=== PATIENT | female | born 1965 | race Caucasian/White ===

== ENCOUNTER 2019-10-22 10:04 | Inpatient (IN) | payer MEDICARE, MEDICAID, SELFPAY ==
[2019-10-22] VITALS (23 sets, daily range): BP systolic 103–145; BP diastolic 58–91; PULSE 58–98; RESP 20–46; TEMP 36.9–37.4; O2SAT 86–96; BMI 37.9
--- NOTE | 2019-10-22 09:22 | ED_ITS ---
Entered by Angeles Taylor, acting as scribe for HPI - SOB/Dyspnea General: Chief Complaint: Shortness of Breath/Dyspnea Stated Complaint: RESP DISTRESS Time Seen by Provider: 10/22/19 10:07 History of Present Illness: HPI Narrative: 54 yo female presents with respiratory distess. Pt is on CPAP upon arrival. Pt states that she has been having a low grade fever. Pt states that she has had back and abdomen pain. Pt states that her pain is about a 4/10. Pt states that she has a moderatly productive cough, she is coughing up clear sputum. MD elicited complaint: shortness of breath Severity: moderate Exacerbating factors: lying flat, exertion and coughing Relieving factors: other (CPAP) Associated symptoms: Reports abdominal pain, cough, fever(s) and other (back pain); Deny chest congestion, chest pain, dizziness, extremity pain, hemoptysis, nause a, orthopnea, palpitations, polydipsia, polyuria or vomiting Treatment prior to arrival: other (CPAP) Review of Systems Const: Reports: fever and fatigue; Denies: chills, body aches, change in appetite, change in weight, malaise or night sweats Eyes: Denies: change in vision, eye discharge or eye redness ENMT: Denies: throat pain, painful swallowing, hoarseness, dental pain, ear pain, ear discharge, Change in hearing, nasal discharge or nasal congestion Card: Denies: chest pain, palpitations, edema, swelling of feet/ankles, shortness of breath on exertion, shortness of breath when lying down or leg pain with exertion Resp: Reports: shortness of breath; Denies: wheezing, coughing up blood or chest congestion GI: Reports: abdominal pain; Denies: nausea, vomiting, vomiting blood, coffee grounds in vomit, constipation, bloating or black tarry stool : Denies: urinary urgency, urinary hesitancy, urinary dribbling, decreased urine ouput or vaginal bleeding Musc: Reports: back pain; Denies: neck pain, extremity pain, extremity swelling, joint pain, joint swelling or redness Skin/Breast: Denies: rash, itching, redness, sores or new lesion Neuro: Denies: headache, numbness in extremities, weakness in extremities, changes in sensation, difficulty walking, frequent falls, dizziness or vertigo Psych: Denies: anxiety or depression Endo: Denies: excessive urination, excessive thirst, tired all the time, cold intolerance, excessive sweating or heat intolerance Memo/Lymph: Denies: easy bruising, easy bleeding or enlarged lymph nodes All/Imm: Denies: hives, throat swelling, facial swelling, acute wheezing or seasonal allergies PFSH ED PFSH: Statuses (acute, chronic, etc) shown below reflect problem list status as previously entered and may not be historically accurate Medical History (Updated 10/26/19 @ 21:23 by Jairon Smith MD) Acute on chronic respiratory failure with hypoxemia (Acute) Anxiety and depression (Acute) Chronic pain (Acute) COPD (chronic obstructive pulmonary disease) (Inactive) GERD (gastroesophageal reflux disease) (Acute) Hepatitis C virus infection cured after antiviral drug therapy (Acute) Hyperlipemia (Acute) Hypertension (Acute) Insomnia (Acute) Obstructive sleep apnea (Acute) Ovarian cyst (Acute) Pulmonary embolism (Acute) Spinal stenosis (Acute) Surgical History (Updated 10/26/19 @ 21:23 by Jairon Smith MD) H/O section (Acute) Status post left foot surgery (Acute) Family History (Updated 10/22/19 @ 16:14 by Ramses Martin MD) Mother Cancer Breast cancer Social History (Updated 10/26/19 @ 21:24 by Jairon Smith MD) Smoking and tobacco status: current every day smoker Alcohol intake: never Substance/Drug Use: current Substance/Drug use frequency: daily Substance/Drug use type: Marijuana Last substance use date: 10/26/19 Household members: children Physical Exam Const: COMMON NORMALS: oriented x3; apparent distress and negative for healthy appearing GENERAL APPEARANCE: cooperative ORIENTATION/CONSCIOUSNESS: Yes awake, Yes oriented to person, Yes oriented to place and Yes oriented to time HENMT: COMMON NORMALS: normocephalic, head/scalp atraumatic, hearing grossly normal bilaterally, moist oral mucous membranes and oropharynx normal HEAD & SCALP: normal to inspection, normocephalic and atraumatic Eye: COMMON NORMALS: PERRL, EOMs intact bilaterally, conjunctivae normal and no scleral icterus CONJUNCTIVA: Yes conjunctivae normal PUPIL: Yes PERRL Neck/C-Spine: COMMON NORMALS: full ROM, no lymphadenopathy, supple and no JVD Lymph: LYMPHATIC: no lymphadenopathy noted Resp: COMMON NORMALS: normal respiratory effort and clear to auscultation bilaterally AUSCULTATION: clear to auscultation bilaterally, no rales, no rhonchi and no wheezes Cardio: COMMON NORMALS: no JVD, regular rate and regular rhythm RATE: regular rate RHYTHM: regular rhythm GI: COMMON NORMALS: normal to inspection, nondistended, normoactive bowel sounds, soft to palpation, non-tender, no hepatosplenomegaly and no masses PALPATION: Yes soft and Yes no hepatosplenomegaly : COMMON NORMALS: Yes no CVA tenderness BLADDER/KIDNEY EXAM: Yes no CVA tenderness Back/Pelvis: COMMON NORMALS: no CVA tenderness and thoracic and lumbar spine normal to inspection Extremity: COMMON NORMALS: normal to inspection, full ROM, normal capillary refill, no calf tenderness and no pedal edema Neuro: COMMON NORMALS: oriented x3 SENSORIUM/ORIENTATION: Yes oriented to person, Yes oriented to place and Yes oriented to time Psych: COMMON NORMALS: mental status grossly normal, denies homicidal ideation and denies suicidal ideation Skin: COMMON NORMALS: no rashes or lesions noted GENERAL SKIN EXAM: no rashes or lesions noted Course Vital Signs: Vital signs: Vital Signs Temperature 97.9 F 10/25/19 12:57 Pulse Rate 68 10/25/19 12:57 Respiratory Rate 18 10/25/19 12:57 Blood Pressure 126/78 10/25/19 12:57 Pulse Oximetry 85 L 10/25/19 13:10 MDM - SOB/Dyspnea Lab Data: Labs: Lab Results 10/22/19 10/22/19 10/22/19 Range/Units 09:15 09:15 09:24 WBC 11.2 H (4.0-10.0) 10^3/ uL RBC 4.51 (4.1-5.3) 10^6/u L Hgb 13.8 (11.5-15.3) g/dL Hct 42.8 (37.0-47.0) % MCV 94.9 (81-99) fL MCH 30.6 (28.0-34.0) pg MCHC 32.2 (30.0-36.0) g/dL RDW 12.3 (12.1-15.1) % Plt Count 156 (130-400) 10^3/c mm MPV 11.3 H (7.4-10.4) fL Neut % (Auto) 85.6 % Lymph % (Auto) 7.6 % [place] % (Auto) 5.9 % Eos % (Auto) 0.1 % Baso % (Auto) 0.4 % Neut # (Auto) 9.6 H (1.8-7.7) 10^3/u L Lymph # (Auto) 0.9 (0.8-4.8) 10^3/u L [place]ks # (Auto) 0.7 (0.2-0.9) 10^3/u L Eos # (Auto) 0.0 (0.0-0.8) 10^3/u L Baso # (Auto) 0.0 (0.0-0.1) 10^3/u L Nucleated RBC % (a uto) 0 % Nucleated RBCs # 0.0 /100WBC Specimen Type Arterial Sample Site Radial, left ABG pH 7.38 (7.35-7.45) ABG pCO2 53.5 H (35-45) mmHg ABG pO2 62.3 L (80.0-100.0) mmH g ABG HCO3 31.6 H (22-26) mmol/L ABG Base Excess 4.9 H (-2.0-2.0) mmol/ L Glenn Test Pos Hematocrit 46.8 (37-47) % O2 Delivery Device Bipap FiO2 50.0 % Mode BiPAP 22/10 Specimen Drawn By [facility] ID broma Sodium 137 (136-145) mmol/L Potassium 3.5 (3.5-5.1) mmol/L Chloride 99 (98-107) mmol/L Carbon Dioxide 27 (22-29) mmol/L Anion Gap 14.5 (5-19) BUN 5 L (6-20) mg/dL Creatinine 0.5 (0.5-0.9) mg/dL GFR Calculation 127.6 (90-130) mL/min Glucose 138 H (74-109) mg/dL Calcium 8.7 (8.6-10.0) mg/Dl Total Bilirubin 0.8 (0.15-1.2) mg/dL AST 8 (0-32) U/L ALT 8 (0-33) U/L Alkaline Phosphata se 90 (35-105) IU/L Total Protein 6.1 L (6.6-8.7) g/dL Albumin 3.7 (3.5-5.2) g/dL Globulin 2.4 (1.3-4.6) g/dL Imaging Data^: CT Chest: My impression: WS: [id number] CTA scan of the chest with IV contrast. Additional two-dimensional coronal and sagittal reconstruction and MIP images was performed. 10/22/2019 Clinical Data: dyspnea Comparison: CTA of the chest, 05/24/2019. DLP: 1076.[address] scans at [facility] use at least one of these dose optimization techniques: automated exposure control; mA and/or kV adjustment per patient size (includes targeted exams where dose is matched to clinical indication); or iterative reconstruction. Findings: The central pulmonary arteries fill normally with no evidence of intermittent luminal filling defects. The small vessels of the lower lobes appear to have small intraluminal defects which could indicate minimal pulmonary embolic disease. No nodules, masses or effusions are seen. Groundglass opacities noted in the prior study are not present. There is minimal atelectasis in the lingula of the left upper lobe. There is a small 0.8 cm pleural-based density in the posterior aspect of the left lower lobe seen best on image 29 of 63 on the lung windows which has not changed. The heart size is normal with no pericardial effusion. The pulmonary arterial system and thoracic aorta demonstrate no abnormalities or dil atations. There is no axillary or significant mediastinal adenopathy. The thyroid gland shows normal enhancement. The trachea bifurcates into the bronchi. The upper abdomen shows no abnormalities. The visualized liver, spleen, pancreas, gallbladder, adrenal glands and superior poles of the kidneys are not remarkable. The bones of the thoracic and upper lumbar spine are not remarkable. CT/CT angio chest PE protcl [id number] Impression: 1. Possible bilateral small pulmonary emboli. 2. Groundglass opacities have resolved. 3. Minimal atelectasis in the lingula of left upper lobe and no change in pleural based density in left lower lobe. 4. Emergency room was contacted at 1330 hours. Dictated By: Nanette Jones MD Signed By: Nanette Jones MD CXR: Radiologist's impression: Patient: Allan Schneider MR#: [id number] : 10/18/2020 Acct:[id number] Age/Sex: 1Y 00M / M ADM Date: 10/22/19 Loc: ER Attending Dr: Ordering Physician: Susana Singh Date of Service: 10/22/19 Procedure(s): XR chest 2V* [id number] Accession Number(s): [id number] Report Number: [id number] WS: [id number] Chest 2 views, 10/22/2019 Clinical Data: fever Comparison: None. Findings: No nodules, masses or effusions are seen. The heart is normal. The pulmonary vascularity is not increased. No pneumonia or pneumothorax is seen. XR/XR chest 2V* [id number] Impression: Negative chest. Dictated By: Nanette Jones MD Signed By: Nanette Jones MD Signed Date/Time:10/22/19 1237 DD/ 1230 Discharge Plan Discharge Patient Disposition: Admitted As Inpatient Admit Provider: Ramses Martin Condition: Stable Discharge Orders: Discharge Order (Routine); Ordered 10/25/19 Ordered By: Willard Gomes Referrals: Tayler Lan APRN [Referring] - 4-7 days (PLEASE CALL TAYLER LAN APRN SaturdayOctober TO MAKE A FOLLOW UP APPOINTMENT.) Discharge Activity: Oxygen as instructed Patient Instructions: Nicotine (Absorbed through the skin), Apixaban (By mouth), Pulmonary Embolism (GEN), How to Stop Smoking (GEN), Chronic Obstructive Pulmonary Disease (GEN), COPD Stoplight Discharge Date/Time: 10/22/19 15:56 Coding Level of Care Code ED Winter Sports Manager for Chg Fwd Exam Problem Focused The documentation recorded by the Brandon loyola Kialy, accurately reflects the service I personally performed and the decisions made by Christofer mcgowan Curtis L, DO Oct 22, 2019 10:04
--- NOTE | 2019-10-22 10:32 | ECG_ITS ---
Measurements Intervals [place] Rate: 100 P: 77 ID: [id number] QRS: 95 QRSD: 100 T: 72 QT: 336 QTc: 434 SINUS TACHYCARDIA BORDERLINE RIGHT AXIS DEVIATION [QRS AXIS > 90] NONSPECIFIC T-WAVE ABNORMALITY ABNORMAL RHYTHM ECG Compared to ECG 08/28/2019 10:11:35 T-wave abnormality now present Sinus rhythm no longer present Electronically Signed On 10-22-2019 17:09:25 CELLULAR EQUIPMENT REPAIRER by Eliza Paul M.D. [email or web address]
--- NOTE | 2019-10-22 10:49 | XR_ITS ---
WS: [id number] Portable AP upright chest, 10/22/2019 Clinical Data: dyspnea Comparison: Portable chest, 08/28/2019. Findings: No nodules, masses or effusions are seen. The heart is normal. The pulmonary vascularity is not increased. No pneumonia or pneumothorax is seen. There is scarring at the right lung base unchan ged. The diaphragms are flattened. There are monitor leads on the chest wall. XR/XR chest 1V portable [id number] Impression: Hyperinflation.
[2019-10-22 11:06] LABS: Basophils % 0.4 %; Eosinophils % 0.1 %; Hematocrit 42.8 % (37.0-47.0); Hemoglobin 13.8 g/dL (11.5-15.3); Lymphocytes # 0.9 10^3/uL (0.8-4.8); Lymphocytes % 7.6 %; Mean Corpuscular HGB Conc 32.2 g/dL (30.0-36.0); Mean Corpuscular Hemoglobin 30.6 pg (28.0-34.0); Mean Corpuscular Volume 94.9 fL (81-99); Mean Platelet Volume 11.3 fL (7.4-10.4); Monocytes # 0.7 10^3/uL (0.2-0.9); Monocytes % 5.9 %; Neutrophils # 9.6 10^3/uL (1.8-7.7); Neutrophils % 85.6 %; Nucleated Red Blood Cells % 0 %; Platelet Count 156 10^3/cmm (130-400); Red Blood Count 4.51 10^6/uL (4.1-5.3); Red Cell Distribution Width 12.3 % (12.1-15.1); White Blood Count 11.2 10^3/uL (4.0-10.0)
[2019-10-22 11:18] LABS: Alanine Aminotransferase 8 U/L (0-33); Albumin Level 3.7 g/dL (3.5-5.2); Alkaline Phosphatase 90 IU/L (35-105); Anion Gap 14.5 (5-19); Aspartate Amino Transferase 8 U/L (0-32); Blood Urea Nitrogen 5 mg/dL (6-20); Calcium 8.7 mg/Dl (8.6-10.0); Carbon Dioxide 27 mmol/L (22-29); Chloride 99 mmol/L (98-107); Globulin 2.4 g/dL (1.3-4.6); Glomerular Filtration Rate 127.6 mL/min (90-130); Glucose 138 mg/dL (74-109); Potassium 3.5 mmol/L (3.5-5.1); Sodium 137 mmol/L (136-145); Total Bilirubin 0.8 mg/dL (0.15-1.2); Total Protein 6.1 g/dL (6.6-8.7)
[2019-10-22 11:26] LABS: ABG PCO2 53.5 mmHg (35-45); ABG PH Result 7.38 (7.35-7.45); Arterial Blood Gas Hematocrit 46.8 % (37-47); Base Excess ABG 4.9 mmol/L (-2.0-2.0); Blood Gas Allen Test Pos; Blood Gas Sample Site Radial, left; Blood Gas Sample Type Arterial; HCO3 ABG 31.6 mmol/L (22-26); PO2 ABG 62.3 mmHg (80.0-100.0)
--- NOTE | 2019-10-22 11:50 | CT_ITS ---
WS: [id number] CTA scan of the chest with IV contrast. Additional two-dimensional coronal and sagittal reconstructio n and MIP images was performed. 10/22/2019 Clinical Data: dyspnea Comparison: CTA of the chest, 05/24/2019. DLP: 1076.[address] scans at [facility] use at least one of these dose optimization techniques: automat ed exposure control; mA and/or kV adjustment per patient size (includes targeted exams where dose is matched to clinical indication); or iterative reconstruction. Findings: The central pulmonary arteries fill normally with no evidence of intermittent luminal filling defects . The small vessels of the lower lobes appear to have small intraluminal defects which could indicate minimal pulmonary embolic disease. No nodules, masses or effusions are seen. Groundglass opacities noted in the prior study are not pres ent. There is minimal atelectasis in the lingula of the left upper lobe. There is a small 0.8 cm pleu ral-based density in the posterior aspect of the left lower lobe seen best on image 29 of 63 on the l rohit windows which has not changed. The heart size is normal with no pericardial effusion. The pulmona ry arterial system and thoracic aorta demonstrate no abnormalities or dilatations. There is no axilla ry or significant mediastinal adenopathy. The thyroid gland shows normal enhancement. The trachea bif urcates into the bronchi. The upper abdomen shows no abnormalities. The visualized liver, spleen, pancreas, gallbladder, adrena l glands and superior poles of the kidneys are not remarkable. The bones of the thoracic and upper lumbar spine are not remarkable. CT/CT angio chest PE protcl [id number] Impression: 1. Possible bilateral small pulmonary emboli. 2. Groundglass opacities have resolved. 3. Minimal atelectasis in the lingula of left upper lobe and no change in pleur al based density in left lower lobe. 4. Emergency room was contacted at 1330 hours.
[2019-10-22] MEDS: LORazepam 2 mg/mL INJ 1 mL 1 MG IVP (12:21)
--- NOTE | 2019-10-22 13:28 | USCV_ITS ---
Tomeka Marshall Age: 54 Gender: F : 1965 Exam Date: 10/22/2019 13:44 Ordering Phys: Jason Beaulieu DO Technologist: Tonya Flood Exam Location: [facility] [place] Indication: PE HISTORY: PE PROCEDURES: The venous duplex Doppler examination of both lower extremities was performed in the standard fashion. The following venous structures were evaluated: common femoral vein, profunda vein, proximal portion of the greater saphenous vein, superficial femoral vein, and the popliteal vein. In addition, the posterior tibial and peroneal trunk were evaluated. Serial compression, augmentation maneuvers, and spectral Doppler flow evaluation were performed. FINDINGS: No DVT seen in any vessel examined CONCLUSIONS Negative bilateral lower extremity venous Doppler ultrasound. Dr. Nanette Jones MD (Electronically Signed) Final Date: 22 October 2019 14:16 S
[2019-10-22] MEDS: enoxaparin 100 mg/mL Syringe SUBCUT (13:49)
--- NOTE | 2019-10-22 15:03 | ECG_ITS ---
Measurements Intervals [place] Rate: 74 P: 72 NE: 169 QRS: 87 QRSD: 109 T: 91 QT: 410 QTc: 455 SINUS RHYTHM Compared to ECG 08/28/2019 10:11:35 No significant changes Electronically Signed On 10-22-2019 17:07:43 CASHIER MANAGER by Eliza Paul M.D. [email or web address]
--- NOTE | 2019-10-22 15:03 | USCV_ITS ---
Rolando Tomeka Age: 54 Gender: F : 1965 Exam Date: 10/22/2019 17:16 Ordering Phys: Ramses Martin MD Technologist: Tonya Flood Exam Location: [facility] [place] Indication: PE BILATERAL BP: 130 / 72 HR: 64 Rhythm: Sinus Technical Quality: Adequate MEASUREMENTS (Male / Female) Normal Values 2D ECHO LV Diastolic Diameter PLAX 4.7 cm 4.2 - 5.9 / 3.9 - 5.3 cm LV Systolic Diameter PLAX 3.5 cm LV Chamber Size 4.1 cm IVS Diastolic Thickness 0.9 cm 0.6 - 1.0 / 0.6 - 0.9 cm IVS Systolic Thickness 1.5 cm LVPW Diastolic Thickness 1.3 cm 0.6 - 1.0 / 0.6 - 0.9 cm LVPW Systolic Thickness 1.2 cm RV Chamber Size 3.2 cm LVOT Diameter 2.0 cm LV Ejection Fraction 2D Teich 51.1 % LV Ejection Fraction MOD 2C 64.1 % LV Ejection Fraction 2C AL 67.3 % LA Diameter 4.0 cm LA Width 2.7 cm LA Height 4.9 cm RA Width 3.3 cm RA Height 4.0 cm Aorta at Sinotubular Diameter 2.9 cm M-MODE LV Diastolic Diameter MM 4.7 cm 4.2 - 5.9 / 3.9 - 5.3 cm LV Systolic Diameter MM 3.1 cm LV Ejection Fraction MM Teich 63.3 % IVS Diastolic Thickness MM 0.8 cm 0.6 - 1.0 / 0.6 - 0.9 cm IVS Systolic Thickness MM 1.4 cm LVPW Diastolic Thickness MM 1.3 cm 0.6 - 1.0 / 0.6 - 0.9 cm LVPW Systolic Thickness MM 1.4 cm RV Diastolic Diameter MM 2.4 cm Aortic Annulus Diameter 3.1 cm LA Ao Ratio MM 1.3 MV E Point Septal Separation 0.5 cm DOPPLER AV Peak Velocity 169.0 cm/s LVOT Peak Velocity 111.0 cm/s AV Area Cont Eq vti 2.4 cm squared AV Area Cont Eq pk 2.2 cm squared MV Area PHT 2.8 cm squared Mitral E to A Ratio 1.1 MV E' Velocity 10.0 cm/s Mitral E to MV E' Ratio 7.4 Mitral E to LV E' Lateral Ratio 7.7 Mitral E to LV E' Septal Ratio 7.1 TR Peak Velocity 169.1 cm/s TR Peak Gradient 11.4 mmHg TR Mean Velocity 107.1 cm/s TR Mean Gradient 5.4 mmHg TR Velocity Time Integral 32.1 cm TV Peak E Velocity 62.0 cm/s Right Atrial Pressure 8.0 mmHg Pulmonary Artery Systolic Pressu 19.4 mmHg PV Peak Velocity 67.0 cm/s RV Acceleration Time 0.2 s RV Ejection Time 0.3 s RV AcT/ET 0.5 FINDINGS Left Ventricle Normal left ventricular cavity size. Normal left ventricular systolic function. No regional wall motion abnormalities. Left ventricular ejection fraction is estimated at 60 %. Grade I/IV diastolic dysfunction (abnormal relaxation filling pattern), normal to mildly elevated filling pressures. Right Ventricle The right ventricle is normal in size and function. Right Atrium The right atrium is normal in size. Left Atrium The left atrium is normal in size. Mitral Valve Structurally normal mitral valve without significant stenosis or prolapse. There is no mitral regurgitation. Aortic Valve Structurally normal aortic valve without significant sclerosis or stenosis. There is no aortic regurgitation. Tricuspid Valve Structurally normal tricuspid valve without significant stenosis or regurgitation. Pulmonary artery systolic pressure is normal. Pulmonic Valve Structurally normal pulmonic valve without significant stenosis. There is no pulmonic regurgitation. Pericardium Normal pericardium without effusion. Aorta Normal ascending aorta dimension. CONCLUSIONS 1-Normal left ventricular cavity size. Normal left ventricular systolic function. No regional wall motion abnormalities. Left ventricular ejection fraction is estimated at 60 %. Grade I/IV diastolic dysfunction (abnormal relaxation filling pattern), normal to mildly elevated filling pressures. 2-There is no pericardial effusion. 3-No significant valve abnormalities. 4-Pulmonary artery systolic pressure is within normal limits. 5-Right atrial pressure is around 5 mm of mercury. 6-No significant change since the prior echocardiogram study of 07/29/2017. Eduin Easton MD (Electronically Signed) Final Date: 22 October 2019 18:34 S
--- NOTE | 2019-10-22 15:03 | US_ITS ---
WS: [id number] Pelvic ultrasound, 10/22/2019 Clinical Data: L ovarian cyst seen previosly, has bilatreral PE,now LLQpain Comparison: None. Findings: The uterus measures 3.22 cm x 4.89 cm x 9.82 cm. The endometrium is 0.82 cm. There is minimal fluid in the endometrium. No intrauterine or a bnormal intrauterine mass is seen. The cervical length is 8.66 cm. The left ovary measures 3.58 cm x 3.83 cm x 4.24 cm with a simple cyst with greatest dimension 1.18 cm. The right ovary measures 1.55 cm x 2.35 cm x 2.66 cm with no cysts or masses. US/US pelvic complete* [id number] Impression: 1. Negative for acute pelvic abnormalities. 2. Small left ovarian cyst.
[2019-10-22 15:38] LABS: BIPAP 22/10; Blood Gas Drawn By BROMA; Oxygen Device BIPAP
--- NOTE | 2019-10-22 16:06 | P.HP_ITS ---
Providers/Chief Complaint Admitting Physician: Ramses Martin MD Chief Complaint: RESP DISTRESS History of Present Illness Tomeka Marshall is a 54 year old female with a past medical history of COPD, on 3 L nasal cannula, hypertension, type 2 diabetes mellitus, hepatitis C status post treatment, obstructive sleep apnea, chronic pain, insomnia, hypothyroidism, GERD, anxiety depression, spinal stenosis, who presents to the emergency room due to complaints of shortness of breath and productive cough. Patient states that she is had increased shortness of breath and productive cough for the last few weeks. Patient states that she lives at home, has a 16-year-old daughter, no sick contacts, no recent travel. Patient denies any recent hospitalizations, denies any recent antibiotic use, denies any recent steroid use. Patient states that she has been more short of breath with exertion, can barely get up to use the bathroom before getting short of breath, which is new for her, no complaints of bilateral extremity edema, no paroxysmal nocturnal dyspnea, no orthopnea, no chest pain, no lightheadedness, no dizziness. Patient states that she is been more bedridden for the last 3 days, due to shortness of breath, fatigue, malaise, no fevers, no chills. Denies any recent history of surgeries in the past year. Denies any recent history of travel. Denies any history of blood clots. Denies any family history of blood clots. Denies any any personal history of cancer. Patient is a smoker. Patient does take tramadol 50 mg once daily for pain. She is also on Latuda, Lamictal, Cymbalta, Abilify, Ambien for chronic pain and insomnia. Review of Systems Const: Reports: fatigue and malaise; Denies: fever or chills Eyes: Denies: change in vision ENMT: Denies: hoarseness, nasal discharge or nasal congestion Card: Denies: chest pain or palpitations Resp: Reports: shortness of breath, productive cough, change in phlegm color and other (1 episode of hemoptysis) GI: Denies: abdominal pain, nausea, vomiting or vomiting blood : Denies: flank pain, difficulty urinating or painful urination Musc: Denies: neck pain or back pain Skin/Breast: Denies: rash Neuro: Denies: headache, numbness in extremities or weakness in extremities Endo: Denies: excessive urination Memo/Lymph: Denies: easy bruising Medications/Allergies Home Medications Medication Instructions Recorded Confirmed Last Taken Type albuterol sulfate 2.5 mg INHALATION Q6H PRN 10/22/19 10/22/19 Unknown History albuterol sulfate [Ventolin HFA] 2 puff INHALATION Q4H PRN 10/22/19 10/22/19 Unknown History aripiprazole [Abilify] 5 mg PO DAILY 10/22/19 10/22/19 Unknown History atorvastatin [Lipitor] 20 mg PO QPM 10/22/19 10/22/19 Unknown History duloxetine [Cymbalta] 120 mg PO QAM 10/22/19 10/22/19 Unknown History gabapentin 300 mg PO BID 10/22/19 10/22/19 Unknown History glimepiride 2 mg PO DAILY 10/22/19 10/22/19 Unknown History lamotrigine 200 mg PO QAM 10/22/19 10/22/19 Unknown History levothyroxine 88 mcg PO DAILY 10/22/19 10/22/19 Unknown History lurasidone [Latuda] 20 mg PO QAM 10/22/19 10/22/19 Unknown History metformin 1,000 mg PO BID 10/22/19 10/22/19 Unknown History omeprazole 40 mg PO DAILY 10/22/19 10/22/19 Unknown History ramelteon 8 mg PO BEDTIME 10/22/19 10/22/19 Unknown History trazodone 150 mg PO BEDTIME 10/22/19 10/22/19 Unknown History zolpidem [Ambien] 5 mg PO BEDTIME 10/22/19 10/22/19 Unknown History Allergies Allergy/AdvReac Type Severity Reaction Status Date / Time levofloxacin [From Levaquin] Allergy Unknown Verified 10/22/19 09:33 Sulfa (Sulfonamide Allergy Unknown Verified 10/22/19 09:33 Antibiotics) PFSH Acute PFSH: Statuses (acute, chronic, etc) shown below reflect problem list status as previously entered and may not be historically accurate Medical History (Updated 10/22/19 @ 16:20 by Ramses Martin MD) Anxiety and depression (Acute) Chronic pain (Acute) COPD (chronic obstructive pulmonary disease) (Inactive) GERD (gastroesophageal reflux disease) (Acute) Hepatitis C virus infection cured after antiviral drug therapy (Acute) Hyperlipidemia (Acute) Hypertension (Acute) Insomnia (Acute) Obstructive sleep apnea (Acute) Spinal stenosis (Acute) Surgical History (Updated 10/22/19 @ 16:14 by Ramses Martin MD) H/O section (Acute) Status post left foot surgery (Acute) Family History (Updated 10/22/19 @ 16:14 by Ramses Martin MD) Mother Cancer Breast cancer Social History (Updated 10/22/19 @ 16:14 by Ramses Martin MD) Smoking and tobacco status: current every day smoker Alcohol intake: never Substance/Drug Use: never Household members: children Vitals/I&O/Wt Last Vital Signs Temp 99.4 F 10/22/19 09:20 Pulse 71 10/22/19 15:44 Resp 30 H 10/22/19 15:44 BP 126/78 10/22/19 15:44 Pulse Ox 94 10/22/19 15:44 Weight last 48 hrs Weight 106.594 kg Physical Exam Const: COMMON NORMALS: oriented x3 EXAM LIMITATIONS: altered mental status GENERAL APPEARANCE: cooperative ORIENTATION/CONSCIOUSNESS: Yes awake, Yes oriented to person and Yes other (Sitting up and leaning forward, on BiPAP) Eye: COMMON NORMALS: PERRL and EOMs intact bilaterally Neck/C-Spine: COMMON NORMALS: full ROM and no lymphadenopathy Lymph: LYMPHATIC: no lymphadenopathy noted Resp: COMMON NORMALS: normal respiratory effort, no retractions, no use of accessory muscles and clear to auscultation bilaterally Cardio: COMMON NORMALS: no JVD, regular rate, regular rhythm, S1 normal heart sound, S2 normal heart sound, no gallops, no clicks, no murmurs and no rub GI: COMMON NORMALS: normal to inspection, nondistended, normoactive bowel sounds, soft to palpation, non-tender, no hepatosplenomegaly, no masses and no bruits Back/Pelvis: COMMON NORMALS: no CVA tenderness and thoracic and lumbar spine normal to inspection Extremity: COMMON NORMALS: full ROM, normal capillary refill, no clubbing, cyanosis or edema, no calf tenderness and no pedal edema Neuro: COMMON NORMALS: oriented x3, CN's II-XII intact bilaterally, moves all extremities and no focal motor deficits Psych: COMMON NORMALS: mental status grossly normal, thought process normal and cooperative Skin: COMMON NORMALS: no rashes or lesions noted Data Imaging^: CT Chest: Radiologist's impression: 1.Possible bilateral small pulmonary emboli. 2. Groundglass opacities have resolved. 3. Minimal atelectasis in the lingula of left upper lobe and no change in pleural based density in left lower lobe EKG^: EKG 1: My Interpretation: EKG shows sinus tachycardia, incomplete RBBB, T wave inversions V1 to V2, right axis deviation, A&P Assessment and plan (1) Acute and chronic respiratory failure, unspecified whether with hypoxia or hypercapnia: Multifactorial secondary to COPD exacerbation, bilateral pulmonary embolism Assessment: -Admit to ICU -Gentle hydration IV -Solu-Medrol -Doxycycline for anti-inflammatory effect -Heparin drip -Currently on BiPAP 11/06, de-escalate as needed -Monitor respiratory status closely -Patient is agreeable to elective intubation if required -Cardiac echocardiogram to monitor right heart strain, telemetry monitoring Status: Acute Code(s): J96.20 - Acute and chronic respiratory failure, unspecified whether with hypoxia or hypercapnia (2) Bilateral pulmonary embolism: -No significant risk factors, except 3 days of bedrest for COPD exacerbation -Can consider hypercoagulable work-up given young age -However first dose of Lovenox was already given, which can obscure results Status: Acute Code(s): I26.99 - Other pulmonary embolism without acute cor pulmonale (3) COPD with exacerbation: 3 L oxygen dependent at home, as above Status: Acute Code(s): J44.1 - Chronic obstructive pulmonary disease with (acute) exacerbation (4) Hypothyroidism: Continue home meds Status: Acute Code(s): E03.9 - Hypothyroidism, unspecified (5) Insomnia: -Patient is on Latuda, Lamictal, Cymbalta, Abilify, Ambien for chronic pain and insomnia -This is quite concerning giving her COPD and 3 L oxygen dependent -Has a high risk of respiratory depression, will have to rethink these medications as outpatient Status: Acute Code(s): G47.00 - Insomnia, unspecified (6) Chronic pain: Tramadol Status: Acute Code(s): G89.29 - Other chronic pain (7) Hyperlipidemia: Status: Acute Code(s): E78.5 - Hyperlipidemia, unspecified (8) Hypertension: Status: Acute Code(s): I10 - Essential (primary) hypertension (9) Left ovarian cyst: -Patient is 57 years old, postmenopausal, has a 3 cm left ovarian cyst seen on previous imaging, denies bloody stools, but states that she is had about a 30 pound weight loss in the last 3 to 4 months, has left lower quadrant abdominal pain -We will do an ultrasound of the pelvis -This is concerning given her bilateral PEs, weight loss, left ovarian cyst -Consider further work-up based on results, Status: Acute Code(s): N83.202 - Unspecified ovarian cyst, left side Attestations Medical Necessity Statement*: Patient requires inpatient admission, greater than 2 midnights, ICU admission, for bilateral pulmonary embolism, COPD exacerbation, acute hypoxic hypercarbic respiratory failure Coding Level of Care Code Acute Publicity Expert for Chg Fwd Diagnoses Acute and chronic respiratory failure, unspecified whether with hypoxia or hypercapnia J96.20 Bilateral pulmonary embolism I26.99 COPD with exacerbation J44.1 Hypothyroidism E03.9 Insomnia G47.00 Chronic pain G89.29 Hyperlipidemia E78.5 Hypertension I10 Left ovarian cyst N83.202
[2019-10-22 16:11] LABS: Troponin(5th) Baseline 18 ng/mL (0-10)
[2019-10-22 16:17] LABS: NT Pro B Type Natriuretic Pept 86 pg/mL (0-125)
[2019-10-22] MEDS: sodium chloride 0.9% 1,000 ML 75 ML IV (16:19)
--- NOTE | 2019-10-22 16:19 | PC.RESP ---
BIPAP #B3. APNEA ALARM ON
[2019-10-22] MEDS: ipratropium-albuterol 3 mL Neb INHALATION ×3 (16:30→22:59)
[2019-10-22] MEDS: doxycycline 100 MG in sodium chloride 0.9% (plus) 100 ML IV (17:03)
[2019-10-22 17:19] LABS: Glucose Point of Care 211 mg/dL (70-110)
[2019-10-22] MEDS: atorvastatin 40 mg Tablet 20 MG PO (17:30)
[2019-10-22] MEDS: gabapentin 300 mg Capsule PO (17:30)
[2019-10-22 18:21] LABS: Partial Thromboplastin Time 29.1 SECONDS (23.9-36.7); Platelet Count 154 10^3/cmm (130-400)
[2019-10-22] MEDS: heparin drip 25,000 UNIT/500 ML PREMIX 29 UNIT IV (18:30)
[2019-10-22] MEDS: heparin 5,000 unit/mL INJ 1 mL IV (18:37)
[2019-10-22 18:42] LABS: Troponin 5 2HR 15.75 ng/mL (0-10)
[2019-10-22 18:43] LABS: Troponin 5 2HR Delta -2.25 ABS# (0-10)
--- NOTE | 2019-10-22 19:30 | PC.NURSE ---
Patient wants the flu and pneumonia shot tomorrow morning after she wakes up; she would not let me give it to her.
[2019-10-22] MEDS: zolpidem 5 mg Tablet PO (20:37)
[2019-10-22] MEDS: trazodone 150 mg Tablet PO (20:37)
--- NOTE | 2019-10-22 20:57 | ECG_ITS ---
Measurements Intervals [place] Rate: 65 P: 72 TN: 176 QRS: 90 QRSD: 106 T: 91 QT: 430 QTc: 449 SINUS RHYTHM LOW QRS VOLTAGE IN PRECORDIAL LEADS [QRS DEFLECTION < 1.0 mV IN CHEST LEADS] Compared to ECG 10/22/2019 16:56:28 Low QRS voltage now present Electronically Signed On 10-23-2019 15:08:06 [employer]COOPER by Eduin Easton M.D. [id number]
[2019-10-22 23:08] LABS: Troponin 5 6HR 15.22 ng/L (0-10)
[2019-10-22 23:41] LABS: Glucose Point of Care 145 mg/dL (70-110)
[2019-10-23] VITALS (28 sets, daily range): BP systolic 114–150; BP diastolic 62–81; PULSE 52–92; RESP 16–33; TEMP 36.6; O2SAT 84–100; BMI 38.5
[2019-10-23 01:01] LABS: Basophils % 0.1 %; Hematocrit 41.3 % (37.0-47.0); Hemoglobin 13.3 g/dL (11.5-15.3); Lymphocytes # 0.7 10^3/uL (0.8-4.8); Lymphocytes % 6.5 %; Mean Corpuscular HGB Conc 32.2 g/dL (30.0-36.0); Mean Corpuscular Hemoglobin 30.4 pg (28.0-34.0); Mean Corpuscular Volume 94.3 fL (81-99); Mean Platelet Volume 11.6 fL (7.4-10.4); Monocytes # 0.3 10^3/uL (0.2-0.9); Neutrophils % 89.9 %; Nucleated Red Blood Cells % 0 %; Platelet Count 164 10^3/cmm (130-400); Red Blood Count 4.38 10^6/uL (4.1-5.3); Red Cell Distribution Width 12.1 % (12.1-15.1)
[2019-10-23 02:12] LABS: Partial Thromboplastin Time 30.2 SECONDS (23.9-36.7)
[2019-10-23] MEDS: ipratropium-albuterol 3 mL Neb INHALATION ×6 (03:09→23:09)
[2019-10-23 03:16] LABS: Albumin Level 4.2 g/dL (3.5-5.2); Alkaline Phosphatase 85 IU/L (35-105); Anion Gap 13.5 (5-19); Blood Urea Nitrogen 9 mg/dL (6-20); Calcium 9.7 mg/Dl (8.6-10.0); Carbon Dioxide 26 mmol/L (22-29); Chloride 98 mmol/L (98-107); Globulin 1.2 g/dL (1.3-4.6); Glomerular Filtration Rate 165.1 mL/min (90-130); Glucose 124 mg/dL (74-109); Phosphorus 3.1 mg/dL (2.5-4.5); Potassium 4.5 mmol/L (3.5-5.1); Sodium 133 mmol/L (136-145); Total Bilirubin 0.7 mg/dL (0.15-1.2); Total Protein 5.4 g/dL (6.6-8.7)
[2019-10-23] MEDS: enoxaparin 100 mg/mL Syringe SUBCUT (03:16)
[2019-10-23 03:19] LABS: Alanine Aminotransferase 7 U/L (0-33); Aspartate Amino Transferase 8 U/L (0-32)
--- NOTE | 2019-10-23 04:44 | PC.NURSE ---
Patient lost IV access this morning; after the attempts of [address] an IV and failing a call was placed to Dr Bethea. An order to hold and/or stop IV medications was given until a PICC line can be placed later this morning. The heparin gtt was replaced with 100 mg of lovenox subq X one dose and the order for IV doxycycline 100mg was replaced with 100 mg of doxycycline PO X one dose per Dr Bethea.
[2019-10-23 04:46] LABS: Estmated Average Glucose 117; Hemoglobin A1C 5.7 % (4.0-6.0)
[2019-10-23] MEDS: doxycycline 100 mg Tablet PO (05:27)
[2019-10-23] MEDS: lamoTRIgine 100 mg Tablet 200 MG PO (05:27)
[2019-10-23] MEDS: lurasidone 20 mg Tablet PO (05:27)
[2019-10-23] MEDS: duloxetine 60 mg Capsule 120 MG PO (05:28)
--- NOTE | 2019-10-23 05:28 | PC.RESP ---
bipap on standby. bipap # 3
--- NOTE | 2019-10-23 05:32 | PC.NURSE ---
One 20 mg Latuda was dropped on the floor and was wasted with PARMJIT Kendrick. Patricia in Pharmacy notified
[2019-10-23 07:28] LABS: Glucose Point of Care 93 mg/dL (70-110)
--- NOTE | 2019-10-23 07:39 | PC.NURSE ---
switched from bipap to o2 per nc so could eat breakfast
[2019-10-23] MEDS: levothyroxine 88 mcg Tablet PO (08:33)
[2019-10-23] MEDS: pantoprazole DR 40 mg Tablet PO (08:33)
[2019-10-23] MEDS: gabapentin 300 mg Capsule PO ×2 (08:33→17:13)
--- NOTE | 2019-10-23 09:55 | P.PN_ITS ---
Subjective Subjective: Interval history: She is feeling perhaps minimally better. Still requiring almost persistent BiPAP support. Discussion with nursing staff she had taken off only for a short time, and then requested to put it back on. Vitals/I&O/Wt Last Vital Signs Temp 97.8 F 10/23/19 06:00 Pulse 62 10/23/19 08:05 Resp 28 H 10/23/19 08:00 BP 136/68 10/23/19 08:00 Pulse Ox 96 10/23/19 08:03 10/22/19 10/23/19 10/23/19 22:59 06:59 14:59 Intake Total 350 / 350 Output Total 925 / 925 Balance -925 / -925 350 / 350 Weight last 48 hrs Weight 108.437 kg Weight 108.437 kg Weight 105.687 kg Weight 106.594 kg Physical Exam Const: COMMON NORMALS: no apparent distress and oriented x3 HENMT: COMMON NORMALS: oropharynx normal Neck/C-Spine: COMMON NORMALS: no JVD Resp: COMMON NORMALS: normal respiratory effort AUSCULTATION: wheezes (Mild ) and diminished lung sounds Cardio: COMMON NORMALS: no JVD, regular rhythm, S1 normal heart sound, S2 normal heart sound and no murmurs RHYTHM: regular rhythm HEART SOUNDS: S1 normal and S2 normal GI: COMMON NORMALS: normal to inspection, nondistended, normoactive bowel sounds, soft to palpation and non-tender PALPATION: Yes soft Extremity: COMMON NORMALS: no joint enlargement and no pedal edema Neuro: COMMON NORMALS: oriented x3 and moves all extremities Skin: COMMON NORMALS: no rashes or lesions noted GENERAL SKIN EXAM: no rashes or lesions noted A&P Assessment and plan (1) Acute and chronic respiratory failure, unspecified whether with hypoxia or hypercapnia: Multifactorial respiratory failure. Secondary to COPD exacerbation. Bilateral suspected small PE. Continues on anticoagulation. Bilateral groundglass opacities resolved. Minimal atelectasis in lingula of left upper lobe and no change in pleural-based density in left lower lobe. She is a current smoker, at home also reports smoking concentrated marijuana possibly CBD product, and in the past vaping with THC cartridges. Says she has not done vaping recently. Counseled her against any sort of vaping given recent occurrences of severe lung injury and she verbalized understanding. Encouraged against any kind of smoking given chronic lung disease due to risk of progression including cigarettes for marijuana, and she again verbalized understanding. Echocardiogram with normal EF, grade 1 diastolic dysfunction. Continue NIPPV, oxygen support. Continue IV steroids, antibiotic, breathing treatments. She has lost IV access, and is a difficult stick, with no success after at least 4 tries. Heparin drip had to be switched to Lovenox. Will request for a midline catheter. We will transition her to oral anticoagulant. Status: Acute Code(s): J96.20 - Acute and chronic respiratory failure, unspecified whether with hypoxia or hypercapnia (2) Bilateral pulmonary embolism: Per discussion with her does not have an obvious trigger. Possibly immobilization secondary to acute illness. Discussed with her may benefit from anticoagulation lifelong. Consider hypercoagulable work-up on outpatient basis. Status: Acute Code(s): I26.99 - Other pulmonary embolism without acute cor pulmonale (3) COPD with exacerbation: 3 L oxygen dependent at home, as above Status: Acute Code(s): J44.1 - Chronic obstructive pulmonary disease with (acute) exacerbation (4) Hypothyroidism: Continue home meds Status: Acute Code(s): E03.9 - Hypothyroidism, unspecified (5) Insomnia: Patient is on Latuda, Lamictal, Cymbalta, Abilify, Ambien for chronic pain and insomnia, concerning in the setting of oxygen dependent COPD. Status: Acute Code(s): G47.00 - Insomnia, unspecified (6) Chronic pain: Tramadol Status: Acute Code(s): G89.29 - Other chronic pain (7) Hyperlipidemia: Status: Acute Code(s): E78.5 - Hyperlipidemia, unspecified (8) Hypertension: Status: Acute Code(s): I10 - Essential (primary) hypertension (9) Left ovarian cyst: Small left ovarian cyst on ultrasound. No other pelvic abnormalities. Status: Acute Code(s): N83.202 - Unspecified ovarian cyst, left side (10) Smoking addiction: Discussed cessation for 3-1/2 minutes given chronic lung disease, hypoxia with concern for progression. She verbalized understanding. Continue to encourage cessation. Will request for nicotine supplementation for cravings. Status: Acute Code(s): F17.200 - Nicotine dependence, unspecified, uncomplicated Attestations Medical Necessity Statement*: Continue admission for assessment management of acute respiratory failure, with COPD exacerbation and PE. Coding Level of Care Code Acute Surgical Assistant Certified for Chg Fwd Diagnoses Acute and chronic respiratory failure, unspecified whether with hypoxia or hypercapnia J96.20 Bilateral pulmonary embolism I26.99 COPD with exacerbation J44.1 Hypothyroidism E03.9 Insomnia G47.00 Chronic pain G89.29 Hyperlipidemia E78.5 Hypertension I10 Left ovarian cyst N83.202 Smoking addiction F17.200
[2019-10-23] MEDS: ARIPiprazole 10 mg Tablet 5 MG PO (10:47)
[2019-10-23 11:31] LABS: Glucose Point of Care 102 mg/dL (70-110)
--- NOTE | 2019-10-23 13:32 | NUR.SHIFT ---
picc line intact at this time bleeding at site noted pressure drs to area
--- NOTE | 2019-10-23 14:18 | PC.CHAP ---
Pastoral Care Encounter/Spiritual Assessment Type of Contact [] Declined red hat linux engineer visit [] Patient/Family/Request visit [] Outpatient visit [] Follow-up visit [] Physician referral [] Code/Alert [x] Routine visit [] Staff referral [] Actively dying [] Patient sleeping [x] Family support [] [] Out of room [] Palliative care [] [] Receiving care in room [] Pre-surgical visit [] Trauma [] Long length of stay [x] ICU visit [] Other: Relational/Emotional Strength [x] Patient feels connected with others/family/visitors/staff [] Distress [] Loneliness/isolation [] Abandonment Spirituality of Patient [x] Person of Jazzy [] Attends Restorationism of their Jazzy [x] Believes in Prayer [] Reads Bible or Christian materials [] There are Spiritual issues to be addressed [employer] Interventions [x] Prayer [x] Active listening [x] Non-anxious presence [x] Spiritual/emotional support [] Crisis/trauma care [] Spiritual counseling [] Bereavement support [] Provided bereavement packet [] Provided Bible/devotional materials [] Provided toy/stuffed animal, coloring book to patient or family member [x] Completed spiritual assessment [] Provided Communion [] Anointing/[place] [] Salvation [] Other: Impact on Illness or Injury [] Angry [] Fearful [] Anxious [] Often cries [] Exhaustion [] Unable to work [] Unable to attend confucianism [] Unable to walk/stand [] Unable to read [] Unable to drive [] Unable to eat/drink [] Unable to sleep [] Unable to be with family [] Other: Summary Patient stated that there are lots of things I need prayer for but was not specific about anything other than her health and her son who was present in the room. Patient was visited and prayed with by red hat linux engineer Tereso Tobin. Time spent with patient 18 minutes
[2019-10-23 17:11] LABS: Glucose Point of Care 183 mg/dL (70-110)
[2019-10-23] MEDS: atorvastatin 40 mg Tablet 20 MG PO (17:13)
[2019-10-23] MEDS: apixaban 5 mg Tablet 10 MG PO (17:14)
[2019-10-23 20:54] LABS: Glucose Point of Care 122 mg/dL (70-110)
[2019-10-23] MEDS: zolpidem 5 mg Tablet PO (21:36)
[2019-10-23] MEDS: trazodone 150 mg Tablet PO (21:36)
[2019-10-24] VITALS (25 sets, daily range): BP systolic 113–143; BP diastolic 66–94; PULSE 49–86; RESP 16–28; TEMP 36.4–36.9; O2SAT 92–100
--- NOTE | 2019-10-24 00:52 | ECG_ITS ---
Measurements Intervals [place] Rate: 51 P: 71 [place]: 171 QRS: 86 QRSD: 111 T: 84 QT: 464 QTc: 428 SINUS BRADYCARDIA MODERATE INTRAVENTRICULAR CONDUCTION DELAY [110+ ms QRS DURATION] Compared to ECG 10/22/2019 21:19:18 Intraventricular conduction delay now present Sinus rhythm no longer present Electronically Signed On 10-24-2019 14:57:41 GAUGE [employer]KER by Eliza Paul M.D. [id number]
[2019-10-24 02:09] LABS: Troponin T (5th) Once 15 ng/mL (0-10)
[2019-10-24 02:16] LABS: Magnesium 2.1 mg/dL (1.7-2.3); Potassium 4.7 mmol/L (3.5-5.1); Thyroid Stimulating Hormone 3.39 uIU/mL (0.27-4.20)
[2019-10-24] MEDS: ipratropium-albuterol 3 mL Neb INHALATION ×6 (03:41→22:50)
[2019-10-24 05:31] LABS: Basophils % 0.2 %; Eosinophils % 0.5 %; Hematocrit 36.6 % (37.0-47.0); Hemoglobin 11.9 g/dL (11.5-15.3); Lymphocytes # 1.8 10^3/uL (0.8-4.8); Lymphocytes % 27.6 %; Mean Corpuscular HGB Conc 32.5 g/dL (30.0-36.0); Mean Corpuscular Hemoglobin 30.6 pg (28.0-34.0); Mean Corpuscular Volume 94.1 fL (81-99); Mean Platelet Volume 11.5 fL (7.4-10.4); Monocytes # 0.4 10^3/uL (0.2-0.9); Monocytes % 6.4 %; Neutrophils # 4.2 10^3/uL (1.8-7.7); Nucleated Red Blood Cells % 0 %; Platelet Count 151 10^3/cmm (130-400); Red Blood Count 3.89 10^6/uL (4.1-5.3); White Blood Count 6.5 10^3/uL (4.0-10.0)
[2019-10-24] MEDS: lamoTRIgine 100 mg Tablet 200 MG PO (05:38)
[2019-10-24] MEDS: duloxetine 60 mg Capsule 120 MG PO (05:38)
[2019-10-24] MEDS: lurasidone 20 mg Tablet PO (05:38)
[2019-10-24 06:53] LABS: Alanine Aminotransferase 6 U/L (0-33); Albumin Level 3.9 g/dL (3.5-5.2); Alkaline Phosphatase 69 IU/L (35-105); Anion Gap 12.1 (5-19); Aspartate Amino Transferase 6 U/L (0-32); Blood Urea Nitrogen 7 mg/dL (6-20); Calcium 9.5 mg/Dl (8.6-10.0); Carbon Dioxide 30 mmol/L (22-29); Chloride 96 mmol/L (98-107); Globulin 1.5 g/dL (1.3-4.6); Glomerular Filtration Rate 127.6 mL/min (90-130); Glucose 91 mg/dL (74-109); Magnesium 1.8 mg/dL (1.7-2.3); Phosphorus 3.4 mg/dL (2.5-4.5); Potassium 4.1 mmol/L (3.5-5.1); Sodium 134 mmol/L (136-145); Total Bilirubin 0.5 mg/dL (0.15-1.2); Total Protein 5.4 g/dL (6.6-8.7)
[2019-10-24 07:19] LABS: Glucose Point of Care 111 mg/dL (70-110)
[2019-10-24] MEDS: levothyroxine 88 mcg Tablet PO (08:57)
[2019-10-24] MEDS: ARIPiprazole 10 mg Tablet 5 MG PO (08:57)
[2019-10-24] MEDS: apixaban 5 mg Tablet 10 MG PO ×2 (08:57→17:42)
[2019-10-24] MEDS: pantoprazole DR 40 mg Tablet PO (08:58)
--- NOTE | 2019-10-24 09:10 | PC.NURSE ---
dressing change done due to pt dressing soiled and pulled loose
[2019-10-24] MEDS: gabapentin 300 mg Capsule PO ×2 (09:16→17:42)
--- NOTE | 2019-10-24 10:22 | PM.PN ---
Subjective Subjective: Interval history: She is overall feeling better. Denies chest pain. Intermittent cough, sometimes productive of sputum. Vitals/I&O/Wt Last Vital Signs Temp 97.9 F 10/24/19 06:00 Pulse 65 10/24/19 07:49 Resp 19 H 10/24/19 08:00 BP 113/66 10/24/19 08:00 Pulse Ox 94 10/24/19 08:00 10/23/19 10/24/19 10/24/19 22:59 06:59 14:59 Intake Total 450 / 1100 750 / 750 Output Total 600 / 600 Balance 450 / 500 150 / 150 Weight last 48 hrs Weight 108.153 kg Weight 108.437 kg Weight 108.437 kg Weight 105.687 kg Physical Exam Const: COMMON NORMALS: no apparent distress and oriented x3 HENMT: COMMON NORMALS: oropharynx normal Neck/C-Spine: COMMON NORMALS: no JVD Resp: COMMON NORMALS: normal respiratory effort AUSCULTATION: no wheezes (Mild) and diminished lung sounds OTHER: BiPAP mask is on as she was taking a nap. Cardio: COMMON NORMALS: no JVD, regular rhythm, S1 normal heart sound, S2 normal heart sound and no murmurs RHYTHM: regular rhythm HEART SOUNDS: S1 normal and S2 normal GI: COMMON NORMALS: normal to inspection, nondistended, normoactive bowel sounds, soft to palpation and non-tender PALPATION: Yes soft Extremity: COMMON NORMALS: no joint enlargement and no pedal edema Neuro: COMMON NORMALS: oriented x3 and moves all extremities Skin: COMMON NORMALS: no rashes or lesions noted GENERAL SKIN EXAM: no rashes or lesions noted A&P Assessment and plan (1) Acute and chronic respiratory failure, unspecified whether with hypoxia or hypercapnia: She is slowly improving. Air entry sounds better today. No wheezing. Still having intermittent cough. Multifactorial respiratory failure. Secondary to COPD exacerbation. Bilateral suspected small PE. Continues on anticoagulation. Bilateral groundglass opacities resolved. Minimal atelectasis in lingula of left upper lobe and no change in pleural-based density in left lower lobe. She is a current smoker, at home also reports smoking concentrated marijuana possibly CBD product, and in the past vaping with THC cartridges. Says she has not done vaping recently. Counseled her against any sort of vaping given recent occurrences of severe lung injury and she verbalized understanding. Encouraged against any kind of smoking given chronic lung disease due to risk of progression including cigarettes for marijuana, and she again verbalized understanding. Echocardiogram with normal EF, grade 1 diastolic dysfunction. Continue NIPPV, oxygen support. Attempt to switch to oral steroid, antibiotic, breathing treatments. Transitioned her to oral anticoagulant. Status: Acute Code(s): J96.20 - Acute and chronic respiratory failure, unspecified whether with hypoxia or hypercapnia (2) Bilateral pulmonary embolism: Per discussion with her does not have an obvious trigger. Possibly immobilization secondary to acute illness. Discussed with her may benefit from anticoagulation lifelong. Consider hypercoagulable work-up on outpatient basis. Status: Acute Code(s): I26.99 - Other pulmonary embolism without acute cor pulmonale (3) COPD with exacerbation: 3 L oxygen dependent at home, as above Status: Acute Code(s): J44.1 - Chronic obstructive pulmonary disease with (acute) exacerbation (4) Hypothyroidism: Continue home meds Status: Acute Code(s): E03.9 - Hypothyroidism, unspecified (5) Insomnia: Patient is on Latuda, Lamictal, Cymbalta, Abilify, Ambien for chronic pain and insomnia, concerning in the setting of oxygen dependent COPD. Status: Acute Code(s): G47.00 - Insomnia, unspecified (6) Chronic pain: Tramadol Status: Acute Code(s): G89.29 - Other chronic pain (7) Hyperlipidemia: Status: Acute Code(s): E78.5 - Hyperlipidemia, unspecified (8) Hypertension: Status: Acute Code(s): I10 - Essential (primary) hypertension (9) Left ovarian cyst: Small left ovarian cyst on ultrasound. No other pelvic abnormalities. Consider follow-up imaging to assess for any changes in the future. Status: Acute Code(s): N83.202 - Unspecified ovarian cyst, left side (10) Smoking addiction: Discussed cessation for 3-1/2 minutes given chronic lung disease, hypoxia with concern for progression. She verbalized understanding. Continue to encourage cessation. Nicotine supplementation for cravings. Status: Acute Code(s): F17.200 - Nicotine dependence, unspecified, uncomplicated Attestations Medical Necessity Statement*: Continue admission for assessment of management of acute respiratory failure, COPD exacerbation, bilateral PE. Coding Level of Care Code Acute Tunnel Kiln Operator for Chg Fwd Diagnoses Acute and chronic respiratory failure, unspecified whether with hypoxia or hypercapnia J96.20 Bilateral pulmonary embolism I26.99 COPD with exacerbation J44.1 Hypothyroidism E03.9 Insomnia G47.00 Chronic pain G89.29 Hyperlipidemia E78.5 Hypertension I10 Left ovarian cyst N83.202 Smoking addiction F17.200
[2019-10-24 11:00] LABS: Glucose Point of Care 117 mg/dL (70-110)
--- NOTE | 2019-10-24 11:44 | PC.CHAP ---
visited with the patient and found her to be in good spirits and excited to be moving to floor. we prayed together for complete recovery.
[2019-10-24] MEDS: predniSONE 20 mg Tablet 40 MG PO (15:53)
[2019-10-24 16:11] LABS: Glucose Point of Care 176 mg/dL (70-110)
[2019-10-24] MEDS: atorvastatin 40 mg Tablet 20 MG PO (17:41)
--- NOTE | 2019-10-24 18:16 | PC.PT ---
PT note; patient demonstrates safely independent with transfers, and ambulation, ?200 feet distance, with use of walker; also independent with prior known home exercise program; discharge physical therapy at this time
[2019-10-24] MEDS: trazodone 150 mg Tablet PO (20:43)
[2019-10-24] MEDS: zolpidem 5 mg Tablet PO (20:43)
[2019-10-24 22:12] LABS: Glucose Point of Care 182 mg/dL (70-110)
[2019-10-25] VITALS (13 sets, daily range): BP systolic 126–138; BP diastolic 72–84; PULSE 59–84; RESP 18–24; TEMP 36.4–37.1; O2SAT 85–97
[2019-10-25] MEDS: ipratropium-albuterol 3 mL Neb INHALATION ×3 (03:04→10:48)
[2019-10-25] MEDS: lamoTRIgine 100 mg Tablet 200 MG PO (05:37)
[2019-10-25] MEDS: lurasidone 20 mg Tablet PO (05:37)
[2019-10-25] MEDS: duloxetine 60 mg Capsule 120 MG PO (05:38)
[2019-10-25 06:34] LABS: Basophils % 0.1 %; Hematocrit 39.8 % (37.0-47.0); Hemoglobin 12.8 g/dL (11.5-15.3); Lymphocytes % 15.3 %; Mean Corpuscular HGB Conc 32.2 g/dL (30.0-36.0); Mean Corpuscular Hemoglobin 30.2 pg (28.0-34.0); Mean Corpuscular Volume 93.9 fL (81-99); Mean Platelet Volume 11.1 fL (7.4-10.4); Monocytes # 0.4 10^3/uL (0.2-0.9); Monocytes % 5.8 %; Neutrophils # 5.2 10^3/uL (1.8-7.7); Neutrophils % 78.4 %; Nucleated Red Blood Cells % 0 %; Platelet Count 207 10^3/cmm (130-400); Red Blood Count 4.24 10^6/uL (4.1-5.3); White Blood Count 6.7 10^3/uL (4.0-10.0)
[2019-10-25 06:36] LABS: Glucose Point of Care 158 mg/dL (70-110)
[2019-10-25] MEDS: levothyroxine 88 mcg Tablet PO (08:05)
[2019-10-25] MEDS: apixaban 5 mg Tablet 10 MG PO (08:05)
[2019-10-25] MEDS: gabapentin 300 mg Capsule PO (08:05)
[2019-10-25] MEDS: pantoprazole DR 40 mg Tablet PO (08:05)
[2019-10-25] MEDS: predniSONE 20 mg Tablet 40 MG PO (08:05)
[2019-10-25] MEDS: ARIPiprazole 10 mg Tablet 5 MG PO (08:05)
[2019-10-25 11:08] LABS: Glucose Point of Care 188 mg/dL (70-110)
--- NOTE | 2019-10-25 11:18 | PC.SOCIAL ---
IMM Update Pg 2 of IMM given and explained to patient who voiced understanding. Patient signed and placed in chart. Copy provided to patient.
--- NOTE | 2019-10-25 12:14 | P.DS_ITS ---
Discharge Providers Date of Admission: 10/22/19 15:21 Date of Discharge: 10/25/19 Attending Provider at Admission: Ramses Martin MD Attending Provider at Discharge: Willard Gomes Diagnoses at Discharge Discharge Diagnosis (1) Acute and chronic respiratory failure, unspecified whether with hypoxia or hypercapnia: Status: Acute (2) Bilateral pulmonary embolism: Status: Acute (3) COPD with exacerbation: Status: Acute (4) Hypothyroidism: Status: Acute (5) Insomnia: Status: Acute (6) Chronic pain: Status: Acute (7) Hyperlipidemia: Status: Acute (8) Hypertension: Status: Acute (9) Left ovarian cyst: Status: Acute (10) Smoking addiction: Status: Acute Reason for Visit Reason for Visit: Reason For Visit: RESP DISTRESS Hospital Course Discharge Summary: Please follow-up as needed.54-year-old lady with history of COPD, chronically on 3 L of oxygen by nasal cannula, HLD, HTN, GERD, JAS, spinal stenosis, resolved hepatitis C infection, anxiety and depression was admitted after she presented with shortness of breath and productive cough, as well as chest pain. She is gotten progressively weaker due to shortness of breath. Found to be in acute on chronic respiratory failure with hypoxia and hypercapnia found to be secondary to COPD exacerbation, and on admission noted to have bilateral PE. Past groundglass opacities noted resolved. She was started on BiPAP support, IV steroid, doxycycline, breathing treatments, oxygen support, started on anticoagulation with heparin drip initially but had to be switched to Lovenox due to loss of IV access, subsequently transitioned to Eliquis. She has been less mobile recently with worsened respiratory status, however, otherwise did not have any convincing trigger for PE. Incidentally noted to have left ovarian cyst, 3 cm seen on previous imaging. She has reported some recent weight loss. This was assessed by pelvic ultrasound which showed a 3.58 x 3.83 x 4.24 cm simple cyst. Her respiratory status gradually improved. She was able to wean off BiPAP support, using it only while sleeping. At home she uses CPAP anytime she is asleep. Her echocardiogram showed normal ejection fraction, grade 1 diastolic dysfunction. She has had no chest pain. Her cough has been getting gradually better, with less sputum production. She has been doing well on 3 L of oxygen, and today walked around the unit without any complaints. She feels ready to return home. Of note she seemed to have a number of medications that can contribute to respiratory depression. Please r econcile again and discontinue any that are nonessential. Physical Exam Const: COMMON NORMALS: no apparent distress and oriented x3 HENMT: COMMON NORMALS: oropharynx normal Neck/C-Spine: COMMON NORMALS: no JVD Resp: COMMON NORMALS: normal respiratory effort and clear to auscultation bilaterally AUSCULTATION: clear to auscultation bilaterally and no wheezes Cardio: COMMON NORMALS: no JVD, regular rhythm, S1 normal heart sound, S2 normal heart sound and no murmurs RHYTHM: regular rhythm HEART SOUNDS: S1 normal and S2 normal GI: COMMON NORMALS: normal to inspection, nondistended, normoactive bowel sounds, soft to palpation and non-tender PALPATION: Yes soft Extremity: COMMON NORMALS: no joint enlargement and no pedal edema Neuro: COMMON NORMALS: oriented x3 and moves all extremities Skin: COMMON NORMALS: no rashes or lesions noted GENERAL SKIN EXAM: no rashes or lesions noted Discharge Data Data Completed and Pending: Completed Studies During Hospitalization Category Date Time Status CT angio chest PE protcl [id number] Urge nt Cat Scan 10/22/19 11:50 Completed XR chest 1V [place] ble [id number] Urgent Exams 10/22/19 10:49 Completed CV echo complete* [id number] Urgent Ultrasound 10/22/19 15:03 [place] [id number] Urgent Ultrasound 10/22/19 13:28 Completed US pelvic complet e* [id number] Urgent Ultrasound 10/22/19 15:03 Completed Pending at discharge Category Date Time Status Comprehensive Met abolic Panel Routi ne Lab 10/25/19 10:20 Ordered Magnesium Routine Lab 10/25/19 10:20 Ordered Phosphorus Routin e Lab 10/25/19 10:20 Ordered Labs from last 24 hours 10/25/19 10/25/19 10/25/19 11:01 06:25 05:27 WBC 6.7 RBC 4.24 Hgb 12.8 Hct 39.8 MCV 93.9 MCH 30.2 MCHC 32.2 RDW 12.0 L Plt Count 207 MPV 11.1 H Neut % (Auto) 78.4 Lymph % (Auto) 15.3 [place] % (Auto) 5.8 Eos % (Auto) 0.0 Baso % (Auto) 0.1 Neut # (Auto) 5.2 Lymph # (Auto) 1.0 [place] # (Auto) 0.4 Eos # (Auto) 0.0 Baso # (Auto) 0.0 Nucleated RBC % (a uto) 0 Nucleated RBCs # 0.0 POC Glucose 188 158 10/24/19 10/24/19 21:25 16:08 WBC RBC Hgb Hct MCV MCH MCHC RDW Plt Count MPV Neut % (Auto) Lymph % (Auto) [place] % (Auto) Eos % (Auto) Baso % (Auto) Neut # (Auto) Lymph # (Auto) [place] # (Auto) Eos # (Auto) Baso # (Auto) Nucleated RBC % (a uto) Nucleated RBCs # POC Glucose 182 176 Vitals: Last Vital Signs Temp 97.9 F 10/25/19 11:13 Pulse 84 10/25/19 11:13 Resp 18 10/25/19 11:13 BP 138/76 10/25/19 11:13 Pulse Ox 96 10/25/19 11:13 Discharge Plan Discharge Patient Disposition: Home, Self-Care Condition: Stable Prescriptions: New nicotine 21 mg/24 hr Patch 24 Hour 1 patch transdermal DAILY PRN (Reason: Withdrawal) 30 Days Qty: 30 RF: 0 prednisone 20 mg Tablet 40 mg PO DAILY Qty: 11 RF: 0 Eliquis 5 mg (74 tabs) tablets,dose pack See Rx Instructions .ROUTE .COMPLEX Qty: 74 RF: 0 Continued Lipitor 20 mg Tablet 20 mg PO QPM RF: 0 albuterol sulfate 2.5 mg /3 mL (0.083 %) Solution For Nebulization 2.5 mg INHALATION Q6H PRN (Reason: Shortness Of Breath) RF: 0 omeprazole 40 mg Capsule,Delayed Release(Dr/Ec) 40 mg PO DAILY RF: 0 levothyroxine 88 mcg Tablet 88 mcg PO DAILY RF: 0 trazodone 150 mg Tablet 150 mg PO BEDTIME RF: 0 metformin 1,000 mg Tablet 1,000 mg PO BID RF: 0 glimepiride 4 mg Tablet 2 mg PO DAILY RF: 0 gabapentin 300 mg Capsule 300 mg PO BID RF: 0 Ambien 5 mg Tablet 5 mg PO BEDTIME RF: 0 Ventolin HFA 90 mcg/actuation Hfa Aerosol Inhaler 2 puff INHALATION Q4H PRN (Reason: Shortness Of Breath) RF: 0 lamotrigine 100 mg Tablet 200 mg PO QAM RF: 0 Abilify 5 mg Tablet 5 mg PO DAILY RF: 0 Cymbalta 60 mg Capsule,Delayed Release(Dr/Ec) 120 mg PO QAM RF: 0 ramelteon 8 mg Tablet 8 mg PO BEDTIME RF: 0 Latuda 20 mg Tablet 20 mg PO QAM RF: 0 Discharge Orders: Discharge Order (Routine); Ordered 10/25/19 Ordered By: Willard Gomes Referrals: Tayler Lan APRN [Referring] - 4-7 days Discharge Activity: Oxygen as instructed Discharge Attestations Time Spent in Discharge Care*: greater than 30 min Quality Metrics Clinical Quality Measures During this hospital stay, did patient experience: None Coding Level of Care Code Acute Correctional Counselor for Chg Fwd Diagnoses Acute and chronic respiratory failure, unspecified whether with hypoxia or hypercapnia J96.20 Bilateral pulmonary embolism I26.99 COPD with exacerbation J44.1 Hypothyroidism E03.9 Insomnia G47.00 Chronic pain G89.29 Hyperlipidemia E78.5 Hypertension I10 Left ovarian cyst N83.202 Smoking addiction F17.200
== END 2019-10-25 14:10 | disposition home or self-care (01) | DRG 175 ==
LOC: ER 10:14 → ICU 15:22 → MEDSURG 10-24 13:50
PROVIDERS: Internal Medicine; Admitting Provider Family Medicine; Emergency Provider Family Medicine; Visit Provider Internal Medicine
DX: I26.99 Other pulmonary embolism without acute cor pulmonale (principal); J96.21 Acute and chronic respiratory failure with hypoxia; J96.22 Acute and chronic respiratory failure with hypercapnia; Z99.81 Dependence on supplemental oxygen; I10 Essential (primary) hypertension; E11.9 Type 2 diabetes mellitus without complications; Z86.19 Personal history of other infectious and parasitic diseases; G47.33 Obstructive sleep apnea (adult) (pediatric); G89.29 Other chronic pain; G47.00 Insomnia, unspecified; E03.9 Hypothyroidism, unspecified; K21.9 Gastro-esophageal reflux disease without esophagitis; F41.8 Other specified anxiety disorders; Z79.891 Long term (current) use of opiate analgesic; N83.202 Unspecified ovarian cyst, left side; Z78.0 Asymptomatic menopausal state; F12.90 Cannabis use, unspecified, uncomplicated
CPT/HCPCS: 36415; 36416; 36600; 71045; 71275; 76856; 80053; 82803; 82962; 83036; 83735; 83880; 84100; 84132; 84443; 84484; 85025; 85049; 85730; 93005; 93306; 93970; 94640; 94660; 94664; 96372; 96374; 97161; 97165; 97530; 99282; J1644; J1650; J1815; J2060; J2920; J2930; J3490; J7030; J7050; J7512; Q9967

== ENCOUNTER 2019-10-26 10:17 | Inpatient (IN) | payer MEDICARE, MEDICAID, SELFPAY ==
[2019-10-26] VITALS (19 sets, daily range): BP systolic 113–164; BP diastolic 68–106; PULSE 81–101; RESP 18–36; TEMP 37.3; O2SAT 90–98; BMI 37.9; BMI 36.8
--- NOTE | 2019-10-26 | XR_ITS ---
WS: [id number] Portable AP upright chest, 10/26/2019 Clinical Data: DYSPNEA Comparison: Portable chest, 10/22/2019. Findings: No nodules, masses or effusions are seen. The heart is normal. The pulmonary vascularity is not remarkable. No pneumonia or pneumothorax is present. Monitor leads on the chest wall. XR/XR chest 1V portable [id number] Impression: Negative portable chest.
--- NOTE | 2019-10-26 10:20 | ED_ITS ---
Entered by Angeles Taylor, acting as scribe for HPI - SOB/Dyspnea General: Chief Complaint: Shortness of Breath/Dyspnea Stated Complaint: SOB Time Seen by Provider: 10/26/19 10:17 History of Present Illness: HPI Narrative: 54 yo female presents with shortness of breath. Pt states that she uses o2 at home at night. Pt states that she will use 3 liters. Pt states that she was discharged from the hospital yesterday, she didn't have time to pick out hand her antibiotics or her steroids, her sister picked them up today. Pt states that she did something breathing treatments and she doesn't feel like it helped. MD elicited complaint: shortness of breath Associated symptoms: Reports nausea; Deny abdominal pain, chest pain, dizziness, extremity pain, fever(s), orthopnea, palpitations, polydipsia, polyuria, syncope or vomiting Review of Systems Const: Reports: body aches, fatigue and malaise; Denies: fever, chills or night sweats Eyes: Denies: change in vision or blurry vision ENMT: Denies: throat pain, oral sores/lesions, dental pain, nasal discharge or nasal congestion Card: Reports: shortness of breath on exertion; Denies: chest pain, palpitations, irregular heart rhythm, edema, syncope, shortness of breath when lying down or leg pain with exertion Resp: Reports: shortness of breath and non-productive cough; Denies: productive cough or wheezing GI: Reports: nausea; Denies: abdominal pain, vomiting, vomiting blood, coffee grounds in vomit, difficulty swallowing, heartburn/indigestion, diarrhea, constipation, cramping, blood in stool or black tarry stool : Denies: flank pain, painful urination, urinary frequency, urinary urgency, urinary incontinence or blood in urine Musc: Reports: back pain; Denies: neck pain, extremity pain, extremity swelling, joint pain or joint swelling Skin/Breast: Denies: rash, itching or redness Neuro: Denies: headache, numbness in extremities, weakness in extremities, changes in sensation, lack of coordination, difficulty walking, frequent falls, dizziness, vertigo or confusion Psych: Reports: anxiety Endo: Denies: excessive urination, excessive thirst, tired all the time or cold intolerance Memo/Lymph: Denies: easy bruising, easy bleeding, petechiae, enlarged lymph nodes or tender lymph nodes PFSH ED PFSH: Statuses (acute, chronic, etc) shown below reflect problem list status as previously entered and may not be historically accurate Medical History (Updated 10/26/19 @ 19:43 by Jairon Smith MD) Acute on chronic respiratory failure with hypoxemia (Acute) Anxiety and depression (Acute) Chronic pain (Acute) COPD (chronic obstructive pulmonary disease) (Inactive) GERD (gastroesophageal reflux disease) (Acute) Hepatitis C virus infection cured after antiviral drug therapy (Acute) Hyperlipemia (Acute) Hyperlipidemia (Acute) Hypertension (Acute) Hypertension (Acute) Insomnia (Acute) Insomnia (Acute) Obstructive sleep apnea (Acute) Ovarian cyst (Acute) Pulmonary embolism (Acute) Spinal stenosis (Acute) Surgical History (Updated 10/26/19 @ 11:18 by Kirstin Vanegas) H/O section (Acute) H/O section (Acute) Status post left foot surgery (Acute) Family History (Updated 10/22/19 @ 16:14 by Ramses Martin MD) Mother Cancer Breast cancer Social History (Updated 10/22/19 @ 16:14 by Ramses Martin MD) Smoking and tobacco status: current every day smoker Alcohol intake: never Household members: children Physical Exam Const: COMMON NORMALS: average body habitus, oriented x3 and alert GENERAL APPEARANCE: cooperative, comfortable and well developed NUTRITIONAL APPEARANCE: obese ORIENTATION/CONSCIOUSNESS: Yes awake, Yes oriented to person and Yes oriented to place HENMT: COMMON NORMALS: normocephalic, head/scalp atraumatic, EAC's normal, TM's normal bilaterally, external nose normal, moist oral mucous membranes and oropharynx normal HEAD & SCALP: normocephalic and atraumatic NOSE: external nose normal EXTERNAL AUDITORY CANAL: EAC's normal TYMPANIC MEMBRANE: TM's normal bilaterally MOUTH: oral and palatal mucosa normal, lip normal and tongue normal THROAT: posterior oropharynx normal and tonsils normal Eye: COMMON NORMALS: PERRL, EOMs intact bilaterally, conjunctivae normal and no scleral icterus CONJUNCTIVA: Yes conjunctivae normal PUPIL: Yes PERRL Neck/C-Spine: COMMON NORMALS: full ROM, no lymphadenopathy, supple, no meningeal signs and thyroid normal THYROID: thyroid normal and asymmetrical Lymph: LYMPHATIC: no lymphadenopathy noted Resp: AUSCULTATION: rhonchi throughout, wheezes throughout and diminished lung sounds Cardio: COMMON NORMALS: regular rhythm RATE: tachycardic RHYTHM: regular rhythm HEART SOUNDS: no murmurs GI: COMMON NORMALS: normal to inspection, nondistended, normoactive bowel sounds, soft to palpation and no hepatosplenomegaly PALPATION: Yes soft and Yes no hepatosplenomegaly : COMMON NORMALS: Yes no CVA tenderness BLADDER/KIDNEY EXAM: Yes no CVA tenderness Back/Pelvis: COMMON NORMALS: no CVA tenderness LUMBAR SPINE/LOWER BACK: Yes normal to inspection Extremity: COMMON NORMALS: no calf tenderness NARRATIVE EXTREMITY EXAM: mild non-pitting LE edema Neuro: COMMON NORMALS: oriented x3 SENSORIUM/ORIENTATION: Yes alert, Yes oriented to person and Yes oriented to place MENINGEAL SIGNS: Yes no meningeal signs Psych: OTHER: anxiety Skin: COMMON NORMALS: no rashes or lesions noted and skin turgor normal GENERAL SKIN EXAM: no rashes or lesions noted and turgor normal Course ED course: Patient extremely anxious despite multiple nebs still has very poor air exchange. She was discharged home did not get her steroids or antibiotics. Seems to have rapidly deteriorated. Ultimately did decide to repeat her CT a scan to ensure that she did not extend her previously known PEs that are actually decreased in size. go ahead and admit her for COPD re-exacerbation. Discussed with Dr. Monroy he will admit the patient is seen and evaluated the patient and written orders. Vital Signs: Vital signs: Vital Signs Temperature 99.1 F 10/26/19 10:18 Pulse Rate 89 10/26/19 18:36 Respiratory Rate 36 H 10/26/19 18:24 Blood Pressure 144/100 10/26/19 16:33 Pulse Oximetry 94 10/26/19 18:36 MDM - SOB/Dyspnea Differential Diagnosis: Shortness of Breath Differential Diagnosis: Likely acute exacerbation of chronic obstructive airways disease Lab Data: Labs: Lab Results 10/26/19 10/26/19 10/26/19 Range/Units 10:46 11:45 11:45 WBC 10.9 H (4.0-10.0) 10^3/ uL RBC 4.66 (4.1-5.3) 10^6/u L Hgb 14.3 (11.5-15.3) g/dL Hct 43.2 (37.0-47.0) % MCV 92.7 (81-99) fL MCH 30.7 (28.0-34.0) pg MCHC 33.1 (30.0-36.0) g/dL RDW 12.1 (12.1-15.1) % Plt Count 204 (130-400) 10^3/c mm MPV 10.4 (7.4-10.4) fL Neut % (Auto) 77.5 % Lymph % (Auto) 13.3 % [place] % (Auto) 8.4 % Eos % (Auto) 0.2 % Baso % (Auto) 0.3 % Neut # (Auto) 8.5 H (1.8-7.7) 10^3/u L Lymph # (Auto) 1.5 (0.8-4.8) 10^3/u L [place] # (Auto) 0.9 (0.2-0.9) 10^3/u L Eos # (Auto) 0.0 (0.0-0.8) 10^3/u L Baso # (Auto) 0.0 (0.0-0.1) 10^3/u L Nucleated RBC % (a uto) 0 % Nucleated RBCs # 0.0 /100WBC Specimen Type Arterial Sample Site Radial, left ABG pH 7.38 (7.35-7.45) ABG pCO2 55.6 H (35-45) mmHg ABG pO2 45.0 L (80.0-100.0) mmH g ABG HCO3 32.7 H (22-26) mmol/L ABG Base Excess 5.8 H (-2.0-2.0) mmol/ L Glenn Test Pos Hematocrit 45.3 (37-47) % Hgb O2 Saturation (95-100) % Ionized Calcium (1.1-1.4) mmol/L O2 Liters/Min 4.0 % FiO2 36.0 % Guyline Operator ID ed Sodium 132 L (136-145) mmol/L Potassium 3.4 L (3.5-5.1) mmol/L Chloride 91 L (98-107) mmol/L Carbon Dioxide 29 (22-29) mmol/L Anion Gap 15.4 (5-19) BUN 7 (6-20) mg/dL Creatinine 0.5 (0.5-0.9) mg/dL GFR Calculation 127.6 (90-130) mL/min Glucose 154 H (74-109) mg/dL Calcium 9.6 (8.6-10.0) mg/Dl Total Bilirubin 0.6 (0.15-1.2) mg/dL AST 24 (0-32) U/L ALT 47 H (0-33) U/L Alkaline Phosphata se 105 (35-105) IU/L Troponin I 6 Hour (0-10) ng/L Troponin T Baselin e (0-10) ng/mL Troponin T 120 Min [place] (0-10) ng/mL Delta Troponin T (0-10) ABS# Total Protein 6.9 (6.6-8.7) g/dL Albumin 4.2 (3.5-5.2) g/dL Globulin 2.7 (1.3-4.6) g/dL 10/26/19 10/26/19 10/26/19 Range/Units 11:45 13:39 14:08 WBC (4.0-10.0) 10^3/ uL RBC (4.1-5.3) 10^6/u L Hgb (11.5-15.3) g/dL Hct (37.0-47.0) % MCV (81-99) fL MCH (28.0-34.0) pg MCHC (30.0-36.0) g/dL RDW (12.1-15.1) % Plt Count (130-400) 10^3/c mm MPV (7.4-10.4) fL Neut % (Auto) % Lymph % (Auto) % [place] % (Auto) % Eos % (Auto) % Baso % (Auto) % Neut # (Auto) (1.8-7.7) 10^3/u L Lymph # (Auto) (0.8-4.8) 10^3/u L [place] # (Auto) (0.2-0.9) 10^3/u L Eos # (Auto) (0.0-0.8) 10^3/u L Baso # (Auto) (0.0-0.1) 10^3/u L Nucleated RBC % (a uto) % Nucleated RBCs # /100WBC Specimen Type Arterial Sample Site Radial, left ABG pH 7.37 (7.35-7.45) ABG pCO2 57.2 H (35-45) mmHg ABG pO2 61.6 L (80.0-100.0) mmH g ABG HCO3 33.3 H (22-26) mmol/L ABG Base Excess 6.2 H (-2.0-2.0) mmol/ L Glenn Test Pos Hematocrit 44.9 (37-47) % Hgb O2 Saturation 90.2 L (95-100) % Ionized Calcium 1.2 (1.1-1.4) mmol/L O2 Liters/Min 6.0 % FiO2 44.0 % Guyline Operator ID ed Sodium 138.0 (136-145) mmol/L Potassium 3.4 L (3.5-5.1) mmol/L Chloride (98-107) mmol/L Carbon Dioxide (22-29) mmol/L Anion Gap (5-19) BUN (6-20) mg/dL Creatinine (0.5-0.9) mg/dL GFR Calculation (90-130) mL/min Glucose 165.0 H (74-109) mg/dL Calcium (8.6-10.0) mg/Dl Total Bilirubin (0.15-1.2) mg/dL AST (0-32) U/L ALT (0-33) U/L Alkaline Phosphata se (35-105) IU/L Troponin I 6 Hour (0-10) ng/L Troponin T Baselin e 11 H (0-10) ng/mL Troponin T 120 Min [place] 8.47 (0-10) ng/mL Delta Troponin T -2.53 L (0-10) ABS# Total Protein (6.6-8.7) g/dL Albumin (3.5-5.2) g/dL Globulin (1.3-4.6) g/dL 10/26/19 Range/Units 18:00 WBC (4.0-10.0) 10^3/ uL RBC (4.1-5.3) 10^6/u L Hgb (11.5-15.3) g/dL Hct (37.0-47.0) % MCV (81-99) fL MCH (28.0-34.0) pg MCHC (30.0-36.0) g/dL RDW (12.1-15.1) % Plt Count (130-400) 10^3/c mm MPV (7.4-10.4) fL Neut % (Auto) % Lymph % (Auto) % [place] % (Auto) % Eos % (Auto) % Baso % (Auto) % Neut # (Auto) (1.8-7.7) 10^3/u L Lymph # (Auto) (0.8-4.8) 10^3/u L [place] # (Auto) (0.2-0.9) 10^3/u L Eos # (Auto) (0.0-0.8) 10^3/u L Baso # (Auto) (0.0-0.1) 10^3/u L Nucleated RBC % (a uto) % Nucleated RBCs # /100WBC Specimen Type Sample Site ABG pH (7.35-7.45) ABG pCO2 (35-45) mmHg ABG pO2 (80.0-100.0) mmH g ABG HCO3 (22-26) mmol/L ABG Base Excess (-2.0-2.0) mmol/ L Glenn Test Hematocrit (37-47) % Hgb O2 Saturation (95-100) % Ionized Calcium (1.1-1.4) mmol/L O2 Liters/Min % FiO2 % Guyline Operator ID Sodium (136-145) mmol/L Potassium (3.5-5.1) mmol/L Chloride (98-107) mmol/L Carbon Dioxide (22-29) mmol/L Anion Gap (5-19) BUN (6-20) mg/dL Creatinine (0.5-0.9) mg/dL GFR Calculation (90-130) mL/min Glucose (74-109) mg/dL Calcium (8.6-10.0) mg/Dl Total Bilirubin (0.15-1.2) mg/dL AST (0-32) U/L ALT (0-33) U/L Alkaline Phosphata se (35-105) IU/L Troponin I 6 Hour 10.78 H (0-10) ng/L Troponin T Baselin e (0-10) ng/mL Troponin T 120 Min [place] (0-10) ng/mL Delta Troponin T (0-10) ABS# Total Protein (6.6-8.7) g/dL Albumin (3.5-5.2) g/dL Globulin (1.3-4.6) g/dL Imaging Data^: CXR: Radiologist's impression: Patient: Tomeka Marshall MR#: [id number] : 1965 Acct:[id number] Age/Sex: 54 / F ADM Date: 10/26/19 Loc: ER Attending Dr: Ordering Physician: Jason Beaulieu DO Date of Service: 10/26/19 Procedure(s): XR chest 1V portable [id number] Accession Number(s): [id number] Report Number: [id number] WS: [id number] Portable AP upright chest, 10/26/2019 Clinical Data: DYSPNEA Comparison: Portable chest, 10/22/2019. Findings: No nodules, masses or effusions are seen. The heart is normal. The pulmonary vascularity is not remarkable. No pneumonia or pneumothorax is present. Monitor leads on the chest wall. XR/XR chest 1V portable [id number] Impression: Negative portable chest. Dictated By: Nanette Jones MD Signed By: Nanette Jones MD Signed Date/Time:10/26/191316 DD/ 15 Discharge Plan Discharge Patient Disposition: Home, Self-Care Clinical Impression: COPD with exacerbation Condition: Stable Prescriptions: No Action atorvastatin [Lipitor] 20 mg Tablet 20 mg PO QPM RF: 0 albuterol sulfate 2.5 mg /3 mL (0.083 %) Solution For Nebulization 2.5 mg INHALATION Q6H PRN (Reason: Shortness Of Breath) RF: 0 omeprazole 40 mg Capsule,Delayed Release(Dr/Ec) 40 mg PO DAILY RF: 0 levothyroxine 88 mcg Tablet 88 mcg PO DAILY RF: 0 trazodone 150 mg Tablet 150 mg PO BEDTIME RF: 0 metformin 1,000 mg Tablet 1,000 mg PO BID RF: 0 glimepiride 4 mg Tablet 2 mg PO DAILY RF: 0 gabapentin 300 mg Capsule 300 mg PO BID RF: 0 zolpidem [Ambien] 5 mg Tablet 5 mg PO BEDTIME RF: 0 albuterol sulfate [Ventolin HFA] 90 mcg/actuation Hfa Aerosol Inhaler 2 puff INHALATION Q4H PRN (Reason: Shortness Of Breath) RF: 0 lamotrigine 100 mg Tablet 200 mg PO QAM RF: 0 aripiprazole [Abilify] 5 mg Tablet 5 mg PO DAILY RF: 0 duloxetine [Cymbalta] 60 mg Capsule,Delayed Release(Dr/Ec) 120 mg PO QAM RF: 0 ramelteon 8 mg Tablet 8 mg PO BEDTIME RF: 0 Latuda 20 mg Tablet 20 mg PO QAM RF: 0 Eliquis 5 mg (74 tabs) tablets,dose pack See Rx Instructions .ROUTE .COMPLEX Qty: 74 RF: 0 prednisone 20 mg Tablet 40 mg PO DAILY Qty: 11 RF: 0 nicotine 21 mg/24 hr Patch 24 Hour 1 patch transdermal DAILY PRN (Reason: Withdrawal) 30 Days Qty: 30 RF: 0 Coding Level of Care Code ED Epic [employer] for Chg Fwd Exam Problem Focused The documentation recorded by the Brandon loyola Kialy, accurately reflects the service I personally performed and the decisions made by Christofer mcgowan Curtis L, DO Oct 26, 2019 10:17
[2019-10-26] MEDS: ipratropium-albuterol 3 mL Neb INHALATION ×2 (10:40→17:24)
--- NOTE | 2019-10-26 10:40 | PC.NURSE ---
Blood collected and sent to lab with IV start.
[2019-10-26 10:56] LABS: ABG PCO2 55.6 mmHg (35-45); ABG PH Result 7.38 (7.35-7.45); Arterial Blood Gas Hematocrit 45.3 % (37-47); Base Excess ABG 5.8 mmol/L (-2.0-2.0); Blood Gas Allen Test Pos; Blood Gas Sample Site Radial, left; Blood Gas Sample Type Arterial; HCO3 ABG 32.7 mmol/L (22-26)
--- NOTE | 2019-10-26 11:33 | ECG_ITS ---
Measurements Intervals [place] Rate: 94 P: 65 WA: 151 QRS: 82 QRSD: 118 T: 60 QT: 351 QTc: 439 SINUS RHYTHM MODERATE INTRAVENTRICULAR CONDUCTION DELAY [110+ ms QRS DURATION] Compared to ECG 10/24/2019 00:56:36 Sinus bradycardia no longer present Electronically Signed On 10-26-2019 17:50:48 EDUCATION ANALYST by Eliza Paul M.D. [email or web address]
[2019-10-26 11:52] LABS: Basophils % 0.3 %; Eosinophils % 0.2 %; Hematocrit 43.2 % (37.0-47.0); Hemoglobin 14.3 g/dL (11.5-15.3); Lymphocytes # 1.5 10^3/uL (0.8-4.8); Lymphocytes % 13.3 %; Mean Corpuscular HGB Conc 33.1 g/dL (30.0-36.0); Mean Corpuscular Hemoglobin 30.7 pg (28.0-34.0); Mean Corpuscular Volume 92.7 fL (81-99); Mean Platelet Volume 10.4 fL (7.4-10.4); Monocytes # 0.9 10^3/uL (0.2-0.9); Monocytes % 8.4 %; Neutrophils # 8.5 10^3/uL (1.8-7.7); Neutrophils % 77.5 %; Nucleated Red Blood Cells % 0 %; Platelet Count 204 10^3/cmm (130-400); Red Blood Count 4.66 10^6/uL (4.1-5.3); Red Cell Distribution Width 12.1 % (12.1-15.1); White Blood Count 10.9 10^3/uL (4.0-10.0)
[2019-10-26 12:07] LABS: Troponin(5th) Baseline 11 ng/mL (0-10)
[2019-10-26 12:13] LABS: Alanine Aminotransferase 47 U/L (0-33); Albumin Level 4.2 g/dL (3.5-5.2); Alkaline Phosphatase 105 IU/L (35-105); Anion Gap 15.4 (5-19); Aspartate Amino Transferase 24 U/L (0-32); Blood Urea Nitrogen 7 mg/dL (6-20); Calcium 9.6 mg/Dl (8.6-10.0); Carbon Dioxide 29 mmol/L (22-29); Chloride 91 mmol/L (98-107); Globulin 2.7 g/dL (1.3-4.6); Glomerular Filtration Rate 127.6 mL/min (90-130); Glucose 154 mg/dL (74-109); Potassium 3.4 mmol/L (3.5-5.1); Sodium 132 mmol/L (136-145); Total Bilirubin 0.6 mg/dL (0.15-1.2); Total Protein 6.9 g/dL (6.6-8.7)
--- NOTE | 2019-10-26 13:33 | ECG_ITS ---
Measurements Intervals [place] Rate: 82 P: 71 NV: 159 QRS: 80 QRSD: 102 T: 73 QT: 365 QTc: 428 SINUS RHYTHM Compared to ECG 10/24/2019 00:56:36 Sinus bradycardia no longer present Intraventricular conduction delay no longer present Electronically Signed On 10-26-2019 17:52:03 PARKS AND RECREATION WORKER by Eliza Paul M.D. [email or web address] f
--- NOTE | 2019-10-26 13:49 | CT_ITS ---
WS: [id number] CTA scan of the chest with IV contrast. Additional two-dimensional coronal and sagittal reconstructio n and MIP images was performed. Clinical Data: dyspnea Comparison: None. DLP: 2238.[address] scans at [facility] use at least one of these dose optimization techniques: automat ed exposure control; mA and/or kV adjustment per patient size (includes targeted exams where dose is matched to clinical indication); or iterative reconstruction. Findings: The central pulmonary arteries and peripheral pulmonary arteries fill normally with no evidence of in termittent luminal filling defects. No pulmonary embolic disease is noted. The lower lobe arteries do not show the filling defects which were present for days ago. No nodules, masses or effusions are seen. The heart size is normal with no pericardial effusion. The pulmonary arterial system and thoracic aorta demonstrate no abnormalities or dilatations. There is no axillary or significant mediastinal adenopathy. The thyroid gland shows normal enhancement. The trac hea bifurcates into the bronchi. The upper abdomen shows no abnormalities. The visualized liver, spleen, pancreas, adrenal glands and superior poles of the kidneys are not remarkable. The bones of the thoracic and upper lumbar spine are not remarkable. CT/CT angio chest PE protcl [id number] Impression: 1. Small intraluminal filling defects noted 4 days ago not seen in the lower lo bes on this current study. 2. No acute cardiopulmonary disease is seen.
--- NOTE | 2019-10-26 14:11 | PC.NURSE ---
Patient calling out for help. This RN rounded on patient. Patient states I am struggling and want a bipap. Physician notified. While at patients bedside patient took her O2 off and her oxygen dropped to 86%. Patients oxygen increased to 6L.
[2019-10-26 14:19] LABS: Troponin 5 2HR 8.47 ng/mL (0-10)
[2019-10-26 14:19] LABS: ABG PCO2 57.2 mmHg (35-45); ABG PH Result 7.37 (7.35-7.45); Arterial Blood Gas Hematocrit 44.9 % (37-47); Base Excess ABG 6.2 mmol/L (-2.0-2.0); Blood Gas Allen Test Pos; Blood Gas Sample Site Radial, left; Blood Gas Sample Type Arterial; HCO3 ABG 33.3 mmol/L (22-26); HGB O2 Sat 90.2 % (95-100); Ionized Calcium Level - ABG 1.2 mmol/L (1.1-1.4); PO2 ABG 61.6 mmHg (80.0-100.0); Potassium Level - ABG 3.4 mmol/L (3.5-5.0)
[2019-10-26 14:20] LABS: Troponin 5 2HR Delta -2.53 ABS# (0-10)
[2019-10-26] MEDS: iohexol 350 mg/mL 100 mL Btl IV (15:15)
[2019-10-26] MEDS: LORazepam 2 mg/mL INJ 1 mL 1 MG IVP (16:46)
--- NOTE | 2019-10-26 17:17 | P.HP_ITS ---
Providers/Chief Complaint Admitting Physician: Jairon Smith MD Chief Complaint: SOB History of Present Illness Tomeka Marshall is a 54 year old female past medical history of COPD, on 3 L nasal cannula, hypertension, type 2 diabetes mellitus, hepatitis C status post treatment, obstructive sleep apnea, chronic pain, insomnia, hypothyroidism, GERD, anxiety depression, spinal stenosis, recently diagnosed PE 4 days ago 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 Patient was discharged yesterday after being in hospital for acute on chronic respiratory failure due to new PE and COPD exacerbation. Patient was discharged on burst steroids which she has not been able to refill. Patient states she was feeling fine last night but this morning when she woke up she was feeling extremely difficult to breathe so presented to the ER. She states her medications were not ready in the pharmacy so she did not get any chance to get them filled yesterday and today she came to the ER. She denies of having any hemoptysis, dizziness, palpitations, nausea or vomiting. She complains of shortness of breath which has been getting worse. She denies any new sick contacts, fever, more cough than usual, denies any expectoration. On evaluation in ER, she was on bipap and has received 3 rounds of nebulizations, 1 mg ativan and c/o feeling tired, saturating 94% on 40% bipap 20/12 Review of Systems Const: Reports: daytime sleepiness and snoring; Denies: fever, chills, body aches, change in appetite, malaise, night sweats, diaphoresis or change in sleep pattern Eyes: Denies: change in vision, blurry vision, photophobia, eye discomfort or eye discharge ENMT: Denies: throat pain, enlarged tonsils, hoarseness, mouth pain, oral sores/lesions, dry mouth, tinnitus, nasal congestion or post nasal drip Card: Reports: shortness of breath on exertion; Denies: chest pain, palpitations, irregular heart rhythm, edema, swelling of feet/ankles, lightheadedness, syncope, pre-syncope, shortness of breath when lying down, leg pain with exertion or bluish discoloration of hands/feet Resp: Reports: shortness of breath, productive cough and wheezing; Denies: non-productive cough, stridor, pain on inspiration, change in phlegm color, coughing up blood or chest congestion GI: Denies: abdominal pain, nausea, vomiting, vomiting blood, coffee grounds in vomit, difficulty swallowing, heartburn/indigestion, diarrhea, constipation, bloating, cramping, change in bowel habits, painful bowel movements, blood in stool or black tarry stool : Denies: flank pain, painful urination, urinary frequency, urinary urgency, urinary hesitancy, nighttime urination or blood in urine Musc: Denies: neck pain, back pain, extremity pain, joint pain, joint swelling, redness, joint stiffness or limited range of motion Neuro: Denies: headache, numbness in extremities, weakness in extremities, changes in sensation, lack of coordination, difficulty walking, frequent falls, dizziness, vertigo, confusion, slurred speech, difficulty communicating thoughts or seizure-like activity Psych: Denies: anxiety, depression, mood swings, panic attacks, hopelessness or irritability Endo: Denies: excessive urination, excessive thirst, tired all the time, cold intolerance, excessive sweating, flushing or heat intolerance Memo/Lymph: Denies: easy bruising or easy bleeding All/Imm: Denies: tongue swelling, facial swelling or acute wheezing Medications/Allergies Allergies Allergy/AdvReac Type Severity Reaction Status Date / Time levofloxacin [From Levaquin] Allergy Unknown Verified 10/22/19 09:33 Sulfa (Sulfonamide Allergy Unknown Verified 10/22/19 09:33 Antibiotics) PFSH Acute PFSH: Statuses (acute, chronic, etc) shown below reflect problem list status as previously entered and may not be historically accurate Medical History (Updated 10/26/19 @ 21:23 by Jairon Smith MD) Acute on chronic respiratory failure with hypoxemia (Acute) Anxiety and depression (Acute) Chronic pain (Acute) COPD (chronic obstructive pulmonary disease) (Inactive) GERD (gastroesophageal reflux disease) (Acute) Hepatitis C virus infection cured after antiviral drug therapy (Acute) Hyperlipemia (Acute) Hypertension (Acute) Insomnia (Acute) Obstructive sleep apnea (Acute) Ovarian cyst (Acute) Pulmonary embolism (Acute) Spinal stenosis (Acute) Surgical History (Updated 10/26/19 @ 21:23 by Jairon Smith MD) H/O section (Acute) Status post left foot surgery (Acute) Family History (Updated 10/22/19 @ 16:14 by Ramses Martin MD) Mother Cancer Breast cancer Social History (Updated 10/26/19 @ 21:24 by Jairon Smith MD) Smoking and tobacco status: current every day smoker Alcohol intake: never Substance/Drug Use: current Substance/Drug use frequency: daily Substance/Drug use type: Marijuana Last substance use date: 10/26/19 Household members: children Vitals/I&O/Wt Last Vital Signs Temp 99.1 F 10/26/19 10:18 Pulse 98 10/26/19 16:33 Resp 21 H 10/26/19 16:33 BP 144/100 10/26/19 16:33 Pulse Ox 95 10/26/19 16:33 Weight last 48 hrs Weight 106.594 kg Physical Exam Const: COMMON NORMALS: oriented x3 and alert GENERAL APPEARANCE: cooperative, in distress, lethargic and well hydrated; not comfortable ORIENTATION/CONSCIOUSNESS: Yes awake, Yes oriented to person, Yes oriented to place and Yes oriented to time HENMT: COMMON NORMALS: normocephalic, head/scalp atraumatic and moist oral mucous membranes Eye: COMMON NORMALS: PERRL and EOMs intact bilaterally Chest: COMMONS NORMALS: inspection of chest normal CHEST: Yes symmetrical chest wall rise Resp: COMMON NORMALS: normal respiratory effort EFFORT & INSPECTION: Yes tachypneic, Yes respiratory distress, No retractions, Yes uses accessory muscles, No paradoxical thoraco-abdominal movements and Yes audible wheezes AUSCULTATION: rales, rhonchi, wheezes and diminished lung sounds Cardio: COMMON NORMALS: regular rate, regular rhythm, S1 normal heart sound and S2 normal heart sound JUGULAR VENOUS DISTENTION: no JVD HEART SOUNDS: no gallops and no murmurs GI: COMMON NORMALS: normal to inspection, nondistended, normoactive bowel sounds, soft to palpation, non-tender and no hepatosplenomegaly Extremity: COMMON NORMALS: normal to inspection and full ROM Neuro: COMMON NORMALS: oriented x3, CN's II-XII intact bilaterally, moves all extremities and no focal motor deficits Sepsis: Is patient septic: No Focused sepsis exam performed: Yes Data Imaging^: CTA Chest: Radiologist's impression: CT Scan Report Signed Patient: Tomeka Marshall [facility]#: [id number] : 1965Acct:[id number] Age/Sex: 54 / FADM Date: 10/26/19 Loc: ER Attending Dr: Ordering Physician: Jason Beaulieu DO Date of Service: 10/26/19 Procedure(s): CT angio chest PE protcl [id number] Accession Number(s): [id number] Report Number: [id number] WS: [id number] CTA scan of the chest with IV contrast. Additional two-dimensional coronal and sagittal reconstruction and MIP images was performed. Clinical Data: dyspnea Comparison: None. DLP: 2238.[address] scans at [facility] use at least one of these dose optimization techniques: automated exposure control; mA and/or kV adjustment per patient size (includes targeted exams where dose is matched to clinical indication); or iterative reconstruction. Findings: The central pulmonary arteries and peripheral pulmonary arteries fill normally with no evidence of intermittent luminal filling defects. No pulmonary embolic disease is noted. The lower lobe arteries do not show the filling defects which were present for days ago. No nodules, masses or effusions are seen. The heart size is normal with no pericardial effusion. The pulmonary arterial system and thoracic aorta demonstrate no abnormalities or dilatations. There is no axillary or significant mediastinal adenopathy. The thyroid gland shows normal enhancement. The trachea bifurcates into the bronchi. The upper abdomen shows no abnormalities. The visualized liver, spleen, pancreas, adrenal glands and superior poles of the kidneys are not remarkable. The bones of the thoracic and upper lumbar spine are not remarkable. CT/CT angio chest PE protcl [id number] Impression: 1. Small intraluminal filling defects noted 4 days ago not seen in the lower lobes on this current study. 2. No acute cardiopulmonary disease is seen. A&P Assessment and plan (1) Acute on chronic respiratory failure with hypoxemia: Status: Acute Code(s): J96.21 - Acute and chronic respiratory failure with hypoxia (2) COPD with exacerbation: Status: Acute Code(s): J44.1 - Chronic obstructive pulmonary disease with (acute) exacerbation (3) Obstructive sleep apnea: Status: Acute Code(s): G47.33 - Obstructive sleep apnea (adult) (pediatric) (4) Bilateral pulmonary embolism: Status: Acute Code(s): I26.99 - Other pulmonary embolism without acute cor pulmonale (5) Smoking addiction: Status: Acute Code(s): F17.200 - Nicotine dependence, unspecified, uncomplicated Additional A&P Information Additional A&P Information: Acute on chronic respiratory failure: 2/2 Severe COPD exacerbation PE resolving in the CTA done today. Pt missing her prescribed dose of prednisone Stat solumedrol 125 mg f/b 60 mg Q6h Douneb stat f/b Q4h budesonide 0.5 mg BID Stat MgSO4 2gm IV Flu swab, MRSA swab, Procal- suspicion of PNA low. No infiltrate on CTA, No white count Bipap ventilation to titrate keeping saturation more than 90%. Discussed with patient that if not able to maintain saturation and if pt getting tired will n eed to intubate. Family and patinet agree with the same but will try to avoid as much as can as it will be difficult extubation given severity of COPD. Recent ECHO- Normal EF with grade 1 DD ABG in 2 hrs. B/l PE: Resolving on CTA cw eliquis 10 mg BID to finish 7 days f/b 5 mg BID Hypothyroidism: c/w home dose of levothyroxine HTN: BP well controlled. Not on any meds at home. Will continue to monitor T2DM: Hold OHAs ISS @ Mod dose protocol Check ACT Q6h as pt NPO c/w other home meds for depression and anxiety to avoid withdrawal. She is on many medications which can cause resp depression but to avoid withdrawal will decrease dose of cymbalata, Stop latuda and gabapentin and make ambien QHS PRN. NPO for now in view of severe COPD exacerbation for tonight FC Eliquis for DVT PPx as well Attestations Medical Necessity Statement*: needs admission for more than 48 hrs for acute hypoxic resp failure Coding Level of Care Code Acute Fast Food Crew Member for g Fwd Exam Problem Focused Diagnoses Acute on chronic respiratory failure with hypoxemia J96.21 COPD with exacerbation J44.1 Obstructive sleep apnea G47.33 Bilateral pulmonary embolism I26.99 Smoking addiction F17.200
--- NOTE | 2019-10-26 17:29 | PC.RESP ---
bipap on stand by
[2019-10-26] MEDS: magnesium sulfate premix 2 GM/50 ML PIGGYBACK IV (17:32)
--- NOTE | 2019-10-26 17:33 | ECG_ITS ---
Measurements Intervals [place] Rate: 90 P: 80 MA: 151 QRS: 89 QRSD: 112 T: 78 QT: 355 QTc: 436 SINUS RHYTHM MODERATE INTRAVENTRICULAR CONDUCTION DELAY [110+ ms QRS DURATION] Compared to ECG 10/26/2019 13:29:31 Intraventricular conduction delay now present Electronically Signed On 10-26-2019 20:46:59 SENIOR CAPITAL MARKETS SPECIALIST by Eliza Paul M.D. [id number]
[2019-10-26 18:24] LABS: Troponin 5 6HR 10.78 ng/L (0-10)
--- NOTE | 2019-10-26 19:36 | PC.NURSE ---
Patient resting in bed on BiPap. Pt breathing comfortably on BiPap and compliant. No apparent distress at present time. Explained to patient the function of BiPap and how to breath comfortably on system. Pt agrees to rest, not work against BiPap and to relax. Pt compliat at present.
--- NOTE | 2019-10-26 20:03 | PC.NURSE ---
Spoke with UC of ICU. Room is waiting to be cleaned.
[2019-10-27] VITALS (18 sets, daily range): BP systolic 111–142; BP diastolic 60–78; PULSE 54–73; RESP 18–35; TEMP 36.6–37.1; O2SAT 92–99
[2019-10-27 00:16] LABS: Troponin 5 6HR Delta -0.22 ng/L (0-12)
[2019-10-27 00:55] LABS: Glucose Point of Care 182 mg/dL (70-110)
[2019-10-27] MEDS: ipratropium-albuterol 3 mL Neb INHALATION ×4 (01:23→20:15)
[2019-10-27] MEDS: trazodone 150 mg Tablet PO ×2 (01:28→20:31)
[2019-10-27] MEDS: atorvastatin 40 mg Tablet 20 MG PO ×2 (01:28→18:26)
[2019-10-27] MEDS: FUROsemide 10 mg/mL SDV 2mL 20 MG IVP ×2 (01:29→01:33)
[2019-10-27 04:32] LABS: Basophils % 0.1 %; Hematocrit 41.7 % (37.0-47.0); Hemoglobin 13.5 g/dL (11.5-15.3); Lymphocytes # 0.5 10^3/uL (0.8-4.8); Lymphocytes % 5.4 %; Mean Corpuscular HGB Conc 32.4 g/dL (30.0-36.0); Mean Corpuscular Hemoglobin 30.4 pg (28.0-34.0); Mean Corpuscular Volume 93.9 fL (81-99); Mean Platelet Volume 10.7 fL (7.4-10.4); Monocytes # 0.2 10^3/uL (0.2-0.9); Monocytes % 2.2 %; Neutrophils # 9.1 10^3/uL (1.8-7.7); Neutrophils % 91.9 %; Nucleated Red Blood Cells % 0 %; Platelet Count 202 10^3/cmm (130-400); Red Blood Count 4.44 10^6/uL (4.1-5.3); Red Cell Distribution Width 12.1 % (12.1-15.1); White Blood Count 9.9 10^3/uL (4.0-10.0)
[2019-10-27 05:00] LABS: Alanine Aminotransferase 36 U/L (0-33); Albumin Level 4.1 g/dL (3.5-5.2); Alkaline Phosphatase 92 IU/L (35-105); Aspartate Amino Transferase 12 U/L (0-32); Blood Urea Nitrogen 9 mg/dL (6-20); Calcium 9.9 mg/Dl (8.6-10.0); Carbon Dioxide 31 mmol/L (22-29); Chloride 94 mmol/L (98-107); Globulin 2.1 g/dL (1.3-4.6); Glomerular Filtration Rate 165.1 mL/min (90-130); Glucose 140 mg/dL (74-109); Sodium 134 mmol/L (136-145); Total Bilirubin 0.6 mg/dL (0.15-1.2); Total Protein 6.2 g/dL (6.6-8.7)
[2019-10-27] MEDS: duloxetine 60 mg Capsule PO (05:18)
[2019-10-27] MEDS: lamoTRIgine 100 mg Tablet 200 MG PO (05:18)
[2019-10-27 07:58] LABS: Glucose Point of Care 142 mg/dL (70-110)
--- NOTE | 2019-10-27 08:00 | P.PN_ITS ---
Subjective Subjective: Interval history: Continues to be in the ICU on BiPAP. Attempts to weaning started this morning. Continues on high-dose steroids. States that she is able to breathe a little bit better this morning Medications: Reviewed: Yes Vitals/I&O/Wt Last Vital Signs Temp 98.8 F 10/27/19 04:00 Pulse 62 10/27/19 05:43 Resp 19 H 10/27/19 04:00 BP 111/66 10/27/19 04:00 Pulse Ox 94 10/27/19 05:43 Weight last 48 hrs Weight 103.561 kg Weight 106.594 kg Physical Exam Const: COMMON NORMALS: no apparent distress and oriented x3 OTHER: BiPAP in place lying comfortably in bed on her side Neck/C-Spine: COMMON NORMALS: no JVD Resp: COMMON NORMALS: normal respiratory effort, no retractions and no use of accessory muscles EFFORT & INSPECTION: Yes able to speak in complete sentences OTHER: On BiPAP Cardio: COMMON NORMALS: no JVD, regular rate, regular rhythm, S1 normal heart sound, S2 normal heart sound, no gallops, no clicks, no murmurs, no rub and peripheral pulses 2+ throughout RATE: regular rate RHYTHM: regular rhythm HEART SOUNDS: S1 normal and S2 normal PERIPHERAL PULSES: pulses 2+ throughout GI: COMMON NORMALS: normal to inspection, nondistended, normoactive bowel sounds Extremity: COMMON NORMALS: normal to inspection, no joint enlargement, no calf tenderness and no pedal edema Neuro: COMMON NORMALS: oriented x3 Data Other Data: Attestation for Other Data: I personally reviewed and interpreted the following: Other data: [address] [address] [address] Scan Report Signed Patient: Tomeka Marshall [facility]#: [id number] : 1965Acct:[id number] Age/Sex: 54 / FADM Date: 10/26/19 Loc: ER Attending Dr: Ordering Physician: Jason Beaulieu DO Date of Service: 10/26/19 Procedure(s): CT angio chest PE protcl [id number] Accession Number(s): [id number] Report Number: [id number] WS: [id number] CTA scan of the chest with IV contrast. Additional two-dimensional coronal and sagittal reconstruction and MIP images was performed. Clinical Data: dyspnea Comparison: None. DLP: 2238.[address] scans at [facility] use at least one of these dose optimization techniques: automated exposure control; mA and/or kV adjustment per patient size (includes targeted exams where dose is matched to clinical indication); or iterative reconstruction. Findings: The central pulmonary arteries and peripheral pulmonary arteries fill normally with no evidence of intermittent luminal filling defects. No pulmonary embolic disease is noted. The lower lobe arteries do not show the filling defects which were present for days ago. No nodules, masses or effusions are seen. The heart size is normal with no pericardial effusion. The pulmonary arterial system and thoracic aorta demonstrate no abnormalities or dilatations. There is no axillary or significant mediastinal adenopathy. The thyroid gland shows normal enhancement. The trachea bifurcates into the bronchi. The upper abdomen shows no abnormalities. The visualized liver, spleen, pancreas, adrenal glands and superior poles of the kidneys are not remarkable. The bones of the thoracic and upper lumbar spine are not remarkable. CT/CT angio chest PE protcl [id number] Impression: 1. Small intraluminal filling defects noted 4 days ago not seen in the lower lobes on this current study. 2. No acute cardiopulmonary disease is seen. A&P Additional A&P Information Additional A&P Information: Acute on chronic respiratory failure: 2/2 Severe COPD exacerbation PE resolving in the CTA . Pt missing her prescribed dose of prednisone Continue Solumedrol 125 mg f/b 60 mg Q6h Douneb stat f/b Q4h budesonide 0.5 mg BID Stat MgSO4 2gm IV Flu swab, MRSA swab, Procal- suspicion of PNA low. No infiltrate on CTA, No white count Bipap ventilation to titrate keeping saturation more than 90%. Discussed with patient that if not able to maintain saturation and if pt getting tired will need to intubate. F Recent ECHO- Normal EF with grade 1 DD B/l PE: Resolving on CTA cw eliquis 10 mg BID to finish 7 days on 10/28/19 f/b 5 mg BID Hypothyroidism: c/w home dose of levothyroxine HTN: BP well controlled. Not on any meds at home. Will continue to monitor T2DM: Hold OHAs ISS @ Mod dose protocol Check ACT Q6h as pt NPO c/w other home meds for depression and anxiety to avoid withdrawal. She is on many medications which can cause resp depression but to avoid withdrawal will decrease dose of cymbalata, Stop latuda and gabapentin and make ambien QHS PRN. NPO for now in view of severe COPD exacerbation. Will start diet if able to com eoff Bipap FC Eliquis for DVT PPx as well Attestations Medical Necessity Statement*: Admitted with COPD exacerbation, awaiting optimization of respiratory status. Coding Level of Care Code Acute Global Account Manager for Parmjit Colin
[2019-10-27 09:20] LABS: Procalcitonin 0.09 ng/mL (0-0.8)
[2019-10-27] MEDS: ARIPiprazole 10 mg Tablet 5 MG PO (09:25)
[2019-10-27] MEDS: levothyroxine 88 mcg Tablet PO (09:25)
[2019-10-27] MEDS: apixaban 5 mg Tablet 10 MG PO ×2 (09:25→18:26)
[2019-10-27] MEDS: budesonide 0.5 mg/2 mL Neb INHALATION ×2 (10:00→20:16)
[2019-10-27 11:30] LABS: Glucose Point of Care 196 mg/dL (70-110)
[2019-10-27 17:10] LABS: Glucose Point of Care 153 mg/dL (70-110)
[2019-10-27 21:18] LABS: Glucose Point of Care 189 mg/dL (70-110)
[2019-10-28] VITALS (12 sets, daily range): BP systolic 126–143; BP diastolic 86–90; PULSE 59–73; RESP 18–25; TEMP 36.9–37; O2SAT 88–97
[2019-10-28] MEDS: ipratropium-albuterol 3 mL Neb INHALATION ×3 (02:01→15:39)
[2019-10-28 02:25] LABS: Amphetamines Screen Urine Negative (Negative); Barbiturates Screen Urine Negative (Negative); Benzodiazepines Screen Urine Negative (Negative); Cocaine Screen Urine Negative (Negative); Opiate Screen Urine Negative (Negative); PCP Screen Urine Negative (Negative); THC Screen Urine Positive (Negative)
--- NOTE | 2019-10-28 05:17 | PC.RESP ---
bipap on standby/pt is awake
[2019-10-28] MEDS: duloxetine 60 mg Capsule PO (05:35)
[2019-10-28] MEDS: lamoTRIgine 100 mg Tablet 200 MG PO (05:35)
[2019-10-28 06:56] LABS: Glucose Point of Care 162 mg/dL (70-110)
[2019-10-28] MEDS: apixaban 5 mg Tablet 10 MG PO (09:08)
[2019-10-28] MEDS: ARIPiprazole 10 mg Tablet 5 MG PO (09:08)
[2019-10-28] MEDS: levothyroxine 88 mcg Tablet PO (09:09)
[2019-10-28 09:28] LABS: Carboxyhemoglobin 1.3 %THgb (0.4-20.1); Oxygen Device NC; Oxygen Saturation ABG 91.7; Total Hemoglobin 14.6 g/dL (12-16)
[2019-10-28 09:29] LABS: Methemoglobin 0.3 % (0.4-1.5)
--- NOTE | 2019-10-28 09:31 | PC.RESP ---
bipap on standby-pt refusing
[2019-10-28 10:11] LABS: Oxygen Device NC
[2019-10-28 12:01] LABS: Glucose Point of Care 313 mg/dL (70-110)
--- NOTE | 2019-10-28 16:50 | PC.NURSE ---
PT GIVEN DISCHARGE ORDERS AND GONE OVER DR APPOINTMENT WITH PRIMARY CARE PHYSICIAN. PT HAD NO QUESTIONS OR CONCERNS AT THIS TIME. PT WANTED DAUGHTER AND SISTER TO TAKE HER BY WHEEL CHAIR TO VEHICLE. PT LEFT AT APPROXIMATELY 1615.
--- NOTE | 2019-11-03 15:06 | PC.SOCIAL ---
Aravind from [facility] calls and tells me that [facility] has sent patient's orders over to her and requests that we do a precert. Luther completed and faxed to [facility]. Pre-Cert number assigned: [id number]
--- NOTE | 2019-11-20 23:15 | P.DS_ITS ---
Discharge Providers Date of Admission: 10/26/19 20:56 Date of Discharge: Date of Discharge: October 28, 2019 Attending Provider at Admission: Jairon Smith MD Attending Provider at Discharge: Shira Jacinto MD Diagnoses at Discharge Discharge Diagnosis (1) Hypertension: Reason for Visit Reason for Visit: Reason For Visit: SOB Hospital Course Discharge Summary: Tomeka Marshall is a 54 year old female past medical history of COPD, on 3 L nasal cannula, hypertension, type 2 diabetes mellitus, hepatitis C status post treatment, obstructive sleep apnea, chronic pain, insomnia, hypothyroidism, GERD, anxiety depression, spinal stenosis, 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 Patient was discharged after being in hospital for acute on chronic respiratory failure due to new PE and COPD exacerbation. Patient was discharged on burst steroids which she has not been able to refill. Patient stated she was feeling fine last night but this morning when she woke up she was feeling extremely difficult to breathe so presented to the ER. On evaluation in ER, she was on bipap and had received 3 rounds of nebulizations, 1 mg ativan and c/o feeling tired, saturating 94% on 40% bipap 09/10. She was admitted to ICU and bipap was eventually weaned down. She received high dose steroids, nebulizations with improvement. CT chest was repeated which showed resolving PE. By time of discharge she had improved significantly, and was discharged with recommendation to continue prescribed medications. Physical Exam Narrative: EXAM NARRATIVE: GEN: Awake, alert and oriented, no acute distress CVS: S1S2 N RS: CTA B/L Abd: Soft, nt/nd , bs+ DOCTOR OF NURSE ANESTHESIA PRACTICE: no focal neuro deficits Discharge Data Data Completed and Pending: Completed Studies During Hospitalization Category Date Time Status CT angio chest PE protcl [id number] Urge nt Cat Scan 10/26/19 13:49 Completed XR chest 1V [place] ble [id number] Urgent Exams 10/26/19 Completed Vitals: Last Vital Signs Temp 98.6 F 10/28/19 16:56 Pulse 73 10/28/19 16:56 Resp 19 H 10/28/19 16:56 BP 126/86 10/28/19 16:56 Pulse Ox 97 10/28/19 16:56 Discharge Plan Discharge Patient Disposition: Home, Self-Care Condition: Stable Prescriptions: Continued atorvastatin [Lipitor] 20 mg Tablet 20 mg PO QPM RF: 0 albuterol sulfate 2.5 mg /3 mL (0.083 %) Solution For Nebulization 2.5 mg INHALATION Q6H PRN (Reason: Shortness Of Breath) RF: 0 omeprazole 40 mg Capsule,Delayed Release(Dr/Ec) 40 mg PO DAILY RF: 0 levothyroxine 88 mcg Tablet 88 mcg PO DAILY RF: 0 trazodone 150 mg Tablet 150 mg PO BEDTIME RF: 0 metformin 1,000 mg Tablet 1,000 mg PO BID RF: 0 glimepiride 4 mg Tablet 2 mg PO DAILY RF: 0 gabapentin 300 mg Capsule 300 mg PO BID RF: 0 zolpidem [Ambien] 5 mg Tablet 5 mg PO BEDTIME RF: 0 albuterol sulfate [Ventolin HFA] 90 mcg/actuation Hfa Aerosol Inhaler 2 puff INHALATION Q4H PRN (Reason: Shortness Of Breath) RF: 0 lamotrigine 100 mg Tablet 200 mg PO QAM RF: 0 aripiprazole [Abilify] 5 mg Tablet 5 mg PO DAILY RF: 0 duloxetine [Cymbalta] 60 mg Capsule,Delayed Release(Dr/Ec) 120 mg PO QAM RF: 0 ramelteon 8 mg Tablet 8 mg PO BEDTIME RF: 0 Latuda 20 mg Tablet 20 mg PO QAM RF: 0 Eliquis DVT-PE Treat 30D Start 5 mg (74 tabs) tablets,dose pack See Rx Instructions .ROUTE .COMPLEX Qty: 74 RF: 0 prednisone 20 mg Tablet 40 mg PO DAILY Qty: 11 RF: 0 nicotine 21 mg/24 hr Patch 24 Hour 1 patch transdermal DAILY PRN (Reason: Withdrawal) 30 Days Qty: 30 RF: 0 No Action Tylenol-Codeine #3 300-30 mg tablet 1 tab PO Q4H PRN (Reason: pain) Qty: 20 RF: 0 Discharge Orders: Discharge Order (Routine); Ordered 10/28/19 Ordered By: Shira Jacinto Other Ambulatory Orders: DME: Oxygen (Order) Location: None Selected Ordered By: Shira Jacinto DME: Oxygen (Order) Location: None Selected Ordered By: Shira Jacinto Referrals: Tayler Lan APRN [Referring] - 11/04/19 1:30 pm Patient Instructions: COPD Discharge Date/Time: 10/28/19 16:15 Discharge Attestations Time Spent in Discharge Care*: less than 30 min Quality Metrics Clinical Quality Measures During this hospital stay, did patient experience: None Coding Level of Care Code Acute Custodial Laborer for Chg Fwd Diagnoses Hypertension I10
== END 2019-10-28 16:15 | disposition home or self-care (01) | DRG 190 ==
LOC: ER 19:46 → ICU 20:57 → MEDSURG 10-27 12:04
PROVIDERS: Admitting Provider Student in an Organized Health Care Education/Training Program; Emergency Provider Family Medicine; Visit Provider Student in an Organized Health Care Education/Training Program
DX: J44.1 Chronic obstructive pulmonary disease with (acute) exacerbation (principal); J96.01 Acute respiratory failure with hypoxia; I27.82 Chronic pulmonary embolism; B17.10 Acute hepatitis C without hepatic coma; I10 Essential (primary) hypertension; E11.9 Type 2 diabetes mellitus without complications; K21.9 Gastro-esophageal reflux disease without esophagitis; G47.33 Obstructive sleep apnea (adult) (pediatric); G89.29 Other chronic pain; Z86.711 Personal history of pulmonary embolism; Z79.01 Long term (current) use of anticoagulants; F41.8 Other specified anxiety disorders; F17.210 Nicotine dependence, cigarettes, uncomplicated
CPT/HCPCS: 12345; 36415; 36416; 36600; 71045; 71275; 76856; 80051; 80053; 80307; 82803; 82810; 82962; 83036; 83735; 83880; 83986; 84100; 84132; 84145; 84443; 84484; 85025; 85049; 85730; 90686; 93005; 93306; 93970; 94640; 94660; 94664; 94762; 96365; 96372; 96374; 96375; 97161; 97165; 97530; 99282; J1644; J1650; J1815; J1940; J2060; J2920; J2930; J3475; J3490; J7030; J7050; J7512; J7626; Q9967

== ENCOUNTER 2019-11-05 13:38 | Emergency (ER) | payer MEDICARE, MEDICAID, SELFPAY ==
[2019-11-05 13:47] VITALS: BP 145/84; PULSE 63; RESP 15; TEMP 36.8; O2SAT 93; BMI 37.1
--- NOTE | 2019-11-05 13:51 | W.ED.LOWEXIN ---
HPI - Extremity Injury (Lower) General: Chief Complaint: Extremity Injury, Lower Stated Complaint: right foot pain Time Seen by Provider: 11/05/19 13:51 Source: patient Mode of arrival: ambulatory Limitations: no limitations History of Present Illness: HPI Narrative: twisted R foot getting out of her car complaint: foot injury Onset (ago): minute(s) Injury: Right: foot Type of Injury: inversion Severity: moderate Relieving factors: immobilization Exacerbating factors: weight bearing, movement and palpation Associated symptoms: Reports no associated symptoms Other symptoms: none Review of Systems Musc: Reports: extremity pain (R foot) Skin/Breast: Reports: other (swelling/bruising R foot) PFSH ED PFSH: Statuses (acute, chronic, etc) shown below reflect problem list status as previously entered and may not be historically accurate Medical History (Updated 11/05/19 @ 14:38 by COLIN Green) Acute on chronic respiratory failure with hypoxemia (Acute) Anxiety and depression (Acute) Chronic pain (Acute) COPD (chronic obstructive pulmonary disease) (Inactive) GERD (gastroesophageal reflux disease) (Acute) Hepatitis C virus infection cured after antiviral drug therapy (Acute) Hyperlipemia (Acute) Hypertension (Acute) Insomnia (Acute) Obstructive sleep apnea (Acute) Ovarian cyst (Acute) Pulmonary embolism (Acute) Spinal stenosis (Acute) Surgical History (Updated 10/26/19 @ 21:23 by Jairon Smith MD) H/O section (Acute) Status post left foot surgery (Acute) Family History (Updated 10/22/19 @ 16:14 by Ramses Martin MD) Mother Cancer Breast cancer Social History (Updated 10/26/19 @ 21:24 by Jairon Smith MD) Smoking and tobacco status: current every day smoker Alcohol intake: never Last substance use date: 10/26/19 Household members: children Physical Exam Const: COMMON NORMALS: no apparent distress, oriented x3 and alert NUTRITIONAL APPEARANCE: obese Extremity: OTHER: TTP, swelling, ecchymosis noted to base of 5th metatarsal on R foot Neuro: COMMON NORMALS: oriented x3 SENSORIUM/ORIENTATION: Yes alert Course Vital Signs: Vital signs: Vital Signs Temperature 98.2 F 11/05/19 13:47 Pulse Rate 74 11/05/19 15:07 Respiratory Rate 18 11/05/19 15:07 Blood Pressure 152/86 11/05/19 15:07 Pulse Oximetry 92 11/05/19 15:07 MDM - Extremity Injury (Lower) Imaging Data^: R foot: Radiologist's impression: [address] [address] XRay Report Signed Patient: Tomeka Marshall Unit #: [id number] : 1965 Age/Sex: 54 / F ADM Date: 11/05/19 Loc: ER Room/Bed: Attending Dr: Ordering Provider/Ordering MD: Susana Singh Date of Service: 11/05/19 Procedure(s): XR foot RT min 3V* 54161 Accession Number(s): [id number] Report Number: [id number] WS: [id number] Right foot, 3 views, 11/05/2019 Clinical Data: twisting Comparison: None. Findings: There is a transverse fracture of the base of the right fifth metatarsal. No other fractures are seen. The phalanges and metatarsal bones are intact. The soft tissues are normal. XR/XR foot RT min 3V* [id number] Impression: Fracture of the base of the right fifth metatarsal. Dictated By: Nanette Jones MD Signed By: Nanette Jones MD Signed Date/Time: 11/05/191412 DD/ 11 Discharge Plan Discharge Patient Disposition: Home, Self-Care Clinical Impression: Fracture of fifth metatarsal bone of right foot Qualifiers: Encounter type: initial encounter Fracture type: closed Fracture alignment: nondisplaced Qualified Code(s): S92.354A - Nondisplaced fracture of fifth metatarsal bone, right foot, initial encounter for closed fracture Condition: Stable Prescriptions: New Tylenol-Codeine #3 300-30 mg tablet 1 tab PO Q4H PRN (Reason: pain) Qty: 20 RF: 0 No Action atorvastatin [Lipitor] 20 mg Tablet 20 mg PO QPM RF: 0 albuterol sulfate 2.5 mg /3 mL (0.083 %) Solution For Nebulization 2.5 mg INHALATION Q6H PRN (Reason: Shortness Of Breath) RF: 0 omeprazole 40 mg Capsule,Delayed Release(Dr/Ec) 40 mg PO DAILY RF: 0 levothyroxine 88 mcg Tablet 88 mcg PO DAILY RF: 0 trazodone 150 mg Tablet 150 mg PO BEDTIME RF: 0 metformin 1,000 mg Tablet 1,000 mg PO BID RF: 0 glimepiride 4 mg Tablet 2 mg PO DAILY RF: 0 gabapentin 300 mg Capsule 300 mg PO BID RF: 0 zolpidem [Ambien] 5 mg Tablet 5 mg PO BEDTIME RF: 0 albuterol sulfate [Ventolin HFA] 90 mcg/actuation Hfa Aerosol Inhaler 2 puff INHALATION Q4H PRN (Reason: Shortness Of Breath) RF: 0 lamotrigine 100 mg Tablet 200 mg PO QAM RF: 0 aripiprazole [Abilify] 5 mg Tablet 5 mg PO DAILY RF: 0 duloxetine [Cymbalta] 60 mg Capsule,Delayed Release(Dr/Ec) 120 mg PO QAM RF: 0 ramelteon 8 mg Tablet 8 mg PO BEDTIME RF: 0 Latuda 20 mg Tablet 20 mg PO QAM RF: 0 Eliquis 5 mg (74 tabs) tablets,dose pack See Rx Instructions .ROUTE .COMPLEX Qty: 74 RF: 0 prednisone 20 mg Tablet 40 mg PO DAILY Qty: 11 RF: 0 nicotine 21 mg/24 hr Patch 24 Hour 1 patch transdermal DAILY PRN (Reason: Withdrawal) 30 Days Qty: 30 RF: 0 Discharge Orders: Discharge Order (Routine); Ordered 11/05/19 Ordered By: Susana Singh Discharge Date/Time: 11/05/19 15:08 Coding Level of Care Code ED Real Estate Sales Associate for Parmjit Colin Exam Problem Focused
--- NOTE | 2019-11-05 13:54 | XR_ITS ---
WS: [id number] Right foot, 3 views, 11/05/2019 Clinical Data: twisting Comparison: None. Findings: There is a transverse fracture of the base of the right fifth metatarsal. No other fractures are seen . The phalanges and metatarsal bones are intact. The soft tissues are normal. XR/XR foot RT min 3V* [id number] Impression: Fracture of the base of the right fifth metatarsal.
[2019-11-05 14:46] VITALS: BP 152/86; PULSE 72; RESP 16; O2SAT 94
[2019-11-05 15:07] VITALS: BP 152/86; PULSE 74; RESP 18; O2SAT 92
--- NOTE | 2019-11-06 10:36 | DCPLANNER ---
graphic manager had message to schedule a follow up appointment for patient with ortho. graphic manager called the ortho clinic, spoke with Adrianna, gave clinic patients information. graphic manager was told that patients information would be printed and reviewed. Clinic will call case operator and patient with appointment information.
--- NOTE | 2019-11-10 12:33 | DCPLANNER ---
Patient has a follow up appointment scheduled for October at 9:[address] Mccauley. Clinic will contact patient with appointment information.
== END 2019-11-05 15:08 | disposition home or self-care (01) ==
PROVIDERS: Emergency Provider Physician Assistant; PCP Nurse Practitioner Family
DX: S92.354A Nondisplaced fracture of fifth metatarsal bone, right foot, initial encounter for closed fracture (principal); Z79.01 Long term (current) use of anticoagulants; Z79.84 Long term (current) use of oral hypoglycemic drugs; X50.1XXA Overexertion from prolonged static or awkward postures, initial encounter; J44.9 Chronic obstructive pulmonary disease, unspecified; Z86.19 Personal history of other infectious and parasitic diseases; E78.5 Hyperlipidemia, unspecified; I10 Essential (primary) hypertension; F17.210 Nicotine dependence, cigarettes, uncomplicated; K21.9 Gastro-esophageal reflux disease without esophagitis
CPT/HCPCS: 73630; 99283

== ENCOUNTER → 2019-11-10 13:03 | Outpatient (BNVA) | payer MEDICARE, MEDICAID, SELFPAY | PROVIDERS: PCP Nurse Practitioner Family; Referring Provider Specialist; Visit Provider Psychiatry & Neurology Neurology | DX: G56.23 Lesion of ulnar nerve, bilateral upper limbs (principal); G56.01 Carpal tunnel syndrome, right upper limb; F17.210 Nicotine dependence, cigarettes, uncomplicated | CPT/HCPCS: 95885; 95910 ==

== ENCOUNTER 2019-11-22 05:13 | Inpatient (IN) | payer MEDICARE, MEDICAID, SELFPAY ==
[2019-11-22] VITALS (20 sets, daily range): BP systolic 100–148; BP diastolic 54–79; PULSE 67–89; RESP 18–26; TEMP 36.5–37.1; O2SAT 88–97; BMI 37.9
--- NOTE | 2019-11-22 05:24 | W.ED.SOB ---
Documented by User: Fredis Cortez DO 11/22/19 19:55 HPI - SOB/Dyspnea General: Chief Complaint: Shortness of Breath/Dyspnea Stated Complaint: RESPIRATORY DISTRESS Time Seen by Provider: 11/22/19 05:19 History of Present Illness: HPI Narrative: 54-year-old lady with a history of COPD presents with shortness of breath and cough for the last 6 days or so. She states she has had a fever. She said the cough is been productive at times. PFSH ED PFSH: Statuses (acute, chronic, etc) shown below reflect problem list status as previously entered and may not be historically accurate Medical History (Updated 11/22/19 @ 15:15 by Ramses Martin MD) Acute on chronic respiratory failure with hypoxemia (Acute) Anxiety and depression (Acute) Chronic pain (Acute) COPD (chronic obstructive pulmonary disease) (Inactive) GERD (gastroesophageal reflux disease) (Acute) Hepatitis C virus infection cured after antiviral drug therapy (Acute) Hyperlipemia (Acute) Hypertension (Acute) Insomnia (Acute) Obstructive sleep apnea (Acute) Ovarian cyst (Acute) Pulmonary embolism (Acute) Spinal stenosis (Acute) Surgical History (Updated 10/26/19 @ 21:23 by Jairon Smith MD) H/O section (Acute) Status post left foot surgery (Acute) Family History (Updated 10/22/19 @ 16:14 by Ramses Martin MD) Mother Cancer Breast cancer Social History (Updated 10/26/19 @ 21:24 by Jairon Smith MD) Smoking and tobacco status: current every day smoker Alcohol intake: never Last substance use date: 10/26/19 Household members: children Course Vital Signs: Vital signs: Vital Signs Temperature 97.7 F 11/22/19 19:28 Pulse Rate 89 11/22/19 19:28 Respiratory Rate 20 H 11/22/19 19:28 Blood Pressure 129/76 11/22/19 19:28 Pulse Oximetry 94 11/22/19 19:25 MDM - SOB/Dyspnea Lab Data: Labs: Lab Results 11/22/19 11/22/19 11/22/19 Range/Units 05:35 05:39 05:39 WBC 4.4 (4.0-10.0) 10^3/ uL RBC 4.42 (4.1-5.3) 10^6/u L Hgb 13.4 (11.5-15.3) g/dL Hct 41.6 (37.0-47.0) % MCV 94.1 (81-99) fL MCH 30.3 (28.0-34.0) pg MCHC 32.2 (30.0-36.0) g/dL RDW 13.1 (12.1-15.1) % Plt Count 178 (130-400) 10^3/c mm MPV 10.4 (7.4-10.4) fL Neut % (Auto) 53.5 % Lymph % (Auto) 30.1 % Harmon % (Auto) 11.6 % Eos % (Auto) 3.9 % Baso % (Auto) 0.7 % Neut # (Auto) 2.3 (1.8-7.7) 10^3/u L Lymph # (Auto) 1.3 (0.8-4.8) 10^3/u L Harmon # (Auto) 0.5 (0.2-0.9) 10^3/u L Eos # (Auto) 0.2 (0.0-0.8) 10^3/u L Baso # (Auto) 0.0 (0.0-0.1) 10^3/u L Nucleated RBC % (a uto) 0 % Nucleated RBCs # 0.0 /100WBC Specimen Type Sample Site ABG pH (7.35-7.45) ABG pCO2 (35-45) mmHg ABG pO2 (80.0-100.0) mmH g ABG HCO3 (22-26) mmol/L ABG Base Excess (-2.0-2.0) mmol/ L Glenn Test Hematocrit (37-47) % O2 Delivery Device O2 Liters/Min % FiO2 % Sales Representative Door To Door ID Sodium 140 (136-145) mmol/L Potassium 4.1 (3.5-5.1) mmol/L Chloride 101 (98-107) mmol/L Carbon Dioxide 29 (22-29) mmol/L Anion Gap 14.1 (5-19) BUN 4 L (6-20) mg/dL Creatinine 0.6 (0.5-0.9) mg/dL GFR Calculation 103.4 (90-130) mL/min Glucose 148 H (74-109) mg/dL Lactate (0.5-2.2) mmol/L Calcium 9.3 (8.5-10.5) mg/dL Total Bilirubin 0.3 (0.15-1.2) mg/dL AST 10 (0-32) U/L ALT 11 (0-33) U/L Alkaline Phosphata se 114 H (35-105) IU/L Troponin T Baselin e (0-10) ng/mL Troponin T 120 Min [place] (0-10) ng/mL Delta Troponin T (0-10) ABS# NT-Pro-B Natriuret Pep 24 (0-125) pg/mL Total Protein 6.2 L (6.6-8.7) g/dL Albumin 4.2 (3.5-5.2) g/dL Globulin 2.0 (1.3-4.6) g/dL Influenza Type A A g Negative (Negative) POC Influenza B Ag Negative (Negative) 11/22/19 11/22/19 11/22/19 Range/Units 05:39 05:40 06:03 WBC (4.0-10.0) 10^3/ uL RBC (4.1-5.3) 10^6/u L Hgb (11.5-15.3) g/dL Hct (37.0-47.0) % MCV (81-99) fL MCH (28.0-34.0) pg MCHC (30.0-36.0) g/dL RDW (12.1-15.1) % Plt Count (130-400) 10^3/c mm MPV (7.4-10.4) fL Neut % (Auto) % Lymph % (Auto) % Harmon % (Auto) % Eos % (Auto) % Baso % (Auto) % Neut # (Auto) (1.8-7.7) 10^3/u L Lymph # (Auto) (0.8-4.8) 10^3/u L Harmon # (Auto) (0.2-0.9) 10^3/u L Eos # (Auto) (0.0-0.8) 10^3/u L Baso # (Auto) (0.0-0.1) 10^3/u L Nucleated RBC % (a uto) % Nucleated RBCs # /100WBC Specimen Type Arterial Sample Site Radial, right ABG pH 7.31 L (7.35-7.45) ABG pCO2 59.4 H (35-45) mmHg ABG pO2 60.6 L (80.0-100.0) mmH g ABG HCO3 29.9 H (22-26) mmol/L ABG Base Excess 2.1 H (-2.0-2.0) mmol/ L Glenn Test Pos Hematocrit 42.2 (37-47) % O2 Delivery Device Nc O2 Liters/Min 4.0 % FiO2 % Sales Representative Door To Door ID ellpe Sodium (136-145) mmol/L Potassium (3.5-5.1) mmol/L Chloride (98-107) mmol/L Carbon Dioxide (22-29) mmol/L Anion Gap (5-19) BUN (6-20) mg/dL Creatinine (0.5-0.9) mg/dL GFR Calculation (90-130) mL/min Glucose (74-109) mg/dL Lactate 1.0 (0.5-2.2) mmol/L Calcium (8.5-10.5) mg/dL Total Bilirubin (0.15-1.2) mg/dL AST (0-32) U/L ALT (0-33) U/L Alkaline Phosphata se (35-105) IU/L Troponin T Baselin e 11 H (0-10) ng/mL Troponin T 120 Min [place] (0-10) ng/mL Delta Troponin T (0-10) ABS# NT-Pro-B Natriuret Pep (0-125) pg/mL Total Protein (6.6-8.7) g/dL Albumin (3.5-5.2) g/dL Globulin (1.3-4.6) g/dL Influenza Type A A g (Negative) POC Influenza B Ag (Negative) 11/22/19 11/22/19 Range/Units 07:40 07:42 WBC (4.0-10.0) 10^3/ uL RBC (4.1-5.3) 10^6/u L Hgb (11.5-15.3) g/dL Hct (37.0-47.0) % MCV (81-99) fL MCH (28.0-34.0) pg MCHC (30.0-36.0) g/dL RDW (12.1-15.1) % Plt Count (130-400) 10^3/c mm MPV (7.4-10.4) fL Neut % (Auto) % Lymph % (Auto) % Harmon % (Auto) % Eos % (Auto) % Baso % (Auto) % Neut # (Auto) (1.8-7.7) 10^3/u L Lymph # (Auto) (0.8-4.8) 10^3/u L Harmon # (Auto) (0.2-0.9) 10^3/u L Eos # (Auto) (0.0-0.8) 10^3/u L Baso # (Auto) (0.0-0.1) 10^3/u L Nucleated RBC % (a uto) % Nucleated RBCs # /100WBC Specimen Type Arterial Sample Site Radial, right ABG pH 7.31 L (7.35-7.45) ABG pCO2 58.7 H (35-45) mmHg ABG pO2 68.9 L (80.0-100.0) mmH g ABG HCO3 29.7 H (22-26) mmol/L ABG Base Excess 2.0 (-2.0-2.0) mmol/ L Glenn Test Pos Hematocrit 42.0 (37-47) % O2 Delivery Device Bipap O2 Liters/Min % FiO2 40.0 % Sales Representative Door To Door ID jmn Sodium (136-145) mmol/L Potassium (3.5-5.1) mmol/L Chloride (98-107) mmol/L Carbon Dioxide (22-29) mmol/L Anion Gap (5-19) BUN (6-20) mg/dL Creatinine (0.5-0.9) mg/dL GFR Calculation (90-130) mL/min Glucose (74-109) mg/dL Lactate (0.5-2.2) mmol/L Calcium (8.5-10.5) mg/dL Total Bilirubin (0.15-1.2) mg/dL AST (0-32) U/L ALT (0-33) U/L Alkaline Phosphata se (35-105) IU/L Troponin T Baselin e (0-10) ng/mL Troponin T 120 Min [place] 9.94 (0-10) ng/mL Delta Troponin T -1.06 L (0-10) ABS# NT-Pro-B Natriuret Pep (0-125) pg/mL Total Protein (6.6-8.7) g/dL Albumin (3.5-5.2) g/dL Globulin (1.3-4.6) g/dL Influenza Type A A g (Negative) POC Influenza B Ag (Negative) Discharge Plan Discharge Patient Disposition: Admitted As Inpatient Admit Provider: Ramses Martin Clinical Impression: COPD with exacerbation Condition: Stable Referrals: Tayler Lan APRN [Primary Care Provider] - Discharge Date/Time: 11/22/19 08:04 Coding Level of Care Code ED Heavy Line Technician for Chg Fwd Documented by User: Mar Kirk MD 11/22/19 07:33 HPI - SOB/Dyspnea General: Chief Complaint: Shortness of Breath/Dyspnea Stated Complaint: RESPIRATORY DISTRESS Time Seen by Provider: 11/22/19 05:19 History of Present Illness: Associated symptoms: Deny abdominal pain, chest pain, fever(s), nausea or vomiting Review of Systems Const: Denies: fever, chills, body aches or change in appetite Eyes: Denies: blurry vision or eye discomfort ENMT: Denies: throat pain or dental pain Card: Denies: chest pain Resp: Reports: shortness of breath and wheezing GI: Denies: abdominal pain, nausea, vomiting or diarrhea : Denies: painful urination Musc: Denies: neck pain or back pain Skin/Breast: Denies: rash Neuro: Denies: headache Psych: Denies: depression Memo/Lymph: Denies: easy bruising All/Imm: Denies: hives PFSH ED PFSH: Statuses (acute, chronic, etc) shown below reflect problem list status as previously entered and may not be historically accurate Medical History (Updated 11/22/19 @ 15:15 by Ramses Martin MD) Acute on chronic respiratory failure with hypoxemia (Acute) Anxiety and depression (Acute) Chronic pain (Acute) COPD (chronic obstructive pulmonary disease) (Inactive) GERD (gastroesophageal reflux disease) (Acute) Hepatitis C virus infection cured after antiviral drug therapy (Acute) Hyperlipemia (Acute) Hypertension (Acute) Insomnia (Acute) Obstructive sleep apnea (Acute) Ovarian cyst (Acute) Pulmonary embolism (Acute) Spinal stenosis (Acute) Surgical History (Updated 10/26/19 @ 21:23 by Jairon Smith MD) H/O section (Acute) Status post left foot surgery (Acute) Family History (Updated 10/22/19 @ 16:14 by Ramses Martin MD) Mother Cancer Breast cancer Social History (Updated 10/26/19 @ 21:24 by Jairon Smith MD) Smoking and tobacco status: current every day smoker Alcohol intake: never Last substance use date: 10/26/19 Household members: children Physical Exam Const: COMMON NORMALS: oriented x3 and healthy appearing GENERAL APPEARANCE: in distress HENMT: COMMON NORMALS: normocephalic and head/scalp atraumatic HEAD & SCALP: normocephalic and atraumatic Eye: COMMON NORMALS: PERRL and EOMs intact bilaterally PUPIL: Yes PERRL Neck/C-Spine: COMMON NORMALS: full ROM and supple Chest: COMMONS NORMALS: inspection of chest normal and palpation of chest normal Resp: EFFORT & INSPECTION: Yes tachypneic, Yes respiratory distress, Yes labored and Yes uses accessory muscles AUSCULTATION: wheezes Cardio: COMMON NORMALS: regular rate, regular rhythm and no murmurs RATE: regular rate RHYTHM: regular rhythm GI: COMMON NORMALS: normal to inspection, nondistended, normoactive bowel sounds, soft to palpation, non-tender and no masses PALPATION: Yes soft Extremity: COMMON NORMALS: normal to inspection and full ROM Neuro: COMMON NORMALS: oriented x3, moves all extremities and no focal motor deficits Psych: COMMON NORMALS: mental status grossly normal, thought process normal and cooperative THOUGHT PROCESS: normal thought process Skin: COMMON NORMALS: no rashes or lesions noted and no wounds GENERAL SKIN EXAM: no rashes or lesions noted Course Vital Signs: Vital signs: Vital Signs Temperature 97.7 F 11/22/19 19:28 Pulse Rate 89 02/02/20 19:28 Respiratory Rate 20 H 11/22/19 19:28 Blood Pressure 129/76 11/22/19 19:28 Pulse Oximetry 94 11/22/19 19:25 MDM - SOB/Dyspnea MDM Narrative: Medical decision making narrative: Patient presents with COPD exacerbation has been noncompliant on her medicines. Spoke to hospitalist and will admit for COPD exacerbation. Patient is improving here on BiPAP. Patient is currently in mild distress. She has no signs of pneumonia. Lab Data: Labs: Lab Results 11/22/19 11/22/19 11/22/19 Range/Units 05:35 05:39 05:39 WBC 4.4 (4.0-10.0) 10^3/ uL RBC 4.42 (4.1-5.3) 10^6/u L Hgb 13.4 (11.5-15.3) g/dL Hct 41.6 (37.0-47.0) % MCV 94.1 (81-99) fL MCH 30.3 (28.0-34.0) pg MCHC 32.2 (30.0-36.0) g/dL RDW 13.1 (12.1-15.1) % Plt Count 178 (130-400) 10^3/c mm MPV 10.4 (7.4-10.4) fL Neut % (Auto) 53.5 % Lymph % (Auto) 30.1 % Harmon % (Auto) 11.6 % Eos % (Auto) 3.9 % Baso % (Auto) 0.7 % Neut # (Auto) 2.3 (1.8-7.7) 10^3/u L Lymph # (Auto) 1.3 (0.8-4.8) 10^3/u L Harmon # (Auto) 0.5 (0.2-0.9) 10^3/u L Eos # (Auto) 0.2 (0.0-0.8) 10^3/u L Baso # (Auto) 0.0 (0.0-0.1) 10^3/u L Nucleated RBC % (a uto) 0 % Nucleated RBCs # 0.0 /100WBC Specimen Type Sample Site ABG pH (7.35-7.45) ABG pCO2 (35-45) mmHg ABG pO2 (80.0-100.0) mmH g ABG HCO3 (22-26) mmol/L ABG Base Excess (-2.0-2.0) mmol/ L Glenn Test Hematocrit (37-47) % O2 Delivery Device O2 Liters/Min % FiO2 % Sales Representative Door To Door ID Sodium 140 (136-145) mmol/L Potassium 4.1 (3.5-5.1) mmol/L Chloride 101 (98-107) mmol/L Carbon Dioxide 29 (22-29) mmol/L Anion Gap 14.1 (5-19) BUN 4 L (6-20) mg/dL Creatinine 0.6 (0.5-0.9) mg/dL GFR Calculation 103.4 (90-130) mL/min Glucose 148 H (74-109) mg/dL Lactate (0.5-2.2) mmol/L Calcium 9.3 (8.5-10.5) mg/dL Total Bilirubin 0.3 (0.15-1.2) mg/dL AST 10 (0-32) U/L ALT 11 (0-33) U/L Alkaline Phosphata se 114 H (35-105) IU/L Troponin T Baselin e (0-10) ng/mL Troponin T 120 Min [place] (0-10) ng/mL Delta Troponin T (0-10) ABS# NT-Pro-B Natriuret Pep 24 (0-125) pg/mL Total Protein 6.2 L (6.6-8.7) g/dL Albumin 4.2 (3.5-5.2) g/dL Globulin 2.0 (1.3-4.6) g/dL Influenza Type A A g Negative (Negative) POC Influenza B Ag Negative (Negative) 11/22/19 11/22/19 11/22/19 Range/Units 05:39 05:40 06:03 WBC (4.0-10.0) 10^3/ uL RBC (4.1-5.3) 10^6/u L Hgb (11.5-15.3) g/dL Hct (37.0-47.0) % MCV (81-99) fL MCH (28.0-34.0) pg MCHC (30.0-36.0) g/dL RDW (12.1-15.1) % Plt Count (130-400) 10^3/c mm MPV (7.4-10.4) fL Neut % (Auto) % Lymph % (Auto) % Harmon % (Auto) % Eos % (Auto) % Baso % (Auto) % Neut # (Auto) (1.8-7.7) 10^3/u L Lymph # (Auto) (0.8-4.8) 10^3/u L Harmon # (Auto) (0.2-0.9) 10^3/u L Eos # (Auto) (0.0-0.8) 10^3/u L Baso # (Auto) (0.0-0.1) 10^3/u L Nucleated RBC % (a uto) % Nucleated RBCs # /100WBC Specimen Type Arterial Sample Site Radial, right ABG pH 7.31 L (7.35-7.45) ABG pCO2 59.4 H (35-45) mmHg ABG pO2 60.6 L (80.0-100.0) mmH g ABG HCO3 29.9 H (22-26) mmol/L ABG Base Excess 2.1 H (-2.0-2.0) mmol/ L Glenn Test Pos Hematocrit 42.2 (37-47) % O2 Delivery Device Nc O2 Liters/Min 4.0 % FiO2 % Sales Representative Door To Door ID ellpe Sodium (136-145) mmol/L Potassium (3.5-5.1) mmol/L Chloride (98-107) mmol/L Carbon Dioxide (22-29) mmol/L Anion Gap (5-19) BUN (6-20) mg/dL Creatinine (0.5-0.9) mg/dL GFR Calculation (90-130) mL/min Glucose (74-109) mg/dL Lactate 1.0 (0.5-2.2) mmol/L Calcium (8.5-10.5) mg/dL Total Bilirubin (0.15-1.2) mg/dL AST (0-32) U/L ALT (0-33) U/L Alkaline Phosphata se (35-105) IU/L Troponin T Baselin e 11 H (0-10) ng/mL Troponin T 120 Min [place] (0-10) ng/mL Delta Troponin T (0-10) ABS# NT-Pro-B Natriuret Pep (0-125) pg/mL Total Protein (6.6-8.7) g/dL Albumin (3.5-5.2) g/dL Globulin (1.3-4.6) g/dL Influenza Type A A g (Negative) POC Influenza B Ag (Negative) 11/22/19 11/22/19 Range/Units 07:40 07:42 WBC (4.0-10.0) 10^3/ uL RBC (4.1-5.3) 10^6/u L Hgb (11.5-15.3) g/dL Hct (37.0-47.0) % MCV (81-99) fL MCH (28.0-34.0) pg MCHC (30.0-36.0) g/dL RDW (12.1-15.1) % Plt Count (130-400) 10^3/c mm MPV (7.4-10.4) fL Neut % (Auto) % Lymph % (Auto) % Harmon % (Auto) % Eos % (Auto) % Baso % (Auto) % Neut # (Auto) (1.8-7.7) 10^3/u L Lymph # (Auto) (0.8-4.8) 10^3/u L Harmon # (Auto) (0.2-0.9) 10^3/u L Eos # (Auto) (0.0-0.8) 10^3/u L Baso # (Auto) (0.0-0.1) 10^3/u L Nucleated RBC % (a uto) % Nucleated RBCs # /100WBC Specimen Type Arterial Sample Site Radial, right ABG pH 7.31 L (7.35-7.45) ABG pCO2 58.7 H (35-45) mmHg ABG pO2 68.9 L (80.0-100.0) mmH g ABG HCO3 29.7 H (22-26) mmol/L ABG Base Excess 2.0 (-2.0-2.0) mmol/ L Glenn Test Pos Hematocrit 42.0 (37-47) % O2 Delivery Device Bipap O2 Liters/Min % FiO2 40.0 % Sales Representative Door To Door ID jmn Sodium (136-145) mmol/L Potassium (3.5-5.1) mmol/L Chloride (98-107) mmol/L Carbon Dioxide (22-29) mmol/L Anion Gap (5-19) BUN (6-20) mg/dL Creatinine (0.5-0.9) mg/dL GFR Calculation (90-130) mL/min Glucose (74-109) mg/dL Lactate (0.5-2.2) mmol/L Calcium (8.5-10.5) mg/dL Total Bilirubin (0.15-1.2) mg/dL AST (0-32) U/L ALT (0-33) U/L Alkaline Phosphata se (35-105) IU/L Troponin T Baselin e (0-10) ng/mL Troponin T 120 Min [place] 9.94 (0-10) ng/mL Delta Troponin T -1.06 L (0-10) ABS# NT-Pro-B Natriuret Pep (0-125) pg/mL Total Protein (6.6-8.7) g/dL Albumin (3.5-5.2) g/dL Globulin (1.3-4.6) g/dL Influenza Type A A g (Negative) POC Influenza B Ag (Negative) Imaging Data^: CXR: My impression: no acute abnormality EKG Data^: EKG 1: Attestation: I personally reviewed and interpreted this EKG as follows: EKG Interpretation Date: 11/22/19 EKG interpretation time: 07:15 Interpretation: nsr hr [address] or t wave abnormalities qrs 104 qtc 436 Discharge Plan Discharge Patient Disposition: Admitted As Inpatient Admit Provider: Ramses Martin Clinical Impression: COPD with exacerbation Condition: Stable Referrals: Tayler Lan APRN [Primary Care Provider] - Discharge Date/Time: 11/22/19 08:04 Coding Level of Care Code ED Heavy Line Technician for Parmjit Colin
--- NOTE | 2019-11-22 05:25 | XRR_ITS ---
PROCEDURE INFORMATION: Exam: XR Chest, 1 View Exam date and time: 11/22/2019 5:50 AM Age: 54 years old Clinical indication: Shortness of breath TECHNIQUE: Imaging protocol: XR of the chest Views: 1 view. COMPARISON: CR XR chest 1V portable [id number] 10/26/2019 12:43 PM FINDINGS: Lungs: No lung consolidation or pulmonary edema. Pleural space: No pleural effusion or pneumothorax. Heart/Mediastinum: The cardiac silhouette is not enlarged. The mediastinal contours are normal. Bones/joints: No acute osseous abnormality. XR/XR chest 1V portable [id number] IMPRESSION: No acute abnormality.
--- NOTE | 2019-11-22 05:27 | ECG_ITS ---
Measurements Intervals [place] Rate: 75 P: 73 NE: 152 QRS: 83 QRSD: 104 T: 81 QT: 408 QTc: 456 SINUS RHYTHM INTERPRETATION BASED ON A DEFAULT AGE OF 40 YEARS Compared to ECG 10/26/2019 17:56:[address]-T changes Intraventricular conduction delay no longer present Electronically Signed On 11-22-2019 15:44:40 REFLOW OPERATOR by Tisha Wright M.D. [email or web address]
[2019-11-22] MEDS: ipratropium-albuterol 3 mL Neb INHALATION ×4 (05:37→19:21)
[2019-11-22 05:48] LABS: ABG PCO2 59.4 mmHg (35-45); ABG PH Result 7.31 (7.35-7.45); Arterial Blood Gas Hematocrit 42.2 % (37-47); Base Excess ABG 2.1 mmol/L (-2.0-2.0); Blood Gas Allen Test Pos; Blood Gas Sample Site Radial, right; Blood Gas Sample Type Arterial; HCO3 ABG 29.9 mmol/L (22-26); Oxygen Device NC; PO2 ABG 60.6 mmHg (80.0-100.0)
[2019-11-22 05:50] LABS: Basophils % 0.7 %; Eosinophils # 0.2 10^3/uL (0.0-0.8); Eosinophils % 3.9 %; Hematocrit 41.6 % (37.0-47.0); Hemoglobin 13.4 g/dL (11.5-15.3); Lymphocytes # 1.3 10^3/uL (0.8-4.8); Lymphocytes % 30.1 %; Mean Corpuscular HGB Conc 32.2 g/dL (30.0-36.0); Mean Corpuscular Hemoglobin 30.3 pg (28.0-34.0); Mean Corpuscular Volume 94.1 fL (81-99); Mean Platelet Volume 10.4 fL (7.4-10.4); Monocytes # 0.5 10^3/uL (0.2-0.9); Monocytes % 11.6 %; Neutrophils # 2.3 10^3/uL (1.8-7.7); Neutrophils % 53.5 %; Nucleated Red Blood Cells % 0 %; Platelet Count 178 10^3/cmm (130-400); Red Blood Count 4.42 10^6/uL (4.1-5.3); Red Cell Distribution Width 13.1 % (12.1-15.1); White Blood Count 4.4 10^3/uL (4.0-10.0)
[2019-11-22] MEDS: cefTRIAXone 1,000 mg SDV 1000 MG IM (05:58)
[2019-11-22 06:10] LABS: Troponin(5th) Baseline 11 ng/mL (0-10)
[2019-11-22 06:18] LABS: Alanine Aminotransferase 11 U/L (0-33); Albumin Level 4.2 g/dL (3.5-5.2); Alkaline Phosphatase 114 IU/L (35-105); Anion Gap 14.1 (5-19); Aspartate Amino Transferase 10 U/L (0-32); Blood Urea Nitrogen 4 mg/dL (6-20); Calcium 9.3 mg/dL (8.5-10.5); Carbon Dioxide 29 mmol/L (22-29); Chloride 101 mmol/L (98-107); Glomerular Filtration Rate 103.4 mL/min (90-130); Glucose 148 mg/dL (74-109); NT Pro B Type Natriuretic Pept 24 pg/mL (0-125); Potassium 4.1 mmol/L (3.5-5.1); Sodium 140 mmol/L (136-145); Total Bilirubin 0.3 mg/dL (0.15-1.2); Total Protein 6.2 g/dL (6.6-8.7)
[2019-11-22 06:40] LABS: Influenza A by IFA Negative (Negative); Influenza B by IFA Negative (Negative)
--- NOTE | 2019-11-22 07:14 | PC.NURSE ---
pt placed in gown. lab in room.
--- NOTE | 2019-11-22 07:27 | ECG_ITS ---
Measurements Intervals [place] Rate: 78 P: 73 RI: 164 QRS: 86 QRSD: 105 T: 80 QT: 409 QTc: 468 SINUS RHYTHM Compared to ECG 10/26/2019 17:56:17 Intraventricular conduction delay no longer present Electronically Signed On 11-23-2019 21:03:14 PRESS MACHINE OPERATOR by Tisha Wright M.D. [email or web address]
[2019-11-22 07:53] LABS: ABG PCO2 58.7 mmHg (35-45); ABG PH Result 7.31 (7.35-7.45); Blood Gas Allen Test Pos; Blood Gas Sample Site Radial, right; Blood Gas Sample Type Arterial; HCO3 ABG 29.7 mmol/L (22-26); Oxygen Device BIPAP; PO2 ABG 68.9 mmHg (80.0-100.0)
[2019-11-22 08:06] LABS: Troponin 5 2HR 9.94 ng/mL (0-10)
[2019-11-22 08:11] LABS: Troponin 5 2HR Delta -1.06 ABS# (0-10)
[2019-11-22 12:18] LABS: Troponin 5 6HR 7.95 ng/L (0-10)
[2019-11-22 12:23] LABS: Troponin 5 6HR Delta -3.05 ng/L (0-12)
[2019-11-22] MEDS: levothyroxine 88 mcg Tablet PO (12:28)
[2019-11-22] MEDS: nicotine 21 mg Patch 1 PATCH TRANSDERMA (12:35)
[2019-11-22] MEDS: doxycycline 100 MG in sodium chloride 0.9% (plus) 100 ML IV (12:37)
--- NOTE | 2019-11-22 14:09 | PC.CHAP ---
Pastoral Care Encounter/Spiritual Assessment Type of Contact [] Declined glass beveller visit [] Patient/Family/Request visit [] Outpatient visit [] Follow-up visit [] Physician referral [] Code/Alert [] Routine visit [] Staff referral [] Actively dying [x] Patient sleeping [] Family support [] [] Out of room [] Palliative care [] [] Receiving care in room [] Pre-surgical visit [] Trauma [] Long length of stay [] ICU visit [] Other: Relational/Emotional Strength [] Patient feels connected with others/family/visitors/staff [] Distress [] Loneliness/isolation [] Abandonment Spirituality of Patient [] Person of Jazzy [] Attends Confucianist of their Jazzy [] Believes in Prayer [] Reads Bible or Druze materials [] There are Spiritual issues to be addressed Development Planner Interventions [] Prayer [] Active listening [] Non-anxious presence [] Spiritual/emotional support [] Crisis/trauma care [] Spiritual counseling [] Bereavement support [] Provided bereavement packet [] Provided Bible/devotional materials [] Provided toy/stuffed animal, coloring book to patient or family member [] Provided Communion [] Anointing/[place] [] Salvation [] Completed spiritual assessment [] Other: Impact on Illness or Injury [] Angry [] Fearful [] Anxious [] Often cries [] Exhaustion [] Unable to work [] Unable to attend zoroastrianism [] Unable to walk/stand [] Unable to read [] Unable to drive [] Unable to eat/drink [] Unable to sleep [] Unable to be with family [] Patient intubated [] Other: Summary pt. sleeping, will do follow up. Time spent with patient 5 krystian.
--- NOTE | 2019-11-22 14:10 | PC.CHAP ---
Pastoral Care Encounter/Spiritual Assessment Type of Contact [] Declined bunker worker visit [] Patient/Family/Request visit [] Outpatient visit [] Follow-up visit [] Physician referral [] Code/Alert [] Routine visit [] Staff referral [] Actively dying [] Patient sleeping [] Family support [] [] Out of room [] Palliative care [] [ x] Receiving care in room [] Pre-surgical visit [] Trauma [] Long length of stay [] ICU visit [] Other: Relational/Emotional Strength [] Patient feels connected with others/family/visitors/staff [] Distress [] Loneliness/isolation [] Abandonment Spirituality of Patient [] Person of Jazzy [] Attends Moravian of their Jazzy [] Believes in Prayer [] Reads Bible or Christian materials [] There are Spiritual issues to be addressed Receptionist Clerk Interventions [] Prayer [] Active listening [] Non-anxious presence [] Spiritual/emotional support [] Crisis/trauma care [] Spiritual counseling [] Bereavement support [] Provided bereavement packet [] Provided Bible/devotional materials [] Provided toy/stuffed animal, coloring book to patient or family member [] Provided Communion [] Anointing/[place] [] Salvation [] Completed spiritual assessment [] Other: Impact on Illness or Injury [] Angry [] Fearful [] Anxious [] Often cries [] Exhaustion [] Unable to work [] Unable to attend jew [] Unable to walk/stand [] Unable to read [] Unable to drive [] Unable to eat/drink [] Unable to sleep [] Unable to be with family [] Patient intubated [] Other: Summary pt. was busy with the dr. barrow revisit. Time spent with patient 5 min.
--- NOTE | 2019-11-22 15:08 | PM.HP ---
Providers/Chief Complaint Admitting Physician: Ramses Martin MD Primary Care Provider: Tayler Lan APRN Chief Complaint: RESPIRATORY DISTRESS History of Present Illness Tomeka Marshall is a 54 year old female with a past medical history of COPD, on 3 L nasal cannula, hypertension, type 2 diabetes mellitus, hepatitis C status post treatment, obstructive sleep apnea on CPAP, chronic pain, insomnia, hypothyroidism, GERD, anxiety and depression, spinal stenosis with a week, with a recent diagnosis of pulmonary embolism on Eliquis who presents to the emergency room due to complaints of shortness of breath. Patient was recently discharged from the hospital for acute respiratory failure secondary to COPD. Patient states that she has been using her steroids as prescribed, CPAP as prescribed, oxygen as prescribed, however she has not gotten better. She complains of progressive shortness of breath, at rest and with exertion, productive cough yellow sputum, no fevers, no chills, no nausea, no vomiting, no chest pain, no sick contacts, no recent travel. I was speaking with Tayler the phlebotomist associate, she was informed by the home oxygen supplier that for the last few days they have been trying to get out of her home to deliver the oxygen, however patient was telling them not to come over as she thought she had the flu, so thus I assume the oxygen has not been delivered to her house for the last week or so. Review of Systems Const: Denies: fever, chills, fatigue or malaise Eyes: Denies: change in vision or blurry vision ENMT: Denies: nasal congestion Resp: Reports: shortness of breath, productive cough and wheezing GI: Denies: abdominal pain, nausea, vomiting, vomiting blood, diarrhea, constipation, blood in stool or black tarry stool : Denies: flank pain, painful urination or urinary frequency Musc: Denies: neck pain or back pain Skin/Breast: Denies: rash Neuro: Denies: headache, dizziness or vertigo Psych: Denies: anxiety or depression Endo: Denies: excessive urination or excessive thirst Medications/Allergies Allergies Allergy/AdvReac Type Severity Reaction Status Date / Time levofloxacin [From Levaquin] Allergy Unknown Verified 11/10/19 13:34 Sulfa (Sulfonamide Allergy Unknown Verified 11/10/19 13:34 Antibiotics) Additional Medication Information Additional Medication Information: Atorvastatin 20 mg once daily Albuterol nebulizer Omeprazole 40 mg once daily Levothyroxine 88 mcg once daily Trazodone 150 mg at bedtime Metformin 1000 twice daily Glimepiride 4 mg daily Gabapentin 300 twice daily Ambien 5 mg at bedtime Lamotrigine 200 mg at bedtime Abilify 5 mg at bedtime Cymbalta 120 mg every morning Ramelteon 8 mg at bedtime Latuda 20 mg every morning Eliquis starter dose pack Prednisone 40 mg daily PFSH Acute PFSH: Statuses (acute, chronic, etc) shown below reflect problem list status as previously entered and may not be historically accurate Medical History (Updated 11/22/19 @ 15:15 by Ramses Martin MD) Acute on chronic respiratory failure with hypoxemia (Acute) Anxiety and depression (Acute) Chronic pain (Acute) COPD (chronic obstructive pulmonary disease) (Inactive) GERD (gastroesophageal reflux disease) (Acute) Hepatitis C virus infection cured after antiviral drug therapy (Acute) Hyperlipemia (Acute) Hypertension (Acute) Insomnia (Acute) Obstructive sleep apnea (Acute) Ovarian cyst (Acute) Pulmonary embolism (Acute) Spinal stenosis (Acute) Surgical History (Updated 10/26/19 @ 21:23 by Jairon Smith MD) H/O section (Acute) Status post left foot surgery (Acute) Family History (Updated 10/22/19 @ 16:14 by Ramses Martin MD) Mother Cancer Breast cancer Social History (Updated 10/26/19 @ 21:24 by Jairon Smith MD) Smoking and tobacco status: current every day smoker Alcohol intake: never Last substance use date: 10/26/19 Household members: children Vitals/I&O/Wt Last Vital Signs Temp 98.6 F 11/22/19 11:33 Pulse 86 11/22/19 15:07 Resp 22 H 11/22/19 15:07 BP 102/54 11/22/19 11:33 Pulse Ox 93 11/22/19 15:07 11/22/19 11/22/19 11/22/19 06:59 14:59 22:59 Intake Total 360 / 360 Balance 360 / 360 Weight last 48 hrs Weight 106.594 kg Physical Exam Const: COMMON NORMALS: no apparent distress and oriented x3 GENERAL APPEARANCE: cooperative and comfortable HENMT: COMMON NORMALS: normocephalic HEAD & SCALP: normocephalic Eye: COMMON NORMALS: PERRL, EOMs intact bilaterally and no papilledema GENERAL EYE: normal appearance of both eyes PUPIL: Yes PERRL DIRECT OPHTHALMOSCOPY: Yes no papilledema Neck/C-Spine: COMMON NORMALS: full ROM, no lymphadenopathy, no JVD and thyroid normal THYROID: thyroid normal Lymph: LYMPHATIC: no lymphadenopathy noted Resp: COMMON NORMALS: normal respiratory effort, no retractions and no use of accessory muscles AUSCULTATION: clear to auscultation bilaterally and wheezes Cardio: COMMON NORMALS: no JVD, regular rate, regular rhythm, S1 normal heart sound, S2 normal heart sound, no gallops, no clicks and no murmurs RATE: regular rate RHYTHM: regular rhythm HEART SOUNDS: S1 normal and S2 normal GI: COMMON NORMALS: normal to inspection, nondistended, normoactive bowel sounds, soft to palpation, non-tender and no hepatosplenomegaly PALPATION: Yes soft and Yes no hepatosplenomegaly Extremity: COMMON NORMALS: normal to inspection, full ROM and no pedal edema Neuro: COMMON NORMALS: oriented x3, CN's II-XII intact bilaterally, moves all extremities and no focal motor deficits Psych: COMMON NORMALS: mental status grossly normal, thought process normal and cooperative THOUGHT PROCESS: normal thought process Data : 11/22/19 05:39 11/22/19 05:39 Micro: Microbiology 11/22/19 07:42 Blood Culture - Preliminary Blood SPECIMEN COLLECTED 11/22/19 05:39 Blood Culture - Preliminary Blood SPECIMEN COLLECTED A&P Assessment and plan (1) Acute on chronic respiratory failure with hypoxia and hypercapnia: Secondary to COPD exacerbation Patient's PCO2 is 50.7, chronically in the 50s, PO2 60.9 Plan: -Solu-Medrol -Doxycycline -Duo nebs -Oxygen therapy -BiPAP during the night Clinically patient has failed CPAP, given chronically elevated PCO2's, patient would clinically benefit from BiPAP at home- Status: Acute Code(s): J96.21 - Acute and chronic respiratory failure with hypoxia; J96.22 - Acute and chronic respiratory failure with hypercapnia (2) Smoking addiction: Status: Acute Code(s): F17.200 - Nicotine dependence, unspecified, uncomplicated (3) COPD with exacerbation: Status: Acute Code(s): J44.1 - Chronic obstructive pulmonary disease with (acute) exacerbation (4) Bilateral pulmonary embolism: Status: Acute Code(s): I26.99 - Other pulmonary embolism without acute cor pulmonale (5) Hypothyroidism: Status: Acute Code(s): E03.9 - Hypothyroidism, unspecified (6) Insomnia: Status: Acute Code(s): G47.00 - Insomnia, unspecified (7) Chronic pain: Status: Acute Code(s): G89.29 - Other chronic pain (8) Obstructive sleep apnea: Status: Acute Code(s): G47.33 - Obstructive sleep apnea (adult) (pediatric) (9) Hyperlipidemia: Status: Acute Code(s): E78.5 - Hyperlipidemia, unspecified (10) Hypertension: Status: Acute Code(s): I10 - Essential (primary) hypertension Attestations Medical Necessity Statement*: Patient requires hospitalization, greater than 2 midnights, inpatient for acute hypoxic hypercarbic respiratory failure secondary to COPD Coding Level of Care Code Acute Director Of Exhibit Development for [facility] Fwd Diagnoses Acute on chronic respiratory failure with hypoxia and hypercapnia J96.21; J96.22 Smoking addiction F17.200 COPD with exacerbation J44.1 Bilateral pulmonary embolism I26.99 Hypothyroidism E03.9 Insomnia G47.00 Chronic pain G89.29 Obstructive sleep apnea G47.33 Hyperlipidemia E78.5 Hypertension I10
[2019-11-22] MEDS: acetaminophen 325 mg Tablet 650 MG PO (16:40)
[2019-11-22 16:54] LABS: Glucose Point of Care 188 mg/dL (70-110)
[2019-11-22] MEDS: apixaban 5 mg Tablet PO (17:26)
[2019-11-22] MEDS: atorvastatin 40 mg Tablet 20 MG PO (17:26)
[2019-11-22] MEDS: gabapentin 300 mg Capsule PO (17:26)
[2019-11-22 17:31] LABS: Add Urine Microscopic? NO
[2019-11-22 17:45] LABS: Glucose Urine UA 4+ (Normal); Ketones Urine 1+ (Negative); Protein Urine Neg (Negative); Urine Appearance Clear (CLEAR); Urine Color Yellow (Yellow); pH Urine 6.5 (5-7)
[2019-11-22 17:46] LABS: Bilirubin Urine Neg (NEGATIVE); Blood Urine Neg (Negative); Leukocyte Esterase Urine Negative (Negative); Nitrate Urine Negative (Negative); Urobilinogen Urine Norm (Negative)
--- NOTE | 2019-11-22 20:22 | PC.NURSE ---
Went to go over patient's home medication list and she did not have a list with her. She said they would have to call her pharmacy to go over her medications. She states she gets her mediations filled [facility] and it is listed under her pharmacy as preferred.
[2019-11-22] MEDS: zolpidem 5 mg Tablet PO (20:59)
[2019-11-22] MEDS: trazodone 150 mg Tablet PO (20:59)
[2019-11-22 21:33] LABS: Glucose Point of Care 137 mg/dL (70-110)
[2019-11-23] VITALS (20 sets, daily range): BP systolic 104–129; BP diastolic 63–88; PULSE 57–88; RESP 17–26; TEMP 36.6–37.2; O2SAT 91–98
[2019-11-23] MEDS: ipratropium-albuterol 3 mL Neb INHALATION ×7 (00:20→23:24)
[2019-11-23] MEDS: doxycycline 100 MG in sodium chloride 0.9% (plus) 100 ML IV ×3 (01:28→23:53)
[2019-11-23] MEDS: lamoTRIgine 100 mg Tablet 200 MG PO (05:19)
[2019-11-23] MEDS: duloxetine 60 mg Capsule 120 MG PO (05:19)
[2019-11-23 05:26] LABS: Basophils % 0.2 %; Eosinophils % 0.5 %; Hemoglobin 11.8 g/dL (11.5-15.3); Lymphocytes # 1.2 10^3/uL (0.8-4.8); Lymphocytes % 27.8 %; Mean Corpuscular HGB Conc 31.9 g/dL (30.0-36.0); Mean Corpuscular Hemoglobin 30.6 pg (28.0-34.0); Mean Corpuscular Volume 96.1 fL (81-99); Monocytes # 0.5 10^3/uL (0.2-0.9); Monocytes % 11.3 %; Neutrophils # 2.7 10^3/uL (1.8-7.7); Neutrophils % 60.2 %; Nucleated Red Blood Cells % 0 %; Platelet Count 176 10^3/cmm (130-400); Red Blood Count 3.85 10^6/uL (4.1-5.3); Red Cell Distribution Width 13.2 % (12.1-15.1); White Blood Count 4.4 10^3/uL (4.0-10.0)
[2019-11-23 05:51] LABS: Alanine Aminotransferase 10 U/L (0-33); Albumin Level 3.4 g/dL (3.5-5.2); Alkaline Phosphatase 93 IU/L (35-105); Anion Gap 12.2 (5-19); Blood Urea Nitrogen 8 mg/dL (6-20); Calcium 9.2 mg/dL (8.5-10.5); Carbon Dioxide 27 mmol/L (22-29); Chloride 101 mmol/L (98-107); Globulin 2.9 g/dL (1.3-4.6); Glomerular Filtration Rate 127.6 mL/min (90-130); Glucose 107 mg/dL (74-109); Potassium 4.2 mmol/L (3.5-5.1); Sodium 136 mmol/L (136-145); Total Bilirubin 0.4 mg/dL (0.15-1.2); Total Protein 6.3 g/dL (6.6-8.7)
[2019-11-23 06:04] LABS: Aspartate Amino Transferase 11 U/L (0-32)
[2019-11-23 06:26] LABS: Procalcitonin 0.02 ng/mL (0-0.5)
[2019-11-23 07:30] LABS: Glucose Point of Care 111 mg/dL (70-110)
[2019-11-23] MEDS: apixaban 5 mg Tablet PO ×2 (08:34→17:28)
[2019-11-23] MEDS: gabapentin 300 mg Capsule PO ×2 (08:34→17:28)
[2019-11-23] MEDS: pantoprazole DR 40 mg Tablet PO (08:34)
[2019-11-23] MEDS: levothyroxine 88 mcg Tablet PO (08:34)
[2019-11-23] MEDS: ARIPiprazole 10 mg Tablet 5 MG PO (08:34)
--- NOTE | 2019-11-23 11:07 | P.PN_ITS ---
Subjective Subjective: Interval history: Chart reviewed. Sputum sample inadequate due to increased number of epithelial cells. Patient seen and examined, on BiPAP, has been very compliant with this. Still quite coarse on examination, and is quite dyspneic with minimal exertion. Medications: Reviewed: Yes Medication Review Details: Current Medications Generic Name Dose Route Start Last Admin Trade Name Freq PRN Reason Stop Dose Admin Acetaminophen 650 mg 11/22/19 16:17 11/22/19 16:40 Tylenol PO 650 mg Q6H PRN Administration MILD PAIN Albuterol/Ipratrop ium 3 ml 11/22/19 12:00 11/23/19 07:22 Duoneb INHALATION 3 ml Q4H.RESPIRATORY S CH Administration Apixaban 5 mg 11/22/19 18:00 11/23/19 08:34 Eliquis PO 5 mg BID NAHID Administration Aripiprazole 5 mg 11/23/19 09:00 11/23/19 08:34 Abilify PO 5 mg DAILY NAHID Administration Atorvastatin Calci um 20 mg 11/22/19 18:00 11/22/19 17:26 Lipitor PO 20 mg QPM NAHID Administration Gabapentin 300 mg 11/22/19 18:00 11/23/19 08:34 Neurontin PO 300 mg BID NAHID Administration Doxycycline Hyclat e 100 mg/ 100 mls @ 100 mls /hr 11/22/19 13:00 11/23/19 02:41 Sodium Chloride IV Infused Q12H NAHID Infusion Protocol Insulin Aspart 0 unit 11/22/19 18:00 11/23/19 08:33 Novolog SUBCUT Not Given TIDWM [facility] Protocol Lamotrigine 200 mg 11/23/19 06:00 11/23/19 05:19 Lamictal PO 200 mg QAM NAHID Administration Levothyroxine Sodi um 88 mcg 11/22/19 10:48 11/23/19 08:34 Synthroid PO 88 mcg DAILY NAHID Administration Lurasidone HCl 20 mg 11/23/19 06:00 11/23/19 05:19 Latuda PO Not Given QAM NAHID Methylprednisolone Sodium Succinate 40 mg 11/23/19 08:00 11/23/19 08:33 Solu-Medrol IVP 40 mg Q8H NAHID Administration Nicotine 1 patch 11/22/19 10:48 11/22/19 12:35 Nicoderm 21 Mg P atch TRANSDERMA 1 patch DAILY PRN Administration Withdrawal Non-Formulary Medi cation 8 mg 11/22/19 21:00 11/22/19 21:00 Ramelteon PO Not Given BEDTIME NAHID Pantoprazole Sodiu m 40 mg 11/23/19 09:00 11/23/19 08:34 Protonix PO 40 mg DAILY NAHID Administration Trazodone HCl 150 mg 11/22/19 21:00 11/22/19 20:59 Desyrel PO 150 mg BEDTIME NAHID Administration Zolpidem Tartrate 5 mg 11/22/19 21:00 11/22/19 20:59 Ambien PO 5 mg BEDTIME NAHID Administration Vitals/I&O/Wt Last Vital Signs Temp 98.1 F 11/23/19 11:03 Pulse 65 11/23/19 11:03 Resp 18 11/23/19 11:03 BP 129/85 11/23/19 11:03 Pulse Ox 91 11/23/19 11:03 11/22/19 11/23/19 11/23/19 22:59 06:59 14:59 Intake Total 530 / 990 460 / 1450 240 / 240 Output Total 1400 / 1400 Balance 530 / 990 -940 / 50 240 / 240 Weight last 48 hrs Weight 106.594 kg Physical Exam Const: COMMON NORMALS: no apparent distress and oriented x3 GENERAL APPEARANCE: cooperative and comfortable ORIENTATION/CONSCIOUSNESS: Yes awake HENMT: COMMON NORMALS: normocephalic, head/scalp atraumatic, hearing grossly normal bilaterally and moist oral mucous membranes HEAD & SCALP: normocephalic and atraumatic Eye: COMMON NORMALS: PERRL, EOMs intact bilaterally and conjunctivae normal CONJUNCTIVA: Yes conjunctivae normal PUPIL: Yes PERRL Neck/C-Spine: COMMON NORMALS: full ROM GENERAL: Yes normal visual inspection and Yes trachea midline Resp: COMMON NORMALS: normal respiratory effort, no retractions and no use of accessory muscles EFFORT & INSPECTION: Yes able to speak in complete sentences, Yes symmetric chest movement and No tachypneic AUSCULTATION: rhonchi throughout and wheezes expiratory wheezes Cardio: COMMON NORMALS: regular rate, regular rhythm, S1 normal heart sound, S2 normal heart sound and no murmurs RATE: regular rate RHYTHM: regular rhythm HEART SOUNDS: S1 normal and S2 normal GI: COMMON NORMALS: normal to inspection, nondistended, normoactive bowel sounds, soft to palpation and non-tender PALPATION: Yes soft Extremity: COMMON NORMALS: normal to inspection, full ROM and no clubbing, cyanosis or edema; negative for no pedal edema Neuro: COMMON NORMALS: oriented x3, moves all extremities, no focal motor deficits, no sensory deficits noted and gait normal Psych: COMMON NORMALS: mental status grossly normal, thought process normal, cooperative, affect normal and speech normal SPEECH: Yes normal speech THOUGHT PROCESS: normal thought process Skin: COMMON NORMALS: no rashes or lesions noted, no jaundice, no petechiae and no mottling GENERAL SKIN EXAM: no rashes or lesions noted Data : 11/23/19 04:56 11/23/19 04:56 Micro: Microbiology 11/22/19 05:39 Blood Culture - Preliminary Blood Gram positive cocci 11/22/19 07:42 Blood Culture - Preliminary Blood NEGATIVE TO DATE 11/22/19 17:15 Legionella Urinary Antigen - Final Urine,Clean Catch 11/22/19 17:15 Bacterial Antigens - Final Urine,Voided A&P Assessment and plan (1) Acute on chronic respiratory failure with hypoxia and hypercapnia: -secondary to acute COPD exacerbation -is oxygen-dependent at baseline, 3 L -continue IV steroids, Neb treatments, empiric doxycycline -supplemental oxygen, BiPAP as needed -ABG noted showing hypercapnia and hypoxia -CXR negative -no leukocytosis, afebrile, pro-calcitonin wnl Status: Acute Code(s): J96.21 - Acute and chronic respiratory failure with hypoxia; J96.22 - Acute and chronic respiratory failure with hypercapnia Additional A&P Information -Morbid obesity: BMI-38 kg/m2 -Hypothyroidism; continue levothyroxine -HTN -DM type II; accuchecks, consistent carb diet, hypoglycemia precautions, ISS -GERD -Anxiety/depression -JAS on CPAP -recent dx of PE; on AC with Eliquis -GI ppx with PPI -no need for DVT ppx as on Eliquis -Dispo: home -Code status: FULL code Attestations Medical Necessity Statement*: Patient requires hospitalization for continued management of acute COPD exacerbation, on higher than baseline oxygen requirement, IV steroids. Time Spent in Patient Care: Greater than 35 minutes (>than 50% of time spent in counselling and/or direct pt care on unit) . Coding Level of Care Code Acute Cash Applications Analyst for [employer] Fwd Exam Problem Focused Diagnoses Acute on chronic respiratory failure with hypoxia and hypercapnia J96.21; J96.22
[2019-11-23 11:27] LABS: Glucose Point of Care 178 mg/dL (70-110)
[2019-11-23] MEDS: nicotine 21 mg Patch 1 PATCH TRANSDERMA (12:36)
--- NOTE | 2019-11-23 12:45 | PC.CHAP ---
Pastoral Care Encounter/Spiritual Assessment Type of Contact [] Declined administrative tech visit [] Patient/Family/Request visit [] Outpatient visit [x] Follow-up visit [] Physician referral [] Code/Alert [] Routine visit [] Staff referral [] Actively dying [] Patient sleeping [] Family support [] [] Out of room [] Palliative care [] [x] Receiving care in room [] Pre-surgical visit [] Trauma [] Long length of stay [] ICU visit [x] Other: Additional follow up needed Relational/Emotional Strength [] Patient feels connected with others/family/visitors/staff [] Distress [] Loneliness/isolation [] Abandonment Spirituality of Patient [] Person of Jazzy [] Attends Jain of their Jazzy [] Believes in Prayer [] Reads Bible or Oriental Orthodox materials [] There are Spiritual issues to be addressed Supply Controller Interventions [] Prayer [] Active listening [] Non-anxious presence [] Spiritual/emotional support [] Crisis/trauma care [] Spiritual counseling [] Bereavement support [] Provided bereavement packet [] Provided Bible/devotional materials [] Provided toy/stuffed animal, coloring book to patient or family member [] Provided Communion [] Anointing/[place] [] Salvation [] Completed spiritual assessment [] Other: Impact on Illness or Injury [] Angry [] Fearful [] Anxious [] Often cries [] Exhaustion [] Unable to work [] Unable to attend anabaptist [] Unable to walk/stand [] Unable to read [] Unable to drive [] Unable to eat/drink [] Unable to sleep [] Unable to be with family [] Patient intubated [] Other: Summary Room was full of medical personnel and equipment and dwould be for extended period of time. Supply Controller Flaca Page was unable to conduct visit. Additional follow up is needed Time spent with patient 2 minutes
[2019-11-23] MEDS: acetaminophen 325 mg Tablet 650 MG PO (15:14)
[2019-11-23 17:03] LABS: Glucose Point of Care 146 mg/dL (70-110)
[2019-11-23] MEDS: atorvastatin 40 mg Tablet 20 MG PO (17:28)
[2019-11-23 21:15] LABS: Glucose Point of Care 187 mg/dL (70-110)
[2019-11-23] MEDS: morphine 4 mg/mL SDV 1 mL 2 MG IVP (21:46)
[2019-11-23] MEDS: trazodone 150 mg Tablet PO (21:46)
[2019-11-23] MEDS: zolpidem 5 mg Tablet PO (21:46)
[2019-11-24] VITALS (14 sets, daily range): BP systolic 118–138; BP diastolic 66–87; PULSE 62–85; RESP 16–24; TEMP 36.4–37.1; O2SAT 91–96
[2019-11-24] MEDS: ipratropium-albuterol 3 mL Neb INHALATION ×5 (03:21→19:43)
[2019-11-24] MEDS: duloxetine 60 mg Capsule 120 MG PO (05:56)
[2019-11-24] MEDS: lamoTRIgine 100 mg Tablet 200 MG PO (05:57)
[2019-11-24 06:04] LABS: Hematocrit 38.7 % (37.0-47.0); Hemoglobin 12.6 g/dL (11.5-15.3); Lymphocytes # 0.5 10^3/uL (0.8-4.8); Lymphocytes % 9.2 %; Mean Corpuscular HGB Conc 32.6 g/dL (30.0-36.0); Mean Corpuscular Hemoglobin 30.5 pg (28.0-34.0); Mean Corpuscular Volume 93.7 fL (81-99); Mean Platelet Volume 10.5 fL (7.4-10.4); Monocytes # 0.2 10^3/uL (0.2-0.9); Monocytes % 3.4 %; Neutrophils # 4.6 10^3/uL (1.8-7.7); Nucleated Red Blood Cells % 0 %; Platelet Count 189 10^3/cmm (130-400); Red Blood Count 4.13 10^6/uL (4.1-5.3); Red Cell Distribution Width 12.8 % (12.1-15.1); White Blood Count 5.3 10^3/uL (4.0-10.0)
[2019-11-24 06:23] LABS: Alanine Aminotransferase 11 U/L (0-33); Albumin Level 3.9 g/dL (3.5-5.2); Alkaline Phosphatase 100 IU/L (35-105); Anion Gap 15.6 (5-19); Aspartate Amino Transferase 9 U/L (0-32); Blood Urea Nitrogen 10 mg/dL (6-20); Calcium 9.5 mg/dL (8.5-10.5); Carbon Dioxide 25 mmol/L (22-29); Chloride 100 mmol/L (98-107); Globulin 2.6 g/dL (1.3-4.6); Glomerular Filtration Rate 127.6 mL/min (90-130); Glucose 186 mg/dL (74-109); Potassium 4.6 mmol/L (3.5-5.1); Sodium 136 mmol/L (136-145); Total Bilirubin 0.3 mg/dL (0.15-1.2); Total Protein 6.5 g/dL (6.6-8.7)
[2019-11-24 06:33] LABS: Glucose Point of Care 165 mg/dL (70-110)
[2019-11-24 07:13] LABS: Procalcitonin 0.02 ng/mL (0-0.5)
[2019-11-24] MEDS: ARIPiprazole 10 mg Tablet 5 MG PO (08:32)
[2019-11-24] MEDS: apixaban 5 mg Tablet PO ×2 (08:33→17:36)
[2019-11-24] MEDS: gabapentin 300 mg Capsule PO ×2 (08:33→17:36)
[2019-11-24] MEDS: pantoprazole DR 40 mg Tablet PO (08:33)
[2019-11-24] MEDS: levothyroxine 88 mcg Tablet PO (08:33)
--- NOTE | 2019-11-24 10:30 | P.PN_ITS ---
Subjective Subjective: Interval history: Had 1400 mL urine output overnight. On 4 L NC. Patient seen and examined, reports feeling better, seems to have more of a cough today, less coarse on auscultation. Will request overnight pulse oximetry to arrange for BiPAP. Medications: Reviewed: Yes Medication Review Details: Current Medications Generic Name Dose Route Start Last Admin Trade Name Freq PRN Reason Stop Dose Admin Acetaminophen 650 mg 11/22/19 16:17 11/23/19 15:14 Tylenol PO 650 mg Q6H PRN Administration MILD PAIN Albuterol/Ipratrop ium 3 ml 11/22/19 12:00 11/24/19 07:38 Duoneb INHALATION 3 ml Q4H.RESPIRATORY S CH Administration Apixaban 5 mg 11/22/19 18:00 11/24/19 08:33 Eliquis PO 5 mg BID NAHID Administration Aripiprazole 5 mg 11/23/19 09:00 11/24/19 08:32 Abilify PO 5 mg DAILY NAHID Administration Atorvastatin Calci um 20 mg 11/22/19 18:00 11/23/19 17:28 Lipitor PO 20 mg QPM NAHID Administration Gabapentin 300 mg 11/22/19 18:00 11/24/19 08:33 Neurontin PO 300 mg BID NAHID Administration Doxycycline Hyclat e 100 mg/ 100 mls @ 100 mls /hr 11/22/19 13:00 11/23/19 23:53 Sodium Chloride IV 100 mls/hr Q12H NAHID Administration Protocol Insulin Aspart 0 unit 11/22/19 18:00 11/24/19 08:31 Novolog SUBCUT 4 unit TIDWM NAHID Administration Protocol Lamotrigine 200 mg 11/23/19 06:00 11/24/19 05:57 Lamictal PO 200 mg QAM NAHID Administration Levothyroxine Sodi um 88 mcg 11/22/19 10:48 11/24/19 08:33 Synthroid PO 88 mcg DAILY NAHID Administration Lurasidone HCl 20 mg 11/23/19 06:00 11/24/19 05:57 Latuda PO Not Given QAM NAHID Methylprednisolone Sodium Succinate 40 mg 11/23/19 08:00 11/24/19 08:33 Solu-Medrol IVP 40 mg Q8H NAHID Administration Nicotine 1 patch 11/22/19 10:48 11/23/19 12:36 Nicoderm 21 Mg P atch TRANSDERMA 1 patch DAILY PRN Administration Withdrawal Non-Formulary Medi cation 8 mg 11/22/19 21:00 11/23/19 21:52 Ramelteon PO Not Given BEDTIME NAHID Pantoprazole Sodiu m 40 mg 11/23/19 09:00 11/24/19 08:33 Protonix PO 40 mg DAILY NAHID Administration Trazodone HCl 150 mg 11/22/19 21:00 11/23/19 21:46 Desyrel PO 150 mg BEDTIME NAHID Administration Zolpidem Tartrate 5 mg 11/22/19 21:00 11/23/19 21:46 Ambien PO 5 mg BEDTIME NAHID Administration Vitals/I&O/Wt Last Vital Signs Temp 98.0 F 11/24/19 07:57 Pulse 62 11/24/19 07:57 Resp 18 11/24/19 07:57 BP 133/84 11/24/19 07:57 Pulse Ox 93 11/24/19 07:57 11/23/19 11/24/19 11/24/19 22:59 06:59 14:59 Intake Total 390 / 1330 500 / 1830 360 / 360 Output Total 400 / 400 1450 / 1850 600 / 600 Balance -10 / 930 -950 / -20 -240 / -240 Physical Exam Const: COMMON NORMALS: no apparent distress and oriented x3 GENERAL APPEARANCE: cooperative and comfortable ORIENTATION/CONSCIOUSNESS: Yes awake HENMT: COMMON NORMALS: normocephalic, head/scalp atraumatic, hearing grossly normal bilaterally and moist oral mucous membranes HEAD & SCALP: normocepha lic and atraumatic Eye: COMMON NORMALS: PERRL, EOMs intact bilaterally and conjunctivae normal CONJUNCTIVA: Yes conjunctivae normal PUPIL: Yes PERRL Neck/C-Spine: COMMON NORMALS: full ROM GENERAL: Yes normal visual inspection and Yes trachea midline Resp: COMMON NORMALS: normal respiratory effort, no retractions and no use of accessory muscles EFFORT & INSPECTION: Yes able to speak in complete sentences, Yes symmetric chest movement, No tachypneic and Yes actively coughing non-productive AUSCULTATION: rhonchi throughout and wheezes expiratory wheezes Cardio: COMMON NORMALS: regular rate, regular rhythm, S1 normal heart sound, S2 normal heart sound and no murmurs RATE: regular rate RHYTHM: regular rhythm HEART SOUNDS: S1 normal and S2 normal GI: COMMON NORMALS: normal to inspection, nondistended, normoactive bowel sounds, soft to palpation and non-tender PALPATION: Yes soft Extremity: COMMON NORMALS: normal to inspection, full ROM and no clubbing, cyanosis or edema; negative for no pedal edema Neuro: COMMON NORMALS: oriented x3, moves all extremities, no focal motor deficits and no sensory deficits noted Psych: COMMON NORMALS: mental status grossly normal, thought process normal, cooperative, affect normal and speech normal SPEECH: Yes normal speech THOUGHT PROCESS: normal thought process Skin: COMMON NORMALS: no rashes or lesions noted, no jaundice, no petechiae and no mottling GENERAL SKIN EXAM: no rashes or lesions noted Data : 11/24/19 05:51 11/24/19 05:51 Micro: Microbiology 11/22/19 05:39 Blood Culture - Preliminary Blood Strep species, gamma-hemolytic 11/22/19 07:42 Blood Culture - Preliminary Blood NEGATIVE TO DATE A&P Assessment and plan (1) Acute on chronic respiratory failure with hypoxia and hypercapnia: -secondary to acute COPD exacerbation -is oxygen-dependent at baseline, 3 L -continue IV steroids, Neb treatments, empiric doxycycline -supplemental oxygen, BiPAP as needed -ABG noted showing hypercapnia and hypoxia -CXR negative -no leukocytosis, afebrile, pro-calcitonin wnl -request overnight pulse oximetry; arrange for home BiPAP Status: Acute Code(s): J96.21 - Acute and chronic respiratory failure with hypoxia; J96.22 - Acute and chronic respiratory failure with hypercapnia Additional A&P Information -Morbid obesity: BMI-38 kg/m2 -Hypothyroidism; continue levothyroxine -HTN -DM type II; accuchecks, consistent carb diet, hypoglycemia precautions, ISS -GERD -Anxiety/depression -JAS on CPAP -recent dx of PE; on AC with Eliquis -GI ppx with PPI -no need for DVT ppx as on Eliquis -Dispo: home -Code status: FULL code Attestations Medical Necessity Statement*: Patient requires hospitalization for continued management of acute COPD exacerbation, on IV steroids, higher than baseline oxygen requirement. Time Spent in Patient Care: Greater than 35 minutes (>than 50% of time spent in counselling and/or direct pt care on unit) . Coding Level of Care Code Acute Catastrophe Claims Supervisor for Chg Fwd Exam Problem Focused Diagnoses Acute on chronic respiratory failure with hypoxia and hypercapnia J96.21; J96.22
[2019-11-24 11:15] LABS: Glucose Point of Care 101 mg/dL (70-110)
[2019-11-24] MEDS: doxycycline 100 MG in sodium chloride 0.9% (plus) 100 ML IV (12:27)
[2019-11-24] MEDS: nicotine 21 mg Patch 1 PATCH TRANSDERMA (12:52)
[2019-11-24] MEDS: acetaminophen 325 mg Tablet 650 MG PO (16:39)
[2019-11-24] MEDS: atorvastatin 40 mg Tablet 20 MG PO (17:36)
--- NOTE | 2019-11-24 17:39 | PC.NURSE ---
glucose check 220 is not showing up in lab.
[2019-11-24] MEDS: zolpidem 5 mg Tablet PO (21:34)
[2019-11-24] MEDS: trazodone 150 mg Tablet PO (21:34)
[2019-11-24] MEDS: morphine 4 mg/mL SDV 1 mL 1 MG IVP (21:34)
[2019-11-25] VITALS (12 sets, daily range): BP systolic 125–144; BP diastolic 62–91; PULSE 59–82; RESP 18–24; TEMP 36.4–36.8; O2SAT 86–98
[2019-11-25] MEDS: doxycycline 100 MG in sodium chloride 0.9% (plus) 100 ML IV ×2 (01:11→12:49)
[2019-11-25 01:43] LABS: Glucose Point of Care 274 mg/dL (70-110)
[2019-11-25] MEDS: ipratropium-albuterol 3 mL Neb INHALATION ×3 (03:27→11:20)
[2019-11-25] MEDS: duloxetine 60 mg Capsule 120 MG PO (05:28)
[2019-11-25] MEDS: lamoTRIgine 100 mg Tablet 200 MG PO (05:28)
[2019-11-25 05:37] LABS: Hematocrit 40.5 % (37.0-47.0); Hemoglobin 13.2 g/dL (11.5-15.3); Lymphocytes # 0.7 10^3/uL (0.8-4.8); Mean Corpuscular HGB Conc 32.6 g/dL (30.0-36.0); Mean Corpuscular Hemoglobin 31.4 pg (28.0-34.0); Mean Corpuscular Volume 96.2 fL (81-99); Mean Platelet Volume 10.8 fL (7.4-10.4); Monocytes # 0.3 10^3/uL (0.2-0.9); Monocytes % 4.6 %; Neutrophils # 5.5 10^3/uL (1.8-7.7); Neutrophils % 83.8 %; Nucleated Red Blood Cells % 0 %; Platelet Count 197 10^3/cmm (130-400); Red Blood Count 4.21 10^6/uL (4.1-5.3); White Blood Count 6.6 10^3/uL (4.0-10.0)
[2019-11-25 05:50] LABS: Alanine Aminotransferase 12 U/L (0-33); Alkaline Phosphatase 96 IU/L (35-105); Anion Gap 15.3 (5-19); Aspartate Amino Transferase 9 U/L (0-32); Blood Urea Nitrogen 10 mg/dL (6-20); Calcium 9.2 mg/dL (8.5-10.5); Carbon Dioxide 27 mmol/L (22-29); Chloride 95 mmol/L (98-107); Globulin 2.8 g/dL (1.3-4.6); Glomerular Filtration Rate 127.6 mL/min (90-130); Potassium 4.3 mmol/L (3.5-5.1); Sodium 133 mmol/L (136-145); Total Bilirubin 0.4 mg/dL (0.15-1.2); Total Protein 6.8 g/dL (6.6-8.7)
[2019-11-25 06:04] LABS: Procalcitonin 0.02 ng/mL (0-0.5)
[2019-11-25 06:24] LABS: Glucose Point of Care 174 mg/dL (70-110)
[2019-11-25] MEDS: ARIPiprazole 10 mg Tablet 5 MG PO (08:43)
[2019-11-25] MEDS: levothyroxine 88 mcg Tablet PO (08:43)
[2019-11-25] MEDS: pantoprazole DR 40 mg Tablet PO (08:44)
[2019-11-25] MEDS: gabapentin 300 mg Capsule PO (08:44)
[2019-11-25] MEDS: apixaban 5 mg Tablet PO (08:44)
[2019-11-25 09:12] LABS: Glucose 181 mg/dL (65-115)
--- NOTE | 2019-11-25 09:40 | P.PN_ITS ---
Subjective Subjective: Interval history: Remains on 4 L NC. AM labs noted. Had 2200 mL urine output overnight. No BMs since admission, start on bowel regimen. Patient seen and examined, resting in bed, just came back from ambulating in the hallway, reports feeling well and would like to go home today. Explained that we are still in the process of setting up BiPAP at home but she would still like to go home today. Medications: Reviewed: Yes Medication Review Details: Current Medications Generic Name Dose Route Start Last Admin Trade Name Freq PRN Reason Stop Dose Admin Acetaminophen 650 mg 11/22/19 16:17 11/24/19 16:39 Tylenol PO 650 mg Q6H PRN Administration MILD PAIN Albuterol/Ipratrop ium 3 ml 11/22/19 12:00 11/25/19 07:53 Duoneb INHALATION 3 ml Q4H.RESPIRATORY S CH Administration Apixaban 5 mg 11/22/19 18:00 11/25/19 08:44 Eliquis PO 5 mg BID NAHID Administration Aripiprazole 5 mg 11/23/19 09:00 11/25/19 08:43 Abilify PO 5 mg DAILY NAHID Administration Atorvastatin Calci um 20 mg 11/22/19 18:00 11/24/19 17:36 Lipitor PO 20 mg QPM NAHID Administration Gabapentin 300 mg 11/22/19 18:00 11/25/19 08:44 Neurontin PO 300 mg BID NAHID Administration Doxycycline Hyclat e 100 mg/ 100 mls @ 100 mls /hr 11/22/19 13:00 11/25/19 01:11 Sodium Chloride IV 100 mls/hr Q12H NAHID Administration Protocol Insulin Aspart 0 unit 11/22/19 18:00 11/24/19 17:54 Novolog SUBCUT 6 unit TIDWM NAHID Administration Protocol Lamotrigine 200 mg 11/23/19 06:00 11/25/19 05:28 Lamictal PO 200 mg QAM NAHID Administration Levothyroxine Sodi um 88 mcg 11/22/19 10:48 11/25/19 08:43 Synthroid PO 88 mcg DAILY NAHID Administration Lurasidone HCl 20 mg 11/23/19 06:00 11/25/19 05:32 Latuda PO Not Given QAM NAHID Methylprednisolone Sodium Succinate 40 mg 11/23/19 08:00 11/25/19 08:15 Solu-Medrol IVP 40 mg Q8H NAHID Administration Nicotine 1 patch 11/22/19 10:48 11/24/19 12:52 Nicoderm 21 Mg P atch TRANSDERMA 1 patch DAILY PRN Administration Withdrawal Non-Formulary Medi cation 8 mg 11/22/19 21:00 11/24/19 21:29 Ramelteon PO Not Given BEDTIME NAHID Pantoprazole Sodiu m 40 mg 11/23/19 09:00 11/25/19 08:44 Protonix PO 40 mg DAILY NAHID Administration Trazodone HCl 150 mg 11/22/19 21:00 11/24/19 21:34 Desyrel PO 150 mg BEDTIME NAHID Administration Zolpidem Tartrate 5 mg 11/22/19 21:00 11/24/19 21:34 Ambien PO 5 mg BEDTIME NAHID Administration Vitals/I&O/Wt Last Vital Signs Temp 97.9 F 11/25/19 07:29 Pulse 67 11/25/19 08:01 Resp 18 11/25/19 07:56 BP 144/89 11/25/19 07:29 Pulse Ox 98 11/25/19 07:56 11/24/19 11/25/19 11/25/19 22:59 06:59 14:59 Intake Total 360 / 360 Output Total 200 / 800 1999 / 280 Balance - -1999 / 360 / 360 Physical Exam Const: COMMON NORMALS: no apparent distress and oriented x3 GENERAL APPEARANCE: cooperative and comfortable ORIENTATION/CONSCIOUSNESS: Yes awake HENMT: COMMON NORMALS: normocephalic, head/scalp atraumatic, hearing grossly normal bilaterally and moist oral mucous membranes HEAD & SCALP: normocephalic and atraumatic Eye: COMMON NORMALS: PERRL, EOMs intact bilaterally and conjunctivae normal CONJUNCTIVA: Yes conjunctivae normal PUPIL: Yes PERRL Neck/C-Spine: COMMON NORMALS: full ROM GENERAL: Yes normal visual inspection and Yes trachea midline Resp: COMMON NORMALS: normal respiratory effort, no retractions and no use of accessory muscles EFFORT & INSPECTION: Yes able to speak in complete sentences, Yes symmetric chest movement and No tachypneic AUSCULTATION: rhonchi throughout (minimal) and wheezes expiratory wheezes Cardio: COMMON NORMALS: regular rate, regular rhythm, S1 normal heart sound, S2 normal heart sound and no murmurs RATE: regular rate RHYTHM: regular rhythm HEART SOUNDS: S1 normal and S2 normal GI: COMMON NORMALS: normal to inspection, nondistended, normoactive bowel sounds, soft to palpation and non-tender PALPATION: Yes soft Extremity: COMMON NORMALS: normal to inspection, full ROM and no clubbing, cyanosis or edema; negative for no pedal edema OTHER: -has CAM boot on R secondary to fracture Neuro: COMMON NORMALS: oriented x3, moves all extremities, no focal motor deficits and no sensory deficits noted Psych: COMMON NORMALS: mental status grossly normal, thought process normal, cooperative, affect normal and speech normal SPEECH: Yes normal speech THOUGHT PROCESS: normal thought process Skin: COMMON NORMALS: no rashes or lesions noted, no jaundice, no petechiae and no mottling GENERAL SKIN EXAM: no rashes or lesions noted Data : 11/25/19 04:57 11/25/19 04:57 Micro: Microbiology 11/22/19 05:39 Blood Culture - Preliminary Blood Strep species, gamma-hemolytic A&P Assessment and plan (1) Acute on chronic respiratory failure with hypoxia and hypercapnia: -secondary to acute COPD exacerbation -is oxygen-dependent at baseline, 4 L -continue IV steroids, Neb treatments, empiric doxycycline -supplemental oxygen, BiPAP as needed -ABG noted showing hypercapnia and hypoxia -CXR negative -no leukocytosis, afebrile, pro-calcitonin wnl -request overnight pulse oximetry; arrange for home BiPAP Status: Acute Code(s): J96.21 - Acute and chronic respiratory failure with hypoxia; J96.22 - Acute and chronic respiratory failure with hypercapnia Additional A&P Information -Morbid obesity: BMI-38 kg/m2 -Hypothyroidism; continue levothyroxine -HTN -DM type II; accuchecks, consistent carb diet, hypoglycemia precautions, ISS -GERD -Anxiety/depression -JAS on CPAP -recent dx of PE; on AC with Eliquis -GI ppx with PPI -no need for DVT ppx as on Eliquis -Dispo: home -Code status: FULL code Attestations Medical Necessity Statement*: Discharge home today Time Spent in Patient Care: Greater than 35 minutes (>than 50% of time spent in counselling and/or direct pt care on unit) . Coding Level of Care Code Acute Plastic Injection Mold Maker for Chg Fwd Exam Problem Focused Diagnoses Acute on chronic respiratory failure with hypoxia and hypercapnia J96.21; J96.22
[2019-11-25] MEDS: polyethylene glycol 3350 Pkt 17 gm PO (11:16)
[2019-11-25 11:39] LABS: Glucose Point of Care 140 mg/dL (70-110)
--- NOTE | 2019-11-25 13:07 | PM.DCS ---
Discharge Providers Date of Admission: 11/22/19 07:43 Date of Discharge: Date of Discharge: November 25, 2019 Attending Provider at Admission: Ramses Martin MD Attending Provider at Discharge: Vero Nance MD Primary Care Provider: Tayler Lan APRN Diagnoses at Discharge Discharge Diagnosis (1) Acute on chronic respiratory failure with hypoxia and hypercapnia: Status: Acute Problem details: -secondary to acute COPD exacerbation -is oxygen-dependent at baseline, 4 L -continue IV steroids, Neb treatments, empiric doxycycline -supplemental oxygen, BiPAP as needed -ABG noted showing hypercapnia and hypoxia -CXR negative -no leukocytosis, afebrile, pro-calcitonin wnl -request overnight pulse oximetry; arrange for home BiPAP Other Information Additional DC diagnoses/information: -Morbid obesity: BMI-38 kg/m2 -Hypothyroidism; continue levothyroxine -HTN -DM type II; accuchecks, consistent carb diet, hypoglycemia precautions, ISS -GERD -Anxiety/depression -JAS on CPAP -recent dx of PE; on AC with Eliquis Reason for Visit Reason for Visit: Reason For Visit: RESPIRATORY DISTRESS Hospital Course Hospital Course: Patient was admitted to the medical surgical floor and started on IV steroids, empiric antibiotics with close monitoring of her respiratory status. She was also started on BiPAP as needed as her initial oxygen requirement was quite high. She has responded well to the aforementioned treatment and has been weaned down to her baseline oxygen requirement of 4 L. She did have a repeat home oxygen evaluation done prior to discharge to ensure that she maintains a saturation appropriately on her home oxygen requirement. We were in the process of setting up home BiPAP but patient has opted to go home at this time. She is hemodynamically stable, maintaining her saturation appropriately, afebrile, tolerating oral intake without difficulty, ambulatory. She is wearing a CAM boot secondary to her right foot fracture which was present prior to admission. She will be discharged with a tapering dose of oral steroids as well as oral doxycycline to complete her treatment course. She will require close follow-up with her primary care provider. Discharge Summary: -Patient to follow-up with her primary care provider within 1 week -Patient advised to seek medical attention immediately should any of her symptoms worsen. Physical Exam Const: COMMON NORMALS: no apparent distress and oriented x3 GENERAL APPEARANCE: cooperative and comfortable ORIENTATION/CONSCIOUSNESS: Yes awake HENMT: COMMON NORMALS: normocephalic, head/scalp atraumatic, hearing grossly normal bilaterally and moist oral mucous membranes HEAD & SCALP: normocephalic and atraumatic Eye: COMMON NORMALS: PERRL, EOMs intact bilaterally and conjunctivae normal CONJUNCTIVA: Yes conjunctivae normal PUPIL: Yes PERRL Neck/C-Spine: COMMON NORMALS: full ROM GENERAL: Yes normal visual inspection and Yes trachea midline Resp: COMMON NORMALS: normal respiratory effort, no retractions and no use of accessory muscles EFFORT & INSPECTION: Yes able to speak in complete sentences, Yes symmetric chest movement and No tachypneic AUSCULTATION: rhonchi throughout (minimal) and wheezes expiratory wheezes Cardio: COMMON NORMALS: regular rate, regular rhythm, S1 normal heart sound, S2 normal heart sound and no murmurs RATE: regular rate RHYTHM: regular rhythm HEART SOUNDS: S1 normal and S2 normal GI: COMMON NORMALS: normal to inspection, nondistended, normoactive bowel sounds, soft to palpation and non-tender PALPATION: Yes soft Extremity: COMMON NORMALS: normal to inspection, full ROM and no clubbing, cyanosis or edema; negative for no pedal edema OTHER: -has CAM boot on R secondary to fracture Neuro: COMMON NORMALS: oriented x3, moves all extremities, no focal motor deficits and no sensory deficits noted Psych: COMMON NORMALS: mental status grossly normal, thought process normal, cooperative, affect normal and speech normal SPEECH: Yes normal speech THOUGHT PROCESS: normal thought process Skin: COMMON NORMALS: no rashes or lesions noted, no jaundice, no petechiae and no mottling GENERAL SKIN EXAM: no rashes or lesions noted Discharge Data Data Completed and Pending: Completed Studies During Hospitalization Category Date Time Status XR chest 1V [place] [id number] Urgent Exams 11/22/19 05:25 Completed Pending at discharge Category Date Time Status Blood Culture Sta t Lab 11/22/19 07:42 Results Respiratory Viral Panel PCR Stat Lab 11/22/19 10:48 Received Viral Respiratory ,Rapid Cultur Stat Lab 11/23/19 08:45 Received Labs from last 24 hours 11/25/19 11/25/19 11/25/19 11:14 05:39 04:57 WBC RBC Hgb Hct MCV MCH MCHC RDW Plt Count MPV Neut % (Auto) Lymph % (Auto) [place] % (Auto) Eos % (Auto) Baso % (Auto) Neut # (Auto) Lymph # (Auto) [place] # (Auto) Eos # (Auto) Baso # (Auto) Nucleated RBC % (a uto) Nucleated RBCs # Sodium Potassium Chloride Carbon Dioxide Anion Gap BUN Creatinine GFR Calculation Glucose POC Glucose 140 174 Calcium Total Bilirubin AST ALT Alkaline Phosphata se Total Protein Albumin Globulin Procalcitonin 0.02 11/25/19 11/25/19 11/25/19 04:57 04:57 00:40 WBC 6.6 RBC 4.21 Hgb 13.2 Hct 40.5 MCV 96.2 MCH 31.4 MCHC 32.6 RDW 13.0 Plt Count 197 MPV 10.8 H Neut % (Auto) 83.8 Lymph % (Auto) 11.0 [place] % (Auto) 4.6 Eos % (Auto) 0.0 Baso % (Auto) 0.0 Neut # (Auto) 5.5 Lymph # (Auto) 0.7 L [place] # (Auto) 0.3 Eos # (Auto) 0.0 Baso # (Auto) 0.0 Nucleated RBC % (a uto) 0 Nucleated RBCs # 0.0 Sodium 133 L Potassium 4.3 Chloride 95 L Carbon Dioxide 27 Anion Gap 15.3 BUN 10 Creatinine 0.5 GFR Calculation 127.6 Glucose 181 H POC Glucose 274 Calcium 9.2 Total Bilirubin 0.4 AST 9 ALT 12 Alkaline Phosphata se 96 Total Protein 6.8 Albumin 4.0 Globulin 2.8 Procalcitonin Vitals: Last Vital Signs Temp 98.0 F 11/25/19 11:15 Pulse 68 11/25/19 11:29 Resp 18 11/25/19 11:20 BP 142/88 11/25/19 11:15 Pulse Ox 93 11/25/19 11:20 Discharge Plan Discharge Condition: Stable Prescriptions: New Eliquis 5 mg Tablet 5 mg PO BID 30 Days Qty: 60 RF: 0 doxycycline hyclate 100 mg capsule 100 mg PO BID 7 Days Qty: 14 RF: 0 prednisone 20 mg tablet 20 mg PO DAILY 6 Days Qty: 12 RF: 0 Continued acetaminophen-codeine [Tylenol-Codeine #3] 300-30 mg tablet 1 tab PO Q4H PRN (Reason: pain) Qty: 20 RF: 0 atorvastatin [Lipitor] 20 mg Tablet 20 mg PO QPM RF: 0 albuterol sulfate 2.5 mg /3 mL (0.083 %) Solution For Nebulization 2.5 mg INHALATION Q6H PRN (Reason: Shortness Of Breath) RF: 0 omeprazole 40 mg Capsule,Delayed Release(Dr/Ec) 40 mg PO DAILY RF: 0 levothyroxine 88 mcg Tablet 88 mcg PO DAILY RF: 0 trazodone 150 mg Tablet 150 mg PO BEDTIME RF: 0 metformin 1,000 mg Tablet 1,000 mg PO BID RF: 0 glimepiride 4 mg Tablet 2 mg PO DAILY RF: 0 gabapentin 300 mg Capsule 300 mg PO BID RF: 0 zolpidem [Ambien] 5 mg Tablet 5 mg PO BEDTIME RF: 0 albuterol sulfate [Ventolin HFA] 90 mcg/actuation Hfa Aerosol Inhaler 2 puff INHALATION Q4H PRN (Reason: Shortness Of Breath) RF: 0 lamotrigine 100 mg Tablet 200 mg PO QAM RF: 0 aripiprazole [Abilify] 5 mg Tablet 5 mg PO DAILY RF: 0 duloxetine [Cymbalta] 60 mg Capsule,Delayed Release(Dr/Ec) 120 mg PO QAM RF: 0 ramelteon 8 mg Tablet 8 mg PO BEDTIME RF: 0 Latuda 20 mg Tablet 20 mg PO QAM RF: 0 nicotine 21 mg/24 hr Patch 24 Hour 1 patch transdermal DAILY PRN (Reason: Withdrawal) 30 Days Qty: 30 RF: 0 Discontinued Eliquis DVT-PE Treat 30D Start 5 mg (74 tabs) tablets,dose pack See Rx Instructions .ROUTE .COMPLEX Qty: 74 RF: 0 prednisone 20 mg Tablet 40 mg PO DAILY Qty: 11 RF: 0 Discharge Orders: Discharge Order (Routine); Ordered 11/25/19 Ordered By: Vero Nance Other Ambulatory Orders: DME: BIPAP (Order) Location: None Selected Ordered By: Vero Nance Referrals: Lan,DEANNA LesterN [Primary Care Provider] - 4-7 days Discharge Diet: Diabetic Discharge Activity: Resume usual activity and Oxygen as instructed Discharge Attestations Time Spent in Discharge Care*: greater than 30 min Specific Discharge Activities: Specific discharge activities: educating patient, discussing with showcase trimmer/social workers/dc planners, documenting/other paperwork and evaluating patient/reviewing data Status at Discharge: Cognitive status at discharge: cognitively intact, Behavioral status at discharge: cooperative, Functional status at discharge: other assisted ambulation (has CAM boot secondary to R foot fracture) Overall status at discharge: patient is back to baseline Quality Metrics Clinical Quality Measures During this hospital stay, did patient experience: None Coding Level of Care Code Acute Identification Clerk for Chg Fwd Diagnoses Acute on chronic respiratory failure with hypoxia and hypercapnia J96.21; J96.22
[2019-11-25 15:29] LABS: Glucose Point of Care 220 mg/dL (70-110)
--- NOTE | 2019-12-22 12:11 | PC.SOCIAL ---
Dr Garcia reviewed critical blood culture results and indicates probable contaminant. Recommended follow up with PCP with repeat blood culture. Called clinic and spoke with Samara who advised to write on cover sheet what is recommended when sending culture. Information sent with confirmation of successful fax transmission. Left message for patient to return call to update her as well.
== END 2019-11-25 14:25 | disposition home or self-care (01) | DRG 190 ==
LOC: ER 07:25 → MEDSURG 07:43
PROVIDERS: Emergency Medicine; Admitting Provider Family Medicine; Emergency Provider Emergency Medicine; PCP Nurse Practitioner Family; Visit Provider Family Medicine
DX: J44.1 Chronic obstructive pulmonary disease with (acute) exacerbation (principal); J96.22 Acute and chronic respiratory failure with hypercapnia; J96.21 Acute and chronic respiratory failure with hypoxia; J44.9 Chronic obstructive pulmonary disease, unspecified; I10 Essential (primary) hypertension; F41.9 Anxiety disorder, unspecified; F32.9 Major depressive disorder, single episode, unspecified; K21.9 Gastro-esophageal reflux disease without esophagitis; E03.9 Hypothyroidism, unspecified; G47.33 Obstructive sleep apnea (adult) (pediatric); Z79.01 Long term (current) use of anticoagulants; Z86.711 Personal history of pulmonary embolism; E66.01 Morbid (severe) obesity due to excess calories; Z68.38 Body mass index [BMI] 38.0-38.9, adult; Z79.890 Hormone replacement therapy; G89.29 Other chronic pain; G47.00 Insomnia, unspecified; E11.9 Type 2 diabetes mellitus without complications; B19.20 Unspecified viral hepatitis C without hepatic coma; Z88.2 Allergy status to sulfonamides; Z88.1 Allergy status to other antibiotic agents; Z88.8 Allergy status to other drugs, medicaments and biological substances; Z79.899 Other long term (current) drug therapy; F17.200 Nicotine dependence, unspecified, uncomplicated
CPT/HCPCS: 12345; 36415; 36416; 36600; 71045; 80053; 81003; 82803; 82962; 83605; 83880; 84145; 84484; 85025; 86403; 87040; 87070; 87077; 87184; 87205; 87449; 87804; 93005; 94640; 94660; 96365; 96366; 96372; 96374; 96375; 99283; J0696; J1815; J2270; J2920; J2930; J3490; J7050

== ENCOUNTER → 2019-11-30 10:02 | Outpatient (BNVA) | payer MEDICARE, MEDICAID, SELFPAY | PROVIDERS: PCP Nurse Practitioner Family; Visit Provider Specialist | DX: S92.351A Displaced fracture of fifth metatarsal bone, right foot, initial encounter for closed fracture (principal); X58.XXXA Exposure to other specified factors, initial encounter | CPT/HCPCS: 73630 ==

== ENCOUNTER 2019-11-30 11:11 | Outpatient (CLI) | payer MEDICARE, MEDICAID, SELFPAY | END 2019-11-30 11:12 | disposition home or self-care (01) | LOC: SPT 11:12 | PROVIDERS: PCP Nurse Practitioner Family; Visit Provider Specialist | DX: S92.351D Displaced fracture of fifth metatarsal bone, right foot, subsequent encounter for fracture with routine healing (principal); X58.XXXD Exposure to other specified factors, subsequent encounter | CPT/HCPCS: L4361 ==

== ENCOUNTER → 2019-12-01 14:13 | Outpatient (BNVA) | payer MEDICARE, MEDICAID, SELFPAY | PROVIDERS: PCP Nurse Practitioner Family; Visit Provider Nurse Practitioner Psychiatric/Mental Health | DX: F31.81 Bipolar II disorder (principal); F43.12 Post-traumatic stress disorder, chronic; F17.209 Nicotine dependence, unspecified, with unspecified nicotine-induced disorders; J44.9 Chronic obstructive pulmonary disease, unspecified | CPT/HCPCS: 99214 ==

== ENCOUNTER → 2019-12-16 08:31 | Outpatient (BNVA) | payer MEDICARE, MEDICAID, SELFPAY | PROVIDERS: PCP Nurse Practitioner Family; Visit Provider Specialist | DX: G47.419 Narcolepsy without cataplexy (principal); F17.210 Nicotine dependence, cigarettes, uncomplicated | CPT/HCPCS: 99215 ==

== ENCOUNTER 2019-12-31 13:15 | Outpatient (CLI) | payer MEDICARE, MEDICAID, SELFPAY ==
--- NOTE | 2019-12-31 13:38 | XR_ITS ---
WS: [id number] CERVICAL SPINE 3 VIEWS HISTORY: CERVICAL PAIN COMPARISON: None available. Normal cervical alignment. No fracture. C2 anterolisthesis by 3.5 mm. Mild disc space narrowing at C5 -6. Mild facet joint arthropathy on the LEFT from C3 to C6. Lateral masses of C1 and C2 are aligned. Odontoid is normal. No soft tissue abnormalities. XR/XR cervical spine 3V* [id number] IMPRESSION: 1. Mild straightening of the normal cervical lordosis. 2. C2 anterolisthesis by 3.5 mm. 3. Mild spondylosis.
== END 2019-12-31 13:16 | disposition home or self-care (01) ==
LOC: RADWPI 13:21
PROVIDERS: PCP Nurse Practitioner Family; Visit Provider Nurse Practitioner Family
DX: M47.892 Other spondylosis, cervical region (principal); M54.2 Cervicalgia
CPT/HCPCS: 72040

== ENCOUNTER → 2020-01-18 08:36 | Outpatient (BNVA) | payer MEDICARE, MEDICAID, SELFPAY | PROVIDERS: PCP Nurse Practitioner Family; Visit Provider Nurse Practitioner Psychiatric/Mental Health | DX: F43.12 Post-traumatic stress disorder, chronic (principal); F17.209 Nicotine dependence, unspecified, with unspecified nicotine-induced disorders; J44.9 Chronic obstructive pulmonary disease, unspecified; F31.81 Bipolar II disorder | CPT/HCPCS: 99212 ==

== ENCOUNTER 2020-01-19 18:59 | Emergency (ER) | payer MEDICARE, MEDICAID, SELFPAY ==
[2020-01-19 19:01] VITALS: BP 132/77; PULSE 69; RESP 18; TEMP 36.8; O2SAT 94; BMI 41.1
--- NOTE | 2020-01-19 19:04 | XR_ITS ---
WS: [id number] PORTABLE CHEST HISTORY: cough COMPARISON: 11/22/2019 Marked pulmonary hyperexpansion. New opacifications bilaterally. Vague opacification at the RIGHT sadaf g base. Interstitial thickening and increasing opacification over the mid and lower LEFT lung. No ple ural effusion or pneumothorax. Cardiac size: Normal. Mediastinum/Aorta: Normal mediastinum. No osseous abnormality seen. XR/XR chest 1V portable [id number] IMPRESSION: 1. Bilateral pulmonary opacifications. Probably involving the lower lobes in t he LEFT upper lobe. 2. Chronic emphysema.
--- NOTE | 2020-01-19 19:04 | W.ED.URI ---
HPI - URI/Sore Throat General: Chief Complaint: Shortness of Breath/Dyspnea Stated Complaint: COUGH,SOB X 3 WKS, CHEST CONGESTION Time Seen by Provider: 01/19/20 19:03 Source: patient Mode of arrival: ambulatory Limitations: no limitations History of Present Illness: HPI Narrative: Patient comes in today for cough and congestion for about 3 weeks. Patient thinks that she might have pneumonia. Patient has a history of COPD, diabetes, and mental health disorder. Patient appears mildly unwell. Patient appears in no acute distress. Patient appears in no pain. Review of Systems General: Reports: 10 or more systems reviewed and unremarkable except in HPI and below Resp: Reports: shortness of breath and non-productive cough PFSH ED PFSH: Medical History (Updated 01/19/20 @ 19:51 by OSCAR Sequeira) Acute on chronic respiratory failure with hypoxemia Anxiety and depression Bipolar 2 disorder Chronic pain Chronic post-traumatic stress disorder (PTSD) COPD (chronic obstructive pulmonary disease) COPD (chronic obstructive pulmonary disease) COPD (chronic obstructive pulmonary disease) GERD (gastroesophageal reflux disease) Hepatitis C virus infection cured after antiviral drug therapy Hyperlipemia Hypertension Insomnia Obstructive sleep apnea Ovarian cyst Pulmonary emboli Pulmonary embolism Spinal stenosis Tobacco use disorder, continuous Surgical History H/O section Status post left foot surgery Social History Smoking and tobacco status: current every day smoker cigarettes Packs smoked per day: 1 Years cigarettes smoked: 30 Quit status (tobacco): considering quitting Second hand smoke exposure: No Alcohol intake: never Last substance use date: 10/26/19 Household members: children Current occupational status: unemployed History of recent travel: No Physical Exam Const: COMMON NORMALS: no apparent distress and oriented x3 GENERAL APPEARANCE: cooperative HENMT: COMMON NORMALS: normocephalic, external ears normal, EAC's normal, TM's normal bilaterally and external nose normal HEAD & SCALP: normal to inspection and normocephalic FACE & SINUS: normal facial exam NOSE: external nose normal GENERAL EAR: hearing not grossly impaired EXTERNAL EAR: Yes external ears normal EXTERNAL AUDITORY CANAL: EAC's normal TYMPANIC MEMBRANE: TM's normal bilaterally MOUTH: oral and palatal mucosa normal THROAT: posterior oropharynx normal Eye: COMMON NORMALS: PERRL and EOMs intact bilaterally PUPIL: Yes PERRL Neck/C-Spine: COMMON NORMALS: full ROM and no lymphadenopathy Lymph: LYMPHATIC: no lymphedema noted Chest: COMMONS NORMALS: inspection of chest normal and palpation of chest normal Resp: COMMON NORMALS: normal respiratory effort AUSCULTATION: wheezes expiratory wheezes Cardio: COMMON NORMALS: regular rate and regular rhythm RATE: regular rate RHYTHM: regular rhythm GI: COMMON NORMALS: normal to inspection, nondistended, normoactive bowel sounds and non-tender : COMMON NORMALS: Yes no CVA tenderness BLADDER/KIDNEY EXAM: Yes no CVA tenderness Back/Pelvis: COMMON NORMALS: no CVA tenderness and thoracic and lumbar spine normal to inspection Extremity: COMMON NORMALS: normal to inspection GENERAL: No edema Neuro: COMMON NORMALS: oriented x3, moves all extremities and no focal motor deficits Psych: COMMON NORMALS: mental status grossly normal and cooperative Skin: COMMON NORMALS: no rashes or lesions noted GENERAL SKIN EXAM: no rashes or lesions noted Course Vital Signs: Vital signs: Vital Signs Temperature 98.3 F 01/19/20 19:01 Pulse Rate 64 01/19/20 19:38 Respiratory Rate 20 H 01/19/20 19:38 Blood Pressure 130/69 01/19/20 19:38 Pulse Oximetry 95 01/19/20 19:38 MDM - URI/Sore Throat MDM Narrative: Medical decision making narrative: Patient comes in today for complaints of shortness of breath and cough and congestion for 3 weeks. Patient has a history of COPD. Patient appears mildly unwell. Exam notes some expiratory wheezes but with air movement throughout lung inman. Skin is warm and dry. Vital signs are normal. Differential diagnosis includes pneumonia, exacerbation of COPD, sepsis, upper respiratory infection, bronchitis. Chest x-ray noted no obvious infiltrates. Laboratory values noted normal anion gap, no leukocytosis. ABGs noted some mild hypoxia, but is very similar to patient's previous ABGs. pH of the ABGs were normal. Reviewed exam with patient recommended treatment for exacerbation of COPD. Will put her on antibiotics to cover for concerns of infection, and persistent symptoms for 3 weeks. Patient will be given a burst of steroid and recommended to take her ipratropium at least 4 times a day along with albuterol every 4 hours as needed. Patient reported understanding of care plan and need for follow-up or return to the ER. Lab Data: Labs: Lab Results 01/19/20 01/19/20 01/19/20 Range/Units 19:00 19:00 19:10 WBC 8.7 (4.0-10.0) 10^3/ uL RBC 4.50 (4.1-5.3) 10^6/u L Hgb 13.6 (11.5-15.3) g/dL Hct 42.2 (37.0-47.0) % MCV 93.8 (81-99) fL MCH 30.2 (28.0-34.0) pg MCHC 32.2 (30.0-36.0) g/dL RDW 12.9 (12.1-15.1) % Plt Count 200 (130-400) 10^3/c mm MPV 10.7 H (7.4-10.4) fL Neut % (Auto) 73.9 % Lymph % (Auto) 17.1 % [place] % (Auto) 8.2 % Eos % (Auto) 0.3 % Baso % (Auto) 0.3 % Neut # (Auto) 6.4 (1.8-7.7) 10^3/u L Lymph # (Auto) 1.5 (0.8-4.8) 10^3/u L [place] # (Auto) 0.7 (0.2-0.9) 10^3/u L Eos # (Auto) 0.0 (0.0-0.8) 10^3/u L Baso # (Auto) 0.0 (0.0-0.1) 10^3/u L Nucleated RBC % (a uto) 0 % Nucleated RBCs # 0.0 /100WBC Specimen Type Arterial Sample Site Brachial, right ABG pH 7.42 (7.35-7.45) ABG pCO2 48.2 H (35-45) mmHg ABG pO2 71.1 L (80.0-100.0) mmH g ABG HCO3 31.5 H (22-26) mmol/L ABG Base Excess 5.9 H (-2.0-2.0) mmol/ L Glenn Test Pos Hematocrit 41.3 (37-47) % O2 Delivery Device Nc O2 Liters/Min 2.0 % College Recruiter ID dilki Sodium 136 (136-145) mmol/L Potassium 3.9 (3.5-5.1) mmol/L Chloride 96 L (98-107) mmol/L Carbon Dioxide 29 (22-29) mmol/L Anion Gap 14.9 (5-19) BUN 3 L (6-20) mg/dL Creatinine 0.4 L (0.5-0.9) mg/dL GFR Calculation 165.1 H (90-130) mL/min Glucose 118 H (65-115) mg/dL Calculated Osmolal ity 279 L (285-295) mOsm/k g Calcium 9.6 (8.5-10.5) mg/dL Total Bilirubin 0.5 (0.15-1.2) mg/dL AST 9 (0-32) U/L ALT 7 (0-33) U/L Alkaline Phosphata se 96 (35-105) IU/L Total Protein 6.8 (6.6-8.7) g/dL Albumin 4.0 (3.5-5.2) g/dL Globulin 2.8 (1.3-4.6) g/dL Discharge Plan Discharge Patient Disposition: Home, Self-Care Clinical Impression: Acute exacerbation of chronic obstructive airways disease Condition: Stable Prescriptions: New ipratropium-albuterol 0.5 mg-3 mg(2.5 mg base)/3 mL solution for nebulization 3 ml INHALATION QID Qty: 90 RF: 0 doxycycline hyclate 100 mg capsule 100 mg PO BID 10 Days Qty: 20 RF: 0 prednisone 20 mg tablet 20 mg PO DAILY Qty: 5 RF: 0 No Action modafinil [Provigil] 200 mg tablet 200 mg PO DAILY Qty: 30 RF: 5 Chantix 1 mg tablet 1 mg PO DAILY Qty: 56 RF: 5 modafinil [Provigil] 200 mg tablet 200 mg PO DAILY Qty: 30 RF: 5 Incruse Ellipta 62.5 mcg/actuation blister with device 1 inh INHALATION DAILY RF: 0 (DME) CAM WALKER Qty: 1 RF: 0 duloxetine [Cymbalta] 60 mg capsule,delayed release(DR/EC) 120 mg PO QAM Qty: 60 RF: 0 trazodone 150 mg tablet 150 mg PO .qhs PRN (Reason: insomnia) Qty: 45 RF: 0 lamotrigine 100 mg tablet 200 mg PO QAM Qty: 60 RF: 0 zolpidem [Ambien] 5 mg tablet 5 mg PO BEDTIME PRN (Reason: insomnia) Qty: 30 RF: 0 atorvastatin [Lipitor] 20 mg Tablet 20 mg PO QPM RF: 0 omeprazole 40 mg Capsule,Delayed Release(Dr/Ec) 40 mg PO DAILY RF: 0 levothyroxine 88 mcg Tablet 88 mcg PO DAILY RF: 0 metformin 1,000 mg Tablet 1,000 mg PO BID RF: 0 glimepiride 4 mg Tablet 2 mg PO DAILY RF: 0 gabapentin 300 mg Capsule 300 mg PO BID RF: 0 albuterol sulfate [Ventolin HFA] 90 mcg/actuation Hfa Aerosol Inhaler 2 puff INHALATION Q4H PRN (Reason: Shortness Of Breath) RF: 0 albuterol sulfate 2.5 mg /3 mL (0.083 %) solution for nebulization 2.5 mg INHALATION Q4H PRN (Reason: Shortness Of Breath) RF: 0 Referrals: Tayler Lan FNP [Primary Care Provider] - Discharge Diet: Usual diet Discharge Activity: Increase activity as tolerated Patient Instructions: Chronic Obstructive Pulmonary Disease (ED) Activity Restrictions/Additional Instructions: Healthy diet and exercise Medications as directed Use albuterol nebulizer treatments every four hours as needed Use ipratropium-albuterol nebulizer solution four times a day for the next 5 days then as needed Take antibiotics as directed Follow-up with primary care in three days, call to make appointment Return to ER for worsening shortness of breath, or high fever, or new concerns Coding Level of Care Code ED Program Professional for Parmjit Colin Exam Comprehensive
[2020-01-19 19:18] LABS: Basophils % 0.3 %; Eosinophils % 0.3 %; Hematocrit 42.2 % (37.0-47.0); Hemoglobin 13.6 g/dL (11.5-15.3); Lymphocytes # 1.5 10^3/uL (0.8-4.8); Lymphocytes % 17.1 %; Mean Corpuscular HGB Conc 32.2 g/dL (30.0-36.0); Mean Corpuscular Hemoglobin 30.2 pg (28.0-34.0); Mean Corpuscular Volume 93.8 fL (81-99); Mean Platelet Volume 10.7 fL (7.4-10.4); Monocytes # 0.7 10^3/uL (0.2-0.9); Monocytes % 8.2 %; Neutrophils # 6.4 10^3/uL (1.8-7.7); Neutrophils % 73.9 %; Nucleated Red Blood Cells % 0 %; Platelet Count 200 10^3/cmm (130-400); Red Cell Distribution Width 12.9 % (12.1-15.1); White Blood Count 8.7 10^3/uL (4.0-10.0)
[2020-01-19] MEDS: ipratropium-albuterol 3 mL Neb INHALATION (19:25)
[2020-01-19 19:27] LABS: Alanine Aminotransferase 7 U/L (0-33); Alkaline Phosphatase 96 IU/L (35-105); Anion Gap 14.9 (5-19); Aspartate Amino Transferase 9 U/L (0-32); Blood Urea Nitrogen 3 mg/dL (6-20); Calcium 9.6 mg/dL (8.5-10.5); Carbon Dioxide 29 mmol/L (22-29); Chloride 96 mmol/L (98-107); Globulin 2.8 g/dL (1.3-4.6); Glomerular Filtration Rate 165.1 mL/min (90-130); Glucose 118 mg/dL (65-115); Osmolality Calculated 279 mOsm/kg (285-295); Potassium 3.9 mmol/L (3.5-5.1); Sodium 136 mmol/L (136-145); Total Bilirubin 0.5 mg/dL (0.15-1.2); Total Protein 6.8 g/dL (6.6-8.7)
[2020-01-19 19:28] VITALS: PULSE 65; RESP 18; O2SAT 95
[2020-01-19 19:36] VITALS: PULSE 66; RESP 18; O2SAT 95
[2020-01-19] MEDS: dexamethasone 10 mg/mL INJ IVP (19:36)
[2020-01-19 19:38] VITALS: BP 130/69; PULSE 64; RESP 20; O2SAT 95
[2020-01-19 19:45] LABS: ABG PCO2 48.2 mmHg (35-45); ABG PH Result 7.42 (7.35-7.45); Arterial Blood Gas Hematocrit 41.3 % (37-47); Base Excess ABG 5.9 mmol/L (-2.0-2.0); Blood Gas Allen Test Pos; Blood Gas Sample Site Brachial, right; Blood Gas Sample Type Arterial; HCO3 ABG 31.5 mmol/L (22-26); Oxygen Device NC; PO2 ABG 71.1 mmHg (80.0-100.0)
[2020-01-19] MEDS: doxycycline 100 mg Tablet PO (19:55)
[2020-01-19 20:08] LABS: Lactic Sepsis W/Reflex 0.7 mmol/L (0.5-2.2)
[2020-01-19 20:10] VITALS: BP 150/73; PULSE 74; RESP 20; O2SAT 98
[2020-01-19 20:42] LABS: Influenza A by IFA Negative (Negative); Influenza B by IFA Negative (Negative)
== END 2020-01-19 20:10 | disposition home or self-care (01) ==
PROVIDERS: Emergency Provider Nurse Practitioner Family; PCP Nurse Practitioner Family
DX: J44.9 Chronic obstructive pulmonary disease, unspecified (principal); J96.21 Acute and chronic respiratory failure with hypoxia; K21.9 Gastro-esophageal reflux disease without esophagitis; E78.5 Hyperlipidemia, unspecified; I10 Essential (primary) hypertension; F31.81 Bipolar II disorder; G47.33 Obstructive sleep apnea (adult) (pediatric); F17.210 Nicotine dependence, cigarettes, uncomplicated; Z86.711 Personal history of pulmonary embolism
CPT/HCPCS: 12345; 36415; 36600; 71045; 80053; 82803; 83605; 85025; 87040; 87804; 94640; 96374; 96375; 99283; J1100

== ENCOUNTER → 2020-02-15 08:31 | Outpatient (BNVA) | payer MEDICARE, MEDICAID, SELFPAY | PROVIDERS: PCP Nurse Practitioner Family; Visit Provider Nurse Practitioner Psychiatric/Mental Health | DX: F31.81 Bipolar II disorder (principal); F43.12 Post-traumatic stress disorder, chronic; F17.209 Nicotine dependence, unspecified, with unspecified nicotine-induced disorders; J44.9 Chronic obstructive pulmonary disease, unspecified | CPT/HCPCS: 99212 ==

== ENCOUNTER 2020-03-17 10:49 | Outpatient (CLI) | payer MEDICARE, MEDICAID, SELFPAY ==
--- NOTE | 2020-03-17 11:03 | MR_ITS ---
WS: [id number] MRI CERVICAL SPINE NONCONTRAST TECHNIQUE: Sagittal T1, T2 and STIR imaging. Axial T2, gradient, and fiesta imaging. CLINICAL INFORMATION: CERVICAL RADICULOPATHY, CERVICAL PAIN COMPARISON: None. FINDINGS: Some images degraded by motion. Straightening of the normal cervical lordosis. Cord signal is normal. No high-grade central canal joselo nosis. C2-C3: No significant disc bulging. Mild right and no significant left foraminal narrowing. Mild to m oderate facet arthropathy. C3-C4: Minimal disc bulging with osteophytic ridging. Moderate facet arthropathy. Moderate left and m ild right bony foraminal narrowing. Spinal canal is patent. C4-C5: Mild disc osteophyte complex with mild central canal stenosis. Moderate bilateral bony foramin al narrowing with facet arthropathy and uncovertebral joint hypertrophy. This is slightly worse in th e right. C5-C6: Small central disc protrusion. Slight contacts the cervical cord. Moderate left and mild right bony foraminal narrowing. Moderate facet arthropathy. C6-C7: Mild disc osteophyte complex with endplate ridging. Mild left and no significant right foramin al narrowing. Moderate facet arthropathy. C7-T1: No significant disc bulging. Mild left and no right foraminal narrowing. Spinal canal is paten t. Small amount of edema in the left C4-5 articulating facets. Visualized brain stem structures: Normal. Prevertebral soft tissues: Normal. MR/MR cervical spin wo con* [id number] IMPRESSION: 1. Straightening of the normal cervical lordosis. Cord signal is normal. 2. Mild central canal stenosis with small disc osteophyte protrusion at C4-C5 and C5-C6. 3. Moderate bony foraminal narrowing worse at bilateral C4-C5 worse in the rig ht, left C5-C6, and left C6-7. 4. Small amount of edema in the left C4-5 articulating facets consistent with mild synovitis.
== END 2020-03-17 10:50 | disposition home or self-care (01) ==
LOC: RADWPI 10:56
PROVIDERS: PCP Nurse Practitioner Family; Visit Provider Nurse Practitioner Family
DX: M54.2 Cervicalgia (principal); M54.12 Radiculopathy, cervical region; M48.02 Spinal stenosis, cervical region; M25.78 Osteophyte, vertebrae; R60.9 Edema, unspecified
CPT/HCPCS: 72141

== ENCOUNTER → 2020-03-28 07:49 | Outpatient (BNVA) | payer MEDICARE, MEDICAID, SELFPAY | PROVIDERS: PCP Nurse Practitioner Family; Visit Provider Nurse Practitioner Psychiatric/Mental Health | DX: F43.12 Post-traumatic stress disorder, chronic (principal); F17.209 Nicotine dependence, unspecified, with unspecified nicotine-induced disorders; J44.9 Chronic obstructive pulmonary disease, unspecified; F31.81 Bipolar II disorder | CPT/HCPCS: 99212 ==

== ENCOUNTER 2020-05-28 11:15 | Emergency (ER) | payer MEDICARE, MEDICAID, SELFPAY ==
[2020-05-28 11:19] VITALS: BP 121/68; PULSE 69; RESP 16; TEMP 37.1; O2SAT 97; BMI 41.9
--- NOTE | 2020-05-28 11:19 | ECG_ITS ---
[facility] [place] Test Date: 2020-05-28 Pat Name: Tomeka Marshall Department: Room: Gender: Female Casing Inspector: : 1965 Requested By: Jason Ge Order Number: [id number] Umer MD: Eliza Paul M.D. Measurements Intervals [place] Rate: 67 P: 67 AR: 172 QRS: 80 QRSD: 92 T: 76 QT: 408 QTc: 431 Interpretive Statements SINUS RHYTHM Compared to ECG 11/22/2019 07:15:21 No significant changes Electronically Signed On 05-28-2020 12:37:44 CDT by Eliza Paul M.D. [id number]
--- NOTE | 2020-05-28 11:19 | XRR_ITS ---
PROCEDURE INFORMATION: Exam: XR Chest, 1 View Exam date and time: 05/28/2020 11:20 AM Age: 54 years old Clinical indication: Cough and dyspnea; Additional info: Dyspnea/cough TECHNIQUE: Imaging protocol: XR of the chest Views: 1 view. COMPARISON: CR XR chest 1V portable [id number] 01/19/2020 7:26 PM FINDINGS: Lungs: Mild thickening/prominence the interstitial markings. Minimal left basilar atelectasis. Otherwise no focal consolidation. Pleural space: No pleural effusion. No pneumothorax. Heart/Mediastinum: No cardiomegaly. Bones/joints: No acute fracture. XR/XR chest 1V portable [id number] IMPRESSION: Mild interstitial pulmonary edema.
--- NOTE | 2020-05-28 11:22 | ED_ITS ---
HPI - SOB/Dyspnea General: Chief Complaint: Shortness of Breath/Dyspnea Stated Complaint: COPD exac. Time Seen by Provider: 05/28/20 11:17 History of Present Illness: HPI Narrative: 54-year-old female comes in complaining of cough for the last 3 to 4 days very is minimally productive she has a history of COPD normally she is oxygen dependent she tells me she wears 4 L/min by nasal cannula at home she not had a fever she is not had any chest pain she is been using nebulizers at home she does note some relief with that. She had previously had EMS out of her house this morning they treated her with a nebulizer and IV steroids she said she improved and they declined transport she called back because she felt like she was getting worse again. MD elicited complaint: shortness of breath and cough Pertinent past history: COPD Onset (ago): day(s) (2) Context: recent illness Timing: constant Severity: moderate Exacerbating factors: exertion and coughing Associated symptoms: Reports chest congestion and cough; Deny abdominal pain, chest pain, diaphoresis, dizziness, extremity pain, fever(s), hemoptysis, lightheadedness, nausea, orthopnea or palpitations Review of Systems Const: Denies: fever(s) or diaphoresis ENMT: Denies: throat pain, ear or mastoid pain, nasal discharge or nasal congestion Card: Denies: chest pain, palpitations, lightheadedness or orthopnea Resp: Reports: chest congestion; Denies: hemoptysis GI: Denies: abdominal pain or nausea : Denies: flank pain, difficulty voiding, dysuria, urinary frequency or urinary urgency Musc: Denies: extremity pain Skin/Breast: Denies: rash or pruritus Neuro: Denies: dizziness PFSH ED PFSH: Medical History Acute on chronic respiratory failure with hypoxemia Anxiety and depression Bipolar 2 disorder Bipolar mood symptoms are stable on lamotrigine and Cymbalta. Chronic pain Chronic post-traumatic stress disorder (PTSD) Chronic insomnia and sleep impairment problems. No reports of hypervigilance, intrusive thoughts, or problematic flashbacks at this time. COPD (chronic obstructive pulmonary disease) COPD (chronic obstructive pulmonary disease) Chronic COPD. Chronic smoking. She is aware of the risks of cigarette smoking with COPD. COPD (chronic obstructive pulmonary disease) GERD (gastroesophageal reflux disease) Hepatitis C virus infection cured after antiviral drug therapy Hyperlipemia Hypertension Insomnia Obstructive sleep apnea Ovarian cyst Pulmonary emboli Pulmonary embolism Spinal stenosis Tobacco use disorder, continuous She continues to smoke cigarettes on a daily basis and is aware of the risks of cigarette smoking. She is reportedly not taking the Chantix. She has refills from another provider, but is not using the medication. Surgical History H/O section Status post left foot surgery Family History Mother Cancer Breast cancer Social History Smoking and tobacco status: current every day smoker cigarettes Packs smoked per day: 1 Years cigarettes smoked: 30 Quit status (tobacco): considering quitting Second hand smoke exposure: No Alcohol intake: never Last substance use date: 10/26/19 Household members: children Current occupational status: unemployed History of recent travel: No Physical Exam Const: COMMON NORMALS: no acute distress GENERAL APPEARANCE: cooperative and comfortable ORIENTATION/CONSCIOUSNESS: Yes awake, Yes oriented to person, Yes oriented to place and Yes oriented to time HENMT: COMMON NORMALS: normocephalic, atraumatic and hearing grossly normal bilaterally HEAD & SCALP: normocephalic and atraumatic Eye: COMMON NORMALS: Equal, round and reactive pupils present, EOMs intact bilaterally, conjunctivae normal and no scleral icterus CONJUNCTIVA: Yes conjunctivae normal PUPIL: Yes Equal, round and reactive pupils present Neck/C-Spine: COMMON NORMALS: full ROM, no lymphadenopathy, supple and no JVD Lymph: LYMPHATIC: no lymphadenopathy noted and no lymphedema noted Resp: AUSCULTATION: wheezes (moderate) expiratory wheezes and throughout Cardio: COMMON NORMALS: no JVD, regular rate, regular rhythm and No murmurs present (Cardio) RATE: regular rate RHYTHM: regular rhythm GI: COMMON NORMALS: Soft to palpation and No hepatosplenomegaly present AUSCULTATION: Yes normoactive bowel sounds PALPATION: Yes Soft to palpation, No Tenderness to palpation present (GI), No Guarding due to palpation present (GI) and Yes No hepatosplenomegaly present Extremity: COMMON NORMALS: normal to inspection, capillary refill normal, no clubbing, cyanosis or edema, no calf tenderness and no pedal edema Neuro: SENSORIUM/ORIENTATION: Yes oriented to person, Yes oriented to place and Yes oriented to time Skin: COMMON NORMALS: no rashes or lesions noted GENERAL SKIN EXAM: no rashes or lesions noted Course Vital Signs: Vital signs: Vital Signs Temperature 98.7 F 05/28/20 11:19 Pulse Rate 71 05/28/20 12:14 Respiratory Rate 20 H 05/28/20 12:07 Blood Pressure 121/68 05/28/20 11:19 Pulse Oximetry 95 05/28/20 12:07 MDM - SOB/Dyspnea MDM Narrative: Medical decision making narrative: Prolonged ER course ER course due to difficulty obtaining blood. Reviewed findings with the patient at this point I think she needs be admitted she actually was retaining we turned her oxygen down instructed her be better for her to stay in about 2-1/2 L/min and her sats remained stable and she is actually feeling better after the nebulizer. Will discharge her home on a steroid taper doxycycline and albuterol to use PRN follow-up with her primary care doctor in the next 4 to 5 days Lab Data: Labs: Lab Results 05/28/20 05/28/20 05/28/20 Range/Units 11:14 11:14 11:39 WBC 5.8 (4.0-10.0) 10^3/ uL RBC 4.20 (4.1-5.3) 10^6/u L Hgb 12.8 (11.5-15.3) g/dL Hct 39.5 (37.0-47.0) % MCV 94.0 (81-99) fL MCH 30.5 (28.0-34.0) pg MCHC 32.4 (30.0-36.0) g/dL RDW 14.0 (12.1-15.1) % Plt Count 179 (130-400) 10^3/c mm MPV 10.1 (7.4-10.4) fL Neut % (Auto) 82.0 % Lymph % (Auto) 9.5 % [place] % (Auto) 7.8 % Eos % (Auto) 0.2 % Baso % (Auto) 0.3 % Neut # (Auto) 4.76 (1.8-7.7) 10^3/u L Lymph # (Auto) 0.6 L (0.8-4.8) 10^3/u L [place] # (Auto) 0.5 (0.2-0.9) 10^3/u L Eos # (Auto) 0.0 (0.0-0.8) 10^3/u L Baso # (Auto) 0.0 (0.0-0.1) 10^3/u L Nucleated RBC % (a uto) 0 % Nucleated RBCs # 0.0 /100WBC Specimen Type Arterial Sample Site Radial, left ABG pH 7.34 L (7.35-7.45) ABG pCO2 61.1 H* (35-45) mmHg ABG pO2 114.0 H (80.0-100.0) mmH g ABG HCO3 32.6 H (22-26) mmol/L ABG O2 Saturation 98.6 ABG Base Excess 4.9 H (-2.0-2.0) mmol/ L Glenn Test Pos A-a O2 Gradient 9.0 (5-10) mmHg Hematocrit 41.7 (37-47) % Hgb O2 Saturation 93.7 L (95-100) % Carboxyhemoglobin 3.9 (0.4-20.1) %THgb Methemoglobin 1.1 (0.4-1.5) % Total Hemoglobin 13.6 (12-16) g/dL Ionized Calcium 1.3 (1.1-1.4) mmol/L O2 Delivery Device Nc O2 Liters/Min 4.0 % FiO2 36.0 % Database Administration Associate ID glc Sodium 136 137.0 (136-145) mmol/L Potassium 4.5 4.2 (3.5-5.1) mmol/L Chloride 99 (98-107) mmol/L Carbon Dioxide 30 H (22-29) mmol/L Anion Gap 11.5 (5-19) BUN 4 L (6-20) mg/dL Creatinine 0.5 (0.5-0.9) mg/dL GFR Calculation 127.6 (90-130) mL/min Glucose 136 H 142.0 H (65-115) mg/dL Calculated Osmolal ity 280 L (285-295) mOsm/k g Calcium 9.5 (8.5-10.5) mg/dL Total Bilirubin 0.3 (0.15-1.2) mg/dL AST 14 (0-32) U/L ALT 15 (0-33) U/L Alkaline Phosphata se 83 (35-105) IU/L Total Protein 6.1 L (6.6-8.7) g/dL Albumin 4.0 (3.5-5.2) g/dL Globulin 2.1 (1.3-4.6) g/dL Discharge Plan Discharge Patient Disposition: Home Clinical Impression: COPD (chronic obstructive pulmonary disease) Condition: Stable Prescriptions: New Medrol (Wilber) 4 mg tablets,dose pack See Rx Instructions .ROUTE .COMPLEX Qty: 21 RF: 0 doxycycline hyclate 100 mg capsule 100 mg PO BID 10 Days Qty: 20 RF: 0 albuterol sulfate 90 mcg/actuation HFA aerosol inhaler 2 inh INHALATION Q4H PRN (Reason: shortness of breath or wheezing) Qty: 18 RF: 0 No Action modafinil [Provigil] 200 mg tablet 200 mg PO DAILY Qty: 30 RF: 5 (DME) CAM WALKER Qty: 1 RF: 0 levothyroxine 100 mcg capsule 100 mcg PO DAILY RF: 0 Eliquis 5 mg tablet 5 mg PO DAILY RF: 0 duloxetine [Cymbalta] 60 mg capsule,delayed release(DR/EC) 120 mg PO QAM Qty: 60 RF: 1 lamotrigine 100 mg tablet 200 mg PO QAM Qty: 60 RF: 1 trazodone 150 mg tablet 150 mg PO .qhs PRN (Reason: insomnia) Qty: 45 RF: 1 zolpidem [Ambien] 5 mg tablet 5 mg PO BEDTIME PRN (Reason: insomnia) Qty: 30 RF: 1 tramadol 50 mg tablet 50 mg PO BID RF: 0 montelukast 10 mg tablet 10 mg PO DAILY RF: 0 Spiriva with HandiHaler 18 mcg capsule, w/inhalation device 1 cap INHALATION DAILY RF: 0 atorvastatin [Lipitor] 20 mg Tablet 20 mg PO QPM RF: 0 omeprazole 40 mg Capsule,Delayed Release(Dr/Ec) 40 mg PO DAILY RF: 0 metformin 1,000 mg Tablet 1,000 mg PO BID RF: 0 glimepiride 4 mg Tablet 2 mg PO DAILY RF: 0 gabapentin 300 mg Capsule 300 mg PO BID RF: 0 albuterol sulfate [Ventolin HFA] 90 mcg/actuation Hfa Aerosol Inhaler 2 puff INHALATION Q4H PRN (Reason: Shortness Of Breath) RF: 0 albuterol sulfate 2.5 mg /3 mL (0.083 %) solution for nebulization 2.5 mg INHALATION Q4H PRN (Reason: Shortness Of Breath) RF: 0 ipratropium-albuterol 0.5 mg-3 mg(2.5 mg base)/3 mL solution for nebulization 3 ml INHALATION QID Qty: 90 RF: 0 Discharge Orders: Discharge Order (Routine); Ordered 05/28/20 Ordered By: Jason Beaulieu Referrals: Tayler Lan FNP [Primary Care Provider] - Discharge Diet: Usual diet Discharge Activity: Limit activity as instructed Activity Restrictions/Additional Instructions: Checkup with your doctor within 4 to 5 days if you have significant problems return. Coding Level of Care Code ED Tractor Trailer Driver for Parmjit Colin
[2020-05-28 11:49] LABS: ABG PH Result 7.34 (7.35-7.45); Arterial Blood Gas Hematocrit 41.7 % (37-47); Base Excess ABG 4.9 mmol/L (-2.0-2.0); Blood Gas Allen Test Pos; Blood Gas Operator Identificat glc; Blood Gas Sample Site Radial, left; Blood Gas Sample Type Arterial; Carboxyhemoglobin 3.9 %THgb (0.4-20.1); HCO3 ABG 32.6 mmol/L (22-26); HGB O2 Sat 93.7 % (95-100); Ionized Calcium Level - ABG 1.3 mmol/L (1.1-1.4); Methemoglobin 1.1 % (0.4-1.5); Oxygen Device NC; Oxygen Saturation ABG 98.6; Potassium Level - ABG 4.2 mmol/L (3.5-5.0); Total Hemoglobin 13.6 g/dL (12-16)
[2020-05-28 11:50] LABS: ABG PCO2 61.1 mmHg (35-45)
[2020-05-28] MEDS: ipratropium-albuterol 3 mL Neb INHALATION (12:03)
[2020-05-28 12:07] VITALS: PULSE 69; RESP 20; O2SAT 95
[2020-05-28 12:14] VITALS: PULSE 71
[2020-05-28 12:23] LABS: Basophils % 0.3 %; Eosinophils % 0.2 %; Hematocrit 39.5 % (37.0-47.0); Hemoglobin 12.8 g/dL (11.5-15.3); Lymphocytes # 0.6 10^3/uL (0.8-4.8); Lymphocytes % 9.5 %; Mean Corpuscular HGB Conc 32.4 g/dL (30.0-36.0); Mean Corpuscular Hemoglobin 30.5 pg (28.0-34.0); Mean Platelet Volume 10.1 fL (7.4-10.4); Monocytes # 0.5 10^3/uL (0.2-0.9); Monocytes % 7.8 %; Neutrophils # 4.76 10^3/uL (1.8-7.7); Nucleated Red Blood Cells % 0 %; Platelet Count 179 10^3/cmm (130-400); White Blood Count 5.8 10^3/uL (4.0-10.0)
[2020-05-28 12:42] LABS: Alanine Aminotransferase 15 U/L (0-33); Alkaline Phosphatase 83 IU/L (35-105); Anion Gap 11.5 (5-19); Aspartate Amino Transferase 14 U/L (0-32); Blood Urea Nitrogen 4 mg/dL (6-20); Calcium 9.5 mg/dL (8.5-10.5); Carbon Dioxide 30 mmol/L (22-29); Chloride 99 mmol/L (98-107); Globulin 2.1 g/dL (1.3-4.6); Glomerular Filtration Rate 127.6 mL/min (90-130); Glucose 136 mg/dL (65-115); Osmolality Calculated 280 mOsm/kg (285-295); Potassium 4.5 mmol/L (3.5-5.1); Sodium 136 mmol/L (136-145); Total Bilirubin 0.3 mg/dL (0.15-1.2); Total Protein 6.1 g/dL (6.6-8.7)
[2020-05-28 15:03] VITALS: BP 142/79; PULSE 75; RESP 20; TEMP 36.9; O2SAT 95
== END 2020-05-28 15:03 | disposition home or self-care (01) ==
PROVIDERS: Emergency Provider Family Medicine; PCP Nurse Practitioner Family
DX: J44.9 Chronic obstructive pulmonary disease, unspecified (principal); Z79.01 Long term (current) use of anticoagulants; Z99.81 Dependence on supplemental oxygen; Z86.19 Personal history of other infectious and parasitic diseases; E78.5 Hyperlipidemia, unspecified; I10 Essential (primary) hypertension; F17.210 Nicotine dependence, cigarettes, uncomplicated
CPT/HCPCS: 12345; 36415; 36600; 71045; 80051; 80053; 82810; 83986; 85025; 93005; 94640; 96374; 96375; 96376; 99282; 99284; J2930

== ENCOUNTER → 2020-07-04 15:09 | Outpatient (BNVA) | payer OTHER, SELFPAY | PROVIDERS: PCP Nurse Practitioner Family; Visit Provider Nurse Practitioner Psychiatric/Mental Health | DX: F31.81 Bipolar II disorder (principal) | CPT/HCPCS: 80061; 83036 ==

== ENCOUNTER → 2020-07-05 08:30 | Outpatient (BNVA) | payer MEDICARE, MEDICAID, SELFPAY | PROVIDERS: PCP Nurse Practitioner Family; Visit Provider Nurse Practitioner Psychiatric/Mental Health | DX: F31.81 Bipolar II disorder (principal); F43.12 Post-traumatic stress disorder, chronic; J44.9 Chronic obstructive pulmonary disease, unspecified; F17.209 Nicotine dependence, unspecified, with unspecified nicotine-induced disorders | CPT/HCPCS: 99212 ==

== ENCOUNTER 2020-07-15 08:35 | Inpatient (IN) | payer MEDICARE, MEDICAID, SELFPAY ==
[2020-07-05 14:09] VITALS: BP 115/65; BMI 41.0
[2020-07-15] VITALS (14 sets, daily range): BP systolic 118–158; BP diastolic 55–97; PULSE 61–102; RESP 13–31; TEMP 36.9–37.1; O2SAT 88–95; BMI 41.1
--- NOTE | 2020-07-15 08:48 | ECG_ITS ---
[facility] Test Date: 2020-07-15 Pat Name: Tomeka Marshall Department: Room: Gender: Female Emblem Fuser Tender: : 1965 Requested By: Yanely Horan Order Number: [id number] Owusu MD: Loyd Joseph M.D. Measurements Intervals [place] Rate: 75 P: 72 [place]: 166 QRS: 88 QRSD: 102 T: 76 QT: 356 QTc: 398 Interpretive Statements SINUS RHYTHM Compared to ECG 05/28/2020 12:06:25 No significant changes Electronically Signed On 07-15-2020 16:31:34 CDT by Loyd Joseph M.D. [id number]
--- NOTE | 2020-07-15 08:48 | XR_ITS ---
WS: [id number] Portable AP upright chest, 07/15/2020 Clinical Data: sob Comparison: Portable chest, 05/28/2020. Findings: No nodules, masses or effusions are seen. The heart is enlarged. The pulmonary vascularity is not increased. No pneumothorax is seen. Bilateral patchy opacities especially in the lower lobes a re present. These opacities could represent atelectasis or early pneumonia. The upper lobes are clear . Monitor leads are on the chest wall. XR/XR chest 1V portable [id number] Impression: 1. Bilateral lower lobe opacities which could represent atelectasis and/or pneu monia, recommend repeat chest x-ray in one to 2 days. 2. Cardiomegaly.
--- NOTE | 2020-07-15 08:50 | ED_ITS ---
HPI - SOB/Dyspnea General: Chief Complaint: Shortness of Breath/Dyspnea Stated Complaint: SOB Time Seen by Provider: 07/15/20 08:40 Source: patient Mode of arrival: EMS Limitations: no limitations History of Present Illness: HPI Narrative: 54 yo female patient presents to ER with SOB, fever, body aches. Pt states her [facility]home health aid tested postive for COVID. Pt states her sx began saturday but worsened yesterday. Pt has hx of COPD Type 2 DDM. Pt dnes n/v/d. pt denies any urinary sx. pt denies CP. pt denies headache. MD elicited complaint: shortness of breath and cough Pertinent past history: COPD and diabetes Timing: progressively worsening Severity: moderate Exacerbating factors: lying flat, exertion, movement and coughing Relieving factors: oxygen Known history of: COPD Associated symptoms: Reports cough, fever(s) and myalgias; Deny abdominal pain, chest congestion, chest pain, diaphoresis, dizziness, extremity pain, hemoptysis, lightheadedness, nausea, orthopnea, palpitations, paresthesias, polydipsia, polyuria, rash, sense of impending doom, syncope or vomiting Treatment prior to arrival: oxygen Related Data: Home oxygen amount: 3 liters Review of Systems Const: Reports: fever(s); Denies: diaphoresis Eyes: Denies: change in vision or blurry vision ENMT: Denies: throat pain, uvular edema, enlarged tonsils, odynophagia, hoarseness or mouth pain Card: Denies: chest pain, palpitations, lightheadedness, syncope or orthopnea Resp: Reports: dyspnea, non-productive cough and wheezing; Denies: hemoptysis or chest congestion GI: Denies: abdominal pain, nausea or vomiting : Denies: flank pain, difficulty voiding, dysuria, urinary frequency or urinary urgency Musc: Reports: joint pain; Denies: neck pain, back pain, extremity pain, extremity swelling, joint swelling, joint redness, joint warmth or joint stiffness Skin/Breast: Denies: rash, pruritus, erythema or skin pain Neuro: Denies: headache(s), numbness in extremities, weakness in extremities, sensory changes, lack of coordination, difficulty walking, frequent falls, dizziness, vertigo, confusion, behavioral changes, Slurred speech present, difficulty communicating thoughts, seizure-like activity, involuntary movements or restless legs Psych: Denies: anxiety, suicidal ideation or homicidal ideation Endo: Denies: polyuria or polydipsia PFSH ED PFSH: Medical History Acute on chronic respiratory failure with hypoxemia Anxiety and depression Bipolar 2 disorder Chronic pain Chronic post-traumatic stress disorder (PTSD) COPD (chronic obstructive pulmonary disease) COPD (chronic obstructive pulmonary disease) Chronic COPD. Chronic smoking. She is aware of the risks of cigarette smoking with COPD. COPD (chronic obstructive pulmonary disease) GERD (gastroesophageal reflux disease) Hepatitis C virus infection cured after antiviral drug therapy Hyperlipemia Hypertension Insomnia Obstructive sleep apnea Ovarian cyst Pulmonary emboli Pulmonary embolism Spinal stenosis Tobacco use disorder, continuous Surgical History H/O section Status post left foot surgery Family History Mother Cancer Breast cancer Social History Smoking and tobacco status: current every day smoker cigarettes Packs smoked per day: 1 Years cigarettes smoked: 30 Quit status (tobacco): considering quitting Second hand smoke exposure: No Alcohol intake: never Last substance use date: 10/26/19 Household members: children Current occupational status: unemployed History of recent travel: No Physical Exam Const: COMMON NORMALS: patient oriented x3 and alert; apparent distress GENERAL APPEARANCE: cooperative and in distress (mild distress) HENMT: COMMON NORMALS: normocephalic, atraumatic, hearing grossly normal bilaterally, external ears normal and Normal external nose present HEAD & SCALP: normal to inspection, normocephalic and atraumatic FACE & SINUS: normal facial exam NOSE: Normal external nose present and Normal nares present EXTERNAL EAR: Yes external ears normal MOUTH: Normal oral and palatal mucosa present THROAT: posterior oropharynx normal and tonsils normal; no uvular edema Eye: COMMON NORMALS: Equal, round and reactive pupils present, EOMs intact bilaterally, conjunctivae normal, no scleral icterus, no papilledema, normal visual inman by confrontation and fundi normal bilaterally CONJUNCTIVA: Yes conjunctivae normal PUPIL: Yes Equal, round and reactive pupils present DIRECT OPHTHALMOSCOPY: Yes no papilledema and Yes fundi normal bilaterally Neck/C-Spine: COMMON NORMALS: full ROM, no lymphadenopathy, supple, no meningeal signs, no JVD, Thyroid normal and No carotid bruits THYROID: Thyroid normal Lymph: LYMPHATIC: no lymphadenopathy noted Chest: COMMONS NORMALS: normal inspection of the chest and normal palpation of entire chest wall Resp: EFFORT & INSPECTION: No able to speak in complete sentences, No symmetric chest movement, Yes tachypneic, Yes respiratory distress (mild), Yes audible wheezes and No tracheal deviation AUSCULTATION: rhonchi and wheezes Cardio: COMMON NORMALS: no JVD, regular rate, regular rhythm, No gallops present (Cardio), No clicks present (Cardio), No murmurs present (Cardio), No rub (Cardio) and Peripheral pulses 2+ throughout RATE: regular rate RHYTHM: regular rhythm PERIPHERAL PULSES: Peripheral pulses 2+ throughout GI: COMMON NORMALS: Normal to inspection, nondistended, normoactive bowel sounds present, Soft to palpation, non-tender, No hepatosplenomegaly present, no masses and no bruits PALPATION: Yes Soft to palpation and Yes No hepatosplenomegaly present : COMMON NORMALS: Yes no CVA tenderness, Yes normal external appearance, Yes normal appearance of the vagina, Yes normal appearance of the cervix, Yes No adnexal tenderness and Yes no masses BLADDER/KIDNEY EXAM: Yes no CVA tenderness Back/Pelvis: COMMON NORMALS: no CVA tenderness, thoracic and lumbar spine normal to inspection, no thoracic nor lumbar tenderness, thoraco-lumbar ROM normal and straight leg raise negative bilaterally Extremity: COMMON NORMALS: normal to inspection, full ROM, capillary refill normal, no joint enlargement, no clubbing, cyanosis or edema, no calf tenderness and no pedal edema Neuro: COMMON NORMALS: patient oriented x3, CN's II-XII intact bilaterally, moves all extremities, no focal motor deficits, no sensory deficits noted, deep tendon reflexes 2+ bilaterally and gait normal SENSORIUM/ORIENTATION: Yes alert MENINGEAL SIGNS: Yes no meningeal signs Psych: COMMON NORMALS: mental status grossly normal, Normal thought process present, cooperative, normal affect, speech normal, activity/motor behavior normal, denies hallucinations, denies homicidal ideation and denies suicidal ideation SPEECH: Yes normal speech THOUGHT PROCESS: Normal thought process present Skin: COMMON NORMALS: no rashes or lesions noted, no wounds, turgor normal, no jaundice, no petechiae and no mottling GENERAL SKIN EXAM: no rashes or lesions noted and turgor normal Course Vital Signs: Vital signs: Vital Signs Temperature 98.4 F 07/15/20 08:39 Pulse Rate 78 07/15/20 13:53 Respiratory Rate 16 07/15/20 12:52 Blood Pressure 150/79 07/15/20 13:53 Pulse Oximetry 95 07/15/20 13:53 MDM - SOB/Dyspnea MDM Narrative: Medical decision making narrative: Pt is ill appearing non toxic and in mild distress. Pt has hx of COPD and presents with labored breathing. Pts xray reveals [facility] [address] [place] [address] XRay Report Signed Patient: Tomeka Marshall #: [id number] : 1965Acct#:[id number] Age/Sex: 54 / FADM Date: 07/15/20 Loc: ERRoom/Bed: Attending Dr: Ordering Provider/Ordering MD: Yanely Horan NP Date of Service: 07/15/20 Procedure(s): XR chest 1V portable [id number] Accession Number(s): [id number] Report Number: [id number] WS: [id number] Portable AP upright chest, 07/15/2020 Clinical Data: sob Comparison: Portable chest, 05/28/2020. Findings: No nodules, masses or effusions are seen. The heart is enlarged. The pulmonary vascularity is not increased. No pneumothorax is seen. Bilateral p atchy opacities especially in the lower lobes are present. These opacities could represent atelectasis or early pneumonia. The upper lobes are clear. Monitor leads are on the chest wall. XR/XR chest 1V portable [id number] Impression: 1. Bilateral lower lobe opacities which could represent atelectasis and/or pneumonia, recommend repeat chest x-ray in one to 2 days. 2. Cardiomegaly. I will start patient on antibiotics at this time. Pt was given Albuterol inhaler, solu medrol 125 mg and COVID results pending. Given patient PMH and clinical presentation, I will plan on admitting patient at this time. Pt is maintaing her own airway with 3 liters of o2 via NC. Pt was very anxious and was given Ativan 2 mg which she had good clinical improvement with this treatment. Dr. Hankins aware of patient and will request admission. Differential Diagnosis: Shortness of Breath Differential Diagnosis: Likely acute exacerbation of chronic obstructive airways disease, congestive heart failure, community acquired pneumonia, asthma with exacerbation and pulmonary embolism Lab Data: Labs: Lab Results 07/15/20 07/15/20 07/15/20 Range/Units 09:00 09:00 09:00 WBC 10.8 H (4.0-10.0) 10^3/ uL RBC 4.28 (4.1-5.3) 10^6/u L Hgb 13.5 (11.5-15.3) g/dL Hct 40.9 (37.0-47.0) % MCV 95.6 (81-99) fL MCH 31.5 (28.0-34.0) pg MCHC 33.0 (30.0-36.0) g/dL RDW 12.7 (12.1-15.1) % Plt Count 190 (130-400) 10^3/c mm MPV 10.2 (7.4-10.4) fL Neut % (Auto) 80.3 % Lymph % (Auto) 9.7 % [place] % (Auto) 8.6 % Eos % (Auto) 0.6 % Baso % (Auto) 0.5 % Neut # (Auto) 8.65 H (1.8-7.7) 10^3/u L Lymph # (Auto) 1.0 (0.8-4.8) 10^3/u L [place] # (Auto) 0.9 (0.2-0.9) 10^3/u L Eos # (Auto) 0.1 (0.0-0.8) 10^3/u L Baso # (Auto) 0.1 (0.0-0.1) 10^3/u L Nucleated RBC % (a uto) 0 % Nucleated RBCs # 0.0 /100WBC Sodium 131 L (136-145) mmol/L Potassium 4.3 (3.5-5.1) mmol/L Chloride 94 L (98-107) mmol/L Carbon Dioxide 29 (22-29) mmol/L Anion Gap 12.3 (5-19) BUN 6 (6-20) mg/dL Creatinine 0.4 L (0.5-0.9) mg/dL GFR Calculation 165.1 H (90-130) mL/min Glucose 125 H (65-115) mg/dL Calculated Osmolal ity 271 L (285-295) mOsm/k g Lactic Acid 1.1 (0.5-2.2) mmol/L Calcium 9.2 (8.5-10.5) mg/dL Total Bilirubin 0.6 (0.15-1.2) mg/dL AST 15 (0-32) U/L ALT 13 (0-33) U/L Alkaline Phosphata se 90 (35-105) IU/L Total Protein 6.9 (6.6-8.7) g/dL Albumin 4.0 (3.5-5.2) g/dL Globulin 2.9 (1.3-4.6) g/dL SARS-CoV-2 Ag (Rap id) (Negative) 07/15/20 Range/Units 10:55 WBC (4.0-10.0) 10^3/ uL RBC (4.1-5.3) 10^6/u L Hgb (11.5-15.3) g/dL Hct (37.0-47.0) % MCV (81-99) fL MCH (28.0-34.0) pg MCHC (30.0-36.0) g/dL RDW (12.1-15.1) % Plt Count (130-400) 10^3/c mm MPV (7.4-10.4) fL Neut % (Auto) % Lymph % (Auto) % [place] % (Auto) % Eos % (Auto) % Baso % (Auto) % Neut # (Auto) (1.8-7.7) 10^3/u L Lymph # (Auto) (0.8-4.8) 10^3/u L [place] # (Auto) (0.2-0.9) 10^3/u L Eos # (Auto) (0.0-0.8) 10^3/u L Baso # (Auto) (0.0-0.1) 10^3/u L Nucleated RBC % (a uto) % Nucleated RBCs # /100WBC Sodium (136-145) mmol/L Potassium (3.5-5.1) mmol/L Chloride (98-107) mmol/L Carbon Dioxide (22-29) mmol/L Anion Gap (5-19) BUN (6-20) mg/dL Creatinine (0.5-0.9) mg/dL GFR Calculation (90-130) mL/min Glucose (65-115) mg/dL Calculated Osmolal ity (285-295) mOsm/k g Lactic Acid (0.5-2.2) mmol/L Calcium (8.5-10.5) mg/dL Total Bilirubin (0.15-1.2) mg/dL AST (0-32) U/L ALT (0-33) U/L Alkaline Phosphata se (35-105) IU/L Total Protein (6.6-8.7) g/dL Albumin (3.5-5.2) g/dL Globulin (1.3-4.6) g/dL SARS-CoV-2 Ag (Rap id) Negative (Negative) Discharge Plan Discharge Admit Provider: Feng You Coding Level of Care Code ED Service Order Taker for Chg Fwd Exam Comprehensive
[2020-07-15 09:09] LABS: Basophils # 0.1 10^3/uL (0.0-0.1); Basophils % 0.5 %; Eosinophils # 0.1 10^3/uL (0.0-0.8); Eosinophils % 0.6 %; Hematocrit 40.9 % (37.0-47.0); Hemoglobin 13.5 g/dL (11.5-15.3); Lymphocytes % 9.7 %; Mean Corpuscular Hemoglobin 31.5 pg (28.0-34.0); Mean Corpuscular Volume 95.6 fL (81-99); Mean Platelet Volume 10.2 fL (7.4-10.4); Monocytes # 0.9 10^3/uL (0.2-0.9); Monocytes % 8.6 %; Neutrophils # 8.65 10^3/uL (1.8-7.7); Neutrophils % 80.3 %; Nucleated Red Blood Cells % 0 %; Platelet Count 190 10^3/cmm (130-400); Red Blood Count 4.28 10^6/uL (4.1-5.3); Red Cell Distribution Width 12.7 % (12.1-15.1); White Blood Count 10.8 10^3/uL (4.0-10.0)
[2020-07-15 09:29] LABS: Lactic Sepsis W/Reflex 1.1 mmol/L (0.5-2.2)
[2020-07-15 09:30] LABS: Alanine Aminotransferase 13 U/L (0-33); Alkaline Phosphatase 90 IU/L (35-105); Blood Urea Nitrogen 6 mg/dL (6-20); Calcium 9.2 mg/dL (8.5-10.5); Carbon Dioxide 29 mmol/L (22-29); Chloride 94 mmol/L (98-107); Globulin 2.9 g/dL (1.3-4.6); Glomerular Filtration Rate 165.1 mL/min (90-130); Glucose 125 mg/dL (65-115); Osmolality Calculated 271 mOsm/kg (285-295); Sodium 131 mmol/L (136-145); Total Bilirubin 0.6 mg/dL (0.15-1.2); Total Protein 6.9 g/dL (6.6-8.7)
[2020-07-15 09:33] LABS: Anion Gap 12.3 (5-19); Aspartate Amino Transferase 15 U/L (0-32); Potassium 4.3 mmol/L (3.5-5.1)
[2020-07-15] MEDS: azithromycin 500 MG in sodium chloride 0.9% 250 ML 250 MG IV (10:45)
[2020-07-15] MEDS: cefTRIAXone 1,000 MG in sodium chloride 0.9% (plus) 50 ML 100 MG IV (10:45)
[2020-07-15 11:47] LABS: SARS Covid-2 Antigen Negative (Negative)
--- NOTE | 2020-07-15 13:52 | PM.HP ---
Providers/Chief Complaint Primary Care Provider: OSCAR Montoya Chief Complaint: SOB History of Present Illness 54 year old female with a past medical history of COPD, on 3 L nasal cannula, B/L Pulmonary embolism, hypertension, type 2 diabetes mellitus, hepatitis C status post treatment, obstructive sleep apnea, chronic pain, insomnia, hypothyroidism, GERD, anxiety depression, spinal stenosis, who presents to the emergency room due to complaints of shortness of breath and productive cough, fever with chills. Patient states that she is had increased shortness of breath and productive cough for the last 10 Days.she gives h/o no sick contacts, no recent travel. Patient denies any recent hospitalizations, denies any recent antibiotic use, denies any recent steroid use.No complaints of bilateral extremity edema, no paroxysmal nocturnal dyspnea, no orthopnea, no chest pain, no lightheadedness, no dizziness. Rapid COVID testing done in ER is negative. Review of Systems General: Reports: 10 or more systems reviewed and unremarkable except in HPI and below Const: Denies: fever(s), chills, body aches, change in appetite or diaphoresis Card: Denies: palpitations, edema, swelling of feet/ankles, dyspnea on exertion, orthopnea or leg pain with exertion GI: Denies: abdominal pain, nausea, vomiting, diarrhea or constipation : Denies: flank pain Musc: Denies: back pain, extremity pain or extremity swelling Neuro: Denies: headache(s), difficulty walking or confusion Medications/Allergies Home Medications Medication Instructions Recorded Confirmed Last Taken Type atorvastatin [Lipitor] 20 mg PO QPM 10/22/19 07/15/20 05/27/20 History gabapentin 300 mg PO BID 10/22/19 07/15/20 05/27/20 History glimepiride 2 mg PO DAILY 10/22/19 07/15/20 05/27/20 History omeprazole 40 mg PO DAILY 10/22/19 07/15/20 05/27/20 History CAM WALKER #1 ea NS 11/30/19 07/15/20 Unknown Rx apixaban 5 mg tablet 5 mg PO BID tab 02/12/20 07/15/20 05/27/20 History levothyroxine 100 mcg capsule 100 mcg PO DAILY 02/12/20 07/15/20 05/27/20 History lamotrigine 100 mg tablet 200 mg PO QAM #60 tab 03/28/20 07/15/20 05/27/20 Rx albuterol sulfate 2 inh INHALATION Q4H PRN #18 gm 05/28/20 07/15/20 Unknown Rx montelukast 10 mg PO DAILY 05/28/20 07/15/20 05/27/20 History tiotropium bromide [Spiriva with 1 cap INHALATION DAILY 05/28/20 07/15/20 05/27/20 History HandiHaler] tramadol 50 mg PO BID 05/28/20 07/15/20 05/27/20 History modafinil 200 mg tablet 200 mg PO DAILY #30 tab 06/21/20 07/15/20 Unknown Rx duloxetine 60 mg capsule,delayed 120 mg PO QAM #60 cap 07/05/20 07/15/20 Unknown Rx release Abilify 5 mg PO BEDTIME 07/15/20 07/15/20 Unknown History budesonide-formoterol [Symbicort] 2 puff INHALATION BID 07/15/20 07/15/20 Unknown History fluticasone propionate [Flonase 1 spray INTRANASAL BID 07/15/20 07/15/20 Unknown History Allergy Relief] metformin 500 mg PO BID 07/15/20 07/15/20 Unknown History trazodone See Rx Instructions .ROUTE 07/15/20 07/15/20 Unknown History .COMPLEX PRN zolpidem [Ambien] 5 mg PO BEDTIME PRN 07/15/20 07/15/20 Unknown History Allergies Allergy/AdvReac Type Severity Reaction Status Date / Time levofloxacin [From Levaquin] Allergy ADR-Abdominal Verified 07/15/20 08:43 Pain Sulfa (Sulfonamide Allergy ADR-Blurry Verified 07/15/20 08:43 Antibiotics) Vision PFSH Acute PFSH: Medical History Acute on chronic respiratory failure with hypoxemia Anxiety and depression Bipolar 2 disorder Chronic pain Chronic post-traumatic stress disorder (PTSD) COPD (chronic obstructive pulmonary disease) COPD (chronic obstructive pulmonary disease) Chronic COPD. Chronic smoking. She is aware of the risks of cigarette smoking with COPD. COPD (chronic obstructive pulmonary disease) GERD (gastroesophageal reflux disease) Hepatitis C virus infection cured after antiviral drug therapy Hyperlipemia Hypertension Insomnia Obstructive sleep apnea Ovarian cyst Pulmonary emboli Pulmonary embolism Spinal stenosis Tobacco use disorder, continuous Surgical History H/O section Status post left foot surgery Family History Mother Cancer Breast cancer Social History Smoking and tobacco status: current every day smoker cigarettes Packs smoked per day: 1 Years cigarettes smoked: 30 Quit status (tobacco): considering quitting Second hand smoke exposure: No Alcohol intake: never Last substance use date: 10/26/19 Household members: children Current occupational status: unemployed History of recent travel: No Vitals/I&O/Wt Last Vital Signs Temp 98.4 F 07/15/20 08:39 Pulse 80 07/15/20 12:52 Resp 16 07/15/20 12:52 BP 140/76 07/15/20 12:52 Pulse Ox 88 L 07/15/20 12:52 07/14/20 07/15/20 07/15/20 22:59 06:59 14:59 Intake Total 300 / 300 Balance 300 / 300 Weight last 48 hrs Weight 115.666 kg Physical Exam Const: COMMON NORMALS: patient oriented x3 HENMT: COMMON NORMALS: normocephalic, atraumatic, hearing grossly normal bilaterally and external ears normal HEAD & SCALP: normocephalic and atraumatic EXTERNAL EAR: Yes external ears normal Eye: COMMON NORMALS: no scleral icterus GENERAL EYE: appearance normal, both eyes and all related structures Chest: COMMONS NORMALS: normal inspection of the chest and normal palpation of entire chest wall CHEST: Yes Symmetrical chest wall rise Resp: COMMON NORMALS: normal respiratory effort, No retractions, No use of accessory muscles and clear to auscultation bilaterally EFFORT & INSPECTION: Yes symmetric chest movement AUSCULTATION: clear to auscultation bilaterally Cardio: COMMON NORMALS: regular rate, regular rhythm, S1 normal heart sound present, S2 normal heart sound present, No gallops present (Cardio), No murmurs present (Cardio), No rub (Cardio) and Peripheral pulses 2+ throughout RATE: regular rate RHYTHM: regular rhythm HEART SOUNDS: S1 normal heart sound present and S2 normal heart sound present PERIPHERAL PULSES: Peripheral pulses 2+ throughout GI: COMMON NORMALS: Normal to inspection, nondistended, normoactive bowel sounds present, Soft to palpation, non-tender, No hepatosplenomegaly present and no masses AUSCULTATION: Yes normoactive bowel sounds PALPATION: Yes Soft to palpation and Yes No hepatosplenomegaly present RECTAL EXAM: deferred Extremity: COMMON NORMALS: no clubbing, cyanosis or edema and no pedal edema Neuro: COMMON NORMALS: patient oriented x3 Data : 07/15/20 09:00 07/15/20 09:00 Micro: Microbiology 07/15/20 09:02 Blood Culture - Preliminary Blood SPECIMEN COLLECTED 07/15/20 09:00 Blood Culture - Preliminary Blood SPECIMEN COLLECTED CXR: I personally reviewed and interpreted this imaging study as follows: My impression: Bilateral lower lobe patchy infiltrate. Radiologist's impression: . Bilateral lower lobe opacities which could represent atelectasis and/or pneumonia, recommend repeat chest x-ray in one to 2 days. 2. Cardiomegaly. EKG 1: My Interpretation: Normal sinus rhythm Regulatory And Compliance Technician Interpretation: SINUS RHYTHM Compared to ECG 05/28/2020 12:06:25 A&P Assessment and plan (1) Pneumonia: 54 year old female with a past medical history of COPD, on 3 L nasal cannula, B/L Pulmonary embolism, hypertension, type 2 diabetes mellitus, hepatitis C status post treatment, obstructive sleep apnea, chronic pain, insomnia, hypothyroidism, GERD, anxiety depression, spinal stenosis, who presents to the emergency room due to complaints of shortness of breath and productive cough, fever with chills. Xray chest : Bilateral lower lobe opacities which could represent atelectasis and/or pneumonia, recommend repeat chest x-ray in one to 2 days. Continue ceftriaxone and azithromycin. Rapid COVID test is negative; will follow with PTC. Status: Acute (2) COPD (chronic obstructive pulmonary disease): Acute exacerbation of COPD secondary to pneumonia: duo Nebs. Solu-Medrol 60 IV every 24h daily. Status: Chronic (3) Bilateral pulmonary embolism: Continue Eliquis 5 mg every 12 hours daily. Status: Acute (4) Hypothyroidism: Continue levothyroxine 100 mcg daily Status: Acute (5) Obstructive sleep apnea: CPAP at night Status: Acute (6) Hypertension: Currently normotensive. We will continue to monitor the blood pressure. She is currently not on any home medication for blood pressure. Status: Acute (7) Hyperlipidemia: Continue atorvastatin 20 mg p.o. daily. Status: Acute Attestations Medical Necessity Statement*: She needs to be in hospital for the management of pneumonia. Coding Level of Care Code Acute [employer] Consultant for Parmjit Fwd Exam Comprehensive Diagnoses Pneumonia J18.9 COPD (chronic obstructive pulmonary disease) J44.9 Bilateral pulmonary embolism I26.99 Hypothyroidism E03.9 Obstructive sleep apnea G47.33 Hypertension I10 Hyperlipidemia E78.5
--- NOTE | 2020-07-15 13:55 | PC.NURSE ---
pt very anxious earlier and ED provider put orders in for antianxiety meds. nurse in room to round on pt and pt sleeping soundly. antianxiety med not given at this time.
--- NOTE | 2020-07-15 14:24 | PC.RESP ---
Pt ordered svn in emergency room. Provider notified that we would not be able to give that route. Provider told this RT she would order MDI. Order was not written, to my knowledge, until admission orders.
[2020-07-15] MEDS: atorvastatin 40 mg Tablet 20 MG PO (17:32)
[2020-07-15] MEDS: fluticasone nasal spray 16gm Btl 1 SPRAY INTRANASAL (17:33)
[2020-07-15] MEDS: apixaban 5 mg Tablet PO (17:33)
[2020-07-15] MEDS: gabapentin 300 mg Capsule PO (17:33)
[2020-07-15] MEDS: ARIPiprazole 10 mg Tablet 5 MG PO (21:20)
[2020-07-15] MEDS: acetaminophen 325 mg Tablet 650 MG PO (21:20)
[2020-07-16] VITALS (8 sets, daily range): BP systolic 115–140; BP diastolic 63–87; PULSE 50–78; RESP 16–18; TEMP 36.7–37; O2SAT 90–96
[2020-07-16 05:48] LABS: Basophils % 0.1 %; Eosinophils % 0.1 %; Hematocrit 42.8 % (37.0-47.0); Hemoglobin 13.5 g/dL (11.5-15.3); Lymphocytes # 1.7 10^3/uL (0.8-4.8); Lymphocytes % 17.9 %; Mean Corpuscular HGB Conc 31.5 g/dL (30.0-36.0); Mean Corpuscular Hemoglobin 31.2 pg (28.0-34.0); Mean Corpuscular Volume 98.8 fL (81-99); Mean Platelet Volume 10.7 fL (7.4-10.4); Monocytes # 0.9 10^3/uL (0.2-0.9); Monocytes % 9.4 %; Neutrophils % 72.1 %; Nucleated Red Blood Cells % 0 %; Platelet Count 187 10^3/cmm (130-400); Red Blood Count 4.33 10^6/uL (4.1-5.3); Red Cell Distribution Width 12.5 % (12.1-15.1); White Blood Count 9.3 10^3/uL (4.0-10.0)
[2020-07-16] MEDS: duloxetine 60 mg Capsule 120 MG PO (05:56)
[2020-07-16 07:08] LABS: Alanine Aminotransferase 12 U/L (0-33); Albumin Level 3.9 g/dL (3.5-5.2); Alkaline Phosphatase 84 IU/L (35-105); Aspartate Amino Transferase 13 U/L (0-32); Blood Urea Nitrogen 6 mg/dL (6-20); Calcium 9.3 mg/dL (8.5-10.5); Carbon Dioxide 30 mmol/L (22-29); Chloride 99 mmol/L (98-107); Globulin 2.5 g/dL (1.3-4.6); Glomerular Filtration Rate 230.1 mL/min (90-130); Glucose 107 mg/dL (65-115); Osmolality Calculated 280 mOsm/kg (285-295); Sodium 136 mmol/L (136-145); Total Bilirubin 0.5 mg/dL (0.15-1.2); Total Protein 6.4 g/dL (6.6-8.7)
[2020-07-16] MEDS: albuterol 8 gm MDI 1 PUFF INHALATION (08:13)
[2020-07-16] MEDS: pantoprazole DR 40 mg Tablet PO (09:43)
[2020-07-16] MEDS: gabapentin 300 mg Capsule PO ×2 (09:43→18:09)
[2020-07-16] MEDS: montelukast sodium 10 mg Tablet PO (09:43)
[2020-07-16] MEDS: fluticasone nasal spray 16gm Btl 1 SPRAY INTRANASAL ×2 (09:44→18:10)
[2020-07-16] MEDS: apixaban 5 mg Tablet PO ×2 (09:44→18:10)
[2020-07-16] MEDS: levothyroxine 100 mcg Tablet PO (09:44)
[2020-07-16] MEDS: cefTRIAXone 1,000 MG in sodium chloride 0.9% (plus) 50 ML 100 MG IV (09:55)
[2020-07-16] MEDS: azithromycin 500 MG in sodium chloride 0.9% 250 ML 250 MG IV (12:07)
--- NOTE | 2020-07-16 13:17 | P.PN_ITS ---
Subjective Subjective: Interval history: Patient is still complaining of extreme fatigue and shortness of breath. Vitals and labs have been reviewed. Medications: Reviewed: Yes Vitals/I&O/Wt Last Vital Signs Temp 98.2 F 07/16/20 08:00 Pulse 78 07/16/20 08:17 Resp 16 07/16/20 08:15 BP 133/76 07/16/20 08:00 Pulse Ox 95 07/16/20 08:15 07/15/20 07/16/20 07/16/20 22:59 06:59 14:59 Intake Total 720 / 1020 530 / 530 Output Total 250 / 250 450 / 700 300 / 300 Balance -250 / 50 270 / 320 230 / 230 Weight last 48 hrs Weight 115.666 kg Physical Exam Narrative: EXAM NARRATIVE: COMMON NORMALS: patient oriented x3 [facility] COMMON NORMALS: normocephalic, atraumatic, hearing grossly normal bilaterally and external ears normal HEAD & SCALP: normocephalic and atraumatic EXTERNAL EAR: Yes external ears normal Eye COMMON NORMALS: no scleral icterus GENERAL EYE: appearance normal, both eyes and all related structures Chest COMMONS NORMALS: normal inspection of the chest and normal palpation of entire chest wall CHEST: Yes Symmetrical chest wall rise Resp COMMON NORMALS: normal respiratory effort, No retractions, No use of accessory muscles and clear to auscultation bilaterally EFFORT & INSPECTION: Yes symmetric chest movement AUSCULTATION: clear to auscultation bilaterally Cardio COMMON NORMALS: regular rate, regular rhythm, S1 normal heart sound present, S2 normal heart sound present, No gallops present (Cardio), No murmurs present (Cardio), No rub (Cardio) and Peripheral pulses 2+ throughout RATE: regular rate RHYTHM: regular rhythm HEART SOUNDS: S1 normal heart sound present and S2 normal heart sound present PERIPHERAL PULSES: Peripheral pulses 2+ throughout GI COMMON NORMALS: Normal to inspection, nondistended, normoactive bowel sounds present, Soft to palpation, non-tender, No hepatosplenomegaly present and no masses AUSCULTATION: Yes normoactive bowel sounds PALPATION: Yes Soft to palpation and Yes No hepatosplenomegaly present RECTAL EXAM: deferred Extremity COMMON NORMALS: no clubbing, cyanosis or edema and no pedal edema Neuro COMMON NORMALS: patient oriented x3 Data : 07/16/20 05:40 07/16/20 06:32 Micro: Microbiology 07/15/20 09:02 Blood Culture - Preliminary Blood NEGATIVE TO DATE 07/15/20 09:00 Blood Culture - Preliminary Blood NEGATIVE TO DATE A&P Assessment and plan (1) Pneumonia: 54 year old female with a past medical history of COPD, on 3 L nasal cannula, B/L Pulmonary embolism, hypertension, type 2 diabetes mellitus, hepati tis C status post treatment, obstructive sleep apnea, chronic pain, insomnia, hypothyroidism, GERD, anxiety depression, spinal stenosis, who presents to the emergency room due to complaints of shortness of breath and productive cough, fever with chills. Xray chest : Bilateral lower lobe opacities which could represent atelectasis and/or pneumonia, recommend repeat chest x-ray in one to 2 days. Continue ceftriaxone and azithromycin. Rapid COVID test is negative; will follow with PTC. Status: Acute (2) COPD (chronic obstructive pulmonary disease): Acute exacerbation of COPD secondary to pneumonia: duo Nebs. Solu-Medrol 60 IV every 8h daily increased from 60 mg IV every 24 hours daily. Solu-Medrol has been increased as the patient was not moving air and and chest is still tight. Status: Chronic (3) Bilateral pulmonary embolism: Continue Eliquis 5 mg every 12 hours daily. Status: Acute (4) Hypothyroidism: Continue levothyroxine 100 mcg daily Status: Acute (5) Obstructive sleep apnea: CPAP at night Status: Acute (6) Hypertension: Currently normotensive. We will continue to monitor the blood pressure. She is currently not on any home medication for blood pressure. Status: Acute (7) Hyperlipidemia: Continue atorvastatin 20 mg p.o. daily. Status: Acute Attestations Medical Necessity Statement*: Patient needs to be in hospital for management of pneumonia, COPD exacerbation, pending COVID test result. Coding Level of Care Code Acute Public Health Educator for [facility] Fwd Diagnoses Pneumonia J18.9 COPD (chronic obstructive pulmonary disease) J44.9 Bilateral pulmonary embolism I26.99 Hypothyroidism E03.9 Obstructive sleep apnea G47.33 Hypertension I10 Hyperlipidemia E78.5
[2020-07-16] MEDS: atorvastatin 40 mg Tablet 20 MG PO (18:09)
[2020-07-16 19:11] LABS: Coronavirus Lab Test PTC Negative
[2020-07-16] MEDS: ARIPiprazole 10 mg Tablet 5 MG PO (20:34)
[2020-07-17 04:00] VITALS: BP 142/78; PULSE 55; RESP 17; TEMP 36.9; O2SAT 94
[2020-07-17] MEDS: duloxetine 60 mg Capsule 120 MG PO (06:11)
[2020-07-17 07:10] VITALS: BP 171/90; PULSE 55; RESP 17; TEMP 37.1; O2SAT 94
[2020-07-17 07:37] VITALS: BP 171/90; PULSE 55; RESP 17; TEMP 37.1
[2020-07-17] MEDS: pantoprazole DR 40 mg Tablet PO (07:59)
[2020-07-17] MEDS: levothyroxine 100 mcg Tablet PO (07:59)
[2020-07-17] MEDS: fluticasone nasal spray 16gm Btl 1 SPRAY INTRANASAL (07:59)
[2020-07-17] MEDS: gabapentin 300 mg Capsule PO (07:59)
[2020-07-17] MEDS: apixaban 5 mg Tablet PO (07:59)
[2020-07-17] MEDS: montelukast sodium 10 mg Tablet PO (07:59)
[2020-07-17 08:40] VITALS: PULSE 58; RESP 18; O2SAT 93
[2020-07-17] MEDS: cefTRIAXone 1,000 MG in sodium chloride 0.9% (plus) 50 ML 100 MG IV (09:20)
[2020-07-17] MEDS: azithromycin 500 MG in sodium chloride 0.9% 250 ML 250 MG IV (10:07)
[2020-07-17 11:19] VITALS: BP 162/94; PULSE 74; RESP 17; TEMP 36.9; O2SAT 94
[2020-07-17 13:00] VITALS: BP 162/94; PULSE 74; RESP 17; TEMP 36.9; O2SAT 94
--- NOTE | 2020-07-18 12:20 | PC.RESP ---
Smoking Cessation and Pulmonary Rehab packet sent to patient.
--- NOTE | 2020-07-18 12:21 | PC.RESP ---
Smoking Cessation and Pulmonary Rehab packet sent to patient.
== END 2020-07-17 12:30 | disposition home or self-care (01) | DRG 193 ==
LOC: ER 13:24 → MEDSURG 14:00
PROVIDERS: Family Medicine; Registered Nurse; Admitting Provider Internal Medicine; PCP Nurse Practitioner Family; Visit Provider Internal Medicine
DX: J18.9 Pneumonia, unspecified organism (principal); J96.22 Acute and chronic respiratory failure with hypercapnia; J96.21 Acute and chronic respiratory failure with hypoxia; J44.1 Chronic obstructive pulmonary disease with (acute) exacerbation; J44.0 Chronic obstructive pulmonary disease with (acute) lower respiratory infection; G89.29 Other chronic pain; I10 Essential (primary) hypertension; E11.9 Type 2 diabetes mellitus without complications; Z86.19 Personal history of other infectious and parasitic diseases; K21.9 Gastro-esophageal reflux disease without esophagitis; G47.33 Obstructive sleep apnea (adult) (pediatric); E03.9 Hypothyroidism, unspecified; F41.8 Other specified anxiety disorders; G47.00 Insomnia, unspecified; Z79.84 Long term (current) use of oral hypoglycemic drugs; E78.5 Hyperlipidemia, unspecified; M48.00 Spinal stenosis, site unspecified; Z20.828 Contact with and (suspected) exposure to other viral communicable diseases; F17.210 Nicotine dependence, cigarettes, uncomplicated; Z86.711 Personal history of pulmonary embolism
CPT/HCPCS: 12345; 36415; 71045; 80053; 83605; 85025; 87040; 87426; 87635; 93005; 94640; 96375; 99283; J0456; J0696; J2930; J3535; J7050

== ENCOUNTER → 2020-07-27 10:42 | Outpatient (BNVA) | payer BC, MEDICAID, SELFPAY ==
[2020-07-18 17:32] VITALS: BP 115/65; BMI 41.0
--- NOTE | 2020-08-02 07:35 | P.DS_ITS ---
Discharge Providers Date of Admission: Date of Discharge: 07/17/2020 Attending Provider at Admission: Feng You M.D. Attending Provider at Discharge: Feng You MD Primary Care Provider: Tayler Lan, OSCAR Diagnoses at Discharge Discharge Diagnosis (1) Acute on chronic respiratory failure with hypoxia and hypercapnia: Status: Chronic Problem details: (2) Bilateral pulmonary embolism: Status: Inactive (3) Chronic pain: Status: Chronic Reason for Visit Reason for Visit: NARCOLEP Hospital Course Hospital Course: 54 year old female with a past medical history of COPD, on 3 L nasal cannula, B/L Pulmonary embolism, hypertension, type 2 diabetes mellitus, hepatitis C status post treatment, obstructive sleep apnea, chronic pain, insomnia, hypothyroidism, GERD, anxiety depression, spinal stenosis, who presents to the emergency room due to complaints of shortness of breath and productive cough, fever with chills.During this hospital stay she was managed for pneumonia as well as COPD exacerbation 2/2 to pna COVID 19 was ruled out.She received abxs steroids in addition to other supportive measures.At the time of discharge she was at her baseline.She is on 3l oxygen at home and no need for further home oxygen evalutaion of needed.She was discharged home in stable condition to follow her PCP as outpatient. Physical Exam Const: COMMON NORMALS: patient oriented x3 HENMT: COMMON NORMALS: normocephalic, atraumatic, hearing grossly normal bilaterally and external ears normal HEAD & SCALP: normocephalic and atr aumatic EXTERNAL EAR: Yes external ears normal Eye: COMMON NORMALS: no scleral icterus GENERAL EYE: appearance normal, both eyes and all related structures Chest: COMMONS NORMALS: normal inspection of the chest and normal palpation of entire chest wall CHEST: Yes Symmetrical chest wall rise Resp: COMMON NORMALS: normal respiratory effort, No retractions, No use of accessory muscles and clear to auscultation bilaterally EFFORT & INSPECTION: Yes symmetric chest movement AUSCULTATION: clear to auscultation bilaterally Cardio: COMMON NORMALS: regular rate, regular rhythm, S1 normal heart sound present, S2 normal heart sound present, No gallops present (Cardio), No murmurs present (Cardio), No rub (Cardio) and Peripheral pulses 2+ throughout RATE: regular rate RHYTHM: regular rhythm HEART SOUNDS: S1 normal heart sound present and S2 normal heart sound present PERIPHERAL PULSES: Peripheral pulses 2+ throughout GI: COMMON NORMALS: Normal to inspection, nondistended, normoactive bowel sounds present, Soft to palpation, non-tender, No hepatosplenomegaly present and no masses AUSCULTATION: Yes normoactive bowel sounds PALPATION: Yes Soft to palpation and Yes No hepatosplenomegaly present RECTAL EXAM: deferred Extremity: COMMON NORMALS: no clubbing, cyanosis or edema and no pedal edema Neuro: COMMON NORMALS: patient oriented x3 Discharge Plan Discharge Prescriptions: No Action duloxetine [Cymbalta] 60 mg capsule,delayed release(DR/EC) 120 mg PO QAM Qty: 60 RF: 1 (DME) CAM WALKER Qty: 1 RF: 0 levothyroxine 100 mcg capsule 100 mcg PO DAILY RF: 0 Eliquis 5 mg tablet 5 mg PO BID RF: 0 lamotrigine 100 mg tablet 200 mg PO QAM Qty: 60 RF: 1 modafinil [Provigil] 200 mg tablet 200 mg PO DAILY Qty: 30 RF: 5 tramadol 50 mg tablet 50 mg PO BID RF: 0 montelukast 10 mg tablet 10 mg PO DAILY RF: 0 Spiriva with HandiHaler 18 mcg capsule, w/inhalation device 1 cap INHALATION DAILY RF: 0 albuterol sulfate 90 mcg/actuation HFA aerosol inhaler 2 inh INHALATION Q4H PRN (Reason: shortness of breath or wheezing) Qty: 18 RF: 0 metformin 500 mg tablet 500 mg PO BID RF: 0 Ambien 5 mg Tablet 5 mg PO BEDTIME PRN (Reason: Sleep) RF: 0 Flonase Allergy Relief 50 mcg/actuation Leopold,Suspension 1 spray INTRANASAL BID RF: 0 Symbicort 160-4.5 mcg/actuation HFA aerosol inhaler 2 puff INHALATION BID RF: 0 trazodone 150 mg tablet See Rx Instructions .ROUTE .COMPLEX PRN (Reason: insomnia) RF: 0 Abilify 5 mg tablet 5 mg PO BEDTIME RF: 0 Medrol (Wilber) 4 mg tablets,dose pack See Rx Instructions .ROUTE .COMPLEX Qty: 21 RF: 0 atorvastatin [Lipitor] 20 mg Tablet 20 mg PO QPM RF: 0 omeprazole 40 mg Capsule,Delayed Release(Dr/Ec) 40 mg PO DAILY RF: 0 glimepiride 4 mg Tablet 2 mg PO DAILY RF: 0 gabapentin 300 mg Capsule 300 mg PO BID RF: 0 Discharge Attestations Time Spent in Discharge Care*: greater than 30 min Specific Discharge Activities: Specific discharge activities: educating patient, educating and/or supporting family/caregiver, discussing with pcp/other providers, discussing with case resolution specialist/social workers/dc planners, documenting/other paperwork and evaluating patient/reviewing data Status at Discharge: Cognitive status at discharge: cognitively intact , Behavioral status at discharge: cooperative , Quality Metrics Clinical Quality Measures During this hospital stay, did patient experience: None Coding Level of Care Code Acute Time Checker for [facility] Fwd Diagnoses Acute on chronic respiratory failure with hypoxia and hypercapnia J96.21; J96.22 Bilateral pulmonary embolism I26.99 Chronic pain G89.29
== END ==
PROVIDERS: PCP Nurse Practitioner Family; Visit Provider Specialist
DX: G47.419 Narcolepsy without cataplexy (principal)
CPT/HCPCS: 12345; G0463

== ENCOUNTER → 2020-08-02 08:01 | Outpatient (BNVA) | payer BC, MEDICAID, SELFPAY ==
[2020-07-18 17:32] VITALS: BP 115/65; BMI 41.0
== END ==
PROVIDERS: PCP Nurse Practitioner Family; Visit Provider Nurse Practitioner Psychiatric/Mental Health
DX: F31.81 Bipolar II disorder (principal); F43.12 Post-traumatic stress disorder, chronic; J44.9 Chronic obstructive pulmonary disease, unspecified; F33.2 Major depressive disorder, recurrent severe without psychotic features
CPT/HCPCS: 99212

== ENCOUNTER 2020-08-05 15:28 | Emergency (ER) | payer MEDICARE, MEDICAID, SELFPAY ==
[2020-07-18 17:32] VITALS: BP 115/65; BMI 41.0
[2020-08-05 16:13] VITALS: BP 136/86; PULSE 78; RESP 16; TEMP 36.9; O2SAT 92; BMI 41.1
--- NOTE | 2020-08-05 17:19 | ED_ITS ---
HPI - Back Pain/Injury General: Chief Complaint: Back Pain/Injury Stated Complaint: LOWER BACK PAIN Time Seen by Provider: 08/05/20 17:18 Source: patient Mode of arrival: ambulatory Limitations: no limitations History of Present Illness: HPI Narrative: Patient comes in today with complaints of low back pain. Patient reports bilateral lumbar paraspinous muscle pain. Patient reports last time she had back pain like this it was 10 years ago. Patient denies any falls or injury. Patient does have a history of COPD pulmonary embolism hypothyroidism diabetes mellitus GERD. Review of Systems General: Reports: 10 or more systems reviewed and unremarkable except in HPI a nd below Musc: Reports: back pain PFSH ED PFSH: Medical History (Updated 08/05/20 @ 18:05 by OSCAR Sequeira) Acute on chronic respiratory failure with hypoxemia Anxiety and depression Bilateral pulmonary embolism Bipolar 2 disorder Chronic pain Chronic post-traumatic stress disorder (PTSD) COPD (chronic obstructive pulmonary disease) COPD (chronic obstructive pulmonary disease) Chronic COPD. Chronic smoking. She is aware of the risks of cigarette smoking with COPD. COPD (chronic obstructive pulmonary disease) COPD (chronic obstructive pulmonary disease) GERD (gastroesophageal reflux disease) Hepatitis C virus infection cured after antiviral drug therapy Hyperlipemia Hyperlipidemia Hypertension Hypertension Hypothyroidism Insomnia Obstructive sleep apnea Ovarian cyst Pneumonia Pulmonary emboli Pulmonary embolism Spinal stenosis Tobacco use disorder, continuous Surgical History H/O section Status post left foot surgery Family History Mother Cancer Breast cancer Social History (Updated 08/05/20 @ 16:17 by Bernardo Heard RN) Smoking and tobacco status: current every day smoker cigarettes Packs smoked per day: 1 Years cigarettes smoked: 30 Quit status (tobacco): considering quitting Second hand smoke exposure: No Alcohol intake: never Counseling given: No Substance/Drug Use: never Last substance use date: 10/26/19 Household members: children Current occupational status: unemployed History of recent travel: No Physical Exam Const: COMMON NORMALS: no acute distress and patient oriented x3 GENERAL APPEARANCE: cooperative HENMT: COMMON NORMALS: normocephalic, TM's normal bilaterally and Normal external nose present HEAD & SCALP: normal to inspection and normocephalic NOSE: Normal external nose present TYMPANIC MEMBRANE: TM's normal bilaterally MOUTH: Normal oral and palatal mucosa present THROAT: posterior oropharynx normal Eye: GENERAL EYE: appearance normal, both eyes and all related structures Neck/C-Spine: COMMON NORMALS: full ROM Lymph: LYMPHATIC: no lymphadenopathy noted Chest: COMMONS NORMALS: normal inspection of the chest Resp: COMMON NORMALS: normal respiratory effort EFFORT & INSPECTION: Yes able to speak in complete sentences Cardio: COMMON NORMALS: regular rate and regular rhythm RATE: regular rate RHYTHM: regular rhythm GI: COMMON NORMALS: non-tender : COMMON NORMALS: Yes no CVA tenderness BLADDER/KIDNEY EXAM: Yes no CVA tenderness Back/Pelvis: COMMON NORMALS: no CVA tenderness LUMBAR SPINE/LOWER BACK: Yes paraspinal muscle tenderness Lumbar paraspinal muscle tenderness: bilateral Extremity: COMMON NORMALS: normal to inspection Neuro: COMMON NORMALS: patient oriented x3 and moves all extremities Psych: COMMON NORMALS: mental status grossly normal and cooperative Skin: COMMON NORMALS: no rashes or lesions noted GENERAL SKIN EXAM: no rashes or lesions noted Course Vital Signs: Vital signs: Vital Signs Temperature 98.5 F 08/05/20 16:13 Pulse Rate 78 08/05/20 16:13 Respiratory Rate 16 08/05/20 16:13 Blood Pressure 136/86 08/05/20 16:13 Pulse Oximetry 92 08/05/20 16:13 MDM - Back Pain/Injury MDM Narrative: Medical decision making narrative: 54-year-old female comes in today with low back pain. Patient reports pain with movement. Patient denies any urinary difficulty or bowel or bladder difficulty. Patient denies any fever. Exam notes muscle tenderness of the low back. Mild L5-S1 area vertebral tenderness. Differential diagnosis includes but not limited to intervertebral disc disease, lumbar radiculopathy, facet arthropathy. Reviewed exam with patient with recommendations for treatment and follow-up. Patient refused x-ray of the lumbar spine. Patient be treated for acute pain of the low back. Recommended follow-up with primary care for further treatment and evaluation. Patient reported understanding of care plan and need for follow-up. Discharge Plan Discharge Patient Disposition: Home Clinical Impression: Lumbar radiculopathy Condition: Stable Prescriptions: New hydrocodone-acetaminophen 5-325 mg tablet 1 tab PO Q6H PRN (Reason: pain) Qty: 12 RF: 0 No Action duloxetine [Cymbalta] 60 mg capsule,delayed release(DR/EC) 120 mg PO QAM Qty: 60 RF: 1 (DME) CALE WALKER Qty: 1 RF: 0 levothyroxine 100 mcg capsule 100 mcg PO DAILY RF: 0 Eliquis 5 mg tablet 5 mg PO BID RF: 0 Abilify 5 mg tablet 5 mg PO .q evening Qty: 30 RF: 0 modafinil [Provigil] 200 mg tablet 200 mg PO DAILY Qty: 30 RF: 5 tramadol 50 mg tablet 50 mg PO BID RF: 0 montelukast 10 mg tablet 10 mg PO DAILY RF: 0 Spiriva with HandiHaler 18 mcg capsule, w/inhalation device 1 cap INHALATION DAILY RF: 0 albuterol sulfate 90 mcg/actuation HFA aerosol inhaler 2 inh INHALATION Q4H PRN (Reason: shortness of breath or wheezing) Qty: 18 RF: 0 metformin 500 mg tablet 500 mg PO BID RF: 0 Flonase Allergy Relief 50 mcg/actuation Ebony,Suspension 1 spray INTRANASAL BID RF: 0 Symbicort 160-4.5 mcg/actuation HFA aerosol inhaler 2 puff INHALATION BID RF: 0 trazodone 150 mg tablet See Rx Instructions .ROUTE .COMPLEX PRN (Reason: insomnia) RF: 0 Medrol (Wilber) 4 mg tablets,dose pack See Rx Instructions .ROUTE .COMPLEX Qty: 21 RF: 0 atorvastatin [Lipitor] 20 mg Tablet 20 mg PO QPM RF: 0 omeprazole 40 mg Capsule,Delayed Release(Dr/Ec) 40 mg PO DAILY RF: 0 glimepiride 4 mg Tablet 2 mg PO DAILY RF: 0 gabapentin 300 mg Capsule 300 mg PO BID RF: 0 Discharge Orders: Discharge Order (Routine); Ordered 08/05/20 Ordered By: Jeremy Oro Referrals: Tayler Lan FNP [Primary Care Provider] - Discharge Diet: Usual diet Discharge Activity: Increase activity as tolerated Patient Instructions: Acute Low Back Pain (ED) Activity Restrictions/Additional Instructions: Activity as tolerated, gentle stretching and range of motion exercise. Follow-up with primary care in 5 days for recheck. Monitor for fever or worsening symptoms. Return to ER for new concerns Coding Level of Care Code ED [employer] Foreign Language Tutor for [employer] Fwd Exam Comprehensive
[2020-08-05] MEDS: orphenadrine 30 mg/mL Inj 2 mL 60 MG IM (17:44)
[2020-08-05] MEDS: ketorolac 30 mg/mL INJ IM (17:45)
[2020-08-05 18:46] VITALS: PULSE 73; RESP 20; O2SAT 99
== END 2020-08-05 19:15 | disposition home or self-care (01) ==
PROVIDERS: Emergency Provider Nurse Practitioner Family; PCP Nurse Practitioner Family
DX: M54.16 Radiculopathy, lumbar region (principal); Z79.01 Long term (current) use of anticoagulants; Z79.84 Long term (current) use of oral hypoglycemic drugs; J44.9 Chronic obstructive pulmonary disease, unspecified; Z86.19 Personal history of other infectious and parasitic diseases; E78.5 Hyperlipidemia, unspecified; I10 Essential (primary) hypertension; F17.210 Nicotine dependence, cigarettes, uncomplicated
CPT/HCPCS: 12345; 96372; 99281; 99283; J1885; J2360

== ENCOUNTER 2020-08-10 12:54 | Emergency (ER) | payer MEDICARE, MEDICAID, SELFPAY ==
[2020-07-18 17:32] VITALS: BP 115/65; BMI 41.0
[2020-08-10 13:05] VITALS: BP 140/90; PULSE 85; RESP 24; TEMP 36.4; O2SAT 93; BMI 40.3
--- NOTE | 2020-08-10 15:00 | XRR_ITS ---
PROCEDURE INFORMATION: Exam: XR Left Ribs with PA Chest, 3 Views Exam date and time: 08/10/2020 3:02 PM Age: 54 years old Clinical indication: Other: SOB, cough; Chest wall pain; Left; Additional info: Cough, SOB, leftt posterior rib pain TECHNIQUE: Imaging protocol: XR Left ribs 3 views with PA chest. COMPARISON: CR XR chest 1V portable [id number] 07/15/2020 9:06 AM FINDINGS: Lungs: Unremarkable. No consolidation. Pleural space: Unremarkable. No pleural effusion. No pneumothorax. Heart/Mediastinum: Unremarkable. No cardiomegaly. Bones/joints: Unremarkable. XR/XR ribs LT mn 3V w CXR1V [id number] IMPRESSION: No acute findings.
--- NOTE | 2020-08-10 15:02 | W.ED.SOB ---
HPI - SOB/Dyspnea General: Chief Complaint: Shortness of Breath/Dyspnea Stated Complaint: SOB, Back Pain Time Seen by Provider: 08/10/20 14:24 Source: patient Mode of arrival: ambulatory Limitations: no limitations History of Present Illness: HPI Narrative: Patient is a 54-year-old female patient with a history of COPD, on home oxygen who presents to the emergency department with complaints of cough and shortness of breath. She says she has been coughing so hard she thinks she may have broken a rib she has pain in her posterior ribs. She is also having increased shortness of breath. She was recently treated for pneumonia. No fever, no sputum production. Symptoms have been ongoing for about 1 week MD elicited complaint: shortness of breath and cough Pertinent past history: COPD Onset (ago): week(s) (1) Context: recent illness Timing: constant Severity: moderate Associated symptoms: Reports cough; Deny abdominal pain, chest congestion, chest pain, diaphoresis, dizziness, extremity pain, fever(s), hemoptysis, lightheadedness, myalgias, nausea, orthopnea, palpitations, paresthesias, polydipsia, polyuria, rash, sense of impending doom, syncope or vomiting Treatment prior to arrival: oxygen and bronchodilator Review of Systems General: Reports: 10 or more systems reviewed and unremarkable except in HPI and below Const: Denies: fever(s) or diaphoresis Eyes: Denies: change in vision or blurry vision ENMT: Denies: throat pain, enlarged tonsils, odynophagia, hoarseness, mouth pain or swelling of lips/tongue Card: Denies: chest pain, palpitations, lightheadedness, syncope or orthopnea Resp: Denies: hemoptysis or chest congestion GI: Denies: abdominal pain, nausea or vomiting : Denies: flank pain, difficulty voiding, dysuria, urinary frequency, urinary urgency or urinary hesitancy Musc: Denies: extremity pain Skin/Breast: Denies: rash, pruritus or erythema Neuro: Denies: dizziness Endo: Denies: polyuria or polydipsia PFS ED PFSH: Medical History Acute on chronic respiratory failure with hypoxemia Anxiety and depression Bilateral pulmonary embolism Bipolar 2 disorder Chronic pain Chronic post-traumatic stress disorder (PTSD) COPD (chronic obstructive pulmonary disease) COPD (chronic obstructive pulmonary disease) Chronic COPD. Chronic smoking. She is aware of the risks of cigarette smoking with COPD. COPD (chronic obstructive pulmonary disease) COPD (chronic obstructive pulmonary disease) GERD (gastroesophageal reflux disease) Hepatitis C virus infection cured after antiviral drug therapy Hyperlipemia Hyperlipidemia Hypertension Hypertension Hypothyroidism Insomnia Obstructive sleep apnea Ovarian cyst Pneumonia Pulmonary emboli Pulmonary embolism Spinal stenosis Tobacco use disorder, continuous Surgical History H/O section Status post left foot surgery Family History Mother Cancer Breast cancer Social History Smoking and tobacco status: current every day smoker cigarettes Packs smoked per day: 1 Years cigarettes smoked: 30 Quit status (tobacco): considering quitting Second hand smoke exposure: No Alcohol intake: never Counseling given: No Last substance use date: 10/26/19 Household members: children Current occupational status: unemployed History of recent travel: No Physical Exam Const: COMMON NORMALS: no acute distress, average body habitus, patient oriented x3, no limitations, healthy appearing, alert and well nourished HENMT: COMMON NORMALS: normocephalic, atraumatic and moist oral mucous membranes HEAD & SCALP: normocephalic and atraumatic Eye: COMMON NORMALS: Equal, round and reactive pupils present, EOMs intact bilaterally, conjunctivae normal and no scleral icterus CONJUNCTIVA: Yes conjunctivae normal PUPIL: Yes Equal, round and reactive pupils present Neck/C-Spine: COMMON NORMALS: no meningeal signs and no JVD Chest: COMMONS NORMALS: normal inspection of the chest CHEST: Yes tenderness (Left posterior rib) Resp: COMMON NORMALS: normal respiratory effort, No retractions, No use of accessory muscles and percussion normal AUSCULTATION: wheezes and diminished lung sounds PERCUSSION: percussion normal Cardio: COMMON NORMALS: no JVD, regular rate, regular rhythm, S1 normal heart sound present, S2 normal heart sound present, No gallops present (Cardio), No clicks present (Cardio), No murmurs present (Cardio), No rub (Cardio) and Peripheral pulses 2+ throughout RATE: regular rate RHYTHM: regular rhythm HEART SOUNDS: S1 normal heart sound present and S2 normal heart sound present PERIPHERAL PULSES: Peripheral pulses 2+ throughout GI: COMMON NORMALS: Normal to inspection, nondistended, normoactive bowel sounds present, Soft to palpation, non-tender, No hepatosplenomegaly present, no masses and no bruits PALPATION: Yes Soft to palpation and Yes No hepatosplenomegaly present Extremity: COMMON NORMALS: normal to inspection, full ROM, capillary refill normal, no calf tenderness and no pedal edema Neuro: COMMON NORMALS: patient oriented x3 SENSORIUM/ORIENTATION: Yes alert MENINGEAL SIGNS: Yes no meningeal signs Skin: COMMON NORMALS: no rashes or lesions noted, no wounds, turgor normal, no jaundice, no petechiae and no mottling GENERAL SKIN EXAM: no rashes or lesions noted and turgor normal Course Reevaluation(s): Reevaluation #1: Discussed her lab and imaging findings with her. X-ray negative for acute findings. Negative Covid testing, other labs unremarkable. Because of her examination findings and the history we will treat as a case of a COPD exacerbation. She voiced understanding and is in agreement with the plan for oral antibiotic and steroids. Time: 17:44 Vital Signs: Vital signs: Vital Signs Temperature 98.7 F 08/10/20 18:06 Pulse Rate 78 08/10/20 18:06 Respiratory Rate 20 H 08/10/20 18:06 Blood Pressure 142/91 08/10/20 18:06 Pulse Oximetry 96 08/10/20 18:06 MDM - SOB/Dyspnea MDM Narrative: Medical decision making narrative: 54-year-old female patient with a history of COPD presents to the emergency department with worsening shortness of breath, cough. Evaluation in the emergency department was unremarkable, however given her lung findings of expiratory wheezes on her symptoms she is being managed as a case of COPD exacerbation. Differential Diagnosis: Shortness of Breath Differential Diagnosis: Likely acute exacerbation of chronic obstructive airways disease, congestive heart failure and community acquired pneumonia Medical Records: Attestation: I reviewed the patient's medical records. Lab Data: Attestation: I reviewed the patient's lab results. Labs: Lab Results 08/10/20 08/10/20 08/10/20 Range/Units 14:35 14:35 14:35 WBC 6.1 (4.0-10.0) 10^3/ uL RBC 4.72 (4.1-5.3) 10^6/u L Hgb 14.5 (11.5-15.3) g/dL Hct 46.4 (37.0-47.0) % MCV 98.3 (81-99) fL MCH 30.7 (28.0-34.0) pg MCHC 31.3 (30.0-36.0) g/dL RDW 12.6 (12.1-15.1) % Plt Count 193 (130-400) 10^3/c mm MPV 10.3 (7.4-10.4) fL Neut % (Auto) 61.7 % Lymph % (Auto) 25.6 % Irwin % (Auto) 8.6 % Eos % (Auto) 3.1 % Baso % (Auto) 0.7 % Neut # (Auto) 3.74 (1.8-7.7) 10^3/u L Lymph # (Auto) 1.6 (0.8-4.8) 10^3/u L Irwin # (Auto) 0.5 (0.2-0.9) 10^3/u L Eos # (Auto) 0.2 (0.0-0.8) 10^3/u L Baso # (Auto) 0.0 (0.0-0.1) 10^3/u L Nucleated RBC % (a uto) 0 % Nucleated RBCs # 0.0 /100WBC D-Dimer 0.86 H (0-0.59) ug/mIFE U Sodium 136 (136-145) mmol/L Potassium 4.1 (3.5-5.1) mmol/L Chloride 99 (98-107) mmol/L Carbon Dioxide 31 H (22-29) mmol/L Anion Gap 10.1 (5-19) BUN 4 L (6-20) mg/dL Creatinine 0.6 (0.5-0.9) mg/dL GFR Calculation 103.4 (90-130) mL/min Glucose 129 H (65-115) mg/dL Calculated Osmolal ity 281 L (285-295) mOsm/k g Calcium 9.2 (8.5-10.5) mg/dL Total Bilirubin 0.3 (0.15-1.2) mg/dL AST 11 (0-32) U/L ALT 14 (0-33) U/L Alkaline Phosphata se 117 H (35-105) IU/L Total Protein 6.4 L (6.6-8.7) g/dL Albumin 3.9 (3.5-5.2) g/dL Globulin 2.5 (1.3-4.6) g/dL Influenza Type A A g (Negative) Influenza Type B A g (Negative) SARS-CoV-2 Ag (Rap id) (Negative) 08/10/20 08/10/20 Range/Units 17:05 17:05 WBC (4.0-10.0) 10^3/ uL RBC (4.1-5.3) 10^6/u L Hgb (11.5-15.3) g/dL Hct (37.0-47.0) % MCV (81-99) fL MCH (28.0-34.0) pg MCHC (30.0-36.0) g/dL RDW (12.1-15.1) % Plt Count (130-400) 10^3/c mm MPV (7.4-10.4) fL Neut % (Auto) % Lymph % (Auto) % Irwin % (Auto) % Eos % (Auto) % Baso % (Auto) % Neut # (Auto) (1.8-7.7) 10^3/u L Lymph # (Auto) (0.8-4.8) 10^3/u L Irwin # (Auto) (0.2-0.9) 10^3/u L Eos # (Auto) (0.0-0.8) 10^3/u L Baso # (Auto) (0.0-0.1) 10^3/u L Nucleated RBC % (a uto) % Nucleated RBCs # /100WBC D-Dimer (0-0.59) ug/mIFE U Sodium (136-145) mmol/L Potassium (3.5-5.1) mmol/L Chloride (98-107) mmol/L Carbon Dioxide (22-29) mmol/L Anion Gap (5-19) BUN (6-20) mg/dL Creatinine (0.5-0.9) mg/dL GFR Calculation (90-130) mL/min Glucose (65-115) mg/dL Calculated Osmolal ity (285-295) mOsm/k g Calcium (8.5-10.5) mg/dL Total Bilirubin (0.15-1.2) mg/dL AST (0-32) U/L ALT (0-33) U/L Alkaline Phosphata se (35-105) IU/L Total Protein (6.6-8.7) g/dL Albumin (3.5-5.2) g/dL Globulin (1.3-4.6) g/dL Influenza Type A A g Negative (Negative) Influenza Type B A g Negative (Negative) SARS-CoV-2 Ag (Rap id) Negative (Negative) Imaging Data^: CXR: Attestation: I personally reviewed and interpreted this imaging study as follows: Radiologist's impression: [place] [address] XRay Report Signed Patient: Tomeka Marshall #: [id number] : 1965Acct#:[id number] Age/Sex: 54 / FADM Date: 08/10/20 Loc: ERRoom/Bed: Attending Dr: Ordering Provider/Ordering MD: Lou Oliveira MD, [facility] [place] Date of Service: 08/10/20 Procedure(s): XR ribs LT mn 3V w CXR1V 40612 Accession Number(s): [id number] Report Number: [id number] PROCEDURE INFORMATION: Exam: XR Left Ribs with PA Chest, 3 Views Exam date and time: 08/10/2020 3:02 PM Age: 54 years old Clinical indication: Other: SOB, cough; Chest wall pain; Left; Additional info: Cough, SOB, leftt posterior rib pain TECHNIQUE: Imaging protocol: XR Left ribs 3 views with PA chest. COMPARISON: CR XR chest 1V portable [id number] 07/15/2020 9:06 AM FINDINGS: Lungs: Unremarkable. No consolidation. Pleural space: Unremarkable. No pleural effusion. No pneumothorax. Heart/Mediastinum: Unremarkable. No cardiomegaly. Bones/joints: Unremarkable. XR/XR ribs LT mn 3V w CXR1V [id number] IMPRESSION: No acute findings. Dictated By:Roberto Garcia Signed By:Omid Garcia Date/Time:08/10/20 1601 DD/ 1600 Discharge Plan Discharge Patient Disposition: Home Clinical Impression: Acute exacerbation of chronic obstructive pulmonary disease Condition: Stable Prescriptions: New azithromycin 250 mg tablet See Rx Instructions .ROUTE .COMPLEX Qty: 6 RF: 0 prednisone 20 mg tablet 60 mg PO DAILY 5 Days Qty: 15 RF: 0 Continued duloxetine [Cymbalta] 60 mg capsule,delayed release(DR/EC) 120 mg PO QAM Qty: 60 RF: 1 (DME) CAM WALKER Qty: 1 RF: 0 levothyroxine 100 mcg capsule 100 mcg PO DAILY RF: 0 Eliquis 5 mg tablet 5 mg PO BID RF: 0 Abilify 5 mg tablet 5 mg PO .q evening Qty: 30 RF: 0 modafinil [Provigil] 200 mg tablet 200 mg PO DAILY Qty: 30 RF: 5 tramadol 50 mg tablet 50 mg PO BID RF: 0 montelukast 10 mg tablet 10 mg PO DAILY RF: 0 Spiriva with HandiHaler 18 mcg capsule, w/inhalation device 1 cap INHALATION DAILY RF: 0 albuterol sulfate 90 mcg/actuation HFA aerosol inhaler 2 inh INHALATION Q4H PRN (Reason: shortness of breath or wheezing) Qty: 18 RF: 0 metformin 500 mg tablet 500 mg PO BID RF: 0 Flonase Allergy Relief 50 mcg/actuation Dyer,Suspension 1 spray INTRANASAL BID RF: 0 Symbicort 160-4.5 mcg/actuation HFA aerosol inhaler 2 puff INHALATION BID RF: 0 trazodone 150 mg tablet See Rx Instructions .ROUTE .COMPLEX PRN (Reason: insomnia) RF: 0 atorvastatin [Lipitor] 20 mg Tablet 20 mg PO QPM RF: 0 omeprazole 40 mg Capsule,Delayed Release(Dr/Ec) 40 mg PO DAILY RF: 0 glimepiride 4 mg Tablet 2 mg PO DAILY RF: 0 gabapentin 300 mg Capsule 300 mg PO BID RF: 0 hydrocodone-acetaminophen 5-325 mg tablet 1 tab PO Q6H PRN (Reason: pain) Qty: 12 RF: 0 Discontinued methylprednisolone [Medrol (Wilber)] 4 mg tablets,dose pack See Rx Instructions .ROUTE .COMPLEX Qty: 21 RF: 0 Discharge Orders: Discharge Order (Routine); Ordered 08/10/20 Ordered By: Lou Oliveira Referrals: Tayler Lan FNP [Primary Care Provider] - 1-3 days Discharge Diet: Usual diet Discharge Activity: Increase activity as tolerated Patient Instructions: Chronic Obstructive Pulmonary Disease (ED) Activity Restrictions/Additional Instructions: Return for any new or worsening symptoms. Take the medications as prescribed. Use your albuterol nebulizer every 4 hours for the next 2 days, then use it as needed thereafter. Follow-up with your primary care provider within 3 days. Discharge Date/Time: 08/10/20 18:08 Coding Level of Care Code ED Multi Sensor Operator for Chg Fwd Exam Comprehensive
[2020-08-10 15:13] LABS: Basophils % 0.7 %; Eosinophils # 0.2 10^3/uL (0.0-0.8); Eosinophils % 3.1 %; Hematocrit 46.4 % (37.0-47.0); Hemoglobin 14.5 g/dL (11.5-15.3); Lymphocytes # 1.6 10^3/uL (0.8-4.8); Lymphocytes % 25.6 %; Mean Corpuscular HGB Conc 31.3 g/dL (30.0-36.0); Mean Corpuscular Hemoglobin 30.7 pg (28.0-34.0); Mean Corpuscular Volume 98.3 fL (81-99); Mean Platelet Volume 10.3 fL (7.4-10.4); Monocytes # 0.5 10^3/uL (0.2-0.9); Monocytes % 8.6 %; Neutrophils # 3.74 10^3/uL (1.8-7.7); Neutrophils % 61.7 %; Nucleated Red Blood Cells % 0 %; Platelet Count 193 10^3/cmm (130-400); Red Blood Count 4.72 10^6/uL (4.1-5.3); Red Cell Distribution Width 12.6 % (12.1-15.1); White Blood Count 6.1 10^3/uL (4.0-10.0)
[2020-08-10 15:18] LABS: Alanine Aminotransferase 14 U/L (0-33); Albumin Level 3.9 g/dL (3.5-5.2); Alkaline Phosphatase 117 IU/L (35-105); Anion Gap 10.1 (5-19); Aspartate Amino Transferase 11 U/L (0-32); Blood Urea Nitrogen 4 mg/dL (6-20); Calcium 9.2 mg/dL (8.5-10.5); Carbon Dioxide 31 mmol/L (22-29); Chloride 99 mmol/L (98-107); Creatinine Clr Calc Pharmacy 133.7745; Globulin 2.5 g/dL (1.3-4.6); Glomerular Filtration Rate 103.4 mL/min (90-130); Glucose 129 mg/dL (65-115); Osmolality Calculated 281 mOsm/kg (285-295); Potassium 4.1 mmol/L (3.5-5.1); Sodium 136 mmol/L (136-145); Total Bilirubin 0.3 mg/dL (0.15-1.2); Total Protein 6.4 g/dL (6.6-8.7)
[2020-08-10 15:31] LABS: D Dimer 0.86 ug/mIFEU (0-0.59)
[2020-08-10] MEDS: ketorolac 30 mg/mL INJ IVP (16:45)
[2020-08-10 16:50] VITALS: PULSE 78; RESP 16; O2SAT 96
[2020-08-10] MEDS: ipratropium-albuterol 3 mL Neb INHALATION (16:50)
[2020-08-10 16:53] VITALS: PULSE 79
[2020-08-10 17:31] LABS: Influenza A by IFA Negative (Negative); Influenza B by IFA Negative (Negative); SARS Covid-2 Antigen Negative (Negative)
--- NOTE | 2020-08-10 17:35 | PC.NURSE ---
patient given bsc to use
[2020-08-10 18:06] VITALS: BP 142/91; PULSE 78; RESP 20; TEMP 37.1; O2SAT 96
== END 2020-08-10 18:08 | disposition home or self-care (01) ==
PROVIDERS: Emergency Provider Family Medicine; PCP Nurse Practitioner Family
DX: J44.1 Chronic obstructive pulmonary disease with (acute) exacerbation (principal); Z79.01 Long term (current) use of anticoagulants; Z86.19 Personal history of other infectious and parasitic diseases; E78.5 Hyperlipidemia, unspecified; I10 Essential (primary) hypertension; F17.210 Nicotine dependence, cigarettes, uncomplicated
CPT/HCPCS: 12345; 71101; 80053; 85025; 85378; 87426; 87804; 94640; 96374; 96375; 99282; 99283; J1885; J2930; J3535

== ENCOUNTER → 2020-09-03 15:58 | Outpatient (BNVA) | payer MEDICARE, MEDICAID, SELFPAY ==
[2020-07-18 17:32] VITALS: BP 115/65; BMI 41.0
== END ==
PROVIDERS: PCP Nurse Practitioner Family; Visit Provider Nurse Practitioner Family
DX: Z20.828 Contact with and (suspected) exposure to other viral communicable diseases (principal); J44.9 Chronic obstructive pulmonary disease, unspecified
CPT/HCPCS: 87635

== ENCOUNTER 2020-09-04 11:38 | Inpatient (IN) | payer MEDICARE, MEDICAID, SELFPAY ==
[2020-07-18 17:32] VITALS: BP 115/65; BMI 41.0
[2020-09-04] VITALS (13 sets, daily range): BP systolic 136–158; BP diastolic 76–125; PULSE 81–118; RESP 18–26; TEMP 36.5–37.6; O2SAT 90–95; BMI 41.1
--- NOTE | 2020-09-04 11:48 | ECG_ITS ---
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 Measurements Intervals [place] Rate: 79 P: 63 FL: 164 QRS: 81 QRSD: 89 T: 58 QT: 373 QTc: 428 Interpretive Statements SINUS RHYTHM MODERATE ST DEPRESSION [0.05+ mV ST DEPRESSION] Compared to ECG 07/15/2020 09:18:48 ST (T wave) deviation now present Electronically Signed On 09-04-2020 21:15:12 VACUUM METALIZER OPERATOR by Tisha Wright M.D. [id number]
--- NOTE | 2020-09-04 11:48 | XRR_ITS ---
PROCEDURE INFORMATION: Exam: XR Chest, 1 View Exam date and time: 09/04/2020 12:28 PM Age: 55 years old Clinical indication: Shortness of breath; Patient HX: Limited HX, PT on covid precaution, nurse positioned board with patient; Additional info: SOB TECHNIQUE: Imaging protocol: XR of the chest Views: 1 view. COMPARISON: CR XR ribs LT mn 3V w CXR1V [id number] 08/10/2020 3:24 PM FINDINGS: Lungs: COPD, interstitial prominence, and right basilar airspace disease. Pleural space: Small right pleural effusion. Heart/Mediastinum: Epicardial fat cardiomegaly. Bones/joints: Osteopenia and degenerative change. XR/XR chest 1V portable [id number] IMPRESSION: 1. COPD, interstitial prominence, and right basilar airspace disease. 2. Small right pleural effusion.
--- NOTE | 2020-09-04 11:48 | PC.NURSE ---
Patient making negative statements about staff during triage. Patient advised that her statements are not appropriate and to keep them to herself. Patient stated she has thoughts about kill others, then retracted the statement, stating she was joking. Primary nurse notified.
--- NOTE | 2020-09-04 12:26 | W.ED.SOB ---
HPI - SOB/Dyspnea General: Chief Complaint: Shortness of Breath/Dyspnea Stated Complaint: SOB Time Seen by Provider: 09/04/20 11:45 Source: patient Mode of arrival: ambulatory Limitations: no limitations History of Present Illness: HPI Narrative: 55 yo female patient presents to the ER with SOB. Pt states she was tsted for COVID yesterday and given po steroids but has sine worsened. Pt states she has been running a subjective fever. Pt denies Chest pain. Pt denies abd pain pt johnie urinary symptoms. Pt with hisotry of COPD. Associated symptoms: Reports fever(s); Deny abdominal pain, chest pain, dizziness, lightheadedness, nausea, palpitations, syncope or vomiting Review of Systems Const: Reports: fever(s), chills and body aches Eyes: Denies: change in vision ENMT: Denies: throat pain Card: Denies: chest pain, palpitations, irregular heart rhythm, lightheadedness or syncope Resp: Reports: dyspnea, non-productive cough and wheezing GI: Denies: abdominal pain, nausea, vomiting or diarrhea : Denies: flank pain, difficulty voiding, dysuria or urinary frequency Musc: Denies: neck pain Neuro: Denies: headache(s), numbness in extremities, weakness in extremities, sensory changes, difficulty walking, dizziness or vertigo Psych: Denies: anxiety, depression, suicidal ideation or homicidal ideation PFSH ED PFSH: Medical History Acute on chronic respiratory failure with hypoxemia Anxiety and depression Bilateral pulmonary embolism Bipolar 2 disorder Chronic pain Chronic post-traumatic stress disorder (PTSD) COPD (chronic obstructive pulmonary disease) COPD (chronic obstructive pulmonary disease) Chronic COPD. Chronic smoking. She is aware of the risks of cigarette smoking with COPD. COPD (chronic obstructive pulmonary disease) COPD (chronic obstructive pulmonary disease) GERD (gastroesophageal reflux disease) Hepatitis C virus infection cured after antiviral drug therapy Hyperlipemia Hyperlipidemia Hypertension Hypertension Hypothyroidism Insomnia Obstructive sleep apnea Ovarian cyst Pneumonia Pulmonary emboli Pulmonary embolism Spinal stenosis Tobacco use disorder, continuous Surgical History H/O section Status post left foot surgery Family History Mother Cancer Breast cancer Social History (Reviewed 09/04/20 @ 12:28 by Yanely Smith Smoking and tobacco status: current every day smoker cigarettes Packs smoked per day: 1 Years cigarettes smoked: 30 Quit status (tobacco): considering quitting Second hand smoke exposure: No Alcohol intake: never Counseling given: No Last substance use date: 10/26/19 Household members: children Current occupational status: unemployed History of recent travel: No Physical Exam Const: COMMON NORMALS: no acute distress, patient oriented x3 and no limitations GENERAL APPEARANCE: cooperative HENMT: COMMON NORMALS: normocephalic, EAC's normal and Normal external nose present HEAD & SCALP: normocephalic FACE & SINUS: normal facial exam NOSE: Normal external nose present GENERAL EAR: hearing grossly impaired EXTERNAL AUDITORY CANAL: EAC's normal MOUTH: Normal oral and palatal mucosa present THROAT: posterior oropharynx normal Eye: COMMON NORMALS: Equal, round and reactive pupils present, EOMs intact bilaterally and conjunctivae normal CONJUNCTIVA: Yes conjunctivae normal PUPIL: Yes Equal, round and reactive pupils present Neck/C-Spine: COMMON NORMALS: full ROM, no lymphadenopathy, supple and no meningeal signs Lymph: LYMPHATIC: no lymphadenopathy noted Chest: COMMONS NORMALS: normal inspection of the chest and normal palpation of entire chest wall Resp: EFFORT & INSPECTION: Yes tachypneic and Yes Actively coughing AUSCULTATION: wheezes and bronchial breath sounds Cardio: COMMON NORMALS: regular rate and regular rhythm RATE: regular rate RHYTHM: regular rhythm GI: COMMON NORMALS: Normal to inspection, nondistended, normoactive bowel sounds present, Soft to palpation and non-tender PALPATION: Yes Soft to palpation : COMMON NORMALS: Yes no CVA tenderness BLADDER/KIDNEY EXAM: Yes no CVA tenderness Back/Pelvis: COMMON NORMALS: no CVA tenderness Extremity: COMMON NORMALS: normal to inspection, full ROM and capillary refill normal Neuro: COMMON NORMALS: patient oriented x3, CN's II-XII intact bilaterally, moves all extremities, no focal motor deficits and no sensory deficits noted MENINGEAL SIGNS: Yes no meningeal signs Psych: COMMON NORMALS: mental status grossly normal, Normal thought process present, cooperative, normal affect, speech normal, activity/motor behavior normal, denies hallucinations, denies homicidal ideation and denies suicidal ideation SPEECH: Yes normal speech THOUGHT PROCESS: Normal thought process present Skin: COMMON NORMALS: no rashes or lesions noted, no wounds and turgor normal GENERAL SKIN EXAM: no rashes or lesions noted and turgor normal Course Vital Signs: Vital signs: Vital Signs Temperature 97.7 F 09/04/20 11:41 Pulse Rate 106 H 09/04/20 15:18 Respiratory Rate 20 H 09/04/20 15:15 Blood Pressure 147/125 09/04/20 11:41 Pulse Oximetry 90 09/04/20 15:15 MDM - SOB/Dyspnea MDM Narrative: Medical decision making narrative: Despite breathing treatments and steroids patient still is having labored respers and tachypenic. Pt has screamed out for help multiple times. Pt had a coughing fit and had BM while doing so. Pt drops to 86-87 without oxygen and on 4 l remains 92%. I will discuss admission with Dr. Sandoval at this time Lab Data: Labs: Lab Results 09/04/20 09/04/20 09/04/20 Range/Units 12:30 12:30 12:39 WBC 5.8 (4.0-10.0) 10^3/ uL RBC 4.64 (4.1-5.3) 10^6/u L Hgb 14.0 (11.5-15.3) g/dL Hct 42.8 (37.0-47.0) % MCV 92.2 (81-99) fL MCH 30.2 (28.0-34.0) pg MCHC 32.7 (30.0-36.0) g/dL RDW 12.4 (12.1-15.1) % Plt Count 237 (130-400) 10^3/c mm MPV 10.1 (7.4-10.4) fL Neut % (Auto) 84.9 % Lymph % (Auto) 12.7 % [place] % (Auto) 1.7 % Eos % (Auto) 0.0 % Baso % (Auto) 0.2 % Neut # (Auto) 4.94 (1.8-7.7) 10^3/u L Lymph # (Auto) 0.7 L (0.8-4.8) 10^3/u L [place] # (Auto) 0.1 L (0.2-0.9) 10^3/u L Eos # (Auto) 0.0 (0.0-0.8) 10^3/u L Baso # (Auto) 0.0 (0.0-0.1) 10^3/u L Nucleated RBC % (a uto) 0 % Nucleated RBCs # 0.0 /100WBC Specimen Type Sample Site ABG pH (7.35-7.45) ABG pCO2 (35-45) mmHg ABG pO2 (80.0-100.0) mmH g ABG HCO3 (22-26) mmol/L ABG O2 Saturation ABG Base Excess (-2.0-2.0) mmol/ L Glenn Test A-a O2 Gradient (5-10) mmHg Hematocrit (37-47) % Hgb O2 Saturation (95-100) % Carboxyhemoglobin (0.4-20.1) %THgb Methemoglobin (0.4-1.5) % Total Hemoglobin (12-16) g/dL Ionized Calcium (1.1-1.4) mmol/L O2 Delivery Device O2 Liters/Min % FiO2 % Planting Machine Operator ID Sodium 133 L (136-145) mmol/L Potassium 4.6 (3.5-5.1) mmol/L Chloride 94 L (98-107) mmol/L Carbon Dioxide 30 H (22-29) mmol/L Anion Gap 13.6 (5-19) BUN 4 L (6-20) mg/dL Creatinine 0.4 L (0.5-0.9) mg/dL GFR Calculation 164.5 H (90-130) mL/min Glucose 147 H (65-115) mg/dL Calculated Osmolal ity 276 L (285-295) mOsm/k g Calcium 9.1 (8.5-10.5) mg/dL Total Bilirubin 0.3 (0.15-1.2) mg/dL AST 11 (0-32) U/L ALT 13 (0-33) U/L Alkaline Phosphata se 150 H (35-105) IU/L Total Protein 6.4 L (6.6-8.7) g/dL Albumin 4.0 (3.5-5.2) g/dL Globulin 2.4 (1.3-4.6) g/dL Influenza Type A A g Negative (Negative) Influenza Type B A g Negative (Negative) SARS-CoV-2 Ag (Rap id) (Negative) 09/04/20 09/04/20 Range/Units 12:39 14:01 WBC (4.0-10.0) 10^3/ uL RBC (4.1-5.3) 10^6/u L Hgb (11.5-15.3) g/dL Hct (37.0-47.0) % MCV (81-99) fL MCH (28.0-34.0) pg MCHC (30.0-36.0) g/dL RDW (12.1-15.1) % Plt Count (130-400) 10^3/c mm MPV (7.4-10.4) fL Neut % (Auto) % Lymph % (Auto) % [place] % (Auto) % Eos % (Auto) % Baso % (Auto) % Neut # (Auto) (1.8-7.7) 10^3/u L Lymph # (Auto) (0.8-4.8) 10^3/u L [place] # (Auto) (0.2-0.9) 10^3/u L Eos # (Auto) (0.0-0.8) 10^3/u L Baso # (Auto) (0.0-0.1) 10^3/u L Nucleated RBC % (a uto) % Nucleated RBCs # /100WBC Specimen Type Arterial Sample Site Radial, right ABG pH 7.35 (7.35-7.45) ABG pCO2 58.0 H (35-45) mmHg ABG pO2 64.8 L (80.0-100.0) mmH g ABG HCO3 32.2 H (22-26) mmol/L ABG O2 Saturation 92.2 ABG Base Excess 4.8 H (-2.0-2.0) mmol/ L Glenn Test Pos A-a O2 Gradient 12.3 H (5-10) mmHg Hematocrit 45.3 (37-47) % Hgb O2 Saturation 86.4 L (95-100) % Carboxyhemoglobin 5.8 (0.4-20.1) %THgb Methemoglobin 0.6 (0.4-1.5) % Total Hemoglobin 14.8 (12-16) g/dL Ionized Calcium 1.2 (1.1-1.4) mmol/L O2 Delivery Device Nc O2 Liters/Min 3.0 % FiO2 32.0 % Planting Machine Operator ID [place] Sodium 132.0 (136-145) mmol/L Potassium 4.3 (3.5-5.1) mmol/L Chloride (98-107) mmol/L Carbon Dioxide (22-29) mmol/L Anion Gap (5-19) BUN (6-20) mg/dL Creatinine (0.5-0.9) mg/dL GFR Calculation (90-130) mL/min Glucose 128.0 H (65-115) mg/dL Calculated Osmolal ity (285-295) mOsm/k g Calcium (8.5-10.5) mg/dL Total Bilirubin (0.15-1.2) mg/dL AST (0-32) U/L ALT (0-33) U/L Alkaline Phosphata se (35-105) IU/L Total Protein (6.6-8.7) g/dL Albumin (3.5-5.2) g/dL Globulin (1.3-4.6) g/dL Influenza Type A A g (Negative) Influenza Type B A g (Negative) SARS-CoV-2 Ag (Rap id) Negative (Negative) Discharge Plan Discharge Prescriptions: No Action duloxetine [Cymbalta] 60 mg capsule,delayed release(DR/EC) 120 mg PO QAM Qty: 60 RF: 1 (DME) CAM WALKER Qty: 1 RF: 0 levothyroxine 100 mcg capsule 100 mcg PO DAILY RF: 0 Eliquis 5 mg tablet 5 mg PO BID RF: 0 Abilify 5 mg tablet 5 mg PO .q evening Qty: 30 RF: 0 prednisone 20 mg tablet 60 mg PO DAILY 9 Days Qty: 18 RF: 0 modafinil [Provigil] 200 mg tablet 200 mg PO DAILY Qty: 30 RF: 5 tramadol 50 mg tablet 50 mg PO BID RF: 0 montelukast 10 mg tablet 10 mg PO DAILY RF: 0 Spiriva with HandiHaler 18 mcg capsule, w/inhalation device 1 cap INHALATION DAILY RF: 0 albuterol sulfate 90 mcg/actuation HFA aerosol inhaler 2 inh INHALATION Q4H PRN (Reason: shortness of breath or wheezing) Qty: 18 RF: 0 metformin 500 mg tablet 500 mg PO BID RF: 0 fluticasone propionate [Flonase Allergy Relief] 50 mcg/actuation [place],Suspension 1 spray INTRANASAL BID RF: 0 budesonide-formoterol [Symbicort] 160-4.5 mcg/actuation HFA aerosol inhaler 2 puff INHALATION BID RF: 0 trazodone 150 mg tablet See Rx Instructions .ROUTE .COMPLEX PRN (Reason: insomnia) RF: 0 atorvastatin [Lipitor] 20 mg Tablet 20 mg PO QPM RF: 0 omeprazole 40 mg Capsule,Delayed Release(Dr/Ec) 40 mg PO DAILY RF: 0 glimepiride 4 mg Tablet 2 mg PO DAILY RF: 0 gabapentin 300 mg Capsule 300 mg PO BID RF: 0 hydrocodone-acetaminophen 5-325 mg tablet 1 tab PO Q6H PRN (Reason: pain) Qty: 12 RF: 0 nystatin 100,000 unit/gram Cream See Rx Instructions .ROUTE .COMPLEX RF: 0 Atrovent 0.02 % Solution See Rx Instructions .ROUTE .COMPLEX RF: 0 Coding Level of Care Code ED Research Nurse for Briang Fwd Exam Comprehensive
[2020-09-04 12:57] LABS: Basophils % 0.2 %; Hematocrit 42.8 % (37.0-47.0); Lymphocytes # 0.7 10^3/uL (0.8-4.8); Lymphocytes % 12.7 %; Mean Corpuscular HGB Conc 32.7 g/dL (30.0-36.0); Mean Corpuscular Hemoglobin 30.2 pg (28.0-34.0); Mean Corpuscular Volume 92.2 fL (81-99); Mean Platelet Volume 10.1 fL (7.4-10.4); Monocytes # 0.1 10^3/uL (0.2-0.9); Monocytes % 1.7 %; Neutrophils # 4.94 10^3/uL (1.8-7.7); Neutrophils % 84.9 %; Nucleated Red Blood Cells % 0 %; Platelet Count 237 10^3/cmm (130-400); Red Blood Count 4.64 10^6/uL (4.1-5.3); Red Cell Distribution Width 12.4 % (12.1-15.1); White Blood Count 5.8 10^3/uL (4.0-10.0)
[2020-09-04 13:18] LABS: Alanine Aminotransferase 13 U/L (0-33); Alkaline Phosphatase 150 IU/L (35-105); Aspartate Amino Transferase 11 U/L (0-32); Blood Urea Nitrogen 4 mg/dL (6-20); Calcium 9.1 mg/dL (8.5-10.5); Carbon Dioxide 30 mmol/L (22-29); Chloride 94 mmol/L (98-107); Globulin 2.4 g/dL (1.3-4.6); Glomerular Filtration Rate 164.5 mL/min (90-130); Glucose 147 mg/dL (65-115); Osmolality Calculated 276 mOsm/kg (285-295); Sodium 133 mmol/L (136-145); Total Bilirubin 0.3 mg/dL (0.15-1.2); Total Protein 6.4 g/dL (6.6-8.7)
[2020-09-04 13:31] LABS: Anion Gap 13.6 (5-19); Potassium 4.6 mmol/L (3.5-5.1)
[2020-09-04 13:32] LABS: Influenza A by IFA Negative (Negative); Influenza B by IFA Negative (Negative); SARS Covid-2 Antigen Negative (Negative)
[2020-09-04 14:14] LABS: ABG PH Result 7.35 (7.35-7.45); Alveolar-Arterial Oxygen Gradi 12.3 mmHg (5-10); Arterial Blood Gas Hematocrit 45.3 % (37-47); Base Excess ABG 4.8 mmol/L (-2.0-2.0); Blood Gas Allen Test Pos; Blood Gas Operator Identificat MONRO; Blood Gas Sample Site Radial, right; Blood Gas Sample Type Arterial; Carboxyhemoglobin 5.8 %THgb (0.4-20.1); HCO3 ABG 32.2 mmol/L (22-26); HGB O2 Sat 86.4 % (95-100); Ionized Calcium Level - ABG 1.2 mmol/L (1.1-1.4); Methemoglobin 0.6 % (0.4-1.5); Oxygen Device NC; Oxygen Saturation ABG 92.2; PO2 ABG 64.8 mmHg (80.0-100.0); Potassium Level - ABG 4.3 mmol/L (3.5-5.0); Total Hemoglobin 14.8 g/dL (12-16)
[2020-09-04] MEDS: ipratropium-albuterol 3 mL Neb INHALATION ×3 (14:21→15:14)
[2020-09-04] MEDS: cefTRIAXone 1,000 MG in sodium chloride 0.9% (plus) 50 ML 100 MG IV (15:05)
--- NOTE | 2020-09-04 15:54 | P.HP_ITS ---
Providers/Chief Complaint Admitting Physician: Vero Nance MD Primary Care Provider: OSCAR Montoya Chief Complaint: SOB History of Present Illness Tomeka Marshall is a 55 year old female with PMHx noted below presents from home with complaints of worsening shortness of breath, productive cough, subjective fever and chills for approximately 1 week. She is oxygen dependent at baseline with a 3 to 4 L nasal cannula requirement. She has been getting so short of breath that she is unable to ambulate even to the bathroom without having to stop to catch her breath. She has had productive cough with thick yellow sputum. She was tested for COVID-19 yesterday by her primary care provider due to reported exposure though she denies this on my questioning today in the ER, results of PCR testing is still pending. Rapid testing here has been negative. She has just gotten off the commode so is quite short of breath, with noted conversational dyspnea, tachycardia and appears quite overtly anxious. After being coached through need to slow down her breathing, take deeper breaths and increasing oxygen to 5 L she begins to calm down and is now saturating in the low to mid 90s. Patient earlier this year for similar symptoms. She has questionable compliance with her medication regimen and her oxygen. Previous attempts to set up BiPAP at home were unsuccessful as patient refused to stay long enough for us to get this done prior to going home. Work-up so far today indicates normal white count at 5.8, normal hemoglobin at 14, sodium of 133, normal renal function, blood glucose of 147, ABG indicating hypercapnia and hypoxia, chest x-ray with noted interstitial prominence, emphysema and right basilar airspace disease. So far she has received nebulizer treatments, IV s teroids, a dose of ceftriaxone and will be receiving a dose of azithromycin as well. She is somewhat hypertensive which is likely anxiety driven, afebrile and tachypneic. She will require admission to the hospital for further management of acute on chronic hypercapnic and hypoxic respiratory failure, acute COPD exacerbation. Review of Systems Const: Reports: fever(s), chills, change in appetite (decreased appetite) and fatigue Eyes: Denies: change in vision ENMT: Reports: dry mouth Card: Reports: dyspnea on exertion; Denies: chest pain, swelling of feet/ankles or lightheadedness Resp: Reports: dyspnea, productive cough (thick yellow sputum) and chest congestion GI: Reports: nausea, vomiting (posttussive) and fecal incontinence (with coughing spells); Denies: abdominal pain, hematemesis or hematochezia : Denies: hematuria Musc: Denies: back pain Skin/Breast: Denies: rash Neuro: Reports: weakness in extremities and difficulty walking; Denies: numbness in extremities Psych: Denies: anxiety Medications/Allergies Home Medications Medication Instructions Recorded Confirmed Last Taken Type atorvastatin [Lipitor] 20 mg PO QPM 10/22/19 09/04/20 09/03/20 History gabapentin 300 mg PO BID 10/22/19 09/04/20 09/04/20 History glimepiride 2 mg PO DAILY 10/22/19 09/04/20 09/04/20 History omeprazole 40 mg PO DAILY 10/22/19 09/04/20 09/04/20 History CAM WALKER #1 ea NS 11/30/19 09/04/20 Unknown Rx apixaban 5 mg tablet 5 mg PO BID tab 02/12/20 09/04/20 09/04/20 History levothyroxine 100 mcg capsule 100 mcg PO DAILY 02/12/20 09/04/20 09/04/20 History Spiriva with HandiHaler 1 cap INHALATION DAILY 05/28/20 09/04/20 09/03/20 History albuterol sulfate 2 inh INHALATION Q4H PRN #18 gm 05/28/20 09/04/20 09/04/20 Rx montelukast 10 mg PO DAILY 05/28/20 09/04/20 09/04/20 History tramadol 50 mg PO BID 05/28/20 09/04/20 09/04/20 History modafinil 200 mg tablet 200 mg PO DAILY #30 tab 06/21/20 09/04/20 09/04/20 Rx duloxetine 60 mg capsule,delayed 120 mg PO QAM #60 cap 07/05/20 09/04/20 09/04/20 Rx release budesonide-formoterol [Symbicort] 2 puff INHALATION BID 07/15/20 09/04/20 09/03/20 History fluticasone propionate [Flonase 1 spray INTRANASAL BID 07/15/20 09/04/20 09/03/20 History Allergy Relief] metformin 500 mg PO BID 07/15/20 09/04/20 09/04/20 History trazodone See Rx Instructions .ROUTE 07/15/20 09/04/20 09/03/20 History .COMPLEX PRN aripiprazole 5 mg tablet 5 mg PO .q evening #30 tab 08/02/20 09/04/20 09/03/20 Rx hydrocodone-acetaminophen 1 tab PO Q6H PRN #12 tab 08/05/20 09/04/20 09/04/20 Rx prednisone 20 mg tablet 60 mg PO DAILY 9 Days #18 tab 09/03/20 09/04/20 09/04/20 Rx ipratropium bromide [Atrovent] See Rx Instructions .ROUTE .COMPLEX 09/04/20 09/04/20 09/04/20 History nystatin See Rx Instructions .ROUTE .COMPLEX 09/04/20 09/04/20 09/03/20 History Allergies Allergy/AdvReac Type Severity Reaction Status Date / Time levofloxacin [From Levaquin] Allergy ADR-Abdominal Verified 09/03/20 15:11 Pain Sulfa (Sulfonamide Allergy ADR-Blurry Verified 09/03/20 15:11 Antibiotics) Vision PFSH Acute PFSH: Medical History Acute on chronic respiratory failure with hypoxemia Anxiety and depression Bilateral pulmonary embolism -on AC with Eliquis Bipolar 2 disorder Chronic pain Chronic post-traumatic stress disorder (PTSD) COPD (chronic obstructive pulmonary disease) Chronic COPD. Chronic smoking. She is aware of the risks of cigarette smoking with COPD. GERD (gastroesophageal reflux disease) Hepatitis C virus infection cured after antiviral drug therapy Hyperlipidemia Hypertension Hypothyroidism Insomnia Obstructive sleep apnea Ovarian cyst Pneumonia Spinal stenosis Tobacco use disorder, continuous Surgical History H/O section Status post left foot surgery Family History Mother Cancer Breast cancer Social History Smoking and tobacco status: current every day smoker cigarettes Packs smoked per day: 1 Years cigarettes smoked: 30 Quit status (tobacco): considering quitting Second hand smoke exposure: No Alcohol intake: never Counseling given: No Last substance use date: 10/26/19 Household members: children Current occupational status: unemployed History of recent travel: No Vitals/I&O/Wt Last Vital Signs Temp 97.7 F 09/04/20 11:41 Pulse 106 H 09/04/20 15:18 Resp 20 H 09/04/20 15:15 BP 147/125 09/04/20 11:41 Pulse Ox 90 09/04/20 15:15 Weight last 48 hrs Weight 115.666 kg Physical Exam Const: COMMON NORMALS: no acute distress, patient oriented x3 and alert GENERAL APPEARANCE: disheveled and appears older than stated age NUTRITIONAL APPEARANCE: obese morbidly obese ORIENTATION/CONSCIOUSNESS: Yes awake OTHER: -very low threshold for anxiety HENMT: COMMON NORMALS: normocephalic, atraumatic and hearing grossly normal bilaterally HEAD & SCALP: normocephalic and atraumatic MOUTH: moist mucous membranes abnormal Details: parched Eye: COMMON NORMALS: Equal, round and reactive pupils present, EOMs intact bi laterally and conjunctivae normal CONJUNCTIVA: Yes conjunctivae normal PUPIL: Yes Equal, round and reactive pupils present Neck/C-Spine: COMMON NORMALS: full ROM GENERAL: Yes normal visual insp ection and Yes trachea midline Resp: COMMON NORMALS: No retractions and No use of accessory muscles EFFORT & INSPECTION: Yes symmetric chest movement, Yes tachypneic and Yes Actively coughing productive (thick yellow sputum) AUSCULTATION: wheezes expiratory wheezes and diminished lung sounds OTHER: -conversational dyspnea, increased work of breathing -on 5 L NC, saturating in the mid 90s Cardio: COMMON NORMALS: regular rhythm, S1 normal heart sound present, S2 normal heart sound present and No murmurs present (Cardio) RATE: tachycardic RHYTHM: regular rhythm HEART SOUNDS: S1 normal heart sound present and S2 normal heart sound present GI: COMMON NORMALS: Normal to inspection, nondistended, normoactive bowel sounds present, Soft to palpation and non-tender INSPECTION: Yes central obesity PALPATION: Yes Soft to palpation Extremity: COMMON NORMALS: normal to inspection, full ROM, no clubbing, cyanosis or edema and no pedal edema Neuro: COMMON NORMALS: patient oriented x3, moves all extremities, no focal motor deficits and no sensory deficits noted Psych: COMMON NORMALS: Normal thought process present, cooperative, normal affect and speech normal SPEECH: Yes normal speech MOOD & AFFECT: Yes anxious THOUGHT PROCESS: Normal thought process present Skin: COMMON NORMALS: no rashes or lesions noted, no jaundice, no petechiae and no mottling GENERAL SKIN EXAM: no rashes or lesions noted Data : 09/04/20 12:30 09/04/20 12:30 Other data: I have reviewed all labs including CBC, CMP, COVID-19 testing, CXR A&P Assessment and plan (1) Acute exacerbation of chronic obstructive airways disease: -noted increased work of breathing, increased oxygen requirement, increased cough with expectoration -has already received IV steroids, dose of ceftriaxone and azithromycin -continue empiric antibiotics, IV steroids, Neb treatments, IS, antitussives as needed, pulmonary toilet -ABG with noted hypercapnia and hypoxia -noted CXR -may need BiPAP if she can tolerate it particularly with noted hypercapnia on ABG -rapid COVID-19 test negative; pending PCR, denies known exposure, isolation precautions -monitor respiratory status -supplemental oxygen as needed; baseline requirement of 3-4 L NC -no leukocytosis, afebrile -influenza negative Status: Acute (2) Acute on chronic respiratory failure with hypoxia and hypercapnia: -Secondary to acute COPD exacerbation as noted above Status: Acute (3) Bilateral pulmonary embolism: -prior hx of bilateral PE -resume AC with Eliquis Status: Chronic (4) Hypothyroidism: -check TSH -resume levothyroxine Status: Chronic Qualifiers: Hypothyroidism type: unspecified Qualified Code(s): E03.9 - Hypothyroidism, unspecified (5) Hyperlipidemia: -resume statin Status: Chronic Qualifiers: Hyperlipidemia type: unspecified Qualified Code(s): E78.5 - Hyperlipidemia, unspecified (6) Hypertension: -monitor vital signs -resume oral antihypertensives Status: Chronic Qualifiers: Hypertension type: essential hypertension Qualified Code(s): I10 - Essential (primary) hypertension (7) Tobacco use disorder, continuous: -active smoker -nicotine replacement therapy Status: Chronic Additional A&P Information -hx of PTSD, Bipolar disorder, Anxiety/depression, insomnia; resume meds -chronic pain; resume pain meds with caution -morbid obesity: BMI-41 kg/m2 -NIDDM type II: last A1c at goal-5.5 (06/2020); accuchecks, ISS, hypoglycemia precautions, hold oral hypoglycemic agents. Complicated by neuropathy -JAS -Chronic diastolic CHF; no acute exacerbation; Echo (10/2019): EF=60%, G1DD, no RWMA, normal PSP -Generalized weakness, likely due to acute illness; fall precautions, PT/OT evaluations in AM, assistance with out of bed activity -cardiac consistent carb diet as tolerated -GI ppx with PPI -DVT ppx not needed as on Eliquis -Dispo: home -Code status: FULL code -admit to medical-surgical floor Attestations Medical Necessity Statement*: Tomeka Marshall's hospital stay will require greater than 2 midnights for management of acute COPD exacerbation, acute on chronic hypercapnic and hypoxic respiratory failure, with higher than baseline oxygen requirement, requiring close monitoring of respiratory status, IV steroids and empiric antibiotics. Time Spent in Patient Care: Greater than 35 minutes (>than 50% of time spent in counselling and/or direct pt care on unit) . Coding Level of Care Code Acute Manufacturing Management Associate for g Fwd Diagnoses Acute exacerbation of chronic obstructive airways disease J44.1 Acute on chronic respiratory failure with hypoxia and hypercapnia J96.21; J96.22 Bilateral pulmonary embolism I26.99 Hypothyroidism E03.9 Hypothyroidism type: unspecified Hyperlipidemia E78.5 Hyperlipidemia type: unspecified Hypertension I10 Hypertension type: essential hypertension Tobacco use disorder, continuous F17.209
[2020-09-04] MEDS: LORazepam 2 mg/mL INJ 1 mL 0.5 MG IVP (16:22)
[2020-09-04] MEDS: azithromycin 500 MG in sodium chloride 0.9% 250 ML 250 MG IV (16:22)
[2020-09-04] MEDS: guaiFENesin-codeine UDC 10 mL PO (16:27)
[2020-09-04 17:11] LABS: Glucose Point of Care 200 mg/dL (70-110)
[2020-09-04] MEDS: nicotine 21 mg Patch 1 PATCH TRANSDERMA (18:40)
[2020-09-04 20:27] LABS: Glucose Point of Care 204 mg/dL (70-110)
[2020-09-04] MEDS: apixaban 5 mg Tablet PO (20:33)
[2020-09-04] MEDS: gabapentin 300 mg Capsule PO (20:33)
[2020-09-04] MEDS: atorvastatin 40 mg Tablet 20 MG PO (20:33)
[2020-09-04] MEDS: ARIPiprazole 10 mg Tablet 5 MG PO (20:33)
[2020-09-04] MEDS: trazodone 150 mg Tablet PO (20:34)
[2020-09-05] VITALS (10 sets, daily range): BP systolic 148–170; BP diastolic 78–96; PULSE 62–89; RESP 18–21; TEMP 36.4–37.1; O2SAT 92–97
[2020-09-05] MEDS: duloxetine 60 mg Capsule 120 MG PO (05:34)
[2020-09-05] MEDS: acetaminophen 325 mg Tablet 650 MG PO (05:35)
[2020-09-05 06:39] LABS: Glucose Point of Care 144 mg/dL (70-110)
[2020-09-05 07:27] LABS: Eosinophils % 0.1 %; Hematocrit 43.5 % (37.0-47.0); Hemoglobin 13.9 g/dL (11.5-15.3); Lymphocytes # 1.1 10^3/uL (0.8-4.8); Lymphocytes % 14.2 %; Mean Corpuscular Hemoglobin 29.9 pg (28.0-34.0); Mean Corpuscular Volume 93.5 fL (81-99); Mean Platelet Volume 10.1 fL (7.4-10.4); Monocytes # 0.6 10^3/uL (0.2-0.9); Monocytes % 7.4 %; Neutrophils # 5.79 10^3/uL (1.8-7.7); Neutrophils % 77.9 %; Nucleated Red Blood Cells % 0 %; Platelet Count 239 10^3/cmm (130-400); Red Blood Count 4.65 10^6/uL (4.1-5.3); Red Cell Distribution Width 12.6 % (12.1-15.1); White Blood Count 7.4 10^3/uL (4.0-10.0)
[2020-09-05] MEDS: ipratropium-albuterol 3 mL Neb INHALATION ×2 (07:33→10:56)
[2020-09-05 07:35] LABS: Blood Urea Nitrogen 7 mg/dL (6-20); Calcium 9.5 mg/dL (8.5-10.5); Carbon Dioxide 30 mmol/L (22-29); Chloride 97 mmol/L (98-107); Glomerular Filtration Rate 164.5 mL/min (90-130); Glucose 141 mg/dL (65-115); Osmolality Calculated 282 mOsm/kg (285-295); Sodium 136 mmol/L (136-145); Thyroid Stimulating Hormone 0.39 uIU/mL (0.27-4.20)
[2020-09-05 07:37] LABS: Anion Gap 13.8 (5-19); Potassium 4.8 mmol/L (3.5-5.1)
[2020-09-05] MEDS: TRAMadol 50 mg Tablet PO ×2 (07:50→17:57)
[2020-09-05] MEDS: pantoprazole DR 40 mg Tablet PO (07:50)
[2020-09-05] MEDS: HYDROcodone-acetaminophen 5-325 mg Tablet 1 TAB PO ×2 (07:50→14:32)
[2020-09-05] MEDS: gabapentin 300 mg Capsule PO ×3 (07:50→20:49)
[2020-09-05] MEDS: levothyroxine 100 mcg Tablet PO (07:50)
[2020-09-05] MEDS: montelukast sodium 10 mg Tablet PO (07:51)
[2020-09-05] MEDS: fluticasone nasal spray 16gm Btl 1 SPRAY INTRANASAL ×2 (07:52→17:58)
[2020-09-05] MEDS: apixaban 5 mg Tablet PO ×2 (07:52→17:58)
[2020-09-05] MEDS: nicotine 21 mg Patch 1 PATCH TRANSDERMA (07:52)
--- NOTE | 2020-09-05 08:07 | PC.NURSE ---
patient refuses to wear telemetry. Dr Gomes notified.
--- NOTE | 2020-09-05 09:52 | PC.NURSE ---
Patient is negative for covid and still has isolation order. poem writer notified Dr Gomes. Per Dr Gomes ok to discontinue isolation order. poem writer stopped order.
[2020-09-05 11:39] LABS: Glucose Point of Care 178 mg/dL (70-110)
--- NOTE | 2020-09-05 11:51 | PC.RESP ---
SMOKING CESSATION AND PULMONARY REHAB INFORMATION SENT TO PATIENT.
[2020-09-05] MEDS: cefTRIAXone 1,000 MG in sodium chloride 0.9% (plus) 50 ML 100 MG IV (14:32)
[2020-09-05] MEDS: azithromycin 500 MG in sodium chloride 0.9% 250 ML 250 MG IV (15:17)
--- NOTE | 2020-09-05 18:03 | PM.PN ---
Subjective Subjective: Interval history: Back and ribs are hurting from coughing. Otherwise is feeling a touch better today. No chest pain. Does have mild headache. No nausea or vomiting or diarrhea today, although reports had diarrhea yesterday. Vitals/I&O/Wt Last Vital Signs Temp 97.6 F 09/05/20 16:00 Pulse 68 09/05/20 16:00 Resp 18 09/05/20 16:00 BP 158/84 09/05/20 16:00 Pulse Ox 92 09/05/20 16:00 09/05/20 09/05/20 09/05/20 06:59 14:59 22:59 Intake Total 400 / 1040 Output Total 1750 / 2650 Balance -1350 / -1610 Weight last 48 hrs Weight 113.761 kg Weight 118.025 kg Weight 115.666 kg Physical Exam Const: COMMON NORMALS: no acute distress and patient oriented x3 NUTRITIONAL APPEARANCE: obese OTHER: CPAP on Awake, cooperative HENMT: COMMON NORMALS: oropharynx normal Neck/C-Spine: COMMON NORMALS: no JVD Resp: COMMON NORMALS: normal respiratory effort AUSCULTATION: wheezes and diminished lung sounds Cardio: COMMON NORMALS: no JVD, regular rhythm, S1 normal heart sound present, S2 normal heart sound present and No murmurs present (Cardio) RHYTHM: regular rhythm HEART SOUNDS: S1 normal heart sound present and S2 normal heart sound present GI: COMMON NORMALS: Normal to inspection, nondistended, normoactive bowel sounds present, Soft to palpation and non-tender PALPATION: Yes Soft to palpation Extremity: COMMON NORMALS: no joint enlargement and no pedal edema Neuro: COMMON NORMALS: patient oriented x3 and moves all extremities Skin: COMMON NORMALS: no rashes or lesions noted GENERAL SKIN EXAM: no rashes or lesions noted Data : 09/05/20 07:08 09/05/20 05:53 A&P Assessment and plan (1) Acute exacerbation of chronic obstructive airways disease: She is feeling a tiny bit better today. Acute respiratory failure with acute COPD exacerbation. Persistent wheezing, decreased air entry on exam. We will continue with IV steroids for today without change. Continue antibiotics. Continue neb treatments, I-S, pulmonary toilet. Antitussives as needed. Sputum culture if possible. -rapid COVID-19 test negative; pending PCR, denies known exposure, isolation precautions -supplemental oxygen as needed; baseline requirement of 3-4 L NC -influenza negative Status: Acute (2) Acute on chronic respiratory failure with hypoxia and hypercapnia: -Secondary to acute COPD exacerbation as noted above Status: Acute (3) Bilateral pulmonary embolism: -prior hx of bilateral PE -cont AC with Eliquis Status: Chronic (4) Hypothyroidism: -check TSH -cont levothyroxine Status: Chronic Qualifiers: Hypothyroidism type: unspecified Qualified Code(s): E03.9 - Hypothyroidism, unspecified (5) Hyperlipidemia: -cont statin Status: Chronic Qualifiers: Hyperlipidemia type: unspecified Qualified Code(s): E78.5 - Hyperlipidemia, unspecified (6) Hypertension: -monitor vital signs -resume oral antihypertensives Status: Chronic Qualifiers: Hypertension type: essential hypertension Qualified Code(s): I10 - Essential (primary) hypertension (7) Tobacco use disorder, continuous: -active smoker -nicotine replacement therapy Status: Chronic Additional A&P Information -hx of PTSD, Bipolar disorder, Anxiety/depression, insomnia; resume meds -chronic pain; resume pain meds with caution -morbid obesity: BMI-41 kg/m2 -NIDDM type II: last A1c at goal-5.5 (06/2020); accuchecks, ISS, hypoglycemia precautions, hold oral hypoglycemic agents. Complicated by neuropathy -JAS -Chronic diastolic CHF; no acute exacerbation; Echo (10/2019): EF=60%, G1DD, no RWMA, normal PSP -Generalized weakness, likely due to acute illness; fall precautions, PT/OT evaluations in AM, assistance with out of bed activity -cardiac consistent carb diet as tolerated -GI ppx with PPI -DVT ppx not needed as on Eliquis -Dispo: home -Code status: FULL code Attestations Medical Necessity Statement*: Continue admission for assessment management of COPD exacerbation, respiratory failure with hypoxia. Coding Level of Care Code Acute Supervisor [employer] for Parmjit Colin Diagnoses Acute exacerbation of chronic obstructive airways disease J44.1 Acute on chronic respiratory failure with hypoxia and hypercapnia J96.21; J96.22 Bilateral pulmonary embolism I26.99 Hypothyroidism E03.9 Hypothyroidism type: unspecified Hyperlipidemia E78.5 Hyperlipidemia type: unspecified Hypertension I10 Hypertension type: essential hypertension Tobacco use disorder, continuous F17.209
[2020-09-05] MEDS: lidocaine 5% Patch 1 PATCH TOPICAL (20:48)
[2020-09-05] MEDS: atorvastatin 40 mg Tablet 20 MG PO (20:49)
[2020-09-05] MEDS: ARIPiprazole 10 mg Tablet 5 MG PO (20:49)
[2020-09-05] MEDS: trazodone 150 mg Tablet PO (20:50)
[2020-09-06] VITALS (9 sets, daily range): BP systolic 136–160; BP diastolic 83–98; PULSE 68–87; RESP 18–22; TEMP 36.4–37.1; O2SAT 77–98; BMI 40.4
[2020-09-06] MEDS: HYDROcodone-acetaminophen 5-325 mg Tablet 1 TAB PO ×2 (04:12→13:51)
[2020-09-06] MEDS: duloxetine 60 mg Capsule 120 MG PO (06:17)
[2020-09-06 06:51] LABS: Anion Gap 11.3 (5-19); Blood Urea Nitrogen 10 mg/dL (6-20); Calcium 9.4 mg/dL (8.5-10.5); Carbon Dioxide 33 mmol/L (22-29); Chloride 95 mmol/L (98-107); Glomerular Filtration Rate 164.5 mL/min (90-130); Glucose 86 mg/dL (65-115); Osmolality Calculated 278 mOsm/kg (285-295); Potassium 4.3 mmol/L (3.5-5.1); Sodium 135 mmol/L (136-145)
[2020-09-06] MEDS: TRAMadol 50 mg Tablet PO (08:30)
[2020-09-06] MEDS: nicotine 21 mg Patch 1 PATCH TRANSDERMA (08:30)
[2020-09-06] MEDS: predniSONE 20 mg Tablet 40 MG PO (08:30)
[2020-09-06] MEDS: montelukast sodium 10 mg Tablet PO (08:30)
[2020-09-06] MEDS: lidocaine 5% Patch 1 PATCH TOPICAL (08:30)
[2020-09-06] MEDS: pantoprazole DR 40 mg Tablet PO (08:31)
[2020-09-06] MEDS: levothyroxine 100 mcg Tablet PO (08:31)
[2020-09-06] MEDS: apixaban 5 mg Tablet PO (08:31)
[2020-09-06] MEDS: gabapentin 300 mg Capsule PO ×2 (08:31→14:36)
[2020-09-06] MEDS: fluticasone nasal spray 16gm Btl 1 SPRAY INTRANASAL (08:32)
[2020-09-06] MEDS: ipratropium-albuterol 3 mL Neb INHALATION (10:13)
--- NOTE | 2020-09-06 12:08 | PC.NURSE ---
Call received from the covid hotline patients covid tests are negative. Fax placed on chart.
[2020-09-06] MEDS: predniSONE 20 mg Tablet PO (13:05)
[2020-09-06] MEDS: doxycycline 100 mg Tablet PO (13:05)
[2020-09-06] MEDS: diphenhydrAMINE 50 mg Capsule 25 MG PO (14:36)
--- NOTE | 2020-09-06 17:00 | PC.NURSE ---
pt received D/C paperwork as well as [id number]. all questions answered.
--- NOTE | 2020-09-06 17:26 | PM.DCS ---
Discharge Providers Date of Admission: 09/04/20 15:07 Date of Discharge: September 06, 2020 Attending Provider at Admission: Vero Nance MD Attending Provider at Discharge: Willard Gomes Primary Care Provider: OSCAR Montoya Diagnoses at Discharge Discharge Diagnosis (1) Acute exacerbation of chronic obstructive airways disease: Status: Acute (2) Acute on chronic respiratory failure with hypoxia and hypercapnia: Status: Acute Permanent problem details: (3) Bilateral pulmonary embolism: Status: Chronic Permanent problem details: -on AC with Eliquis (4) Hypothyroidism: Status: Chronic Qualifiers: Hypothyroidism type: unspecified Qualified Code(s): E03.9 - Hypothyroidism, unspecified (5) Hyperlipidemia: Status: Chronic Qualifiers: Hyperlipidemia type: unspecified Qualified Code(s): E78.5 - Hyperlipidemia, unspecified (6) Hypertension: Status: Chronic Qualifiers: Hypertension type: essential hypertension Qualified Code(s): I10 - Essential (primary) hypertension (7) Tobacco use disorder, continuous: Status: Chronic Reason for Visit Reason for Visit: SOB Hospital Course Hospital Course Pleasant 55-year-old lady with history of COPD, chronically on 3-4 L of oxygen at home, with a number of other comorbidities, including current smoking was admitted due to worsening shortness of breath, subjective fever and chills for about 1 week, treated for COPD exacerbation with IV steroids, with antibiotics with Rocephin, azithromycin, with interstitial prominence on CT with right basilar airspace disease. Her symptoms gradually improved. Her initial symptoms were associated with quite a bit of air hunger and anxiety. Wheezing gradually resolved, and she is currently been doing well on her baseline oxygen requirement. She did not qualify for more oxygen on evaluation today. Today she is feeling much better, and feels ready to return home. She had lost her IV overnight several times, and overnight was changed to prednisone. Antibiotics were changed to doxycycline, although she did have a rash noted on her leg shortly after (about 30 minutes?). She is allergic to Levaquin. She will complete her antibiotic course with azithromycin on discharge. She states she has follow-up with pulmonology set up for sometime next month. She does states she has a nebulizer at home, but we are giving her fresh prescription for DuoNeb as she says she has run out. She will complete a slow taper with prednisone at home as well. She is asked to stop smoking, and prescription was given for nicotine patches on discharge, please reassess and assist her with quitting. Discussed with her also symptoms of air hunger and associate anxiety with COPD. Please revisit to help her manage anxiety symptoms associated with the chronic respiratory illness. She continues on anticoagulation for history of bilateral PE. COVID-19 PCR testing is negative. Physical Exam Const: COMMON NORMALS: no acute distress and patient oriented x3 GENERAL APPEARANCE: comfortable NUTRITIONAL APPEARANCE: obese OTHER: CPAP on Awake, cooperative, pleasant, conversant She feels much better. Feels stronger and in good shape to go home. HENMT: COMMON NORMALS: oropharynx normal Neck/C-Spine: COMMON NORMALS: no JVD Resp: COMMON NORMALS: normal respiratory effort AUSCULTATION: no wheezes OTHER: air entry much better Cardio: COMMON NORMALS: no JVD, regular rhythm, S1 normal heart sound present, S2 normal heart sound present and No murmurs present (Cardio) RHYTHM: regular rhythm HEART SOUNDS: S1 normal heart sound present and S2 normal heart sound present GI: COMMON NORMALS: Normal to inspection, nondistended, normoactive bowel sounds present, Soft to palpation and non-tender PALPATION: Yes Soft to palpation Extremity: COMMON NORMALS: no joint enlargement and no pedal edema Neuro: COMMON NORMALS: patient oriented x3 and moves all extremities Skin: COMMON NORMALS: no rashes or lesions noted GENERAL SKIN EXAM: no rashes or lesions noted Discharge Data Data Completed and Pending: Completed Studies During Hospitalization Category Date Time Status XR chest 1V libert[place] ble 20727 Urgent Exams 09/04/20 11:48 Completed Labs from last 24 hours 09/06/20 05:47 Sodium 135 L Potassium 4.3 Chloride 95 L Carbon Dioxide 33 H Anion Gap 11.3 BUN 10 Creatinine 0.4 L GFR Calculation 164.5 H Glucose 86 Calculated Osmolal ity 278 L Calcium 9.4 Vitals: Last Vital Signs Temp 98.8 F 09/06/20 17:00 Pulse 77 09/06/20 17:00 Resp 20 H 09/06/20 17:00 BP 154/84 09/06/20 17:00 Pulse Ox 93 09/06/20 17:00 Discharge Plan Discharge Patient Disposition: Home Health Service Condition: Stable Prescriptions: New ipratropium-albuterol 0.5 mg-3 mg(2.5 mg base)/3 mL Solution For Nebulization 3 ml inhalation Q4H PRN (Reason: Shortness Of Breath) Qty: 180 RF: 0 prednisone 20 mg Tablet 60 mg PO DAILY Qty: 20 RF: 0 benzonatate 100 mg Capsule 200 mg PO TID PRN (Reason: Cough) Qty: 45 RF: 0 nicotine 21 mg/24 hr Patch 24 Hour 1 patch transdermal DAILY Qty: 30 RF: 0 dextromethorphan-guaifenesin 10-100 mg/5 mL Syrup 10 ml PO Q4H PRN (Reason: Cough) Qty: 237 RF: 0 azithromycin 500 mg tablet See Rx Instructions .ROUTE .COMPLEX Qty: 3 RF: 0 Continued duloxetine [Cymbalta] 60 mg capsule,delayed release(DR/EC) 120 mg PO QAM Qty: 60 RF: 1 (DME) CAM WALKER Qty: 1 RF: 0 levothyroxine 100 mcg capsule 100 mcg PO DAILY RF: 0 Eliquis 5 mg tablet 5 mg PO BID RF: 0 Abilify 5 mg tablet 5 mg PO .q evening Qty: 30 RF: 0 modafinil [Provigil] 200 mg tablet 200 mg PO DAILY Qty: 30 RF: 5 tramadol 50 mg tablet 50 mg PO BID RF: 0 montelukast 10 mg tablet 10 mg PO DAILY RF: 0 Spiriva with HandiHaler 18 mcg capsule, w/inhalation device 1 cap INHALATION DAILY RF: 0 albuterol sulfate 90 mcg/actuation HFA aerosol inhaler 2 inh INHALATION Q4H PRN (Reason: shortness of breath or wheezing) Qty: 18 RF: 0 metformin 500 mg tablet 500 mg PO BID RF: 0 fluticasone propionate [Flonase Allergy Relief] 50 mcg/actuation Outing,Suspension 1 spray INTRANASAL BID RF: 0 budesonide-formoterol [Symbicort] 160-4.5 mcg/actuation HFA aerosol inhaler 2 puff INHALATION BID RF: 0 trazodone 150 mg tablet See Rx Instructions .ROUTE .COMPLEX PRN (Reason: insomnia) RF: 0 atorvastatin [Lipitor] 20 mg Tablet 20 mg PO QPM RF: 0 omeprazole 40 mg Capsule,Delayed Release(Dr/Ec) 40 mg PO DAILY RF: 0 glimepiride 4 mg Tablet 2 mg PO DAILY RF: 0 gabapentin 300 mg Capsule 300 mg PO BID RF: 0 hydrocodone-acetaminophen 5-325 mg tablet 1 tab PO Q6H PRN (Reason: pain) Qty: 12 RF: 0 nystatin 100,000 unit/gram Cream See Rx Instructions .ROUTE .COMPLEX RF: 0 ipratropium bromide 0.02 % Solution See Rx Instructions .ROUTE .COMPLEX RF: 0 Discontinued prednisone 20 mg tablet 60 mg PO DAILY 9 Days Qty: 18 RF: 0 Discharge Orders: Discharge Order (Routine); Ordered 09/06/20 Ordered By: Willard Gomes Referrals: Dr. Paramjit Arguelles [Other] - 11/07/20 2:30 pm (This is your appointment to establish care with your physical science teacher. Please be sure and make this appointment.) [facility] [place]Outside] [facility] [Outside] Lan,OSCAR Lester [Primary Care Provider] - 09/13/20 2:00 am Discharge Diet: Cardiac and Diabetic Discharge Activity: Increase activity as tolerated, As per PT/OT instructions, Oxygen as instructed and Cpap/Bipap as instructed Patient Instructions: COPD, Benzonatate (By mouth), Prednisone (By mouth), Dextromethorphan (By mouth), Azithromycin (By mouth), Nicotine (Absorbed through the skin), Ipratropium/Albuterol (By breathing), Dextromethorphan/Guaifenesin/Phenylephrine (By mouth), Pulmonary Embolism (DC), How to Stop Smoking (DC), Chronic Obstructive Pulmonary Disease (DC), COPD Stoplight Activity Restrictions/Additional Instructions: If you experience any concerning symptoms including severe shortness of breath, chest pain or other, please call an ambulance. Please target oxygen saturation at home of 88-92%. If your oxygen saturation is persistently lower, even with increasing oxygen flow, please seek medical attention. Please stop smoking as continued smoking is going to worsen your lung disease, lead to worsening shortness of breath, as well as include risks of cardiovascular disease heart attack, stroke, and other, as well as various cancers. Please never smoke near oxygen due to severe fire hazard, risk of airway wright, severe disability and . Please discuss with your physical science teacher regarding air hunger symptoms for additional recommendations to help control the symptoms. Discharge Attestations Time Spent in Discharge Care*: greater than 30 min Status at Discharge: Cognitive status at discharge: cognitively intact, Behavioral status at discharge: cooperative, Quality Metrics Clinical Quality Measures During this hospital stay, did patient experience: None Coding Level of Care Code Acute Outsole Skiver for Chg Fwd Diagnoses Acute exacerbation of chronic obstructive airways disease J44.1 Acute on chronic respiratory failure with hypoxia and hypercapnia J96.21; J96.22 Bilateral pulmonary embolism I26.99 Hypothyroidism E03.9 Hypothyroidism type: unspecified Hyperlipidemia E78.5 Hyperlipidemia type: unspecified Hypertension I10 Hypertension type: essential hypertension Tobacco use disorder, continuous F17.209
== END 2020-09-06 17:00 | disposition home health service (06) | DRG 190 ==
LOC: ER 14:55 → MEDSURG 15:39
PROVIDERS: Registered Nurse; Admitting Provider Family Medicine; Emergency Provider Emergency Medicine; PCP Nurse Practitioner Family; Visit Provider Internal Medicine
DX: J44.1 Chronic obstructive pulmonary disease with (acute) exacerbation (principal); J96.21 Acute and chronic respiratory failure with hypoxia; J96.22 Acute and chronic respiratory failure with hypercapnia; I50.32 Chronic diastolic (congestive) heart failure; Z68.41 Body mass index [BMI] 40.0-44.9, adult; Z99.81 Dependence on supplemental oxygen; I11.0 Hypertensive heart disease with heart failure; F41.8 Other specified anxiety disorders; Z86.711 Personal history of pulmonary embolism; Z79.01 Long term (current) use of anticoagulants; G89.29 Other chronic pain; F43.12 Post-traumatic stress disorder, chronic; K21.9 Gastro-esophageal reflux disease without esophagitis; Z86.19 Personal history of other infectious and parasitic diseases; E78.5 Hyperlipidemia, unspecified; E03.9 Hypothyroidism, unspecified; G47.00 Insomnia, unspecified; G47.33 Obstructive sleep apnea (adult) (pediatric); Z87.01 Personal history of pneumonia (recurrent); F17.210 Nicotine dependence, cigarettes, uncomplicated; Z79.891 Long term (current) use of opiate analgesic; Z79.84 Long term (current) use of oral hypoglycemic drugs; Z79.51 Long term (current) use of inhaled steroids; E66.01 Morbid (severe) obesity due to excess calories
CPT/HCPCS: 12345; 36415; 36416; 36600; 71045; 80048; 80051; 80053; 82330; 82805; 82962; 83605; 84443; 85025; 87426; 87635; 87804; 93005; 94640; 94664; 96375; 97110; 97161; 97165; 97530; 99283; J0456; J0696; J2060; J2930; J7050; J7512; Q0163

== ENCOUNTER 2020-09-23 13:27 | Outpatient (CLI) | payer MEDICARE, MEDICAID, SELFPAY ==
[2020-07-18 17:32] VITALS: BP 115/65; BMI 41.0
--- NOTE | 2020-09-23 13:35 | XR_ITS ---
WS: [id number] Thoracic spine, 3 views, 09/23/2020 Clinical Data: BACK PAIN Comparison: None. Findings: There is a compression fracture of the T12 vertebral body with loss of at least 50% of the anterior a nd central vertebral body height. Diffuse osteoporosis is present. The disc heights are normal. There is minimal anterior osteoarthritic spurring. The paravertebral regions are not remarkable. XR/XR thoracic spine 2V 19547 Impression: 1. Compression fracture of the T12 vertebral body. 2. Osteoporosis and osteoarthritis.
--- NOTE | 2020-09-23 13:35 | XR_ITS ---
WS: [id number] Lumbar spine, AP, both obliques, lateral, and L5-S1 spot, 09/23/2020 Clinical Data: LUMBAR BACK PAIN Comparison: Lumbar spine, 02/11/2019. Findings: No compression fractures or subluxation is seen. There is disc space narrowing at L5-S1 The transvers e processes and SI joints are normal. There is diffuse osteoporosis. Minimal osteophyte formation is seen from L2 through L4. The compression fracture of T12 is noted. XR/XR lumbar spine min 4V 26721 Impression: 1. Degenerative disc narrowing at L5-S1. 2. Osteoarthritis and osteoporosis. 3. T12 compression fracture.
== END 2020-09-23 13:28 | disposition home or self-care (01) ==
LOC: RADWPI 13:30
PROVIDERS: PCP Nurse Practitioner Family; Visit Provider Nurse Practitioner Family
DX: S22.080A Wedge compression fracture of T11-T12 vertebra, initial encounter for closed fracture (principal); X58.XXXA Exposure to other specified factors, initial encounter; M81.0 Age-related osteoporosis without current pathological fracture; M47.814 Spondylosis without myelopathy or radiculopathy, thoracic region
CPT/HCPCS: 72070; 72114

== ENCOUNTER → 2020-10-27 08:51 | Outpatient (BNVA) | payer BC, MEDICAID, SELFPAY ==
[2020-07-18 17:32] VITALS: BP 115/65; BMI 41.0
== END ==
PROVIDERS: PCP Nurse Practitioner Family; Visit Provider Counselor Professional
DX: F31.81 Bipolar II disorder (principal)
CPT/HCPCS: 90834

== ENCOUNTER → 2020-11-28 08:06 | Outpatient (BNVA) | payer BC, MEDICAID, SELFPAY ==
[2020-07-18 17:32] VITALS: BP 115/65; BMI 41.0
== END ==
PROVIDERS: PCP Nurse Practitioner Family; Visit Provider Nurse Practitioner Psychiatric/Mental Health
DX: F31.81 Bipolar II disorder (principal); F43.12 Post-traumatic stress disorder, chronic; J44.9 Chronic obstructive pulmonary disease, unspecified
CPT/HCPCS: 99213

== ENCOUNTER → 2021-02-27 14:47 | Outpatient (BNVA) | payer BC, MEDICAID, SELFPAY ==
[2020-07-18 17:32] VITALS: BP 115/65; BMI 41.0
== END ==
PROVIDERS: PCP Nurse Practitioner Family; Visit Provider Specialist
DX: G47.411 Narcolepsy with cataplexy (principal); F17.210 Nicotine dependence, cigarettes, uncomplicated
CPT/HCPCS: 99214

== ENCOUNTER → 2021-03-09 08:29 | Outpatient (BNVA) | payer BC, MEDICAID, SELFPAY ==
[2020-07-18 17:32] VITALS: BP 115/65; BMI 41.0
== END ==
PROVIDERS: PCP Nurse Practitioner Family; Visit Provider Nurse Practitioner Psychiatric/Mental Health
DX: F31.81 Bipolar II disorder (principal); F43.12 Post-traumatic stress disorder, chronic; J44.9 Chronic obstructive pulmonary disease, unspecified
CPT/HCPCS: 99213

== ENCOUNTER 2021-03-23 06:50 | Inpatient (IN) | payer MEDICARE, MEDICAID, SELFPAY ==
[2020-07-18 17:32] VITALS: BP 115/65; BMI 41.0
[2021-03-23] VITALS (44 sets, daily range): BP systolic 128–207; BP diastolic 79–125; PULSE 61–131; RESP 13–32; TEMP 36.7–37; O2SAT 89–98; BMI 37.3
--- NOTE | 2021-03-23 06:52 | XR_ITS ---
WS: [id number] Portable AP upright chest, 03/23/2021 Clinical Data: dyspnea/cough Comparison: Portable chest, 09/04/2020. Findings: No nodules, masses or effusions are seen. The heart is normal. The pulmonary vascularity is not increased. No pneumonia or pneumothorax is seen. Monitor leads are on the chest wall. There is a gentle dextroscoliosis of the lower thoracic spine. XR/XR chest 1V portable [id number] Impression: Negative chest.
--- NOTE | 2021-03-23 06:53 | ECG_ITS ---
[facility] Test Date: 2021-03-23 Pat Name: Tomeka Marshall Department: Room: Gender: Female [employer] Intern: : 1965 Requested By: Jason Ge Order Number: [id number] Umer MD: Loyd Joseph M.D. Measurements Intervals [place] Rate: 119 P: 77 LA: 153 QRS: 88 QRSD: 101 T: 54 QT: 339 QTc: 477 Interpretive Statements SINUS TACHYCARDIA POSSIBLE LEFT ATRIAL ENLARGEMENT [-0.1mV P WAVE IN V1/V2] NONSPECIFIC ST & T-WAVE ABNORMALITY Compared to ECG 09/04/2020 13:25:20 T-wave abnormality now present Sinus rhythm no longer present ST (T wave) deviation no longer present Electronically Signed On 03-23-2021 18:43:30 CDT by Loyd Joseph M.D. [id number]
[2021-03-23 07:18] LABS: ABG PCO2 56.3 mmHg (35-45); ABG PH Result 7.41 (7.35-7.45); Alveolar-Arterial Oxygen Gradi 9.4 mmHg (5-10); Base Excess ABG 8.3 mmol/L (-2.0-2.0); Blood Gas Allen Test Pos; Blood Gas Operator Identificat CAK; Blood Gas Sample Site Radial, left; Blood Gas Sample Type Arterial; Carboxyhemoglobin 4.6 %THgb (0.4-20.1); HCO3 ABG 35.3 mmol/L (22-26); HGB O2 Sat 90.4 % (95-100); Ionized Calcium Level - ABG 1.2 mmol/L (1.1-1.4); Methemoglobin 0.6 % (0.4-1.5); Oxygen Device BIPAP; Oxygen Saturation ABG 95.5; PO2 ABG 72.7 mmHg (80.0-100.0); Potassium Level - ABG 3.6 mmol/L (3.5-5.0); Total Hemoglobin 15.3 g/dL (12-16)
[2021-03-23 07:26] LABS: Basophils # 0.1 10^3/uL (0.0-0.1); Basophils % 0.5 %; Eosinophils # 0.1 10^3/uL (0.0-0.8); Eosinophils % 1.2 %; Hematocrit 47.7 % (37.0-47.0); Hemoglobin 15.2 g/dL (11.5-15.3); Lymphocytes # 3.8 10^3/uL (0.8-4.8); Lymphocytes % 41.5 %; Mean Corpuscular HGB Conc 31.9 g/dL (30.0-36.0); Mean Corpuscular Hemoglobin 30.2 pg (28.0-34.0); Mean Corpuscular Volume 94.6 fL (81-99); Mean Platelet Volume 10.1 fL (7.4-10.4); Monocytes # 0.8 10^3/uL (0.2-0.9); Neutrophils # 4.21 10^3/uL (1.8-7.7); Neutrophils % 46.3 %; Nucleated Red Blood Cells % 0 %; Platelet Count 287 10^3/cmm (130-400); Red Blood Count 5.04 10^6/uL (4.1-5.3); Red Cell Distribution Width 12.6 % (12.1-15.1); White Blood Count 9.1 10^3/uL (4.0-10.0)
[2021-03-23] MEDS: cefTRIAXone 1,000 MG in sodium chloride 0.9% (plus) 50 ML 100 MG IV (07:27)
[2021-03-23 07:44] LABS: Ketone (Acetest) Serum Negative (Negative)
--- NOTE | 2021-03-23 07:56 | W.ED.SOB ---
HPI - SOB/Dyspnea General: Chief Complaint: ER Hold Stated Complaint: SOB Time Seen by Provider: 03/23/21 06:52 History of Present Illness: HPI Narrative: 55-year-old female presents emergency room with severe shortness of breath. She states she had started having difficulty breathing about a week and a half ago she was seen at another outside facility evidently was treated as a mild COPD exacerbation although according to her they did not initiate any new medications. She is normally on 3 L by nasal cannula for her COPD. On EMSs arrival today she was satting in the low 80s on that amount. On arrival here she is in acute respiratory distress with tachypnea labored work of breathing and audible expiratory wheezes. She reports productive cough. She denies any chest pain or abdominal pain. Prior to EMSs arrival she used 3 albuterol nebulizers with minimal results. EMS gave subcu to be laying in the field prior to arrival. Patient has not been known to test positive for Covid in the last year she had a single Covid vaccination but during the vaccination approximately 5 to 6 weeks ago MD elicited complaint: shortness of breath and cough Pertinent past history: COPD Onset (ago): week(s) (1.5) Timing: constant Severity: severe Exacerbating factors: exertion and coughing Relieving factors: oxygen, rest and bronchodilators Associated symptoms: Reports chest congestion, nausea and sense of impending doom; Deny abdominal pain, chest pain, cough, diaphoresis, dizziness, extremity pain, fever(s), hemoptysis, lightheadedness, myalgias, orthopnea, palpitations, paresthesias, polydipsia, polyuria, rash, syncope or vomiting Treatment prior to arrival: oxygen, bronchodilator and other (Terbutaline x1) Review of Systems Const: Denies: fever(s) or diaphoresis ENMT: Denies: throat pain, ear or mastoid pain, nasal discharge or nasal congestion Card: Denies: chest pain, palpitations, lightheadedness, syncope or orthopnea Resp: Reports: chest congestion; Denies: hemoptysis GI: Reports: nausea; Denies: abdominal pain or vomiting : Denies: flank pain, difficulty voiding, dysuria, urinary frequency or urinary urgency Musc: Denies: extremity pain Skin/Breast: Denies: rash or pruritus Neuro: Denies: dizziness Endo: Denies: polyuria or polydipsia [facility] ED PFS: Medical History (Updated 03/23/21 @ 16:30 by Ramses Martin MD) Acute on chronic respiratory failure with hypoxemia Anxiety and depression Bilateral pulmonary embolism -on AC with Eliquis Bipolar 2 disorder Chronic pain Chronic post-traumatic stress disorder (PTSD) COPD (chronic obstructive pulmonary disease) Chronic COPD. Chronic smoking. She is aware of the risks of cigarette smoking with COPD. GERD (gastroesophageal reflux disease) Hepatitis C virus infection cured after antiviral drug therapy Hyperlipidemia Hypertension Hypothyroidism Insomnia Obstructive sleep apnea Ovarian cyst Pneumonia Spinal stenosis Tobacco use disorder, continuous Surgical History H/O section Status post left foot surgery Family History Mother Cancer Breast cancer Social History Smoking and tobacco status: current every day smoker cigarettes Packs smoked per day: 1 Years cigarettes smoked: 30 Quit status (tobacco): considering quitting Second hand smoke exposure: No Alcohol intake: never Counseling given: No Last substance use date: 10/26/19 Household members: children Current occupational status: unemployed History of recent travel: No Physical Exam Const: GENERAL APPEARANCE: cooperative ORIENTATION/CONSCIOUSNESS: Yes awake, Yes oriented to person, Yes oriented to place and Yes oriented to time HENMT: COMMON NORMALS: normocephalic, atraumatic, hearing grossly normal bilaterally and external ears normal HEAD & SCALP: normocephalic and atraumatic EXTERNAL EAR: Yes external ears normal Neck/C-Spine: COMMON NORMALS: no JVD Resp: COMMON NORMALS: normal respiratory effort, No retractions, No use of accessory muscles and clear to auscultation bilaterally AUSCULTATION: clear to auscultation bilaterally Cardio: COMMON NORMALS: no JVD, regular rate, regular rhythm and No murmurs present (Cardio) RATE: regular rate RHYTHM: regular rhythm GI: COMMON NORMALS: Soft to palpation and No hepatosplenomegaly present AUSCULTATION: Yes normoactive bowel sounds PALPATION: Yes Soft to palpation, No Tenderness to palpation present (GI), No Guarding due to palpation present (GI) and Yes No hepatosplenomegaly present Extremity: COMMON NORMALS: normal to inspection, capillary refill normal, no clubbing, cyanosis or edema, no calf tenderness and no pedal edema Neuro: SENSORIUM/ORIENTATION: Yes oriented to person, Yes oriented to place and Yes oriented to time Skin: COMMON NORMALS: no rashes or lesions noted GENERAL SKIN EXAM: no rashes or lesions noted Course Vital Signs: Vital signs: Vital Signs Temperature 97.5 F L 03/24/21 04:00 Pulse Rate 73 03/24/21 06:00 Respiratory Rate 22 H 03/24/21 04:00 Blood Pressure 142/88 03/24/21 04:00 Pulse Oximetry 91 03/24/21 04:00 MDM - SOB/Dyspnea MDM Narrative: Medical decision making narrative: Acute COPD exacerbation. With the onset of time of a week and a half ago no suggestive findings on her chest x-ray of Covid rapid antigen is negative in immunizations 6 weeks ago I do not believe she has Covid at this point we started on antibiotics are repeating an ABG will admit to the floor for acute exacerbation COPD with coverage for pneumonia there is a little bit of increased markings at the right base. Lab Data: Labs: Lab Results 03/23/21 03/23/21 03/23/21 Range/Units 07:07 07:15 07:15 WBC 9.1 (4.0-10.0) 10^3/ uL RBC 5.04 (4.1-5.3) 10^6/u L Hgb 15.2 (11.5-15.3) g/dL Hct 47.7 H (37.0-47.0) % MCV 94.6 (81-99) fL MCH 30.2 (28.0-34.0) pg MCHC 31.9 (30.0-36.0) g/dL RDW 12.6 (12.1-15.1) % Plt Count 287 (130-400) 10^3/c mm MPV 10.1 (7.4-10.4) fL Neut % (Auto) 46.3 % Lymph % (Auto) 41.5 % Newton % (Auto) 9.0 % Eos % (Auto) 1.2 % Baso % (Auto) 0.5 % Neut # (Auto) 4.21 (1.8-7.7) 10^3/u L Lymph # (Auto) 3.8 (0.8-4.8) 10^3/u L Newton # (Auto) 0.8 (0.2-0.9) 10^3/u L Eos # (Auto) 0.1 (0.0-0.8) 10^3/u L Baso # (Auto) 0.1 (0.0-0.1) 10^3/u L Nucleated RBC % (a uto) 0 % Nucleated RBCs # 0.0 /100WBC Specimen Type Arterial Sample Site Radial, left ABG pH 7.41 (7.35-7.45) ABG pCO2 56.3 H (35-45) mmHg ABG pO2 72.7 L (80.0-100.0) mmH g ABG HCO3 35.3 H (22-26) mmol/L ABG O2 Saturation 95.5 ABG Base Excess 8.3 H (-2.0-2.0) mmol/ L Glenn Test Pos A-a O2 Gradient 9.4 (5-10) mmHg Hematocrit 47.0 (37-47) % Hgb O2 Saturation 90.4 L (95-100) % Carboxyhemoglobin 4.6 (0.4-20.1) %THgb Methemoglobin 0.6 (0.4-1.5) % Total Hemoglobin 15.3 (12-16) g/dL Sodium 137.0 (131-143) mmol/L Potassium 3.6 (3.5-5.0) mmol/L Glucose 151.0 H (70-115) mg/dL Ionized Calcium 1.2 (1.1-1.4) mmol/L O2 Delivery Device Bipap FiO2 30.0 % Test Facility Engineer ID Cak Chloride (98-107) mmol/L Carbon Dioxide (22-29) mmol/L Anion Gap (5-19) BUN (6-20) mg/dL Creatinine (0.5-0.9) mg/dL GFR Calculation (90-130) mL/min Calculated Osmolal ity (285-295) mOsm/k g Lactic Acid 1.5 (0.5-2.2) mmol/L Calcium (8.5-10.5) mg/dL Magnesium (1.7-2.3) mg/dL Total Bilirubin (0.15-1.2) mg/dL AST (0-32) U/L ALT (0-33) U/L Alkaline Phosphata se (35-105) IU/L Troponin T Baselin e (0-10) ng/L Troponin T 120 Min [place] (0-10) ng/L Delta Troponin T (0-10) ABS# Troponin T Hi Sens 6Hr (0-10) ng/L Troponin T Hi Sens 6Hr Delta (0-12) ng/L NT-Pro-B Natriuret Pep (0-125) pg/mL Total Protein (6.6-8.7) g/dL Albumin (3.5-5.2) g/dL Globulin (1.3-4.6) g/dL Procalcitonin (0-0.5) ng/mL Urine Color (Yellow) Urine Appearance (CLEAR) Urine pH (5-7) Ur Specific Gravit y (1.005-1.030) Urine Protein (Negative) Urine Glucose (UA) (Normal) Urine Ketones (Negative) Urine Blood (Negative) Urine Nitrate (Negative) Urine Bilirubin (Negative) Urine Urobilinogen (Negative) mg/dL Ur Leukocyte Eunice ase (Negative) Urine RBC (0-2) /hpf Urine WBC (0-5) /hpf Ur Squamous Epith Cells (0-5) /hpf Amorphous Sediment Urine Bacteria (NONE) /hpf Serum Ketones (Negative) SARS-CoV-2 Ag (Rap id) (Negative) 03/23/21 03/23/21 03/23/21 Range/Units 07:15 07:15 07:15 WBC (4.0-10.0) 10^3/ uL RBC (4.1-5.3) 10^6/u L Hgb (11.5-15.3) g/dL Hct (37.0-47.0) % MCV (81-99) fL MCH (28.0-34.0) pg MCHC (30.0-36.0) g/dL RDW (12.1-15.1) % Plt Count (130-400) 10^3/c mm MPV (7.4-10.4) fL Neut % (Auto) % Lymph % (Auto) % Newton % (Auto) % Eos % (Auto) % Baso % (Auto) % Neut # (Auto) (1.8-7.7) 10^3/u L Lymph # (Auto) (0.8-4.8) 10^3/u L Newton # (Auto) (0.2-0.9) 10^3/u L Eos # (Auto) (0.0-0.8) 10^3/u L Baso # (Auto) (0.0-0.1) 10^3/u L Nucleated RBC % (a uto) % Nucleated RBCs # /100WBC Specimen Type Sample Site ABG pH (7.35-7.45) ABG pCO2 (35-45) mmHg ABG pO2 (80.0-100.0) mmH g ABG HCO3 (22-26) mmol/L ABG O2 Saturation ABG Base Excess (-2.0-2.0) mmol/ L Glenn Test A-a O2 Gradient (5-10) mmHg Hematocrit (37-47) % Hgb O2 Saturation (95-100) % Carboxyhemoglobin (0.4-20.1) %THgb Methemoglobin (0.4-1.5) % Total Hemoglobin (12-16) g/dL Sodium 139 (131-143) mmol/L Potassium 3.7 (3.5-5.0) mmol/L Glucose 144 H (70-115) mg/dL Ionized Calcium (1.1-1.4) mmol/L O2 Delivery Device FiO2 % Test Facility Engineer ID Chloride 96 L (98-107) mmol/L Carbon Dioxide 35 H (22-29) mmol/L Anion Gap 11.7 (5-19) BUN 7 (6-20) mg/dL Creatinine 0.4 L (0.5-0.9) mg/dL GFR Calculation 164.5 H (90-130) mL/min Calculated Osmolal ity 289 (285-295) mOsm/k g Lactic Acid (0.5-2.2) mmol/L Calcium 9.0 (8.5-10.5) mg/dL Magnesium 2.0 (1.7-2.3) mg/dL Total Bilirubin 0.3 (0.15-1.2) mg/dL AST 13 (0-32) U/L ALT 12 (0-33) U/L Alkaline Phosphata se 108 H (35-105) IU/L Troponin T Baselin e 7 (0-10) ng/L Troponin T 120 Min [place] (0-10) ng/L Delta Troponin T (0-10) ABS# Troponin T Hi Sens 6Hr (0-10) ng/L Troponin T Hi Sens 6Hr Delta (0-12) ng/L NT-Pro-B Natriuret Pep (0-125) pg/mL Total Protein 6.9 (6.6-8.7) g/dL Albumin 4.4 (3.5-5.2) g/dL Globulin 2.5 (1.3-4.6) g/dL Procalcitonin (0-0.5) ng/mL Urine Color (Yellow) Urine Appearance (CLEAR) Urine pH (5-7) Ur Specific Gravit y (1.005-1.030) Urine Protein (Negative) Urine Glucose (UA) (Normal) Urine Ketones (Negative) Urine Blood (Negative) Urine Nitrate (Negative) Urine Bilirubin (Negative) Urine Urobilinogen (Negative) mg/dL Ur Leukocyte Eunice ase (Negative) Urine RBC (0-2) /hpf Urine WBC (0-5) /hpf Ur Squamous Epith Cells (0-5) /hpf Amorphous Sediment Urine Bacteria (NONE) /hpf Serum Ketones Negative (Negative) SARS-CoV-2 Ag (Rap id) (Negative) 03/23/21 03/23/21 03/23/21 Range/Units 07:38 08:38 09:13 WBC (4.0-10.0) 10^3/ uL RBC (4.1-5.3) 10^6/u L Hgb (11.5-15.3) g/dL Hct (37.0-47.0) % MCV (81-99) fL MCH (28.0-34.0) pg MCHC (30.0-36.0) g/dL RDW (12.1-15.1) % Plt Count (130-400) 10^3/c mm MPV (7.4-10.4) fL Neut % (Auto) % Lymph % (Auto) % Newton % (Auto) % Eos % (Auto) % Baso % (Auto) % Neut # (Auto) (1.8-7.7) 10^3/u L Lymph # (Auto) (0.8-4.8) 10^3/u L Newton # (Auto) (0.2-0.9) 10^3/u L Eos # (Auto) (0.0-0.8) 10^3/u L Baso # (Auto) (0.0-0.1) 10^3/u L Nucleated RBC % (a uto) % Nucleated RBCs # /100WBC Specimen Type Arterial Sample Site Radial, right ABG pH 7.40 (7.35-7.45) ABG pCO2 58.3 H (35-45) mmHg ABG pO2 76.0 L (80.0-100.0) mmH g ABG HCO3 36.0 H (22-26) mmol/L ABG O2 Saturation 94.8 ABG Base Excess 8.9 H (-2.0-2.0) mmol/ L Glenn Test Pos A-a O2 Gradient 8.7 (5-10) mmHg Hematocrit 43.9 (37-47) % Hgb O2 Saturation 90.1 L (95-100) % Carboxyhemoglobin 4.2 (0.4-20.1) %THgb Methemoglobin 0.8 (0.4-1.5) % Total Hemoglobin 14.3 (12-16) g/dL Sodium 139.0 (131-143) mmol/L Potassium 3.6 (3.5-5.0) mmol/L Glucose 164.0 H (70-115) mg/dL Ionized Calcium 1.2 (1.1-1.4) mmol/L O2 Delivery Device Bipap FiO2 30.0 % Test Facility Engineer ID Cak Chloride (98-107) mmol/L Carbon Dioxide (22-29) mmol/L Anion Gap (5-19) BUN (6-20) mg/dL Creatinine (0.5-0.9) mg/dL GFR Calculation (90-130) mL/min Calculated Osmolal ity (285-295) mOsm/k g Lactic Acid (0.5-2.2) mmol/L Calcium (8.5-10.5) mg/dL Magnesium (1.7-2.3) mg/dL Total Bilirubin (0.15-1.2) mg/dL AST (0-32) U/L ALT (0-33) U/L Alkaline Phosphata se (35-105) IU/L Troponin T Baselin e (0-10) ng/L Troponin T 120 Min [place] (0-10) ng/L Delta Troponin T (0-10) ABS# Troponin T Hi Sens 6Hr (0-10) ng/L Troponin T Hi Sens 6Hr Delta (0-12) ng/L NT-Pro-B Natriuret Pep (0-125) pg/mL Total Protein (6.6-8.7) g/dL Albumin (3.5-5.2) g/dL Globulin (1.3-4.6) g/dL Procalcitonin (0-0.5) ng/mL Urine Color Dark yellow (Yellow) Urine Appearance Cloudy (CLEAR) Urine pH 6 (5-7) Ur Specific Gravit y 1.015 (1.005-1.030) Urine Protein 1+ H (Negative) Urine Glucose (UA) Norm (Normal) Urine Ketones Negative (Negative) Urine Blood 2+ H (Negative) Urine Nitrate Negative (Negative) Urine Bilirubin 1+ H (Negative) Urine Urobilinogen 4 H (Negative) mg/dL Ur Leukocyte Eunice ase Trace H (Negative) Urine RBC 10-15 H (0-2) /hpf Urine WBC 5-10 H (0-5) /hpf Ur Squamous Epith Cells 0-4 H (0-5) /hpf Amorphous Sediment Not Reportable Urine Bacteria 3+ H (NONE) /hpf Serum Ketones (Negative) SARS-CoV-2 Ag (Rap id) Negative (Negative) 03/23/21 03/23/21 03/23/21 Range/Units 09:57 13:38 13:38 WBC (4.0-10.0) 10^3/ uL RBC (4.1-5.3) 10^6/u L Hgb (11.5-15.3) g/dL Hct (37.0-47.0) % MCV (81-99) fL MCH (28.0-34.0) pg MCHC (30.0-36.0) g/dL RDW (12.1-15.1) % Plt Count (130-400) 10^3/c mm MPV (7.4-10.4) fL Neut % (Auto) % Lymph % (Auto) % Newton % (Auto) % Eos % (Auto) % Baso % (Auto) % Neut # (Auto) (1.8-7.7) 10^3/u L Lymph # (Auto) (0.8-4.8) 10^3/u L Newton # (Auto) (0.2-0.9) 10^3/u L Eos # (Auto) (0.0-0.8) 10^3/u L Baso # (Auto) (0.0-0.1) 10^3/u L Nucleated RBC % (a uto) % Nucleated RBCs # /100WBC Specimen Type Sample Site ABG pH (7.35-7.45) ABG pCO2 (35-45) mmHg ABG pO2 (80.0-100.0) mmH g ABG HCO3 (22-26) mmol/L ABG O2 Saturation ABG Base Excess (-2.0-2.0) mmol/ L Glenn Test A-a O2 Gradient (5-10) mmHg Hematocrit (37-47) % Hgb O2 Saturation (95-100) % Carboxyhemoglobin (0.4-20.1) %THgb Methemoglobin (0.4-1.5) % Total Hemoglobin (12-16) g/dL Sodium (131-143) mmol/L Potassium (3.5-5.0) mmol/L Glucose (70-115) mg/dL Ionized Calcium (1.1-1.4) mmol/L O2 Delivery Device FiO2 % Test Facility Engineer ID Chloride (98-107) mmol/L Carbon Dioxide (22-29) mmol/L Anion Gap (5-19) BUN (6-20) mg/dL Creatinine (0.5-0.9) mg/dL GFR Calculation (90-130) mL/min Calculated Osmolal ity (285-295) mOsm/k g Lactic Acid (0.5-2.2) mmol/L Calcium (8.5-10.5) mg/dL Magnesium (1.7-2.3) mg/dL Total Bilirubin (0.15-1.2) mg/dL AST (0-32) U/L ALT (0-33) U/L Alkaline Phosphata se (35-105) IU/L Troponin T Baselin e (0-10) ng/L Troponin T 120 Min [place] 6.23 (0-10) ng/L Delta Troponin T -0.77 L (0-10) ABS# Troponin T Hi Sens 6Hr 6.00 (0-10) ng/L Troponin T Hi Sens 6Hr Delta -1.00 L (0-12) ng/L NT-Pro-B Natriuret Pep 122 (0-125) pg/mL Total Protein (6.6-8.7) g/dL Albumin (3.5-5.2) g/dL Globulin (1.3-4.6) g/dL Procalcitonin (0-0.5) ng/mL Urine Color (Yellow) Urine Appearance (CLEAR) Urine pH (5-7) Ur Specific Gravit y (1.005-1.030) Urine Protein (Negative) Urine Glucose (UA) (Normal) Urine Ketones (Negative) Urine Blood (Negative) Urine Nitrate (Negative) Urine Bilirubin (Negative) Urine Urobilinogen (Negative) mg/dL Ur Leukocyte Eunice ase (Negative) Urine RBC (0-2) /hpf Urine WBC (0-5) /hpf Ur Squamous Epith Cells (0-5) /hpf Amorphous Sediment Urine Bacteria (NONE) /hpf Serum Ketones (Negative) SARS-CoV-2 Ag (Rap id) (Negative) 03/23/21 03/23/21 Range/Units 13:38 13:38 WBC (4.0-10.0) 10^3/ uL RBC (4.1-5.3) 10^6/u L Hgb (11.5-15.3) g/dL Hct (37.0-47.0) % MCV (81-99) fL MCH (28.0-34.0) pg MCHC (30.0-36.0) g/dL RDW (12.1-15.1) % Plt Count (130-400) 10^3/c mm MPV (7.4-10.4) fL Neut % (Auto) % Lymph % (Auto) % Newton % (Auto) % Eos % (Auto) % Baso % (Auto) % Neut # (Auto) (1.8-7.7) 10^3/u L Lymph # (Auto) (0.8-4.8) 10^3/u L Newton # (Auto) (0.2-0.9) 10^3/u L Eos # (Auto) (0.0-0.8) 10^3/u L Baso # (Auto) (0.0-0.1) 10^3/u L Nucleated RBC % (a uto) % Nucleated RBCs # /100WBC Specimen Type Sample Site ABG pH (7.35-7.45) ABG pCO2 (35-45) mmHg ABG pO2 (80.0-100.0) mmH g ABG HCO3 (22-26) mmol/L ABG O2 Saturation ABG Base Excess (-2.0-2.0) mmol/ L Glenn Test A-a O2 Gradient (5-10) mmHg Hematocrit (37-47) % Hgb O2 Saturation (95-100) % Carboxyhemoglobin (0.4-20.1) %THgb Methemoglobin (0.4-1.5) % Total Hemoglobin (12-16) g/dL Sodium (131-143) mmol/L Potassium (3.5-5.0) mmol/L Glucose (70-115) mg/dL Ionized Calcium (1.1-1.4) mmol/L O2 Delivery Device FiO2 % Test Facility Engineer ID Chloride (98-107) mmol/L Carbon Dioxide (22-29) mmol/L Anion Gap (5-19) BUN (6-20) mg/dL Creatinine (0.5-0.9) mg/dL GFR Calculation (90-130) mL/min Calculated Osmolal ity (285-295) mOsm/k g Lactic Acid 0.7 (0.5-2.2) mmol/L Calcium (8.5-10.5) mg/dL Magnesium (1.7-2.3) mg/dL Total Bilirubin (0.15-1.2) mg/dL AST (0-32) U/L ALT (0-33) U/L Alkaline Phosphata se (35-105) IU/L Troponin T Baselin e (0-10) ng/L Troponin T 120 Min [place] (0-10) ng/L Delta Troponin T (0-10) ABS# Troponin T Hi Sens 6Hr (0-10) ng/L Troponin T Hi Sens 6Hr Delta (0-12) ng/L NT-Pro-B Natriuret Pep (0-125) pg/mL Total Protein (6.6-8.7) g/dL Albumin (3.5-5.2) g/dL Globulin (1.3-4.6) g/dL Procalcitonin 0.02 (0-0.5) ng/mL Urine Color (Yellow) Urine Appearance (CLEAR) Urine pH (5-7) Ur Specific Gravit y (1.005-1.030) Urine Protein (Negative) Urine Glucose (UA) (Normal) Urine Ketones (Negative) Urine Blood (Negative) Urine Nitrate (Negative) Urine Bilirubin (Negative) Urine Urobilinogen (Negative) mg/dL Ur Leukocyte Eunice ase (Negative) Urine RBC (0-2) /hpf Urine WBC (0-5) /hpf Ur Squamous Epith Cells (0-5) /hpf Amorphous Sediment Urine Bacteria (NONE) /hpf Serum Ketones (Negative) SARS-CoV-2 Ag (Rap id) (Negative) Discharge Plan Discharge Patient Disposition: Admitted As Inpatient Admit Provider: Ramses Martin Clinical Impression: Acute on chronic respiratory failure with hypoxia and hypercapnia, Acute exacerbation of chronic obstructive airways disease, Smoking addiction Condition: Stable Coding Level of Care Code ED Dust Collector Operator for Chg Fwd Exam Comprehensive
[2021-03-23 07:57] LABS: Lactic Sepsis W/Reflex 1.5 mmol/L (0.5-2.2)
[2021-03-23 07:58] LABS: Alanine Aminotransferase 12 U/L (0-33); Albumin Level 4.4 g/dL (3.5-5.2); Alkaline Phosphatase 108 IU/L (35-105); Anion Gap 11.7 (5-19); Aspartate Amino Transferase 13 U/L (0-32); Blood Urea Nitrogen 7 mg/dL (6-20); Carbon Dioxide 35 mmol/L (22-29); Chloride 96 mmol/L (98-107); Globulin 2.5 g/dL (1.3-4.6); Glomerular Filtration Rate 164.5 mL/min (90-130); Glucose 144 mg/dL (65-115); Osmolality Calculated 289 mOsm/kg (285-295); Potassium 3.7 mmol/L (3.5-5.1); Sodium 139 mmol/L (136-145); Total Bilirubin 0.3 mg/dL (0.15-1.2); Total Protein 6.9 g/dL (6.6-8.7); Troponin(5th) Baseline 7 ng/L (0-10)
[2021-03-23] MEDS: azithromycin 500 MG in sodium chloride 0.9% 250 ML 250 MG IV (08:00)
[2021-03-23 08:06] LABS: SARS Covid-2 Antigen Negative (Negative)
[2021-03-23 08:49] LABS: ABG PCO2 58.3 mmHg (35-45); Alveolar-Arterial Oxygen Gradi 8.7 mmHg (5-10); Arterial Blood Gas Hematocrit 43.9 % (37-47); Base Excess ABG 8.9 mmol/L (-2.0-2.0); Blood Gas Allen Test Pos; Blood Gas Sample Site Radial, right; Blood Gas Sample Type Arterial; Carboxyhemoglobin 4.2 %THgb (0.4-20.1); HGB O2 Sat 90.1 % (95-100); Ionized Calcium Level - ABG 1.2 mmol/L (1.1-1.4); Methemoglobin 0.8 % (0.4-1.5); Oxygen Device BIPAP; Oxygen Saturation ABG 94.8; Potassium Level - ABG 3.6 mmol/L (3.5-5.0); Total Hemoglobin 14.3 g/dL (12-16)
[2021-03-23 08:51] LABS: Blood Gas Operator Identificat CAK
--- NOTE | 2021-03-23 08:53 | ECG_ITS ---
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 Measurements Intervals [place] Rate: 79 P: 78 SC: 162 QRS: 83 QRSD: 101 T: 77 QT: 385 QTc: 441 Interpretive Statements SINUS RHYTHM MODERATE T-WAVE ABNORMALITY, CONSIDER ANTERIOR ISCHEMIA [-0.1+ mV T WAVE IN V3/V4] Compared to ECG 03/23/2021 07:04:56 Possible ischemia now present Sinus tachycardia no longer present T-wave abnormality still present Electronically Signed On 03-23-2021 18:59:56 CDT by Loyd Joseph M.D. [email or web address]/store/[id number] f
[2021-03-23 09:28] LABS: Add Urine Microscopic? YES; Bilirubin Urine 1+ (Negative); Blood Urine 2+ (Negative); Glucose Urine UA Norm (Normal); Ketones Urine Negative (Negative); Leukocyte Esterase Urine Trace (Negative); Nitrate Urine Negative (Negative); Protein Urine 1+ (Negative); Specific Gravity, Urine 1.015 (1.005-1.030); Urine Appearance Cloudy (CLEAR); Urine Color Dark Yellow (Yellow); Urobilinogen Urine 4 mg/dL (Negative); pH Urine 6 (5-7)
[2021-03-23 09:31] LABS: Bacteria Urine 3+ /hpf; Squamous Epithelial Cell Urine 0-4 /hpf (0-5)
[2021-03-23 09:33] LABS: Add Urine Culture? Yes
[2021-03-23 10:22] LABS: Troponin 5 2HR 6.23 ng/L (0-10)
[2021-03-23 10:24] LABS: Troponin 5 2HR Delta -0.77 ABS# (0-10)
[2021-03-23] MEDS: HYDROcodone-acetaminophen 5-325 mg Tablet 1 TAB PO (11:51)
--- NOTE | 2021-03-23 12:53 | ECG_ITS ---
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 Measurements Intervals [place] Rate: 79 P: 78 [place]: 162 QRS: 83 QRSD: 101 T: 77 QT: 385 QTc: 441 Interpretive Statements SINUS RHYTHM MODERATE T-WAVE ABNORMALITY, CONSIDER ANTERIOR ISCHEMIA [-0.1+ mV T WAVE IN V3/V4] Compared to ECG 03/23/2021 07:04:56 Possible ischemia now present Sinus tachycardia no longer present T-wave abnormality still present Electronically Signed On 03-23-2021 18:59:52 CDT by Loyd Joseph M.D. [email or web address] [email or web address].[email or web address]/store/[id number] f
--- NOTE | 2021-03-23 13:01 | USCV_ITS ---
Tomeka Marshall Age: 55 Gender: F : 1965 Exam Date: 03/23/2021 15:26 Ordering Phys: Ramses Martin MD Technologist: Exam Location: [facility] [place] Indication: CHEST PAIN BP: 141 / 89 HR: 48 Rhythm: Sinus Technical Quality: Adequate MEASUREMENTS (Male / Female) Normal Values 2D ECHO LV Diastolic Diameter PLAX 4.5 cm 4.2 - 5.9 / 3.9 - 5.3 cm LV Systolic Diameter PLAX 2.8 cm IVS Diastolic Thickness 1.0 cm 0.6 - 1.0 / 0.6 - 0.9 cm IVS Systolic Thickness 1.7 cm LVPW Diastolic Thickness 1.0 cm 0.6 - 1.0 / 0.6 - 0.9 cm LVPW Systolic Thickness 1.6 cm LVOT Diameter 2.1 cm LV Ejection Fraction 2D Teich 68.8 % LV Ejection Fraction MOD 2C 74.6 % LV Ejection Fraction 2C AL 74.5 % LA Diameter 3.5 cm LA Width 4.3 cm LA Height 4.8 cm RA Width 4.3 cm RA Height 4.4 cm DOPPLER AV Peak Velocity 138.3 cm/s LVOT Peak Velocity 100.0 cm/s AV Area Cont Eq vti 2.5 cm squared AV Area Cont Eq pk 2.5 cm squared MV Area PHT 5.0 cm squared Mitral E to A Ratio 0.8 MV E' Velocity 45.5 cm/s Mitral E to MV E' Ratio 7.9 Mitral E to LV E' Lateral Ratio 8.5 Mitral E to LV E' Septal Ratio 7.5 TR Peak Velocity 165.0 cm/s TR Peak Gradient 10.9 mmHg TV Peak E Velocity 83.0 cm/s Right Atrial Pressure 3.0 mmHg Pulmonary Artery Systolic Pressu 13.9 mmHg PV Peak Velocity 73.0 cm/s FINDINGS Left Ventricle Normal left ventricular cavity size. Normal left ventricular systolic function. No regional wall motion abnormalities. Left ventricular ejection fraction is estimated at 68 %. Grade I/IV diastolic dysfunction (abnormal relaxation filling pattern), normal to mildly elevated filling pressures. Right Ventricle The right ventricle is normal in size and function. Right Atrium The right atrium is normal in size. Left Atrium The left atrium is normal in size. Mitral Valve Structurally normal mitral valve without significant stenosis or prolapse. There is no mitral regurgitation. Aortic Valve Structurally normal aortic valve without significant sclerosis or stenosis. There is no aortic regurgitation. Tricuspid Valve Structurally normal tricuspid valve without significant stenosis or regurgitation. Pulmonary artery systolic pressure is normal. Pulmonic Valve Structurally normal pulmonic valve without significant stenosis. There is no pulmonic regurgitation. Pericardium Normal pericardium without effusion. Aorta Normal ascending aorta dimension. CONCLUSIONS 1-Normal left ventricular cavity size. Normal left ventricular systolic function. No regional wall motion abnormalities. Left ventricular ejection fraction is estimated at 68 %. Grade I/IV diastolic dysfunction (abnormal relaxation filling pattern), normal to mildly elevated filling pressures. 2-No significant valve abnormalities. 3-There is no pericardial effusion. 4-Pulmonary artery systolic pressure is within normal limits. 5-Right atrial pressure is around 5 mm of mercury. 6-No significant change since the prior echocardiogram study of 10/22/2019. Eduin Easton MD (Electronically Signed) Final Date: 24 March 2021 20:21 S
[2021-03-23] MEDS: FUROsemide 10 mg/mL SDV 4mL 40 MG IVP (14:04)
[2021-03-23] MEDS: pantoprazole 40 mg SDV IVP (14:04)
[2021-03-23 14:34] LABS: Lactic Sepsis W/Reflex 0.7 mmol/L (0.5-2.2)
[2021-03-23 14:47] LABS: NT Pro B Type Natriuretic Pept 122 pg/mL (0-125)
[2021-03-23 14:48] LABS: Procalcitonin 0.02 ng/mL (0-0.5)
--- NOTE | 2021-03-23 15:28 | PM.HP ---
Providers/Chief Complaint Admitting Physician: Ramses Martin MD Primary Care Provider: OSCAR Montoya Chief Complaint: SOB History of Present Illness Tomeka Marshall is a 55 year old female with a past medical history of COPD, 3 to 4 L oxygen dependent acute on chronic hypercarbic respiratory failure, history of pulmonary emboli on Eliquis, noninsulin-dependent type II days mellitus, hypothyroidism, current smoker who presents [facility] due to shortness of breath. Patient tells me that she was at [facility], she was short of breath there, they did give her antibiotics, they sent her out the door. And now she is here. She tells me for the last few days she has been having increased shortness of breath, shortness of with it with exertion, no chest pain, palpitations, has a productive cough, intermittent fevers, no chills, no nausea, vomiting. She received the first dose of the Covid vaccine. In the emergency room she was found to have acute hypoxic hypercarbic respiratory failure, she was placed on BiPAP, she clinically improved, repeat ABG shows a PCO2 50.3, PO2 76, bicarb 36, pH 7.4. Patient is able to speak full sentences, no active respiratory distress, I was able to get a full history from her and put her back on the BiPAP. She tells me that she feels better with BiPAP therapy. Patient will be admitted to the ICU for acute on chronic hypoxic hypercarbic respiratory failure, she also is noted to have a UTI. Review of Systems Const: Reports: fever(s); Denies: chills, fatigue or malaise Eyes: Denies: change in vision or blurry vision ENMT: Denies: nasal congestion Card: Denies: chest pain, palpitations or edema Resp: Reports: dyspnea and non-productive cough; Denies: productive cough or wheezing GI: Denies: abdominal pain, nausea, vomiting, hematemesis, diarrhea, constipation, hematochezia or melena : Denies: flank pain, dysuria or urinary frequency Musc: Denies: neck pain or back pain Skin/Breast: Denies: rash Neuro: Denies: headache(s), dizziness or vertigo Psych: Denies: anxiety or depression Endo: Denies: polyuria or polydipsia Medications/Allergies Home Medications Medication Instructions Recorded Confirmed Last Taken Type atorvastatin [Lipitor] 20 mg PO QPM 10/22/19 03/23/21 03/22/21 History gabapentin 300 mg PO TID 10/22/19 03/23/21 03/22/21 History glimepiride 2 mg PO DAILY 10/22/19 03/23/21 03/22/21 History omeprazole 40 mg PO DAILY 10/22/19 03/23/21 03/22/21 History apixaban 5 mg tablet 5 mg PO BID tab 02/12/20 03/23/21 03/22/21 History levothyroxine 100 mcg capsule 100 mcg PO DAILY 02/12/20 03/23/21 03/22/21 History Spiriva with HandiHaler 1 cap INHALATION DAILY 05/28/20 03/23/21 03/22/21 History albuterol sulfate 2 inh INHALATION Q4H PRN #18 gm 05/28/20 03/23/21 09/04/20 Rx montelukast 10 mg PO DAILY 05/28/20 03/23/21 03/22/21 History budesonide-formoterol [Symbicort] 2 puff INHALATION BID 07/15/20 03/23/21 03/22/21 History fluticasone propionate [Flonase 1 spray INTRANASAL BID 07/15/20 03/23/21 09/03/20 History Allergy Relief] metformin 500 mg PO BID 07/15/20 03/23/21 03/22/21 History ipratropium-albuterol 3 ml INHALATION Q4H PRN #180 ml 09/06/20 03/23/21 Unknown Rx modafinil 200 mg tablet 200 mg PO DAILY #30 tab 03/01/21 03/23/21 03/22/21 Rx duloxetine 60 mg capsule,delayed 120 mg PO QAM #60 cap 03/09/21 03/23/21 03/22/21 Rx release lamotrigine 100 mg tablet 100 mg PO BID #60 tab 03/09/21 03/23/21 03/22/21 Rx trazodone 150 mg PO BEDTIME PRN 03/23/21 03/23/21 03/22/21 History Allergies Allergy/AdvReac Type Severity Reaction Status Date / Time levofloxacin [From Levaquin] Allergy ADR-Abdominal Verified 02/27/21 15:20 Pain Sulfa (Sulfonamide Allergy ADR-Blurry Verified 02/27/21 15:20 Antibiotics) Vision PFSH Acute PFSH: Medical History (Updated 03/23/21 @ 16:30 by Ramses Martin MD) Acute on chronic respiratory failure with hypoxemia Anxiety and depression Bilateral pulmonary embolism -on AC with Eliquis Bipolar 2 disorder Chronic pain Chronic post-traumatic stress disorder (PTSD) COPD (chronic obstructive pulmonary disease) Chronic COPD. Chronic smoking. She is aware of the risks of cigarette smoking with COPD. GERD (gastroesophageal reflux disease) Hepatitis C virus infection cured after antiviral drug therapy Hyperlipidemia Hypertension Hypothyroidism Insomnia Obstructive sleep apnea Ovarian cyst Pneumonia Spinal stenosis Tobacco use disorder, continuous Surgical History H/O section Status post left foot surgery Family History Mother Cancer Breast cancer Social History Smoking and tobacco status: current every day smoker cigarettes Packs smoked per day: 1 Years cigarettes smoked: 30 Quit status (tobacco): considering quitting Second hand smoke exposure: No Alcohol intake: never Counseling given: No Last substance use date: 10/26/19 Household members: children Current occupational status: unemployed History of recent travel: No Vitals/I&O/Wt Last Vital Signs Temp 98.6 F 03/23/21 06:51 Pulse 78 03/23/21 14:44 Resp 22 H 03/23/21 14:44 BP 144/87 03/23/21 14:44 Pulse Ox 98 03/23/21 14:44 03/23/21 03/23/21 03/23/21 06:59 14:59 22:59 Intake Total 300 / 300 Balance 300 / 300 Weight last 48 hrs Weight 106.594 kg Physical Exam Const: COMMON NORMALS: no acute distress and patient oriented x3 Eye: COMMON NORMALS: Equal, round and reactive pupils present and EOMs intact bilaterally GENERAL EYE: appearance normal, both eyes and all related structures PUPIL: Yes Equal, round and reactive pupils present Neck/C-Spine: COMMON NORMALS: full ROM, no JVD and Thyroid normal Lymph: LYMPHATIC: no lymphadenopathy noted Resp: COMMON NORMALS: normal respiratory effort, No retractions and No use of accessory muscles EFFORT & INSPECTION: Yes able to speak in complete sentences AUSCULTATION: crackles and wheezes Cardio: COMMON NORMALS: regular rate, regular rhythm, S1 normal heart sound present, S2 normal heart sound present, No gallops present (Cardio), No clicks present (Cardio) and No murmurs present (Cardio) RATE: regular rate RHYTHM: regular rhythm HEART SOUNDS: S1 normal heart sound present and S2 normal heart sound present GI: COMMON NORMALS: Normal to inspection, nondistended, normoactive bowel sounds present, Soft to palpation, non-tender and No hepatosplenomegaly present PALPATION: Yes Soft to palpation and Yes No hepatosplenomegaly present Extremity: COMMON NORMALS: normal to inspection, full ROM and no pedal edema Neuro: COMMON NORMALS: patient oriented x3, CN's II-XII intact bilaterally, moves all extremities and no focal motor deficits Psych: COMMON NORMALS: mental status grossly normal, Normal thought process present and cooperative THOUGHT PROCESS: Normal thought process present Data : 03/23/21 07:15 03/23/21 07:15 Micro: Microbiology 03/23/21 13:38 Blood Culture - Preliminary Blood SPECIMEN COLLECTED 03/23/21 13:30 Blood Culture - Preliminary Blood SPECIMEN COLLECTED A&P Assessment and plan (1) Acute on chronic respiratory failure with hypoxia and hypercapnia: -Secondary to COPD exacerbation Plan: -Admit to ICU -Continue BiPAP therapy, can be used as needed during the day, schedule during the night -Rocephin and azithromycin for antibiotic coverage -Solu-Medrol 40 every 8 hours -Lasix 40 mg IV one-time, will get a cardiac echo -DuoNeb every 4 hours -Low-dose insulin sliding scale -Follow blood cultures, sputum cultures, monitor for fevers, urine cultures -Full code -Eliquis for DVT prophylaxis -Protonix for GI prophylaxis Status: Acute (2) Non-insulin dependent type 2 diabetes mellitus: Status: Acute (3) Hyperlipidemia: Status: Acute Qualifiers: Hyperlipidemia type: unspecified Qualified Code(s): E78.5 - Hyperlipidemia, unspecified (4) Hypertension: Status: Acute Qualifiers: Hypertension type: essential hypertension Qualified Code(s): I10 - Essential (primary) hypertension (5) Hypothyroidism: Status: Acute Qualifiers: Hypothyroidism type: unspecified Qualified Code(s): E03.9 - Hypothyroidism, unspecified (6) Bilateral pulmonary embolism: Status: Acute Attestations Medical Necessity Statement*: Patient requires hospitalization, inpatient, greater than 2 minutes, for acute on chronic hypoxic hypercarbic respiratory failure Coding Level of Care Code 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
[2021-03-23] MEDS: ipratropium-albuterol 3 mL Neb INHALATION ×3 (16:22→23:00)
[2021-03-23 17:21] LABS: Glucose Point of Care 189 mg/dL (70-110)
[2021-03-23] MEDS: amlodipine 10 mg Tablet PO (17:27)
[2021-03-23] MEDS: atorvastatin 40 mg Tablet 20 MG PO (17:27)
[2021-03-23] MEDS: lamoTRIgine 100 mg Tablet PO (17:28)
[2021-03-23 18:57] LABS: Troponin(5th) Baseline 6 ng/L (0-10)
[2021-03-23] MEDS: apixaban 5 mg Tablet PO (20:50)
[2021-03-23] MEDS: acetaminophen 325 mg Tablet 650 MG PO (20:50)
[2021-03-23 21:00] LABS: Troponin 5 2HR Delta 0 ABS# (0-10)
--- NOTE | 2021-03-23 23:47 | ECG_ITS ---
[facility] Test Date: 2021-03-23 Pat Name: Tomeka Marshall Department: Room: ICU07 Gender: Female Guide Escort: : 1965 Requested By: Ramses Martin Order Number: [id number] Umer MD: Loyd Joseph M.D. Measurements Intervals [place] Rate: 65 P: 78 DC: 164 QRS: 88 QRSD: 104 T: 85 QT: 421 QTc: 439 Interpretive Statements SINUS RHYTHM MODERATE ST DEPRESSION [0.05+ mV ST DEPRESSION] Compared to ECG 03/23/2021 09:41:54 ST (T wave) deviation now present T-wave abnormality no longer present Possible ischemia no longer present Electronically Signed On 03-23-2021 18:55:50 CDT by Loyd Joseph M.D. [id number]
[2021-03-24] VITALS (25 sets, daily range): BP systolic 131–163; BP diastolic 72–101; PULSE 59–102; RESP 16–34; TEMP 36.4–37.1; O2SAT 89–95
[2021-03-24 00:06] LABS: Troponin 5 6HR Delta 0 ng/L (0-12)
[2021-03-24] MEDS: pantoprazole 40 mg SDV IVP ×2 (00:49→14:32)
[2021-03-24] MEDS: trazodone 150 mg Tablet PO ×2 (01:46→20:58)
[2021-03-24] MEDS: ibuprofen 200 mg Tablet 400 MG PO (01:46)
--- NOTE | 2021-03-24 01:48 | PC.NURSE ---
Pain/Anxiety Pt tossing and turning continuously in bed with increasing anxiety, tangled up in bedside monitor cords. Pt experiencing dyspnea with exertion. Reports pain to hips and lower back unrelieved by Tylenol pt requesting home dose of trazadone. Dr. Bethea notified and received verbal orders for Motrin and trazadone.
[2021-03-24] MEDS: ipratropium-albuterol 3 mL Neb INHALATION ×5 (03:51→20:11)
[2021-03-24 04:58] LABS: Arterial Blood Gas Hematocrit 43.2 % (37-47); Base Excess ABG 10.7 mmol/L (-2.0-2.0); Blood Gas Allen Test Pos; Blood Gas Operator Identificat JB; Blood Gas Sample Site Radial, left; Blood Gas Sample Type Arterial; Oxygen Device BIPAP; PO2 ABG 64.8 mmHg (80.0-100.0)
[2021-03-24 05:00] LABS: ABG PCO2 60.9 mmHg (35-45)
[2021-03-24 05:30] LABS: Basophils % 0.3 %; Eosinophils % 0.4 %; Hematocrit 42.9 % (37.0-47.0); Hemoglobin 13.7 g/dL (11.5-15.3); Lymphocytes # 2.5 10^3/uL (0.8-4.8); Lymphocytes % 31.2 %; Mean Corpuscular HGB Conc 31.9 g/dL (30.0-36.0); Mean Corpuscular Hemoglobin 30.4 pg (28.0-34.0); Mean Corpuscular Volume 95.3 fL (81-99); Mean Platelet Volume 10.4 fL (7.4-10.4); Monocytes # 0.7 10^3/uL (0.2-0.9); Monocytes % 8.1 %; Neutrophils # 4.72 10^3/uL (1.8-7.7); Nucleated Red Blood Cells % 0 %; Platelet Count 219 10^3/cmm (130-400); Red Cell Distribution Width 12.4 % (12.1-15.1)
[2021-03-24 05:34] LABS: INR 1.02 (0.8-1.2)
[2021-03-24 06:00] LABS: Alanine Aminotransferase 13 U/L (0-33); Albumin Level 3.6 g/dL (3.5-5.2); Alkaline Phosphatase 92 IU/L (35-105); Anion Gap 9.6 (5-19); Aspartate Amino Transferase 13 U/L (0-32); Blood Urea Nitrogen 10 mg/dL (6-20); Calcium 8.8 mg/dL (8.5-10.5); Carbon Dioxide 35 mmol/L (22-29); Chloride 98 mmol/L (98-107); Chol HDL Ratio 2.45 mg/dL (0.0-4.40); Cholesterol 115 mg/dL (0-200); Globulin 2.7 g/dL (1.3-4.6); Glomerular Filtration Rate 229.3 mL/min (90-130); Glucose 102 mg/dL (65-115); HDL Cholesterol 47 mg/dL (60-100); LDL Cholesterol Calculated 49 mg/dL (50-129); LDL HDL Ratio 1.04 RATIO (0.00-3.22); NT Pro B Type Natriuretic Pept 85 pg/mL (0-125); Osmolality Calculated 287 mOsm/kg (285-295); Phosphorus 3.6 mg/dL (2.5-4.5); Potassium 3.6 mmol/L (3.5-5.1); Sodium 139 mmol/L (136-145); Thyroid Stimulating Hormone 0.65 uIU/mL (0.27-4.20); Total Bilirubin 0.3 mg/dL (0.15-1.2); Total Protein 6.3 g/dL (6.6-8.7); Triglycerides 97 mg/dL (0-150)
--- NOTE | 2021-03-24 07:00 | XR_ITS ---
WS: [id number] Portable AP upright chest, 03/24/2021 Clinical Data: sob Comparison: Portable chest, 03/23/2021 Findings: No nodules, masses or effusions are seen. The heart is normal. The pulmonary vascularity is not increased. No pneumonia or pneumothorax is seen. Monitor leads are on the chest wall. There is a dextroscoliosis of the lower thoracic spine. XR/XR chest 1V portable [id number] Impression: Negative chest.
[2021-03-24] MEDS: duloxetine 60 mg Capsule 120 MG PO (08:13)
[2021-03-24] MEDS: cefTRIAXone 1,000 MG in sodium chloride 0.9% (plus) 50 ML 100 MG IV (08:15)
[2021-03-24] MEDS: azithromycin 500 MG in sodium chloride 0.9% 250 ML 250 MG IV (08:16)
[2021-03-24] MEDS: levothyroxine 100 mcg Tablet PO (10:38)
[2021-03-24] MEDS: lamoTRIgine 100 mg Tablet PO ×2 (10:39→18:22)
[2021-03-24] MEDS: apixaban 5 mg Tablet PO ×2 (10:40→20:58)
--- NOTE | 2021-03-24 10:57 | PC.PT ---
Pt was attempted for eval and refused. Evaluation was attempted a second time and she refused stating I don't want to get up. Nurse Talita was in the room and states she was independent with getting up and getting to the bedside commode. OT therapist saw the patient and reported she was independent and would not need PT at this time. Since patient refused twice and she is independent will not pick her up at this time.
[2021-03-24 11:45] LABS: Glucose Point of Care 403 mg/dL (70-110)
--- NOTE | 2021-03-24 15:16 | PC.RESP ---
Smoking Cessation and Pulmonary Rehab information sent to patient.
--- NOTE | 2021-03-24 16:02 | PM.PN ---
Subjective Subjective: Interval history: Patient was seen this morning, she had a good night, she got some sleep, she tolerated the BiPAP well, no fevers, no chills, no nausea, no vomiting, continues to have a cough, she does not like her cardiac diet, she wants her diet to be switched Vitals/I&O/Wt Last Vital Signs Temp 97.5 F L 03/24/21 04:00 Pulse 69 03/24/21 15:59 Resp 18 03/24/21 15:56 BP 136/74 03/24/21 12:00 Pulse Ox 92 03/24/21 15:56 03/24/21 03/24/21 03/24/21 06:59 14:59 22:59 Intake Total 240 / 990 780 / 780 Output Total 0 / 0 850 / 850 Balance 240 / 990 -70 / -70 Weight last 48 hrs Weight 98.475 kg Weight 106.594 kg Physical Exam Const: COMMON NORMALS: no acute distress and patient oriented x3 Resp: COMMON NORMALS: normal respiratory effort, No retractions and No use of accessory muscles AUSCULTATION: wheezes Cardio: COMMON NORMALS: regular rate, regular rhythm, S1 normal heart sound present and S2 normal heart sound present RATE: regular rate RHYTHM: regular rhythm HEART SOUNDS: S1 normal heart sound present and S2 normal heart sound present GI: COMMON NORMALS: Normal to inspection, nondistended, normoactive bowel sounds present, Soft to palpation, non-tender and No hepatosplenomegaly present PALPATION: Yes Soft to palpation and Yes No hepatosplenomegaly present Extremity: COMMON NORMALS: no pedal edema Neuro: COMMON NORMALS: patient oriented x3 Psych: COMMON NORMALS: mental status grossly normal Data : 03/24/21 04:47 03/24/21 04:47 Micro: Microbiology 03/23/21 13:30 Blood Culture - Preliminary Blood NEGATIVE TO DATE 03/23/21 13:38 Blood Culture - Preliminary Blood NEGATIVE TO DATE 03/23/21 09:13 Urine Culture - Preliminary Urine,Clean Catch Gram Negative Rods A&P Assessment and plan (1) Acute on chronic respiratory failure with hypoxia and hypercapnia: -Secondary to COPD exacerbation Plan: -We will move her to the general medical floors -Continue BiPAP therapy, can be used as needed during the day, schedule during the night -Rocephin and azithromycin for antibiotic coverage -Solu-Medrol 40 every 8 hours -Hold off on Lasix, awaiting cardiac echo -DuoNeb every 4 hours -Low-dose insulin sliding scale -Follow blood cultures, sputum cultures, monitor for fevers, urine cultures -Full code -Eliquis for DVT prophylaxis -Protonix for GI prophylaxis Status: Acute (2) Non-insulin dependent type 2 diabetes mellitus: Status: Acute (3) Hyperlipidemia: Status: Acute Qualifiers: Hyperlipidemia type: unspecified Qualified Code(s): E78.5 - Hyperlipidemia, unspecified (4) Hypertension: Status: Acute Qualifiers: Hypertension type: essential hypertension Qualified Code(s): I10 - Essential (primary) hypertension (5) Hypothyroidism: Status: Acute Qualifiers: Hypothyroidism type: unspecified Qualified Code(s): E03.9 - Hypothyroidism, unspecified (6) Bilateral pulmonary embolism: Status: Acute Attestations Medical Necessity Statement*: Patient requires hospitalization for acute hypoxic respiratory failure secondary to COPD, critical care time spent over 35 minutes Coding Level of 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
[2021-03-24] MEDS: amlodipine 10 mg Tablet PO (18:22)
[2021-03-24] MEDS: atorvastatin 40 mg Tablet 20 MG PO (18:23)
[2021-03-24 18:30] LABS: Glucose Point of Care 159 mg/dL (70-110)
[2021-03-24 18:30] LABS: Glucose Point of Care 110 mg/dL (70-110)
--- NOTE | 2021-03-24 19:59 | PC.NURSE ---
1850: had a run of idioventriclular rhythm. dr chan notified and pt to be kept in icu. staff unable to cancel transfer order. message left fordr. chao to call.
[2021-03-24] MEDS: acetaminophen 325 mg Tablet 650 MG PO (20:57)
[2021-03-24 21:11] LABS: Glucose Point of Care 227 mg/dL (70-110)
[2021-03-25] VITALS (25 sets, daily range): BP systolic 131–163; BP diastolic 74–94; PULSE 62–108; RESP 16–30; TEMP 36.7–36.9; O2SAT 89–97
[2021-03-25] MEDS: pantoprazole 40 mg SDV IVP (00:49)
[2021-03-25] MEDS: ipratropium-albuterol 3 mL Neb INHALATION ×7 (00:51→23:07)
--- NOTE | 2021-03-25 01:08 | PC.NURSE ---
Frequent episodes of idioventricular rhythm. EKG obtained. MD Batsheva notified of results and frequency of heart rhythm. New orders to obtain labs. 3 RN's and lab director unable to draw labs. notified. Orders given to notify physician if patient becomes symptomatic. Patient currently resting at this time. Frequency of idioventricular rhythm recorded every 10-15 mins. Patient remains asymptomatic at this time.
--- NOTE | 2021-03-25 01:48 | ECG_ITS ---
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: : 1965 Requested By: Tolu Herman Order Number: [id number] Reading MD: PRIYA ERAZO Measurements Intervals [place] Rate: 88 P: 262 NC: 138 QRS: 253 QRSD: 151 T: 75 QT: 468 QTc: 567 Interpretive Statements JUNCTIONAL RHYTHM INTRAVENTRICULAR CONDUCTION DELAY [130+ ms QRS DURATION] POSSIBLE RIGHT VENTRICULAR HYPERTROPHY [SOME/ALL OF: PROMINENT R IN V1, LATE TRANSITION, RAD, RUSSELL, SSS] INFERIOR MYOCARDIAL INFARCTION [40+ ms Q WAVE AND/OR ST/T ABNORMALITY IN II/aVF], POSSIBLY ACUTE ANTEROLATERAL MYOCARDIAL INFARCTION [40+ ms Q WAVE IN I/aVL/V3-V6], PROBABLY old INTERPRETATION BASED ON A DEFAULT AGE OF 40 YEARS Compared to ECG 03/23/2021 18:04:23 Junctional rhythm now present Electronically Signed On 03-25-2021 20:24:01 CDT by PRIYA ERAZO [id number]
[2021-03-25 05:25] LABS: Arterial Blood Gas Hematocrit 46.2 % (37-47); Base Excess ABG 8.5 mmol/L (-2.0-2.0); Blood Gas Allen Test Pos; Blood Gas Operator Identificat JB; Blood Gas Sample Site Radial, right; Blood Gas Sample Type Arterial; HCO3 ABG 35.5 mmol/L (22-26); Oxygen Device NC; PO2 ABG 64.2 mmHg (80.0-100.0)
--- NOTE | 2021-03-25 05:48 | ECG_ITS ---
Test Date: 2021-03-25 Pat Name: Tomeka Marshall Department: Room: ICU07 Gender: Female Width Stripper: : 1965 Requested By: Tolu Herman Order Number: [id number] Reading MD: PRIYA ERAZO Measurements Intervals [place] Rate: 68 P: 71 ND: 168 QRS: 82 QRSD: 102 T: 75 QT: 393 QTc: 420 Interpretive Statements SINUS RHYTHM ST DEVIATION AND MODERATE T-WAVE ABNORMALITY, CONSIDER ANTERIOR ISCHEMIA [-0.1+ mV T WAVE IN V3/V4] Compared to ECG 03/23/2021 18:04:23 T-wave abnormality now present Possible ischemia now present ST (T wave) deviation no longer present Electronically Signed On 03-25-2021 20:23:17 CDT by PRIYA ERAZO [id number]
[2021-03-25] MEDS: duloxetine 60 mg Capsule 120 MG PO (06:43)
[2021-03-25 07:55] LABS: Glucose Point of Care 192 mg/dL (70-110)
--- NOTE | 2021-03-25 08:01 | PC.NURSE ---
Pt agrees to have lab drawn this am. Explained the importance and she agrees to let them try again. Lab called and notified. State that it may be a little while do to so many draws hospital wide this am.
[2021-03-25] MEDS: lamoTRIgine 100 mg Tablet PO ×2 (08:16→17:12)
[2021-03-25] MEDS: levothyroxine 100 mcg Tablet PO (08:16)
[2021-03-25] MEDS: azithromycin 500 MG in sodium chloride 0.9% 250 ML 250 MG IV (08:17)
[2021-03-25] MEDS: cefTRIAXone 1,000 MG in sodium chloride 0.9% (plus) 50 ML 100 MG IV (08:17)
--- NOTE | 2021-03-25 11:52 | ECG_ITS ---
[facility] Test Date: 2021-03-25 Pat Name: Tomeka Marshall Department: Room: 107 Gender: Female Minister Helper: : 1965 Requested By: Ramses Martin Order Number: [id number] Reading MD: PRIYA ERAZO Measurements Intervals [place] Rate: 96 P: 80 TN: 147 QRS: 90 QRSD: 103 T: 90 QT: 362 QTc: 459 Interpretive Statements SINUS RHYTHM NONSPECIFIC ST & T-WAVE ABNORMALITY WARNING: DATA QUALITY MAY AFFECT INTERPRETATION INTERPRETATION BASED ON A DEFAULT AGE OF 40 YEARS Compared to ECG 03/25/2021 01:43:48 Possible ischemia no longer present T-wave abnormality still present Electronically Signed On 03-25-2021 20:19:36 CDT by PRIYA ERAZO [id number]
[2021-03-25] MEDS: apixaban 5 mg Tablet PO ×2 (11:53→20:49)
[2021-03-25] MEDS: aspirin 81 mg EC Tablet PO (11:53)
[2021-03-25] MEDS: ibuprofen 200 mg Tablet 400 MG PO (11:53)
[2021-03-25 12:08] LABS: Glucose Point of Care 201 mg/dL (70-110)
[2021-03-25 12:37] LABS: Basophils % 0.1 %; Hematocrit 46.4 % (37.0-47.0); Hemoglobin 15.5 g/dL (11.5-15.3); Lymphocytes % 6.5 %; Mean Corpuscular HGB Conc 33.4 g/dL (30.0-36.0); Mean Corpuscular Hemoglobin 30.2 pg (28.0-34.0); Mean Corpuscular Volume 90.3 fL (81-99); Mean Platelet Volume 10.6 fL (7.4-10.4); Monocytes # 0.6 10^3/uL (0.2-0.9); Monocytes % 3.6 %; Neutrophils # 13.78 10^3/uL (1.8-7.7); Nucleated Red Blood Cells % 0 %; Platelet Count 255 10^3/cmm (130-400); Red Blood Count 5.14 10^6/uL (4.1-5.3); Red Cell Distribution Width 12.3 % (12.1-15.1); White Blood Count 15.5 10^3/uL (4.0-10.0)
[2021-03-25 13:00] LABS: Troponin(5th) Baseline 6 ng/L (0-10)
--- NOTE | 2021-03-25 13:01 | PC.NURSE ---
Pt refusing to be stuck again for an IV. Dr. Martin notified. States to see if anyone in ER can attempt. Pt. Continues to refuse any staff that attempts.
[2021-03-25 13:05] LABS: Alanine Aminotransferase 16 U/L (0-33); Albumin Level 4.3 g/dL (3.5-5.2); Alkaline Phosphatase 103 IU/L (35-105); Blood Urea Nitrogen 10 mg/dL (6-20); Calcium 9.5 mg/dL (8.5-10.5); Carbon Dioxide 30 mmol/L (22-29); Chloride 93 mmol/L (98-107); Globulin 2.6 g/dL (1.3-4.6); Glomerular Filtration Rate 164.5 mL/min (90-130); Glucose 174 mg/dL (65-115); NT Pro B Type Natriuretic Pept 57 pg/mL (0-125); Osmolality Calculated 283 mOsm/kg (285-295); Phosphorus 3.2 mg/dL (2.5-4.5); Sodium 135 mmol/L (136-145); Total Bilirubin 0.3 mg/dL (0.15-1.2); Total Protein 6.9 g/dL (6.6-8.7)
[2021-03-25 13:18] LABS: Anion Gap 16.6 (5-19); Aspartate Amino Transferase 12 U/L (0-32); Potassium 4.6 mmol/L (3.5-5.1)
--- NOTE | 2021-03-25 13:29 | P.PN_ITS ---
Subjective Subjective: Interval history: Patient was seen this morning, she is on 4 L, overnight she had episodes of a junctional rhythm, no chest pain, no palpitations, denies a cardiovascular history, is a smoker Vitals/I&O/Wt Last Vital Signs Temp 98.1 F 03/25/21 10:00 Pulse 87 03/25/21 11:23 Resp 18 03/25/21 11:15 BP 131/80 03/25/21 08:00 Pulse Ox 96 03/25/21 11:15 03/24/21 03/25/21 03/25/21 22:59 06:59 14:59 Intake Total 730 / 1510 450 / 450 Output Total 800 / 1650 950 / 2600 Balance -70 / -140 -950 / -1090 450 / 450 Weight last 48 hrs Weight 100.21 kg Weight 98.475 kg Physical Exam Const: COMMON NORMALS: no acute distress and patient oriented x3 Resp: COMMON NORMALS: normal respiratory effort, No retractions, No use of accessory muscles and clear to auscultation bilaterally AUSCULTATION: clear to auscultation bilaterally Cardio: COMMON NORMALS: regular rate, regular rhythm, S1 normal heart sound present and S2 normal heart sound present RATE: regular rate RHYTHM: regular rhythm HEART SOUNDS: S1 normal heart sound present and S2 normal heart sound present GI: COMMON NORMALS: Normal to inspection, nondistended, normoactive bowel sounds present, Soft to palpation and non-tender PALPATION: Yes Soft to palpation Extremity: COMMON NORMALS: no pedal edema Neuro: COMMON NORMALS: patient oriented x3 Psych: COMMON NORMALS: mental status grossly normal Data : 03/25/21 11:51 03/25/21 11:51 Micro: Microbiology 03/23/21 09:13 Urine Culture - Final Urine,Clean Catch Escherichia coli 03/23/21 13:30 Blood Culture - Preliminary Blood NEGATIVE TO DATE 03/23/21 13:38 Blood Culture - Preliminary Blood NEGATIVE TO DATE A&P Assessment and plan (1) Acute on chronic respiratory failure with hypoxia and hypercapnia: -Secondary to COPD exacerbation Plan: -We will move her to the general medical floors -Continue BiPAP therapy, can be used as needed during the day, schedule during the night -Rocephin and azithromycin for antibiotic coverage -Solu-Medrol 40 every 8 hours -Hold off on Lasix -DuoNeb every 4 hours -Low-dose insulin sliding scale -Follow blood cultures, sputum cultures, monitor for fevers, urine cultures -Full code -Eliquis for DVT prophylaxis -Protonix for GI prophylaxis Status: Acute (2) Non-insulin dependent type 2 diabetes mellitus: Status: Acute (3) Hyperlipidemia: Status: Acute Qualifiers: Hyperlipidemia type: unspecified Qualified Code(s): E78.5 - Hyperlipidemia, unspecified (4) Hypertension: Status: Acute Qualifiers: Hypertension type: essential hypertension Qualified Code(s): I10 - Essential (primary) hypertension (5) Hypothyroidism: Status: Acute Qualifiers: Hypothyroidism type: unspecified Qualified Code(s): E03.9 - Hypothyroidism, unspecified (6) Bilateral pulmonary embolism: Status: Acute (7) Junctional rhythm: -EKGs and telemetry showed EKG, and telemetry monitoring showed junctional rhythm, with some lateral ST depressions -echo: 1-Normal left ventricular cavity size. Normal left ventricular systolic function. No regional wall motion abnormalities. Left ventricular ejection fraction is estimated at 68 %. Grade I/IV diastolic dysfunction (abnormal relaxation filling pattern), normal to mildly elevated filling pressures. 2-No significant valve abnormalities. 3-There is no pericardial effusion. 4-Pulmonary artery systolic pressure is within normal limits. 5-Right atrial pressure is around 5 mm of mercury. 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
[2021-03-25 15:16] LABS: Troponin 5 2HR Delta 0 ABS# (0-10)
--- NOTE | 2021-03-25 15:25 | PC.NURSE ---
received into room 107 from icu at 1330.pt is alert and awake and oriented x 4.denies pain at present.sr on monitor.oriented to room environment.instructed to notify staff for any bleeding,pain,sob,cp..or for any concerns at all.pt verb understanding of instructions.
--- NOTE | 2021-03-25 15:43 | ECG_ITS ---
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
[2021-03-25 16:45] LABS: Glucose Point of Care 195 mg/dL (70-110)
[2021-03-25] MEDS: atorvastatin 40 mg Tablet 20 MG PO (17:12)
[2021-03-25] MEDS: montelukast sodium 10 mg Tablet PO (17:12)
[2021-03-25] MEDS: amlodipine 10 mg Tablet PO (17:12)
[2021-03-25 19:07] LABS: Troponin 5 6HR Delta 0 ng/L (0-12)
--- NOTE | 2021-03-25 21:05 | PM.CONSULT ---
Providers/Reason For Consult Consulting Physician/Specialty*: Cardiology Reason for Consult*: Arrhythmia Attending Physician: Ramses Martin MD Primary Care Provider: OSCAR Montoya History of Present Illness History of Present Illness Tomeka Marshall is a 55 year old female admitted with hypoxia hypercarbia CHF exacerbation was treated with antibiotics and steroids along with diuretics. Today she was noted to have junctional rhythm without significant bradycardia. Patient denies any chest pain dizziness or feeling of weakness. She denies any prior history of heart problem. Currently she is in sinus rhythm. Echocardiogram showed normal ejection fraction no wall motion abnormality. Review of Systems Const: Reports: fever(s); Denies: chills, fatigue, malaise or diaphoresis Eyes: Denies: change in vision or blurry vision ENMT: Denies: throat pain, enlarged tonsils, ear or mastoid pain, nasal discharge or nasal congestion Card: Denies: chest pain, palpitations, edema, lightheadedness, syncope or orthopnea Resp: Reports: dyspnea, non-productive cough and chest congestion; Denies: productive cough, wheezing or hemoptysis GI: Denies: abdominal pain, nausea, vomiting, hematemesis, diarrhea, constipation, hematochezia or melena : Denies: flank pain, difficulty voiding, dysuria, urinary frequency or urinary urgency Musc: Denies: neck pain, back pain, extremity pain or joint warmth Skin/Breast: Denies: rash or pruritus Neuro: Denies: headache(s), dizziness or vertigo Psych: Denies: anxiety or depression Endo: Denies: polyuria or polydipsia All/Imm: Denies: acute wheezing Meds/Allergies Home Medications and Allergies Home Medications Medication Instructions Recorded Confirmed Last Taken Type atorvastatin [Lipitor] 20 mg PO QPM 10/22/19 03/23/21 03/22/21 History gabapentin 300 mg PO TID 10/22/19 03/23/21 03/22/21 History glimepiride 2 mg PO DAILY 10/22/19 03/23/21 03/22/21 History omeprazole 40 mg PO DAILY 10/22/19 03/23/21 03/22/21 History apixaban 5 mg tablet 5 mg PO BID tab 02/12/20 03/23/21 03/22/21 History levothyroxine 100 mcg capsule 100 mcg PO DAILY 02/12/20 03/23/21 03/22/21 History Spiriva with HandiHaler 1 cap INHALATION DAILY 05/28/20 03/23/21 03/22/21 History albuterol sulfate 2 inh INHALATION Q4H PRN #18 gm 05/28/20 03/23/21 09/04/20 Rx montelukast 10 mg PO DAILY 05/28/20 03/23/21 03/22/21 History budesonide-formoterol [Symbicort] 2 puff INHALATION BID 07/15/20 03/23/21 03/22/21 History fluticasone propionate [Flonase 1 spray INTRANASAL BID 07/15/20 03/23/21 09/03/20 History Allergy Relief] metformin 500 mg PO BID 07/15/20 03/23/21 03/22/21 History ipratropium-albuterol 3 ml INHALATION Q4H PRN #180 ml 09/06/20 03/23/21 Unknown Rx modafinil 200 mg tablet 200 mg PO DAILY #30 tab 03/01/21 03/23/21 03/22/21 Rx duloxetine 60 mg capsule,delayed 120 mg PO QAM #60 cap 03/09/21 03/23/21 03/22/21 Rx release lamotrigine 100 mg tablet 100 mg PO BID #60 tab 03/09/21 03/23/21 03/22/21 Rx trazodone 150 mg PO BEDTIME PRN 03/23/21 03/23/21 03/22/21 History Allergies Allergy/AdvReac Type Severity Reaction Status Date / Time levofloxacin [From [facility]] Allergy ADR-Abdominal Verified 02/27/21 15:20 Pain Sulfa (Sulfonamide Allergy ADR-Blurry Verified 02/27/21 15:20 Antibiotics) Vision Current Medications Current Medications Generic Name Dose Route Start Last Admin Trade Name Freq PRN Reason Stop Dose Admin Acetaminophen 650 mg 03/23/21 13:01 03/24/21 20:57 Acetaminophen 325 Mg Tablet PO 650 mg Q6H PRN Administration Mild/Mod Pain Or Temp >/= 101 Albuterol/Ipratropium 3 ml 03/23/21 16:00 03/25/21 20:10 Ipratropium-Albuterol 3 Ml Neb INHALATION 3 ml Q4H.RESPIRATORY NAHID Administration Amlodipine Besylate 10 mg 03/23/21 17:00 03/25/21 17:12 Amlodipine 10 Mg Tablet PO 10 mg Q24H NAHID Administration Apixaban 5 mg 03/23/21 21:00 03/25/21 20:49 Apixaban 5 Mg Tablet PO 5 mg BID@0900,2100 NAHID Administration Aspirin 81 mg 03/25/21 10:00 03/25/21 11:53 Aspirin 81 Mg Ec Tablet PO 81 mg DAILY NAHID Administration Atorvastatin Calcium 20 mg 03/23/21 18:00 03/25/21 17:12 Atorvastatin 40 Mg Tablet PO 20 mg QPM NAHID Administration Duloxetine HCl 120 mg 03/24/21 06:00 03/25/21 06:43 Duloxetine 60 Mg Capsule PO 120 mg QAM NAHID Administration Ceftriaxone Sodium 1,000 mg/ 50 mls @ 100 mls/hr 03/24/21 08:00 03/25/21 08:17 Sodium Chloride IV 100 mls/hr Q24H NAHID Administration Protocol Azithromycin 500 mg/ Sodium 250 mls @ 250 mls/hr 03/24/21 08:00 03/25/21 08:17 Chloride IV 250 mls/hr Q24H NAHID Administration Protocol Ibuprofen 400 mg 03/24/21 01:31 03/25/21 11:53 Ibuprofen 200 Mg Tablet PO 400 mg Q8H PRN Administration MODERATE PAIN Insulin Aspart 0 unit 03/23/21 18:00 03/25/21 17:14 Insulin Aspart 100 Unit/1 Ml SUBCUT 4 unit TIDWM NAHID Administration Protocol Lamotrigine 100 mg 03/23/21 18:00 03/25/21 17:12 Lamotrigine 100 Mg Tablet PO 100 mg BID NAHID Administration Levothyroxine Sodium 100 mcg 03/24/21 09:00 03/25/21 08:16 Levothyroxine 100 Mcg Tablet PO 100 mcg DAILY NAHID Administration Methylprednisolone Sodium Succinate 40 mg 03/24/21 08:00 03/25/21 17:11 Methylprednisolone Sod Succ 40 Mg/Ml Inj IVP 40 mg Q8H NAHID Administration Montelukast Sodium 10 mg 03/25/21 15:15 03/25/21 17:12 Montelukast Sodium 10 Mg Tablet PO 10 mg DAILY NAHID Administration Non-Formulary Medication 200 mg 03/24/21 09:00 03/25/21 11:51 Modafinil [Provigil] PO Not Given DAILY NAHID Pantoprazole Sodium 40 mg 03/23/21 13:01 03/25/21 13:10 Pantoprazole 40 Mg Sdv IVP Not Given Q12H NAHID Trazodone HCl 150 mg 03/24/21 01:31 03/24/21 20:58 Trazodone 150 Mg Tablet PO 150 mg BEDTIME PRN Administration SLEEP PFSH Acute PFSH: Medical History (Updated 03/25/21 @ 13:31 by Ramses Martin MD) Acute on chronic respiratory failure with hypoxemia Anxiety and depression Bilateral pulmonary embolism -on AC with Eliquis Bipolar 2 disorder Chronic pain Chronic post-traumatic stress disorder (PTSD) COPD (chronic obstructive pulmonary disease) Chronic COPD. Chronic smoking. She is aware of the risks of cigarette smoking with COPD. GERD (gastroesophageal reflux disease) Hepatitis C virus infection cured after antiviral drug therapy Hyperlipidemia Hypertension Hypothyroidism Insomnia Obstructive sleep apnea Ovarian cyst Pneumonia Spinal stenosis Tobacco use disorder, continuous Surgical History H/O section Status post left foot surgery Family History Mother Cancer Breast cancer Social History Smoking and tobacco status: current every day smoker cigarettes Packs smoked per day: 1 Years cigarettes smoked: 30 Quit status (tobacco): considering quitting Second hand smoke exposure: No Alcohol intake: never Counseling given: No Last substance use date: 10/26/19 Household members: children Current occupational status: unemployed History of recent travel: No Dietary Habits: Current diet type/program: regular Vitals/I&O/Wt Last Vital Signs Temp 98.4 F 03/25/21 15:15 Pulse 76 03/25/21 20:15 Resp 24 H 03/25/21 20:10 BP 143/83 03/25/21 15:15 Pulse Ox 97 03/25/21 20:10 03/25/21 03/25/21 03/25/21 06:59 14:59 22:59 Intake Total 450 / 450 360 / 810 Output Total 950 / 2600 500 / 500 Balance -950 / -1090 -50 / -50 360 / 310 Weight last 48 hrs Weight 220 lb 14.804 oz Weight 217 lb 1.6 oz Physical Exam Narrative: EXAM NARRATIVE: GENERAL: Patient is alert, awake and oriented x3. NECK: No jugular vein distension. HEENT: No cyanosis. No icterus. No pallor. HEART: Regular S1 and S2. No murmur, rub or gallop. LUNGS: Clear to auscultate bilaterally. ABDOMEN: Soft, nontender and nondistended. Positive bowel sounds. No guarding, rebound or tenderness. CENTRAL NERVOUS SYSTEM: Grossly nonfocal. EXTREMITIES: Lower extremities without edema bilaterally. Data Micro: Micro: Microbiology 03/23/21 09:13 Urine Culture - Fi nal Urine,Clean Catch Escherichia col i A&P Assessment and plan (1) Junctional rhythm: Could be of multifactorial dependence bradycardic or accelerated. Currently there is no EKG changes suggestive of ischemia or chest pain ejection fraction is normal. Most likely and possible etiology for junctional rhythm was possible electrolyte imbalance versus hypoxia. Continue to monitor and avoid giovanni narayan including clonidine Status: Acute Consult Attestations Medical Necessity Statement: As per medicine Coding Level of Care Code New Pt Acute Trousseau Consultant for Chg Fwd Patient Type New History Detailed Exam Detailed Medical Decision Making Moderate Complexity Diagnoses Junctional rhythm I49.8
[2021-03-26] VITALS (13 sets, daily range): BP systolic 134–165; BP diastolic 76–96; PULSE 75–101; RESP 16–25; TEMP 36.2–37.5; O2SAT 91–98
--- NOTE | 2021-03-26 01:31 | PC.NURSE ---
Around 0000: Patients IV symptomatic, unable to flush. Unable to initiate peripheral IV access. Notified Dr. Herman. Orders received, see MAR. Patient ok to not have IV access over night per Dr. Herman.
[2021-03-26] MEDS: acetaminophen 325 mg Tablet 650 MG PO (03:09)
[2021-03-26] MEDS: ipratropium-albuterol 3 mL Neb INHALATION ×3 (03:23→11:40)
[2021-03-26 03:31] LABS: ABG PCO2 52.3 mmHg (35-45); ABG PH Result 7.41 (7.35-7.45); Arterial Blood Gas Hematocrit 45.1 % (37-47); Base Excess ABG 6.6 mmol/L (-2.0-2.0); Blood Gas Allen Test Pos; Blood Gas Sample Site Radial, left; Blood Gas Sample Type Arterial; HCO3 ABG 32.9 mmol/L (22-26); Oxygen Device BIPAP
[2021-03-26 04:17] LABS: Basophils % 0.2 %; Hemoglobin 14.2 g/dL (11.5-15.3); Lymphocytes # 1.1 10^3/uL (0.8-4.8); Lymphocytes % 6.7 %; Mean Corpuscular HGB Conc 31.6 g/dL (30.0-36.0); Mean Corpuscular Hemoglobin 29.9 pg (28.0-34.0); Mean Corpuscular Volume 94.7 fL (81-99); Mean Platelet Volume 10.7 fL (7.4-10.4); Monocytes # 0.5 10^3/uL (0.2-0.9); Monocytes % 2.9 %; Neutrophils # 13.89 10^3/uL (1.8-7.7); Neutrophils % 89.1 %; Nucleated Red Blood Cells % 0 %; Platelet Count 245 10^3/cmm (130-400); Red Blood Count 4.75 10^6/uL (4.1-5.3); Red Cell Distribution Width 12.2 % (12.1-15.1); White Blood Count 15.6 10^3/uL (4.0-10.0)
[2021-03-26 04:53] LABS: Alanine Aminotransferase 14 U/L (0-33); Albumin Level 4.1 g/dL (3.5-5.2); Alkaline Phosphatase 98 IU/L (35-105); Anion Gap 15.5 (5-19); Aspartate Amino Transferase 7 U/L (0-32); Blood Urea Nitrogen 16 mg/dL (6-20); Carbon Dioxide 28 mmol/L (22-29); Chloride 94 mmol/L (98-107); Globulin 2.6 g/dL (1.3-4.6); Glomerular Filtration Rate 164.5 mL/min (90-130); Glucose 183 mg/dL (65-115); NT Pro B Type Natriuretic Pept 36 pg/mL (0-125); Osmolality Calculated 282 mOsm/kg (285-295); Phosphorus 4.2 mg/dL (2.5-4.5); Potassium 4.5 mmol/L (3.5-5.1); Sodium 133 mmol/L (136-145); Total Bilirubin 0.3 mg/dL (0.15-1.2); Total Protein 6.7 g/dL (6.6-8.7)
[2021-03-26] MEDS: duloxetine 60 mg Capsule 120 MG PO (05:29)
[2021-03-26 06:32] LABS: Glucose Point of Care 172 mg/dL (70-110)
[2021-03-26] MEDS: azithromycin 500 MG in sodium chloride 0.9% 250 ML 250 MG IV (08:50)
[2021-03-26] MEDS: cefTRIAXone 1,000 MG in sodium chloride 0.9% (plus) 50 ML 100 MG IV (08:51)
[2021-03-26] MEDS: pantoprazole DR 40 mg Tablet PO (08:52)
[2021-03-26] MEDS: lamoTRIgine 100 mg Tablet PO (08:52)
[2021-03-26] MEDS: apixaban 5 mg Tablet PO (08:52)
[2021-03-26] MEDS: montelukast sodium 10 mg Tablet PO (08:53)
[2021-03-26] MEDS: levothyroxine 100 mcg Tablet PO (08:53)
[2021-03-26] MEDS: aspirin 81 mg EC Tablet PO (08:53)
--- NOTE | 2021-03-26 10:01 | PC.SOCIAL ---
IMM Update Pg.2 of IMM updated. Copy left at bedside for patient.
--- NOTE | 2021-03-26 10:03 | P.DS_ITS ---
Discharge Providers Date of Admission: 03/23/21 15:02 Date of Discharge: March 26, 2021 Attending Provider at Admission: Ramses Martin MD Attending Provider at Discharge: Ramses Martin MD Primary Care Provider: OSCAR Montoya Diagnoses at Discharge Discharge Diagnosis (1) Junctional rhythm: Status: Acute Reason for Visit Reason for Visit: SOB Hospital Course Hospital Course Tomeka Marshall is a 55 year old female with a past medical history of COPD, 3 to 4 L oxygen dependent acute on chronic hypercarbic respiratory failure, history of pulmonary emboli on Eliquis, noninsulin-dependent type II days mellitus, hypothyroidism, current smoker who presents [facility] due to shortness of breath. Patient was admitted to [facility] for acute on chronic respiratory failure with hypoxia and hypercapnia secondary to COPD, admitted to the ICU, received BiPAP therapy, steroid therapy, broad-spectrum antibiotic therapy, and clinically monitored. Patient clinically improved, moved to cardiac stepdown unit, she was saturating 3 L before discharge, discharged on a prednisone burst, doxycycline for antibiotic coverage. On discharge I have arranged for patient to get BiPAP as outpatient, will have her follow-up with pulmonary in 1 week. Patient had an E. coli UTI during hospitalization, received Rocephin as inpatient, finished antibiotic treatment as inpatient Patient was also found to have junctional rhythm during her hospitalization, echocardiogram showed EF of 60%, grade 1 or 4 diastolic dysfunction, no significant delta troponin, no complaints of chest pain, on aspirin, statin. Cardiology was consulted who advised that rhythm was likely secondary to hypoxia, advised to avoid giovanni blocking agents such as metoprolol and clonidine. Discharge Data Data Completed and Pending: Completed Studies During Hospitalization Category Date Time Status XR chest 1V libertad ble [id number] Routine Exams 03/24/21 07:00 Completed XR chest 1V libertad ble [id number] Stat Exams 03/23/21 06:52 Completed CV echo complete* [id number] Routine Ultrasound 03/23/21 13:01 Completed Pending at discharge Category Date Time Status Blood Culture Rou ashlee Lab 03/23/21 13:38 Results Complete Blood Co unt w/Auto AM LABS Lab 03/27/21 04:00 Ordered Comprehensive Met abolic Panel AM LA BS Lab 03/27/21 04:00 Ordered Sputum Culture an d Gram Stain Stat Lab 03/23/21 06:57 Uncollected Labs from last 24 hours 03/26/21 03/26/21 03/26/21 06:21 03:41 03:41 WBC Corrected WBC RBC Hgb Hct MCV MCH MCHC RDW Plt Count MPV Gran % Neut % (Auto) Lymph % (Auto) [place] % (Auto) Eos % (Auto) Baso % (Auto) Neut # (Auto) Lymph # (Auto) [place] # (Auto) Eos # (Auto) Baso # (Auto) Absolute Gran (aut o) Nucleated RBC % (a uto) Nucleated RBCs # PT 13.50 INR 1.00 Specimen Type Sample Site ABG pH ABG pCO2 ABG pO2 ABG HCO3 ABG Base Excess Glenn Test Hematocrit O2 Delivery Device FiO2 Spiral Runner ID Sodium 133 L Potassium 4.5 Chloride 94 L Carbon Dioxide 28 Anion Gap 15.5 BUN 16 Creatinine 0.4 L GFR Calculation 164.5 H Glucose 183 H POC Glucose 172 H Calculated Osmolal ity 282 L Calcium 9.0 Phosphorus 4.2 Magnesium 2.0 Total Bilirubin 0.3 AST 7 ALT 14 Alkaline Phosphata se 98 Troponin T Baselin e Troponin T 120 Min [place] Delta Troponin T Troponin T Hi Sens 6Hr Troponin T Hi Sens 6Hr Delta NT-Pro-B Natriuret Pep 36 Total Protein 6.7 Albumin 4.1 Globulin 2.6 03/26/21 03/26/21 03/25/21 03:41 03:25 18:26 WBC 15.6 H Corrected WBC RBC 4.75 Hgb 14.2 Hct 45.0 MCV 94.7 MCH 29.9 MCHC 31.6 D RDW 12.2 Plt Count 245 MPV 10.7 H Gran % Neut % (Auto) 89.1 Lymph % (Auto) 6.7 [place] % (Auto) 2.9 Eos % (Auto) 0.0 Baso % (Auto) 0.2 Neut # (Auto) 13.89 H Lymph # (Auto) 1.1 [place] # (Auto) 0.5 Eos # (Auto) 0.0 Baso # (Auto) 0.0 Absolute Gran (aut o) Nucleated RBC % (a uto) 0 Nucleated RBCs # 0.0 PT INR Specimen Type Arterial Sample Site Radial, left ABG pH 7.41 ABG pCO2 52.3 H ABG pO2 202.0 H ABG HCO3 32.9 H ABG Base Excess 6.6 H Glenn Test Pos Hematocrit 45.1 O2 Delivery Device Bipap FiO2 30.0 Spiral Runner ID ellpe Sodium Potassium Chloride Carbon Dioxide Anion Gap BUN Creatinine GFR Calculation Glucose POC Glucose Calculated Osmolal ity Calcium Phosphorus Magnesium Total Bilirubin AST ALT Alkaline Phosphata se Troponin T Baselin e Troponin T 120 Min [place] Delta Troponin T Troponin T Hi Sens 6Hr 6.00 Troponin T Hi Sens 6Hr Delta 0 NT-Pro-B Natriuret Pep Total Protein Albumin Globulin 03/25/21 03/25/21 03/25/21 16:34 14:13 12:05 WBC Corrected WBC RBC Hgb Hct MCV MCH MCHC RDW Plt Count MPV Gran % Neut % (Auto) Lymph % (Auto) [place] % (Auto) Eos % (Auto) Baso % (Auto) Neut # (Auto) Lymph # (Auto) [place] # (Auto) Eos # (Auto) Baso # (Auto) Absolute Gran (aut o) Nucleated RBC % (a uto) Nucleated RBCs # PT INR Specimen Type Sample Site ABG pH ABG pCO2 ABG pO2 ABG HCO3 ABG Base Excess Glenn Test Hematocrit O2 Delivery Device FiO2 Spiral Runner ID Sodium Potassium Chloride Carbon Dioxide Anion Gap BUN Creatinine GFR Calculation Glucose POC Glucose 195 H 201 H Calculated Osmolal ity Calcium Phosphorus Magnesium Total Bilirubin AST ALT Alkaline Phosphata se Troponin T Baselin e Troponin T 120 Min [place] 6.00 Delta Troponin T 0 Troponin T Hi Sens 6Hr Troponin T Hi Sens 6Hr Delta NT-Pro-B Natriuret Pep Total Protein Albumin Globulin 03/25/21 03/25/21 03/25/21 11:51 11:51 11:51 WBC 15.5 H Corrected WBC RBC 5.14 Hgb 15.5 H Hct 46.4 MCV 90.3 MCH 30.2 MCHC 33.4 RDW 12.3 Plt Count 255 MPV 10.6 H Gran % Neut % (Auto) 89.0 Lymph % (Auto) 6.5 [place] % (Auto) 3.6 Eos % (Auto) 0.0 Baso % (Auto) 0.1 Neut # (Auto) 13.78 H Lymph # (Auto) 1.0 [place] # (Auto) 0.6 Eos # (Auto) 0.0 Baso # (Auto) 0.0 Absolute Gran (aut o) Nucleated RBC % (a uto) 0 Nucleated RBCs # 0.0 PT INR Specimen Type Sample Site ABG pH ABG pCO2 ABG pO2 ABG HCO3 ABG Base Excess Glenn Test Hematocrit O2 Delivery Device FiO2 Spiral Runner ID Sodium 135 L Potassium 4.6 Chloride 93 L Carbon Dioxide 30 H Anion Gap 16.6 BUN 10 Creatinine 0.4 L GFR Calculation 164.5 H Glucose 174 H POC Glucose Calculated Osmolal ity 283 L Calcium 9.5 Phosphorus 3.2 Magnesium 2.0 Total Bilirubin 0.3 AST 12 ALT 16 Alkaline Phosphata se 103 Troponin T Baselin e 6 Troponin T 120 Min [place] Delta Troponin T Troponin T Hi Sens 6Hr Troponin T Hi Sens 6Hr Delta NT-Pro-B Natriuret Pep 57 Total Protein 6.9 Albumin 4.3 Globulin 2.6 03/25/21 03/25/21 03/25/21 11:51 09:23 09:23 WBC Cancelled Corrected WBC Cancelled RBC Cancelled Hgb Cancelled Hct Cancelled MCV Cancelled MCH Cancelled MCHC Cancelled RDW Cancelled Plt Count Cancelled MPV Cancelled Gran % Cancelled Neut % (Auto) Cancelled Lymph % (Auto) Cancelled [place] % (Auto) Cancelled Eos % (Auto) Cancelled Baso % (Auto) Cancelled Neut # (Auto) Cancelled Lymph # (Auto) Cancelled [place] # (Auto) Cancelled Eos # (Auto) Cancelled Baso # (Auto) Cancelled Absolute Gran (aut o) Cancelled Nucleated RBC % (a uto) Cancelled Nucleated RBCs # Cancelled PT 11.30 L INR 0.80 Specimen Type Sample Site ABG pH ABG pCO2 ABG pO2 ABG HCO3 ABG Base Excess Glenn Test Hematocrit O2 Delivery Device FiO2 Spiral Runner ID Sodium Cancelled Potassium Cancelled Chloride Cancelled Carbon Dioxide Cancelled Anion Gap Cancelled BUN Cancelled Creatinine Cancelled GFR Calculation Cancelled Glucose Cancelled POC Glucose Calculated Osmolal ity Cancelled Calcium Cancelled Phosphorus Cancelled Magnesium Cancelled Total Bilirubin Cancelled AST Cancelled ALT Cancelled Alkaline Phosphata se Cancelled Troponin T Baselin e Troponin T 120 Min [place] Delta Troponin T Troponin T Hi Sens 6Hr Troponin T Hi Sens 6Hr Delta NT-Pro-B Natriuret Pep Cancelled Total Protein Cancelled Albumin Cancelled Globulin Cancelled 03/25/21 09:23 WBC Corrected WBC RBC Hgb Hct MCV MCH MCHC RDW Plt Count MPV Gran % Neut % (Auto) Lymph % (Auto) [place] % (Auto) Eos % (Auto) Baso % (Auto) Neut # (Auto) Lymph # (Auto) [place] # (Auto) Eos # (Auto) Baso # (Auto) Absolute Gran (aut o) Nucleated RBC % (a uto) Nucleated RBCs # PT INR Specimen Type Sample Site ABG pH ABG pCO2 ABG pO2 ABG HCO3 ABG Base Excess Glenn Test Hematocrit O2 Delivery Device FiO2 Spiral Runner ID Sodium Potassium Chloride Carbon Dioxide Anion Gap BUN Creatinine GFR Calculation Glucose POC Glucose Calculated Osmolal ity Calcium Phosphorus Magnesium Total Bilirubin AST ALT Alkaline Phosphata se Troponin T Baselin e Cancelled Troponin T 120 Min [place] Delta Troponin T Troponin T Hi Sens 6Hr Troponin T Hi Sens 6Hr Delta NT-Pro-B Natriuret Pep Total Protein Albumin Globulin Vitals: Last Vital Signs Temp 97.1 F L 03/26/21 08:00 Pulse 81 03/26/21 08:06 Resp 22 H 03/26/21 08:00 BP 139/76 03/26/21 08:00 Pulse Ox 91 03/26/21 08:00 Discharge Plan Discharge Patient Disposition: Home Condition: Stable Prescriptions: New amlodipine 10 mg Tablet 10 mg PO Q24H 30 Days Qty: 30 RF: 0 aspirin 81 mg Tablet,Delayed Release (Dr/Ec) 81 mg PO DAILY 30 Days Qty: 30 RF: 0 doxycycline hyclate 100 mg tablet 100 mg PO BID 5 Days Qty: 10 RF: 0 prednisone 20 mg tablet 20 mg PO BID 5 Days Qty: 10 RF: 0 Continued levothyroxine 100 mcg capsule 100 mcg PO DAILY RF: 0 Eliquis 5 mg tablet 5 mg PO BID RF: 0 duloxetine [Cymbalta] 60 mg capsule,delayed release(DR/EC) 120 mg PO QAM Qty: 60 RF: 1 lamotrigine 100 mg tablet 100 mg PO BID Qty: 60 RF: 1 modafinil [Provigil] 200 mg tablet 200 mg PO DAILY Qty: 30 RF: 5 montelukast 10 mg tablet 10 mg PO DAILY RF: 0 Spiriva with HandiHaler 18 mcg capsule, w/inhalation device 1 cap INHALATION DAILY RF: 0 albuterol sulfate 90 mcg/actuation HFA aerosol inhaler 2 inh INHALATION Q4H PRN (Reason: shortness of breath or wheezing) Qty: 18 RF: 0 metformin 500 mg tablet 500 mg PO BID RF: 0 fluticasone propionate [Flonase Allergy Relief] 50 mcg/actuation [place],Suspension 1 spray INTRANASAL BID RF: 0 budesonide-formoterol [Symbicort] 160-4.5 mcg/actuation HFA aerosol inhaler 2 puff INHALATION BID RF: 0 trazodone 150 mg tablet 150 mg PO BEDTIME PRN (Reason: insomnia) RF: 0 atorvastatin [Lipitor] 20 mg Tablet 20 mg PO QPM RF: 0 omeprazole 40 mg Capsule,Delayed Release(Dr/Ec) 40 mg PO DAILY RF: 0 glimepiride 4 mg Tablet 2 mg PO DAILY RF: 0 gabapentin 300 mg Capsule 300 mg PO TID RF: 0 ipratropium-albuterol 0.5 mg-3 mg(2.5 mg base)/3 mL Solution For Nebulization 3 ml inhalation Q4H PRN (Reason: Shortness Of Breath) Qty: 180 RF: 0 Discharge Orders: Discharge Order (Routine); Ordered 03/26/21 Ordered By: Ramses Martin Referrals: MararNeal MD [Physician] - 1 week Lan,OSCAR Lester [Primary Care Provider] - 4-7 days Discharge Diet: Cardiac Discharge Activity: Resume usual activity Patient Instructions: Opioid Safety Activity Restrictions/Additional Instructions: -Please follow-up with pulmonary in 1 week for consideration of BiPAP -Please follow-up with primary care provider in 4 to 7 days -Take antibiotics and steroids as prescribed -If you have fevers or worsening shortness of breath, or cough go to the emergency room Discharge Attestations Time Spent in Discharge Care*: greater than 30 min Status at Discharge: Cognitive status at discharge: cognitively intact , Behavioral status at discharge: cooperative , Quality Metrics Clinical Quality Measures During this hospital stay, did patient experience: None Coding Level of Care Code Acute Chg FW DC note Diagnoses Junctional rhythm I49.8
[2021-03-26] MEDS: ibuprofen 200 mg Tablet 400 MG PO (10:04)
--- NOTE | 2021-03-26 10:11 | P.PN_ITS ---
Subjective Subjective: Interval history: Patient is doing well. Currently in normal sinus rhythm Vitals/I&O/Wt Last Vital Signs Temp 97.1 F L 03/26/21 08:00 Pulse 81 03/26/21 08:06 Resp 22 H 03/26/21 08:00 BP 139/76 03/26/21 08:00 Pulse Ox 91 03/26/21 08:00 03/25/21 03/26/21 03/26/21 22:59 06:59 14:59 Intake Total 760 / 1510 410 / 410 Output Total 450 / 950 400 / 1350 Balance 310 / 560 -400 / 160 410 / 410 Weight last 48 hrs Weight 220 lb 14.804 oz Physical Exam Narrative: EXAM NARRATIVE: GENERAL: Patient is alert, awake and oriented x3. NECK: No jugular vein distension. HEENT: No cyanosis. No icterus. No pallor. HEART: Regular S1 and S2. No murmur, rub or gallop. LUNGS: Clear to auscultate bilaterally. ABDOMEN: Soft, nontender and nondistended. Positive bowel sounds. No guarding, rebound or tenderness. CENTRAL NERVOUS SYSTEM: Grossly nonfocal. EXTREMITIES: Lower extremities without edema bilaterally. Data : 03/26/21 03:41 03/26/21 03:41 Micro: Microbiology 03/23/21 09:13 Urine Culture - Final Urine,Clean Catch Escherichia coli A&P Assessment and plan (1) Junctional rhythm: Junctional rhythm on presentation to hospital. No ischemic symptoms or EKG findings. It would secondary to electrolyte imbalance or hypoxia. Avoid AV giovanni blocking agents. Patient is stable to be discharged from cardiology standpoint. Please call with questions. Status: Acute Attestations Medical Necessity Statement*: Care expected to cross 2 midnights. Coding Level of Care Code Acute Skilled Laborer for Parmjit Colin Diagnoses Junctional rhythm I49.8
--- NOTE | 2021-03-26 10:24 | PC.NURSE ---
Transportation Pt stated her sister is going to pick her up and will bring her portable oxygen when asked that she needs her oxygen upon going home.
[2021-03-26 11:03] LABS: Glucose Point of Care 110 mg/dL (70-110)
--- NOTE | 2021-03-26 12:26 | PC.NURSE ---
Called New Rx to [facility] in [place] instead of [facility]. pt stated she just moved in this area and switch her pharmacy.
--- NOTE | 2021-03-26 13:00 | PC.NURSE ---
discharge to home with sister Discuss to pt regarding her follow-up appointments. Educated pt on her new meds actions, dosing, timing and duration and possible side effects. Discharge packet provided to pt. Pt does not have any further questions.
--- NOTE | 2021-03-26 14:41 | PC.NURSE ---
Pt home meds were left in ICU Pt called and was looking for her home meds. Called ICU to verify if pt has her home meds and they are still in ICU. Pt stated she will picked up her home meds.
== END 2021-03-26 13:09 | disposition home or self-care (01) | DRG 190 ==
LOC: ER 08:56 → ICU 15:32 → CSU 03-25 13:24
PROVIDERS: Hospitalist; Admitting Provider Family Medicine; Emergency Provider Family Medicine; PCP Nurse Practitioner Family; Visit Provider Family Medicine
DX: J44.1 Chronic obstructive pulmonary disease with (acute) exacerbation (principal); J96.22 Acute and chronic respiratory failure with hypercapnia; J96.21 Acute and chronic respiratory failure with hypoxia; N39.0 Urinary tract infection, site not specified; F31.81 Bipolar II disorder; Z99.81 Dependence on supplemental oxygen; Z86.711 Personal history of pulmonary embolism; Z79.01 Long term (current) use of anticoagulants; E11.9 Type 2 diabetes mellitus without complications; E03.9 Hypothyroidism, unspecified; F17.210 Nicotine dependence, cigarettes, uncomplicated; F41.9 Anxiety disorder, unspecified; G89.29 Other chronic pain; F43.12 Post-traumatic stress disorder, chronic; K21.9 Gastro-esophageal reflux disease without esophagitis; Z86.19 Personal history of other infectious and parasitic diseases; E78.5 Hyperlipidemia, unspecified; I10 Essential (primary) hypertension; G47.00 Insomnia, unspecified; Z79.84 Long term (current) use of oral hypoglycemic drugs; Z79.51 Long term (current) use of inhaled steroids; B96.20 Unspecified Escherichia coli [E. coli] as the cause of diseases classified elsewhere; I49.8 Other specified cardiac arrhythmias; M48.04 Spinal stenosis, thoracic region; Z87.01 Personal history of pneumonia (recurrent); G47.33 Obstructive sleep apnea (adult) (pediatric)
CPT/HCPCS: 36415; 36416; 36600; 71045; 80051; 80053; 80061; 81001; 82009; 82330; 82803; 82805; 82962; 83605; 83735; 83880; 84100; 84145; 84443; 84484; 85025; 85610; 87040; 87077; 87086; 87186; 87426; 93005; 93306; 94640; 94660; 94664; 96365; 96367; 96372; 96375; 97165; 99291; C9113; J0456; J0696; J1815; J1940; J2920; J2930; J7050

== ENCOUNTER 2021-04-05 08:50 | Inpatient (IN) | payer MEDICARE, MEDICAID, SELFPAY ==
[2020-07-18 17:32] VITALS: BP 115/65; BMI 41.0
[2021-04-05] VITALS (8 sets, daily range): BP systolic 112–148; BP diastolic 72–90; PULSE 66–111; RESP 16–24; TEMP 36.9–37.7; O2SAT 85–96; BMI 37.3
--- NOTE | 2021-04-05 09:23 | ECG_ITS ---
[facility] Test Date: 2021-04-05 Pat Name: Tomeka Marshall Department: Room: Gender: Female Jingle Writer: : 1965 Requested By: Adry Easton Order Number: [id number] Umer MD: Tisha Wright M.D. Measurements Intervals [place] Rate: 77 P: 74 [place]: 155 QRS: 87 QRSD: 98 T: 82 QT: 385 QTc: 438 Interpretive Statements SINUS RHYTHM Compared to ECG 03/25/2021 17:37:44 No significant changes Electronically Signed On 04-05-2021 17:45:24 CDT by Tisha Wright M.D. [email or web address]
--- NOTE | 2021-04-05 09:33 | XR_ITS ---
WS: [id number] Exam: XR chest 1V portable [id number] Date/Time of Exam: 04/05/2021 9:35 AM Reason For Exam: copd fever Comparison 08/10/2020. The lungs are hyperinflated and clear. Mild chronic change in the right base. No pleural effusions. N ormal cardiomediastinal structures and regional bony elements. XR/XR chest 1V portable [id number] IMPRESSION: 1. Pulmonary hyperinflation which might indicate obstructive lung disease. No a cute process noted.
--- NOTE | 2021-04-05 10:01 | ED_ITS ---
HPI - Psych General: Chief Complaint: Psychiatric Symptoms Stated Complaint: PT states mental break down has not slept Time Seen by Provider: 04/05/21 09:12 History of Present Illness: HPI Narrative: Patient presents with mental breakdown . Says she hasn't slept in 3 days and is on modafinil for narcolepsy and is exhausted and wants to just go to sleep for days and not wake up. However she does clarify that she just wants rest, she is not suicidal or any plan to harm herself she wouldn't do that to her kids. She just feels like can't take the exhaustion and is becoming irritable at senior care and was asked to leave and is staying with some person elke and his at [address] [place] [address]. She feels hot and cold but feels it is because of the mental aspect that physically she does not feel ill. She has missed 2 days of meds because she didn't have them directly with her but does have them now. She has depression and has had previous mental admissions but never suicidal attempts. She denies covid symptoms and had 1st dose Moderna in January but missed 2nd dose. She denies feeling SOA despite chronic COPD and O2 dependence. She [facility] and [facility] and completed all treatments. Review of Systems Narrative: General: denies fatigue, fever or chills HEENT: denies ear pain, denies nasal congestion, denies vision changes, denies sore throat Neck: denies masses or pain Resp: denies cough, denies new shortness of breath, denies pleuritic pain Cardio: denies chest pain, denies edema GI: denies abdominal pain, denies N/V/D, denies black/tarry or bloody stools : denies hematuria, denies dysuria Neuro: denies headache, denies dizziness, denies motor or sensory changes Musculoskeletal: denies pain, denies swelling Skin: denies rashes Psych: denies SI or HI but is depressed, tearful and about to lose my mind Endocrine: denies thyroid symptoms, denies lymphadenopathy all over ROS reviewed and patient denies PFSH ED PFSH: Medical History Acute on chronic respiratory failure with hypoxemia Anxiety and depression Bilateral pulmonary embolism -on AC with Eliquis Bipolar 2 disorder Chronic pain Chronic post-traumatic stress disorder (PTSD) COPD (chronic obstructive pulmonary disease) Chronic COPD. Chronic smoking. She is aware of the risks of cigarette smoking with COPD. GERD (gastroesophageal reflux disease) Hepatitis C virus infection cured after antiviral drug therapy Hyperlipidemia Hypertension Hypothyroidism Insomnia Obstructive sleep apnea Ovarian cyst Pneumonia Spinal stenosis Tobacco use disorder, continuous Surgical History H/O section Status post left foot surgery Family History Mother Cancer Breast cancer Social History Smoking and tobacco status: current every day smoker cigarettes Packs smoked per day: 1 Years cigarettes smoked: 30 Quit status (tobacco): considering quitting Second hand smoke exposure: No Alcohol intake: never Counseling given: No Last substance use date: 10/26/19 Household members: children Current occupational status: unemployed History of recent travel: No Physical Exam Narrative: EXAM NARRATIVE: General: a/o/3, no distress, on O2 Head: atraumatic HEENT: normal eyes, normal conjunctiva, normal hearing, normal external nose, normal mouth, mucous membranes moist Neck: FROM, trachea midline Chest: normal expansion, no gross deformities Resp: normal speech, no retractions, no accessory muscle use, CTA bilaterally Cardio: regular rate and rhythm and no murmur, no peripheral edema, normal peripheral pulses GI: soft, flat non tender, no guarding normal BS : deferred Musculoskeletal: FROM, no pain or gross deformities Neuro: a/o appropriate for age, no gross motor or sensory deficits, CN II-XII grossly intact, normal coordination, normal speech Skin: no rashes Psych: cooperative, tearful at times gets frustrated easily with questions throws her head down in the pillow sobbing does have intermittent anger outbursts but then is easily redirected she is not aggressive she just appears frustrated Course Vital Signs: Vital signs: Vital Signs Temperature 99.3 F 04/05/21 14:00 Pulse Rate 79 04/05/21 14:00 Respiratory Rate 17 04/05/21 14:00 Blood Pressure 139/90 04/05/21 14:00 Pulse Oximetry 85 L 04/05/21 14:00 MDM - Psych MDM Narrative: Medical decision making narrative: Patient denies being suicidal she just feels exhausted she recently was in the hospital and I reviewed her medical records. She is on Eliquis for previous PEs denies any new symptoms she has not appear to be in any distress during my exam. Patient is requesting to be admitted to help with her mental capacities at this time she is very frustrated she has not slept in several days and she is on medications for narcolepsy and her neurologist will not remove it. She does not feel like she is getting any relief. She denies any physical complaints she did have a little low-grade temp when she came in but she came in from the heat we will recheck vitals. Recheck some labs she did recently have prednisone so therefore her white blood cell count could be falsely elevated she does not appear ill Spoke with Dr. Flynn from psychiatry and if she is medically cleared they will accept her to the wellness unit Medical Records: Attestation: I reviewed the patient's medical records. Lab Data: Attestation: I reviewed the patient's lab results. Labs: Lab Results 04/05/21 04/05/21 04/05/21 Range/Units 09:50 09:50 10:00 WBC (4.0-10.0) 10^3/ uL RBC (4.1-5.3) 10^6/u L Hgb (11.5-15.3) g/dL Hct (37.0-47.0) % MCV (81-99) fL MCH (28.0-34.0) pg MCHC (30.0-36.0) g/dL RDW (12.1-15.1) % Plt Count (130-400) 10^3/c mm MPV (7.4-10.4) fL Neut % (Auto) % Lymph % (Auto) % [place] % (Auto) % Eos % (Auto) % Baso % (Auto) % Neut # (Auto) (1.8-7.7) 10^3/u L Lymph # (Auto) (0.8-4.8) 10^3/u L [place] # (Auto) (0.2-0.9) 10^3/u L Eos # (Auto) (0.0-0.8) 10^3/u L Baso # (Auto) (0.0-0.1) 10^3/u L Nucleated RBC % (a uto) % Nucleated RBCs # /100WBC Sodium Potassium Chloride Carbon Dioxide Anion Gap BUN Creatinine GFR Calculation Glucose Calculated Osmolal ity Calcium Total Bilirubin AST ALT Alkaline Phosphata se Total Protein Albumin Globulin Urine Color Yellow (Yellow) Urine Appearance Clear (CLEAR) Urine pH 6.5 (5-7) Ur Specific Gravit y 1.015 (1.005-1.030) Urine Protein 1+ H (Negative) Urine Glucose (UA) Trace H (Normal) Urine Ketones 1+ H (Negative) Urine Blood Neg (Negative) Urine Nitrate Negative (Negative) Urine Bilirubin 1+ H (Negative) Urine Urobilinogen 4 H (Negative) mg/dL Ur Leukocyte Eunice ase Negative (Negative) Salicylates Urine Opiates Scre en Negative (Negative) ng/mL Acetaminophen Ur Barbiturates Sc reen Negative (Negative) ng/mL Ur Phencyclidine S crn Negative (Negative) ng/mL Ur Amphetamines Sc reen Negative (Negative) ng/mL U Benzodiazepines Scrn Negative (Negative) ng/mL Urine Cocaine Scre en Negative (Negative) ng/mL U Marijuana (THC) Screen Positive H (Negative) ng/mL Ethyl Alcohol SARS-CoV-2 Ag (Rap id) Negative (Negative) 04/05/21 04/05/21 04/05/21 Range/Units 10:20 10:51 10:51 WBC 8.8 (4.0-10.0) 10^3/ uL RBC 4.70 (4.1-5.3) 10^6/u L Hgb 14.4 (11.5-15.3) g/dL Hct 44.4 (37.0-47.0) % MCV 94.5 (81-99) fL MCH 30.6 (28.0-34.0) pg MCHC 32.4 (30.0-36.0) g/dL RDW 13.1 (12.1-15.1) % Plt Count 198 (130-400) 10^3/c mm MPV 10.9 H (7.4-10.4) fL Neut % (Auto) 70.4 % Lymph % (Auto) 19.8 % [place] % (Auto) 8.3 % Eos % (Auto) 0.8 % Baso % (Auto) 0.5 % Neut # (Auto) 6.21 (1.8-7.7) 10^3/u L Lymph # (Auto) 1.8 (0.8-4.8) 10^3/u L [place] # (Auto) 0.7 (0.2-0.9) 10^3/u L Eos # (Auto) 0.1 (0.0-0.8) 10^3/u L Baso # (Auto) 0.0 (0.0-0.1) 10^3/u L Nucleated RBC % (a uto) 0 % Nucleated RBCs # 0.0 /100WBC Sodium Cancelled 134 L Potassium Cancelled 3.7 Chloride Cancelled 95 L Carbon Dioxide Cancelled 30 H Anion Gap Cancelled 12.7 BUN Cancelled 7 Creatinine Cancelled 0.5 GFR Calculation Cancelled 127.2 Glucose Cancelled 210 H Calculated Osmolal ity Cancelled 282 L Calcium Cancelled 8.9 Total Bilirubin Cancelled 0.7 AST Cancelled 9 ALT Cancelled 15 Alkaline Phosphata se Cancelled 94 Total Protein Cancelled 5.9 L Albumin Cancelled 3.7 Globulin Cancelled 2.2 Urine Color (Yellow) Urine Appearance (CLEAR) Urine pH (5-7) Ur Specific Gravit y (1.005-1.030) Urine Protein (Negative) Urine Glucose (UA) (Normal) Urine Ketones (Negative) Urine Blood (Negative) Urine Nitrate (Negative) Urine Bilirubin (Negative) Urine Urobilinogen (Negative) mg/dL Ur Leukocyte Eunice ase (Negative) Salicylates Cancelled < 0.3 L Urine Opiates Scre en (Negative) ng/mL Acetaminophen Cancelled < 5.0 L Ur Barbiturates Sc reen (Negative) ng/mL Ur Phencyclidine S crn (Negative) ng/mL Ur Amphetamines Sc reen (Negative) ng/mL U Benzodiazepines Scrn (Negative) ng/mL Urine Cocaine Scre en (Negative) ng/mL U Marijuana (THC) Screen (Negative) ng/mL Ethyl Alcohol Cancelled < 10 SARS-CoV-2 Ag (Rap id) (Negative) Discharge Plan Discharge Patient Disposition: Admitted As Inpatient Admit Provider: Vicki Flynn Clinical Impression: Depression, Insomnia, Delirium due to multiple etiologies Condition: Stable Coding Level of Care Code ED Supervisor Beam Department for [facility] [employer]
[2021-04-05 10:04] LABS: Add Urine Microscopic? NO; Charge for UA Resulting for Rev
[2021-04-05] MEDS: LORazepam 1 mg Tablet PO (10:04)
[2021-04-05 10:11] LABS: Protein Urine 1+ (Negative); Specific Gravity, Urine 1.015 (1.005-1.030); Urine Appearance Clear (CLEAR); Urine Color Yellow (Yellow); pH Urine 6.5 (5-7)
[2021-04-05 10:12] LABS: Bilirubin Urine 1+ (Negative); Blood Urine Neg (Negative); Glucose Urine UA Trace (Normal); Ketones Urine 1+ (Negative); Leukocyte Esterase Urine Negative (Negative); Nitrate Urine Negative (Negative); Urobilinogen Urine 4 mg/dL (Negative)
[2021-04-05] MEDS: nicotine 21 mg Patch 1 PATCH TRANSDERMA (10:14)
[2021-04-05 10:17] LABS: Amphetamines Screen Urine Negative (Negative); Barbiturates Screen Urine Negative (Negative); Benzodiazepines Screen Urine Negative (Negative); Cocaine Screen Urine Negative (Negative); Opiate Screen Urine Negative (Negative); PCP Screen Urine Negative (Negative); THC Screen Urine Positive (Negative)
[2021-04-05 10:23] LABS: SARS Covid-2 Antigen Negative (Negative)
[2021-04-05 11:01] LABS: Basophils % 0.5 %; Eosinophils # 0.1 10^3/uL (0.0-0.8); Eosinophils % 0.8 %; Hematocrit 44.4 % (37.0-47.0); Hemoglobin 14.4 g/dL (11.5-15.3); Lymphocytes # 1.8 10^3/uL (0.8-4.8); Lymphocytes % 19.8 %; Mean Corpuscular HGB Conc 32.4 g/dL (30.0-36.0); Mean Corpuscular Hemoglobin 30.6 pg (28.0-34.0); Mean Corpuscular Volume 94.5 fL (81-99); Mean Platelet Volume 10.9 fL (7.4-10.4); Monocytes # 0.7 10^3/uL (0.2-0.9); Monocytes % 8.3 %; Neutrophils # 6.21 10^3/uL (1.8-7.7); Neutrophils % 70.4 %; Nucleated Red Blood Cells % 0 %; Platelet Count 198 10^3/cmm (130-400); Red Cell Distribution Width 13.1 % (12.1-15.1); White Blood Count 8.8 10^3/uL (4.0-10.0)
[2021-04-05 11:28] LABS: Alanine Aminotransferase 15 U/L (0-33); Albumin Level 3.7 g/dL (3.5-5.2); Alkaline Phosphatase 94 IU/L (35-105); Anion Gap 12.7 (5-19); Aspartate Amino Transferase 9 U/L (0-32); Blood Urea Nitrogen 7 mg/dL (6-20); Calcium 8.9 mg/dL (8.5-10.5); Carbon Dioxide 30 mmol/L (22-29); Chloride 95 mmol/L (98-107); Globulin 2.2 g/dL (1.3-4.6); Glomerular Filtration Rate 127.2 mL/min (90-130); Glucose 210 mg/dL (65-115); Osmolality Calculated 282 mOsm/kg (285-295); Potassium 3.7 mmol/L (3.5-5.1); Sodium 134 mmol/L (136-145); Total Bilirubin 0.7 mg/dL (0.15-1.2); Total Protein 5.9 g/dL (6.6-8.7)
[2021-04-05 11:31] LABS: Acetaminophen < 5.0 ug/mL (10-30); Alcohol Level < 10 mg/dL (0-10); Salicylate < 0.3 mg/dL (3-10)
--- NOTE | 2021-04-05 11:42 | PC.PHAR ---
pt brought in medication bottles-notes are made in the pharmacy comments of each rx-pt states she has a nurse from [facility] set up her meds waiting on med list to be faxed entered meds the pt brought in
--- NOTE | 2021-04-05 12:20 | PC.NURSE ---
Gown/paper scrubs Patient states only able to wear 3x scrubs, we only have 2x. Called N[facility] to notify and make aware that patient is coming in a gown. Marlene okayed and aware, will change on arrival. To [facility] via wheelchair accompanied by security at this time. Belonging sent with patient.
--- NOTE | 2021-04-05 14:47 | PC.NURSE ---
PATIENT IS YELLING IN HER ROOM, DEMANDING THAT SHE HAVE HER PHONE TO PLAY GAMES ON. EXPLAINED TO PATIENT THAT ISNT ALLOWED ON THIS UNIT. PATIENT STATES IF I KNEW THAT, I WOULDNT HAVE COME DOWN HERE.
[2021-04-05] MEDS: haloperidol 5 mg Tablet PO (14:55)
[2021-04-05] MEDS: hyDROXYzine 25 mg Capsule 50 MG PO (14:55)
--- NOTE | 2021-04-05 14:56 | PC.NURSE ---
Addendum entered by Esther Espinal LPN 04/05/21 17:22: prn meds effective no further c/o anxiety/agitation currently. pt resting quietly in bed in room, oxygen on, cont to be 1:1 with sitter Original Note: PRN VISTARIL & HALDOL VISTARIL 50 MG GIVEN PO WITH HALDOL 5 MG PO PER PT C/O INCREASED ANXIETY/AGITATION. PT YELLING FROM ROOM, RIPPED OFF HER OXYGEN TUBING, TOLD CHARGE NURSE TO GET THE FUCK OUT OF MY ROOM PT C/O IT BEING TOO HOT, TEMPERATURE ADJUSTED SO PT COULD BECOME MORE COMFORTABLE, AIR CONDITIONING RUNNING ON JET COOL. PT TOOK MEDS AFTER STAFF EDUCATED HER ON PRN MEDS, PT TEARFUL, REFUSED TO PUT BACK ON HER OXYGEN. PT CONT TO BE 1:1 WITH SITTER. STAFF WILL CONT TO MONITOR CLOSELY.
[2021-04-05] MEDS: metformin 500 mg Tablet PO (16:51)
[2021-04-05 19:38] LABS: Glucose Point of Care 155 mg/dL (70-110)
[2021-04-05] MEDS: atorvastatin 40 mg Tablet 20 MG PO (20:37)
[2021-04-05] MEDS: apixaban 5 mg Tablet PO (20:37)
[2021-04-05] MEDS: gabapentin 300 mg Capsule PO (20:37)
[2021-04-05] MEDS: trazodone 150 mg Tablet PO (20:37)
[2021-04-05] MEDS: dicyclomine 10 mg Capsule PO (20:38)
[2021-04-05] MEDS: predniSONE 20 mg Tablet PO (20:38)
[2021-04-05] MEDS: lamoTRIgine 100 mg Tablet PO (20:38)
[2021-04-05] MEDS: acetaminophen 325 mg Tablet 650 MG PO (20:38)
[2021-04-06] VITALS (13 sets, daily range): BP systolic 104–116; BP diastolic 62–70; PULSE 58–90; RESP 15–28; TEMP 36.6–37; O2SAT 90–98
[2021-04-06 06:29] LABS: Glucose Point of Care 174 mg/dL (70-110)
[2021-04-06] MEDS: duloxetine 60 mg Capsule 120 MG PO (07:00)
[2021-04-06] MEDS: metformin 500 mg Tablet PO ×2 (07:01→16:36)
[2021-04-06] MEDS: albuterol 8 gm MDI 1 PUFF INHALATION (07:37)
[2021-04-06] MEDS: levothyroxine 100 mcg Tablet PO (10:04)
[2021-04-06] MEDS: aspirin 81 mg EC Tablet PO (10:04)
[2021-04-06] MEDS: predniSONE 20 mg Tablet PO ×2 (10:04→20:38)
[2021-04-06] MEDS: pantoprazole DR 40 mg Tablet PO (10:04)
[2021-04-06] MEDS: amlodipine 10 mg Tablet PO (10:05)
[2021-04-06] MEDS: lamoTRIgine 100 mg Tablet PO ×2 (10:05→20:38)
[2021-04-06] MEDS: gabapentin 300 mg Capsule PO ×3 (10:05→20:38)
[2021-04-06] MEDS: apixaban 5 mg Tablet PO ×2 (10:05→20:38)
[2021-04-06] MEDS: montelukast sodium 10 mg Tablet PO (10:06)
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
[2021-04-06 11:46] LABS: Glucose Point of Care 145 mg/dL (70-110)
[2021-04-06 16:50] LABS: Glucose Point of Care 274 mg/dL (70-110)
[2021-04-06] MEDS: atorvastatin 40 mg Tablet 20 MG PO (20:38)
[2021-04-06] MEDS: ondansetron 4 MG Tablet PO (20:38)
[2021-04-06] MEDS: dicyclomine 10 mg Capsule PO (20:38)
[2021-04-06] MEDS: trazodone 150 mg Tablet PO (20:38)
[2021-04-07 00:45] VITALS: PULSE 83; RESP 20; O2SAT 94
[2021-04-07 04:05] VITALS: PULSE 88; RESP 19; O2SAT 95
[2021-04-07 06:00] VITALS: BP 124/70; PULSE 62; RESP 16; TEMP 36; O2SAT 97
[2021-04-07] MEDS: duloxetine 60 mg Capsule 120 MG PO (06:35)
[2021-04-07] MEDS: metformin 500 mg Tablet PO (06:35)
[2021-04-07 06:36] LABS: Glucose Point of Care 248 mg/dL (70-110)
--- NOTE | 2021-04-07 08:56 | PC.SOCIAL ---
*IMM* Patient received Important Message from Medicare. Signed and placed in the chart. Patient received a copy.
[2021-04-07 09:36] VITALS: PULSE 80; RESP 16; O2SAT 94
[2021-04-07 09:39] VITALS: PULSE 85
[2021-04-07] MEDS: gabapentin 300 mg Capsule PO (09:41)
[2021-04-07] MEDS: lamoTRIgine 100 mg Tablet PO (09:42)
[2021-04-07] MEDS: apixaban 5 mg Tablet PO (09:42)
[2021-04-07] MEDS: ARIPiprazole 10 mg Tablet PO (09:42)
[2021-04-07] MEDS: levothyroxine 100 mcg Tablet PO (09:42)
[2021-04-07] MEDS: montelukast sodium 10 mg Tablet PO (09:42)
[2021-04-07] MEDS: amlodipine 10 mg Tablet PO (09:42)
[2021-04-07] MEDS: predniSONE 20 mg Tablet PO (09:42)
[2021-04-07] MEDS: pantoprazole DR 40 mg Tablet PO (09:42)
[2021-04-07] MEDS: aspirin 81 mg EC Tablet PO (09:42)
[2021-04-07 11:32] LABS: Glucose Point of Care 142 mg/dL (70-110)
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
== END 2021-04-07 14:19 | disposition home or self-care (01) | DRG 881 ==
LOC: ER 09:12 → NP 11:43
PROVIDERS: Admitting Provider Psychiatry & Neurology Psychiatry; Emergency Provider Emergency Medicine; PCP Nurse Practitioner Family; Visit Provider Psychiatry & Neurology Psychiatry
DX: F32.9 Major depressive disorder, single episode, unspecified (principal); F05 Delirium due to known physiological condition; J96.10 Chronic respiratory failure, unspecified whether with hypoxia or hypercapnia; F19.982 Other psychoactive substance use, unspecified with psychoactive substance-induced sleep disorder; F60.89 Other specific personality disorders; F43.12 Post-traumatic stress disorder, chronic; E03.9 Hypothyroidism, unspecified; I10 Essential (primary) hypertension; E78.5 Hyperlipidemia, unspecified; F17.210 Nicotine dependence, cigarettes, uncomplicated; G89.29 Other chronic pain; J44.9 Chronic obstructive pulmonary disease, unspecified; G47.419 Narcolepsy without cataplexy; K21.9 Gastro-esophageal reflux disease without esophagitis; M48.00 Spinal stenosis, site unspecified; E11.41 Type 2 diabetes mellitus with diabetic mononeuropathy; G56.20 Lesion of ulnar nerve, unspecified upper limb; G47.33 Obstructive sleep apnea (adult) (pediatric); Z79.84 Long term (current) use of oral hypoglycemic drugs; Z59.0 Homelessness; Z79.01 Long term (current) use of anticoagulants; Z79.82 Long term (current) use of aspirin; Z86.19 Personal history of other infectious and parasitic diseases; Z99.81 Dependence on supplemental oxygen; Z86.718 Personal history of other venous thrombosis and embolism; Z81.4 Family history of other substance abuse and dependence; Z91.5 Personal history of self-harm; Z81.8 Family history of other mental and behavioral disorders; Z62.810 Personal history of physical and sexual abuse in childhood
CPT/HCPCS: 36415; 36416; 71045; 80053; 80306; 80307; 81003; 82962; 85025; 87426; 93005; 94640; 94660; 99285; J3535; J7512; Q0162

== ENCOUNTER → 2021-05-08 07:23 | Outpatient (BNVA) | payer MEDICARE, MEDICAID, SELFPAY ==
[2020-07-18 17:32] VITALS: BP 115/65; BMI 41.0
== END ==
PROVIDERS: PCP Nurse Practitioner Family; Visit Provider Nurse Practitioner Psychiatric/Mental Health
DX: F31.81 Bipolar II disorder (principal); F43.12 Post-traumatic stress disorder, chronic; J44.9 Chronic obstructive pulmonary disease, unspecified
CPT/HCPCS: 99214

== ENCOUNTER 2021-08-25 10:01 | Observation (INO) | payer MEDICARE, MEDICAID, SELFPAY ==
[2020-07-18 17:32] VITALS: BP 115/65; BMI 41.0
[2021-08-25] VITALS (13 sets, daily range): BP systolic 128–172; BP diastolic 74–97; PULSE 64–91; RESP 16–31; TEMP 36.6–36.8; O2SAT 92–98; BMI 37.3
--- NOTE | 2021-08-25 10:16 | XR_ITS ---
WS: [id number] Portable AP upright chest, 08/25/2021 Clinical Data: dyspnea/cough Comparison: Portable chest, 04/05/2021. Findings: No nodules, masses or effusions are seen. The heart is normal. The pulmonary vascularity is not increased. No pneumonia or pneumothorax is seen. The diaphragms are flattened. The aortic arch a nd descending thoracic aorta show tortuosity. XR/XR chest 1V portable [id number] Impression: Atherosclerosis and hyperinflation.
--- NOTE | 2021-08-25 10:17 | ECG_ITS ---
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
--- NOTE | 2021-08-25 10:42 | W.ED.SOB ---
HPI - SOB/Dyspnea General: Chief Complaint: Shortness of Breath/Dyspnea Stated Complaint: SHORT OF BREATH Time Seen by Provider: 08/25/21 10:04 History of Present Illness: HPI Narrative: 55-year-old female presents emergency room via EMS complaining of shortness of breath fatigue. She has been using albuterol every 4 hours at home for the last 3 days with no improvement of symptoms. She denies any diarrhea or vomiting. She not had any change in baseline productive cough. She has a long history of COPD normally is not on oxygen. Has a history of hypercapnic respiratory failure in the past. She denies any chest pain. MD elicited complaint: shortness of breath and cough Pertinent past history: COPD Onset (ago): day(s) Timing: constant Severity: mild Exacerbating factors: movement and coughing Relieving factors: rest and bronchodilators Known history of: COPD Associated symptoms: Reports chest congestion, chest pain and cough; Deny abdominal pain, diaphoresis, dizziness, extremity pain, fever(s), hemoptysis, lightheadedness, myalgias, nausea, orthopnea, palpitations, paresthesias, polydipsia, polyuria, rash, sense of impending doom, syncope or vomiting Treatment prior to arrival: oxygen and bronchodilator Review of Systems Const: Denies: fever(s) or diaphoresis ENMT: Denies: throat pain, ear or mastoid pain, nasal discharge or nasal congestion Card: Reports: chest pain; Denies: palpitations, lightheadedness, syncope or orthopnea Resp: Reports: chest congestion; Denies: hemoptysis GI: Denies: abdominal pain, nausea or vomiting : Denies: flank pain, difficulty voiding, dysuria, urinary frequency or urinary urgency Musc: Denies: extremity pain Skin/Breast: Denies: rash or pruritus Neuro: Denies: dizziness Endo: Denies: polyuria or polydipsia PFS ED PFSH: Medical History Acute on chronic respiratory failure with hypoxemia Anxiety and depression Bilateral pulmonary embolism -on AC with Eliquis Bipolar 2 disorder Chronic pain Chronic post-traumatic stress disorder (PTSD) COPD (chronic obstructive pulmonary disease) Chronic COPD. Chronic smoking. She is aware of the risks of cigarette smoking with COPD. GERD (gastroesophageal reflux disease) Hepatitis C virus infection cured after antiviral drug therapy Hyperlipidemia Hypertension Hypothyroidism Insomnia Obstructive sleep apnea Ovarian cyst Pneumonia Psychiatric care Spinal stenosis Tobacco use disorder, continuous Surgical History H/O section Status post left foot surgery Family History Mother Cancer Breast cancer Social History Smoking and tobacco status: current every day smoker cigarettes Packs smoked per day: 1 Years cigarettes smoked: 30 Quit status (tobacco): considering quitting Second hand smoke exposure: No Alcohol intake: never Counseling given: No Last substance use date: 10/26/19 Household members: children Current occupational status: unemployed History of recent travel: No Physical Exam Const: COMMON NORMALS: no acute distress GENERAL APPEARANCE: cooperative and comfortable ORIENTATION/CONSCIOUSNESS: Yes awake, Yes oriented to person, Yes oriented to place and Yes oriented to time HENMT: COMMON NORMALS: normocephalic, atraumatic and hearing grossly normal bilaterally HEAD & SCALP: normocephalic and atraumatic Neck/C-Spine: COMMON NORMALS: no JVD Resp: COMMON NORMALS: normal respiratory effort, No retractions, No use of accessory muscles and clear to auscultation bilaterally AUSCULTATION: clear to auscultation bilaterally Cardio: COMMON NORMALS: no JVD, regular rate, regular rhythm and No murmurs present (Cardio) RATE: regular rate RHYTHM: regular rhythm GI: COMMON NORMALS: Soft to palpation and No hepatosplenomegaly present AUSCULTATION: Yes normoactive bowel sounds PALPATION: Yes Soft to palpation, No Tenderness to palpation present (GI), No Guarding due to palpation present (GI) and Yes No hepatosplenomegaly present Extremity: COMMON NORMALS: normal to inspection, capillary refill normal, no clubbing, cyanosis or edema, no calf tenderness and no pedal edema Neuro: SENSORIUM/ORIENTATION: Yes oriented to person, Yes oriented to place and Yes oriented to time Skin: COMMON NORMALS: no rashes or lesions noted GENERAL SKIN EXAM: no rashes or lesions noted Course Vital Signs: Vital signs: Vital Signs Temperature 98.2 F 08/25/21 10:01 Pulse Rate 73 08/25/21 12:59 Respiratory Rate 16 08/25/21 10:01 Blood Pressure 172/91 08/25/21 10:01 Pulse Oximetry 93 08/25/21 12:59 MDM - SOB/Dyspnea MDM Narrative: Medical decision making narrative: Acute hypercapnic respiratory failure. Chest x-ray is unremarkable other than hyperinflation. Patient has improved with BiPAP and steroids. Discussed with hospitalist orders written. Patient will be admitted for observation Lab Data: Labs: Lab Results 08/25/21 08/25/21 08/25/21 10:16 10:59 10:59 WBC 9.0 10^3/uL 10^3/ uL (4.0-10.0) RBC 4.14 10^6/uL 10^6 /uL (4.1-5.3) Hgb 12.7 g/dL g/dL (11.5-15.3) Hct 37.9 % % (37.0-47.0) MCV 91.5 fl fl (81-99) MCH 30.7 pg pg (28.0-34.0) MCHC 33.5 g/dL g/dL (30.0-36.0) RDW 13.2 % % (12.1-15.1) Plt Count 198 10^3/cmm 10^3 /cmm (130-400) MPV 10.3 fL fL (7.4-10.4) Neut % (Auto) 79.5 % % Lymph % (Auto) 13.4 % % Benzie % (Auto) 5.6 % % Eos % (Auto) 0.6 % % Baso % (Auto) 0.7 % % Neut # (Auto) 7.18 10^3/uL 10^3 /uL (1.8-7.7) Lymph # (Auto) 1.2 10^3/uL 10^3/ uL (0.8-4.8) Benzie # (Auto) 0.5 10^3/uL 10^3/ uL (0.2-0.9) Eos # (Auto) 0.1 10^3/uL 10^3/ uL (0.0-0.8) Baso # (Auto) 0.1 10^3/uL 10^3/ uL (0.0-0.1) Nucleated RBC % (a uto) 0 % % Nucleated RBCs # 0.0 /100WBC /100W BC Specimen Type Arterial Sample Site Radial, right ABG pH 7.40 (7.35-7.45) ABG pCO2 53.9 mmHg H mmHg (35-45) ABG pO2 45.1 mmHg L mmHg (80.0-100.0) ABG HCO3 33.3 mmol/L H mmo l/L (22-26) ABG O2 Saturation 82.5 ABG Base Excess 6.9 mmol/L H mmol /L (-2.0-2.0) Glenn Test Pos A-a O2 Gradient 13.8 mmHg H mmHg (5-10) Hematocrit 40.5 % % (37-47) Hgb O2 Saturation 77.8 % L % (95-100) Carboxyhemoglobin 4.6 %THgb %THgb (0.4-20.1) Methemoglobin 1.2 % % (0.4-1.5) Total Hemoglobin 13.2 g/dL g/dL (12-16) Sodium 136.0 mmol/L mmol /L 136 mmol/L mmol/L (131-143) (136-145) Potassium 4.0 mmol/L mmol/L 4.2 mmol/L mmol/L (3.5-5.0) (3.5-5.1) Glucose 125.0 mg/dL H mg/ dL 117 mg/dL H mg/dL (70-115) (65-115) Ionized Calcium 1.2 mmol/L mmol/L (1.1-1.4) O2 Delivery Device Nc O2 Liters/Min 2.5 % % FiO2 30.0 % % Enterprise Data Architect ID Cak Chloride 97 mmol/L L mmol/ L (98-107) Carbon Dioxide 30 mmol/L H mmol/ L (22-29) Anion Gap 13.2 (5-19) BUN 4 mg/dL L mg/dL (6-20) Creatinine 0.2 mg/dL L mg/dL (0.5-0.9) GFR Calculation 366.1 mL/min H mL /min (90-130) Calculated Osmolal ity 280 mOsm/kg L mOs m/kg (285-295) Calcium 9.2 mg/dL mg/dL (8.5-10.5) Total Bilirubin 0.6 mg/dL mg/dL (0.15-1.2) AST 9 U/L U/L (0-32) ALT 9 U/L U/L (0-33) Alkaline Phosphata se 81 IU/L IU/L (35-105) Troponin T Baselin e Troponin T 120 Min [place] Troponin T Total Protein 6.2 g/dL L g/dL (6.6-8.7) Albumin 4.0 g/dL g/dL (3.5-5.2) Globulin 2.2 g/dL g/dL (1.3-4.6) 08/25/21 08/25/21 10:59 12:53 WBC RBC Hgb Hct MCV MCH MCHC RDW Plt Count MPV Neut % (Auto) Lymph % (Auto) Benzie % (Auto) Eos % (Auto) Baso % (Auto) Neut # (Auto) Lymph # (Auto) Benzie # (Auto) Eos # (Auto) Baso # (Auto) Nucleated RBC % (a uto) Nucleated RBCs # Specimen Type Sample Site ABG pH ABG pCO2 ABG pO2 ABG HCO3 ABG O2 Saturation ABG Base Excess Glenn Test A-a O2 Gradient Hematocrit Hgb O2 Saturation Carboxyhemoglobin Methemoglobin Total Hemoglobin Sodium Potassium Glucose Ionized Calcium O2 Delivery Device O2 Liters/Min FiO2 Enterprise Data Architect ID Chloride Carbon Dioxide Anion Gap BUN Creatinine GFR Calculation Calculated Osmolal ity Calcium Total Bilirubin AST ALT Alkaline Phosphata se Troponin T Baselin e 10 ng/L ng/L (0-10) Troponin T 120 Min [place] Cancelled Delta Troponin T Cancelled Total Protein Albumin Globulin Discharge Plan Discharge Patient Disposition: Placed in Observation Clinical Impression: Acute exacerbation of chronic obstructive airways disease, Hypertension, Non-insulin dependent type 2 diabetes mellitus, Acute hypercapnic respiratory failure Coding Level of Care Code ED Outboard Technician for Chg Fwd Exam Comprehensive
[2021-08-25 11:05] LABS: ABG PCO2 53.9 mmHg (35-45); Alveolar-Arterial Oxygen Gradi 13.8 mmHg (5-10); Arterial Blood Gas Hematocrit 40.5 % (37-47); Base Excess ABG 6.9 mmol/L (-2.0-2.0); Blood Gas Allen Test Pos; Blood Gas LPM 2.5 %; Blood Gas Operator Identificat CAK; Blood Gas Sample Site Radial, right; Blood Gas Sample Type Arterial; Carboxyhemoglobin 4.6 %THgb (0.4-20.1); HCO3 ABG 33.3 mmol/L (22-26); HGB O2 Sat 77.8 % (95-100); Ionized Calcium Level - ABG 1.2 mmol/L (1.1-1.4); Methemoglobin 1.2 % (0.4-1.5); Oxygen Device NC; Oxygen Saturation ABG 82.5; PO2 ABG 45.1 mmHg (80.0-100.0); Total Hemoglobin 13.2 g/dL (12-16)
[2021-08-25 11:16] LABS: Basophils # 0.1 10^3/uL (0.0-0.1); Basophils % 0.7 %; Eosinophils # 0.1 10^3/uL (0.0-0.8); Eosinophils % 0.6 %; Hematocrit 37.9 % (37.0-47.0); Hemoglobin 12.7 g/dL (11.5-15.3); Lymphocytes # 1.2 10^3/uL (0.8-4.8); Lymphocytes % 13.4 %; Mean Corpuscular HGB Conc 33.5 g/dL (30.0-36.0); Mean Corpuscular Hemoglobin 30.7 pg (28.0-34.0); Mean Corpuscular Volume 91.5 fl (81-99); Mean Platelet Volume 10.3 fL (7.4-10.4); Monocytes # 0.5 10^3/uL (0.2-0.9); Monocytes % 5.6 %; Neutrophils # 7.18 10^3/uL (1.8-7.7); Neutrophils % 79.5 %; Nucleated Red Blood Cells % 0 %; Platelet Count 198 10^3/cmm (130-400); Red Blood Count 4.14 10^6/uL (4.1-5.3); Red Cell Distribution Width 13.2 % (12.1-15.1)
[2021-08-25 11:29] LABS: Alanine Aminotransferase 9 U/L (0-33); Alkaline Phosphatase 81 IU/L (35-105); Anion Gap 13.2 (5-19); Aspartate Amino Transferase 9 U/L (0-32); Blood Urea Nitrogen 4 mg/dL (6-20); Calcium 9.2 mg/dL (8.5-10.5); Carbon Dioxide 30 mmol/L (22-29); Chloride 97 mmol/L (98-107); Globulin 2.2 g/dL (1.3-4.6); Glomerular Filtration Rate 366.1 mL/min (90-130); Glucose 117 mg/dL (65-115); Osmolality Calculated 280 mOsm/kg (285-295); Potassium 4.2 mmol/L (3.5-5.1); Sodium 136 mmol/L (136-145); Total Bilirubin 0.6 mg/dL (0.15-1.2); Total Protein 6.2 g/dL (6.6-8.7)
[2021-08-25 11:31] LABS: Troponin(5th) Baseline 10 ng/L (0-10)
--- NOTE | 2021-08-25 13:17 | PC.PHAR ---
pt unable to verify medications-medications entered are what shows has been filled recently on ext med history and what meds were entered on previous entered meds-pt states she [facility] [phone] they close at noon on fridays so no way to get med list-notes are made in the pharmacy comments
[2021-08-25 13:23] LABS: Troponin 5 2HR 8.73 ng/L (0-10); Troponin 5 2HR Delta -1.27 ABS# (0-10)
--- NOTE | 2021-08-25 15:17 | P.HP_ITS ---
Providers/Chief Complaint Primary Care Provider: OSCAR Montoya Chief Complaint: SHORT OF BREATH History of Present Illness 55 year old female with past medical history of COPD, 3 to 4 L home oxygen, pulmonary emboli on Eliquis, noninsulin-dependent type II, came in with chief complaint of worsening shortness of breath as well as worsening fatigue going on for the last 3 to 4 days, not responding to her home albuterol therapy. She denies any chest pain, fever, worsening cough, nasal congestion, headache. Upon arrival in the ER she was worked up for above-mentioned complaint: Imaging studies: XR chest : No infiltrates, no effusion, no increased pulmonary vascular congestion, no pneumothorax ABG: pH: 7.40, PCO2 53, PO2: 45, FiO2 30%. Pertinent labs: WBC 9:T, H&H:12.7/37.9, PLT : 198 , serum sodium: 136, serum potassium:4.2, BUN and serum creatinine: 4/0.2, Troponin trend: Without significant delta Patient received: Nebs and Solu-Medrol 125 IV x1 dose in the ER, and was placed on BiPAP Review of Systems Const: Denies: fever(s), chills or diaphoresis Card: Denies: palpitations, edema or swelling of feet/ankles Resp: Denies: pain on inspiration GI: Denies: abdominal pain, nausea, vomiting, diarrhea or constipation : Denies: flank pain Musc: Denies: back pain, extremity pain or extremity swelling Neuro: Denies: headache(s), difficulty walking or confusion Medications/Allergies Home Medications Medication Instructions Recorded Confirmed Last Taken Type atorvastatin [Lipitor] 20 mg PO QPM 10/22/19 08/25/21 03/22/21 History apixaban 5 mg tablet 5 mg PO BID tab 02/12/20 08/25/21 03/22/21 History albuterol sulfate 2 inh INHALATION Q4H PRN #18 gm 05/28/20 08/25/21 09/04/20 Rx montelukast 10 mg PO DAILY 05/28/20 08/25/21 03/22/21 History budesonide-formoterol [Symbicort] 2 puff INHALATION BID 07/15/20 08/25/21 03/22/21 History metformin 500 mg PO BID 07/15/20 08/25/21 03/22/21 History levothyroxine 100 mcg PO DAILY 04/05/21 08/25/21 Unknown History modafinil 200 mg tablet 200 mg PO DAILY #30 tab 06/20/21 08/25/21 Unknown Rx duloxetine 60 mg capsule,delayed 120 mg PO QAM #60 cap 07/03/21 08/25/21 Unknown Rx release lamotrigine 100 mg tablet 100 mg PO BID #60 tab 07/03/21 08/25/21 Unknown Rx acetaminophen [Tylenol] 975 mg PO BID PRN 07/24/21 08/25/21 Unknown History Seroquel 50 - 100 mg PO DAILY 08/25/21 08/25/21 Unknown History albuterol sulfate 2.5 mg INHALATION Q6H PRN 08/25/21 08/25/21 Unknown History alendronate 70 mg PO Q7D 08/25/21 08/25/21 Unknown History gabapentin 300 mg PO TID 08/25/21 08/25/21 Unknown History omeprazole [Prilosec] 40 mg PO DAILY 08/25/21 08/25/21 Unknown History Allergies Allergy/AdvReac Type Severity Reaction Status Date / Time levofloxacin [From Levaquin] Allergy ADR-Abdominal Verified 07/21/21 11:53 Pain Sulfa (Sulfonamide Allergy ADR-Blurry Verified 07/21/21 11:53 Antibiotics) Vision PFSH Acute PFSH: Medical History (Updated 08/25/21 @ 18:32 by Feng You MD) Acute on chronic respiratory failure with hypoxemia Anxiety and depression Bilateral pulmonary embolism -on AC with Eliquis Bipolar 2 disorder Chronic pain Chronic post-traumatic stress disorder (PTSD) COPD (chronic obstructive pulmonary disease) Chronic COPD. Chronic smoking. She is aware of the risks of cigarette smoking with COPD. GERD (gastroesophageal reflux disease) Hepatitis C virus infection cured after antiviral drug therapy Hyperlipidemia Hypertension Hypothyroidism Insomnia Obstructive sleep apnea Ovarian cyst Pneumonia Psychiatric care Spinal stenosis Tobacco use disorder, continuous Surgical History H/O section Status post left foot surgery Family History Mother Cancer Breast cancer Social History Smoking and tobacco status: current every day smoker cigarettes Packs smoked per day: 1 Years cigarettes smoked: 30 Quit status (tobacco): considering quitting Second hand smoke exposure: No Alcohol intake: never Counseling given: No Last substance use date: 10/26/19 Household members: children Current occupational status: unemployed History of recent travel: No Vitals/I&O/Wt Last Vital Signs Temp 98.2 F 08/25/21 10:01 Pulse 91 08/25/21 13:52 Resp 20 H 08/25/21 13:52 BP 141/97 08/25/21 13:52 Pulse Ox 94 08/25/21 13:52 Weight last 48 hrs Weight 106.594 kg Physical Exam Const: COMMON NORMALS: patient oriented x3 HENMT: COMMON NORMALS: normocephalic and atraumatic HEAD & SCALP: normocephalic and atraumatic Resp: OTHER: Bilateral wheezing present in both the lungs Cardio: COMMON NORMALS: regular rate, regular rhythm, S1 normal heart sound present, S2 normal heart sound present, No gallops present (Cardio), No murmurs present (Cardio), No rub (Cardio) and Peripheral pulses 2+ throughout RATE: regular rate RHYTHM: regular rhythm HEART SOUNDS: S1 normal heart sound present and S2 normal heart sound present PERIPHERAL PULSES: Peripheral pulses 2+ throughout GI: COMMON NORMALS: Normal to inspection, nondistended, normoactive bowel sounds present, Soft to palpation, non-tender, No hepatosplenomegaly present and no masses AUSCULTATION: Yes normoactive bowel sounds PALPATION: Yes Soft to palpation and Yes No hepatosplenomegaly present RECTAL EXAM: deferred Extremity: COMMON NORMALS: no clubbing, cyanosis or edema and no pedal edema Neuro: COMMON NORMALS: patient oriented x3 Data : 08/25/21 10:59 08/25/21 10:59 A&P Assessment and plan (1) Acute exacerbation of chronic obstructive airways disease: Patient came in with worsening shortness of breath, different from her baseline, bilateral wheezing. Currently requiring BiPAP. DuoNeb Steroids Azithromycin Supplemental oxygen as needed Status: Acute (2) Bilateral pulmonary embolism: Continue Eliquis Status: Acute (3) Hypothyroidism: Continue levothyroxine Status: Acute Qualifiers: Hypothyroidism type: unspecified Qualified Code(s): E03.9 - Hypothyroidism, unspecified (4) Hypertension: Amlodipine 5 mg p.o. daily Status: Acute (5) Non-insulin dependent type 2 diabetes mellitus: Low-dose sliding scale insulin Monitor fingerstick glucose Carbohydrate consistent Status: Acute Additional A&P Information Chronic hypercapnic hypoxic respiratory failure: DVT prophylaxis:Not needed on eliquis Attestations Medical Necessity Statement*: Patient needs to be in hospital for management of COPD exacerbation. Coding Level of Care Code Acute X Ray Tech for [facility] Fwd Diagnoses Acute exacerbation of chronic obstructive airways disease J44.1 Bilateral pulmonary embolism I26.99 Hypothyroidism E03.9 Hypothyroidism type: unspecified Hypertension I10 Non-insulin dependent type 2 diabetes mellitus E11.9
--- NOTE | 2021-08-25 15:34 | PC.NURSE ---
Report to Ayde PARNELL, [id number]. Contacted respiratory to dc bipap for transport. Respiratory occupied at this time. Will move pt after respiratory dc's Bipap.
[2021-08-25] MEDS: ipratropium-albuterol 3 mL Neb INHALATION ×2 (16:15→21:17)
--- NOTE | 2021-08-25 16:17 | ECG_ITS ---
[facility] Test Date: 2021-08-25 Pat Name: Tomeka Marshall Department: Room: Gender: Female Design Director: : [id number] Requested By: Jason Ge Order Number: [id number] Reading MD: PRIYA ERAZO Measurements Intervals [place] Rate: 76 P: 73 ND: 170 QRS: 84 QRSD: 101 T: 78 QT: 385 QTc: 435 Interpretive Statements SINUS RHYTHM WITH OCCASIONAL VENTRICULAR PREMATURE COMPLEXES MODERATE T-WAVE ABNORMALITY, CONSIDER ANTERIOR ISCHEMIA [-0.1+ mV T-WAVE IN V3/V4] Compared to ECG 08/25/2021 10:39:16 Ventricular premature complex(es) now present T-wave abnormality now present Possible ischemia now present Electronically Signed On 08-26-2021 0:03:29 CDT by PRIYA ERAZO [id number]
[2021-08-25] MEDS: atorvastatin 40 mg Tablet 20 MG PO (17:39)
[2021-08-25] MEDS: azithromycin 500 MG in sodium chloride 0.9% 250 ML 250 MG IV (17:41)
[2021-08-25] MEDS: lamoTRIgine 100 mg Tablet PO (17:41)
[2021-08-25] MEDS: apixaban 5 mg Tablet PO (17:41)
[2021-08-25] MEDS: acetaminophen 325 mg Tablet 650 MG PO (17:44)
[2021-08-25 19:09] LABS: Troponin 5 6HR 8.05 ng/L (0-10)
[2021-08-25 19:11] LABS: Troponin 5 6HR Delta -1.95 ng/L (0-12)
[2021-08-25 20:25] LABS: Glucose Point of Care 239 mg/dL (70-110)
[2021-08-25] MEDS: gabapentin 300 mg Capsule PO (20:45)
[2021-08-25] MEDS: insulin lispro 100 unit/1 mL SUBCUT (20:45)
[2021-08-26] VITALS (10 sets, daily range): BP systolic 132–163; BP diastolic 75–78; PULSE 70–90; RESP 20–26; TEMP 36.5–36.8; O2SAT 89–97
[2021-08-26] MEDS: ipratropium-albuterol 3 mL Neb INHALATION ×2 (02:49→08:44)
[2021-08-26] MEDS: acetaminophen 325 mg Tablet 650 MG PO ×2 (03:30→09:46)
[2021-08-26] MEDS: duloxetine 60 mg Capsule 120 MG PO (05:27)
--- NOTE | 2021-08-26 05:49 | PC.NURSE ---
Patient AAOx4, rested throughout shift, VSS, no c/o pain, no needs at this time, room clutter free and call light in reach. Turns self frequently.
[2021-08-26 06:03] LABS: Basophils % 0.1 %; Hematocrit 41.2 % (37.0-47.0); Hemoglobin 13.1 g/dL (11.5-15.3); Lymphocytes # 0.8 10^3/uL (0.8-4.8); Lymphocytes % 7.9 %; Mean Corpuscular HGB Conc 31.8 g/dL (30.0-36.0); Mean Corpuscular Hemoglobin 29.8 pg (28.0-34.0); Mean Corpuscular Volume 93.8 fl (81-99); Mean Platelet Volume 10.6 fL (7.4-10.4); Monocytes # 0.2 10^3/uL (0.2-0.9); Monocytes % 2.2 %; Neutrophils # 8.69 10^3/uL (1.8-7.7); Neutrophils % 89.1 %; Nucleated Red Blood Cells % 0 %; Platelet Count 211 10^3/cmm (130-400); Red Blood Count 4.39 10^6/uL (4.1-5.3); Red Cell Distribution Width 12.9 % (12.1-15.1); White Blood Count 9.8 10^3/uL (4.0-10.0)
[2021-08-26 06:19] LABS: Alanine Aminotransferase 8 U/L (0-33); Albumin Level 3.7 g/dL (3.5-5.2); Alkaline Phosphatase 80 IU/L (35-105); Anion Gap 12.3 (5-19); Aspartate Amino Transferase 8 U/L (0-32); Blood Urea Nitrogen 10 mg/dL (6-20); Calcium 9.2 mg/dL (8.5-10.5); Carbon Dioxide 27 mmol/L (22-29); Chloride 96 mmol/L (98-107); Globulin 2.7 g/dL (1.3-4.6); Glomerular Filtration Rate 366.1 mL/min (90-130); Glucose 132 mg/dL (65-115); Osmolality Calculated 273 mOsm/kg (285-295); Potassium 4.3 mmol/L (3.5-5.1); Sodium 131 mmol/L (136-145); Total Bilirubin 0.4 mg/dL (0.15-1.2); Total Protein 6.4 g/dL (6.6-8.7)
[2021-08-26 06:49] LABS: Glucose Point of Care 149 mg/dL (70-110)
[2021-08-26] MEDS: apixaban 5 mg Tablet PO (09:18)
[2021-08-26] MEDS: amlodipine 5 mg Tablet PO (09:18)
[2021-08-26] MEDS: lamoTRIgine 100 mg Tablet PO (09:18)
[2021-08-26] MEDS: quetiapine 100 mg Tablet PO (09:18)
[2021-08-26] MEDS: montelukast sodium 10 mg Tablet PO (09:18)
[2021-08-26] MEDS: pantoprazole DR 40 mg Tablet PO (09:18)
[2021-08-26] MEDS: levothyroxine 100 mcg Tablet PO (09:18)
[2021-08-26] MEDS: gabapentin 300 mg Capsule PO (09:18)
[2021-08-26 09:24] LABS: Glucose Point of Care 179 mg/dL (70-110)
--- NOTE | 2021-08-26 11:13 | P.DS_ITS ---
Discharge Providers Date of Admission: 08/25/21 15:08 Date of Discharge: August 26, 2021 Attending Provider at Admission: Feng You MD Attending Provider at Discharge: Feng You MD Primary Care Provider: OSCAR Montoya Diagnoses at Discharge Discharge Diagnosis (1) Acute exacerbation of chronic obstructive airways disease: Status: Resolved (2) Bilateral pulmonary embolism: Status: Acute Permanent problem details: -on AC with Eliquis (3) Hypothyroidism: Status: Acute Qualifiers: Hypothyroidism type: unspecified Qualified Code(s): E03.9 - Hypothyroidism, unspecified (4) Hypertension: Status: Acute (5) Non-insulin dependent type 2 diabetes mellitus: Status: Acute Reason for Visit Reason for Visit: SHORT OF BREATH Hospital Course Hospital Course 55 year old female with past medical history of COPD, 3 to 4 L home oxygen, pulmonary emboli on Eliquis, noninsulin-dependent type II, came in with chief complaint of worsening shortness of breath as well as worsening fatigue going on for the last 3 to 4 days, not responding to her home albuterol therapy. She denies any chest pain, fever, worsening cough, nasal congestion, headache. Upon arrival in the ER she was worked up for above-mentioned complaint: Imaging studies: XR chest : No infiltrates, no effusion, no increased pulmonary vascular congestion, no pneumothorax ABG: pH: 7.40, PCO2 53, PO2: 45, FiO2 30%. Pertinent labs: WBC 9:T, H&H:12.7/37.9, PLT : 198 , serum sodium: 136, serum potassium:4.2, BUN and serum creatinine: 4/0.2, Troponin trend: Without significant delta.Patient received: Nebs and Solu-Medrol 125 IV x1 dose in the ER, and was placed on BiPAP.During the hospital stay she was kept on IV steroids , nebs , azithromycin, supplemental oxygen as needed. She responded pretty well to the above medical management her shortness of breath had significantly improved, she was not actively wheezing, was requiring baseline oxygen. She was discharged on prednisone 40 mg p.o. daily for 5 days, as well as azithromycin for 3 days.She will continue to follow with a primary care physician as an outpatient. Physical Exam Const: COMMON NORMALS: patient oriented x3 HENMT: COMMON NORMALS: normocephalic and atraumatic HEAD & SCALP: normocephalic and atraumatic Resp: COMMON NORMALS: normal respiratory effort and clear to auscultation bilaterally AUSCULTATION: clear to auscultation bilaterally Cardio: COMMON NORMALS: regular rate, regular rhythm, S1 normal heart sound present, S2 normal heart sound present, No gallops present (Cardio), No murmurs present (Cardio), No rub (Cardio) and Peripheral pulses 2+ throughout RATE: regular rate RHYTHM: regular rhythm HEART SOUNDS: S1 normal heart sound present and S2 normal heart sound present PERIPHERAL PULSES: Peripheral pulses 2+ throughout GI: COMMON NORMALS: Normal to inspection, nondistended, normoactive bowel sounds present, Soft to palpation, non-tender, No hepatosplenomegaly present and no masses AUSCULTATION: Yes normoactive bowel sounds PALPATION: Yes Soft to palpation and Yes No hepatosplenomegaly present RECTAL EXAM: deferred Extremity: COMMON NORMALS: no clubbing, cyanosis or edema and no pedal edema Neuro: COMMON NORMALS: patient oriented x3 Discharge Data Data Completed and Pending: Completed Studies During Hospitalization Category Date Time Status XR chest 1V [place] ble [id number] Stat Exams 08/25/21 10:16 Completed Pending at discharge Category Date Time Status Basic Metabolic P raven AM LABS Lab 08/27/21 04:00 Ordered Basic Metabolic P rvaen AM LABS Lab 08/28/21 04:00 Ordered Complete Blood Co unt w/Auto AM LABS Lab 08/27/21 04:00 Ordered Complete Blood Co unt w/Auto AM LABS Lab 08/28/21 04:00 Ordered Labs from last 24 hours 08/26/21 08/26/21 08/26/21 08:03 06:43 05:32 WBC RBC Hgb Hct MCV MCH MCHC RDW Plt Count MPV Neut % (Auto) Lymph % (Auto) [place] % (Auto) Eos % (Auto) Baso % (Auto) Neut # (Auto) Lymph # (Auto) [place] # (Auto) Eos # (Auto) Baso # (Auto) Nucleated RBC % (a uto) Nucleated RBCs # Sodium 131 L Potassium 4.3 Chloride 96 L Carbon Dioxide 27 Anion Gap 12.3 BUN 10 Creatinine 0.2 L GFR Calculation 366.1 H Glucose 132 H POC Glucose 179 H 149 H Calculated Osmolal ity 273 L Calcium 9.2 Total Bilirubin 0.4 AST 8 ALT 8 Alkaline Phosphata se 80 Troponin T Baselin e Troponin T 120 Min [place] Delta Troponin T Troponin T Hi Sens 6Hr Troponin T Hi Sens 6Hr Delta Total Protein 6.4 L Albumin 3.7 Globulin 2.7 08/26/21 08/25/21 08/25/21 05:32 20:13 18:32 WBC 9.8 RBC 4.39 Hgb 13.1 Hct 41.2 MCV 93.8 MCH 29.8 MCHC 31.8 D RDW 12.9 Plt Count 211 MPV 10.6 H Neut % (Auto) 89.1 Lymph % (Auto) 7.9 [place] % (Auto) 2.2 Eos % (Auto) 0.0 Baso % (Auto) 0.1 Neut # (Auto) 8.69 H Lymph # (Auto) 0.8 [place] # (Auto) 0.2 Eos # (Auto) 0.0 Baso # (Auto) 0.0 Nucleated RBC % (a uto) 0 Nucleated RBCs # 0.0 Sodium Potassium Chloride Carbon Dioxide Anion Gap BUN Creatinine GFR Calculation Glucose POC Glucose 239 H Calculated Osmolal ity Calcium Total Bilirubin AST ALT Alkaline Phosphata se Troponin T Baselin e Troponin T 120 Min [place] Delta Troponin T Troponin T Hi Sens 6Hr 8.05 Troponin T Hi Sens 6Hr Delta -1.95 L Total Protein Albumin Globulin 08/25/21 08/25/21 08/25/21 12:53 12:53 10:59 WBC RBC Hgb Hct MCV MCH MCHC RDW Plt Count MPV Neut % (Auto) Lymph % (Auto) [place] % (Auto) Eos % (Auto) Baso % (Auto) Neut # (Auto) Lymph # (Auto) [place] # (Auto) Eos # (Auto) Baso # (Auto) Nucleated RBC % (a uto) Nucleated RBCs # Sodium Potassium Chloride Carbon Dioxide Anion Gap BUN Creatinine GFR Calculation Glucose POC Glucose Calculated Osmolal ity Calcium Total Bilirubin AST ALT Alkaline Phosphata se Troponin T Baselin e 10 Troponin T 120 Min [place] 8.73 Cancelled Delta Troponin T -1.27 L Cancelled Troponin T Hi Sens 6Hr Troponin T Hi Sens 6Hr Delta Total Protein Albumin Globulin 08/25/21 08/25/21 10:59 10:59 WBC 9.0 RBC 4.14 Hgb 12.7 Hct 37.9 MCV 91.5 MCH 30.7 MCHC 33.5 RDW 13.2 Plt Count 198 MPV 10.3 Neut % (Auto) 79.5 Lymph % (Auto) 13.4 [place] % (Auto) 5.6 Eos % (Auto) 0.6 Baso % (Auto) 0.7 Neut # (Auto) 7.18 Lymph # (Auto) 1.2 [place] # (Auto) 0.5 Eos # (Auto) 0.1 Baso # (Auto) 0.1 Nucleated RBC % (a uto) 0 Nucleated RBCs # 0.0 Sodium 136 Potassium 4.2 Chloride 97 L Carbon Dioxide 30 H Anion Gap 13.2 BUN 4 L Creatinine 0.2 L GFR Calculation 366.1 H Glucose 117 H POC Glucose Calculated Osmolal ity 280 L Calcium 9.2 Total Bilirubin 0.6 AST 9 ALT 9 Alkaline Phosphata se 81 Troponin T Baselin e Troponin T 120 Min [place] Delta Troponin T Troponin T Hi Sens 6Hr Troponin T Hi Sens 6Hr Delta Total Protein 6.2 L Albumin 4.0 Globulin 2.2 Vitals: Last Vital Signs Temp 97.9 F 08/26/21 08:00 Pulse 81 08/26/21 08:50 Resp 20 H 08/26/21 08:44 BP 163/78 08/26/21 08:00 Pulse Ox 93 08/26/21 08:50 Discharge Plan Discharge Patient Disposition: Home Condition: Stable Prescriptions: New prednisone 20 mg tablet 40 mg PO DAILY 5 Days RF: 0 azithromycin 500 mg tablet 500 mg PO DAILY 3 Days Qty: 3 RF: 0 Continued Eliquis 5 mg tablet 5 mg PO BID RF: 0 modafinil [Provigil] 200 mg tablet 200 mg PO DAILY Qty: 30 RF: 5 duloxetine [Cymbalta] 60 mg capsule,delayed release(DR/EC) 120 mg PO QAM Qty: 60 RF: 0 lamotrigine 100 mg tablet 100 mg PO BID Qty: 60 RF: 0 montelukast 10 mg tablet 10 mg PO DAILY RF: 0 albuterol sulfate 90 mcg/actuation HFA aerosol inhaler 2 inh INHALATION Q4H PRN (Reason: shortness of breath or wheezing) Qty: 18 RF: 0 metformin 500 mg tablet 500 mg PO BID RF: 0 budesonide-formoterol [Symbicort] 160-4.5 mcg/actuation HFA aerosol inhaler 2 puff INHALATION BID RF: 0 acetaminophen [Tylenol] 325 mg Tablet 975 mg PO BID PRN (Reason: Pain) RF: 0 albuterol sulfate 2.5 mg /3 mL (0.083 %) solution for nebulization 2.5 mg inhalation Q6H PRN (Reason: Shortness Of Breath) RF: 0 alendronate 70 mg tablet 70 mg PO Q7D RF: 0 omeprazole 40 mg Capsule,Delayed Release(Dr/Ec) 40 mg PO DAILY RF: 0 gabapentin 300 mg Capsule 300 mg PO TID RF: 0 Seroquel 100 mg tablet 50 - 100 mg PO DAILY RF: 0 atorvastatin [Lipitor] 20 mg Tablet 20 mg PO QPM RF: 0 levothyroxine 100 mcg tablet 100 mcg PO DAILY RF: 0 Discharge Orders: Discharge Order (Routine); Ordered 08/26/21 Ordered By: Feng You Referrals: Tayler Lan, SR. MERCHANDISE PLANNER [Primary Care Provider] - 2 weeks (Please follow up with your primary care provider within two weeks.) Discharge Diet: Diabetic Discharge Activity: Resume usual activity Patient Instructions: Prednisone (By mouth), Azithromycin (By mouth), COPD (Chronic Obstructive Pulmonary Disease) (GEN), COPD Stoplight, Opioid Safety Discharge Attestations Time Spent in Discharge Care*: less than 30 min Specific Discharge Activities: educating patient, educating and/or supporting family/caregiver, discussing with shoe caser/social workers/dc planners, documenting/other paperwork and evaluating patient/reviewing data Status at Discharge: Cognitive status at discharge: cognitively intact , Behavioral status at discharge: cooperative , Quality Metrics Clinical Quality Measures During this hospital stay, did patient experience: None Coding Level of Care Code Acute Chg FW DC note Diagnoses Acute exacerbation of chronic obstructive airways disease J44.1 Bilateral pulmonary embolism I26.99 Hypothyroidism E03.9 Hypothyroidism type: unspecified Hypertension I10 Non-insulin dependent type 2 diabetes mellitus E11.9
[2021-08-26 11:39] LABS: Glucose Point of Care 162 mg/dL (70-110)
== END 2021-08-26 13:52 | disposition home or self-care (01) ==
LOC: ER 13:16 → MEDSURG 15:47
PROVIDERS: Admitting Provider Internal Medicine; Emergency Provider Family Medicine; PCP Nurse Practitioner Family; Visit Provider Internal Medicine
DX: J44.1 Chronic obstructive pulmonary disease with (acute) exacerbation (principal); I26.99 Other pulmonary embolism without acute cor pulmonale; J96.02 Acute respiratory failure with hypercapnia; E03.9 Hypothyroidism, unspecified; I10 Essential (primary) hypertension; E78.5 Hyperlipidemia, unspecified; K21.9 Gastro-esophageal reflux disease without esophagitis; E11.9 Type 2 diabetes mellitus without complications; Z99.81 Dependence on supplemental oxygen; Z79.01 Long term (current) use of anticoagulants; Z79.84 Long term (current) use of oral hypoglycemic drugs; F17.210 Nicotine dependence, cigarettes, uncomplicated
CPT/HCPCS: 36415; 36416; 71045; 80051; 80053; 82330; 82805; 82962; 84484; 85025; 93005; 94640; 94660; 96365; 96366; 96372; 96375; 99291; G0378; J0456; J1815; J2930; J7050

== ENCOUNTER → 2021-09-11 07:15 | Outpatient (BNVA) | payer MEDICARE, MEDICAID, SELFPAY ==
[2020-07-18 17:32] VITALS: BP 115/65; BMI 41.0
== END ==
PROVIDERS: PCP Nurse Practitioner Family; Visit Provider Nurse Practitioner Psychiatric/Mental Health
DX: F31.81 Bipolar II disorder (principal); F43.12 Post-traumatic stress disorder, chronic; J44.9 Chronic obstructive pulmonary disease, unspecified; G89.29 Other chronic pain; G47.00 Insomnia, unspecified; F17.209 Nicotine dependence, unspecified, with unspecified nicotine-induced disorders; G47.33 Obstructive sleep apnea (adult) (pediatric)
CPT/HCPCS: 99213

== ENCOUNTER → 2021-10-02 15:04 | Outpatient (BNVA) | payer MEDICAID, SELFPAY ==
[2020-07-18 17:32] VITALS: BP 115/65; BMI 41.0
== END ==
PROVIDERS: PCP Nurse Practitioner Family; Visit Provider Surgery
DX: Z20.822 Contact with and (suspected) exposure to COVID-19 (principal); Z86.010 Personal history of colon polyps
CPT/HCPCS: 87635

== ENCOUNTER 2021-10-03 12:54 | Emergency (ER) | payer MEDICARE, MEDICAID, SELFPAY ==
[2020-07-18 17:32] VITALS: BP 115/65; BMI 41.0
[2021-10-03 13:02] VITALS: BP 135/81; PULSE 70; RESP 16; TEMP 36.8; O2SAT 98; BMI 83.6
--- NOTE | 2021-10-03 13:31 | W.ED.SOB ---
HPI - SOB/Dyspnea General: Chief Complaint: Shortness of Breath/Dyspnea Stated Complaint: DIFFICULTY BREATHING/ NOT FEELING WELL Time Seen by Provider: 10/03/21 13:12 History of Present Illness: HPI Narrative: 56-year-old female who presents to the emergency room difficulty breathing not feeling well. She was checked for Covid yesterday the result is still outstanding. She has generalized body aches shortness of breath chills nonproductive cough she did have some loose stools initially now has not been having any stools at all. She denies any chest pain. She is on apixaban for history of A. fib. elicited complaint: shortness of breath and cough Pertinent past history: COPD, congestive heart failure and diabetes Onset (ago): day(s) Timing: constant Severity: mild Exacerbating factors: exertion and coughing Relieving factors: oxygen and rest Known history of: COPD, congestive heart failure and diabetes Associated symptoms: Reports chest congestion; Deny abdominal pain, chest pain, cough, diaphoresis, dizziness, extremity pain, fever(s), hemoptysis, lightheadedness, myalgias, nausea, orthopnea, palpitations, paresthesias, polydipsia, polyuria, rash, sense of impending doom, syncope or vomiting Treatment prior to arrival: oxygen Review of Systems Const: Denies: fever(s) or diaphoresis ENMT: Denies: throat pain, ear or mastoid pain, nasal discharge or nasal congestion Card: Denies: chest pain, palpitations, lightheadedness, syncope or orthopnea Resp: Reports: chest congestion; Denies: hemoptysis GI: Denies: abdominal pain, nausea or vomiting : Denies: flank pain, difficulty voiding, dysuria, urinary frequency or urinary urgency Musc: Denies: extremity pain Skin/Breast: Denies: rash or pruritus Neuro: Denies: dizziness Endo: Denies: polyuria or polydipsia PFSH ED PFSH: Medical History (Updated 10/03/21 @ 15:43 by Jason Beaulieu DO) Acute exacerbation of chronic obstructive airways disease Acute hypercapnic respiratory failure Acute on chronic respiratory failure with hypoxemia Anxiety and depression Bilateral pulmonary embolism -on AC with Eliquis Bipolar 2 disorder Chronic pain Chronic post-traumatic stress disorder (PTSD) COPD (chronic obstructive pulmonary disease) Chronic COPD. Chronic smoking. She is aware of the risks of cigarette smoking with COPD. GERD (gastroesophageal reflux disease) Hepatitis C virus infection cured after antiviral drug therapy Hyperlipidemia Hypertension Hypothyroidism Insomnia Non-insulin dependent type 2 diabetes mellitus Obstructive sleep apnea Ovarian cyst Pneumonia Psychiatric care Spinal stenosis Tobacco use disorder, continuous Surgical History H/O section Status post left foot surgery Family History Mother Cancer Breast cancer Social History Smoking and tobacco status: current every day smoker cigarettes Packs smoked per day: 1 Years cigarettes smoked: 30 Quit status (tobacco): considering quitting Second hand smoke exposure: No Alcohol intake: never Counseling given: No Last substance use date: 10/26/19 Household members: children Current occupational status: unemployed History of recent travel: No Physical Exam Const: GENERAL APPEARANCE: cooperative and comfortable ORIENTATION/CONSCIOUSNESS: Yes awake, Yes oriented to person, Yes oriented to place and Yes oriented to time HENMT: COMMON NORMALS: normocephalic, atraumatic and hearing grossly normal bilaterally HEAD & SCALP: normocephalic and atraumatic Resp: AUSCULTATION: crackles and wheezes Cardio: COMMON NORMALS: regular rate, regular rhythm and No murmurs present (Cardio) RATE: regular rate RHYTHM: regular rhythm GI: COMMON NORMALS: Soft to palpation and No hepatosplenomegaly present AUSCULTATION: Yes normoactive bowel sounds PALPATION: Yes Soft to palpation, No Tenderness to palpation present (GI), No Guarding due to palpation present (GI) and Yes No hepatosplenomegaly present Extremity: COMMON NORMALS: normal to inspection, capillary refill normal, no clubbing, cyanosis or edema, no calf tenderness and no pedal edema Neuro: SENSORIUM/ORIENTATION: Yes oriented to person, Yes oriented to place and Yes oriented to time Skin: COMMON NORMALS: no rashes or lesions noted GENERAL SKIN EXAM: no rashes or lesions noted Course Vital Signs: Vital signs: Vital Signs Temperature 98.3 F 10/03/21 13:02 Pulse Rate 71 10/03/21 16:22 Respiratory Rate 20 H 10/03/21 16:22 Blood Pressure 132/80 10/03/21 16:22 Pulse Oximetry 98 10/03/21 16:22 MDM - SOB/Dyspnea MDM Narrative: Medical decision making narrative: Labs imaging and EKG reviewed. Patient having any chest pain is mostly just difficulty with breathing. She has COPD and is chronically on oxygen. We will give her duo nebs to use as needed put on a prednisone burst and taper and a course of doxycycline recheck with primary care doctor within the next week return if has further problems. Lab Data: Labs: Lab Results 10/03/21 10/03/21 10/03/21 01:40 14:03 14:29 WBC 9.0 10^3/uL 10^3/ uL (4.0-10.0) RBC 4.25 10^6/uL 10^6 /uL (4.1-5.3) Hgb 13.0 g/dL g/dL (11.5-15.3) Hct 39.3 % % (37.0-47.0) MCV 92.5 fl fl (81-99) MCH 30.6 pg pg (28.0-34.0) MCHC 33.1 g/dL g/dL (30.0-36.0) RDW 12.8 % % (12.1-15.1) Plt Count 226 10^3/cmm 10^3 /cmm (130-400) MPV 9.9 fL fL (7.4-10.4) Neut % (Auto) 75.4 % % Lymph % (Auto) 13.9 % % [place] % (Auto) 9.5 % % Eos % (Auto) 0.6 % % Baso % (Auto) 0.3 % % Neut # (Auto) 6.77 10^3/uL 10^3 /uL (1.8-7.7) Lymph # (Auto) 1.3 10^3/uL 10^3/ uL (0.8-4.8) [place] # (Auto) 0.9 10^3/uL 10^3/ uL (0.2-0.9) Eos # (Auto) 0.1 10^3/uL 10^3/ uL (0.0-0.8) Baso # (Auto) 0.0 10^3/uL 10^3/ uL (0.0-0.1) Nucleated RBC % (a uto) 0 % % Nucleated RBCs # 0.0 /100WBC /100W BC Specimen Type Arterial Sample Site Brachial, left ABG pH 7.38 (7.35-7.45) ABG pCO2 56.2 mmHg H mmHg (35-45) ABG pO2 111.0 mmHg H mmHg (80.0-100.0) ABG HCO3 33.0 mmol/L H mmo l/L (22-26) ABG O2 Saturation 98.6 ABG Base Excess 6.2 mmol/L H mmol /L (-2.0-2.0) Glenn Test N/a A-a O2 Gradient 6.4 mmHg mmHg (5-10) Hematocrit 40.7 % % (37-47) Hgb O2 Saturation 92.4 % L % (95-100) Carboxyhemoglobin 5.3 %THgb %THgb (0.4-20.1) Methemoglobin 1.0 % % (0.4-1.5) Total Hemoglobin 13.3 g/dL g/dL (12-16) Sodium 132.0 mmol/L mmol /L (131-143) Potassium 4.4 mmol/L mmol/L (3.5-5.0) Glucose 110.0 mg/dL mg/dL (70-115) Ionized Calcium 1.2 mmol/L mmol/L (1.1-1.4) O2 Delivery Device Nc O2 Liters/Min 3.0 % % FiO2 32.0 % % Utility Technician ID Amh Chloride Carbon Dioxide Anion Gap BUN Creatinine GFR Calculation Calculated Osmolal ity Calcium Total Bilirubin AST ALT Alkaline Phosphata se Troponin T Baselin e Total Protein Albumin Globulin Urine Color Yellow (Yellow) Urine Appearance Clear (CLEAR) Urine pH 8 H (5-7) Ur Specific Gravit y 1.005 (1.005-1.030) Urine Protein Neg (Negative) Urine Glucose (UA) Norm (Normal) Urine Ketones Negative (Negative) Urine Blood Neg (Negative) Urine Nitrate Negative (Negative) Urine Bilirubin Neg (Negative) Prot Sulfosalicyli c Acd Negative (Negative) Urine Urobilinogen Norm mg/dL mg/dL (Negative) Ur Leukocyte Eunice ase Negative (Negative) SARS-CoV-2 Ag (Rap id) 10/03/21 10/03/21 10/03/21 14:29 14:29 14:47 WBC RBC Hgb Hct MCV MCH MCHC RDW Plt Count MPV Neut % (Auto) Lymph % (Auto) [place] % (Auto) Eos % (Auto) Baso % (Auto) Neut # (Auto) Lymph # (Auto) [place] # (Auto) Eos # (Auto) Baso # (Auto) Nucleated RBC % (a uto) Nucleated RBCs # Specimen Type Sample Site ABG pH ABG pCO2 ABG pO2 ABG HCO3 ABG O2 Saturation ABG Base Excess Glenn Test A-a O2 Gradient Hematocrit Hgb O2 Saturation Carboxyhemoglobin Methemoglobin Total Hemoglobin Sodium 133 mmol/L L mmol /L (136-145) Potassium 4.5 mmol/L mmol/L (3.5-5.1) Glucose 99 mg/dL mg/dL (65-115) Ionized Calcium O2 Delivery Device O2 Liters/Min FiO2 Utility Technician ID Chloride 96 mmol/L L mmol/ L (98-107) Carbon Dioxide 27 mmol/L mmol/L (22-29) Anion Gap 14.5 (5-19) BUN 3 mg/dL L mg/dL (6-20) Creatinine 0.3 mg/dL L mg/dL (0.5-0.9) GFR Calculation 228.5 mL/min H mL /min (90-130) Calculated Osmolal ity 273 mOsm/kg L mOs m/kg (285-295) Calcium 8.3 mg/dL L mg/dL (8.5-10.5) Total Bilirubin 0.4 mg/dL mg/dL (0.15-1.2) AST 8 U/L U/L (0-32) ALT 8 U/L U/L (0-33) Alkaline Phosphata se 93 IU/L IU/L (35-105) Troponin T Baselin e 10 ng/L ng/L (0-10) Total Protein 6.2 g/dL L g/dL (6.6-8.7) Albumin 3.8 g/dL g/dL (3.5-5.2) Globulin 2.4 g/dL g/dL (1.3-4.6) Urine Color Urine Appearance Urine pH Ur Specific Gravit y Urine Protein Urine Glucose (UA) Urine Ketones Urine Blood Urine Nitrate Urine Bilirubin Prot Sulfosalicyli c Acd Urine Urobilinogen Ur Leukocyte Eunice ase SARS-CoV-2 Ag (Rap id) Negative (Negative) Discharge Plan Discharge Patient Disposition: Home Clinical Impression: Acute exacerbation of chronic obstructive airways disease Condition: Stable Prescriptions: New Medrol (Wilber) 4 mg tablets,dose pack See Rx Instructions .ROUTE .COMPLEX Qty: 21 RF: 0 ipratropium-albuterol 0.5 mg-3 mg(2.5 mg base)/3 mL solution for nebulization 3 ml inhalation Q6H PRN (Reason: shortness of breath or wheezing) Qty: 180 RF: 0 doxycycline hyclate 100 mg capsule 100 mg PO BID 10 Days Qty: 20 RF: 0 No Action Eliquis 5 mg tablet 5 mg PO BID RF: 0 duloxetine [Cymbalta] 60 mg capsule,delayed release(DR/EC) 120 mg PO QAM Qty: 60 RF: 1 lamotrigine 100 mg tablet 100 mg PO BID Qty: 60 RF: 1 modafinil [Provigil] 200 mg tablet 200 mg PO DAILY Qty: 30 RF: 5 montelukast 10 mg tablet 10 mg PO DAILY RF: 0 albuterol sulfate 90 mcg/actuation HFA aerosol inhaler 2 inh INHALATION Q4H PRN (Reason: shortness of breath or wheezing) Qty: 18 RF: 0 metformin 500 mg tablet 500 mg PO BID RF: 0 albuterol sulfate 2.5 mg /3 mL (0.083 %) solution for nebulization 2.5 mg inhalation Q6H PRN (Reason: Shortness Of Breath) RF: 0 omeprazole 40 mg Capsule,Delayed Release(Dr/Ec) 40 mg PO DAILY RF: 0 gabapentin 300 mg Capsule 300 mg PO TID RF: 0 trazodone 50 mg Tablet 50 mg PO BEDTIME PRN (Reason: Sleep) RF: 0 Tylenol Ex Str Rapid Release 500 mg Tablet 1,500 mg PO Q4H PRN (Reason: Pain) RF: 0 ibuprofen 200 mg Tablet 600 mg PO Q4H PRN (Reason: Pain) RF: 0 dicyclomine 10 mg Capsule 10 mg PO QID PRN (Reason: Cramps) RF: 0 Spiriva Respimat 2.5 mcg/actuation Mist 2 puff INHALATION QAM RF: 0 quetiapine 100 mg tablet 100 mg PO BEDTIME RF: 0 levothyroxine 100 mcg tablet 100 mcg PO DAILY RF: 0 Discharge Orders: Discharge ED (Routine); Ordered 10/03/21 Ordered By: Jason Beaulieu Discharge Activity: Limit activity as instructed Patient Instructions: Opioid Safety Activity Restrictions/Additional Instructions: Avoid exertional activities excessive heat and cold recheck with your primary care doctor within the next 3 days return to emergency room if you have any further problems. Coding Level of Care Code ED Branner Machine Tender for Briang Fwd Exam Detailed
--- NOTE | 2021-10-03 13:35 | ECG_ITS ---
[facility] Test Date: 2021-10-03 Pat Name: Tomeka Marshall Department: Room: Gender: Female Housing Management Representative: : 1965 Requested By: Jason Ge Order Number: [id number] Umer MD: Tisha Wright M.D. Measurements Intervals [place] Rate: 69 P: 70 CT: 165 QRS: 82 QRSD: 97 T: 73 QT: 386 QTc: 415 Interpretive Statements SINUS RHYTHM Compared to ECG 08/25/2021 12:05:56 Ventricular premature complex(es) no longer present T-wave abnormality no longer present Possible ischemia no longer present Electronically Signed On 10-04-2021 0:13:48 CORPORATE LAWYER by Tisha Wright M.D. [id number]
--- NOTE | 2021-10-03 13:35 | XR_ITS ---
WS: [id number] XR chest 1V portable [id number] REASON FOR EXAM: dyspnea/cough FINDINGS: The chest is unchanged compared to 08/25/2021. Normal aorta. Cardiomegaly. Chronic interstitial changes in both lower lungs. No definite acute pulmonary parenchymal or pleural abnormality. No significant abnormality of the bony thorax. XR/XR chest 1V portable [id number] IMPRESSION: No acute chest abnormality.
[2021-10-03 14:14] LABS: ABG PCO2 56.2 mmHg (35-45); ABG PH Result 7.38 (7.35-7.45); Alveolar-Arterial Oxygen Gradi 6.4 mmHg (5-10); Arterial Blood Gas Hematocrit 40.7 % (37-47); Base Excess ABG 6.2 mmol/L (-2.0-2.0); Blood Gas Operator Identificat AMH; Blood Gas Sample Site Brachial, left; Blood Gas Sample Type Arterial; Carboxyhemoglobin 5.3 %THgb (0.4-20.1); HGB O2 Sat 92.4 % (95-100); Ionized Calcium Level - ABG 1.2 mmol/L (1.1-1.4); Oxygen Device NC; Oxygen Saturation ABG 98.6; Potassium Level - ABG 4.4 mmol/L (3.5-5.0); Total Hemoglobin 13.3 g/dL (12-16)
[2021-10-03 14:19] LABS: Add Urine Microscopic? NO; Charge for UA Resulting for Rev
[2021-10-03 14:25] LABS: Bilirubin Urine Neg (Negative); Blood Urine Neg (Negative); Glucose Urine UA Norm (Normal); Ketones Urine Negative (Negative); Leukocyte Esterase Urine Negative (Negative); Nitrate Urine Negative (Negative); Protein Urine Neg (Negative); Specific Gravity, Urine 1.005 (1.005-1.030); Sulfosalicylic Acid Urine Negative (Negative); Urine Appearance Clear (CLEAR); Urine Color Yellow (Yellow); Urobilinogen Urine Norm (Negative); pH Urine 8 (5-7)
[2021-10-03 14:36] LABS: Basophils % 0.3 %; Eosinophils # 0.1 10^3/uL (0.0-0.8); Eosinophils % 0.6 %; Hematocrit 39.3 % (37.0-47.0); Lymphocytes # 1.3 10^3/uL (0.8-4.8); Lymphocytes % 13.9 %; Mean Corpuscular HGB Conc 33.1 g/dL (30.0-36.0); Mean Corpuscular Hemoglobin 30.6 pg (28.0-34.0); Mean Corpuscular Volume 92.5 fl (81-99); Mean Platelet Volume 9.9 fL (7.4-10.4); Monocytes # 0.9 10^3/uL (0.2-0.9); Monocytes % 9.5 %; Neutrophils # 6.77 10^3/uL (1.8-7.7); Neutrophils % 75.4 %; Nucleated Red Blood Cells % 0 %; Platelet Count 226 10^3/cmm (130-400); Red Blood Count 4.25 10^6/uL (4.1-5.3); Red Cell Distribution Width 12.8 % (12.1-15.1)
--- NOTE | 2021-10-03 14:46 | PC.PHAR ---
pt brought in medication bottles-pt did have helping [facility] home health but was discharged a month ago pt states she has [facility] waiting for med list to be faxed-medications entered are meds the pt brought in
[2021-10-03 14:59] LABS: Alanine Aminotransferase 8 U/L (0-33); Albumin Level 3.8 g/dL (3.5-5.2); Alkaline Phosphatase 93 IU/L (35-105); Anion Gap 14.5 (5-19); Aspartate Amino Transferase 8 U/L (0-32); Blood Urea Nitrogen 3 mg/dL (6-20); Calcium 8.3 mg/dL (8.5-10.5); Carbon Dioxide 27 mmol/L (22-29); Chloride 96 mmol/L (98-107); Globulin 2.4 g/dL (1.3-4.6); Glomerular Filtration Rate 228.5 mL/min (90-130); Glucose 99 mg/dL (65-115); Osmolality Calculated 273 mOsm/kg (285-295); Potassium 4.5 mmol/L (3.5-5.1); Sodium 133 mmol/L (136-145); Total Bilirubin 0.4 mg/dL (0.15-1.2); Total Protein 6.2 g/dL (6.6-8.7)
[2021-10-03 15:01] LABS: Troponin(5th) Baseline 10 ng/L (0-10)
[2021-10-03 15:14] LABS: SARS Covid-2 Antigen Negative (Negative)
--- NOTE | 2021-10-03 16:20 | PC.NURSE ---
Verbal understanding of Dc orders , take meds as written. If condition gets worse, return to the ER. Otherwise, F/U with PCP/
[2021-10-03 16:22] VITALS: BP 132/80; PULSE 71; RESP 20; O2SAT 98
== END 2021-10-03 16:24 | disposition home or self-care (01) ==
PROVIDERS: Emergency Provider Family Medicine
DX: J44.1 Chronic obstructive pulmonary disease with (acute) exacerbation (principal); Z79.01 Long term (current) use of anticoagulants; Z79.84 Long term (current) use of oral hypoglycemic drugs; Z86.711 Personal history of pulmonary embolism; E78.5 Hyperlipidemia, unspecified; I10 Essential (primary) hypertension; E11.9 Type 2 diabetes mellitus without complications; F17.210 Nicotine dependence, cigarettes, uncomplicated; Z20.822 Contact with and (suspected) exposure to COVID-19
CPT/HCPCS: 36600; 71045; 80051; 80053; 81003; 82330; 82805; 84484; 85025; 87426; 93005; 96372; 99283; J2930

== ENCOUNTER → 2021-10-23 07:57 | Outpatient (BNVA) | payer MEDICARE, MEDICAID, SELFPAY ==
[2020-07-18 17:32] VITALS: BP 115/65; BMI 41.0
== END ==
PROVIDERS: Visit Provider Nurse Practitioner Psychiatric/Mental Health
DX: F31.81 Bipolar II disorder (principal); F43.12 Post-traumatic stress disorder, chronic; J44.9 Chronic obstructive pulmonary disease, unspecified; G89.29 Other chronic pain; G47.00 Insomnia, unspecified; F17.209 Nicotine dependence, unspecified, with unspecified nicotine-induced disorders; G47.33 Obstructive sleep apnea (adult) (pediatric)
CPT/HCPCS: 99214

== ENCOUNTER 2021-10-24 17:19 | Emergency (ER) | payer MEDICARE, MEDICAID, SELFPAY ==
[2020-07-18 17:32] VITALS: BP 115/65; BMI 41.0
[2021-10-24 17:38] VITALS: BP 145/80; PULSE 87; RESP 18; TEMP 37.7; O2SAT 93
--- NOTE | 2021-10-24 18:35 | XRR_ITS ---
PROCEDURE INFORMATION: Exam: XR Chest Exam date and time: 10/24/2021 6:35 PM Age: 56 years old Clinical indication: Shortness of breath; Additional info: SOB TECHNIQUE: Imaging protocol: XR of the chest. Views: 1 view. COMPARISON: CR XR chest 1V portable [id number] 10/03/2021 1:41 PM FINDINGS: Lungs: Hyperinflated lungs with scarring at the right lung base. No consolidation. Pleural spaces: Unremarkable. No pleural effusion. No pneumothorax. Heart/Mediastinum: Similar cardiomegaly and central pulmonary vascular congestion. Bones/joints: Visualized osseous structures are intact. XR/XR chest 1V portable [id number] IMPRESSION: Stable cardiomegaly and central pulmonary vascular congestion.
--- NOTE | 2021-10-24 19:32 | W.ED.COVID ---
HPI - COVID General: Chief Complaint: COVID symptoms Stated Complaint: FLU LIKE SYMPTOMS Time Seen by Provider: 10/24/21 19:32 Triage information: Has fever, cough or shortness of breath. No known COVID + exposure last 14 days History of Present Illness: HPI Narrative: Ms. Marshall is a 56-year-old lady with significant past medical history of hypertension, hyperlipidemia, tobaccoism, COPD with chronic hypoxic respiratory failure on 3 L baseline who presents emergency department due to shortness of breath and cough. Symptom onset was approximately 4 days ago and subacute. She endorses increased fatigue, malaise, arthralgias, myalgias, fevers, productive cough with green sputum. Overall the course of symptoms has been worsening. Intensity is moderate. She has not had to turn up her oxygen. Denies sick contacts. No other specific changes to health, exacerbating, or relieving factors identified. COVID Results: SARS-CoV-2 Antigen (Rapid) Negative (Negative) 10/03/21 14:47 10/03/21 SARS-CoV-2 RNA (RT-PCR) Not detected (NOT DETECTED) 10/02/21 15:04 10/02/21 Nasal/Oral Coronavirus 2019 PCR Negative 07/15/20 09:20 07/15/20 SARS-CoV-2 (PCR) Not detected (NOT DETECT) 10/24/21 20:15 10/24/21 Coronavirus Type 229E (PCR) Not detected (NOT DETECT) 10/24/21 20:15 10/24/21 Review of Systems General: Reports: 10 or more systems reviewed and unremarkable except in HPI and below PFSH ED PFSH: Medical History Acute exacerbation of chronic obstructive airways disease Acute hypercapnic respiratory failure Acute on chronic respiratory failure with hypoxemia Anxiety and depression Bilateral pulmonary embolism -on AC with Eliquis Bipolar 2 disorder Chronic pain Chronic post-traumatic stress disorder (PTSD) COPD (chronic obstructive pulmonary disease) Chronic COPD. Chronic smoking. She is aware of the risks of cigarette smoking with COPD. GERD (gastroesophageal reflux disease) Hepatitis C virus infection cured after antiviral drug therapy Hyperlipidemia Hypertension Hypothyroidism Insomnia Non-insulin dependent type 2 diabetes mellitus Obstructive sleep apnea Ovarian cyst Pneumonia Psychiatric care Spinal stenosis Tobacco use disorder, continuous Surgical History H/O section Status post left foot surgery Family History Mother Cancer Breast cancer Social History Smoking and tobacco status: current every day smoker cigarettes Packs smoked per day: 1 Years cigarettes smoked: 30 Quit status (tobacco): considering quitting Second hand smoke exposure: No Alcohol intake: never Counseling given: No Last substance use date: 10/26/19 Household members: children Current occupational status: unemployed History of recent travel: No Physical Exam Narrative: EXAM NARRATIVE: GENERAL/CONSTITUTIONAL - somewhat ill-appearing. Eyes - PERRL, no conjunctival injection ENMT - Atraumatic external nose and ears. NECK - supple. trachea midline CARDIOVASCULAR - regular rate and rhythm. No peripheral edema RESPIRATORY - coarse and diminished to auscultation bilaterally. Trace end expiratory wheezes. Supplemental oxygen in place. ABDOMEN/GI - Nontender/Nondistended. MSK - Extremities without obvious deformity or tenderness to palpation SKIN - Warm, Dry NEURO - alert and appropriately oriented. Moves all extremities equally. Course ED course: - Patient was seen and evaluated by me at bedside - Patient placed on cardiac monitors, IV access obtained - Initial evaluation notable for exam as above -Symptom treatments ordered - Labs notable for no leukocytosis or other significant hematologic abnormality. Procalcitonin is negative. Metabolic panel with evidence of dehydration. Delta troponin is negative. - Imaging notable for no lobar consolidation, pulmonary vascular congestion is present. - Upon serial reexamination after treatment the patient was improved - Based on patient history, evaluation, labs, and imaging as interpreted the most likely cause of the patient's condition is viral syndrome with COPD exacerbation - The results of ED evaluation were discussed with the patient including prescriptions and/or symptomatic cares (if applicable) including appropriate and responsible use, followup plan, and return precautions. The patient verbalized understanding and felt safe for discharge. - Patient discharged in satisfactory condition. Vital Signs: Vital signs: Vital Signs Temperature 99.9 F H 10/24/21 17:38 Pulse Rate 85 10/24/21 23:56 Respiratory Rate 18 10/24/21 23:56 Blood Pressure 145/80 10/24/21 17:38 Pulse Oximetry 93 10/25/21 04:10 MDM - COVID MDM Narrative: Medical decision making narrative: 56-year-old lady with chronic hypoxic respiratory failure presenting with viral syndrome and shortness of breath. Negative for Covid. No evidence of bacterial infection. Will plan to treat COPD exacerbation. Patient improved with treatment. Satisfactory for discharge. Medical Records: Attestation: I reviewed the patient's medical records. Lab Data: Attestation: I reviewed the patient's lab results. Labs: Lab Results 10/24/21 10/24/21 10/24/21 20:15 20:15 20:15 WBC 9.9 10^3/uL 10^3/ uL (4.0-10.0) RBC 4.12 10^6/uL 10^6 /uL (4.1-5.3) Hgb 12.4 g/dL g/dL (11.5-15.3) Hct 38.7 % % (37.0-47.0) MCV 93.9 fl fl (81-99) MCH 30.1 pg pg (28.0-34.0) MCHC 32.0 g/dL g/dL (30.0-36.0) RDW 13.1 % % (12.1-15.1) Plt Count 225 10^3/cmm 10^3 /cmm (130-400) MPV 10.3 fL fL (7.4-10.4) Neut % (Auto) 69.9 % % Lymph % (Auto) 18.2 % % [place] % (Auto) 10.0 % % Eos % (Auto) 1.2 % % Baso % (Auto) 0.4 % % Neut # (Auto) 6.95 10^3/uL 10^3 /uL (1.8-7.7) Lymph # (Auto) 1.8 10^3/uL 10^3/ uL (0.8-4.8) [place] # (Auto) 1.0 10^3/uL H 10^ 3/uL (0.2-0.9) Eos # (Auto) 0.1 10^3/uL 10^3/ uL (0.0-0.8) Baso # (Auto) 0.0 10^3/uL 10^3/ uL (0.0-0.1) Nucleated RBC % (a uto) 0 % % Nucleated RBCs # 0.0 /100WBC /100W BC Sodium 132 mmol/L L mmol /L (136-145) Potassium 4.1 mmol/L mmol/L (3.5-5.1) Chloride 94 mmol/L L mmol/ L (98-107) Carbon Dioxide 29 mmol/L mmol/L (22-29) Anion Gap 13.1 (5-19) BUN 3 mg/dL L mg/dL (6-20) Creatinine 0.4 mg/dL L mg/dL (0.5-0.9) GFR Calculation 163.9 mL/min H mL /min (90-130) Glucose 90 mg/dL mg/dL (65-115) Calculated Osmolal ity 270 mOsm/kg L mOs m/kg (285-295) Calcium 8.5 mg/dL mg/dL (8.5-10.5) Total Bilirubin 0.3 mg/dL mg/dL (0.15-1.2) AST 9 U/L U/L (0-32) ALT 8 U/L U/L (0-33) Alkaline Phosphata se 84 IU/L IU/L (35-105) C-Reactive Protein 45.0 mg/L H mg/L (0.0-4.9) Total Protein 5.9 g/dL L g/dL (6.6-8.7) Albumin 3.7 g/dL g/dL (3.5-5.2) Globulin 2.2 g/dL g/dL (1.3-4.6) Procalcitonin 0.05 ng/mL ng/mL (0-0.5) Coronavirus 229E ( PCR) Not detected (NOT DETECT) Influenza Type A A g Influenza Type B A g SARS-CoV-2 (PCR) Not detected (NOT DETECT) 10/24/21 23:45 WBC RBC Hgb Hct MCV MCH MCHC RDW Plt Count MPV Neut % (Auto) Lymph % (Auto) [place] % (Auto) Eos % (Auto) Baso % (Auto) Neut # (Auto) Lymph # (Auto) [place] # (Auto) Eos # (Auto) Baso # (Auto) Nucleated RBC % (a uto) Nucleated RBCs # Sodium Potassium Chloride Carbon Dioxide Anion Gap BUN Creatinine GFR Calculation Glucose Calculated Osmolal ity Calcium Total Bilirubin AST ALT Alkaline Phosphata se C-Reactive Protein Total Protein Albumin Globulin Procalcitonin Coronavirus 229E ( PCR) Influenza Type A A g Negative (Negative) Influenza Type B A g Negative (Negative) SARS-CoV-2 (PCR) COVID Results: SARS-CoV-2 Antigen (Rapid) Negative (Negative) 10/03/21 14:47 10/03/21 SARS-CoV-2 RNA (RT-PCR) Not detected (NOT DETECTED) 10/02/21 15:04 10/02/21 Nasal/Oral Coronavirus 2019 PCR Negative 07/15/20 09:20 07/15/20 SARS-CoV-2 (PCR) Not detected (NOT DETECT) 10/24/21 20:15 10/24/21 Coronavirus Type 229E (PCR) Not detected (NOT DETECT) 10/24/21 20:15 10/24/21 Discharge Plan Discharge Patient Disposition: Home Clinical Impression: Acute exacerbation of chronic obstructive pulmonary disease, Acute viral syndrome Condition: Stable Prescriptions: New doxycycline hyclate 100 mg capsule 100 mg PO BID 7 Days Qty: 14 RF: 0 albuterol sulfate 90 mcg/actuation HFA aerosol inhaler 3 inh inhalation Q4H Qty: 8.5 RF: 0 No Action lamotrigine 100 mg tablet 100 mg PO BID Qty: 60 RF: 2 duloxetine [Cymbalta] 60 mg capsule,delayed release(DR/EC) 120 mg PO QAM Qty: 60 RF: 2 quetiapine 150 mg tablet extended release 24 hr 150 mg PO .q hs Qty: 30 RF: 0 Eliquis 5 mg tablet 5 mg PO BID RF: 0 modafinil [Provigil] 200 mg tablet 200 mg PO DAILY Qty: 30 RF: 5 montelukast 10 mg tablet 10 mg PO DAILY RF: 0 albuterol sulfate 90 mcg/actuation HFA aerosol inhaler 2 inh INHALATION Q4H PRN (Reason: shortness of breath or wheezing) Qty: 18 RF: 0 metformin 500 mg tablet 500 mg PO BID RF: 0 albuterol sulfate 2.5 mg /3 mL (0.083 %) solution for nebulization 2.5 mg inhalation Q6H PRN (Reason: Shortness Of Breath) RF: 0 omeprazole 40 mg Capsule,Delayed Release(Dr/Ec) 40 mg PO DAILY RF: 0 gabapentin 300 mg Capsule 300 mg PO TID RF: 0 trazodone 50 mg Tablet 50 mg PO BEDTIME PRN (Reason: Sleep) RF: 0 Tylenol Ex Str Rapid Release 500 mg Tablet 1,500 mg PO Q4H PRN (Reason: Pain) RF: 0 ibuprofen 200 mg Tablet 600 mg PO Q4H PRN (Reason: Pain) RF: 0 dicyclomine 10 mg Capsule 10 mg PO QID PRN (Reason: Cramps) RF: 0 Spiriva Respimat 2.5 mcg/actuation Mist 2 puff INHALATION QAM RF: 0 Medrol (Wilber) 4 mg tablets,dose pack See Rx Instructions .ROUTE .COMPLEX Qty: 21 RF: 0 ipratropium-albuterol 0.5 mg-3 mg(2.5 mg base)/3 mL solution for nebulization 3 ml inhalation Q6H PRN (Reason: shortness of breath or wheezing) Qty: 180 RF: 0 levothyroxine 100 mcg tablet 100 mcg PO DAILY RF: 0 Discharge Orders: Discharge ED (Routine); Ordered 10/29/21 Ordered By: Wes Breaux Discharge Diet: Usual diet Discharge Activity: Resume usual activity Patient Instructions: COPD (Chronic Obstructive Pulmonary Disease) (ED), Viral Syndrome (ED) Activity Restrictions/Additional Instructions: Thank you for visiting the emergency department. You were seen and evaluated for cough, nausea, fever. The exact cause of your symptoms is unclear. You were negative for Covid. It is likely that you have a viral syndrome causing COPD exacerbation. Your COPD exacerbation will be treated. Please follow-up with your primary care provider. Please return to the emergency department for worsening symptoms or anything else that you are concerned about and feel needs emergency department evaluation. Coding Level of Care Code ED Financial Planning Consultant for Parmjit Colin
[2021-10-24] MEDS: ipratropium-albuterol 3 mL Neb INHALATION (20:20)
[2021-10-24 20:33] LABS: Basophils % 0.4 %; Eosinophils # 0.1 10^3/uL (0.0-0.8); Eosinophils % 1.2 %; Hematocrit 38.7 % (37.0-47.0); Hemoglobin 12.4 g/dL (11.5-15.3); Lymphocytes # 1.8 10^3/uL (0.8-4.8); Lymphocytes % 18.2 %; Mean Corpuscular Hemoglobin 30.1 pg (28.0-34.0); Mean Corpuscular Volume 93.9 fl (81-99); Mean Platelet Volume 10.3 fL (7.4-10.4); Neutrophils # 6.95 10^3/uL (1.8-7.7); Neutrophils % 69.9 %; Nucleated Red Blood Cells % 0 %; Platelet Count 225 10^3/cmm (130-400); Red Blood Count 4.12 10^6/uL (4.1-5.3); Red Cell Distribution Width 13.1 % (12.1-15.1); White Blood Count 9.9 10^3/uL (4.0-10.0)
[2021-10-24] MEDS: ketorolac 30 mg/mL INJ 15 MG IVP (20:33)
[2021-10-24] MEDS: sodium chloride 0.9% 500 ML 999 ML IV (20:34)
[2021-10-24 20:52] LABS: Alanine Aminotransferase 8 U/L (0-33); Albumin Level 3.7 g/dL (3.5-5.2); Alkaline Phosphatase 84 IU/L (35-105); Anion Gap 13.1 (5-19); Aspartate Amino Transferase 9 U/L (0-32); Blood Urea Nitrogen 3 mg/dL (6-20); Calcium 8.5 mg/dL (8.5-10.5); Carbon Dioxide 29 mmol/L (22-29); Chloride 94 mmol/L (98-107); Globulin 2.2 g/dL (1.3-4.6); Glomerular Filtration Rate 163.9 mL/min (90-130); Glucose 90 mg/dL (65-115); Osmolality Calculated 270 mOsm/kg (285-295); Potassium 4.1 mmol/L (3.5-5.1); Sodium 132 mmol/L (136-145); Total Bilirubin 0.3 mg/dL (0.15-1.2); Total Protein 5.9 g/dL (6.6-8.7)
[2021-10-24 20:59] LABS: Procalcitonin 0.05 ng/mL (0-0.5)
[2021-10-24 22:21] LABS: Adenovirus Not Detected (NOT DETECT); Chlamydia Pneumoniae Not Detected (NOT DETECT); Coronavirus 229E,HKU1,NL63,OC4 Not Detected (NOT DETECT); Human Metapneumovirus Not Detected (NOT DETECT); Human Rhinovirus/Enterovirus Not Detected (NOT DETECT); Influenza A Not Detected (NOT DETECT); Influenza A H1 Not Detected (NOT DETECT); Influenza A H1-2009 Not Detected (NOT DETECT); Influenza A H3 Not Detected (NOT DETECT); Influenza B Not Detected (NOT DETECT); Mycoplasma Pneumoniae Not Detected (NOT DETECT); Parainfluenza Virus Type 1 Not Detected (NOT DETECT); Parainfluenza Virus Type 2 Not Detected (NOT DETECT); Parainfluenza Virus Type 3 Not Detected (NOT DETECT); Parainfluenza Virus Type 4 Not Detected (NOT DETECT); Respiratory Syncytial Virus A Not Detected (NOT DETECT); Respiratory Syncytial Virus B Not Detected (NOT DETECT); SARS-COV-2 Not Detected (NOT DETECT)
[2021-10-24] MEDS: doxycycline 100 mg Tablet PO (22:45)
[2021-10-24] MEDS: sodium chloride 0.9% 1,000 ML 999 ML IV (22:46)
[2021-10-24 23:56] VITALS: PULSE 85; RESP 18; O2SAT 93
[2021-10-25 00:15] LABS: Influenza A by IFA Negative (Negative); Influenza B by IFA Negative (Negative)
[2021-10-25 04:10] VITALS: O2SAT 93
== END 2021-10-25 00:20 | disposition home or self-care (01) ==
PROVIDERS: Emergency Provider Emergency Medicine
DX: J44.1 Chronic obstructive pulmonary disease with (acute) exacerbation (principal); B34.9 Viral infection, unspecified; Z79.01 Long term (current) use of anticoagulants; Z79.84 Long term (current) use of oral hypoglycemic drugs; Z20.822 Contact with and (suspected) exposure to COVID-19; Z86.711 Personal history of pulmonary embolism; E78.5 Hyperlipidemia, unspecified; I10 Essential (primary) hypertension; E11.9 Type 2 diabetes mellitus without complications; Z86.19 Personal history of other infectious and parasitic diseases; F17.210 Nicotine dependence, cigarettes, uncomplicated
CPT/HCPCS: 71045; 80053; 84145; 85025; 86140; 87635; 87804; 94640; 96361; 96374; 96375; 99284; J1885; J2930; J7030; J7040

== ENCOUNTER → 2021-10-31 15:30 | Outpatient (BNVA) | payer MEDICARE, MEDICAID, SELFPAY ==
[2020-07-18 17:32] VITALS: BP 115/65; BMI 41.0
== END ==
PROVIDERS: Visit Provider Surgery
DX: Z11.52 Encounter for screening for COVID-19 (principal)
CPT/HCPCS: 87635

== ENCOUNTER → 2021-11-06 08:14 | Outpatient (BNVA) | payer MEDICARE, MEDICAID, SELFPAY ==
[2020-07-18 17:32] VITALS: BP 115/65; BMI 41.0
== END ==
PROVIDERS: PCP Nurse Practitioner Family; Visit Provider Nurse Practitioner Psychiatric/Mental Health
DX: F31.81 Bipolar II disorder (principal); F43.12 Post-traumatic stress disorder, chronic; J44.9 Chronic obstructive pulmonary disease, unspecified; G89.29 Other chronic pain; G47.00 Insomnia, unspecified; F17.209 Nicotine dependence, unspecified, with unspecified nicotine-induced disorders; G47.33 Obstructive sleep apnea (adult) (pediatric)
CPT/HCPCS: 99213

== ENCOUNTER 2021-11-16 10:31 | Emergency (ER) | payer MEDICARE, MEDICAID, SELFPAY ==
[2020-07-18 17:32] VITALS: BP 115/65; BMI 41.0
[2021-11-16 10:48] VITALS: BP 138/80; PULSE 87; RESP 22; TEMP 37.1; O2SAT 87; BMI 37.1
--- NOTE | 2021-11-16 10:49 | XRR_ITS ---
PROCEDURE INFORMATION: Exam: XR Chest Exam date and time: 11/16/2021 10:49 AM Age: 56 years old Clinical indication: Pain; Angina pectoris; Additional info: Chest pain TECHNIQUE: Imaging protocol: XR of the chest. Views: 1 view. Total images: 1 COMPARISON: CR (CHEST, ) 10/24/2021 7:43 PM FINDINGS: Lungs: Trace bibasilar atelectasis or scar. Coarse chronic pulmonary markings. Pleural spaces: Unremarkable. No pleural effusion. No pneumothorax. Heart/Mediastinum: Heart size is stable when compared to the prior exam. Bones/joints: Osseous structures are unchanged from the prior exam. XR/XR chest 1V portable [id number] IMPRESSION: 1. Trace bibasilar atelectasis or scar. 2. Coarse chronic pulmonary markings.
--- NOTE | 2021-11-16 10:49 | ECG_ITS ---
[facility] Test Date: 2021-11-16 Pat Name: Tomeka Marshall Department: Room: Gender: Female Filler In: : 1965 Requested By: Susana Singh Order Number: [id number] Owusu MD: Eliza Paul M.D. Measurements Intervals [place] Rate: 81 P: 62 PA: 170 QRS: 76 QRSD: 96 T: 78 QT: 346 QTc: 402 Interpretive Statements SINUS RHYTHM Compared to ECG 10/03/2021 13:18:35 No significant changes Electronically Signed On 11-16-2021 21:58:39 CUSTOMER SERVICE SUPERVISOR by Eilza Paul M.D. [id number]
[2021-11-16 12:10] LABS: Basophils # 0.1 10^3/uL (0.0-0.1); Basophils % 0.8 %; Eosinophils # 0.1 10^3/uL (0.0-0.8); Eosinophils % 1.5 %; Lymphocytes # 1.5 10^3/uL (0.8-4.8); Lymphocytes % 21.9 %; Mean Corpuscular HGB Conc 31.7 g/dL (30.0-36.0); Mean Corpuscular Hemoglobin 30.2 pg (28.0-34.0); Mean Corpuscular Volume 95.3 fl (81-99); Mean Platelet Volume 9.9 fL (7.4-10.4); Monocytes # 0.6 10^3/uL (0.2-0.9); Monocytes % 8.4 %; Neutrophils # 4.47 10^3/uL (1.8-7.7); Neutrophils % 67.1 %; Nucleated Red Blood Cells % 0 %; Platelet Count 220 10^3/cmm (130-400); Red Cell Distribution Width 13.2 % (12.1-15.1); White Blood Count 6.7 10^3/uL (4.0-10.0)
[2021-11-16 12:52] LABS: Alanine Aminotransferase 11 U/L (0-33); Albumin Level 3.9 g/dL (3.5-5.2); Alkaline Phosphatase 102 IU/L (35-105); Aspartate Amino Transferase 11 U/L (0-32); Blood Urea Nitrogen 5 mg/dL (6-20); Carbon Dioxide 28 mmol/L (22-29); Chloride 95 mmol/L (98-107); Globulin 2.6 g/dL (1.3-4.6); Glomerular Filtration Rate 163.9 mL/min (90-130); Glucose 115 mg/dL (65-115); Osmolality Calculated 280 mOsm/kg (285-295); Sodium 136 mmol/L (136-145); Total Bilirubin 0.2 mg/dL (0.15-1.2); Total Protein 6.5 g/dL (6.6-8.7); Troponin(5th) Baseline 8 ng/L (0-10)
[2021-11-16 14:12] LABS: D Dimer 0.98 ug/mIFEU (0-0.59)
--- NOTE | 2021-11-16 14:23 | CTR_ITS ---
PROCEDURE INFORMATION: Exam: CTA Chest With Contrast Exam date and time: 11/16/2021 2:23 PM Age: 56 years old Clinical indication: Sternal or substernal pain; Patient HX: C/O c/p w hypoxia and elev d-domer; Additional info: Hypoxia and elevated d-dimer TECHNIQUE: Imaging protocol: Computed tomographic angiography of the chest with contrast. 3D rendering (Not supervised by radiologist): MIP and/or 3D reconstructed images were created by the technologist. Radiation optimization: All CT scans at this facility use at least one of these dose optimization techniques: automated exposure control; mA and/or kV adjustment per patient size (includes targeted exams where dose is matched to clinical indication); or iterative reconstruction. Contrast material: OMNI 350; Contrast volume: 72 ml; Contrast route: INTRAVENOUS (IV); COMPARISON: 1. CT angio chest PE protcl [id number] 10/26/2019 3:14 PM 2. CR (CHEST, ) 10/24/2021 7:43 PM 3. CR XR chest 1V portable [id number] 11/16/2021 11:31 AM RADIATION DOSE METRICS: Total DLP (mGy-cm): 641.8 FINDINGS: Pulmonary arteries: The pulmonary arteries are adequately opacified for evaluation to the subsegmental level. There is no filling defect to suggest embolism. Aorta: There is mild aortic atherosclerotic disease. Lungs: There is mild bilateral lung disease characterized by patchy ill-defined ground-glass opacity and consolidation. There is a 2.4 x 1.5 cm nodule in the left lung apex visible on series 3, image 13. There is mild upper lung predominant centrilobular emphysema. There is a 10 mm noncalcified nodule in the left upper lobe on axial series 2, image 150. Pleural spaces: There is no pleural effusion or pneumothorax. Heart: There is mild cardiac enlargement. There is no pericardial effusion. There is mild coronary artery calcification. Lymph nodes: Prominent upper mediastinal and bilateral hilar lymph nodes of uncertain significance. Intraperitoneal space: Visible structures in the upper abdomen are unremarkable. Bones/joints: Age-indeterminate mild to moderate T11, T12 and L1 compression fractures. Soft tissues: The extrathoracic soft tissues are unremarkable. CT/CT angio chest PE protcl [id number] IMPRESSION: 1. Mild bilateral lung disease. Findings are decreased since 10/24/2021. Indeterminate imaging features of COVID-19 pneumonia. The pulmonary imaging features present here can be seen with COVID-19 pneumonia, though are nonspecific and can occur with a variety of infectious and noninfectious processes. 2. No pulmonary embolism. 3. 2.4 cm left apical pulmonary nodule versus focal consolidation. 4. 10 mm left upper lobe pulmonary nodule. For patients at low risk (minimal or absent history of smoking and of other known risk factors), recommend CT Chest at 3-6 months, then consider CT Chest at 18-24 months. For patients at high risk (history of smoking or of other known risk factors), recommend CT Chest at 3-6 months, then CT Chest at 18-24 months. (Reference: Kelsie) 5. Incidental findings above. REFERENCES: Kelsie Bueno, et al. Guidelines for Management of Incidental Pulmonary Nodules Detected on CT Images: From the Fleischner Society 2017. Radiology. 2017;284(1):228-243.
--- NOTE | 2021-11-16 16:55 | W.ED.CHESTPA ---
HPI - Chest Pain General: Chief Complaint: Chest Pain Stated Complaint: PCP SENT FOR CP Time Seen by Provider: 11/16/21 16:51 Source: patient Mode of arrival: ambulatory Limitations: no limitations History of Present Illness: This patient comes to the emergency department today because she had chest pain today. She is also had a sore throat over the past couple of days as well. 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 Her 18-year-old daughter does have scarlet fever according to her with positive strep. She states the chest pain is can come and goes and seems to be worse with deep breaths. She has had a cough but this is a chronic cough for her. She has COPD and uses 3 L of oxygen. She is also had a history of prior pulmonary embolus and takes Eliquis on a regular basis. She denies any nausea vomiting or diarrhea. She denies any leg swelling etc. She has been taking her medications faithfully. MD complaint: chest pain Pain location: substernal Quality: aching Exacerbating factors: inspiration, palpation and movement Associated symptoms: Reports no associated symptoms; Deny abdominal pain, dyspnea, fever(s), nausea, palpitations or vomiting Risk Factors: Pulmonary embolism risk factors: history of pulmonary embolism Review of Systems Const: Reports: chills; Denies: fever(s), body aches or change in appetite Eyes: Denies: change in vision ENMT: Reports: throat pain and odynophagia Card: Reports: chest pain; Denies: palpitations Resp: Reports: non-productive cough and pain on inspiration; Denies: dyspnea GI: Denies: abdominal pain, nausea or vomiting : Denies: flank pain, difficulty voiding, dysuria or urinary frequency Musc: Denies: neck pain, back pain, extremity pain or extremity swelling Skin/Breast: Denies: rash, pruritus or erythema Neuro: Denies: headache(s), numbness in extremities or weakness in extremities Endo: Denies: polyuria or polydipsia Memo/Lymph: Denies: easy bruising or easy bleeding PFS ED PFSH: Medical History Acute exacerbation of chronic obstructive airways disease Acute hypercapnic respiratory failure Acute on chronic respiratory failure with hypoxemia Anxiety and depression Bilateral pulmonary embolism -on AC with Eliquis Bipolar 2 disorder Chronic pain Chronic post-traumatic stress disorder (PTSD) COPD (chronic obstructive pulmonary disease) Chronic COPD. Chronic smoking. She is aware of the risks of cigarette smoking with COPD. GERD (gastroesophageal reflux disease) Hepatitis C virus infection cured after antiviral drug therapy Hyperlipidemia Hypertension Hypothyroidism Insomnia Non-insulin dependent type 2 diabetes mellitus Obstructive sleep apnea Ovarian cyst Pneumonia Psychiatric care Spinal stenosis Tobacco use disorder, continuous Surgical History H/O section Status post left foot surgery Family History Mother Cancer Breast cancer Social History Smoking and tobacco status: current every day smoker cigarettes Packs smoked per day: 1 Years cigarettes smoked: 30 Quit status (tobacco): considering quitting Second hand smoke exposure: No Alcohol intake: never Counseling given: No Last substance use date: 10/26/19 Household members: children Current occupational status: unemployed History of recent travel: No Physical Exam Narrative: EXAM NARRATIVE: She is comfortable and talks in a normal voice. She answers questions in a goal-directed fashion. Const: COMMON NORMALS: no acute distress and patient oriented x3 HENMT: COMMON NORMALS: normocephalic and Normal external nose present HEAD & SCALP: normocephalic FACE & SINUS: normal facial exam; no sinus tenderness NOSE: Normal external nose present THROAT: uvula midline OTHER: She has erythematous oral pharynx without any masses. Uvula is midline. No subungual thickening, tenderness, mass etc. Eye: COMMON NORMALS: Equal, round and reactive pupils present and EOMs intact bilaterally PUPIL: Yes Equal, round and reactive pupils present Neck/C-Spine: COMMON NORMALS: full ROM, no lymphadenopathy and No carotid bruits Chest: COMMONS NORMALS: normal inspection of the chest CHEST: Yes tenderness (He has tenderness to palpation along the anterior chest at the costochondra) Resp: COMMON NORMALS: normal respiratory effort and No retractions AUSCULTATION: rhonchi (Few scattered rhonchi.) Cardio: COMMON NORMALS: regular rate, regular rhythm, No murmurs present (Cardio) and Peripheral pulses 2+ throughout RATE: regular rate RHYTHM: regular rhythm PERIPHERAL PULSES: Peripheral pulses 2+ throughout GI: COMMON NORMALS: Normal to inspection, nondistended, normoactive bowel sounds present and Soft to palpation PALPATION: Yes Soft to palpation : COMMON NORMALS: Yes no CVA tenderness BLADDER/KIDNEY EXAM: Yes no CVA tenderness Back/Pelvis: COMMON NORMALS: no CVA tenderness, thoracic and lumbar spine normal to inspection, no thoracic nor lumbar tenderness and thoraco-lumbar ROM normal Extremity: COMMON NORMALS: normal to inspection, full ROM, capillary refill normal, no clubbing, cyanosis or edema, no calf tenderness and no pedal edema Neuro: COMMON NORMALS: patient oriented x3, moves all extremities, no focal motor deficits and no sensory deficits noted SPEECH: speech normal Course ED course: Patient's work-up is initially ordered from triage without the ability for an intake and evaluation by this physician. The patient's current presentation does not strongly suggest thromboembolic event, ACS etc. However will await on CTA which was ordered based upon elevated D-dimer prior to sufficient clinical information being available. Reevaluation(s): Reevaluation #1: Patient's current presentation does not suggest ACS, pneumonia, pulmonary embolus etc. After her protracted evaluation does not appear that she has any acute ongoing emergency medical condition other than pharyngitis. She has a daughter with positive group B strep so therefore we will go ahead and begin empiric treatment with amoxicillin next 10 days. We will also give her a single dose of dexamethasone at this time to help with subjective symptoms. Discussed expected course and return precautions. Stable for discharge. Vital Signs: Vital signs: Vital Signs Temperature 98.7 F 11/16/21 10:48 Pulse Rate 88 11/16/21 20:29 Respiratory Rate 18 11/16/21 20:22 Blood Pressure 149/107 11/16/21 18:50 Pulse Oximetry 97 11/16/21 20:22 MDM - Chest Pain Medical Decision Making Extensive work-up in the emergency department does not reveal any evidence of pulmonary embolus, ACS or other worrisome etiology to chest pain. Much of her chest pain symptoms are related to her chronic obstructive pulmonary disease and are reproducible with palpation and exacerbating movements. Again serial troponins are reassuring. Stable for discharge with treatment for acute pharyngitis presumably group B strep. Medical Records I reviewed the patient's medical records. Lab Data I reviewed the patient's lab results. : 11/16/21 11:54 11/16/21 11:54 Radiology Impressions Chest X-Ray 11/16/21 10:49 IMPRESSION: 1. Trace bibasilar atelectasis or scar. 2. Coarse chronic pulmonary markings. Chest CTA 11/16/21 14:23 IMPRESSION: 1. Mild bilateral lung disease. Findings are decreased since 10/24/2021. Indeterminate imaging features of COVID-19 pneumonia. The pulmonary imaging features present here can be seen with COVID-19 pneumonia, though are nonspecific and can occur with a variety of infectious and noninfectious processes. 2. No pulmonary embolism. 3. 2.4 cm left apical pulmonary nodule versus focal consolidation. 4. 10 mm left upper lobe pulmonary nodule. For patients at low risk (minimal or absent history of smoking and of other known risk factors), recommend CT Chest at 3-6 months, then consider CT Chest at 18-24 months. For patients at high risk (history of smoking or of other known risk factors), recommend CT Chest at 3-6 months, then CT Chest at 18-24 months. (Reference: Kelsie) 5. Incidental findings above. REFERENCES: Kelsie Bueno, et al. Guidelines for Management of Incidental Pulmonary Nodules Detected on CT Images: From the Fleischner Society 2017. Radiology. 2017;284(1):228-243. Laboratory Results WBC 6.7 10^3/uL (4.0-10.0) 11/16/21 11:54 RBC 4.30 10^6/uL (4.1-5.3) 11/16/21 11:54 Hgb 13.0 g/dL (11.5-15.3) 11/16/21 11:54 Hct 41.0 % (37.0-47.0) 11/16/21 11:54 MCV 95.3 fl (81-99) 11/16/21 11:54 MCH 30.2 pg (28.0-34.0) 11/16/21 11:54 MCHC 31.7 g/dL (30.0-36.0) 11/16/21 11:54 RDW 13.2 % (12.1-15.1) 11/16/21 11:54 Plt Count 220 10^3/cmm (130-400) 11/16/21 11:54 MPV 9.9 fL (7.4-10.4) 11/16/21 11:54 Neut % (Auto) 67.1 % 11/16/21 11:54 Lymph % (Auto) 21.9 % 11/16/21 11:54 [place] % (Auto) 8.4 % 11/16/21 11:54 Eos % (Auto) 1.5 % 11/16/21 11:54 Baso % (Auto) 0.8 % 11/16/21 11:54 Neut # (Auto) 4.47 10^3/uL (1.8-7.7) 11/16/21 11:54 Lymph # (Auto) 1.5 10^3/uL (0.8-4.8) 11/16/21 11:54 [place] # (Auto) 0.6 10^3/uL (0.2-0.9) 11/16/21 11:54 Eos # (Auto) 0.1 10^3/uL (0.0-0.8) 11/16/21 11:54 Baso # (Auto) 0.1 10^3/uL (0.0-0.1) 11/16/21 11:54 Nucleated RBC % (auto) 0 % 11/16/21 11:54 Nucleated RBCs # 0.0 /100WBC 11/16/21 11:54 D-Dimer 0.98 ug/mIFEU (0-0.59) H 11/16/21 11:54 Sodium 136 mmol/L (136-145) 11/16/21 11:54 Potassium 4.0 mmol/L (3.5-5.1) 11/16/21 11:54 Chloride 95 mmol/L (98-107) L 11/16/21 11:54 Carbon Dioxide 28 mmol/L (22-29) 11/16/21 11:54 Anion Gap 17.0 (5-19) 11/16/21 11:54 BUN 5 mg/dL (6-20) L 11/16/21 11:54 Creatinine 0.4 mg/dL (0.5-0.9) L 11/16/21 11:54 GFR Calculation 163.9 mL/min (90-130) H 11/16/21 11:54 Glucose 115 mg/dL (65-115) 11/16/21 11:54 Calculated Osmolality 280 mOsm/kg (285-295) L 11/16/21 11:54 Calcium 10.0 mg/dL (8.5-10.5) 11/16/21 11:54 Total Bilirubin 0.2 mg/dL (0.15-1.2) 11/16/21 11:54 AST 11 U/L (0-32) 11/16/21 11:54 ALT 11 U/L (0-33) 11/16/21 11:54 Alkaline Phosphatase 102 IU/L (35-105) 11/16/21 11:54 Troponin T Baseline 8 ng/L (0-10) 11/16/21 11:54 Troponin T 120 Minute 12.90 ng/L (0-10) H 11/16/21 13:50 Delta Troponin T 4.90 ABS# (0-10) 11/16/21 13:50 Troponin T Hi Sens 6Hr 8.40 ng/L (0-10) 11/16/21 19:45 Total Protein 6.5 g/dL (6.6-8.7) L 11/16/21 11:54 Albumin 3.9 g/dL (3.5-5.2) 11/16/21 11:54 Globulin 2.6 g/dL (1.3-4.6) 11/16/21 11:54 Imaging Data CTA Chest: Radiologist's impression: Negative for evidence of pulmonary embolus other incidental findings noted see full report. EKG Data EKG 1: I personally reviewed and interpreted this EKG as follows: Interpretation: Normal sinus rhythm 81 bpm normal intervals normal axis. No acute ST-T wave changes noted. Discharge Plan Discharge Patient Disposition: Home Clinical Impression: Acute pharyngitis, Tobacco use disorder, continuous, COPD (chronic obstructive pulmonary disease), Anterior chest wall pain Condition: Stable Prescriptions: New amoxicillin 500 mg tablet 500 mg PO BID 10 Days Qty: 20 0RF No Action lamotrigine 100 mg tablet 100 mg PO BID Qty: 60 2RF Rx Instructions: Take one tablet by mouth every morning and at bedtime duloxetine [Cymbalta] 60 mg capsule,delayed release(DR/EC) 120 mg PO QAM Qty: 60 2RF Rx Instructions: Take two capsules by mouth every morning Eliquis 5 mg tablet 5 mg PO BID 0RF modafinil [Provigil] 200 mg tablet 200 mg PO DAILY Qty: 30 5RF montelukast 10 mg tablet 10 mg PO DAILY 0RF albuterol sulfate 90 mcg/actuation HFA aerosol inhaler 2 inh INHALATION Q4H PRN (Reason: shortness of breath or wheezing) Qty: 18 0RF metformin 500 mg tablet 500 mg PO BID 0RF albuterol sulfate 2.5 mg /3 mL (0.083 %) solution for nebulization 2.5 mg inhalation Q6H PRN (Reason: Shortness Of Breath) 0RF omeprazole 40 mg Capsule,Delayed Release(Dr/Ec) 40 mg PO DAILY 0RF gabapentin 300 mg Capsule 300 mg PO TID 0RF acetaminophen [Tylenol Ex Str Rapid Release] 500 mg Tablet 1,500 mg PO Q4H PRN (Reason: Pain) 0RF ibuprofen 200 mg Tablet 600 mg PO Q4H PRN (Reason: Pain) 0RF dicyclomine 10 mg Capsule 10 mg PO QID PRN (Reason: Cramps) 0RF Spiriva Respimat 2.5 mcg/actuation Mist 2 puff INHALATION QAM 0RF ipratropium-albuterol 0.5 mg-3 mg(2.5 mg base)/3 mL solution for nebulization 3 ml inhalation Q6H PRN (Reason: shortness of breath or wheezing) Qty: 180 0RF levothyroxine 100 mcg tablet 100 mcg PO DAILY 0RF quetiapine 150 mg tablet extended release 24 hr 150 mg PO BEDTIME 0RF Rx Instructions: Take one tablet daily by mouth at bedtime Discharge Orders: Discharge ED (Routine); Ordered 11/16/21 Ordered By: Greg Naranjo Referrals: Tayler Lan FNP [Primary Care Provider] - Discharge Diet: Advance as tolerated and Usual diet Discharge Activity: Resume usual activity Patient Instructions: Opioid Safety Activity Restrictions/Additional Instructions: We have provided antibiotics to take for the next 10 days for your sore throat. Make sure you drink at least 4 to 6 glasses of water a day. Stop smoking cigarettes. Continue all your other your usual medications and your metered-dose inhaler. If your symptoms persist or worsen you are welcome to return to the emergency department. Coding Level of Care Code ED Dining Services Director for Parmjit Fwjuanjo Exam Comprehensive
[2021-11-16] MEDS: iohexol 350 mg/mL 100 mL Btl IV (17:08)
[2021-11-16 18:50] VITALS: BP 149/107; PULSE 83; RESP 18; O2SAT 92
[2021-11-16 20:22] VITALS: PULSE 84; RESP 18; O2SAT 97
[2021-11-16] MEDS: ipratropium-albuterol 3 mL Neb INHALATION (20:22)
[2021-11-16 20:29] VITALS: PULSE 88
[2021-11-16] MEDS: amoxicillin 500 mg Capsule PO (21:06)
[2021-11-16] MEDS: dexamethasone 10 mg/mL INJ IVP (21:08)
[2021-11-16 21:12] VITALS: BP 173/105; PULSE 90; RESP 22; O2SAT 92
== END 2021-11-16 21:13 | disposition home or self-care (01) ==
PROVIDERS: Physician Assistant; Emergency Provider Emergency Medicine; PCP Nurse Practitioner Family
DX: R07.89 Other chest pain (principal); J44.9 Chronic obstructive pulmonary disease, unspecified; J02.9 Acute pharyngitis, unspecified; Z79.01 Long term (current) use of anticoagulants; F17.210 Nicotine dependence, cigarettes, uncomplicated; Z86.711 Personal history of pulmonary embolism; Z86.19 Personal history of other infectious and parasitic diseases; E78.5 Hyperlipidemia, unspecified; I10 Essential (primary) hypertension; E11.9 Type 2 diabetes mellitus without complications
CPT/HCPCS: 71045; 71275; 80053; 84484; 85025; 85378; 93005; 94640; 96374; 99283; J1100; Q9967

== ENCOUNTER → 2022-01-01 08:06 | Outpatient (BNVA) | payer MEDICARE, MEDICAID, SELFPAY ==
[2020-07-18 17:32] VITALS: BP 115/65; BMI 41.0
== END ==
PROVIDERS: PCP Nurse Practitioner Family; Visit Provider Nurse Practitioner Psychiatric/Mental Health
DX: F31.81 Bipolar II disorder (principal); F43.12 Post-traumatic stress disorder, chronic; J44.9 Chronic obstructive pulmonary disease, unspecified; G89.29 Other chronic pain; G47.00 Insomnia, unspecified; F17.209 Nicotine dependence, unspecified, with unspecified nicotine-induced disorders; G47.33 Obstructive sleep apnea (adult) (pediatric)
CPT/HCPCS: 99214

== ENCOUNTER → 2022-01-04 08:12 | Outpatient (BNVA) | payer MEDICARE, MEDICAID, SELFPAY ==
[2020-07-18 17:32] VITALS: BP 115/65; BMI 41.0
== END ==
PROVIDERS: PCP Nurse Practitioner Family; Visit Provider Internal Medicine Pulmonary Disease
DX: G47.33 Obstructive sleep apnea (adult) (pediatric) (principal); J96.21 Acute and chronic respiratory failure with hypoxia; F17.210 Nicotine dependence, cigarettes, uncomplicated; R91.1 Solitary pulmonary nodule; I26.99 Other pulmonary embolism without acute cor pulmonale; J44.9 Chronic obstructive pulmonary disease, unspecified; K21.9 Gastro-esophageal reflux disease without esophagitis; I10 Essential (primary) hypertension; E78.5 Hyperlipidemia, unspecified
CPT/HCPCS: 99204

== ENCOUNTER 2022-03-07 13:57 | Outpatient (CLI) | payer MEDICARE, MEDICAID, SELFPAY ==
[2020-07-18 17:32] VITALS: BP 115/65; BMI 41.0
--- NOTE | 2022-03-07 14:13 | PFTS_ITS ---
Date of Study:03/07/22 Date of Dictation: MECHANICS: Forced vital capacity (FVC) is reduced. Forced expiratory volume in one second (FEV1) is reduced. FEV1/FVC is reduced. FLOW VOLUME LOOP: Reduced flow at all lung volumes with significant scooping. LUNG VOLUMES: Total lung capacity (TLC) is normal. Residual volume (RV) is increased. DIFFUSING CAPACITY FOR CARBON MONOXIDE: Mild reduced. INTERPRETATION: The postbronchodilator spirometry is consistent with severe airflow obstruction. There is a significant postbronchodilator response. The lung volumes are consistent with air trapping. Gas exchange (DLCO) is mildly reduced. MTDD
== END 2022-03-07 13:58 | disposition home or self-care (01) ==
LOC: RT 13:58
PROVIDERS: PCP Nurse Practitioner Family; Visit Provider Internal Medicine Pulmonary Disease
DX: R91.8 Other nonspecific abnormal finding of lung field (principal); F17.210 Nicotine dependence, cigarettes, uncomplicated
CPT/HCPCS: 94060; 94618; 94726; 94729

== ENCOUNTER → 2022-06-06 14:42 | Outpatient (BNVA) | payer MEDICARE, MEDICAID, SELFPAY ==
[2020-07-18 17:32] VITALS: BP 115/65; BMI 41.0
== END ==
PROVIDERS: PCP Nurse Practitioner Family; Visit Provider Specialist
DX: G47.411 Narcolepsy with cataplexy (principal); G47.33 Obstructive sleep apnea (adult) (pediatric); F17.210 Nicotine dependence, cigarettes, uncomplicated
CPT/HCPCS: 99214

== ENCOUNTER 2022-08-08 06:31 | Emergency (ER) | payer MEDICARE, MEDICAID, SELFPAY ==
[2020-07-18 17:32] VITALS: BP 115/65; BMI 41.0
[2022-08-08 06:32] VITALS: O2SAT 85; BMI 37.3
[2022-08-08 06:35] VITALS: BP 152/94; PULSE 81; RESP 18; TEMP 36.3; O2SAT 91
--- NOTE | 2022-08-08 06:37 | XRR_ITS ---
PROCEDURE INFORMATION: Exam: XR Right Ankle Exam date and time: 08/08/2022 7:03 AM Age: 56 years old Clinical indication: Injury or trauma; Fall; Blunt trauma; Right; Injury details: History--pt fell face forward and claims that her RT ankle is in pain. Pain level is at an 8. And she states that it hurts from her ankle up to her knee. ; Additional info: Pain, injury TECHNIQUE: Imaging protocol: Radiologic exam of the Right ankle. Views: 3 or more views. COMPARISON: CR XR foot RT min 3V* [id number] 11/30/2019 10:06 AM FINDINGS: Bones/joints: There is a nondisplaced oblique fracture of the distal fibula at the level of the ankle joint. Swelling of the surrounding soft tissues is present. No dislocation. Soft tissues: See Bones/joints finding. XR/XR ankle RT min 3V* [id number] IMPRESSION: Nondisplaced fracture of the distal fibula at the level of the ankle joint.
--- NOTE | 2022-08-08 06:38 | ED_ITS ---
HPI - Extremity Problem General: Chief complaint: Extremity Injury, Lower Stated complaint: Fall/Ankle Pain Time Seen by Provider: 08/08/22 06:34 Source: patient and EMS Mode of arrival: EMS History of Present Illness: Patient with complaints of right ankle pain after tripping when getting out of bed. Patient denies any other injury. She denies any neurological changes. She denies head injury. She denies any pain to the head neck back chest abdomen or pelvis. She denies any pain in the remainder of her extremities. She states she does have COPD and wears oxygen at 3 L/min normally. MD Complaint: extremity pain, extremity swelling, joint swelling and joint pain Onset (ago): minute(s) (30) Pain Consistency: constant Location: right and lower extremity (Ankle) Quality: aching and sharp Relieving factors: immobilization Exacerbating factors: range of motion, weight bearing and walking Associated symptoms: Reports short of breath; Deny chest pain, fever(s), myalgias or rash Review of Systems Const: Denies: fever(s) Eyes: Denies: change in vision ENMT: Denies: throat pain Card: Denies: chest pain GI: Denies: abdominal pain, nausea or vomiting : Denies: flank pain Musc: Reports: joint pain and joint swelling; Denies: neck pain, back pain or muscle weakness Skin/Breast: Denies: rash Neuro: Denies: headache(s), numbness in extremities, weakness in extremities or sensory changes Psych: Denies: anxiety Memo/Lymph: Denies: enlarged lymph nodes PFS ED PFSH: Medical History Acute exacerbation of chronic obstructive airways disease Acute hypercapnic respiratory failure Acute on chronic respiratory failure with hypoxemia Anxiety and depression Bilateral pulmonary embolism -on AC with Eliquis Bipolar 2 disorder Chronic pain Chronic post-traumatic stress disorder (PTSD) COPD (chronic obstructive pulmonary disease) Chronic COPD. Chronic smoking. She is aware of the risks of cigarette smoking with COPD. GERD (gastroesophageal reflux disease) Hepatitis C virus infection cured after antiviral drug therapy Hyperlipidemia Hypertension Hypothyroidism Insomnia Non-insulin dependent type 2 diabetes mellitus Obstructive sleep apnea Ovarian cyst Pneumonia Psychiatric care Spinal stenosis Tobacco use disorder, continuous Surgical History H/O section Status post left foot surgery Family History Mother Cancer Breast cancer Social History Smoking and tobacco status: current every day smoker cigarettes Packs smoked per day: 1 Years cigarettes smoked: 30 [ Other cigarette details: started age 9, regular smoker by age 13; currently 1ppd ] Quit status (tobacco): considering quitting Second hand smoke exposure: No Alcohol intake: never Counseling given: No Last substance use date: 10/26/19 Household members: children Current occupational status: unemployed History of recent travel: No Physical Exam Const: COMMON NORMALS: patient oriented x3, alert and well nourished GENERAL APPEARANCE: cooperative HENMT: COMMON NORMALS: normocephalic and atraumatic HEAD & SCALP: normocephalic and atraumatic Eye: COMMON NORMALS: EOMs intact bilaterally Neck/C-Spine: COMMON NORMALS: full ROM, no lymphadenopathy, supple and no JVD Lymph: LYMPHATIC: no lymphadenopathy noted Chest: COMMONS NORMALS: normal inspection of the chest and normal palpation of entire chest wall Resp: COMMON NORMALS: normal respiratory effort, No retractions and No use of accessory muscles OTHER: Mild wheezing bilaterally. Mild shortness of breath off oxygen. No shortness of breath after patient placed on oxygen at 3 L/min. Cardio: COMMON NORMALS: no JVD, regular rate, regular rhythm and Peripheral pulses 2+ throughout RATE: regular rate RHYTHM: regular rhythm PERIPHERAL PULSES: Peripheral pulses 2+ throughout GI: COMMON NORMALS: Normal to inspection, nondistended, normoactive bowel sounds present, Soft to palpation and non-tender PALPATION: Yes Soft to palpation : COMMON NORMALS: Yes no CVA tenderness BLADDER/KIDNEY EXAM: Yes no CVA tenderness Back/Pelvis: COMMON NORMALS: no CVA tenderness Extremity: OTHER: Patient has moderate soft tissue swelling and pain to the right lateral malleolus of right ankle. No laceration abrasion or puncture wound. No other injury seen. Peripheral pulses are normal. Capillary refill less than 2 seconds. Remainder of the extremities are without injury. Back is nontender. Neuro: COMMON NORMALS: patient oriented x3, CN's II-XII intact bilaterally, moves all extremities, no focal motor deficits and no sensory deficits noted SENSORIUM/ORIENTATION: Yes alert Psych: COMMON NORMALS: mental status grossly normal, Normal thought process present, cooperative, normal affect and speech normal SPEECH: Yes normal speech THOUGHT PROCESS: Normal thought process present Skin: COMMON NORMALS: no rashes or lesions noted GENERAL SKIN EXAM: no rashes or lesions noted Course Vital Signs: Vital signs: Vital Signs Temperature 97.3 F L 08/08/22 06:35 Pulse Rate 80 08/08/22 06:47 Respiratory Rate 18 08/08/22 06:45 Blood Pressure 152/94 08/08/22 06:35 Pulse Oximetry 93 08/08/22 06:45 Oxygen Delivery Me thod 08/08/22 06:45 Oxygen Flow Rate 3 08/08/22 06:45 MDM - Extremity (Nontraumatic) Medical Decision Making Ankle sprain versus ankle fracture. Patient with ankle fracture. Patient given a prescription for a wheelchair. Patient later stated that she could not use a wheelchair. She states she would rather have crutches. She does wear oxygen 3 L/min continuously. Dr. Camarlilo is the orthopedist on-call and she will follow up with him. Imaging Data Xray Ortho: My impression: Nondisplaced closed oblique fracture of the distal right fibula. Other Data I inspected posterior customized OCL splint placed by the nurse. Patient has good range of motion of all the toes. Good capillary refill. Good motor and sensory. Splint appears in good condition. Discharge Plan Discharge Patient Disposition: Home Clinical Impression: Nondisplaced oblique fracture of shaft of right fibula, initial encounter for closed fracture Condition: Stable Prescriptions: New hydrocodone-acetaminophen 5-325 mg tablet 1 tab PO Q6H PRN (Reason: pain) Qty: 15 0RF No Action Breztri Aerosphere 160-9-4.8 mcg/actuation HFA aerosol inhaler 2 inh inhalation BID Qty: 10.7 3RF Eliquis 5 mg tablet 5 mg PO BID modafinil [Provigil] 200 mg tablet 200 mg PO BID Qty: 30 5RF duloxetine [Cymbalta] 60 mg capsule,delayed release(DR/EC) 120 mg PO QAM Qty: 60 2RF Rx Instructions: Take two capsules by mouth every morning lamotrigine 100 mg tablet 100 mg PO BID Qty: 60 2RF Rx Instructions: Take one tablet by mouth every morning and at bedtime quetiapine 150 mg tablet extended release 24 hr 150 mg PO BEDTIME Qty: 30 2RF Rx Instructions: Take one tablet daily by mouth at bedtime trazodone 50 mg tablet 50 mg PO DAILY PRN (Reason: insomnia) Qty: 30 2RF Rx Instructions: Take one tablet daily at bedtime, if needed for insomnia methylprednisolone [Medrol (Wilber)] 4 mg tablets,dose pack See Rx Instructions PO PER PKG DIR Qty: 21 0RF Rx Instructions: PO PER PKG DIR doxycycline hyclate 100 mg tablet 100 mg PO BID 7 Days Qty: 14 0RF ipratropium-albuterol 0.5 mg-3 mg(2.5 mg base)/3 mL solution for nebulization 3 ml inhalation Q6H PRN (Reason: wheezing) Qty: 90 3RF (DME) CPAP Machine/Supplies See Rx Instructions .Route .MEDSUPPLY Qty: 1 0RF Rx Instructions: Order for CPAP Machine and Supplies (DME) CPAP w/Humidifier, Headgear See Rx Instructions .Route .MEDSUPPLY Qty: 1 0RF Rx Instructions: As directed montelukast 10 mg tablet 10 mg PO DAILY albuterol sulfate 90 mcg/actuation HFA aerosol inhaler 2 inh INHALATION Q4H PRN (Reason: shortness of breath or wheezing) Qty: 18 0RF metformin 500 mg tablet 500 mg PO BID omeprazole 40 mg Capsule,Delayed Release(Dr/Ec) 40 mg PO DAILY gabapentin 300 mg Capsule 300 mg PO TID acetaminophen [Tylenol Ex Str Rapid Release] 500 mg Tablet 1,500 mg PO Q4H PRN (Reason: Pain) ibuprofen 200 mg Tablet 600 mg PO Q4H PRN (Reason: Pain) dicyclomine 10 mg Capsule 10 mg PO QID PRN (Reason: Cramps) Spiriva Respimat 2.5 mcg/actuation Mist 2 puff INHALATION QAM levothyroxine 100 mcg tablet 100 mcg PO DAILY Discharge Orders: Discharge ED (Routine); Ordered 08/08/22 Ordered By: Anthony Reyes Referrals: Marquise,Satnam, DO [Physician] - 1-3 days (for evaluation of nondisplaced oblique closed fracture of the distal end of the right fibula) Lan,Tayler, CIGAR [employer]BACCO REHANDLER [Primary Care Provider] - Discharge Diet: Advance as tolerated Discharge Activity: Wheelchair as instructed Patient Instructions: Ankle Fracture (ED), Wheel Chair Transfers (ED), Splint Care (ED), Opioid Safety, Pain Management Activity Restrictions/Additional Instructions: No weightbearing on right ankle or splint. Use crutches or wheelchair. Follow- up with your family doctor as needed. Follow-up with orthopedist Dr. Camarillo this week for evaluation. Coding Level of Care Code ED Retrimmer for Chg Fwd Exam Comprehensive
[2022-08-08 06:45] VITALS: PULSE 75; RESP 18; O2SAT 93
[2022-08-08] MEDS: ipratropium-albuterol 3 mL Neb INHALATION (06:45)
[2022-08-08 06:47] VITALS: PULSE 80
[2022-08-08 07:35] VITALS: PULSE 82; O2SAT 93
== END 2022-08-08 08:30 | disposition home or self-care (01) ==
PROVIDERS: Emergency Provider Family Medicine; PCP Nurse Practitioner Family
DX: S82.434A Nondisplaced oblique fracture of shaft of right fibula, initial encounter for closed fracture (principal); Z79.01 Long term (current) use of anticoagulants; Z79.84 Long term (current) use of oral hypoglycemic drugs; J44.9 Chronic obstructive pulmonary disease, unspecified; Z86.19 Personal history of other infectious and parasitic diseases; E78.5 Hyperlipidemia, unspecified; I10 Essential (primary) hypertension; E11.9 Type 2 diabetes mellitus without complications; F17.210 Nicotine dependence, cigarettes, uncomplicated; W01.0XXA Fall on same level from slipping, tripping and stumbling without subsequent striking against object, initial encounter
CPT/HCPCS: 29505; 73610; 94640; 99283

== ENCOUNTER → 2022-08-14 10:27 | Outpatient (BNVA) | payer MEDICARE, MEDICAID, SELFPAY ==
[2020-07-18 17:32] VITALS: BP 115/65; BMI 41.0
== END ==
PROVIDERS: PCP Nurse Practitioner Family; Referring Provider Family Medicine; Visit Provider Student in an Organized Health Care Education/Training Program
DX: S82.831A Other fracture of upper and lower end of right fibula, initial encounter for closed fracture (principal); X58.XXXA Exposure to other specified factors, initial encounter; F17.200 Nicotine dependence, unspecified, uncomplicated
CPT/HCPCS: 73610

== ENCOUNTER 2022-08-14 14:38 | Outpatient (CLI) | payer MEDICARE, MEDICAID, SELFPAY ==
[2020-07-18 17:32] VITALS: BP 115/65; BMI 41.0
== END 2022-08-14 14:39 | disposition home or self-care (01) ==
LOC: SPT 14:39
PROVIDERS: PCP Nurse Practitioner Family; Visit Provider Student in an Organized Health Care Education/Training Program
DX: Z46.89 Encounter for fitting and adjustment of other specified devices (principal); S82.434D Nondisplaced oblique fracture of shaft of right fibula, subsequent encounter for closed fracture with routine healing; X58.XXXD Exposure to other specified factors, subsequent encounter
CPT/HCPCS: 97760; 99204; L4361

== ENCOUNTER 2022-09-02 00:26 | Emergency (ER) | payer MEDICARE, MEDICAID, SELFPAY ==
[2020-07-18 17:32] VITALS: BP 115/65; BMI 41.0
[2022-09-02 00:31] VITALS: BP 177/106; PULSE 77; RESP 22; TEMP 36.5; O2SAT 95; BMI 37.9
--- NOTE | 2022-09-02 00:39 | CTR_ITS ---
PROCEDURE INFORMATION: Exam: CT Abdomen And Pelvis With Contrast Exam date and time: 09/02/2022 1:29 AM Age: 57 years old Clinical indication: Constipation and nausea and vomiting; Additional info: Abd pain, vomiting TECHNIQUE: Imaging protocol: Computed tomography of the abdomen and pelvis with contrast. Radiation optimization: All CT scans at this facility use at least one of these dose optimization techniques: automated exposure control; mA and/or kV adjustment per patient size (includes targeted exams where dose is matched to clinical indication); or iterative reconstruction. Contrast material: OMNI 350; Contrast volume: 100 ml; Contrast route: INTRAVENOUS (IV); COMPARISON: CT abdomen pelvis w con* [id number] 04/13/2019 11:06 AM RADIATION DOSE METRICS: Total DLP (mGy-cm): 945.26 FINDINGS: Liver: Normal. No mass. Gallbladder and bile ducts: Mild biliary dilation. Cholecystectomy. Pancreas: Normal. No ductal dilation. Spleen: Normal. No splenomegaly. Adrenal glands: Normal. No mass. Kidneys and ureters: Normal. No hydronephrosis. Stomach and bowel: Prominent fluid in the small bowel without dilation may reflect an enteritis. Appendix: No evidence of appendicitis. Intraperitoneal space: Unremarkable. No free air. No significant fluid collection. Vasculature: Unremarkable. No abdominal aortic aneurysm. Lymph nodes: Unremarkable. No enlarged lymph nodes. Urinary bladder: Unremarkable as visualized. Reproductive: Left ovary 4 cm simple cyst. Bones/joints: T11, T12 and L1 compression fractures with mild retropulsion the T12 vertebral body fracture fragments mild narrowing, not present on prior exam. T11 likely chronic spinous process fracture given somewhat sclerotic margin, not present on prior exam. Soft tissues: Unremarkable. CT/CT abdomen pelvis w con* [id number] IMPRESSION: 1. Prominent fluid in the small bowel without dilation may reflect an enteritis. 2. Left ovary 4 cm simple cyst. 3. T11, T12 and L1 compression fractures with mild retropulsion the T12 vertebral body fracture fragments mild narrowing, not present on prior exam. 4. T11 likely chronic spinous process fracture given somewhat sclerotic margin, not present on prior exam. 5. Mild biliary dilation. 6. Cholecystectomy.
[2022-09-02 01:03] VITALS: RESP 22; O2SAT 95
[2022-09-02] MEDS: ondansetron 2 mg/ML SDV 2 mL 4 MG IVP (01:03)
[2022-09-02] MEDS: morphine 4 mg/mL SDV 1 mL IVP (01:03)
[2022-09-02] MEDS: sodium chloride 0.9% 1,000 ML 999 ML IV (01:03)
[2022-09-02 01:07] LABS: Basophils # 0.1 10^3/uL (0.0-0.1); Basophils % 0.6 %; Eosinophils # 0.1 10^3/uL (0.0-0.8); Eosinophils % 1.5 %; Hematocrit 46.3 % (37.0-47.0); Hemoglobin 14.8 g/dL (11.5-15.3); Lymphocytes # 1.3 10^3/uL (0.8-4.8); Lymphocytes % 15.3 %; Mean Corpuscular Hemoglobin 31.2 pg (28.0-34.0); Mean Corpuscular Volume 97.5 fl (81-99); Mean Platelet Volume 10.4 fL (7.4-10.4); Monocytes # 0.6 10^3/uL (0.2-0.9); Monocytes % 7.5 %; Neutrophils # 6.42 10^3/uL (1.8-7.7); Neutrophils % 74.8 %; Nucleated Red Blood Cells % 0 %; Platelet Count 237 10^3/cmm (130-400); Red Blood Count 4.75 10^6/uL (4.1-5.3); Red Cell Distribution Width 12.8 % (12.1-15.1); White Blood Count 8.6 10^3/uL (4.0-10.0)
--- NOTE | 2022-09-02 01:08 | W.ED.ABDPA2 ---
HPI - Abdominal Pain General: Chief Complaint: Abdominal Pain Stated Complaint: ABD PAIN Time Seen by Provider: 09/02/22 00:27 Source: patient History of Present Illness: 57-year-old female with a history of COPD. She notes that she has been constipated on and off for 3 weeks or so. She presents with pain to the periumbilical and epigastric region of her belly. Because of the constipation history, she had taken 3 laxatives at home. She notes some blood in her stool when trying to go. She vomited twice at home as well. She denies fever. She has a history of a cholecystectomy and . MD elicited complaint: abdominal pain Pertinent past history: constipation Onset (ago): day(s) Location: Epigastric and Periumbilical Quality: cramping and stabbing Radiation: none Migration to: no migration Exacerbating factors: nothing Relieving factors: nothing Associated Symptoms: Reports change in stool character, constipation, GI cramping, fever(s), hematochezia and vomiting; Denies belching, chills, diarrhea, hematuria, hematemesis, loose stools and melena Review of Systems Const: Reports: fever(s); Denies: chills ENMT: Denies: throat pain Card: Denies: chest pain Resp: Denies: dyspnea GI: Reports: vomiting, constipation, GI cramping, change in stool character and hematochezia; Denies: hematemesis, diarrhea, belching or melena : Denies: hematuria PFSH ED PFSH: Medical History Acute exacerbation of chronic obstructive airways disease Acute hypercapnic respiratory failure Acute on chronic respiratory failure with hypoxemia Anxiety and depression Bilateral pulmonary embolism -on AC with Eliquis Bipolar 2 disorder Chronic pain Chronic post-traumatic stress disorder (PTSD) COPD (chronic obstructive pulmonary disease) Chronic COPD. Chronic smoking. She is aware of the risks of cigarette smoking with COPD. Fracture of distal end of right fibula GERD (gastroesophageal reflux disease) Hepatitis C virus infection cured after antiviral drug therapy Hyperlipidemia Hypertension Hypothyroidism Insomnia Non-insulin dependent type 2 diabetes mellitus Obstructive sleep apnea Ovarian cyst Pneumonia Psychiatric care Spinal stenosis Tobacco use disorder, continuous Surgical History H/O section Status post left foot surgery Family History Mother Cancer Breast cancer Social History Smoking and tobacco status: never smoked Quit status (tobacco): considering quitting Second hand smoke exposure: No Alcohol intake: never Counseling given: No Last substance use date: 10/26/19 Household members: children Current occupational status: unemployed History of recent travel: No Physical Exam Const: GENERAL APPEARANCE: cooperative and in distress (in pain); not frail appearing HENMT: COMMON NORMALS: normocephalic, atraumatic and Normal external nose present HEAD & SCALP: normocephalic and atraumatic FACE & SINUS: normal facial exam and face symmetric NOSE: Normal external nose present and No nasal polyps present Eye: COMMON NORMALS: Equal, round and reactive pupils present and EOMs intact bilaterally PUPIL: Yes Equal, round and reactive pupils present Neck/C-Spine: GENERAL: Yes trachea midline Chest: CHEST: Yes Symmetrical chest wall rise Resp: COMMON NORMALS: normal respiratory effort, No use of accessory muscles and clear to auscultation bilaterally AUSCULTATION: clear to auscultation bilaterally Cardio: COMMON NORMALS: regular rate and regular rhythm RATE: regular rate RHYTHM: regular rhythm GI: COMMON NORMALS: Normal to inspection, nondistended, normoactive bowel sounds present and Soft to palpation PALPATION: Yes Soft to palpation and Yes Tenderness to palpation present (GI) (Epigastric) Extremity: COMMON NORMALS: no pedal edema Neuro: NAZIA COMA SCALE: document GCS findings Nazia coma scale eye opening: Spontaneous Nazia coma scale verbal response: Orientated [place] coma scale motor response: Obey commands Nazia coma scale total score: 15 Psych: COMMON NORMALS: mental status grossly normal Course Vital Signs: Vital signs: Vital Signs Temperature 97.7 F 09/02/22 00:31 Pulse Rate 81 09/02/22 01:38 Respiratory Rate 22 H 09/02/22 01:03 Blood Pressure 169/100 09/02/22 01:38 Pulse Oximetry 97 09/02/22 01:38 Oxygen Delivery Me thod 09/02/22 01:38 Oxygen Flow Rate 3 09/02/22 01:38 MDM - Abdominal Pain Medical Decision Making 57-year-old lady with epigastric and periumbilical abdominal pain. She is afebrile. She is mildly hypertensive. Her vitals are otherwise normal on her home oxygen. Her CBC is normal. Her BMP is not remarkable. Liver enzymes are not remarkable. Her CRP is 3. CT of the belly shows prominent fluid in the small bowel without dilatation. This could be related to her taking laxatives prior to her arrival versus an enteritis. There are also T11-12 and L1 compression fractures with mild retropulsion causing mild narrowing, not severe narrowing. These were not present 2 years ago, but the patient does not give a history of significant back pain currently or any radicular pain or paresthesia whatsoever. We will treat her symptoms, with pain medication here, but will send her home with magnesium citrate, and a course of Flagyl in case the small bowel fluid is a inflammatory/infectious etiology. Lab Data : 09/02/22 00:40 09/02/22 00:40 Labs/Radiology: Radiology Impressions Abdomen/Pelvis CT 09/02/22 00:39 IMPRESSION: 1. Prominent fluid in the small bowel without dilation may reflect an enteritis. 2. Left ovary 4 cm simple cyst. 3. T11, T12 and L1 compression fractures with mild retropulsion the T12 vertebral body fracture fragments mild narrowing, not present on prior exam. 4. T11 likely chronic spinous process fracture given somewhat sclerotic margin, not present on prior exam. 5. Mild biliary dilation. 6. Cholecystectomy. Laboratory Results WBC 8.6 10^3/uL (4.0-10.0) 09/02/22 00:40 RBC 4.75 10^6/uL (4.1-5.3) 09/02/22 00:40 Hgb 14.8 g/dL (11.5-15.3) 09/02/22 00:40 Hct 46.3 % (37.0-47.0) 09/02/22 00:40 MCV 97.5 fl (81-99) 09/02/22 00:40 MCH 31.2 pg (28.0-34.0) 09/02/22 00:40 MCHC 32.0 g/dL (30.0-36.0) 09/02/22 00:40 RDW 12.8 % (12.1-15.1) 09/02/22 00:40 Plt Count 237 10^3/cmm (130-400) 09/02/22 00:40 MPV 10.4 fL (7.4-10.4) 09/02/22 00:40 Neut % (Auto) 74.8 % 09/02/22 00:40 Lymph % (Auto) 15.3 % 09/02/22 00:40 [place] % (Auto) 7.5 % 09/02/22 00:40 Eos % (Auto) 1.5 % 09/02/22 00:40 Baso % (Auto) 0.6 % 09/02/22 00:40 Neut # (Auto) 6.42 10^3/uL (1.8-7.7) 09/02/22 00:40 Lymph # (Auto) 1.3 10^3/uL (0.8-4.8) 09/02/22 00:40 [place] # (Auto) 0.6 10^3/uL (0.2-0.9) 09/02/22 00:40 Eos # (Auto) 0.1 10^3/uL (0.0-0.8) 09/02/22 00:40 Baso # (Auto) 0.1 10^3/uL (0.0-0.1) 09/02/22 00:40 Nucleated RBC % (auto) 0 % 09/02/22 00:40 Nucleated RBCs # 0.0 /100WBC 09/02/22 00:40 Sodium 136 mmol/L (136-145) 09/02/22 00:40 Potassium 4.6 mmol/L (3.5-5.1) 09/02/22 00:40 Chloride 96 mmol/L (98-107) L 09/02/22 00:40 Carbon Dioxide 32 mmol/L (22-29) H 09/02/22 00:40 Anion Gap 12.6 (5-19) 09/02/22 00:40 BUN 9 mg/dL (6-20) 09/02/22 00:40 Creatinine 0.5 mg/dL (0.5-0.9) 09/02/22 00:40 GFR Calculation 126.3 mL/min (90-130) 09/02/22 00:40 Glucose 135 mg/dL (65-115) H 09/02/22 00:40 Calculated Osmolality 283 mOsm/kg (285-295) L 09/02/22 00:40 Lactate 1.0 mmol/L (0.5-2.2) 09/02/22 01:07 Calcium 9.5 mg/dL (8.5-10.5) 09/02/22 00:40 Total Bilirubin 0.2 mg/dL (0.15-1.2) 09/02/22 00:40 AST 14 U/L (0-32) 09/02/22 00:40 ALT 13 U/L (0-33) 09/02/22 00:40 Alkaline Phosphatase 114 U/L (35-105) H 09/02/22 00:40 C-Reactive Protein 3.0 mg/L (0.0-4.9) 09/02/22 00:40 Total Protein 6.9 g/dL (6.6-8.7) 09/02/22 00:40 Albumin 4.1 g/dL (3.5-5.2) 09/02/22 00:40 Globulin 2.8 g/dL (1.3-4.6) 09/02/22 00:40 Lipase 12 U/L (13-60) L 09/02/22 00:40 Urine Color Yellow (Yellow) 09/02/22 01:00 Urine Appearance Clear (CLEAR) 09/02/22 01:00 Urine pH 5 (5-7) 09/02/22 01:00 Ur Specific [place] 1.025 (1.005-1.030) 09/02/22 01:00 Urine Protein Trace (Negative) 09/02/22 01:00 Urine Glucose (UA) Norm (Normal) 09/02/22 01:00 Urine Ketones Negative (Negative) 09/02/22 01:00 Urine Blood Neg (Negative) 09/02/22 01:00 Urine Nitrate Negative (Negative) 09/02/22 01:00 Urine Bilirubin Neg (Negative) 09/02/22 01:00 Urine Urobilinogen Neg mg/dL (Negative) 09/02/22 01:00 Ur Leukocyte Esterase Negative (Negative) 09/02/22 01:00 Urine RBC 0-4 /hpf (0-2) H 09/02/22 01:00 Urine WBC None /hpf (0-5) 09/02/22 01:00 Ur Squamous Epith Cells 10-15 /hpf (0-5) H 09/02/22 01:00 Amorphous Sediment Not Reportable 09/02/22 01:00 Urine Bacteria None /hpf (NONE) 09/02/22 01:00 Discharge Plan Discharge Patient Disposition: Home Clinical Impression: Enteritis Condition: Stable Prescriptions: New metronidazole 500 mg tablet 500 mg PO BID 7 Days Qty: 14 0RF magnesium citrate Solution 270 ml PO DAILY Qty: 296 0RF No Action Breztri Aerosphere 160-9-4.8 mcg/actuation HFA aerosol inhaler 2 inh inhalation BID Qty: 10.7 3RF Eliquis 5 mg tablet 5 mg PO BID modafinil [Provigil] 200 mg tablet 200 mg PO BID Qty: 30 5RF duloxetine [Cymbalta] 60 mg capsule,delayed release(DR/EC) 120 mg PO QAM Qty: 60 1RF Rx Instructions: Take two capsules by mouth every morning lamotrigine 100 mg tablet 100 mg PO BID Qty: 60 2RF Rx Instructions: Take one tablet by mouth every morning and at bedtime quetiapine 150 mg tablet extended release 24 hr 150 mg PO BEDTIME Qty: 30 1RF Rx Instructions: Take one tablet daily by mouth at bedtime trazodone 50 mg tablet 50 mg PO DAILY PRN (Reason: insomnia) Qty: 30 1RF Rx Instructions: Take one tablet daily at bedtime, if needed for insomnia (DME) cam boot See Rx Instructions .Route .MEDSUPPLY Qty: 1 0RF Rx Instructions: As directed ipratropium-albuterol 0.5 mg-3 mg(2.5 mg base)/3 mL solution for nebulization 3 ml inhalation Q6H PRN (Reason: wheezing) Qty: 90 3RF (DME) CPAP Machine/Supplies See Rx Instructions .Route .MEDSUPPLY Qty: 1 0RF Rx Instructions: Order for CPAP Machine and Supplies (DME) CPAP w/Humidifier, Headgear See Rx Instructions .Route .MEDSUPPLY Qty: 1 0RF Rx Instructions: As directed montelukast 10 mg tablet 10 mg PO DAILY albuterol sulfate 90 mcg/actuation HFA aerosol inhaler 2 inh INHALATION Q4H PRN (Reason: shortness of breath or wheezing) Qty: 18 0RF omeprazole 40 mg Capsule,Delayed Release(Dr/Ec) 40 mg PO DAILY gabapentin 300 mg Capsule 300 mg PO TID acetaminophen [Tylenol Ex Str Rapid Release] 500 mg Tablet 1,500 mg PO Q4H PRN (Reason: Pain) ibuprofen 200 mg Tablet 600 mg PO Q4H PRN (Reason: Pain) dicyclomine 10 mg Capsule 10 mg PO QID PRN (Reason: Cramps) Spiriva Respimat 2.5 mcg/actuation Mist 2 puff INHALATION QAM levothyroxine 100 mcg tablet 100 mcg PO DAILY Discharge Orders: Discharge ED (Routine); Ordered 09/02/22 Ordered By: Fredis Cortez Referrals: Lan,Tayler, OPERATIONS AGENT [Primary Care Provider] - 1-3 days Patient Instructions: Enteritis (ED), Opioid Safety, Pain Management Activity Restrictions/Additional Instructions: Antibiotic as directed. If you do not begin to have significant bowel movements in the next 12 to 24 hours, use the bottle of magnesium citrate as ordered. Return for continued fever greater than 100 despite treatment, worsening pain despite treatment, vomiting liquids or medications despite treatment, any other concerning symptoms. Follow-up with your doctor. Coding Level of Care Code ED Funeral Home Manager for Chg Fwd Exam Comprehensive
[2022-09-02] MEDS: iohexol 350 mg/mL 500 mL Btl (per mL) IV (01:23)
[2022-09-02 01:24] LABS: Alanine Aminotransferase 13 U/L (0-33); Albumin Level 4.1 g/dL (3.5-5.2); Alkaline Phosphatase 114 U/L (35-105); Anion Gap 12.6 (5-19); Aspartate Amino Transferase 14 U/L (0-32); Blood Urea Nitrogen 9 mg/dL (6-20); Calcium 9.5 mg/dL (8.5-10.5); Carbon Dioxide 32 mmol/L (22-29); Chloride 96 mmol/L (98-107); Creatinine Clr Calc Pharmacy 149.5912; Globulin 2.8 g/dL (1.3-4.6); Glomerular Filtration Rate 126.3 mL/min (90-130); Glucose 135 mg/dL (65-115); Lipase 12 U/L (13-60); Osmolality Calculated 283 mOsm/kg (285-295); Potassium 4.6 mmol/L (3.5-5.1); Sodium 136 mmol/L (136-145); Total Bilirubin 0.2 mg/dL (0.15-1.2); Total Protein 6.9 g/dL (6.6-8.7)
[2022-09-02 01:38] VITALS: BP 169/100; PULSE 81; O2SAT 97
[2022-09-02 02:07] LABS: Add Urine Microscopic? YES; Bilirubin Urine Neg (Negative); Blood Urine Neg (Negative); Glucose Urine UA Norm (Normal); Ketones Urine Negative (Negative); Leukocyte Esterase Urine Negative (Negative); Nitrate Urine Negative (Negative); Protein Urine Trace (Negative); Specific Gravity, Urine 1.025 (1.005-1.030); Urine Appearance Clear (CLEAR); Urine Color Yellow (Yellow); Urobilinogen Urine Neg (Negative); pH Urine 5 (5-7)
[2022-09-02 02:08] LABS: Add Urine Culture? No; RBC Urine 0-4 /hpf (0-2)
[2022-09-02 02:32] VITALS: RESP 22; O2SAT 95
[2022-09-02] MEDS: metroNIDAZOLE 500 MG Tablet PO (02:32)
[2022-09-02] MEDS: HYDROmorphone 1 mg/mL INJ 1 mL IVP (02:32)
[2022-09-02] MEDS: ketorolac 30 mg/mL INJ 15 MG IVP (02:32)
[2022-09-02 02:51] VITALS: BP 169/100; RESP 22; O2SAT 95
== END 2022-09-02 02:51 | disposition home or self-care (01) ==
PROVIDERS: Emergency Provider Emergency Medicine; PCP Nurse Practitioner Family
DX: K52.9 Noninfective gastroenteritis and colitis, unspecified (principal)
CPT/HCPCS: 74177; 80053; 81001; 83605; 83690; 85025; 85610; 85730; 86140; 96361; 96374; 96375; 99284; 99285; J1170; J1885; J2270; J2405; J7030; J7120; Q9967

== ENCOUNTER 2022-09-02 15:56 | Emergency (ER) | payer MEDICARE, MEDICAID, SELFPAY ==
[2020-07-18 17:32] VITALS: BP 115/65; BMI 41.0
[2022-09-02 16:00] VITALS: BP 155/77; PULSE 60; RESP 21; TEMP 36.6; O2SAT 97
--- NOTE | 2022-09-02 16:16 | W.ED.GIBLEED ---
HPI - GI Bleed General: Chief complaint: GI Bleed Stated complaint: BLOOD IN STOOL Time Seen by Provider: 09/02/22 16:02 Source: patient Mode of arrival: EMS Limitations: no limitations History of Present Illness: This patient returns to the emergency department. She was seen earlier today and discharged approximately 1 AM. She is here because she continues to have abdominal cramping and what she describes as blood in her stools. She states that the symptoms began yesterday and were preceded by a period of time when she felt like she had the urge to defecate but only defecated a small amount. She states that she did not have a hard stool which preceded the onset of her symptoms. She states that there she did not vomit any blood today but she continues to feel like she cannot drink fluids well. She takes Eliquis and when asked why she states that she told she had a clot in her lung about a year ago. She states she has never had blood clots anywhere else prior to that 1 episode. She denies having coronary stents or other stents placed in her vasculature. She denies any fevers or chills. She has COPD and wears oxygen 13/05. She denies chest pain or other change in her constitutional condition. She denies any other bleeding dyscrasias or bleeding from any other source. MD complaint: gross hematochezia Pain Consistency: intermittent Associated symptoms: Reports abdominal pain, easy bruising and nausea; Denies chills, fever(s), headache(s) or rash Review of Systems Const: Denies: fever(s) or chills Eyes: Denies: change in vision or blurry vision ENMT: Denies: throat pain, odynophagia, nasal congestion or nasal obstruction Card: Denies: chest pain, palpitations or irregular heart rhythm Resp: Denies: productive cough or non-productive cough GI: Reports: abdominal pain, nausea and hematochezia; Denies: melena or mucus in stool : Denies: difficulty voiding, dysuria or urinary frequency Musc: Denies: neck pain, back pain or extremity pain Skin/Breast: Denies: rash Neuro: Denies: headache(s), numbness in extremities or weakness in extremities Memo/Lymph: Reports: easy bruising; Denies: easy bleeding or petechiae PFS ED PFSH: Medical History Acute exacerbation of chronic obstructive airways disease Acute hypercapnic respiratory failure Acute on chronic respiratory failure with hypoxemia Anxiety and depression Bilateral pulmonary embolism -on AC with Eliquis Bipolar 2 disorder Chronic pain Chronic post-traumatic stress disorder (PTSD) COPD (chronic obstructive pulmonary disease) Chronic COPD. Chronic smoking. She is aware of the risks of cigarette smoking with COPD. Fracture of distal end of right fibula GERD (gastroesophageal reflux disease) Hepatitis C virus infection cured after antiviral drug therapy Hyperlipidemia Hypertension Hypothyroidism Insomnia Non-insulin dependent type 2 diabetes mellitus Obstructive sleep apnea Ovarian cyst Pneumonia Psychiatric care Spinal stenosis Tobacco use disorder, continuous Surgical History H/O section Status post left foot surgery Family History Mother Cancer Breast cancer Social History Smoking and tobacco status: never smoked Quit status (tobacco): considering quitting Second hand smoke exposure: No Alcohol intake: never Counseling given: No Last substance use date: 10/26/19 Household members: children Current occupational status: unemployed History of recent travel: No Physical Exam Narrative: EXAM NARRATIVE: She is alert. She seems to be somewhat uncomfortable but is able to answer questions in a goal-directed fashion. Const: COMMON NORMALS: no limitations and alert GENERAL APPEARANCE: cooperative NUTRITIONAL APPEARANCE: overweight HENMT: COMMON NORMALS: normocephalic, Normal external nose present (Nasal cannula in situ), Normal nasal mucous membranes and turbinates present and moist oral mucous membranes HEAD & SCALP: normocephalic NOSE: Normal external nose present (Nasal cannula in situ) and Normal nasal mucous membranes and turbinates present Eye: COMMON NORMALS: Equal, round and reactive pupils present, EOMs intact bilaterally and conjunctivae normal CONJUNCTIVA: Yes conjunctivae normal PUPIL: Yes Equal, round and reactive pupils present Neck/C-Spine: COMMON NORMALS: full ROM, no lymphadenopathy, no JVD and No carotid bruits Chest: COMMONS NORMALS: normal inspection of the chest Resp: COMMON NORMALS: normal respiratory effort, No retractions and clear to auscultation bilaterally AUSCULTATION: clear to auscultation bilaterally Cardio: COMMON NORMALS: no JVD, regular rate, regular rhythm, No murmurs present (Cardio) and Peripheral pulses 2+ throughout RATE: regular rate RHYTHM: regular rhythm PERIPHERAL PULSES: Peripheral pulses 2+ throughout GI: COMMON NORMALS: Normal to inspection, nondistended, normoactive bowel sounds present, Soft to palpation, non-tender and no masses PALPATION: Yes Soft to palpation RECTAL EXAM: visual inspection normal, normal sphincter tone, heme positive stool (No stool on examining finger however the mucous placed on the guaiac card w), no fissure noted and hemorrhoids (Hemorrhoidal tags no bleeding no friability no distention.) : COMMON NORMALS: Yes no CVA tenderness BLADDER/KIDNEY EXAM: Yes no CVA tenderness Back/Pelvis: COMMON NORMALS: no CVA tenderness, thoracic and lumbar spine normal to inspection, no thoracic nor lumbar tenderness and thoraco-lumbar ROM normal Extremity: COMMON NORMALS: normal to inspection, full ROM, capillary refill normal and no joint enlargement Neuro: COMMON NORMALS: moves all extremities, no focal motor deficits and no sensory deficits noted SENSORIUM/ORIENTATION: Yes alert SPEECH: speech normal Psych: COMMON NORMALS: mental status grossly normal Skin: COMMON NORMALS: no rashes or lesions noted, no jaundice and no petechiae GENERAL SKIN EXAM: no rashes or lesions noted Course Reevaluation(s): Reevaluation #1: Patient clinically looks stable. Her vital signs are normal. Her abdomen is soft and has no evidence of peritoneal irritation. Her hemoglobin and other parameters are reassuring. Her hemoglobin is essentially unchanged from that at 1:00 this morning. She apparently has improved symptomatically after the antispasmodics. Plan will be to continue to hydrate her in the emergency department and plan on her continuing the antibiotics prescribed by Dr. Cortez as well as I will provide an antispasmodic to improve her symptom relief. Her imaging studies from this morning were reassuring other than the known colitis appearance. Time: 17:54 Vital Signs: Vital signs: Vital Signs Temperature 97.8 F 09/02/22 16:27 Pulse Rate 60 09/02/22 16:27 Respiratory Rate 21 H 09/02/22 16:27 Blood Pressure 155/77 09/02/22 16:27 Pulse Oximetry 97 09/02/22 16:27 Oxygen Delivery Me thod 09/02/22 16:27 Oxygen Flow Rate 3 09/02/22 16:27 MDM - GI Bleed Medical Decision Making This patient seen previously in the emergency department the last 18 hours return because she was concerned about she still had some blood in her stools. She states she was also having a lot of abdominal spasms and pain. Her work-up from just several hours prior was reviewed and her CT scan showed evidence of colitis but no other significant pathology. Her clinical examination was reassuring and that she had a soft abdomen without any peritoneal signs not suggestive of a surgical abdomen. Her rectal examination revealed no obvious sources of bleeding to include fissures inflamed hemorrhoids and was not revealing of any vee blood. She had only mucus in her rectum and which was a trace guaiac positive. She is clinically stable with regards to her her appearance as well as her laboratories to include her hemoglobin. We will add an antispasmodic to help control her symptoms to her current regimen. We will also have her hold her Eliquis until her symptoms improve so that she does not exacerbate her bleeding. Its not clear why she is continuing on Eliquis at this juncture given her solitary pulmonary embolus was over 1 year ago. And she had no prior history of thromboembolic events as far she knows and as I can identify from her chart review. I discussed all findings with her in detail and reassured her. We also discussed return precautions. She is stable to be discharged home. Medical Records I reviewed the patient's medical records. Lab Data I reviewed the patient's lab results. : 09/02/22 16:30 09/02/22 16:30 Laboratory Results WBC 11.0 10^3/uL (4.0-10.0) H 09/02/22 16:30 RBC 4.58 10^6/uL (4.1-5.3) 09/02/22 16:30 Hgb 14.3 g/dL (11.5-15.3) 09/02/22 16:30 Hct 43.8 % (37.0-47.0) 09/02/22 16:30 MCV 95.6 fl (81-99) 09/02/22 16:30 MCH 31.2 pg (28.0-34.0) 09/02/22 16: MCHC 32.6 g/dL (30.0-36.0) 09/02/22 16:30 RDW 12.5 % (12.1-15.1) 09/02/22 16:30 Plt Count 248 10^3/cmm (130-400) 09/02/22 16:30 MPV 10.2 fL (7.4-10.4) 09/02/22 16:30 Neut % (Auto) 79.3 % 09/02/22 16:30 Lymph % (Auto) 12.2 % 09/02/22 16:30 [place] % (Auto) 6.6 % 09/02/22 16:30 Eos % (Auto) 1.0 % 09/02/22 16:30 Baso % (Auto) 0.4 % 09/02/22 16:30 Neut # (Auto) 8.73 10^3/uL (1.8-7.7) H 09/02/22 16:30 Lymph # (Auto) 1.3 10^3/uL (0.8-4.8) 09/02/22 16:30 [place] # (Auto) 0.7 10^3/uL (0.2-0.9) 09/02/22 16:30 Eos # (Auto) 0.1 10^3/uL (0.0-0.8) 09/02/22 16:30 Baso # (Auto) 0.0 10^3/uL (0.0-0.1) 09/02/22 16:30 Nucleated RBC % (auto) 0 % 09/02/22 16:30 Nucleated RBCs # 0.0 /100WBC 09/02/22 16:30 PT 12.50 SECONDS (12.1-14.9) 09/02/22 16:30 INR 0.91 (0.8-1.2) 09/02/22 16:30 APTT 24.4 SECONDS (23.9-36.7) 09/02/22 16:30 Sodium 139 mmol/L (136-145) 09/02/22 16:30 Potassium 4.0 mmol/L (3.5-5.1) 09/02/22 16:30 Chloride 98 mmol/L (98-107) 09/02/22 16:30 Carbon Dioxide 32 mmol/L (22-29) H 09/02/22 16:30 Anion Gap 13.0 (5-19) 09/02/22 16:30 BUN 5 mg/dL (6-20) L 09/02/22 16:30 Creatinine 0.4 mg/dL (0.5-0.9) L 09/02/22 16:30 GFR Calculation 163.4 mL/min (90-130) H 09/02/22 16:30 Glucose 112 mg/dL (65-115) 09/02/22 16:30 Calculated Osmolality 286 mOsm/kg (285-295) 09/02/22 16:30 Calcium 9.2 mg/dL (8.5-10.5) 09/02/22 16:30 Total Bilirubin 0.6 mg/dL (0.15-1.2) 09/02/22 16:30 AST 31 U/L (0-32) 09/02/22 16:30 ALT 29 U/L (0-33) 09/02/22 16:30 Alkaline Phosphatase 141 U/L (35-105) H 09/02/22 16:30 Total Protein 6.8 g/dL (6.6-8.7) 09/02/22 16:30 Albumin 4.1 g/dL (3.5-5.2) 09/02/22 16:30 Globulin 2.7 g/dL (1.3-4.6) 09/02/22 16:30 Discharge Plan Discharge Patient Disposition: Home Clinical Impression: Colitis Condition: Stable Prescriptions: New Levsin 0.125 mg tablet 0.125 mg PO Q4H PRN (Reason: dyspepsia) Qty: 30 0RF No Action Breztri Aerosphere 160-9-4.8 mcg/actuation HFA aerosol inhaler 2 inh inhalation BID Qty: 10.7 3RF Eliquis 5 mg tablet 5 mg PO BID modafinil [Provigil] 200 mg tablet 200 mg PO BID Qty: 30 5RF duloxetine [Cymbalta] 60 mg capsule,delayed release(DR/EC) 120 mg PO QAM Qty: 60 1RF Rx Instructions: Take two capsules by mouth every morning lamotrigine 100 mg tablet 100 mg PO BID Qty: 60 2RF Rx Instructions: Take one tablet by mouth every morning and at bedtime quetiapine 150 mg tablet extended release 24 hr 150 mg PO BEDTIME Qty: 30 1RF Rx Instructions: Take one tablet daily by mouth at bedtime trazodone 50 mg tablet 50 mg PO DAILY PRN (Reason: insomnia) Qty: 30 1RF Rx Instructions: Take one tablet daily at bedtime, if needed for insomnia (DME) cam boot See Rx Instructions .Route .MEDSUPPLY Qty: 1 0RF Rx Instructions: As directed ipratropium-albuterol 0.5 mg-3 mg(2.5 mg base)/3 mL solution for nebulization 3 ml inhalation Q6H PRN (Reason: wheezing) Qty: 90 3RF (DME) CPAP Machine/Supplies See Rx Instructions .Route .MEDSUPPLY Qty: 1 0RF Rx Instructions: Order for CPAP Machine and Supplies (DME) CPAP w/Humidifier, Headgear See Rx Instructions .Route .MEDSUPPLY Qty: 1 0RF Rx Instructions: As directed montelukast 10 mg tablet 10 mg PO DAILY albuterol sulfate 90 mcg/actuation HFA aerosol inhaler 2 inh INHALATION Q4H PRN (Reason: shortness of breath or wheezing) Qty: 18 0RF omeprazole 40 mg Capsule,Delayed Release(Dr/Ec) 40 mg PO DAILY gabapentin 300 mg Capsule 300 mg PO TID acetaminophen [Tylenol Ex Str Rapid Release] 500 mg Tablet 1,500 mg PO Q4H PRN (Reason: Pain) ibuprofen 200 mg Tablet 600 mg PO Q4H PRN (Reason: Pain) dicyclomine 10 mg Capsule 10 mg PO QID PRN (Reason: Cramps) Spiriva Respimat 2.5 mcg/actuation Mist 2 puff INHALATION QAM levothyroxine 100 mcg tablet 100 mcg PO DAILY metronidazole 500 mg tablet 500 mg PO BID 7 Days Qty: 14 0RF magnesium citrate Solution 270 ml PO DAILY Qty: 296 0RF Discharge Orders: Discharge ED (Routine); Ordered 09/02/22 Ordered By: Greg Naranjo Referrals: Tayler aLn FNP [Primary Care Provider] - Discharge Diet: Advance as tolerated Discharge Activity: Increase activity as tolerated Patient Instructions: Opioid Safety, Pain Management Activity Restrictions/Additional Instructions: Do not take your Eliquis until all your symptoms have resolved and then may you may resume it. We also recommend you discussing your need for continued Eliquis with your primary care provider or whoever prescribes your Eliquis. We have provided an antispasmodic pain medicine to help with your symptoms. You should continue the antibiotics prescribed by Dr. Shankar earlier today. Do not use any milk products or caffeinated beverages until your symptoms are completely resolved. If your symptoms do not continue to improve, worsen at any time such as high fevers worsening abdominal pain or other concerns return to this or the nearest emergency department. Coding Level of Care Code ED Sheet [employer] Superintendent for Parmjit Colin Exam Comprehensive
[2022-09-02 16:27] VITALS: BP 155/77; PULSE 60; RESP 21; TEMP 36.6; O2SAT 97
[2022-09-02 16:38] LABS: Basophils % 0.4 %; Eosinophils # 0.1 10^3/uL (0.0-0.8); Hematocrit 43.8 % (37.0-47.0); Hemoglobin 14.3 g/dL (11.5-15.3); Lymphocytes # 1.3 10^3/uL (0.8-4.8); Lymphocytes % 12.2 %; Mean Corpuscular HGB Conc 32.6 g/dL (30.0-36.0); Mean Corpuscular Hemoglobin 31.2 pg (28.0-34.0); Mean Corpuscular Volume 95.6 fl (81-99); Mean Platelet Volume 10.2 fL (7.4-10.4); Monocytes # 0.7 10^3/uL (0.2-0.9); Monocytes % 6.6 %; Neutrophils # 8.73 10^3/uL (1.8-7.7); Neutrophils % 79.3 %; Nucleated Red Blood Cells % 0 %; Platelet Count 248 10^3/cmm (130-400); Red Blood Count 4.58 10^6/uL (4.1-5.3); Red Cell Distribution Width 12.5 % (12.1-15.1)
[2022-09-02] MEDS: lactated ringers 1,000 ML 999 ML IV (16:48)
[2022-09-02] MEDS: hyoscyamine ODT 0.125 mg Tablet 0.25 MG PO (16:49)
[2022-09-02 16:52] LABS: INR 0.91 (0.8-1.2); Partial Thromboplastin Time 24.4 SECONDS (23.9-36.7)
[2022-09-02 17:02] LABS: Alanine Aminotransferase 29 U/L (0-33); Albumin Level 4.1 g/dL (3.5-5.2); Alkaline Phosphatase 141 U/L (35-105); Aspartate Amino Transferase 31 U/L (0-32); Blood Urea Nitrogen 5 mg/dL (6-20); Calcium 9.2 mg/dL (8.5-10.5); Carbon Dioxide 32 mmol/L (22-29); Chloride 98 mmol/L (98-107); Globulin 2.7 g/dL (1.3-4.6); Glomerular Filtration Rate 163.4 mL/min (90-130); Glucose 112 mg/dL (65-115); Osmolality Calculated 286 mOsm/kg (285-295); Sodium 139 mmol/L (136-145); Total Bilirubin 0.6 mg/dL (0.15-1.2); Total Protein 6.8 g/dL (6.6-8.7)
[2022-09-02 18:34] VITALS: BP 155/77; PULSE 60; RESP 21; TEMP 36.6; O2SAT 97
== END 2022-09-02 18:30 | disposition home or self-care (01) ==
PROVIDERS: Emergency Provider Emergency Medicine; PCP Nurse Practitioner Family
DX: K52.9 Noninfective gastroenteritis and colitis, unspecified (principal)
CPT/HCPCS: 80053; 85025; 85610; 85730; 99284; J7120

== ENCOUNTER 2022-10-12 15:25 | Emergency (ER) | payer MEDICARE, MEDICAID, SELFPAY ==
[2020-07-18 17:32] VITALS: BP 115/65; BMI 41.0
--- NOTE | 2022-10-12 15:35 | XR_ITS ---
WS: [id number] PORTABLE CHEST HISTORY: dyspnea/cough COMPARISON: 11/16/2021 Marked pulmonary hyperinflation from emphysema. No pneumonia. Chronic emphysematous changes. No pleural effusion or pneumothorax. Cardiac size: Moderately enlarged cardiac silhouette. Mediastinum/Aorta: Normal mediastinum. No osseous abnormality seen. XR/XR chest 1V portable [id number] IMPRESSION: Chronic emphysema and cardiomegaly. No pneumonia.
[2022-10-12 15:47] VITALS: PULSE 83; RESP 14; O2SAT 96; BMI 40.3
--- NOTE | 2022-10-12 16:04 | ED_ITS ---
HPI - SOB/Dyspnea General: Chief Complaint: Shortness of Breath/Dyspnea Stated Complaint: SOB Time Seen by Provider: 10/12/22 15:34 Source: patient Mode of arrival: ambulatory History of Present Illness: HPI Narrative: 57-year-old female presents emergency room planing of cough and congestion for the last couple weeks progressively worsening cough has been minimally productive she is normally on 3 L/min by nasal cannula. On arrival here she is still able to manage normal sats on 3 L/min nurse relate a low-grade fever blood pressure on the monitor was mildly hypotensive when I seen the patient. Chapis madhavi RANGEL elicited complaint: shortness of breath and cough Pertinent past history: COPD and congestive heart failure Onset (ago): minute(s) Timing: constant Severity: moderate Exacerbating factors: nothing Relieving factors: nothing Known history of: COPD Associated symptoms: Deny abdominal pain, chest congestion, chest pain, cough, diaphoresis, dizziness, extremity pain, fever(s), hemoptysis, lightheadedness, myalgias, nausea, orthopnea, palpitations, paresthesias, polydipsia, polyuria, rash, sense of impending doom, syncope or vomiting Treatment prior to arrival: none Review of Systems Const: Reports: fatigue and malaise; Denies: fever(s), chills or diaphoresis ENMT: Denies: throat pain, ear or mastoid pain, nasal discharge or nasal congestion Card: Denies: chest pain, palpitations, edema, lightheadedness, syncope or orthopnea Resp: Reports: dyspnea and non-productive cough; Denies: hemoptysis or chest congestion GI: Denies: abdominal pain, nausea or vomiting : Denies: flank pain, difficulty voiding, dysuria, urinary frequency or urinary urgency Musc: Denies: extremity pain Skin/Breast: Denies: rash or pruritus Neuro: Denies: dizziness Endo: Denies: polyuria or polydipsia PFSH ED PFSH: Medical History Acute exacerbation of chronic obstructive airways disease Acute hypercapnic respiratory failure Acute on chronic respiratory failure with hypoxemia Anxiety and depression Bilateral pulmonary embolism -on AC with Eliquis Bipolar 2 disorder Chronic pain Chronic post-traumatic stress disorder (PTSD) COPD (chronic obstructive pulmonary disease) Chronic COPD. Chronic smoking. She is aware of the risks of cigarette smoking with COPD. Fracture of distal end of right fibula GERD (gastroesophageal reflux disease) Hepatitis C virus infection cured after antiviral drug therapy Hyperlipidemia Hypertension Hypothyroidism Insomnia Non-insulin dependent type 2 diabetes mellitus Obstructive sleep apnea Ovarian cyst Pneumonia Psychiatric care Spinal stenosis Tobacco use disorder, continuous Surgical History H/O section Status post left foot surgery Family History Mother Cancer Breast cancer Social History Smoking and tobacco status: never smoked Quit status (tobacco): considering quitting Second hand smoke exposure: No Alcohol intake: never Counseling given: No Last substance use date: 10/26/19 Household members: children Current occupational status: unemployed History of recent travel: No Physical Exam Const: GENERAL APPEARANCE: cooperative and comfortable ORIENTATION/CONSCIOUSNESS: Yes awake, Yes oriented to person, Yes oriented to place and Yes oriented to time HENMT: COMMON NORMALS: normocephalic, atraumatic and hearing grossly normal bilaterally HEAD & SCALP: normocephalic and atraumatic Resp: COMMON NORMALS: normal respiratory effort, No retractions and No use of accessory muscles AUSCULTATION: rhonchi and wheezes Cardio: COMMON NORMALS: regular rate, regular rhythm and No murmurs present (Cardio) RATE: regular rate RHYTHM: regular rhythm GI: COMMON NORMALS: Soft to palpation and No hepatosplenomegaly present AUSCULTATION: Yes normoactive bowel sounds PALPATION: Yes Soft to palpation, No Tenderness to palpation present (GI), No Guarding due to palpation present (GI) and Yes No hepatosplenomegaly present Extremity: COMMON NORMALS: normal to inspection, capillary refill normal, no clubbing, cyanosis or edema, no calf tenderness and no pedal edema Neuro: SENSORIUM/ORIENTATION: Yes oriented to person, Yes oriented to place and Yes oriented to time Skin: COMMON NORMALS: no rashes or lesions noted GENERAL SKIN EXAM: no r ashes or lesions noted WOUNDS: No surgical site Course Vital Signs: Vital signs: Vital Signs Pulse Rate 84 10/12/22 16:42 Respiratory Rate 16 10/12/22 16:37 Pulse Oximetry 95 10/12/22 16:37 Oxygen Delivery Me thod 10/12/22 16:37 Oxygen Flow Rate 3 10/12/22 16:37 MDM - SOB/Dyspnea Medical Decision Making No acute infiltrate. Air exchange improved after DuoNeb treatment. Chest x-ray no pneumonia COVID-negative discharge patient home steroid taper doxycycline because length times symptoms aggressive use of albuterol ipratropium and nebulizers every 4 hours while awake. If not improving recheck with primary care Medical Records I reviewed the patient's medical records. Lab Data I reviewed the patient's lab results. 10/12/22 16:05 10/12/22 16:05 Labs/Radiology: Radiology Impressions Chest X-Ray 10/12/22 15:35 IMPRESSION: Chronic emphysema and cardiomegaly. No pneumonia. Laboratory Results WBC 5.0 10^3/uL (4.0-10.0) 10/12/22 16:05 RBC 4.41 10^6/uL (4.1-5.3) 10/12/22 16:05 Hgb 13.6 g/dL (11.5-15.3) 10/12/22 16:05 Hct 42.3 % (37.0-47.0) 10/12/22 16:05 MCV 95.9 fl (81-99) 10/12/22 16:05 MCH 30.8 pg (28.0-34.0) 10/12/22 16:05 MCHC 32.2 g/dL (30.0-36.0) 10/12/22 16:05 RDW 13.1 % (12.1-15.1) 10/12/22 16:05 Plt Count 186 10^3/cmm (130-400) 10/12/22 16:05 MPV 9.8 fL (7.4-10.4) 10/12/22 16:05 Neut % (Auto) 85.9 % 10/12/22 16:05 Lymph % (Auto) 6.0 % 10/12/22 16:05 [place] % (Auto) 7.3 % 10/12/22 16:05 Eos % (Auto) 0.2 % 10/12/22 16:05 Baso % (Auto) 0.4 % 10/12/22 16:05 Neut # (Auto) 4.33 10^3/uL (1.8-7.7) 10/12/22 16:05 Lymph # (Auto) 0.3 10^3/uL (0.8-4.8) L 10/12/22 16:05 [place] # (Auto) 0.4 10^3/uL (0.2-0.9) 10/12/22 16:05 Eos # (Auto) 0.0 10^3/uL (0.0-0.8) 10/12/22 16:05 Baso # (Auto) 0.0 10^3/uL (0.0-0.1) 10/12/22 16:05 Nucleated RBC % (auto) 0 % 10/12/22 16:05 Nucleated RBCs # 0.0 /100WBC 10/12/22 16:05 Sodium 136 mmol/L (136-145) 10/12/22 16:05 Potassium 3.7 mmol/L (3.5-5.1) 10/12/22 16:05 Chloride 96 mmol/L (98-107) L 10/12/22 16:05 Carbon Dioxide 33 mmol/L (22-29) H 10/12/22 16:05 Anion Gap 10.7 (5-19) 10/12/22 16:05 BUN 5 mg/dL (6-20) L 10/12/22 16:05 Creatinine 0.4 mg/dL (0.5-0.9) L 10/12/22 16:05 GFR Calculation 163.4 mL/min (90-130) H 10/12/22 16:05 Glucose 80 mg/dL (65-115) 10/12/22 16:05 Calculated Osmolality 278 mOsm/kg (285-295) L 10/12/22 16:05 Calcium 9.3 mg/dL (8.5-10.5) 10/12/22 16:05 Total Bilirubin 0.4 mg/dL (0.15-1.2) 10/12/22 16:05 AST 16 U/L (0-32) 10/12/22 16:05 ALT 39 U/L (0-33) H 10/12/22 16:05 Alkaline Phosphatase 106 U/L (35-105) H 10/12/22 16:05 Total Protein 6.8 g/dL (6.6-8.7) 10/12/22 16:05 Albumin 4.0 g/dL (3.5-5.2) 10/12/22 16:05 Globulin 2.8 g/dL (1.3-4.6) 10/12/22 16:05 SARS-CoV-2 Ag (Rapid) negative (Negative) 10/12/22 17:00 Discharge Plan Discharge Patient Disposition: Home Clinical Impression: Acute exacerbation of chronic obstructive airways disease Condition: Stable Prescriptions: New doxycycline hyclate 100 mg capsule 100 mg PO BID 10 Days Qty: 20 0RF prednisone 20 mg tablet 20 mg PO TID Qty: 15 0RF Rx Instructions: 1 p.o. 3 times daily x3 days, 1 p.o. twice daily x2 days, 1 p.o. daily x2 days ipratropium-albuterol 0.5 mg-3 mg(2.5 mg base)/3 mL solution for nebulization 3 ml inhalation Q4H PRN (Reason: shortness of breath or wheezing) Qty: 180 0RF Rx Instructions: until breathing returns to target peak flow/parameters No Action [facility] Aerosphere 160-9-4.8 mcg/actuation HFA aerosol inhaler 2 inh inhalation BID Qty: 10.7 3RF Eliquis 5 mg tablet 5 mg PO BID modafinil [Provigil] 200 mg tablet 200 mg PO BID Qty: 30 5RF duloxetine [Cymbalta] 60 mg capsule,delayed release(DR/EC) 120 mg PO QAM Qty: 60 1RF Rx Instructions: Take two capsules by mouth every morning lamotrigine 100 mg tablet 100 mg PO BID Qty: 60 2RF Rx Instructions: Take one tablet by mouth every morning and at bedtime quetiapine 150 mg tablet extended release 24 hr 150 mg PO BEDTIME Qty: 30 1RF Rx Instructions: Take one tablet daily by mouth at bedtime trazodone 50 mg tablet 50 mg PO DAILY PRN (Reason: insomnia) Qty: 30 1RF Rx Instructions: Take one tablet daily at bedtime, if needed for insomnia (DME) cam boot See Rx Instructions .Route .MEDSUPPLY Qty: 1 0RF Rx Instructions: As directed (DME) CPAP Machine/Supplies See Rx Instructions .Route .MEDSUPPLY Qty: 1 0RF Rx Instructions: Order for CPAP Machine and Supplies (DME) CPAP w/Humidifier, Headgear See Rx Instructions .Route .MEDSUPPLY Qty: 1 0RF Rx Instructions: As directed ipratropium-albuterol 0.5 mg-3 mg(2.5 mg base)/3 mL solution for nebulization 3 ml inhalation Q6H PRN (Reason: wheezing) Qty: 90 3RF montelukast 10 mg tablet 10 mg PO DAILY albuterol sulfate 90 mcg/actuation HFA aerosol inhaler 2 inh INHALATION Q4H PRN (Reason: shortness of breath or wheezing) Qty: 18 0RF omeprazole 40 mg Capsule,Delayed Release(Dr/Ec) 40 mg PO DAILY gabapentin 300 mg Capsule 300 mg PO TID acetaminophen [Tylenol Ex Str Rapid Release] 500 mg Tablet 1,500 mg PO Q4H PRN (Reason: Pain) ibuprofen 200 mg Tablet 600 mg PO Q4H PRN (Reason: Pain) dicyclomine 10 mg Capsule 10 mg PO QID PRN (Reason: Cramps) Spiriva Respimat 2.5 mcg/actuation Mist 2 puff INHALATION QAM levothyroxine 100 mcg tablet 100 mcg PO DAILY magnesium citrate Solution 270 ml PO DAILY Qty: 296 0RF Levsin 0.125 mg tablet 0.125 mg PO Q4H PRN (Reason: dyspepsia) Qty: 30 0RF Discharge Orders: Discharge ED (Routine); Ordered 10/12/22 Ordered By: Jason Beaulieu Referrals: Lan,Tayler, CANE PACKER [Primary Care Provider] - Discharge Diet: Usual diet Discharge Activity: Increase activity as tolerated Patient Instructions: Opioid Safety, Pain Management Activity Restrictions/Additional Instructions: You are seen today for difficulty breathing. Your chest x-ray was clear. COVID test is pending we will contact you with the results. Recommend that you start the steroid taper and the doxycycline. You should use albuterol every 4 hours while awake as needed for shortness of breath or wheezing. You may use Tylenol or ibuprofen for aches and pains. Coding Level of Care Code ED Private Tutor for Chg Fwd Exam Detailed
--- NOTE | 2022-10-12 16:10 | ECG_ITS ---
[facility] Test Date: 2022-10-12 Pat Name: Tomeka Marshall Department: Room: Gender: Female Equipment Analyst: : 1965 Requested By: Jason Ge Order Number: [id number] Umer MD: Eliza Paul M.D. Measurements Intervals [place] Rate: 75 P: 74 MA: 170 QRS: 94 QRSD: 100 T: 85 QT: 373 QTc: 417 Interpretive Statements SINUS RHYTHM BORDERLINE RIGHT AXIS DEVIATION [QRS AXIS > 90] POSSIBLE ANTERIOR MYOCARDIAL INFARCTION , OF INDETERMINATE AGE [30 ms Q WAVE IN V3/V4, OR R < 0.2 mV IN V4] Compared to ECG 11/16/2021 10:57:19 Myocardial infarct finding now present Electronically Signed On 10-12-2022 17:33:15 CONTENT MANAGEMENT CONSULTANT by Eliza Paul M.D. [id number]
[2022-10-12 16:18] LABS: Basophils % 0.4 %; Eosinophils % 0.2 %; Hematocrit 42.3 % (37.0-47.0); Hemoglobin 13.6 g/dL (11.5-15.3); Lymphocytes # 0.3 10^3/uL (0.8-4.8); Mean Corpuscular HGB Conc 32.2 g/dL (30.0-36.0); Mean Corpuscular Hemoglobin 30.8 pg (28.0-34.0); Mean Corpuscular Volume 95.9 fl (81-99); Mean Platelet Volume 9.8 fL (7.4-10.4); Monocytes # 0.4 10^3/uL (0.2-0.9); Monocytes % 7.3 %; Neutrophils # 4.33 10^3/uL (1.8-7.7); Neutrophils % 85.9 %; Nucleated Red Blood Cells % 0 %; Platelet Count 186 10^3/cmm (130-400); Red Blood Count 4.41 10^6/uL (4.1-5.3); Red Cell Distribution Width 13.1 % (12.1-15.1)
[2022-10-12 16:37] VITALS: PULSE 94; RESP 16; O2SAT 95
[2022-10-12] MEDS: ipratropium-albuterol 3 mL Neb INHALATION (16:37)
[2022-10-12 16:39] LABS: Alanine Aminotransferase 39 U/L (0-33); Alkaline Phosphatase 106 U/L (35-105); Anion Gap 10.7 (5-19); Aspartate Amino Transferase 16 U/L (0-32); Blood Urea Nitrogen 5 mg/dL (6-20); Calcium 9.3 mg/dL (8.5-10.5); Carbon Dioxide 33 mmol/L (22-29); Chloride 96 mmol/L (98-107); Globulin 2.8 g/dL (1.3-4.6); Glomerular Filtration Rate 163.4 mL/min (90-130); Glucose 80 mg/dL (65-115); Osmolality Calculated 278 mOsm/kg (285-295); Potassium 3.7 mmol/L (3.5-5.1); Sodium 136 mmol/L (136-145); Total Bilirubin 0.4 mg/dL (0.15-1.2); Total Protein 6.8 g/dL (6.6-8.7)
[2022-10-12 16:42] VITALS: PULSE 84
[2022-10-12 17:20] VITALS: BP 163/100; TEMP 37.4
--- NOTE | 2022-10-12 17:41 | PC.NURSE ---
Patient received an 20g iv on her KAM, which was then pulled out less than 10 minutes later. This nurse was able to obtain labs and used one flush.
[2022-10-12 17:51] LABS: SARS Covid-2 Antigen negative (Negative)
== END 2022-10-12 17:45 | disposition home or self-care (01) ==
PROVIDERS: Emergency Provider Family Medicine; PCP Nurse Practitioner Family
DX: J44.1 Chronic obstructive pulmonary disease with (acute) exacerbation (principal); Z79.01 Long term (current) use of anticoagulants; Z20.822 Contact with and (suspected) exposure to COVID-19; Z86.19 Personal history of other infectious and parasitic diseases; E78.5 Hyperlipidemia, unspecified; I10 Essential (primary) hypertension; E11.9 Type 2 diabetes mellitus without complications
CPT/HCPCS: 71045; 80053; 85025; 87426; 93005; 94640; 96374; 99285; J2930

== ENCOUNTER 2022-10-13 07:04 | Emergency (ER) | payer MEDICARE, MEDICAID, SELFPAY ==
[2020-07-18 17:32] VITALS: BP 115/65; BMI 41.0
[2022-10-13] VITALS (8 sets, daily range): BP systolic 134–163; BP diastolic 81–107; PULSE 72–94; RESP 18–25; TEMP 36.7; O2SAT 87–98
--- NOTE | 2022-10-13 07:10 | XRR_ITS ---
PROCEDURE INFORMATION: Exam: XR Chest Exam date and time: 10/13/2022 7:30 AM Age: 57 years old Clinical indication: Cough and dyspnea; Additional info: Dyspnea/cough TECHNIQUE: Imaging protocol: Radiologic exam of the chest. Views: 1 view. COMPARISON: CR XR chest 1V portable [id number] 10/12/2022 3:39 PM FINDINGS: Lungs: Unremarkable. No consolidation. Pleural spaces: Unremarkable. No pleural effusion. No pneumothorax. Heart/Mediastinum: Unremarkable. No cardiomegaly. Bones/joints: Unremarkable. XR/XR chest 1V portable [id number] IMPRESSION: No acute findings.
--- NOTE | 2022-10-13 07:18 | W.ED.SOB ---
HPI - SOB/Dyspnea General: Chief Complaint: Shortness of Breath/Dyspnea Stated Complaint: SOB Time Seen by Provider: 10/13/22 07:10 Source: patient Mode of arrival: EMS History of Present Illness: HPI Narrative: 87-year-old female who returns to the emergency room complaining of shortness of breath. She was seen late yesterday afternoon given nebulizers and steroids. Flu and COVID swabs were negative her white count was 5000 with a normal hemoglobin. She was mildly over oxygenated and retaining when she first arrived and she was changed back to 3 L by nasal cannula which improved. She was discharged home in good condition advised to start steroids placed on a course of doxycycline and given duo nebs to use every 4 hours while awake. She has not had a nebulizer treatment since she left the emergency room approximately 13 or 14 hours ago. She has not gotten her steroids. Presents emergency room on 10 L by simple mask when changed to nasal cannula at 3 L to maintain oxygen sats at 95%. She states she has been sick for the last 2 weeks with a mildly productive cough. Normally she is on 3 L by nasal cannula. MD elicited complaint: shortness of breath and cough Pertinent past history: COPD Onset (ago): hour(s) Timing: constant Severity: mild Exacerbating factors: exertion Relieving factors: bronchodilators Known history of: COPD Associated symptoms: Reports rash; Deny abdominal pain, chest congestion, chest pain, cough, diaphoresis, dizziness, extremity pain, fever(s), hemoptysis, lightheadedness, myalgias, nausea, orthopnea, palpitations, paresthesias, polydipsia, polyuria, sense of impending doom, syncope or vomiting Treatment prior to arrival: oxygen, bronchodilator and other (Nebulized dexamethasone) Related Data: Home oxygen amount: 3 liters Review of Systems Const: Denies: fever(s), chills, fatigue, malaise or diaphoresis ENMT: Denies: throat pain, ear or mastoid pain, nasal discharge or nasal congestion Card: Denies: chest pain, palpitations, lightheadedness, syncope or orthopnea Resp: Reports: dyspnea, non-productive cough and wheezing; Denies: hemoptysis or chest congestion GI: Denies: abdominal pain, nausea or vomiting : Denies: flank pain, difficulty voiding, dysuria, urinary frequency or urinary urgency Musc: Denies: extremity pain Skin/Breast: Denies: rash or pruritus Neuro: Denies: dizziness Endo: Denies: polyuria or polydipsia PFSH ED PFSH: Medical History Acute exacerbation of chronic obstructive airways disease Acute hypercapnic respiratory failure Acute on chronic respiratory failure with hypoxemia Anxiety and depression Bilateral pulmonary embolism -on AC with Eliquis Bipolar 2 disorder Chronic pain Chronic post-traumatic stress disorder (PTSD) COPD (chronic obstructive pulmonary disease) Chronic COPD. Chronic smoking. She is aware of the risks of cigarette smoking with COPD. Fracture of distal end of right fibula GERD (gastroesophageal reflux disease) Hepatitis C virus infection cured after antiviral drug therapy Hyperlipidemia Hypertension Hypothyroidism Insomnia Non-insulin dependent type 2 diabetes mellitus Obstructive sleep apnea Ovarian cyst Pneumonia Psychiatric care Spinal stenosis Tobacco use disorder, continuous Surgical History H/O section Status post left foot surgery Family History Mother Cancer Breast cancer Social History Smoking and tobacco status: never smoked Quit status (tobacco): considering quitting Second hand smoke exposure: No Alcohol intake: never Counseling given: No Last substance use date: 10/26/19 Household members: children Current occupational status: unemployed History of recent travel: No Physical Exam Const: ORIENTATION/CONSCIOUSNESS: Yes awake, Yes oriented to person, Yes oriented to place and Yes oriented to time HENMT: COMMON NORMALS: normocephalic, atraumatic and hearing grossly normal bilaterally HEAD & SCALP: normocephalic and atraumatic Resp: AUSCULTATION: wheezes Cardio: COMMON NORMALS: regular rate, regular rhythm and No murmurs present (Cardio) RATE: regular rate RHYTHM: regular rhythm GI: COMMON NORMALS: Soft to palpation and No hepatosplenomegaly present AUSCULTATION: Yes normoactive bowel sounds PALPATION: Yes Soft to palpation, No Tenderness to palpation present (GI), No Guarding due to palpation present (GI) and Yes No hepatosplenomegaly present Extremity: COMMON NORMALS: normal to inspection, capillary refill normal, no clubbing, cyanosis or edema, no calf tenderness and no pedal edema Neuro: SENSORIUM/ORIENTATION: Yes oriented to person, Yes oriented to place and Yes oriented to time Skin: COMMON NORMALS: no rashes or lesions noted GENERAL SKIN EXAM: no rashes or lesions noted Course Vital Signs: Vital signs: Vital Signs Temperature 98.1 F 10/13/22 07:06 Pulse Rate 80 10/13/22 09:33 Respiratory Rate 18 10/13/22 09:33 Blood Pressure 151/85 10/13/22 09:33 Pulse Oximetry 97 10/13/22 09:33 Oxygen Delivery Me thod 10/13/22 09:00 Oxygen Flow Rate 3 10/13/22 09:00 MDM - SOB/Dyspnea Medical Decision Making Patient resting comfortably after nebulizers that she is well oxygenated on 3 L she is not having any respiratory distress. She is not tachycardic she is afebrile chest x-ray is unremarkable. She had not filled any of the medications we prescribed yesterday discussed with her the importance of filling these and taking regularly her brother is coming to pick her up for reprinting her prescription from yesterday so that we can give them to her brother and have them filled before she leaves. Mary Ann with her all the results including her EKG testing done from yesterday and today she is completely stable at this time. There is no indication for admission. Medical Records I reviewed the patient's medical records. Lab Data I reviewed the patient's lab results. 10/13/22 07:28 10/13/22 07:28 Labs/Radiology: Radiology Impressions Chest X-Ray 10/13/22 07:10 IMPRESSION: No acute findings. Laboratory Results WBC 3.5 10^3/uL (4.0-10.0) L 10/13/22 07:28 RBC 4.56 10^6/uL (4.1-5.3) 10/13/22 07:28 Hgb 14.0 g/dL (11.5-15.3) 10/13/22 07:28 Hct 43.6 % (37.0-47.0) 10/13/22 07:28 MCV 95.6 fl (81-99) 10/13/22 07:28 MCH 30.7 pg (28.0-34.0) 10/13/22 07:28 MCHC 32.1 g/dL (30.0-36.0) 10/13/22 07:28 RDW 13.2 % (12.1-15.1) 10/13/22 07:28 Plt Count 196 10^3/cmm (130-400) 10/13/22 07:28 MPV 10.7 fL (7.4-10.4) H 10/13/22 07:28 Neut % (Auto) 79.8 % 10/13/22 07:28 Lymph % (Auto) 8.2 % 10/13/22 07:28 [place] % (Auto) 9.4 % 10/13/22 07:28 Eos % (Auto) 1.7 % 10/13/22 07:28 Baso % (Auto) 0.3 % 10/13/22 07:28 Neut # (Auto) 2.81 10^3/uL (1.8-7.7) 10/13/22 07:28 Lymph # (Auto) 0.3 10^3/uL (0.8-4.8) L 10/13/22 07:28 [place] # (Auto) 0.3 10^3/uL (0.2-0.9) 10/13/22 07:28 Eos # (Auto) 0.1 10^3/uL (0.0-0.8) 10/13/22 07:28 Baso # (Auto) 0.0 10^3/uL (0.0-0.1) 10/13/22 07:28 Nucleated RBC % (auto) 0 % 10/13/22 07: Nucleated RBCs # 0.0 /100WBC 10/13/22 07:28 Sodium 138 mmol/L (136-145) 10/13/22 07:28 Potassium 4.2 mmol/L (3.5-5.1) 10/13/22 07:28 Chloride 98 mmol/L (98-107) 10/13/22 07:28 Carbon Dioxide 31 mmol/L (22-29) H 10/13/22 07:28 Anion Gap 13.2 (5-19) 10/13/22 07:28 BUN 7 mg/dL (6-20) 10/13/22 07:28 Creatinine 0.4 mg/dL (0.5-0.9) L 10/13/22 07:28 GFR Calculation 163.4 mL/min (90-130) H 10/13/22 07:28 Glucose 99 mg/dL (65-115) 10/13/22 07:28 Calculated Osmolality 284 mOsm/kg (285-295) L 10/13/22 07:28 Calcium 9.2 mg/dL (8.5-10.5) 10/13/22 07:28 Total Bilirubin 0.3 mg/dL (0.15-1.2) 10/13/22 07:28 AST 18 U/L (0-32) 10/13/22 07:28 ALT 36 U/L (0-33) H 10/13/22 07:28 Alkaline Phosphatase 108 U/L (35-105) H 10/13/22 07:28 Total Protein 7.0 g/dL (6.6-8.7) 10/13/22 07:28 Albumin 3.9 g/dL (3.5-5.2) 10/13/22 07:28 Globulin 3.1 g/dL (1.3-4.6) 10/13/22 07:28 Discharge Plan Discharge Patient Disposition: Home Clinical Impression: Acute exacerbation of chronic obstructive airways disease Condition: Stable Prescriptions: New doxycycline hyclate 100 mg capsule 100 mg PO BID 10 Days Qty: 20 0RF prednisone 20 mg tablet 20 mg PO TID Qty: 15 0RF Rx Instructions: 1 p.o. 3 times daily x3 days, 1 p.o. twice daily x2 days, 1 p.o. daily x2 days ipratropium-albuterol 0.5 mg-3 mg(2.5 mg base)/3 mL solution for nebulization 3 ml inhalation Q4H PRN (Reason: shortness of breath or wheezing) Qty: 180 0RF Rx Instructions: until breathing returns to target peak flow/parameters Discontinued doxycycline hyclate 100 mg capsule 100 mg PO BID 10 Days Qty: 20 0RF prednisone 20 mg tablet 20 mg PO TID Qty: 15 0RF Rx Instructions: 1 p.o. 3 times daily x3 days, 1 p.o. twice daily x2 days, 1 p.o. daily x2 days ipratropium-albuterol 0.5 mg-3 mg(2.5 mg base)/3 mL solution for nebulization 3 ml inhalation Q4H PRN (Reason: shortness of breath or wheezing) Qty: 180 0RF Rx Instructions: until breathing returns to target peak flow/parameters No Action [facility] Aerosphere 160-9-4.8 mcg/actuation HFA aerosol inhaler 2 inh inhalation BID Qty: 10.7 3RF Eliquis 5 mg tablet 5 mg PO BID modafinil [Provigil] 200 mg tablet 200 mg PO BID Qty: 30 5RF duloxetine [Cymbalta] 60 mg capsule,delayed release(DR/EC) 120 mg PO QAM Qty: 60 1RF Rx Instructions: Take two capsules by mouth every morning lamotrigine 100 mg tablet 100 mg PO BID Qty: 60 2RF Rx Instructions: Take one tablet by mouth every morning and at bedtime quetiapine 150 mg tablet extended release 24 hr 150 mg PO BEDTIME Qty: 30 1RF Rx Instructions: Take one tablet daily by mouth at bedtime trazodone 50 mg tablet 50 mg PO DAILY PRN (Reason: insomnia) Qty: 30 1RF Rx Instructions: Take one tablet daily at bedtime, if needed for insomnia (DME) cam boot See Rx Instructions .Route .MEDSUPPLY Qty: 1 0RF Rx Instructions: As directed (DME) CPAP Machine/Supplies See Rx Instructions .Route .MEDSUPPLY Qty: 1 0RF Rx Instructions: Order for CPAP Machine and Supplies (DME) CPAP w/Humidifier, Headgear See Rx Instructions .Route .MEDSUPPLY Qty: 1 0RF Rx Instructions: As directed ipratropium-albuterol 0.5 mg-3 mg(2.5 mg base)/3 mL solution for nebulization 3 ml inhalation Q6H PRN (Reason: wheezing) Qty: 90 3RF montelukast 10 mg tablet 10 mg PO DAILY albuterol sulfate 90 mcg/actuation HFA aerosol inhaler 2 inh INHALATION Q4H PRN (Reason: shortness of breath or wheezing) Qty: 18 0RF omeprazole 40 mg Capsule,Delayed Release(Dr/Ec) 40 mg PO DAILY gabapentin 300 mg Capsule 300 mg PO TID acetaminophen [Tylenol Ex Str Rapid Release] 500 mg Tablet 1,500 mg PO Q4H PRN (Reason: Pain) ibuprofen 200 mg Tablet 600 mg PO Q4H PRN (Reason: Pain) dicyclomine 10 mg Capsule 10 mg PO QID PRN (Reason: Cramps) Spiriva Respimat 2.5 mcg/actuation Mist 2 puff INHALATION QAM levothyroxine 100 mcg tablet 100 mcg PO DAILY magnesium citrate Solution 270 ml PO DAILY Qty: 296 0RF Levsin 0.125 mg tablet 0.125 mg PO Q4H PRN (Reason: dyspepsia) Qty: 30 0RF Discharge Orders: Discharge ED (Routine); Ordered 10/13/22 Ordered By: Jason Beaulieu Referrals: Lan,Tayler, HEALTH PROMOTION COORDINATOR [Primary Care Provider] - Discharge Diet: Usual diet Discharge Activity: Limit activity as instructed Patient Instructions: Opioid Safety, Pain Management Activity Restrictions/Additional Instructions: You were seen again today for exacerbation of COPD. Is very important that you start the steroid taper this evening and use the albuterol ipratropium nebulizers every 4 hours while awake and as needed during the night. All of your prescription from yesterday were reprinted so that you could get them filled before you went home today. Continue your oxygen at 3 L/min. Follow-up with your doctor next week if you are not improving. Coding Level of Care Code ED Shape Brick Molder for Parmjit Fwd Exam Detailed
[2022-10-13] MEDS: ipratropium-albuterol 3 mL Neb 6 ML INHALATION (07:28)
--- NOTE | 2022-10-13 07:35 | PC.NURSE ---
pt placed on continuous nibp, spo2, and cm
[2022-10-13 07:36] LABS: Basophils % 0.3 %; Eosinophils # 0.1 10^3/uL (0.0-0.8); Eosinophils % 1.7 %; Hematocrit 43.6 % (37.0-47.0); Lymphocytes # 0.3 10^3/uL (0.8-4.8); Lymphocytes % 8.2 %; Mean Corpuscular HGB Conc 32.1 g/dL (30.0-36.0); Mean Corpuscular Hemoglobin 30.7 pg (28.0-34.0); Mean Corpuscular Volume 95.6 fl (81-99); Mean Platelet Volume 10.7 fL (7.4-10.4); Monocytes # 0.3 10^3/uL (0.2-0.9); Monocytes % 9.4 %; Neutrophils # 2.81 10^3/uL (1.8-7.7); Neutrophils % 79.8 %; Nucleated Red Blood Cells % 0 %; Platelet Count 196 10^3/cmm (130-400); Red Blood Count 4.56 10^6/uL (4.1-5.3); Red Cell Distribution Width 13.2 % (12.1-15.1); White Blood Count 3.5 10^3/uL (4.0-10.0)
--- NOTE | 2022-10-13 07:54 | ECG_ITS ---
[facility] Test Date: 2022-10-13 Pat Name: Tomeka Marshall Department: Room: Gender: Female Councilman: : 1965 Requested By: Jason Ge Order Number: [id number] Umer MD: Eliza Paul M.D. Measurements Intervals [place] Rate: 67 P: 69 DC: 172 QRS: 88 QRSD: 104 T: 82 QT: 400 QTc: 424 Interpretive Statements SINUS RHYTHM POSSIBLE ANTERIOR MYOCARDIAL INFARCTION , OF INDETERMINATE AGE [30 ms Q WAVE IN V3/V4, OR R < 0.2 mV IN V4] Compared to ECG 10/12/2022 16:10:10 No significant changes Electronically Signed On 10-13-2022 10:54:19 STAPLE [employer]IDE LA[employer] by Eliza Paul M.D. [id number]
[2022-10-13 07:55] LABS: Alanine Aminotransferase 36 U/L (0-33); Albumin Level 3.9 g/dL (3.5-5.2); Alkaline Phosphatase 108 U/L (35-105); Aspartate Amino Transferase 18 U/L (0-32); Blood Urea Nitrogen 7 mg/dL (6-20); Calcium 9.2 mg/dL (8.5-10.5); Carbon Dioxide 31 mmol/L (22-29); Chloride 98 mmol/L (98-107); Globulin 3.1 g/dL (1.3-4.6); Glomerular Filtration Rate 163.4 mL/min (90-130); Glucose 99 mg/dL (65-115); Osmolality Calculated 284 mOsm/kg (285-295); Sodium 138 mmol/L (136-145); Total Bilirubin 0.3 mg/dL (0.15-1.2)
[2022-10-13 08:06] LABS: Anion Gap 13.2 (5-19); Potassium 4.2 mmol/L (3.5-5.1)
== END 2022-10-13 10:00 | disposition home or self-care (01) ==
PROVIDERS: Emergency Provider Family Medicine; PCP Nurse Practitioner Family
DX: J44.1 Chronic obstructive pulmonary disease with (acute) exacerbation (principal); Z79.01 Long term (current) use of anticoagulants; Z86.19 Personal history of other infectious and parasitic diseases; E78.5 Hyperlipidemia, unspecified; I10 Essential (primary) hypertension; E11.9 Type 2 diabetes mellitus without complications
CPT/HCPCS: 71045; 80053; 85025; 93005; 94640; 96372; 99285; J2930

== ENCOUNTER 2022-10-23 22:51 | Emergency (ER) | payer MEDICARE, MEDICAID, SELFPAY ==
[2020-07-18 17:32] VITALS: BP 115/65; BMI 41.0
[2022-10-23 22:58] VITALS: BP 164/85; PULSE 81; RESP 20; TEMP 36.8; O2SAT 94; BMI 37.3
--- NOTE | 2022-10-23 23:06 | XRR_ITS ---
PROCEDURE INFORMATION: Exam: XR Chest Exam date and time: 10/23/2022 11:09 PM Age: 57 years old Clinical indication: Shortness of breath; Patient HX: C/O cough with SOB. History of copd. TECHNIQUE: Imaging protocol: Radiologic exam of the chest. Views: 1 view. COMPARISON: CR XR chest 1V portable [id number] 10/13/2022 7:30 AM FINDINGS: Lungs: Hyperaerated lungs consistent with deep inspiratory effort vs significant reactive airway disease vs [id number] COPD . Mild right basilar bronchopneumonia. Pleural spaces: Unremarkable. No pleural effusion. No pneumothorax. Heart/Mediastinum: Unremarkable. No cardiomegaly. Bones/joints: Mild levoscoliosis. XR/XR chest 1V portable [id number] IMPRESSION: 1. Hyperaerated lungs consistent with deep inspiratory effort vs significant reactive airway disease vs [id number] COPD . 2. Mild right basilar bronchopneumonia.
--- NOTE | 2022-10-23 23:07 | ED_ITS ---
HPI - SOB/Dyspnea General: Chief Complaint: Shortness of Breath/Dyspnea Stated Complaint: RESP. DISTRESS Time Seen by Provider: 10/23/22 22:53 Source: patient and EMS Mode of arrival: EMS Limitations: no limitations History of Present Illness: HPI Narrative: 57-year-old female has a chronic history of COPD she is on 3 L oxygen at baseline she states that she has been having shortness of breath for last 10 days she was seen here last week she states she had no improvement EMS states that she did have wheezing they have her on 4 L currently they did give her DuoNeb in route she denies any fevers denies any vomiting or diarrhea denies any chest pain. Associated symptoms: Deny abdominal pain, chest pain, fever(s), nausea or vomiting Review of Systems Const: Denies: fever(s), chills, body aches or change in appetite Eyes: Denies: blurry vision or eye discomfort ENMT: Denies: throat pain or dental pain Card: Denies: chest pain Resp: Reports: dyspnea, non-productive cough and wheezing GI: Denies: abdominal pain, nausea, vomiting or diarrhea : Denies: dysuria Musc: Denies: neck pain or back pain Skin/Breast: Denies: rash Neuro: Denies: headache(s) Psych: Denies: depression Memo/Lymph: Denies: easy bruising All/Imm: Denies: urticaria PFSH ED PFSH: Medical History Acute exacerbation of chronic obstructive airways disease Acute hypercapnic respiratory failure Acute on chronic respiratory failure with hypoxemia Anxiety and depression Bilateral pulmonary embolism -on AC with Eliquis Bipolar 2 disorder Chronic pain Chronic post-traumatic stress disorder (PTSD) COPD (chronic obstructive pulmonary disease) Chronic COPD. Chronic smoking. She is aware of the risks of cigarette smoking with COPD. Fracture of distal end of right fibula GERD (gastroesophageal reflux disease) Hepatitis C virus infection cured after antiviral drug therapy Hyperlipidemia Hypertension Hypothyroidism Insomnia Non-insulin dependent type 2 diabetes mellitus Obstructive sleep apnea Ovarian cyst Pneumonia Psychiatric care Spinal stenosis Tobacco use disorder, continuous Surgical History H/O section Status post left foot surgery Family History Mother Cancer Breast cancer Social History Smoking and tobacco status: never smoked Quit status (tobacco): considering quitting Second hand smoke exposure: No Alcohol intake: never Counseling given: No Last substance use date: 10/26/19 Household members: children Current occupational status: unemployed History of recent travel: No Physical Exam Const: COMMON NORMALS: patient oriented x3 HENMT: COMMON NORMALS: normocephalic and atraumatic HEAD & SCALP: normocephalic and atraumatic Eye: COMMON NORMALS: Equal, round and reactive pupils present and EOMs intact bilaterally PUPIL: Yes Equal, round and reactive pupils present Neck/C-Spine: COMMON NORMALS: full ROM and supple Chest: COMMONS NORMALS: normal inspection of the chest and normal palpation of entire chest wall Resp: COMMON NORMALS: No retractions EFFORT & INSPECTION: Yes tachypneic and Yes labored AUSCULTATION: wheezes Cardio: COMMON NORMALS: regular rate, regular rhythm and No murmurs present (Cardio) RATE: regular rate RHYTHM: regular rhythm GI: COMMON NORMALS: Normal to inspection, nondistended, normoactive bowel sounds present, Soft to palpation, non-tender and no masses PALPATION: Yes Soft to palpation Extremity: COMMON NORMALS: normal to inspection and full ROM Neuro: COMMON NORMALS: patient oriented x3, moves all extremities and no focal motor deficits Psych: COMMON NORMALS: mental status grossly normal, Normal thought process present and cooperative THOUGHT PROCESS: Normal thought process present Skin: COMMON NORMALS: no rashes or lesions noted and no wounds GENERAL SKIN EXAM: no rashes or lesions noted Course Vital Signs: Vital signs: Vital Signs Temperature 98.2 F 10/23/22 22:58 Pulse Rate 88 10/24/22 00:01 Respiratory Rate 22 H 10/24/22 00:01 Blood Pressure 164/85 10/23/22 22:58 Pulse Oximetry 93 10/24/22 00:01 Oxygen Delivery Me thod 10/24/22 00:01 Oxygen Flow Rate 3.5 10/24/22 00:01 MDM - SOB/Dyspnea Medical Decision Making Patient presents for shortness of breath with COPD exacerbation she is well- appearing here she is at her baseline at 3 L. She is in no distress we will start her on steroids along with antibiotics she is to follow-up with her PCP and return if worsening she understands agrees to plan. Lab Data 10/23/22 23:12 10/23/22 23:12 Labs/Radiology: Radiology Impressions Chest X-Ray 10/23/22 23:06 IMPRESSION: 1. Hyperaerated lungs consistent with deep inspiratory effort vs significant reactive airway disease vs [id number] COPD . 2. Mild right basilar bronchopneumonia. Laboratory Results WBC 6.5 10^3/uL (4.0-10.0) 10/23/22 23:12 RBC 4.47 10^6/uL (4.1-5.3) 10/23/22 23:12 Hgb 13.7 g/dL (11.5-15.3) 10/23/22 23:12 Hct 44.1 % (37.0-47.0) 10/23/22 23:12 MCV 98.7 fl (81-99) 10/23/22 23:12 MCH 30.6 pg (28.0-34.0) 10/23/22 23:12 MCHC 31.1 g/dL (30.0-36.0) 10/23/22 23:12 RDW 13.4 % (12.1-15.1) 10/23/22 23:12 Plt Count 234 10^3/cmm (130-400) 10/23/22 23:12 MPV 10.2 fL (7.4-10.4) 10/23/22 23:12 Neut % (Auto) 48.7 % 10/23/22 23:12 Lymph % (Auto) 36.2 % 10/23/22 23:12 Snyder % (Auto) 12.4 % 10/23/22 23:12 Eos % (Auto) 1.7 % 10/23/22 23:12 Baso % (Auto) 0.5 % 10/23/22 23:12 Neut # (Auto) 3.15 10^3/uL (1.8-7.7) 10/23/22 23:12 Lymph # (Auto) 2.3 10^3/uL (0.8-4.8) 10/23/22 23:12 Snyder # (Auto) 0.8 10^3/uL (0.2-0.9) 10/23/22 23:12 Eos # (Auto) 0.1 10^3/uL (0.0-0.8) 10/23/22 23:12 Baso # (Auto) 0.0 10^3/uL (0.0-0.1) 10/23/22 23:12 Nucleated RBC % (auto) 0 % 10/23/22 23:12 Nucleated RBCs # 0.0 /100WBC 10/23/22 23:12 PT 12.20 SECONDS (12.1-14.9) 10/23/22 23:12 INR 0.87 (0.8-1.2) 10/23/22 23:12 Specimen Type Arterial 10/24/22 00:01 Sample Site Radial, right 10/24/22 00:01 ABG pH 7.42 (7.35-7.45) 10/24/22 00:01 ABG pCO2 56.7 mmHg (35-45) H 10/24/22 00:01 ABG pO2 54.6 mmHg (80.0-100.0) L 10/24/22 00:01 ABG HCO3 36.6 mmol/L (22-26) H 10/24/22 00:01 ABG Base Excess 10.0 mmol/L (-2.0-2.0) H 10/24/22 00:01 Glenn Test Pos 10/24/22 00:01 Hematocrit 42.0 % (37-47) 10/24/22 00:01 Hgb O2 Saturation 86.6 % (95-100) L 10/24/22 00:01 Carboxyhemoglobin 3.3 %THgb (0.4-20.1) 10/24/22 00:01 Methemoglobin 0.8 % (0.4-1.5) 10/24/22 00:01 Total Hemoglobin 13.7 g/dL (12-16) 10/24/22 00:01 O2 Delivery Device Nc 10/24/22 00:01 O2 Liters/Min 3.5 % 10/24/22 00:01 FiO2 34.0 % 10/24/22 00:01 Machine Maintenance Mechanic ID Rachna 10/24/22 00:01 Sodium 139 mmol/L (136-145) 10/23/22 23:12 Potassium 4.6 mmol/L (3.5-5.1) 10/23/22 23:12 Chloride 99 mmol/L (98-107) 10/23/22 23:12 Carbon Dioxide 32 mmol/L (22-29) H 10/23/22 23:12 Anion Gap 12.6 (5-19) 10/23/22 23:12 BUN 10 mg/dL (6-20) 10/23/22 23:12 Creatinine 0.5 mg/dL (0.5-0.9) 10/23/22 23:12 GFR Calculation 126.3 mL/min (90-130) 10/23/22 23:12 Glucose 100 mg/dL (65-115) 10/23/22 23:12 Calculated Osmolality 287 mOsm/kg (285-295) 10/23/22 23:12 Calcium 8.7 mg/dL (8.5-10.5) 10/23/22 23:12 Total Bilirubin 0.3 mg/dL (0.15-1.2) 10/23/22 23:12 AST 11 U/L (0-32) 10/23/22 23:12 ALT 15 U/L (0-33) 10/23/22 23:12 Alkaline Phosphatase 90 U/L (35-105) 10/23/22 23:12 NT-Pro-B Natriuret Pep 36 pg/mL (0-125) 10/23/22 23:12 Total Protein 6.3 g/dL (6.6-8.7) L 10/23/22 23:12 Albumin 3.6 g/dL (3.5-5.2) 10/23/22 23:12 Globulin 2.7 g/dL (1.3-4.6) 10/23/22 23:12 Influenza Type A Ag negative (Negative) 10/23/22 23:23 Influenza Type B Ag negative (Negative) 10/23/22 23:23 SARS-CoV-2 Ag (Rapid) negative (Negative) 10/23/22 23:23 Discharge Plan Discharge Patient Disposition: Home Clinical Impression: Acute exacerbation of chronic obstructive airways disease Condition: Stable Prescriptions: New prednisone 50 mg tablet 50 mg PO DAILY Qty: 5 0RF doxycycline hyclate 100 mg tablet 100 mg PO BID 7 Days Qty: 14 0RF No Action Breztri Aerosphere 160-9-4.8 mcg/actuation HFA aerosol inhaler 2 inh inhalation BID Qty: 10.7 3RF Eliquis 5 mg tablet 5 mg PO BID modafinil [Provigil] 200 mg tablet 200 mg PO BID Qty: 30 5RF duloxetine [Cymbalta] 60 mg capsule,delayed release(DR/EC) 120 mg PO QAM Qty: 60 1RF Rx Instructions: Take two capsules by mouth every morning lamotrigine 100 mg tablet 100 mg PO BID Qty: 60 2RF Rx Instructions: Take one tablet by mouth every morning and at bedtime quetiapine 150 mg tablet extended release 24 hr 150 mg PO BEDTIME Qty: 30 1RF Rx Instructions: Take one tablet daily by mouth at bedtime trazodone 50 mg tablet 50 mg PO DAILY PRN (Reason: insomnia) Qty: 30 1RF Rx Instructions: Take one tablet daily at bedtime, if needed for insomnia (DME) cam boot See Rx Instructions .Route .MEDSUPPLY Qty: 1 0RF Rx Instructions: As directed (DME) CPAP Machine/Supplies See Rx Instructions .Route .MEDSUPPLY Qty: 1 0RF Rx Instructions: Order for CPAP Machine and Supplies (DME) CPAP w/Humidifier, Headgear See Rx Instructions .Route .MEDSUPPLY Qty: 1 0RF Rx Instructions: As directed ipratropium-albuterol 0.5 mg-3 mg(2.5 mg base)/3 mL solution for nebulization 3 ml inhalation Q6H PRN (Reason: wheezing) Qty: 90 3RF montelukast 10 mg tablet 10 mg PO DAILY albuterol sulfate 90 mcg/actuation HFA aerosol inhaler 2 inh INHALATION Q4H PRN (Reason: shortness of breath or wheezing) Qty: 18 0RF omeprazole 40 mg Capsule,Delayed Release(Dr/Ec) 40 mg PO DAILY gabapentin 300 mg Capsule 300 mg PO TID acetaminophen [Tylenol Ex Str Rapid Release] 500 mg Tablet 1,500 mg PO Q4H PRN (Reason: Pain) ibuprofen 200 mg Tablet 600 mg PO Q4H PRN (Reason: Pain) dicyclomine 10 mg Capsule 10 mg PO QID PRN (Reason: Cramps) Spiriva Respimat 2.5 mcg/actuation Mist 2 puff INHALATION QAM levothyroxine 100 mcg tablet 100 mcg PO DAILY magnesium citrate Solution 270 ml PO DAILY Qty: 296 0RF Levsin 0.125 mg tablet 0.125 mg PO Q4H PRN (Reason: dyspepsia) Qty: 30 0RF prednisone 20 mg tablet 20 mg PO TID Qty: 15 0RF Rx Instructions: 1 p.o. 3 times daily x3 days, 1 p.o. twice daily x2 days, 1 p.o. daily x2 days ipratropium-albuterol 0.5 mg-3 mg(2.5 mg base)/3 mL solution for nebulization 3 ml inhalation Q4H PRN (Reason: shortness of breath or wheezing) Qty: 180 0RF Rx Instructions: until breathing returns to target peak flow/parameters Discharge Orders: Discharge ED (Routine); Ordered 10/24/22 Ordered By: Mar Kirk Referrals: Tayler Lan FNP [Referring] - 1-3 days Discharge Diet: Advance as tolerated Discharge Activity: Resume usual activity Patient Instructions: COPD (Chronic Obstructive Pulmonary Disease) (ED) Coding Level of Care Code ED Political Science Chair for Chg Fwd Exam Comprehensive
[2022-10-23 23:33] LABS: Basophils % 0.5 %; Eosinophils # 0.1 10^3/uL (0.0-0.8); Eosinophils % 1.7 %; Hematocrit 44.1 % (37.0-47.0); Hemoglobin 13.7 g/dL (11.5-15.3); Lymphocytes # 2.3 10^3/uL (0.8-4.8); Lymphocytes % 36.2 %; Mean Corpuscular HGB Conc 31.1 g/dL (30.0-36.0); Mean Corpuscular Hemoglobin 30.6 pg (28.0-34.0); Mean Corpuscular Volume 98.7 fl (81-99); Mean Platelet Volume 10.2 fL (7.4-10.4); Monocytes # 0.8 10^3/uL (0.2-0.9); Monocytes % 12.4 %; Neutrophils # 3.15 10^3/uL (1.8-7.7); Neutrophils % 48.7 %; Nucleated Red Blood Cells % 0 %; Platelet Count 234 10^3/cmm (130-400); Red Blood Count 4.47 10^6/uL (4.1-5.3); Red Cell Distribution Width 13.4 % (12.1-15.1); White Blood Count 6.5 10^3/uL (4.0-10.0)
[2022-10-23 23:39] LABS: INR 0.87 (0.8-1.2)
[2022-10-23 23:46] LABS: Influenza A by IFA negative (Negative); Influenza B by IFA negative (Negative); SARS Covid-2 Antigen negative (Negative)
[2022-10-23 23:53] VITALS: PULSE 86; RESP 22; O2SAT 92
[2022-10-23] MEDS: albuterol 2.5 mg/3 mL Neb 5 MG INHALATION (23:53)
[2022-10-24] LABS: Alanine Aminotransferase 15 U/L (0-33); Albumin Level 3.6 g/dL (3.5-5.2); Alkaline Phosphatase 90 U/L (35-105); Aspartate Amino Transferase 11 U/L (0-32); Blood Urea Nitrogen 10 mg/dL (6-20); Calcium 8.7 mg/dL (8.5-10.5); Carbon Dioxide 32 mmol/L (22-29); Chloride 99 mmol/L (98-107); Creatinine Clr Calc Pharmacy 149.5912; Globulin 2.7 g/dL (1.3-4.6); Glomerular Filtration Rate 126.3 mL/min (90-130); Glucose 100 mg/dL (65-115); NT Pro B Type Natriuretic Pept 36 pg/mL (0-125); Osmolality Calculated 287 mOsm/kg (285-295); Sodium 139 mmol/L (136-145); Total Bilirubin 0.3 mg/dL (0.15-1.2); Total Protein 6.3 g/dL (6.6-8.7)
[2022-10-24 00:01] VITALS: PULSE 88; RESP 22; O2SAT 93
[2022-10-24 00:05] LABS: Anion Gap 12.6 (5-19); Potassium 4.6 mmol/L (3.5-5.1)
[2022-10-24 00:07] LABS: ABG PCO2 56.7 mmHg (35-45); ABG PH Result 7.42 (7.35-7.45); Blood Gas Allen Test Pos; Blood Gas LPM 3.5 %; Blood Gas Sample Site Radial, right; Blood Gas Sample Type Arterial; Carboxyhemoglobin 3.3 %THgb (0.4-20.1); HCO3 ABG 36.6 mmol/L (22-26); HGB O2 Sat 86.6 % (95-100); Methemoglobin 0.8 % (0.4-1.5); Oxygen Device NC; PO2 ABG 54.6 mmHg (80.0-100.0); Total Hemoglobin 13.7 g/dL (12-16)
[2022-10-24 00:57] VITALS: BP 167/82; PULSE 85; RESP 20; O2SAT 96
== END 2022-10-24 00:58 | disposition home or self-care (01) ==
PROVIDERS: Emergency Provider Emergency Medicine; PCP Family Medicine
DX: J44.1 Chronic obstructive pulmonary disease with (acute) exacerbation (principal); Z79.01 Long term (current) use of anticoagulants; Z20.822 Contact with and (suspected) exposure to COVID-19; Z86.19 Personal history of other infectious and parasitic diseases; E78.5 Hyperlipidemia, unspecified; I10 Essential (primary) hypertension; E11.9 Type 2 diabetes mellitus without complications
CPT/HCPCS: 71045; 80053; 82805; 83880; 85025; 85610; 87426; 87804; 94640; 99285; J2930; J7613

== ENCOUNTER 2022-10-28 12:55 | Emergency (ER) | payer MEDICARE, MEDICAID, SELFPAY ==
[2020-07-18 17:32] VITALS: BP 115/65; BMI 41.0
[2022-10-28] VITALS (23 sets, daily range): BP systolic 110–138; BP diastolic 61–84; PULSE 82–90; RESP 15–28; TEMP 36.9; O2SAT 88–95; BMI 37.9
--- NOTE | 2022-10-28 12:56 | ED_ITS ---
HPI - SOB/Dyspnea General: Chief Complaint: Shortness of Breath/Dyspnea Stated Complaint: RESP DISTRESS Time Seen by Provider: 10/28/22 12:56 History of Present Illness: HPI Narrative: Ms. Marshall is a 57-year-old lady with history of COPD and chronic hypoxic re spiratory failure on 3 L oxygen at baseline presenting to the emergency department due to shortness of breath. She reports increasing shortness of breath for approximately 3 weeks and has had 2 courses of steroids and antibiotics. This morning her shortness of breath resumed again. She endorses moderate to severe symptoms despite attempting home respiratory treatments. EMS administered nebulizer treatment which did offer some improvement. Symptoms are currently mild to moderate and worsened with exertion. Does endorse productive cough and generalized malaise. No other specific changes in health, exacerbating, or alleviating factors identified. MD elicited complaint: shortness of breath Pertinent past history: COPD Onset (ago): hour(s) Timing: improved Severity: severe Exacerbating factors: exertion and coughing Relieving factors: nothing Known history of: COPD Associated symptoms: Reports chest congestion and cough Review of Systems General: Reports: 10 or more systems reviewed and unremarkable except in HPI and below Resp: Reports: chest congestion PFS ED PFSH: Medical History Acute exacerbation of chronic obstructive airways disease Acute hypercapnic respiratory failure Acute on chronic respiratory failure with hypoxemia Anxiety and depression Bilateral pulmonary embolism -on AC with Eliquis Bipolar 2 disorder Chronic pain Chronic post-traumatic stress disorder (PTSD) COPD (chronic obstructive pulmonary disease) Chronic COPD. Chronic smoking. She is aware of the risks of cigarette smoking with COPD. Fracture of distal end of right fibula GERD (gastroesophageal reflux disease) Hepatitis C virus infection cured after antiviral drug therapy Hyperlipidemia Hypertension Hypothyroidism Insomnia Non-insulin dependent type 2 diabetes mellitus Obstructive sleep apnea Ovarian cyst Pneumonia Psychiatric care Spinal stenosis Tobacco use disorder, continuous Surgical History H/O section Status post left foot surgery Family History Mother Cancer Breast cancer Social History Smoking and tobacco status: never smoked Quit status (tobacco): considering quitting Second hand smoke exposure: No Alcohol intake: never Counseling given: No Last substance use date: 10/26/19 Household members: children Current occupational status: unemployed History of recent travel: No Physical Exam Const: COMMON NORMALS: alert GENERAL APPEARANCE: cooperative, well developed and ill appearing (Mildly) HENMT: COMMON NORMALS: normocephalic and atraumatic HEAD & SCALP: normocephalic and atraumatic Eye: COMMON NORMALS: conjunctivae normal CONJUNCTIVA: Yes conjunctivae normal SCLERA: sclerae normal Neck/C-Spine: COMMON NORMALS: supple GENERAL: Yes trachea midline Resp: EFFORT & INSPECTION: Yes able to speak in complete sentences and Yes labored AUSCULTATION: wheezes (Coarse wheezes bilateral lower inman) Cardio: COMMON NORMALS: regular rate and regular rhythm RATE: regular rate RHYTHM: regular rhythm GI: COMMON NORMALS: Soft to palpation PALPATION: Yes Soft to palpation and No Tenderness to palpation present (GI) Extremity: GENERAL: Yes normal exam except as noted and No edema Neuro: COMMON NORMALS: moves all extremities SENSORIUM/ORIENTATION: Yes alert and No Orientation impaired Psych: COMMON NORMALS: mental status grossly normal and Normal thought process present THOUGHT PROCESS: Normal thought process present Course Vital Signs: Vital signs: Vital Signs Temperature 98.4 F 10/28/22 12:56 Pulse Rate 88 10/28/22 14:54 Respiratory Rate 16 10/28/22 14:50 Blood Pressure 121/84 10/28/22 17:30 Pulse Oximetry 92 10/28/22 17:00 Oxygen Delivery Me thod 10/28/22 14:50 Oxygen Flow Rate 4 10/28/22 14:50 MDM - SOB/Dyspnea Medical Decision Making 57-year-old lady with history of COPD with chronic oxygen respite failure presenting with worsening respiratory symptoms. Prehospital the patient received DuoNeb and steroids with some improvement. On initial exam patient starts labored respirations with abnormal breath sounds. She is nontoxic appearance and there is no evidence of impending respiratory failure requiring immediate intervention. EKG shows sinus rhythm with nonspecific ST segment abnormalities. No STEMI.. Labs notable for no leukocytosis, normal hemoglobin. ABG is compensated. Metabolic panel with some evidence of intravascular dehydration with hyponatremia and hypochloremia, renal function is preserved. Negative range 2- hour delta troponin. BNP is normal. Viral panel negative. Chest x-ray shows mild basilar patchy opacities similar to prior, no pneumothorax. Patient felt significantly proved with IV fluids, antibiotics, RT treatments. She is at her baseline oxygen and clinically appears improved. Given that patient has been on outpatient antibiotics and steroids, as well as significant frequency of home treatment use, I offered admission which the patient declined. Strict return precautions discussed and I will broaden her antibiotic coverage. The results of ED evaluation were discussed with the patient including prescriptions and/or symptomatic cares (if applicable) including appropriate and responsible use, followup plan, and return precautions. The patient verbalized understanding and felt safe for discharge. Medical Records I reviewed the patient's medical records. Lab Data I reviewed the patient's lab results. 10/28/22 12:40 10/28/22 12:40 Labs/Radiology: Radiology Impressions Chest X-Ray 10/28/22 13:05 IMPRESSION: Minimal patchy opacity at the right lung base is similar to the prior study. Differential includes scar tissue and or residual pneumonia. Laboratory Results WBC 8.9 10^3/uL (4.0-10.0) 10/28/22 12:40 RBC 4.54 10^6/uL (4.1-5.3) 10/28/22 12:40 Hgb 13.8 g/dL (11.5-15.3) 10/28/22 12:40 Hct 43.2 % (37.0-47.0) 10/28/22 12:40 MCV 95.2 fl (81-99) 10/28/22 12:40 MCH 30.4 pg (28.0-34.0) 10/28/22 12:40 MCHC 31.9 g/dL (30.0-36.0) 10/28/22 12:40 RDW 13.2 % (12.1-15.1) 10/28/22 12:40 Plt Count 236 10^3/cmm (130-400) 10/28/22 12:40 MPV 10.5 fL (7.4-10.4) H 10/28/22 12:40 Neut % (Auto) 79.1 % 10/28/22 12:40 Lymph % (Auto) 15.3 % 10/28/22 12:40 [place] % (Auto) 4.2 % 10/28/22 12:40 Eos % (Auto) 0.5 % 10/28/22 12:40 Baso % (Auto) 0.3 % 10/28/22 12:40 Neut # (Auto) 7.02 10^3/uL (1.8-7.7) 10/28/22 12:40 Lymph # (Auto) 1.4 10^3/uL (0.8-4.8) 10/28/22 12:40 [place] # (Auto) 0.4 10^3/uL (0.2-0.9) 10/28/22 12:40 Eos # (Auto) 0.0 10^3/uL (0.0-0.8) 10/28/22 12:40 Baso # (Auto) 0.0 10^3/uL (0.0-0.1) 10/28/22 12:40 Nucleated RBC % (auto) 0 % 10/28/22 12:40 Nucleated RBCs # 0.0 /100WBC 10/28/22 12:40 Specimen Type Arterial 10/28/22 13:15 Sample Site Brachial, left 10/28/22 13:15 ABG pH 7.42 (7.35-7.45) 10/28/22 13:15 ABG pCO2 53.4 mmHg (35-45) H 10/28/22 13:15 ABG pO2 50.5 mmHg (80.0-100.0) L 10/28/22 13:15 ABG HCO3 34.4 mmol/L (22-26) H 10/28/22 13:15 ABG Base Excess 8.0 mmol/L (-2.0-2.0) H 10/28/22 13:15 Glenn Test Pos 10/28/22 13:15 Hematocrit 43.5 % (37-47) 10/28/22 13:15 Hgb O2 Saturation 80.2 % (95-100) L 10/28/22 13:15 Carboxyhemoglobin 7.5 %THgb (0.4-20.1) 10/28/22 13:15 Methemoglobin 0.5 % (0.4-1.5) 10/28/22 13:15 Total Hemoglobin 14.2 g/dL (12-16) 10/28/22 13:15 O2 Delivery Device Nc 10/28/22 13:15 O2 Liters/Min 4.0 % 10/28/22 13:15 FiO2 36.0 % 10/28/22 13:15 Preassembler [employer]ed [employer] ID Cak 10/28/22 13:15 Sodium 129 mmol/L (136-145) L 10/28/22 12:40 Potassium 4.5 mmol/L (3.5-5.1) 10/28/22 12:40 Chloride 89 mmol/L (98-107) L 10/28/22 12:40 Carbon Dioxide 32 mmol/L (22-29) H 10/28/22 12:40 Anion Gap 12.5 (5-19) 10/28/22 12:40 BUN 11 mg/dL (6-20) 10/28/22 12:40 Creatinine 0.4 mg/dL (0.5-0.9) L 10/28/22 12:40 GFR Calculation 163.4 mL/min (90-130) H 10/28/22 12:40 Glucose 144 mg/dL (65-115) H 10/28/22 12:40 Calculated Osmolality 270 mOsm/kg (285-295) L 10/28/22 12:40 Calcium 9.0 mg/dL (8.5-10.5) 10/28/22 12:40 Total Bilirubin 0.2 mg/dL (0.15-1.2) 10/28/22 12:40 AST 9 U/L (0-32) 10/28/22 12:40 ALT 12 U/L (0-33) 10/28/22 12:40 Alkaline Phosphatase 85 U/L (35-105) 10/28/22 12:40 Troponin T Baseline 8 ng/L (0-10) 10/28/22 12:40 Troponin T 120 Minute 7.02 ng/L (0-10) 10/28/22 14:20 Delta Troponin T -0.98 ABS# (0-10) L 10/28/22 14:20 NT-Pro-B Natriuret Pep 51 pg/mL (0-125) 10/28/22 12:40 Total Protein 6.4 g/dL (6.6-8.7) L 10/28/22 12:40 Albumin 4.2 g/dL (3.5-5.2) 10/28/22 12:40 Globulin 2.2 g/dL (1.3-4.6) 10/28/22 12:40 Coronavirus 229E (PCR) Not detected (NOT DETECT) 10/28/22 13:40 SARS-CoV-2 (PCR) Not detected (NOT DETECT) 10/28/22 13:40 Discharge Plan Discharge Patient Disposition: Home Clinical Impression: Acute exacerbation of chronic obstructive airways disease Condition: Stable Prescriptions: New azithromycin 250 mg tablet See Rx Instructions .ROUTE .COMPLEX Qty: 6 0RF Rx Instructions: For 250 mg dose pack: take 500 mg today (day 1), then 250 mg for 4 days (days 2-5) amoxicillin-pot clavulanate 875-125 mg tablet 1 tab PO BID Qty: 20 0RF No Action Breztri Aerosphere 160-9-4.8 mcg/actuation HFA aerosol inhaler 2 inh inhalation BID Qty: 10.7 3RF Eliquis 5 mg tablet 5 mg PO BID modafinil [Provigil] 200 mg tablet 200 mg PO BID Qty: 30 5RF (DME) cam boot See Rx Instructions .Route .MEDSUPPLY Qty: 1 0RF Rx Instructions: As directed duloxetine [Cymbalta] 60 mg capsule,delayed release(DR/EC) 120 mg PO QAM Qty: 60 1RF Rx Instructions: Take two capsules by mouth every morning lamotrigine 100 mg tablet 100 mg PO BID Qty: 60 1RF Rx Instructions: Take one tablet by mouth every morning and at bedtime quetiapine 150 mg tablet extended release 24 hr 150 mg PO BEDTIME Qty: 30 1RF Rx Instructions: Take one tablet daily by mouth at bedtime trazodone 50 mg tablet 100 mg PO .q hs PRN (Reason: insomnia) Qty: 60 1RF Rx Instructions: Take up to two tablets at bedtime, if needed for insomnia (DME) CPAP Machine/Supplies See Rx Instructions .Route .MEDSUPPLY Qty: 1 0RF Rx Instructions: Order for CPAP Machine and Supplies (DME) CPAP w/Humidifier, Headgear See Rx Instructions .Route .MEDSUPPLY Qty: 1 0RF Rx Instructions: As directed ipratropium-albuterol 0.5 mg-3 mg(2.5 mg base)/3 mL solution for nebulization 3 ml inhalation Q6H PRN (Reason: wheezing) Qty: 90 3RF montelukast 10 mg tablet 10 mg PO DAILY albuterol sulfate 90 mcg/actuation HFA aerosol inhaler 2 inh INHALATION Q4H PRN (Reason: shortness of breath or wheezing) Qty: 18 0RF omeprazole 40 mg Capsule,Delayed Release(Dr/Ec) 40 mg PO DAILY gabapentin 300 mg Capsule 300 mg PO TID acetaminophen [Tylenol Ex Str Rapid Release] 500 mg Tablet 1,500 mg PO Q4H PRN (Reason: Pain) ibuprofen 200 mg Tablet 600 mg PO Q4H PRN (Reason: Pain) dicyclomine 10 mg Capsule 10 mg PO QID PRN (Reason: Cramps) Spiriva Respimat 2.5 mcg/actuation Mist 2 puff INHALATION QAM levothyroxine 100 mcg tablet 100 mcg PO DAILY magnesium citrate Solution 270 ml PO DAILY Qty: 296 0RF Levsin 0.125 mg tablet 0.125 mg PO Q4H PRN (Reason: dyspepsia) Qty: 30 0RF ipratropium-albuterol 0.5 mg-3 mg(2.5 mg base)/3 mL solution for nebulization 3 ml inhalation Q4H PRN (Reason: shortness of breath or wheezing) Qty: 180 0RF Rx Instructions: until breathing returns to target peak flow/parameters prednisone 50 mg tablet 50 mg PO DAILY Qty: 5 0RF Discharge Orders: Discharge ED (Routine); Ordered 10/28/22 Ordered By: Wes Breaux Referrals: Bandar Cloud MD [Primary Care Provider] - Discharge Diet: Usual diet Discharge Activity: Increase activity as tolerated Patient Instructions: COPD (Chronic Obstructive Pulmonary Disease) (ED) Activity Restrictions/Additional Instructions: Thank you for visiting the emergency department. You were seen and evaluated for respiratory symptoms. The most likely cause of your symptoms is exacerbation of underlying lung disease. You are also found to have mild dehydration. Please ensure that you are staying hydrated. I will prescribe steroids and antibiotics. Please also use your albuterol metered-dose inhaler 2 puffs every 4 hours for 24 hours followed by 2 puffs every 6 hours for 24 hours followed by 2 puffs every 8 hours for 24 hours and then return to the normal schedule. I will message case management for follow-up with [facility]. Please also follow-up with primary care. Given frequent exacerbations in the past 3 weeks I believe it is reasonable to admit you to the hospital for further treatment which you are declining at this time. Please return to the emergency department for worsening symptoms or anything else that you are concerned about and feel needs emergency department evaluation. Coding Level of Care Code ED Stripper Machine Operator for Parmjit Colin Exam Comprehensive
--- NOTE | 2022-10-28 13:05 | XRR_ITS ---
PROCEDURE INFORMATION: Exam: XR Chest Exam date and time: 10/28/2022 1:17 PM Age: 57 years old Clinical indication: Shortness of breath; TECHNIQUE: Imaging protocol: Radiologic exam of the chest. Views: 1 view. COMPARISON: CR (CHEST, ) 10/23/2022 11:09 PM FINDINGS: Lungs: Minimal patchy opacity at the right lung base is similar to the prior study. Pleural spaces: Unremarkable. No pleural effusion. No pneumothorax. Heart/Mediastinum: Unremarkable. No cardiomegaly. Bones/joints: Unremarkable. XR/XR chest 1V portable [id number] IMPRESSION: Minimal patchy opacity at the right lung base is similar to the prior study. Differential includes scar tissue and or residual pneumonia.
--- NOTE | 2022-10-28 13:05 | ECG_ITS ---
[facility] Test Date: 2022-10-28 Pat Name: Tomeka Marshall Department: Room: Gender: Female Switch Tender: : 1965 Requested By: Wes Breaux Order Number: [id number] Umer MD: Tisha Wright M.D. Measurements Intervals [place] Rate: 87 P: 87 IA: 130 QRS: 82 QRSD: 94 T: 68 QT: 351 QTc: 423 Interpretive Statements SINUS RHYTHM LOW QRS VOLTAGE IN PRECORDIAL LEADS [QRS DEFLECTION < 1.0 mV IN CHEST LEADS] MODERATE ST DEPRESSION [0.05+ mV ST DEPRESSION] Compared to ECG 10/13/2022 07:54:38 Low QRS voltage now present ST (T wave) deviation now present Myocardial infarct finding no longer present Electronically Signed On 10-28-2022 20:04:55 LIQUOR DEPARTMENT MANAGER by Tisha Wright M.D. [id number]
[2022-10-28] MEDS: ipratropium-albuterol 3 mL Neb INHALATION (13:13)
[2022-10-28 13:27] LABS: Basophils % 0.3 %; Eosinophils % 0.5 %; Hematocrit 43.2 % (37.0-47.0); Hemoglobin 13.8 g/dL (11.5-15.3); Lymphocytes # 1.4 10^3/uL (0.8-4.8); Lymphocytes % 15.3 %; Mean Corpuscular HGB Conc 31.9 g/dL (30.0-36.0); Mean Corpuscular Hemoglobin 30.4 pg (28.0-34.0); Mean Corpuscular Volume 95.2 fl (81-99); Mean Platelet Volume 10.5 fL (7.4-10.4); Monocytes # 0.4 10^3/uL (0.2-0.9); Monocytes % 4.2 %; Neutrophils # 7.02 10^3/uL (1.8-7.7); Neutrophils % 79.1 %; Nucleated Red Blood Cells % 0 %; Platelet Count 236 10^3/cmm (130-400); Red Blood Count 4.54 10^6/uL (4.1-5.3); Red Cell Distribution Width 13.2 % (12.1-15.1); White Blood Count 8.9 10^3/uL (4.0-10.0)
[2022-10-28 13:27] LABS: ABG PCO2 53.4 mmHg (35-45); ABG PH Result 7.42 (7.35-7.45); Arterial Blood Gas Hematocrit 43.5 % (37-47); Blood Gas Allen Test Pos; Blood Gas Operator Identificat CAK; Blood Gas Sample Site Brachial, left; Blood Gas Sample Type Arterial; Carboxyhemoglobin 7.5 %THgb (0.4-20.1); HCO3 ABG 34.4 mmol/L (22-26); HGB O2 Sat 80.2 % (95-100); Methemoglobin 0.5 % (0.4-1.5); Oxygen Device NC; PO2 ABG 50.5 mmHg (80.0-100.0); Total Hemoglobin 14.2 g/dL (12-16)
[2022-10-28 13:48] LABS: Troponin(5th) Baseline 8 ng/L (0-10)
[2022-10-28 13:58] LABS: Alanine Aminotransferase 12 U/L (0-33); Albumin Level 4.2 g/dL (3.5-5.2); Alkaline Phosphatase 85 U/L (35-105); Anion Gap 12.5 (5-19); Aspartate Amino Transferase 9 U/L (0-32); Blood Urea Nitrogen 11 mg/dL (6-20); Carbon Dioxide 32 mmol/L (22-29); Chloride 89 mmol/L (98-107); Globulin 2.2 g/dL (1.3-4.6); Glomerular Filtration Rate 163.4 mL/min (90-130); Glucose 144 mg/dL (65-115); NT Pro B Type Natriuretic Pept 51 pg/mL (0-125); Osmolality Calculated 270 mOsm/kg (285-295); Potassium 4.5 mmol/L (3.5-5.1); Sodium 129 mmol/L (136-145); Total Bilirubin 0.2 mg/dL (0.15-1.2); Total Protein 6.4 g/dL (6.6-8.7)
--- NOTE | 2022-10-28 14:02 | PC.NURSE ---
When admin the PCR test, the patient jerked but and stated that she doesn't want the test anymore. Provider made aware about the quality of the test.
[2022-10-28] MEDS: sodium chloride 0.9% 500 ML 999 ML IV (14:16)
[2022-10-28] MEDS: albuterol 2.5 mg/3 mL Neb INHALATION (14:52)
[2022-10-28 14:56] LABS: Troponin 5 2HR 7.02 ng/L (0-10)
--- NOTE | 2022-10-28 15:05 | ECG_ITS ---
[facility] Test Date: 2022-10-28 Pat Name: Tomeka Marshall Department: Room: Gender: Female Lockstitch Zipper Setter: : 1965 Requested By: Wes Breaux Order Number: [id number] Umer MD: Tisha Wright M.D. Measurements Intervals [place] Rate: 75 P: 71 SC: 167 QRS: 84 QRSD: 102 T: 83 QT: 372 QTc: 416 Interpretive Statements SINUS RHYTHM MODERATE ST DEPRESSION [0.05+ mV ST DEPRESSION] Compared to ECG 10/28/2022 13:17:00 No significant changes Electronically Signed On 10-28-2022 20:23:31 AIR MOVING TECHNICIAN by Tisha Wright M.D. [id number]
[2022-10-28 15:58] LABS: Troponin 5 2HR Delta -0.98 ABS# (0-10)
[2022-10-28 16:37] LABS: Adenovirus Not Detected (NOT DETECT); Chlamydia Pneumoniae Not Detected (NOT DETECT); Coronavirus 229E,HKU1,NL63,OC4 Not Detected (NOT DETECT); Human Metapneumovirus Not Detected (NOT DETECT); Human Rhinovirus/Enterovirus Not Detected (NOT DETECT); Influenza A Not Detected (NOT DETECT); Influenza A H1 Not Detected (NOT DETECT); Influenza A H1-2009 Not Detected (NOT DETECT); Influenza A H3 Not Detected (NOT DETECT); Influenza B Not Detected (NOT DETECT); Mycoplasma Pneumoniae Not Detected (NOT DETECT); Parainfluenza Virus Type 1 Not Detected (NOT DETECT); Parainfluenza Virus Type 2 Not Detected (NOT DETECT); Parainfluenza Virus Type 3 Not Detected (NOT DETECT); Parainfluenza Virus Type 4 Not Detected (NOT DETECT); Respiratory Syncytial Virus A Not Detected (NOT DETECT); Respiratory Syncytial Virus B Not Detected (NOT DETECT); SARS-COV-2 Not Detected (NOT DETECT)
[2022-10-28] MEDS: azithromycin 250 mg Tablet 500 MG PO (17:04)
[2022-10-28] MEDS: amoxicillin-clav 875-125 mg Tablet 1 TAB PO (17:04)
== END 2022-10-28 17:20 | disposition home or self-care (01) ==
PROVIDERS: Emergency Provider Emergency Medicine; PCP Family Medicine
DX: J44.1 Chronic obstructive pulmonary disease with (acute) exacerbation (principal); Z79.01 Long term (current) use of anticoagulants; Z20.822 Contact with and (suspected) exposure to COVID-19; E78.5 Hyperlipidemia, unspecified; Z86.19 Personal history of other infectious and parasitic diseases; I10 Essential (primary) hypertension; E11.9 Type 2 diabetes mellitus without complications
CPT/HCPCS: 36415; 36600; 71045; 80053; 82805; 83880; 84484; 85025; 87635; 93005; 94640; 96360; 96361; 99285; J7040; J7613; Q0144

== ENCOUNTER 2023-04-19 09:34 | Inpatient (IN) | payer MEDICARE, MEDICAID, SELFPAY ==
[2020-07-18 17:32] VITALS: BP 115/65; BMI 41.0
[2023-04-19] VITALS (12 sets, daily range): BP systolic 123–153; BP diastolic 69–78; PULSE 77–108; RESP 16–22; TEMP 36.7–36.8; O2SAT 86–94; BMI 37.4
--- NOTE | 2023-04-19 09:44 | ECG_ITS ---
[facility] Test Date: 2023-04-19 Pat Name: Tomeka Marshall Department: Room: Gender: Female Plc Controls Engineer: : 1965 Requested By: Jason Ge Order Number: [id number] Umer MD: Loyd Joseph M.D. Measurements Intervals [place] Rate: 99 P: -13 FL: 164 QRS: -31 QRSD: 106 T: -18 QT: 346 QTc: 444 Interpretive Statements SINUS RHYTHM LEFT AXIS DEVIATION [QRS AXIS < -30] Compared to ECG 10/28/2022 15:26:06 Left-axis deviation now present ST (T wave) deviation no longer present Electronically Signed On 04-19-2023 15:47:56 CDT by Loyd Joseph M.D. [id number]
--- NOTE | 2023-04-19 10:17 | ED_ITS ---
HPI - SOB/Dyspnea General: Chief Complaint: Shortness of Breath/Dyspnea Stated Complaint: SOB Time Seen by Provider: 04/19/23 09:38 Source: patient Mode of arrival: ambulatory History of Present Illness: HPI Narrative: 57-year-old female presents emergency room complaining of wheezing moderately productive cough shortness of breath low-grade fever she is normally on 3 L by nasal cannula which she had to go to 5. She tried nebulizer at home with minimal relief of symptoms DuoNeb here did improve some on 4 L she is 87%. Denies chest pain. MD elicited complaint: shortness of breath and cough Pertinent past history: COPD Onset (ago): day(s) (3) Context: occurred during exertion Timing: constant Exacerbating factors: exertion, movement and coughing Relieving factors: oxygen, rest and bronchodilators Known history of: COPD Associated symptoms: Reports chest congestion and cough; Deny abdominal pain, chest pain, diaphoresis, dizziness, extremity pain, fever(s), hemoptysis, lightheadedness, myalgias, nausea, orthopnea, palpitations, paresthesias, polydipsia, polyuria, rash, sense of impending doom, syncope or vomiting Treatment prior to arrival: oxygen and bronchodilator Related Data: Home oxygen amount: 3 liters Review of Systems Const: Denies: fever(s), chills, fatigue, malaise or diaphoresis ENMT: Denies: throat pain, ear or mastoid pain, nasal discharge or nasal congestion Card: Denies: chest pain, palpitations, lightheadedness, syncope or orthopnea Resp: Reports: dyspnea, productive cough, wheezing and chest congestion; Denies: hemoptysis GI: Denies: abdominal pain, nausea or vomiting : Denies: flank pain, difficulty voiding, dysuria, urinary frequency or urinary urgency Musc: Denies: neck pain, back pain or extremity pain Skin/Breast: Denies: rash or pruritus Neuro: Denies: dizziness Endo: Denies: polyuria or polydipsia [facility] ED PFSH: Medical History Acute exacerbation of chronic obstructive airways disease Acute hypercapnic respiratory failure Acute on chronic respiratory failure with hypoxemia Anxiety and depression Bilateral pulmonary embolism -on AC with Eliquis Bipolar 2 disorder Chronic pain Chronic post-traumatic stress disorder (PTSD) COPD (chronic obstructive pulmonary disease) Chronic COPD. Chronic smoking. She is aware of the risks of cigarette smoking with COPD. Fracture of distal end of right fibula GERD (gastroesophageal reflux disease) Hepatitis C virus infection cured after antiviral drug therapy Hyperlipidemia Hypertension Hypothyroidism Insomnia Non-insulin dependent type 2 diabetes mellitus Obstructive sleep apnea Ovarian cyst Pneumonia Psychiatric care Spinal stenosis Tobacco use disorder, continuous Surgical History H/O section Status post left foot surgery Family History Mother Cancer Breast cancer Social History Smoking and tobacco status: never smoked Quit status (tobacco): considering quitting Second hand smoke exposure: No Alcohol intake: never Counseling given: No Substance/Drug Use: never Last substance use date: 10/26/19 Household members: children Current occupational status: unemployed Physical Exam Const: GENERAL APPEARANCE: cooperative and comfortable ORIENTATION/CONSCIOUSNESS: Yes awake, Yes oriented to person, Yes oriented to place and Yes oriented to time HENMT: COMMON NORMALS: normocephalic, atraumatic and hearing grossly normal bilaterally HEAD & SCALP: normocephalic and atraumatic Resp: COMMON NORMALS: normal respiratory effort, No retractions and No use of accessory muscles AUSCULTATION: wheezes Cardio: COMMON NORMALS: regular rate, regular rhythm and No murmurs present (Cardio) RATE: regular rate RHYTHM: regular rhythm GI: COMMON NORMALS: Soft to palpation and No hepatosplenomegaly present AUSCULTATION: Yes normoactive bowel sounds PALPATION: Yes Soft to palpation, No Tenderness to palpation present (GI), No Guarding due to palpation present (GI) and Yes No hepatosplenomegaly present Extremity: COMMON NORMALS: normal to inspection, capillary refill normal, no clubbing, cyanosis or edema, no calf tenderness and no pedal edema Neuro: SENSORIUM/ORIENTATION: Yes oriented to person, Yes oriented to place and Yes oriented to time Skin: COMMON NORMALS: no rashes or lesions noted GENERAL SKIN EXAM: no rashes or lesions noted Course Vital Signs: Vital signs: Vital Signs Temperature 97.5 F L 04/20/23 11:34 Pulse Rate 90 04/20/23 13:22 Respiratory Rate 22 H 07/01/23 13:22 Blood Pressure 130/84 04/20/23 11:34 Pulse Oximetry 93 04/20/23 13:22 Oxygen Delivery Me thod Nasal Cannula 04/20/23 13:22 Oxygen Flow Rate 5 04/20/23 13:22 Fraction of Inspir ed Oxygen 40 04/20/23 04:57 MDM - SOB/Dyspnea Medical Decision Making Exacerbation COPD with pneumonia. Will admit started on ceftriaxone and Zithromax aggressive pulmonary toilet discussed with hospitalist orders written Medical Records I reviewed the patient's medical records. Lab Data I reviewed the patient's lab results. 04/20/23 04:37 04/20/23 04:37 Labs/Radiology: Radiology Impressions Chest X-Ray 04/19/23 10:17 IMPRESSION: 1. Infiltrate along the left heart border suspicious for lingular pneumonia. Superimposed chronic interstitial changes in both lungs. Chest CTA 04/20/23 09:06 IMPRESSION: 1. Nondiagnostic evaluation of the pulmonary arteries due to suboptimal contrast bolus timing. The technologist reportedly attempted to scan the patient a 2nd time but due to patient discomfort, was unable to do so. 2. Tree-in-bud nodularity in the lungs bilaterally may reflect sequela of aspiration or atypical infection. COMMENTS: In the absence of a history or active diagnosis of lung cancer, it is recommended that this patient with emphysema be evaluated for enrollment in a low dose CT lung cancer screening program. Laboratory Results WBC 13.6 10^3/uL (4.0-10.0) H 04/19/23 10:53 RBC 4.84 10^6/uL (4.1-5.3) 04/19/23 10:53 Hgb 14.8 g/dL (11.5-15.3) 04/19/23 10:53 Hct 46.5 % (37.0-47.0) 04/19/23 10:53 MCV 96.1 fl (81-99) 04/19/23 10:53 MCH 30.6 pg (28.0-34.0) 04/19/23 10:53 MCHC 31.8 g/dL (30.0-36.0) 04/19/23 10:53 RDW 13.6 % (12.1-15.1) 04/19/23 10:53 Plt Count 206 10^3/cmm (130-400) 04/19/23 10:53 MPV 10.2 fL (7.4-10.4) 04/19/23 10:53 Neut % (Auto) 84.4 % 04/19/23 10:53 Lymph % (Auto) 8.1 % 04/19/23 10:53 Graves % (Auto) 6.7 % 04/19/23 10:53 Eos % (Auto) 0.1 % 04/19/23 10:53 Baso % (Auto) 0.3 % 04/19/23 10:53 Neut # (Auto) 11.47 10^3/uL (1.8-7.7) H 04/19/23 10:53 Lymph # (Auto) 1.1 10^3/uL (0.8-4.8) 04/19/23 10:53 Graves # (Auto) 0.9 10^3/uL (0.2-0.9) 04/19/23 10:53 Eos # (Auto) 0.0 10^3/uL (0.0-0.8) 04/19/23 10:53 Baso # (Auto) 0.0 10^3/uL (0.0-0.1) 04/19/23 10:53 Nucleated RBC % (auto) 0 % 04/19/23 10:53 Nucleated RBCs # 0.0 /100WBC 04/19/23 10:53 D-Dimer 1.96 ug/mIFEU (0-0.59) H 04/19/23 10:53 Sodium 136 mmol/L (136-145) 04/19/23 10:53 Potassium 3.7 mmol/L (3.5-5.1) 04/19/23 10:53 Chloride 94 mmol/L (98-107) L 04/19/23 10:53 Carbon Dioxide 32 mmol/L (22-29) H 04/19/23 10:53 Anion Gap 13.7 (5-19) 04/19/23 10:53 BUN 8 mg/dL (6-20) 04/19/23 10:53 Creatinine 0.4 mg/dL (0.5-0.9) L 04/19/23 10:53 GFR Calculation 163.4 mL/min (90-130) H 04/19/23 10:53 Glucose 115 mg/dL (65-115) 04/19/23 10:53 Calculated Osmolality 281 mOsm/kg (285-295) L 04/19/23 10:53 Calcium 9.1 mg/dL (8.5-10.5) 04/19/23 10:53 Total Bilirubin 1.1 mg/dL (0.15-1.2) 04/19/23 10:53 AST 10 U/L (0-32) 04/19/23 10:53 ALT 10 U/L (0-33) 04/19/23 10:53 Alkaline Phosphatase 118 U/L (35-105) H 04/19/23 10:53 Troponin T Baseline 8 ng/L (0-10) 04/19/23 10:53 Troponin T 120 Minute 7.37 ng/L (0-10) 04/19/23 12:15 Delta Troponin T -0.63 ABS# (0-10) L 04/19/23 12:15 Total Protein 7.4 g/dL (6.6-8.7) 04/19/23 10:53 Albumin 4.0 g/dL (3.5-5.2) 04/19/23 10:53 Globulin 3.4 g/dL (1.3-4.6) 04/19/23 10:53 Procalcitonin 0.08 ng/mL (0-0.5) 04/19/23 10:53 TSH 1.94 uIU/mL (0.27-4.20) 04/19/23 10:53 Urine Color Sherry (Yellow) 04/19/23 11:44 Urine Appearance Clear (CLEAR) 04/19/23 11:44 Urine pH 5 (5-7) 04/19/23 11:44 Ur Specific Sieper 1.020 (1.005-1.030) 04/19/23 11:44 Urine Protein 1+ (Negative) H 04/19/23 11:44 Urine Glucose (UA) Norm (Normal) 04/19/23 11:44 Urine Ketones 1+ (Negative) H 04/19/23 11:44 Urine Blood Neg (Negative) 04/19/23 11:44 Urine Nitrate Negative (Negative) 04/19/23 11:44 Urine Bilirubin 1+ (Negative) H 04/19/23 11:44 Urine Urobilinogen 8 mg/dL (Negative) H 04/19/23 11:44 Ur Leukocyte Esterase Negative (Negative) 04/19/23 11:44 Urine RBC 5-10 /hpf (0-2) H 04/19/23 11:44 Urine WBC 0-4 /hpf (0-5) H 04/19/23 11:44 Ur Squamous Epith Cells 10-15 /hpf (0-5) H 04/19/23 11:44 Amorphous Sediment Not Reportable 04/19/23 11:44 Urine Bacteria Trace /hpf (NONE) 04/19/23 11:44 Urine Mucus 3+ /hpf 04/19/23 11:44 Discharge Plan Discharge Patient Disposition: Admitted As Inpatient Admit Provider: Eduin Bethea Clinical Impression: Pneumonia, COPD exacerbation Condition: Stable Coding Level of Care Code ED [employer]inder for Parmjit Colin
--- NOTE | 2023-04-19 10:17 | XR_ITS ---
WS: [id number] Exam: XR chest 1V portable [id number] Date/Time of Exam: 04/19/2023 10:50 AM Reason For Exam: dyspnea/cough There is patchy infiltrate along the left heart border suspicious for developing pneumonia. Superimpo sed chronic interstitial changes noted throughout both lungs. No pneumothorax or pleural effusion. No rmal cardiomediastinal silhouette and regional bony elements. XR/XR chest 1V portable [id number] IMPRESSION: 1. Infiltrate along the left heart border suspicious for lingular pneumonia. Trinh perimposed chronic interstitial changes in both lungs.
[2023-04-19] MEDS: ipratropium-albuterol 3 mL Neb INHALATION ×2 (10:33→19:44)
[2023-04-19 11:02] LABS: Basophils % 0.3 %; Eosinophils % 0.1 %; Hematocrit 46.5 % (37.0-47.0); Hemoglobin 14.8 g/dL (11.5-15.3); Lymphocytes # 1.1 10^3/uL (0.8-4.8); Lymphocytes % 8.1 %; Mean Corpuscular HGB Conc 31.8 g/dL (30.0-36.0); Mean Corpuscular Hemoglobin 30.6 pg (28.0-34.0); Mean Corpuscular Volume 96.1 fl (81-99); Mean Platelet Volume 10.2 fL (7.4-10.4); Monocytes # 0.9 10^3/uL (0.2-0.9); Monocytes % 6.7 %; Neutrophils # 11.47 10^3/uL (1.8-7.7); Neutrophils % 84.4 %; Nucleated Red Blood Cells % 0 %; Platelet Count 206 10^3/cmm (130-400); Red Blood Count 4.84 10^6/uL (4.1-5.3); Red Cell Distribution Width 13.6 % (12.1-15.1); White Blood Count 13.6 10^3/uL (4.0-10.0)
[2023-04-19] MEDS: methylPREDNISolone sod succ 125 mg SDV IVP (11:07)
[2023-04-19 11:19] LABS: Alanine Aminotransferase 10 U/L (0-33); Alkaline Phosphatase 118 U/L (35-105); Anion Gap 13.7 (5-19); Aspartate Amino Transferase 10 U/L (0-32); Blood Urea Nitrogen 8 mg/dL (6-20); Calcium 9.1 mg/dL (8.5-10.5); Carbon Dioxide 32 mmol/L (22-29); Chloride 94 mmol/L (98-107); Globulin 3.4 g/dL (1.3-4.6); Glomerular Filtration Rate 163.4 mL/min (90-130); Glucose 115 mg/dL (65-115); Osmolality Calculated 281 mOsm/kg (285-295); Potassium 3.7 mmol/L (3.5-5.1); Sodium 136 mmol/L (136-145); Total Bilirubin 1.1 mg/dL (0.15-1.2); Total Protein 7.4 g/dL (6.6-8.7)
[2023-04-19 11:21] LABS: Troponin(5th) Baseline 8 ng/L (0-10)
[2023-04-19] MEDS: acetaminophen 500 mg Tablet 1000 MG PO (11:34)
[2023-04-19 12:05] LABS: Urine Appearance Clear (CLEAR); Urine Color Amber (Yellow); pH Urine 5 (5-7)
[2023-04-19 12:06] LABS: Add Urine Culture? No; Add Urine Microscopic? YES; Bacteria Urine TRACE /hpf; Bilirubin Urine 1+ (Negative); Blood Urine Neg (Negative); Glucose Urine UA Norm (Normal); Ketones Urine 1+ (Negative); Leukocyte Esterase Urine Negative (Negative); Mucus Urine 3+ /hpf; Nitrate Urine Negative (Negative); Protein Urine 1+ (Negative); Urobilinogen Urine 8 mg/dL (Negative); WBC Urine 0-4 /hpf (0-5)
--- NOTE | 2023-04-19 12:17 | ECG_ITS ---
[facility] Test Date: 2023-04-19 Pat Name: Tomeka Marshall Department: Room: Gender: Female Account Contact Associate: : 1965 Requested By: Jason Ge Order Number: [id number] Umer MD: Loyd Joseph M.D. Measurements Intervals [place] Rate: 87 P: 76 [place]: 174 QRS: 86 QRSD: 105 T: 90 QT: 359 QTc: 432 Interpretive Statements SINUS RHYTHM NONSPECIFIC T-WAVE ABNORMALITY Compared to ECG 04/19/2023 09:44:15 T-wave abnormality now present Left-axis deviation no longer present Electronically Signed On 04-19-2023 15:53:21 CDT by Loyd Joseph M.D. [id number]
[2023-04-19 12:54] LABS: Troponin 5 2HR 7.37 ng/L (0-10)
[2023-04-19 13:03] LABS: Troponin 5 2HR Delta -0.63 ABS# (0-10)
--- NOTE | 2023-04-19 13:23 | P.HP_ITS ---
Providers/Chief Complaint Primary Care Provider: Bandar Cloud MD Chief Complaint: SOB History of Present Illness Tomeka Marshall is a 57 year old female who at baseline uses 3 L of oxygen, presenting from home with chief complaint of shortness of breath, lethargy fatigue productive cough for last 4 days. She has noticed fever on and off, she is currently smoking half a pack a day in the ER she has been diagnosed lingular pneumonia she is not septic requiring more than baseline 5 L requested ABG, D- dimer started on ceftriaxone and azithromycin, sputum culture has been requested as well Review of Systems Const: Reports: fever(s) and chills Eyes: Denies: change in vision ENMT: Denies: throat pain Card: Denies: chest pain Resp: Reports: dyspnea GI: Denies: abdominal pain : Denies: flank pain Musc: Denies: neck pain Skin/Breast: Denies: rash Neuro: Denies: headache(s) Psych: Reports: anxiety Medications/Allergies Home Medications Medication Instructions Recorded Confirmed Last Taken Type apixaban 5 mg tablet (Eliquis) 5 mg PO BID 02/12/20 04/19/23 09/01/22 08:00 History albuterol sulfate 90 mcg/actuation 2 inh inhalation Q4H PRN shortness 05/28/20 04/19/23 09/04/20 Rx aerosol inhaler of breath or wheezing #18 grams montelukast 10 mg tablet 10 mg PO DAILY 05/28/20 04/19/23 11/16/21 History gabapentin 300 mg capsule 300 mg PO TID 08/25/21 04/19/23 11/16/21 History omeprazole 40 mg capsule,delayed 40 mg PO DAILY 08/25/21 04/19/23 09/01/22 History release acetaminophen 500 mg tablet 1,500 mg PO Q4H PRN Pain 10/03/21 04/19/23 Unknown History ibuprofen 200 mg tablet 600 mg PO Q4H PRN Pain 10/03/21 04/19/23 10/03/21 History CPAP Machine/Supplies #1 ea 07/11/22 04/19/23 Unknown Rx CPAP w/Humidifier, Headgear #1 ea 07/11/22 04/19/23 Unknown Rx cam boot #1 ea 08/14/22 04/19/23 Unknown Rx modafinil 200 mg tablet (Provigil) 200 mg PO BID #30 tabs 01/14/23 04/19/23 Unknown Rx duloxetine 60 mg capsule,delayed 120 mg PO QAM #60 caps 01/24/23 04/19/23 Unknown Rx release (Cymbalta) lamotrigine 100 mg tablet 100 mg PO BID #60 tabs 01/24/23 04/19/23 Unknown Rx quetiapine 150 mg tablet,extended 150 mg PO BEDTIME #30 tabs 01/24/23 04/19/23 Unknown Rx release 24 hr ipratropium 0.5 mg-albuterol 3 mg 3 ml inhalation Q6H PRN wheezing 02/19/23 04/19/23 Unknown Rx (2.5 mg base)/3 mL nebulization #90 mL soln azelastine 137 mcg (0.1 %) nasal 1 spray intranasal DAILY 04/19/23 04/19/23 Unknown History spray aerosol bupropion HCl 150 mg 24 hr tablet, 150 mg PO DAILY 04/19/23 04/19/23 Unknown History extended release levothyroxine 88 mcg tablet 88 mcg PO DAILY 04/19/23 04/19/23 Unknown History trazodone 50 mg tablet 100 mg PO BEDTIME PRN insomnia 04/19/23 04/19/23 Unknown History valsartan 80 mg tablet 80 mg PO DAILY 04/19/23 04/19/23 Unknown History Allergies Allergy/AdvReac Type Severity Reaction Status Date / Time levofloxacin [From Levaquin] Allergy Intermediate ADR-Abdominal Verified 04/19/23 10:34 Pain Sulfa (Sulfonamide Allergy Intermediate ADR-Blurry Verified 04/19/23 10:34 Antibiotics) Vision nitrofurantoin Allergy Unknown Verified 04/19/23 10:34 PFSH Acute PFSH: Medical History Acute exacerbation of chronic obstructive airways disease Acute hypercapnic respiratory failure Acute on chronic respiratory failure with hypoxemia Anxiety and depression Bilateral pulmonary embolism -on AC with Eliquis Bipolar 2 disorder Chronic pain Chronic post-traumatic stress disorder (PTSD) COPD (chronic obstructive pulmonary disease) Chronic COPD. Chronic smoking. She is aware of the risks of cigarette smoking with COPD. Fracture of distal end of right fibula GERD (gastroesophageal reflux disease) Hepatitis C virus infection cured after antiviral drug therapy Hyperlipidemia Hypertension Hypothyroidism Insomnia Non-insulin dependent type 2 diabetes mellitus Obstructive sleep apnea Ovarian cyst Pneumonia Psychiatric care Spinal stenosis Tobacco use disorder, continuous Surgical History H/O section Status post left foot surgery Family History Mother Cancer Breast cancer Social History Smoking and tobacco status: never smoked Quit status (tobacco): considering quitting Second hand smoke exposure: No Alcohol intake: never Counseling given: No Substance/Drug Use: never Last substance use date: 10/26/19 Household members: children Current occupational status: unemployed Vitals/I&O/Wt Last Vital Signs Temp 98.0 F 04/19/23 09:44 Pulse 94 04/19/23 13:14 Resp 18 04/19/23 13:14 BP 153/69 04/19/23 13:14 Pulse Ox 88 L 04/19/23 13:14 O2 Del Method Nasal Cannula 04/19/23 13:14 O2 Flow Rate 5 04/19/23 13:14 Weight last 48 hrs Weight 105.233 kg Physical Exam Narrative: Mild wheezing noted Awake and alert Nonfocal neuro exam GCS 15 S1, S2 Hypertensive Currently on 5 L Abdomen soft Lower extremity no edema Skin tattoos noted Data 04/19/23 10:53 04/19/23 10:53 Micro: Microbiology 04/19/23 12:25 Blood Culture - Preliminary Blood SPECIMEN COLLECTED 04/19/23 12:15 Blood Culture - Preliminary Blood SPECIMEN COLLECTED A&P Assessment and plan (1) Smoking: (2) Obstructive sleep apnea hypopnea, severe: (3) Narcolepsy with cataplexy: (4) Left lower lobe pneumonia: (5) COPD (chronic obstructive pulmonary disease): (6) Bilateral pulmonary embolism: Plan Acute COPD exacerbation Community-acquired pneumonia Currently on 5 L Mild wheezing noted Prednisone 40 daily Start ceftriaxone azithromycin COPD exacerbation related to lingular pneumonia Sputum culture requested She is not septic She is actively smoking the states as well half a pack a day History of narcolepsy, COPD sleep apnea would use BiPAP overnight History of PE continue anticoagulating agent Full code Cardiac diet Patient lives with her Attestations Medical Necessity Statement*: Than 2 midnights anticipated for management of COPD exacerbation Diagnoses Smoking F17.200 Obstructive sleep apnea hypopnea, severe G47.33 Narcolepsy with cataplexy G47.411 Left lower lobe pneumonia J18.9 COPD (chronic obstructive pulmonary disease) J44.9 Bilateral pulmonary embolism I26.99
[2023-04-19 13:44] LABS: ABG PCO2 56.8 mmHg (35-45); ABG PH Result 7.37 (7.35-7.45); Arterial Blood Gas Hematocrit 44.2 % (37-47); Base Excess ABG 5.7 mmol/L (-2.0-2.0); Blood Gas Allen Test Pos; Blood Gas Operator Identificat WALCI; Blood Gas Sample Site Radial, left; Blood Gas Sample Type Arterial; HCO3 ABG 32.8 mmol/L (22-26); Oxygen Device NC; PO2 ABG 58.5 mmHg (80.0-100.0)
[2023-04-19 13:49] LABS: D Dimer 1.96 ug/mIFEU (0-0.59)
[2023-04-19 14:05] LABS: Procalcitonin 0.08 ng/mL (0-0.5)
[2023-04-19] MEDS: gabapentin 300 mg Capsule PO ×2 (15:22→21:21)
[2023-04-19 15:53] LABS: Thyroid Stimulating Hormone 1.94 uIU/mL (0.27-4.20)
--- NOTE | 2023-04-19 15:53 | PC.NURSE ---
Iv bad when up from ER. Tried to start IV with no success. Ask another nurse to please try.
--- NOTE | 2023-04-19 16:43 | ECG_ITS ---
[facility] Test Date: 2023-04-19 Pat Name: Tomeka Marshall Department: Room: 252 Gender: Female Electronic Systems Technician: : 1965 Requested By: Jason Ge Order Number: [id number] Umer MD: Loyd Joseph M.D. Measurements Intervals [place] Rate: 63 P: 70 CT: 174 QRS: 86 QRSD: 100 T: 82 QT: 397 QTc: 408 Interpretive Statements SINUS RHYTHM WITH SINUS ARRHYTHMIA Compared to ECG 04/19/2023 12:15:53 T-wave abnormality no longer present Electronically Signed On 04-20-2023 6:03:44 CDT by Loyd Joseph M.D. [id number]
[2023-04-19] MEDS: FUROsemide 10 mg/mL SDV 10mL 60 MG IVP (17:21)
[2023-04-19] MEDS: morphine IR 15 mg Tablet PO (17:22)
[2023-04-19] MEDS: lamoTRIgine 100 mg Tablet PO (17:22)
[2023-04-19] MEDS: apixaban 5 mg Tablet PO (17:23)
[2023-04-19] MEDS: quetiapine XR (24HR) 50 mg Tablet 150 MG PO (21:21)
[2023-04-20] VITALS (14 sets, daily range): BP systolic 97–138; BP diastolic 56–84; PULSE 61–93; RESP 17–24; TEMP 36.3–37.1; O2SAT 90–98
[2023-04-20] MEDS: ipratropium-albuterol 3 mL Neb INHALATION ×4 (01:00→19:16)
[2023-04-20 05:25] LABS: Basophils % 0.1 %; Eosinophils % 0.1 %; Hemoglobin 13.6 g/dL (11.5-15.3); Lymphocytes # 1.1 10^3/uL (0.8-4.8); Lymphocytes % 11.1 %; Mean Corpuscular HGB Conc 31.6 g/dL (30.0-36.0); Mean Corpuscular Volume 94.7 fl (81-99); Mean Platelet Volume 10.8 fL (7.4-10.4); Monocytes # 0.7 10^3/uL (0.2-0.9); Monocytes % 7.7 %; Neutrophils # 7.79 10^3/uL (1.8-7.7); Neutrophils % 80.6 %; Nucleated Red Blood Cells % 0 %; Platelet Count 212 10^3/cmm (130-400); Red Blood Count 4.54 10^6/uL (4.1-5.3); Red Cell Distribution Width 13.3 % (12.1-15.1); White Blood Count 9.7 10^3/uL (4.0-10.0)
[2023-04-20 05:42] LABS: Anion Gap 10.8 (5-19); Blood Urea Nitrogen 16 mg/dL (6-20); C Reactive Protein 99.5 mg/L (0.0-4.9); Carbon Dioxide 35 mmol/L (22-29); Chloride 95 mmol/L (98-107); Glomerular Filtration Rate 126.3 mL/min (90-130); Glucose 123 mg/dL (65-115); Osmolality Calculated 287 mOsm/kg (285-295); Potassium 3.8 mmol/L (3.5-5.1); Sodium 137 mmol/L (136-145)
--- NOTE | 2023-04-20 09:06 | CTR_ITS ---
PROCEDURE INFORMATION: Exam: CTA Chest With Contrast Exam date and time: 04/20/2023 10:47 AM Age: 57 years old Clinical indication: Shortness of breath; Patient HX: Injector error, attempted to scan PT a 2nd time for improved bolus timing, due to PT discomfort unable to do so. ; Additional info: Hypoxia TECHNIQUE: Imaging protocol: Computed tomographic angiography of the chest with contrast. Exam focused on the arteries. 3D rendering (Not supervised by radiologist): MIP and/or 3D reconstructed images were created by the technologist. Radiation optimization: All CT scans at this facility use at least one of these dose optimization techniques: automated exposure control; mA and/or kV adjustment per patient size (includes targeted exams where dose is matched to clinical indication); or iterative reconstruction. Contrast material: OMNIPAQUE 350; Contrast volume: 100 ml; Contrast route: INTRAVENOUS (IV); REPORTING DATA: Count of CT and Cardiac NM exams in prior 12 months: This patient has received [address] and 0 known cardiac nuclear medicine studies in the 12 months prior to the current study. COMPARISON: CT angio chest PE protcl [id number] 11/16/2021 5:07 PM RADIATION DOSE METRICS: Total DLP (mGy-cm): 505.69 FINDINGS: Pulmonary arteries: Nondiagnostic evaluation of the pulmonary arteries due to suboptimal contrast bolus timing. Aorta: Unremarkable. No aortic aneurysm. No aortic dissection. Lungs: Moderate centrilobular and paraseptal emphysema. There is some mild tree-in-bud nodularity in the bilateral lower lobes and left upper lobe. No focal airspace consolidation. Pleural spaces: Unremarkable. No pneumothorax. No pleural effusion. Heart: Unremarkable. No cardiomegaly. No pericardial effusion. Lymph nodes: Unremarkable. No enlarged lymph nodes. Adrenal glands: Low-density thickening of the adrenal glands. Bones/joints: Remote compression fractures involving T11 through L1. Soft tissues: Unremarkable. CT/CT angio chest PE protcl [id number] IMPRESSION: 1. Nondiagnostic evaluation of the pulmonary arteries due to suboptimal contrast bolus timing. The technologist reportedly attempted to scan the patient a 2nd time but due to patient discomfort, was unable to do so. 2. Tree-in-bud nodularity in the lungs bilaterally may reflect sequela of aspiration or atypical infection. COMMENTS: In the absence of a history or active diagnosis of lung cancer, it is recommended that this patient with emphysema be evaluated for enrollment in a low dose CT lung cancer screening program.
[2023-04-20] MEDS: losartan 50 mg Tablet 25 MG PO (09:47)
[2023-04-20] MEDS: buPROPion XL (24 HR) 150 mg Tablet PO (09:48)
[2023-04-20] MEDS: pantoprazole DR 40 mg Tablet PO (09:48)
[2023-04-20] MEDS: gabapentin 300 mg Capsule PO ×3 (09:48→22:29)
[2023-04-20] MEDS: lamoTRIgine 100 mg Tablet PO ×2 (09:48→17:37)
[2023-04-20] MEDS: levothyroxine 88 mcg Tablet PO (09:49)
[2023-04-20] MEDS: azithromycin 250 mg Tablet 500 MG PO (09:49)
[2023-04-20] MEDS: montelukast sodium 10 mg Tablet PO (09:49)
[2023-04-20] MEDS: apixaban 5 mg Tablet PO ×2 (09:51→17:38)
--- NOTE | 2023-04-20 10:01 | PC.NURSE ---
Dr. Bethea in patients room gave verbal orders to give mucinex 600 mg BID PO and Robitussin DM 5ml oral Q4H RN.
[2023-04-20] MEDS: guaiFENesin-dextromethorphan UDC 10 mL 5 ML PO (10:38)
[2023-04-20] MEDS: iohexol 350 mg/mL 500 mL Btl (per mL) IV (11:02)
[2023-04-20] MEDS: guaiFENesin 600 mg Tablet PO ×2 (11:19→17:37)
[2023-04-20] MEDS: cefTRIAXone 1,000 MG in sodium chloride 0.9% (plus) 50 ML 100 MG IV (11:19)
--- NOTE | 2023-04-20 12:06 | PM.PN ---
Subjective Subjective: Patient endorsing shortness of breath D-dimer is high she does take Eliquis at home which we have resumed, requested CTA Poor IV access She will need antibiotics No active wheezing Afebrile Vitals/I&O/Wt Last Vital Signs Temp 97.5 F L 04/20/23 11:34 Pulse 93 04/20/23 11:34 Resp 20 H 04/20/23 11:34 BP 130/84 04/20/23 11:34 Pulse Ox 90 04/20/23 11:34 O2 Del Method Nasal Cannula 04/20/23 11:34 O2 Flow Rate 5 04/20/23 08:00 FiO2 40 04/20/23 04:57 04/19/23 04/20/23 04/20/23 22:59 06:59 14:59 Intake Total 640 / 640 360 / 360 Balance 640 / 640 360 / 360 Weight last 48 hrs Weight 105.233 kg Physical Exam Narrative: No active wheezing Currently on 5 L Mild rhonchi at base of the lungs Discharge Abdomen distended however soft Low extremity no edema Appropriate mood and affect S1, S2 Nonfocal neuro exam Data 04/20/23 04:37 04/20/23 04:37 Micro: Microbiology 04/19/23 13:16 Gram Stain - Final Sputum - Expectorated Sputum 04/19/23 12:25 Blood Culture - Preliminary Blood SPECIMEN COLLECTED 04/19/23 12:15 Blood Culture - Preliminary Blood SPECIMEN COLLECTED A&P Assessment and plan (1) Left lower lobe pneumonia: (2) Smoking: (3) Obstructive sleep apnea hypopnea, severe: (4) Narcolepsy with cataplexy: (5) Bilateral pulmonary embolism: (6) Smoking addiction: Plan Acute COPD exacerbation related to pneumonia Continue antibiotics Requested CTA chest Continue Eliquis for her PE Cardiac diet Full code Plan to discharge her tomorrow if feeling better She will need home O2 evaluation before discharge I will add prednisone, Mucomyst and Robitussin Patient is stating that she does not want any chest compressions or intubation or defibrillation in case of cardiac arrest, will change goals of care to DNR/DNI Attestations Medical Necessity Statement*: Probable discharge tomorrow if feeling better Diagnoses Left lower lobe pneumonia J18.9 Smoking F17.200 Obstructive sleep apnea hypopnea, severe G47.33 Narcolepsy with cataplexy G47.411 Bilateral pulmonary embolism I26.99 Smoking addiction F17.200
[2023-04-20] MEDS: acetylcysteine 200 mg/mL SDV 4 mL 100 MG INHALATION ×2 (13:10→19:16)
[2023-04-20] MEDS: predniSONE 20 mg Tablet 40 MG PO (13:50)
[2023-04-20] MEDS: acetaminophen 500 mg Tablet PO (17:41)
[2023-04-20] MEDS: quetiapine XR (24HR) 50 mg Tablet 150 MG PO (22:30)
[2023-04-21] VITALS (7 sets, daily range): BP systolic 116–128; BP diastolic 71–79; PULSE 64–101; RESP 19–23; TEMP 36.1–36.4; O2SAT 78–100
[2023-04-21] MEDS: ipratropium-albuterol 3 mL Neb INHALATION ×2 (02:10→08:03)
[2023-04-21] MEDS: acetylcysteine 200 mg/mL SDV 4 mL 100 MG INHALATION ×2 (02:12→08:04)
[2023-04-21] MEDS: apixaban 5 mg Tablet PO (08:52)
[2023-04-21] MEDS: azithromycin 250 mg Tablet 500 MG PO (08:52)
[2023-04-21] MEDS: buPROPion XL (24 HR) 150 mg Tablet PO (08:53)
[2023-04-21] MEDS: predniSONE 20 mg Tablet 40 MG PO (08:55)
[2023-04-21] MEDS: montelukast sodium 10 mg Tablet PO (08:55)
[2023-04-21] MEDS: pantoprazole DR 40 mg Tablet PO (08:55)
[2023-04-21] MEDS: levothyroxine 88 mcg Tablet PO (08:55)
[2023-04-21] MEDS: losartan 50 mg Tablet 25 MG PO (08:56)
[2023-04-21] MEDS: gabapentin 300 mg Capsule PO (08:56)
[2023-04-21] MEDS: lamoTRIgine 100 mg Tablet PO (08:57)
[2023-04-21] MEDS: guaiFENesin 600 mg Tablet PO (08:57)
[2023-04-21] MEDS: cefTRIAXone 1,000 MG in sodium chloride 0.9% (plus) 50 ML 100 MG IV (08:58)
--- NOTE | 2023-04-21 11:05 | PM.DCS ---
Discharge Providers Date of Admission: 04/19/23 13:29 Date of Discharge: April 21, 2023 Attending Provider at Admission: Eduin Bethea MD Attending Provider at Discharge: Eduin Bethea MD Primary Care Provider: Bandar Cloud MD Diagnoses at Discharge Discharge Diagnosis (1) Left lower lobe pneumonia: Status: Acute (2) Smoking: Status: Acute (3) Obstructive sleep apnea hypopnea, severe: Status: Acute (4) Narcolepsy with cataplexy: Status: Acute (5) Bilateral pulmonary embolism: Status: Acute Permanent problem details: -on AC with Eliquis (6) Smoking addiction: Status: Acute Reason for Visit Reason for Visit: SOB Hospital Course Hospital Course 57-year female who is an active smoker, noncompliant, uses 2 to 3 L of oxygen at baseline was requiring 5 L in the ER she was diagnosed with lingular pneumonia she was treated with steroids and antibiotics, she was kept on BiPAP overnight to decrease her work of breathing, she does not qualify for BiPAP approval at the time of discharge, her D-dimer was high CT did not show PE. Patient will continue her Eliquis which she takes for PE, she will be discharged after new home O2 eval. I will discharge her on trilogy inhaler, Augmentin and prednisone Medrol pack tapering regimen. Physical Exam Narrative: No active wheezing Awake and alert GCS 15 No active respiratory distress S1, S2 Abdomen soft Discharge Data Studies Completed and Pending Completed Studies During Hospitalization Category Date Time Status CTA PE [CT angio chest PE protcl 14132] Routine Cat Scan 04/20/23 09:06 Completed XR chest 1V portable [id number] Stat Exams 04/19/23 10:17 Completed Pending at discharge Category Date Time Status Blood Culture Stat Lab 04/19/23 12:25 Results Sputum Culture and Gram Stain Stat Lab 04/19/23 13:16 Results Sputum Culture and Gram Stain Stat Lab 04/19/23 13:20 Received Radiology Impressions Chest X-Ray 04/19/23 10:17 IMPRESSION: 1. Infiltrate along the left heart border suspicious for lingular pneumonia. Superimposed chronic interstitial changes in both lungs. Chest CTA 04/20/23 09:06 IMPRESSION: 1. Nondiagnostic evaluation of the pulmonary arteries due to suboptimal contrast bolus timing. The technologist reportedly attempted to scan the patient a 2nd time but due to patient discomfort, was unable to do so. 2. Tree-in-bud nodularity in the lungs bilaterally may reflect sequela of aspiration or atypical infection. COMMENTS: In the absence of a history or active diagnosis of lung cancer, it is recommended that this patient with emphysema be evaluated for enrollment in a low dose CT lung cancer screening program. Laboratory Results WBC 9.7 10^3/uL (4.0-10.0) 04/20/23 04:37 RBC 4.54 10^6/uL (4.1-5.3) 04/20/23 04:37 Hgb 13.6 g/dL (11.5-15.3) 04/20/23 04:37 Hct 43.0 % (37.0-47.0) 04/20/23 04:37 MCV 94.7 fl (81-99) 04/20/23 04:37 MCH 30.0 pg (28.0-34.0) 04/20/23 04:37 MCHC 31.6 g/dL (30.0-36.0) 04/20/23 04:37 RDW 13.3 % (12.1-15.1) 04/20/23 04:37 Plt Count 212 10^3/cmm (130-400) 04/20/23 04:37 MPV 10.8 fL (7.4-10.4) H 04/20/23 04:37 Neut % (Auto) 80.6 % 04/20/23 04:37 Lymph % (Auto) 11.1 % 04/20/23 04:37 Harvey % (Auto) 7.7 % 04/20/23 04:37 Eos % (Auto) 0.1 % 04/20/23 04:37 Baso % (Auto) 0.1 % 04/20/23 04:37 Neut # (Auto) 7.79 10^3/uL (1.8-7.7) H 04/20/23 04:37 Lymph # (Auto) 1.1 10^3/uL (0.8-4.8) 04/20/23 04:37 Harvey # (Auto) 0.7 10^3/uL (0.2-0.9) 04/20/23 04:37 Eos # (Auto) 0.0 10^3/uL (0.0-0.8) 04/20/23 04:37 Baso # (Auto) 0.0 10^3/uL (0.0-0.1) 04/20/23 04:37 Nucleated RBC % (auto) 0 % 04/20/23 04:37 Nucleated RBCs # 0.0 /100WBC 04/20/23 04:37 D-Dimer 1.96 ug/mIFEU (0-0.59) H 04/19/23 10:53 Specimen Type Arterial 04/19/23 13:33 Sample Site Radial, left 04/19/23 13:33 ABG pH 7.37 (7.35-7.45) 04/19/23 13:33 ABG pCO2 56.8 mmHg (35-45) H 04/19/23 13:33 ABG pO2 58.5 mmHg (80.0-100.0) L 04/19/23 13:33 ABG HCO3 32.8 mmol/L (22-26) H 04/19/23 13:33 ABG Base Excess 5.7 mmol/L (-2.0-2.0) H 04/19/23 13:33 Glenn Test Pos 04/19/23 13:33 Hematocrit 44.2 % (37-47) 04/19/23 13:33 O2 Delivery Device Nc 04/19/23 13:33 O2 Liters/Min 5.0 % 04/19/23 13:33 Six Sigma Black Belt Engineer ID [place] 04/19/23 13:33 Sodium 137 mmol/L (136-145) 04/20/23 04:37 Potassium 3.8 mmol/L (3.5-5.1) 04/20/23 04:37 Chloride 95 mmol/L (98-107) L 04/20/23 04:37 Carbon Dioxide 35 mmol/L (22-29) H 04/20/23 04:37 Anion Gap 10.8 (5-19) 04/20/23 04:37 BUN 16 mg/dL (6-20) 04/20/23 04:37 Creatinine 0.5 mg/dL (0.5-0.9) 04/20/23 04:37 GFR Calculation 126.3 mL/min (90-130) 04/20/23 04:37 Glucose 123 mg/dL (65-115) H 04/20/23 04:37 Calculated Osmolality 287 mOsm/kg (285-295) 04/20/23 04:37 Calcium 9.0 mg/dL (8.5-10.5) 04/20/23 04:37 Magnesium 2.0 mg/dL (1.7-2.3) 04/20/23 04:37 Total Bilirubin 1.1 mg/dL (0.15-1.2) 04/19/23 10:53 AST 10 U/L (0-32) 04/19/23 10:53 ALT 10 U/L (0-33) 04/19/23 10:53 Alkaline Phosphatase 118 U/L (35-105) H 04/19/23 10:53 Troponin T Baseline 8 ng/L (0-10) 04/19/23 10:53 Troponin T 120 Minute 7.37 ng/L (0-10) 04/19/23 12:15 Delta Troponin T -0.63 ABS# (0-10) L 04/19/23 12:15 Troponin T Hi Sens 6Hr 6.00 ng/L (0-10) 04/19/23 17:15 Troponin T Hi Sens 6Hr Delta -2.00 ng/L (0-12) L 04/19/23 17:15 C-Reactive Protein 99.5 mg/L (0.0-4.9) H 04/20/23 04:37 Total Protein 7.4 g/dL (6.6-8.7) 04/19/23 10:53 Albumin 4.0 g/dL (3.5-5.2) 04/19/23 10:53 Globulin 3.4 g/dL (1.3-4.6) 04/19/23 10:53 Procalcitonin 0.08 ng/mL (0-0.5) 04/19/23 10:53 TSH 1.94 uIU/mL (0.27-4.20) 04/19/23 10:53 Urine Color Sherry (Yellow) 04/19/23 11:44 Urine Appearance Clear (CLEAR) 04/19/23 11:44 Urine pH 5 (5-7) 04/19/23 11:44 Ur Specific Rutledge 1.020 (1.005-1.030) 04/19/23 11:44 Urine Protein 1+ (Negative) H 04/19/23 11:44 Urine Glucose (UA) Norm (Normal) 04/19/23 11:44 Urine Ketones 1+ (Negative) H 04/19/23 11:44 Urine Blood Neg (Negative) 04/19/23 11:44 Urine Nitrate Negative (Negative) 04/19/23 11:44 Urine Bilirubin 1+ (Negative) H 04/19/23 11:44 Urine Urobilinogen 8 mg/dL (Negative) H 04/19/23 11:44 Ur Leukocyte Esterase Negative (Negative) 04/19/23 11:44 Urine RBC 5-10 /hpf (0-2) H 04/19/23 11:44 Urine WBC 0-4 /hpf (0-5) H 04/19/23 11:44 Ur Squamous Epith Cells 10-15 /hpf (0-5) H 04/19/23 11:44 Amorphous Sediment Not Reportable 04/19/23 11:44 Urine Bacteria Trace /hpf (NONE) 04/19/23 11:44 Urine Mucus 3+ /hpf 04/19/23 11:44 Vitals Last Vital Signs Temp 97.1 F L 04/21/23 08:00 Pulse 76 04/21/23 08:10 Resp 20 H 04/21/23 08:10 BP 116/73 04/21/23 08:00 Pulse Ox 78 L 04/21/23 09:42 O2 Del Method BiPAP 04/21/23 08:10 O2 Flow Rate 5 04/21/23 09:42 FiO2 35 04/21/23 08:10 Discharge Plan Discharge Patient Disposition: Home Condition: Stable Prescriptions: New amoxicillin-pot clavulanate 875-125 mg tablet 1 tab PO BID Qty: 14 0RF methylprednisolone [Medrol (Wilber)] 4 mg tablets,dose pack See Rx Instructions .ROUTE .COMPLEX Qty: 21 0RF Rx Instructions: orally per package directions Trestellafadi Ellipta 100-62.5-25 mcg blister with device 1 inh inhalation DAILY 30 Days Qty: 28 3RF Continued Eliquis 5 mg tablet 5 mg PO BID (DME) cam boot See Rx Instructions .Route .MEDSUPPLY Qty: 1 0RF Rx Instructions: As directed (DME) CPAP Machine/Supplies See Rx Instructions .Route .MEDSUPPLY Qty: 1 0RF Rx Instructions: Order for CPAP Machine and Supplies (DME) CPAP w/Humidifier, Headgear See Rx Instructions .Route .MEDSUPPLY Qty: 1 0RF Rx Instructions: As directed modafinil [Provigil] 200 mg tablet 200 mg PO BID Qty: 30 5RF quetiapine 150 mg tablet extended release 24 hr 150 mg PO BEDTIME Qty: 30 0RF lamotrigine 100 mg tablet 100 mg PO BID Qty: 60 0RF duloxetine [Cymbalta] 60 mg capsule,delayed release(DR/EC) 120 mg PO QAM Qty: 60 0RF ipratropium-albuterol 0.5 mg-3 mg(2.5 mg base)/3 mL solution for nebulization 3 ml inhalation Q6H PRN (Reason: wheezing) Qty: 90 3RF montelukast 10 mg tablet 10 mg PO DAILY albuterol sulfate 90 mcg/actuation HFA aerosol inhaler 2 inh INHALATION Q4H PRN (Reason: shortness of breath or wheezing) Qty: 18 0RF omeprazole 40 mg Capsule,Delayed Release(Dr/Ec) 40 mg PO DAILY gabapentin 300 mg Capsule 300 mg PO TID acetaminophen [Tylenol Ex Str Rapid Release] 500 mg Tablet 1,500 mg PO Q4H PRN (Reason: Pain) ibuprofen 200 mg Tablet 600 mg PO Q4H PRN (Reason: Pain) levothyroxine 88 mcg tablet 88 mcg PO DAILY trazodone 50 mg tablet 100 mg PO BEDTIME PRN (Reason: insomnia) valsartan 80 mg tablet 80 mg PO DAILY azelastine 137 mcg (0.1 %) aerosol,spray 1 spray INTRANASAL DAILY bupropion HCl 150 mg tablet extended release 24 hr 150 mg PO DAILY Discharge Orders: Discharge Order (Routine); Ordered 04/21/23 Ordered By: Eduin Bethea Other Ambulatory Orders: DME: Oxygen (Order) Location: None Selected Ordered By: Eduin Bethea Referrals: Bandar Cloud MD [Primary Care Provider] - Patient Instructions: Opioid Safety Discharge Attestations Time Spent in Discharge Care*: greater than 30 min Status at Discharge: Cognitive status at discharge: cognitively intact, Behavioral status at discharge: cooperative, Quality Metrics Clinical Quality Measures [ No reported AMI, CVA or VTE this stay] Coding Level of Care Code Acute Code for g Fwd Diagnoses Left lower lobe pneumonia J18.9 Smoking F17.200 Obstructive sleep apnea hypopnea, severe G47.33 Narcolepsy with cataplexy G47.411 Bilateral pulmonary embolism I26.99 Smoking addiction F17.200
== END 2023-04-21 12:15 | disposition home or self-care (01) | DRG 190 ==
LOC: ER 10:26 → MEDSURG 15:20
PROVIDERS: Admitting Provider Internal Medicine; Emergency Provider Family Medicine; PCP Family Medicine; Visit Provider Internal Medicine
DX: J44.0 Chronic obstructive pulmonary disease with (acute) lower respiratory infection (principal); J18.9 Pneumonia, unspecified organism; J44.1 Chronic obstructive pulmonary disease with (acute) exacerbation; Z87.01 Personal history of pneumonia (recurrent); F17.200 Nicotine dependence, unspecified, uncomplicated; Z99.81 Dependence on supplemental oxygen; Z79.01 Long term (current) use of anticoagulants; Z79.51 Long term (current) use of inhaled steroids; Z79.891 Long term (current) use of opiate analgesic; F41.9 Anxiety disorder, unspecified; F31.9 Bipolar disorder, unspecified; Z86.711 Personal history of pulmonary embolism; G89.29 Other chronic pain; K21.9 Gastro-esophageal reflux disease without esophagitis; Z86.19 Personal history of other infectious and parasitic diseases; E78.5 Hyperlipidemia, unspecified; I10 Essential (primary) hypertension; E03.9 Hypothyroidism, unspecified; Z66 Do not resuscitate; G47.411 Narcolepsy with cataplexy; G47.33 Obstructive sleep apnea (adult) (pediatric); E11.9 Type 2 diabetes mellitus without complications
CPT/HCPCS: 36415; 36600; 71045; 71275; 80048; 80053; 81001; 82803; 83735; 84145; 84443; 84484; 85025; 85378; 86140; 87040; 87070; 87077; 87205; 87641; 93005; 94640; 94660; 94664; 94760; 94762; 96374; 99285; G0378; J0696; J1940; J2930; J7512; J7608; Q0144; Q9967

== ENCOUNTER 2023-04-22 13:16 | Observation (INO) | payer MEDICARE, MEDICAID, SELFPAY ==
[2020-07-18 17:32] VITALS: BP 115/65; BMI 41.0
[2023-04-22] VITALS (16 sets, daily range): BP systolic 130–166; BP diastolic 82–102; PULSE 58–91; RESP 16–23; TEMP 36.4–36.7; O2SAT 90–98; BMI 40.6
--- NOTE | 2023-04-22 13:24 | XRR_ITS ---
PROCEDURE INFORMATION: Exam: XR Chest Exam date and time: 04/22/2023 1:40 PM Age: 57 years old Clinical indication: Cough and dyspnea; Additional info: Dyspnea/cough TECHNIQUE: Imaging protocol: Radiologic exam of the chest. Views: 1 view. COMPARISON: CR XR chest 1V portable [id number] 04/19/2023 11:04 AM FINDINGS: Tubes, catheters and devices: Overlying monitor leads. Lungs: Compared with previous exam April 19, 2023 interval improvement in mild patchy infiltrate in the lower lungs and particularly on the left. A component of mild chronic lung markings again suggested. No consolidation. Pleural spaces: Unremarkable. No pleural effusion. No pneumothorax. Heart/Mediastinum: Unremarkable. No cardiomegaly. Bones/joints: Visualized osseous structures show no acute abnormality. XR/XR chest 1V portable [id number] IMPRESSION: Interval improvement with prior exam as noted above and without acute findings.
--- NOTE | 2023-04-22 13:25 | ED_ITS ---
HPI - SOB/Dyspnea General: Chief Complaint: Shortness of Breath/Dyspnea Stated Complaint: sob, left sided back pain Time Seen by Provider: 04/22/23 13:18 Source: patient Mode of arrival: EMS History of Present Illness: HPI Narrative: 57-year-old female presents emergency room complaint of shortness of breath and cough. She was recently hospitalized with pneumonia. She has a long history of COPD and is O2 dependent she is normally on 3 L to be turned up to 6 L on arrival here she was given DuoNeb in route. She is having increased work of breathing. MD elicited complaint: shortness of breath, cough, pain with inspiration and chest pain Pertinent past history: COPD Onset (ago): hour(s) Context: recent illness Timing: constant Severity: moderate Exacerbating factors: movement and coughing Relieving factors: bronchodilators Known history of: COPD Associated symptoms: Reports chest congestion, cough and orthopnea; Deny abdominal pain, chest pain, diaphoresis, dizziness, extremity pain, fever(s), hemoptysis, lightheadedness, myalgias, nausea, palpitations, paresthesias, polydipsia, polyuria, rash, sense of impending doom, syncope or vomiting Treatment prior to arrival: oxygen and bronchodilator Related Data: Home oxygen amount: 3 liters Review of Systems Const: Denies: fever(s) or diaphoresis Card: Reports: dyspnea on exertion and orthopnea; Denies: chest pain, palpitations, lightheadedness or syncope Resp: Reports: dyspnea, productive cough (Minimal), wheezing and chest congestion; Denies: hemoptysis GI: Denies: abdominal pain, nausea or vomiting : Denies: flank pain, difficulty voiding, dysuria, urinary frequency or u rinary urgency Musc: Denies: extremity pain Skin/Breast: Denies: rash or pruritus Neuro: Denies: dizziness Endo: Denies: polyuria or polydipsia PFSH ED PFSH: Medical History Acute exacerbation of chronic obstructive airways disease Acute hypercapnic respiratory failure Acute on chronic respiratory failure with hypoxemia Anxiety and depression Bilateral pulmonary embolism -on AC with Eliquis Bipolar 2 disorder Chronic pain Chronic post-traumatic stress disorder (PTSD) COPD (chronic obstructive pulmonary disease) Chronic COPD. Chronic smoking. She is aware of the risks of cigarette smoking with COPD. COPD exacerbation Diabetes Fracture of distal end of right fibula GERD (gastroesophageal reflux disease) Hepatitis C virus infection cured after antiviral drug therapy Hyperlipidemia Hypertension Hypothyroidism Insomnia Left lower lobe pneumonia Narcolepsy with cataplexy Non-insulin dependent type 2 diabetes mellitus Obstructive sleep apnea Obstructive sleep apnea hypopnea, severe Ovarian cyst Pneumonia Pneumonia Psychiatric care Smoking Smoking addiction Spinal stenosis Tobacco use disorder, continuous Surgical History H/O section Status post left foot surgery Family History Mother Cancer Breast cancer Social History Smoking and tobacco status: never smoked Quit status (tobacco): considering quitting Second hand smoke exposure: No Alcohol intake: never Counseling given: No Substance/Drug Use: never Last substance use date: 10/26/19 Household members: children Current occupational status: unemployed Physical Exam Const: GENERAL APPEARANCE: cooperative ORIENTATION/CONSCIOUSNESS: Yes awake, Yes oriented to person, Yes oriented to place and Yes oriented to time HENMT: COMMON NORMALS: normocephalic, atraumatic and hearing grossly normal bilaterally HEAD & SCALP: normocephalic and atraumatic Resp: EFFORT & INSPECTION: Yes labored AUSCULTATION: rhonchi and wheezes Cardio: COMMON NORMALS: regular rhythm and No murmurs present (Cardio) RATE: tachycardic RHYTHM: regular rhythm GI: COMMON NORMALS: Soft to palpation and No hepatosplenomegaly present AUSCULTATION: Yes normoactive bowel sounds PALPATION: Yes Soft to palpation, No Tenderness to palpation present (GI), No Guarding due to palpation present (GI) and Yes No hepatosplenomegaly present Extremity: COMMON NORMALS: normal to inspection, capillary refill normal, no clubbing, cyanosis or edema, no calf tenderness and no pedal edema Neuro: SENSORIUM/ORIENTATION: Yes oriented to person, Yes oriented to place and Yes oriented to time Skin: COMMON NORMALS: no rashes or lesions noted GENERAL SKIN EXAM: no rashes or lesions noted Course Vital Signs: Vital signs: Vital Signs Temperature 97.1 F L 04/23/23 12:53 Pulse Rate 67 04/23/23 12:53 Respiratory Rate 24 H 04/23/23 12:53 Blood Pressure 143/79 04/23/23 12:53 Pulse Oximetry 92 04/23/23 12:53 Oxygen Delivery Me thod BiPAP 04/23/23 12:00 Oxygen Flow Rate 5 04/23/23 08:21 Fraction of Inspir ed Oxygen 35 04/23/23 06:18 MDM - SOB/Dyspnea Medical Decision Making Significant work of breathing patient placed on BiPAP with improvement. Decreased oxygenation. Will admit for COPD exacerbation. Steroids aggressive pulmonary toilet. Patient does have history of PE is on apixaban Differential Diagnosis Likely acute exacerbation of chronic obstructive airways disease and pulmonary embolism Medical Records I reviewed the patient's medical records. Lab Data I reviewed the patient's lab results. 04/23/23 06:37 04/23/23 06:37 Labs/Radiology: Radiology Impressions Chest X-Ray 04/22/23 13:24 IMPRESSION: Interval improvement with prior exam as noted above and without acute findings. Laboratory Results WBC 7.3 10^3/uL (4.0-10.0) 04/22/23 13:47 RBC 4.18 10^6/uL (4.1-5.3) 04/22/23 13:47 Hgb 12.8 g/dL (11.5-15.3) 04/22/23 13:47 Hct 41.2 % (37.0-47.0) 04/22/23 13:47 MCV 98.6 fl (81-99) 04/22/23 13:47 MCH 30.6 pg (28.0-34.0) 04/22/23 13:47 MCHC 31.1 g/dL (30.0-36.0) 04/22/23 13:47 RDW 13.5 % (12.1-15.1) 04/22/23 13:47 Plt Count 218 10^3/cmm (130-400) 04/22/23 13:47 MPV 10.7 fL (7.4-10.4) H 04/22/23 13:47 Neut % (Auto) 56.9 % 04/22/23 13:47 Lymph % (Auto) 32.2 % 04/22/23 13:47 Castro % (Auto) 9.5 % 04/22/23 13:47 Eos % (Auto) 0.7 % 04/22/23 13:47 Baso % (Auto) 0.3 % 04/22/23 13:47 Neut # (Auto) 4.13 10^3/uL (1.8-7.7) 04/22/23 13:47 Lymph # (Auto) 2.3 10^3/uL (0.8-4.8) 04/22/23 13:47 Castro # (Auto) 0.7 10^3/uL (0.2-0.9) 04/22/23 13:47 Eos # (Auto) 0.1 10^3/uL (0.0-0.8) 04/22/23 13:47 Baso # (Auto) 0.0 10^3/uL (0.0-0.1) 04/22/23 13:47 Nucleated RBC % (auto) 0 % 04/22/23 13:47 Nucleated RBCs # 0.0 /100WBC 04/22/23 13:47 Specimen Type Arterial 04/22/23 13:27 Sample Site Radial, right 04/22/23 13:27 ABG pH 7.40 (7.35-7.45) 04/22/23 13:27 ABG pCO2 58.8 mmHg (35-45) H 04/22/23 13:27 ABG pO2 54.8 mmHg (80.0-100.0) L 04/22/23 13:27 ABG HCO3 36.1 mmol/L (22-26) H 04/22/23 13:27 ABG O2 Saturation 96.3 04/22/23 13:27 ABG Base Excess 9.2 mmol/L (-2.0-2.0) H 04/22/23 13:27 Glenn Test Pos 04/22/23 13:27 A-a O2 Gradient 13.3 mmHg (5-10) H 04/22/23 13:27 Hematocrit 39.6 % (37-47) 04/22/23 13:27 Hgb O2 Saturation 92.4 % (95-100) L 04/22/23 13:27 Carboxyhemoglobin 4.6 %THgb (0.4-20.1) 04/22/23 13:27 Methemoglobin < 0.0 % (0.4-1.5) L 04/22/23 13:27 Total Hemoglobin 12.9 g/dL (12-16) 04/22/23 13:27 Sodium 142.0 mmol/L (131-143) 04/22/23 13:27 Potassium 3.8 mmol/L (3.5-5.0) 04/22/23 13:27 Glucose 152.0 mg/dL (70-115) H 04/22/23 13:27 Ionized Calcium 1.2 mmol/L (1.1-1.4) 04/22/23 13:27 O2 Delivery Device Nc 04/22/23 13:27 O2 Liters/Min 3.0 % 04/22/23 13:27 FiO2 32.0 % 04/22/23 13:27 Calender Feeder ID [place] 04/22/23 13:27 Sodium 137 mmol/L (136-145) 04/22/23 13:47 Potassium 3.9 mmol/L (3.5-5.1) 04/22/23 13:47 Chloride 94 mmol/L (98-107) L 04/22/23 13:47 Carbon Dioxide 35 mmol/L (22-29) H 04/22/23 13:47 Anion Gap 11.9 (5-19) 04/22/23 13:47 BUN 11 mg/dL (6-20) 04/22/23 13:47 Creatinine 0.5 mg/dL (0.5-0.9) 04/22/23 13:47 GFR Calculation 126.3 mL/min (90-130) 04/22/23 13:47 Glucose 132 mg/dL (65-115) H 04/22/23 13:47 Calculated Osmolality 285 mOsm/kg (285-295) 04/22/23 13:47 Calcium 8.8 mg/dL (8.5-10.5) 04/22/23 13:47 Total Bilirubin 0.2 mg/dL (0.15-1.2) 04/22/23 13:47 AST 16 U/L (0-32) 04/22/23 13:47 ALT 15 U/L (0-33) 04/22/23 13:47 Alkaline Phosphatase 107 U/L (35-105) H 04/22/23 13:47 Troponin T Baseline 6 ng/L (0-10) 04/22/23 13:47 Troponin T 120 Minute 6.00 ng/L (0-10) 04/22/23 15:42 Delta Troponin T 0 ABS# (0-10) 04/22/23 15:42 NT-Pro-B Natriuret Pep 46 pg/mL (0-125) 04/22/23 13:47 Total Protein 6.2 g/dL (6.6-8.7) L 04/22/23 13:47 Albumin 3.6 g/dL (3.5-5.2) 04/22/23 13:47 Globulin 2.6 g/dL (1.3-4.6) 04/22/23 13:47 Discharge Plan Discharge Patient Disposition: Admitted As Inpatient Admit Provider: Feng You Clinical Impression: Acute on chronic respiratory failure with hypoxemia, Acute exacerbation of chronic obstructive airways disease, Pulmonary embolism Condition: Stable Coding Level of Care Code ED [place] Driver for Parmjit Colin
[2023-04-22 13:38] LABS: ABG PCO2 58.8 mmHg (35-45); Arterial Blood Gas Hematocrit 39.6 % (37-47); Base Excess ABG 9.2 mmol/L (-2.0-2.0); Blood Gas Allen Test Pos; Blood Gas Sample Type Arterial; Carboxyhemoglobin 4.6 %THgb (0.4-20.1); HCO3 ABG 36.1 mmol/L (22-26); HGB O2 Sat 92.4 % (95-100); Ionized Calcium Level - ABG 1.2 mmol/L (1.1-1.4); Methemoglobin < 0.0 % (0.4-1.5); Oxygen Saturation ABG 96.3; PO2 ABG 54.8 mmHg (80.0-100.0); Potassium Level - ABG 3.8 mmol/L (3.5-5.0); Total Hemoglobin 12.9 g/dL (12-16)
[2023-04-22 13:40] LABS: Alveolar-Arterial Oxygen Gradi 13.3 mmHg (5-10); Blood Gas Operator Identificat MONRO; Blood Gas Sample Site Radial, right; Oxygen Device NC
[2023-04-22 14:18] LABS: Troponin(5th) Baseline 6 ng/L (0-10)
[2023-04-22 14:32] LABS: Alanine Aminotransferase 15 U/L (0-33); Albumin Level 3.6 g/dL (3.5-5.2); Alkaline Phosphatase 107 U/L (35-105); Blood Urea Nitrogen 11 mg/dL (6-20); Calcium 8.8 mg/dL (8.5-10.5); Carbon Dioxide 35 mmol/L (22-29); Chloride 94 mmol/L (98-107); Globulin 2.6 g/dL (1.3-4.6); Glomerular Filtration Rate 126.3 mL/min (90-130); Glucose 132 mg/dL (65-115); NT Pro B Type Natriuretic Pept 46 pg/mL (0-125); Osmolality Calculated 285 mOsm/kg (285-295); Sodium 137 mmol/L (136-145); Total Bilirubin 0.2 mg/dL (0.15-1.2); Total Protein 6.2 g/dL (6.6-8.7)
[2023-04-22 14:35] LABS: Anion Gap 11.9 (5-19); Aspartate Amino Transferase 16 U/L (0-32); Potassium 3.9 mmol/L (3.5-5.1)
[2023-04-22 14:40] LABS: Basophils % 0.3 %; Eosinophils # 0.1 10^3/uL (0.0-0.8); Eosinophils % 0.7 %; Hematocrit 41.2 % (37.0-47.0); Hemoglobin 12.8 g/dL (11.5-15.3); Lymphocytes # 2.3 10^3/uL (0.8-4.8); Lymphocytes % 32.2 %; Mean Corpuscular HGB Conc 31.1 g/dL (30.0-36.0); Mean Corpuscular Hemoglobin 30.6 pg (28.0-34.0); Mean Corpuscular Volume 98.6 fl (81-99); Mean Platelet Volume 10.7 fL (7.4-10.4); Monocytes # 0.7 10^3/uL (0.2-0.9); Monocytes % 9.5 %; Neutrophils # 4.13 10^3/uL (1.8-7.7); Neutrophils % 56.9 %; Nucleated Red Blood Cells % 0 %; Platelet Count 218 10^3/cmm (130-400); Red Blood Count 4.18 10^6/uL (4.1-5.3); Red Cell Distribution Width 13.5 % (12.1-15.1); White Blood Count 7.3 10^3/uL (4.0-10.0)
--- NOTE | 2023-04-22 15:01 | ECG_ITS ---
[facility] Test Date: 2023-04-22 Pat Name: Tomeka Marshall Department: Room: Gender: Female Stitch Bonding Machine Tender: : 1965 Requested By: Jason Ge Order Number: [id number] Umer MD: Tisha Wright M.D. Measurements Intervals [place] Rate: 67 P: 69 CA: 144 QRS: 86 QRSD: 87 T: 81 QT: 395 QTc: 419 Interpretive Statements SINUS RHYTHM WITH SINUS ARRHYTHMIA Compared to ECG 04/19/2023 16:43:23 No significant changes Electronically Signed On 04-22-2023 18:53:08 CDT by Tisha Wright M.D. [id number]
[2023-04-22] MEDS: morphine 4 mg/mL SDV 1 mL 2 MG IVP ×2 (15:11→15:49)
[2023-04-22] MEDS: dexamethasone 10 mg/mL INJ IM (15:15)
--- NOTE | 2023-04-22 16:07 | ECG_ITS ---
[facility] Test Date: 2023-04-22 Pat Name: Tomeka Marshall Department: Room: Gender: Female Payroll Master: : 1965 Requested By: Jason Ge Order Number: [id number] Umer MD: Tisha Wright M.D. Measurements Intervals [place] Rate: 59 P: 79 MD: 165 QRS: 87 QRSD: 97 T: 83 QT: 403 QTc: 400 Interpretive Statements SINUS BRADYCARDIA Compared to ECG 04/22/2023 15:01:44 Sinus rhythm no longer present Sinus arrhythmia no longer present Electronically Signed On 04-22-2023 18:41:58 CDT by Tisha Wright M.D. [id number]
[2023-04-22 16:12] LABS: Troponin 5 2HR Delta 0 ABS# (0-10)
--- NOTE | 2023-04-22 17:06 | PM.HP ---
Providers/Chief Complaint Admitting Physician: Feng You MD Primary Care Provider: Bandar Cloud MD Chief Complaint: sob, left sided back pain History of Present Illness Tomeka Marshall is a 57 year old female with PMH of COPD, 3 to 4 L home oxygen, pulmonary emboli on Eliquis, noninsulin-dependent type II, came in with chief complaint of?lt sided upper back pain as well as SOB,she was discharged from the hospital yesterday after being managed for pneumonia came back today with acute onset of lt upper back pain accompanied with some sob, xray chest done today has shown improvement in the pneumonic findings, CTA chest done on 04/20 failed to show any significant P/E , though the quality of the study was not that great,it also showed Tree-in-bud nodularity in the lungs bilaterally. She has denied any injury, lt upper back has tenderness,denied any significant cough,denied fever,chest pain, palpitation. Her other vitals and labs have been reviewed. Review of Systems General: Reports: 10 or more systems reviewed and unremarkable except in HPI and below Const: Denies: fever(s), chills, body aches, change in appetite or diaphoresis Card: Denies: palpitations, edema, swelling of feet/ankles, dyspnea on exertion, orthopnea or leg pain with exertion Resp: Reports: dyspnea; Denies: productive cough, wheezing or pain on inspiration GI: Denies: abdominal pain, nausea, vomiting, diarrhea or constipation : Denies: flank pain Musc: Denies: back pain, extremity pain or extremity swelling Neuro: Denies: headache(s), difficulty walking or confusion Medications/Allergies Home Medications Medication Instructions Recorded Confirmed Last Taken Type apixaban 5 mg tablet (Eliquis) 5 mg PO BID 02/12/20 04/22/23 04/22/23 History albuterol sulfate 90 mcg/actuation 2 inh inhalation Q4H PRN shortness 05/28/20 04/22/23 09/04/20 Rx aerosol inhaler of breath or wheezing #18 grams montelukast 10 mg tablet 10 mg PO DAILY 05/28/20 04/22/23 04/22/23 History gabapentin 300 mg capsule 300 mg PO TID 08/25/21 04/22/23 04/22/23 History omeprazole 40 mg capsule,delayed 40 mg PO DAILY 08/25/21 04/22/23 04/22/23 History release acetaminophen 500 mg tablet 1,500 mg PO Q4H PRN Pain 10/03/21 04/22/23 Unknown History ibuprofen 200 mg tablet 600 mg PO Q4H PRN Pain 10/03/21 04/22/23 10/03/21 History CPAP Machine/Supplies #1 ea 07/11/22 04/22/23 Unknown Rx CPAP w/Humidifier, Headgear #1 ea 07/11/22 04/22/23 Unknown Rx cam boot #1 ea 08/14/22 04/22/23 Unknown Rx duloxetine 60 mg capsule,delayed 120 mg PO QAM #60 caps 01/24/23 04/22/23 04/22/23 Rx release (Cymbalta) lamotrigine 100 mg tablet 100 mg PO BID #60 tabs 01/24/23 04/22/23 04/22/23 Rx quetiapine 150 mg tablet,extended 150 mg PO BEDTIME #30 tabs 01/24/23 04/22/23 04/21/23 Rx release 24 hr ipratropium 0.5 mg-albuterol 3 mg 3 ml inhalation Q6H PRN wheezing 02/19/23 04/22/23 04/22/23 Rx (2.5 mg base)/3 mL nebulization #90 mL soln azelastine 137 mcg (0.1 %) nasal 1 spray intranasal DAILY 04/19/23 04/22/23 04/22/23 History spray aerosol bupropion HCl 150 mg 24 hr tablet, 150 mg PO DAILY 04/19/23 04/22/23 04/22/23 History extended release levothyroxine 88 mcg tablet 88 mcg PO DAILY 04/19/23 04/22/23 04/22/23 History trazodone 50 mg tablet 100 mg PO BEDTIME PRN insomnia 04/19/23 04/22/23 04/21/23 History valsartan 80 mg tablet 80 mg PO DAILY 04/19/23 04/22/23 04/22/23 History amoxicillin 875 mg-potassium 1 tab PO BID #14 tabs 04/21/23 04/22/23 Unknown Rx clavulanate 125 mg tablet fluticasone fur. 100 mcg-umeclid 1 inh inhalation DAILY 1 month #28 04/21/23 04/22/23 Unknown Rx 62.5 mcg-vilant 25 mcg ea inhalat.powder (Trelegy Ellipta) methylprednisolone 4 mg tablets in See Rx Instructions PO .COMPLEX 04/21/23 04/22/23 Unknown Rx a dose pack (Medrol (Wilber)) #21 ea Allergies Allergy/AdvReac Type Severity Reaction Status Date / Time levofloxacin [From Levaquin] Allergy Intermediate ADR-Abdominal Verified 04/19/23 10:34 Pain Sulfa (Sulfonamide Allergy Intermediate ADR-Blurry Verified 04/19/23 10:34 Antibiotics) Vision nitrofurantoin Allergy Unknown Verified 04/19/23 10:34 PFSH Acute PFSH: Medical History (Updated 04/22/23 @ 22:03 by Feng You MD) Acute exacerbation of chronic obstructive airways disease Acute hypercapnic respiratory failure Acute on chronic respiratory failure with hypoxemia Anxiety and depression Bilateral pulmonary embolism -on AC with Eliquis Bipolar 2 disorder Chronic pain Chronic post-traumatic stress disorder (PTSD) COPD (chronic obstructive pulmonary disease) Chronic COPD. Chronic smoking. She is aware of the risks of cigarette smoking with COPD. COPD exacerbation Fracture of distal end of right fibula GERD (gastroesophageal reflux disease) Hepatitis C virus infection cured after antiviral drug therapy Hyperlipidemia Hypertension Hypothyroidism Insomnia Left lower lobe pneumonia Narcolepsy with cataplexy Non-insulin dependent type 2 diabetes mellitus Obstructive sleep apnea Obstructive sleep apnea hypopnea, severe Ovarian cyst Pneumonia Pneumonia Psychiatric care Smoking Smoking addiction Spinal stenosis Tobacco use disorder, continuous Surgical History H/O section Status post left foot surgery Family History Mother Cancer Breast cancer Social History Smoking and tobacco status: never smoked Quit status (tobacco): considering quitting Second hand smoke exposure: No Alcohol intake: never Counseling given: No Substance/Drug Use: never Last substance use date: 10/26/19 Household members: children Current occupational status: unemployed Vitals/I&O/Wt Last Vital Signs Temp 98.0 F 04/22/23 13:32 Pulse 72 04/22/23 16:34 Resp 20 H 04/22/23 15:49 BP 130/84 04/22/23 16:00 Pulse Ox 96 04/22/23 16:34 O2 Del Method Nasal Cannula 04/22/23 13:32 O2 Flow Rate 3 04/22/23 13:32 FiO2 40 04/22/23 13:55 Weight last 48 hrs Weight 114.305 kg Physical Exam Const: COMMON NORMALS: patient oriented x3 HENMT: COMMON NORMALS: normocephalic and atraumatic HEAD & SCALP: normocephalic and atraumatic Cardio: COMMON NORMALS: regular rate, regular rhythm, S1 normal heart sound present, S2 normal heart sound present, No gallops present (Cardio), No murmurs present (Cardio), No rub (Cardio) and Peripheral pulses 2+ throughout RATE: regular rate RHYTHM: regular rhythm HEART SOUNDS: S1 normal heart sound present and S2 normal heart sound present PERIPHERAL PULSES: Peripheral pulses 2+ throughout GI: COMMON NORMALS: Normal to inspection, nondistended, normoactive bowel sounds present, Soft to palpation, non-tender, No hepatosplenomegaly present and no masses AUSCULTATION: Yes normoactive bowel sounds PALPATION: Yes Soft to palpation and Yes No hepatosplenomegaly present RECTAL EXAM: deferred Extremity: COMMON NORMALS: no clubbing, cyanosis or edema and no pedal edema Neuro: COMMON NORMALS: patient oriented x3 Data 04/22/23 13:47 04/22/23 13:47 A&P Assessment and plan (1) Diabetes: (2) Hypertension: (3) Hypothyroidism: Qualifiers: Hypothyroidism type: unspecified Qualified Code(s): E03.9 - Hypothyroidism, unspecified Plan 57 year old female with PMH of COPD, 3 to 4 L home oxygen, pulmonary emboli on Eliquis, noninsulin-dependent type II, came in with chief complaint of?lt sided upper back pain as well as SOB,she was discharged from the hospital yesterday after being managed for pneumonia came back today with acute onset of lt upper back pain accompanied with some sob, xray chest done today has shown improvement in the pneumonic findings, CTA chest done on 04/20 failed to show any significant P/E , though the quality of the study was not that great,it also showed Tree-in-bud nodularity in the lungs bilaterally. She has denied any injury, lt upper back has tenderness,denied any significant cough,denied fever,chest pain, palpitation. Assessment : Pneumonia : COPD H/O P/E H/O Hypothyroidism H/O Hypertension Lt upper back pain Plan: Continue Augmentin for 7 days Duo nebs Dexamethasone 10 mg I.V Daily Continue eliquis Continue levothyroxine Supplemental oxygen as needed Code status :Full Code DVT PPX: Eliquis will work for it Attestations Medical Necessity Statement*: Patient needs to be in the hospital for the management of pneumonia. Coding Level of Care Code Acute Code for Chg Fwd Diagnoses Diabetes E11.9 Hypertension I10 Hypothyroidism E03.9 Hypothyroidism type: unspecified
[2023-04-22] MEDS: amoxicillin-clav 875-125 mg Tablet 1 TAB PO (18:29)
[2023-04-22] MEDS: apixaban 5 mg Tablet PO (18:30)
[2023-04-22] MEDS: lamoTRIgine 100 mg Tablet PO (18:30)
[2023-04-22] MEDS: ipratropium-albuterol 3 mL Neb INHALATION (19:28)
[2023-04-22] MEDS: budesonide 0.5 mg/2 mL Neb INHALATION (19:28)
[2023-04-22] MEDS: acetaminophen 325 mg Tablet 650 MG PO (20:18)
[2023-04-22] MEDS: gabapentin 300 mg Capsule PO (20:18)
[2023-04-22] MEDS: trazodone 50 mg Tablet 100 MG PO (20:18)
[2023-04-22] MEDS: quetiapine XR (24HR) 50 mg Tablet 150 MG PO (20:44)
[2023-04-22 21:24] LABS: Troponin 5 6HR Delta 0 ng/L (0-12)
[2023-04-23] VITALS (9 sets, daily range): BP systolic 139–149; BP diastolic 59–89; PULSE 59–68; RESP 17–24; TEMP 36.2–36.5; O2SAT 92–97
[2023-04-23] MEDS: duloxetine 60 mg Capsule 120 MG PO (05:56)
[2023-04-23 06:49] LABS: Basophils % 0.2 %; Eosinophils % 0.2 %; Hematocrit 39.2 % (37.0-47.0); Hemoglobin 12.3 g/dL (11.5-15.3); Lymphocytes # 1.3 10^3/uL (0.8-4.8); Lymphocytes % 24.5 %; Mean Corpuscular HGB Conc 31.4 g/dL (30.0-36.0); Mean Corpuscular Volume 98.7 fl (81-99); Monocytes # 0.3 10^3/uL (0.2-0.9); Monocytes % 5.9 %; Neutrophils # 3.74 10^3/uL (1.8-7.7); Neutrophils % 68.5 %; Nucleated Red Blood Cells % 0 %; Platelet Count 195 10^3/cmm (130-400); Red Blood Count 3.97 10^6/uL (4.1-5.3); Red Cell Distribution Width 13.2 % (12.1-15.1); White Blood Count 5.5 10^3/uL (4.0-10.0)
[2023-04-23 07:04] LABS: Alanine Aminotransferase 18 U/L (0-33); Albumin Level 3.4 g/dL (3.5-5.2); Alkaline Phosphatase 89 U/L (35-105); Anion Gap 9.3 (5-19); Aspartate Amino Transferase 14 U/L (0-32); Blood Urea Nitrogen 9 mg/dL (6-20); Calcium 8.9 mg/dL (8.5-10.5); Carbon Dioxide 34 mmol/L (22-29); Chloride 97 mmol/L (98-107); Globulin 2.5 g/dL (1.3-4.6); Glomerular Filtration Rate 163.4 mL/min (90-130); Glucose 166 mg/dL (65-115); Magnesium 1.8 mg/dL (1.7-2.3); Osmolality Calculated 284 mOsm/kg (285-295); Potassium 4.3 mmol/L (3.5-5.1); Sodium 136 mmol/L (136-145); Total Bilirubin 0.2 mg/dL (0.15-1.2); Total Protein 5.9 g/dL (6.6-8.7)
[2023-04-23 07:10] LABS: Procalcitonin 0.02 ng/mL (0-0.5)
[2023-04-23] MEDS: ipratropium-albuterol 3 mL Neb INHALATION (07:26)
[2023-04-23] MEDS: budesonide 0.5 mg/2 mL Neb INHALATION (07:26)
[2023-04-23] MEDS: buPROPion XL (24 HR) 150 mg Tablet PO (08:39)
[2023-04-23] MEDS: gabapentin 300 mg Capsule PO (08:39)
[2023-04-23] MEDS: apixaban 5 mg Tablet PO (08:39)
[2023-04-23] MEDS: levothyroxine 88 mcg Tablet PO (08:39)
[2023-04-23] MEDS: amoxicillin-clav 875-125 mg Tablet 1 TAB PO (08:39)
[2023-04-23] MEDS: pantoprazole DR 40 mg Tablet PO (08:39)
[2023-04-23] MEDS: montelukast sodium 10 mg Tablet PO (08:39)
[2023-04-23] MEDS: lamoTRIgine 100 mg Tablet PO (08:43)
[2023-04-23] MEDS: dexamethasone 10 mg/mL INJ IVP (08:43)
[2023-04-23] MEDS: losartan 50 mg Tablet 25 MG PO (08:45)
--- NOTE | 2023-04-23 10:30 | P.DS_ITS ---
Discharge Providers Date of Admission: 04/22/23 16:55 Date of Discharge: April 23, 2023 Attending Provider at Admission: Feng You MD Attending Provider at Discharge: Feng You MD Primary Care Provider: Bandar Cloud MD Diagnoses at Discharge Discharge Diagnosis (1) Diabetes: Status: Acute (2) Hypertension: Status: Acute (3) Hypothyroidism: Status: Acute Qualifiers: Hypothyroidism type: unspecified Qualified Code(s): E03.9 - Hypothyroidism, unspecified Reason for Visit Reason for Visit: sob, left sided back pain Hospital Course Hospital Course 57 year old female with PMH of? COPD, 3 to 4 L home oxygen, pulmonary emboli on Eliquis, noninsulin-dependent type II, came in with chief complaint of?lt sided upper back pain as well as SOB,she was discharged from the hospital yesterday after being managed for pneumonia came back today with acute onset of lt upper back pain accompanied with some sob, xray chest done today has shown improvement in the pneumonic findings, CTA chest done on 04/20 failed to show any significant P/E , though the quality of the study was not that great,it also showed? Tree-in-bud nodularity in the lungs bilaterally. She has denied any injury, lt upper back has tenderness,denied any significant cough,denied fever,chest pain, palpitation. She was admitted for the management of left-sided upper back pain, possibly musculoskeletal, was managed conservatively with pain medication, she was also continued on her Augmentin for management of pneumonia, was continued on DuoNebs, steroids, responded fairly well, at the time of discharge, left-sided upper back pain had improved. She was asked to complete the course of Augmentin, as well as, Medrol Dosepak.She was discharged stable condition to home. Physical Exam Const: COMMON NORMALS: patient oriented x3 HENMT: COMMON NORMALS: normocephalic and atraumatic HEAD & SCALP: normocephalic and atraumatic Cardio: COMMON NORMALS: regular rate, regular rhythm, S1 normal heart sound present, S2 normal heart sound present, No gallops present (Cardio), No murmurs present (Cardio), No rub (Cardio) and Peripheral pulses 2+ throughout RATE: regular rate RHYTHM: regular rhythm HEART SOUNDS: S1 normal heart sound present and S2 normal heart sound present PERIPHERAL PULSES: Peripheral pulses 2+ throughout GI: COMMON NORMALS: Normal to inspection, nondistended, normoactive bowel sounds present, Soft to palpation, non-tender, No hepatosplenomegaly present and no masses AUSCULTATION: Yes normoactive bowel sounds PALPATION: Yes Soft to palpation and Yes No hepatosplenomegaly present RECTAL EXAM: deferred Extremity: COMMON NORMALS: no clubbing, cyanosis or edema and no pedal edema Neuro: COMMON NORMALS: patient oriented x3 Discharge Data Studies Completed and Pending Completed Studies During Hospitalization Category Date Time Status XR chest 1V portable [id number] Stat Exams 04/22/23 13:24 Completed Pending at discharge Category Date Time Status Complete Blood Count w/Auto AM LABS Lab 04/24/23 04:00 Ordered Complete Blood Count w/Auto AM LABS Lab 04/25/23 04:00 Ordered Comprehensive Metabolic Panel AM LABS Lab 04/24/23 04:00 Ordered Comprehensive Metabolic Panel AM LABS Lab 04/25/23 04:00 Ordered Radiology Impressions Chest X-Ray 04/22/23 13:24 IMPRESSION: Interval improvement with prior exam as noted above and without acute findings. Laboratory Results WBC 5.5 10^3/uL (4.0-10.0) 04/23/23 06:37 Corrected WBC Cancelled 04/23/23 04:31 RBC 3.97 10^6/uL (4.1-5.3) L 04/23/23 06:37 Hgb 12.3 g/dL (11.5-15.3) 04/23/23 06:37 Hct 39.2 % (37.0-47.0) 04/23/23 06:37 MCV 98.7 fl (81-99) 04/23/23 06:37 MCH 31.0 pg (28.0-34.0) 04/23/23 06:37 MCHC 31.4 g/dL (30.0-36.0) 04/23/23 06:37 RDW 13.2 % (12.1-15.1) 04/23/23 06:37 Plt Count 195 10^3/cmm (130-400) 04/23/23 06:37 MPV 10.0 fL (7.4-10.4) 04/23/23 06:37 Gran % Cancelled 04/23/23 04:31 Neut % (Auto) 68.5 % 04/23/23 06:37 Lymph % (Auto) 24.5 % 04/23/23 06:37 Fleming % (Auto) 5.9 % 04/23/23 06:37 Eos % (Auto) 0.2 % 04/23/23 06:37 Baso % (Auto) 0.2 % 04/23/23 06:37 Neut # (Auto) 3.74 10^3/uL (1.8-7.7) 04/23/23 06:37 Lymph # (Auto) 1.3 10^3/uL (0.8-4.8) 04/23/23 06:37 Fleming # (Auto) 0.3 10^3/uL (0.2-0.9) 04/23/23 06:37 Eos # (Auto) 0.0 10^3/uL (0.0-0.8) 04/23/23 06:37 Baso # (Auto) 0.0 10^3/uL (0.0-0.1) 04/23/23 06:37 Absolute Gran (auto) Cancelled 04/23/23 04:31 Nucleated RBC % (auto) 0 % 04/23/23 06:37 Nucleated RBCs # 0.0 /100WBC 04/23/23 06:37 Specimen Type Arterial 04/22/23 13:27 Sample Site Radial, right 04/22/23 13:27 ABG pH 7.40 (7.35-7.45) 04/22/23 13:27 ABG pCO2 58.8 mmHg (35-45) H 04/22/23 13:27 ABG pO2 54.8 mmHg (80.0-100.0) L 04/22/23 13:27 ABG HCO3 36.1 mmol/L (22-26) H 04/22/23 13:27 ABG O2 Saturation 96.3 04/22/23 13:27 ABG Base Excess 9.2 mmol/L (-2.0-2.0) H 04/22/23 13:27 Glenn Test Pos 04/22/23 13:27 A-a O2 Gradient 13.3 mmHg (5-10) H 04/22/23 13:27 Hematocrit 39.6 % (37-47) 04/22/23 13:27 Hgb O2 Saturation 92.4 % (95-100) L 04/22/23 13:27 Carboxyhemoglobin 4.6 %THgb (0.4-20.1) 04/22/23 13:27 Methemoglobin < 0.0 % (0.4-1.5) L 04/22/23 13:27 Total Hemoglobin 12.9 g/dL (12-16) 04/22/23 13:27 Sodium 142.0 mmol/L (131-143) 04/22/23 13:27 Potassium 3.8 mmol/L (3.5-5.0) 04/22/23 13:27 Glucose 152.0 mg/dL (70-115) H 04/22/23 13:27 Ionized Calcium 1.2 mmol/L (1.1-1.4) 04/22/23 13:27 O2 Delivery Device Nc 04/22/23 13:27 O2 Liters/Min 3.0 % 04/22/23 13:27 FiO2 32.0 % 04/22/23 13:27 Finance Teacher ID Monro 04/22/23 13:27 Sodium 136 mmol/L (136-145) 04/23/23 06:37 Potassium 4.3 mmol/L (3.5-5.1) 04/23/23 06:37 Chloride 97 mmol/L (98-107) L 04/23/23 06:37 Carbon Dioxide 34 mmol/L (22-29) H 04/23/23 06:37 Anion Gap 9.3 (5-19) 04/23/23 06:37 BUN 9 mg/dL (6-20) 04/23/23 06:37 Creatinine 0.4 mg/dL (0.5-0.9) L 04/23/23 06:37 GFR Calculation 163.4 mL/min (90-130) H 04/23/23 06:37 Glucose 166 mg/dL (65-115) H 04/23/23 06:37 Calculated Osmolality 284 mOsm/kg (285-295) L 04/23/23 06:37 Calcium 8.9 mg/dL (8.5-10.5) 04/23/23 06:37 Magnesium 1.8 mg/dL (1.7-2.3) 04/23/23 06:37 Total Bilirubin 0.2 mg/dL (0.15-1.2) 04/23/23 06:37 AST 14 U/L (0-32) 04/23/23 06:37 ALT 18 U/L (0-33) 04/23/23 06:37 Alkaline Phosphatase 89 U/L (35-105) 04/23/23 06:37 Troponin T Baseline 6 ng/L (0-10) 04/22/23 13:47 Troponin T 120 Minute 6.00 ng/L (0-10) 04/22/23 15:42 Delta Troponin T 0 ABS# (0-10) 04/22/23 15:42 Troponin T Hi Sens 6Hr 6.00 ng/L (0-10) 04/22/23 20:35 Troponin T Hi Sens 6Hr Delta 0 ng/L (0-12) 04/22/23 20:35 NT-Pro-B Natriuret Pep 46 pg/mL (0-125) 04/22/23 13:47 Total Protein 5.9 g/dL (6.6-8.7) L 04/23/23 06:37 Albumin 3.4 g/dL (3.5-5.2) L 04/23/23 06:37 Globulin 2.5 g/dL (1.3-4.6) 04/23/23 06:37 Procalcitonin 0.02 ng/mL (0-0.5) 04/23/23 06:37 Vitals Last Vital Signs Temp 97.5 F L 04/23/23 08:00 Pulse 59 L 04/23/23 08:00 Resp 18 04/23/23 08:00 BP 149/59 04/23/23 08:45 Pulse Ox 95 04/23/23 08:00 O2 Del Method Nasal Cannula 04/23/23 08:00 O2 Flow Rate 5 04/23/23 08:21 FiO2 35 04/23/23 06:18 Discharge Plan Discharge Patient Disposition: Home Condition: Stable Prescriptions: Continued Eliquis 5 mg tablet 5 mg PO BID (DME) cam boot See Rx Instructions .Route .MEDSUPPLY Qty: 1 0RF Rx Instructions: As directed (DME) CPAP Machine/Supplies See Rx Instructions .Route .MEDSUPPLY Qty: 1 0RF Rx Instructions: Order for CPAP Machine and Supplies (DME) CPAP w/Humidifier, Headgear See Rx Instructions .Route .MEDSUPPLY Qty: 1 0RF Rx Instructions: As directed quetiapine 150 mg tablet extended release 24 hr 150 mg PO BEDTIME Qty: 30 0RF lamotrigine 100 mg tablet 100 mg PO BID Qty: 60 0RF duloxetine [Cymbalta] 60 mg capsule,delayed release(DR/EC) 120 mg PO QAM Qty: 60 0RF ipratropium-albuterol 0.5 mg-3 mg(2.5 mg base)/3 mL solution for nebulization 3 ml inhalation Q6H PRN (Reason: wheezing) Qty: 90 3RF montelukast 10 mg tablet 10 mg PO DAILY albuterol sulfate 90 mcg/actuation HFA aerosol inhaler 2 inh INHALATION Q4H PRN (Reason: shortness of breath or wheezing) Qty: 18 0RF omeprazole 40 mg Capsule,Delayed Release(Dr/Ec) 40 mg PO DAILY gabapentin 300 mg Capsule 300 mg PO TID acetaminophen 500 mg Tablet 1,500 mg PO Q4H PRN (Reason: Pain) ibuprofen 200 mg Tablet 600 mg PO Q4H PRN (Reason: Pain) levothyroxine 88 mcg tablet 88 mcg PO DAILY trazodone 50 mg tablet 100 mg PO BEDTIME PRN (Reason: insomnia) valsartan 80 mg tablet 80 mg PO DAILY azelastine 137 mcg (0.1 %) aerosol,spray 1 spray INTRANASAL DAILY bupropion HCl 150 mg tablet extended release 24 hr 150 mg PO DAILY methylprednisolone [Medrol (Wilber)] 4 mg tablets,dose pack See Rx Instructions .ROUTE .COMPLEX Qty: 21 0RF Rx Instructions: orally per package directions amoxicillin-pot clavulanate 875-125 mg tablet 1 tab PO BID Qty: 14 0RF Trelegy Ellipta 100-62.5-25 mcg blister with device 1 inh inhalation DAILY 30 Days Qty: 28 3RF Discharge Orders: Discharge Order (Routine); Ordered 04/23/23 Ordered By: Feng You Referrals: Bandar Cloud MD [Primary Care Provider] - 7-10 days (If you don't hear from your primary by call and make a follow up appointment for 7-10 days. ) Patient Instructions: COPD (Chronic Obstructive Pulmonary Disease) (DC), COPD Stoplight, Opioid Safety Discharge Attestations Time Spent in Discharge Care*: less than 30 min Status at Discharge: Cognitive status at discharge: cognitively intact , Behavioral status at discharge: cooperative , Quality Metrics Clinical Quality Measures [ No reported AMI, CVA or VTE this stay] Coding Level of Care Code Acute Code for Chg Fwd Diagnoses Diabetes E11.9 Hypertension I10 Hypothyroidism E03.9 Hypothyroidism type: unspecified
== END 2023-04-23 12:42 | disposition home or self-care (01) ==
LOC: ER 14:36 → MEDSURG 16:55
PROVIDERS: Admitting Provider Internal Medicine; Emergency Provider Family Medicine; PCP Family Medicine; Visit Provider Internal Medicine
DX: M54.89 Other dorsalgia (principal); J44.9 Chronic obstructive pulmonary disease, unspecified; K21.9 Gastro-esophageal reflux disease without esophagitis; J18.9 Pneumonia, unspecified organism; E11.9 Type 2 diabetes mellitus without complications; F17.210 Nicotine dependence, cigarettes, uncomplicated; I10 Essential (primary) hypertension; E03.9 Hypothyroidism, unspecified; Z86.711 Personal history of pulmonary embolism; Z99.81 Dependence on supplemental oxygen; Z79.01 Long term (current) use of anticoagulants; J96.11 Chronic respiratory failure with hypoxia; M19.90 Unspecified osteoarthritis, unspecified site
CPT/HCPCS: 36415; 36600; 71045; 80051; 80053; 82330; 82805; 83735; 83880; 84145; 84484; 85025; 93005; 94640; 94660; 96372; 96374; 96375; 96376; 99291; G0378; J1100; J2270; J7626

== ENCOUNTER 2023-05-08 18:02 | Emergency (ER) | payer MEDICARE, MEDICAID, SELFPAY ==
[2020-07-18 17:32] VITALS: BP 115/65; BMI 41.0
--- NOTE | 2023-05-08 | CTR_ITS ---
PROCEDURE INFORMATION: Exam: CT Abdomen And Pelvis With Contrast Exam date and time: 05/08/2023 7:46 PM Age: 57 years old Clinical indication: Abdominal pain; Generalized; Additional info: Abd pain TECHNIQUE: Imaging protocol: Computed tomography of the abdomen and pelvis with contrast. Radiation optimization: All CT scans at this facility use at least one of these dose optimization techniques: automated exposure control; mA and/or kV adjustment per patient size (includes targeted exams where dose is matched to clinical indication); or iterative reconstruction. Contrast material: OMNI 350; Contrast volume: 100 ml; Contrast route: INTRAVENOUS (IV); REPORTING DATA: Count of CT and Cardiac NM exams in prior 12 months: This patient has received 2 known CTs and 0 known cardiac nuclear medicine studies in the 12 months prior to the current study. COMPARISON: CT abdomen pelvis w con* [id number] 09/02/2022 1:29 AM RADIATION DOSE METRICS: Total DLP (mGy-cm): 979.13 FINDINGS: Lungs: Lung bases are clear. Liver: There is no focal abnormality within the liver. Gallbladder and bile ducts: There has been a cholecystectomy. There is the dilatation of the biliary tree with common bile duct measuring up to 18 mm and minimal intrahepatic biliary tract dilatation. This is not unusual post cholecystectomy. Pancreas: The pancreas is normal. Spleen: The spleen is normal. Adrenal glands: The adrenal glands are normal. Kidneys and ureters: The kidneys are normal. There is no evidence of hydronephrosis. Stomach and bowel: There is no evidence of colitis/diverticulitis. There is no evidence of intestinal obstruction. Appendix: A normal appendix is identified. Intraperitoneal space: There is no evidence of free intraperitoneal fluid. Vasculature: The aorta demonstrates moderate atherosclerotic calcification. There is no evidence of an abdominal aortic aneurysm. Lymph nodes: There is no evidence of lymphadenopathy. Urinary bladder: Unremarkable as visualized. Reproductive: 3.6 cm sized left adnexal cyst. There is some exophytic calcification in the right side of the uterus, possibly calcified fibroid. There is a 1.5 cm right adnexal cyst. Bones/joints: There is chronic compression deformity of the superior endplate of L1, chronic wedging compression fracture of T12 and of the inferior endplate of T11. Soft tissues: Unremarkable. CT/CT abdomen pelvis w con* [id number] IMPRESSION: 1. 3.6 cm left adnexal cyst. 2. Post cholecystectomy changes with dilatation of the common bile duct. 3. No acute finding.
[2023-05-08 18:04] VITALS: BP 164/108; PULSE 97; TEMP 38.2; O2SAT 94; BMI 37.9
--- NOTE | 2023-05-08 18:13 | XRR_ITS ---
PROCEDURE INFORMATION: Exam: XR Chest Exam date and time: 05/08/2023 6:17 PM Age: 57 years old Clinical indication: Shortness of breath; Additional info: Fever TECHNIQUE: Imaging protocol: Radiologic exam of the chest. Views: 1 view. COMPARISON: CR XR chest 1V portable [id number] 04/22/2023 1:40 PM FINDINGS: Lungs: Unremarkable. No consolidation. Pleural spaces: Unremarkable. No pleural effusion. No pneumothorax. Heart/Mediastinum: Unremarkable. No cardiomegaly. Bones/joints: Unremarkable. XR/XR chest 1V portable [id number] IMPRESSION: No acute findings.
--- NOTE | 2023-05-08 18:18 | ED_ITS ---
HPI - Weakness General: Chief complaint: Weakness Stated complaint: Flank pain Time Seen by Provider: 05/08/23 18:11 Source: patient and EMS Mode of arrival: EMS Limitations: no limitations History of Present Illness: 57-year-old female here with EMS for flank pain. States been having right-sided flank pain over the last 2 days states it is worse today rated an 8 out of 10 she states she also had some weakness is febrile here 100.8 she recently discharged here 2 weeks ago for pneumonia she has had some dyspnea. Patient wears 3 L of oxygen at home is on her 3 L here and is 92%. Denies any vomiting or diarrhea. Associated symptoms: Reports fever(s); Denies chest pain, chills, dysuria, headache(s), nausea or vomiting Review of Systems Const: Reports: fever(s) and malaise; Denies: chills, body aches or change in appetite ENMT: Denies: throat pain or dental pain Card: Denies: chest pain Resp: Reports: dyspnea GI: Denies: abdominal pain, nausea, vomiting or diarrhea : Reports: flank pain; Denies: dysuria Musc: Denies: neck pain or back pain Skin/Breast: Denies: rash Neuro: Denies: headache(s) PFSH ED PFSH: Medical History Acute exacerbation of chronic obstructive airways disease Acute hypercapnic respiratory failure Acute on chronic respiratory failure with hypoxemia Anxiety and depression Bilateral pulmonary embolism -on AC with Eliquis Bipolar 2 disorder Chronic pain Chronic post-traumatic stress disorder (PTSD) COPD (chronic obstructive pulmonary disease) Chronic COPD. Chronic smoking. She is aware of the risks of cigarette smoking with COPD. COPD exacerbation Diabetes Fracture of distal end of right fibula GERD (gastroesophageal reflux disease) Hepatitis C virus infection cured after antiviral drug therapy Hyperlipidemia Hypertension Hypothyroidism Insomnia Left lower lobe pneumonia Narcolepsy with cataplexy Non-insulin dependent type 2 diabetes mellitus Obstructive sleep apnea Obstructive sleep apnea hypopnea, severe Ovarian cyst Pneumonia Pneumonia Psychiatric care Smoking Smoking addiction Spinal stenosis Tobacco use disorder, continuous Surgical History H/O section Status post left foot surgery Family History Mother Cancer Breast cancer Social History Smoking and tobacco status: never smoked Quit status (tobacco): considering quitting Second hand smoke exposure: No Alcohol intake: never Counseling given: No Substance/Drug Use: never Last substance use date: 10/26/19 Household members: children Current occupational status: unemployed Physical Exam Const: COMMON NORMALS: patient oriented x3 HENMT: COMMON NORMALS: normocephalic and atraumatic HEAD & SCALP: normocephalic and atraumatic Eye: COMMON NORMALS: conjunctivae normal CONJUNCTIVA: Yes conjunctivae normal Neck/C-Spine: COMMON NORMALS: full ROM and supple Chest: COMMONS NORMALS: normal inspection of the chest and normal palpation of entire chest wall Resp: COMMON NORMALS: normal respiratory effort, No retractions, No use of accessory muscles and clear to auscultation bilaterally AUSCULTATION: clear to auscultation bilaterally Cardio: COMMON NORMALS: regular rate, regular rhythm and No murmurs present (Cardio) RATE: regular rate RHYTHM: regular rhythm GI: COMMON NORMALS: Normal to inspection, nondistended, normoactive bowel so unds present, Soft to palpation, non-tender and no masses PALPATION: Yes Soft to palpation Extremity: COMMON NORMALS: normal to inspection and full ROM Neuro: COMMON NORMALS: patient oriented x3, moves all extremities and no focal motor deficits Psych: COMMON NORMALS: mental status grossly normal, Normal thought process present and cooperative THOUGHT PROCESS: Normal thought process present Skin: COMMON NORMALS: no rashes or lesions noted and no wounds GENERAL SKIN EXAM: no rashes or lesions noted Course Vital Signs: Vital signs: Vital Signs Temperature 100.8 F H 05/08/23 18:04 Pulse Rate 97 05/08/23 18:04 Blood Pressure 164/108 05/08/23 18:04 Pulse Oximetry 92 05/08/23 19:00 Oxygen Delivery Me thod Room Air 05/08/23 19:00 Oxygen Flow Rate 4 05/08/23 18:04 MDM - Weakness Medical Decision Making Patient presents here with fever along with some flank pain she does have a UTI no signs of kidney stone or Stephan we will start her on antibiotics she has been well-appearing here blood pressures been normal she is stable for discharge she will follow-up with PCP and return if worsening Medical Records I reviewed the patient's medical records. Lab Data I reviewed the patient's lab results. 05/08/23 18:33 05/08/23 18:33 Radiology Impressions Abdomen/Pelvis CT 05/08/23 00:00 IMPRESSION: 1. 3.6 cm left adnexal cyst. 2. Post cholecystectomy changes with dilatation of the common bile duct. 3. No acute finding. Chest X-Ray 05/08/23 18:13 IMPRESSION: No acute findings. Laboratory Results WBC 8.2 10^3/uL (4.0-10.0) 05/08/23 18:33 RBC 4.31 10^6/uL (4.1-5.3) 05/08/23 18: Hgb 13.1 g/dL (11.5-15.3) 05/08/23 18: Hct 42.1 % (37.0-47.0) 05/08/23 18:33 MCV 97.7 fl (81-99) 05/08/23 18: MCH 30.4 pg (28.0-34.0) 05/08/23 18: MCHC 31.1 g/dL (30.0-36.0) 05/08/23 18: RDW 13.7 % (12.1-15.1) 05/08/23 18:33 Plt Count 150 10^3/cmm (130-400) 05/08/23 18:33 MPV 10.3 fL (7.4-10.4) 05/08/23 18:33 Neut % (Auto) 81.5 % 05/08/23 18: Lymph % (Auto) 7.7 % 05/08/23 18:33 [place] % (Auto) 9.4 % 05/08/23 18:33 Eos % (Auto) 0.5 % 05/08/23 18: Baso % (Auto) 0.5 % 05/08/23 18:33 Neut # (Auto) 6.71 10^3/uL (1.8-7.7) 05/08/23 18:33 Lymph # (Auto) 0.6 10^3/uL (0.8-4.8) L 05/08/23 18: [place] # (Auto) 0.8 10^3/uL (0.2-0.9) 05/08/23 18:33 Eos # (Auto) 0.0 10^3/uL (0.0-0.8) 05/08/23 18:33 Baso # (Auto) 0.0 10^3/uL (0.0-0.1) 05/08/23 18:33 Nucleated RBC % (auto) 0 % 05/08/23 18:33 Nucleated RBCs # 0.0 /100WBC 05/08/23 18:33 Sodium 134 mmol/L (136-145) L 05/08/23 18:33 Potassium 4.3 mmol/L (3.5-5.1) 05/08/23 18:33 Chloride 95 mmol/L (98-107) L 05/08/23 18:33 Carbon Dioxide 32 mmol/L (22-29) H 05/08/23 18:33 Anion Gap 11.3 (5-19) 05/08/23 18:33 BUN 8 mg/dL (6-20) 05/08/23 18:33 Creatinine 0.5 mg/dL (0.5-0.9) 05/08/23 18:33 GFR Calculation 126.3 mL/min (90-130) 05/08/23 18:33 Glucose 117 mg/dL (65-115) H 05/08/23 18:33 Calculated Osmolality 277 mOsm/kg (285-295) L 05/08/23 18:33 Calcium 8.7 mg/dL (8.5-10.5) 05/08/23 18:33 Total Bilirubin 0.9 mg/dL (0.15-1.2) 05/08/23 18:33 AST 10 U/L (0-32) 05/08/23 18:33 ALT 8 U/L (0-33) 05/08/23 18:33 Alkaline Phosphatase 100 U/L (35-105) 05/08/23 18:33 Total Protein 6.4 g/dL (6.6-8.7) L 05/08/23 18:33 Albumin 3.5 g/dL (3.5-5.2) 05/08/23 18:33 Globulin 2.9 g/dL (1.3-4.6) 05/08/23 18:33 Lipase 11 U/L (13-60) L 05/08/23 18:33 Urine Color Yellow (Yellow) 05/08/23 19:19 Urine Appearance Hazy (CLEAR) A 05/08/23 19:19 Urine pH 8 (5-7) H 05/08/23 19:19 Ur Specific [place] 1.005 (1.005-1.030) 05/08/23 19:19 Urine Protein Neg (Negative) 05/08/23 19:19 Urine Glucose (UA) Norm (Normal) 05/08/23 19:19 Urine Ketones Negative (Negative) 05/08/23 19:19 Urine Blood 3+ (Negative) H 05/08/23 19:19 Urine Nitrate Positive (Negative) H 05/08/23 19:19 Urine Bilirubin Neg (Negative) 05/08/23 19:19 Urine Urobilinogen 1 mg/dL (Negative) H 05/08/23 19:19 Ur Leukocyte Esterase 2+ (Negative) H 05/08/23 19:19 Urine RBC 0-4 /hpf (0-2) H 05/08/23 19:19 Urine WBC 5-10 /hpf (0-5) H 05/08/23 19:19 Ur Squamous Epith Cells 0-4 /hpf (0-5) H 05/08/23 19:19 Amorphous Sediment Not Reportable 05/08/23 19:19 Urine Bacteria 4+ /hpf (NONE) H 05/08/23 19:19 Discharge Plan Discharge Patient Disposition: Home Clinical Impression: Acute cystitis Condition: Stable Prescriptions: New cephalexin 500 mg capsule 500 mg PO TID 7 Days Qty: 21 0RF No Action Eliquis 5 mg tablet 5 mg PO BID (DME) cam boot See Rx Instructions .Route .MEDSUPPLY Qty: 1 0RF Rx Instructions: As directed (DME) CPAP Machine/Supplies See Rx Instructions .Route .MEDSUPPLY Qty: 1 0RF Rx Instructions: Order for CPAP Machine and Supplies (DME) CPAP w/Humidifier, Headgear See Rx Instructions .Route .MEDSUPPLY Qty: 1 0RF Rx Instructions: As directed quetiapine 150 mg tablet extended release 24 hr 150 mg PO BEDTIME Qty: 30 0RF lamotrigine 100 mg tablet 100 mg PO BID Qty: 60 0RF duloxetine [Cymbalta] 60 mg capsule,delayed release(DR/EC) 120 mg PO QAM Qty: 60 0RF ipratropium-albuterol 0.5 mg-3 mg(2.5 mg base)/3 mL solution for nebulization 3 ml inhalation Q6H PRN (Reason: wheezing) Qty: 90 3RF montelukast 10 mg tablet 10 mg PO DAILY albuterol sulfate 90 mcg/actuation HFA aerosol inhaler 2 inh INHALATION Q4H PRN (Reason: shortness of breath or wheezing) Qty: 18 0RF omeprazole 40 mg Capsule,Delayed Release(Dr/Ec) 40 mg PO DAILY gabapentin 300 mg Capsule 300 mg PO TID acetaminophen 500 mg Tablet 1,500 mg PO Q4H PRN (Reason: Pain) ibuprofen 200 mg Tablet 600 mg PO Q4H PRN (Reason: Pain) levothyroxine 88 mcg tablet 88 mcg PO DAILY trazodone 50 mg tablet 100 mg PO BEDTIME PRN (Reason: insomnia) valsartan 80 mg tablet 80 mg PO DAILY azelastine 137 mcg (0.1 %) aerosol,spray 1 spray INTRANASAL DAILY bupropion HCl 150 mg tablet extended release 24 hr 150 mg PO DAILY methylprednisolone [Medrol (Wilber)] 4 mg tablets,dose pack See Rx Instructions .ROUTE .COMPLEX Qty: 21 0RF Rx Instructions: orally per package directions amoxicillin-pot clavulanate 875-125 mg tablet 1 tab PO BID Qty: 14 0RF Trelegy Ellipta 100-62.5-25 mcg blister with device 1 inh inhalation DAILY 30 Days Qty: 28 3RF Discharge Orders: Discharge ED (Routine); Ordered 05/08/23 Ordered By: Mar Kirk Referrals: Bandar Cloud MD [Primary Care Provider] - 1-3 days Discharge Diet: Advance as tolerated Discharge Activity: Resume usual activity Patient Instructions: Urinary Tract Infection in Men (ED) Coding Level of Care Code ED Combat Systems Officer for Parmjit Colin
[2023-05-08 18:46] LABS: Basophils % 0.5 %; Eosinophils % 0.5 %; Hematocrit 42.1 % (37.0-47.0); Hemoglobin 13.1 g/dL (11.5-15.3); Lymphocytes # 0.6 10^3/uL (0.8-4.8); Lymphocytes % 7.7 %; Mean Corpuscular HGB Conc 31.1 g/dL (30.0-36.0); Mean Corpuscular Hemoglobin 30.4 pg (28.0-34.0); Mean Corpuscular Volume 97.7 fl (81-99); Mean Platelet Volume 10.3 fL (7.4-10.4); Monocytes # 0.8 10^3/uL (0.2-0.9); Monocytes % 9.4 %; Neutrophils # 6.71 10^3/uL (1.8-7.7); Neutrophils % 81.5 %; Nucleated Red Blood Cells % 0 %; Platelet Count 150 10^3/cmm (130-400); Red Blood Count 4.31 10^6/uL (4.1-5.3); Red Cell Distribution Width 13.7 % (12.1-15.1); White Blood Count 8.2 10^3/uL (4.0-10.0)
[2023-05-08 19:00] VITALS: O2SAT 92
[2023-05-08 19:00] LABS: Alanine Aminotransferase 8 U/L (0-33); Albumin Level 3.5 g/dL (3.5-5.2); Alkaline Phosphatase 100 U/L (35-105); Blood Urea Nitrogen 8 mg/dL (6-20); Calcium 8.7 mg/dL (8.5-10.5); Carbon Dioxide 32 mmol/L (22-29); Chloride 95 mmol/L (98-107); Creatinine Clr Calc Pharmacy 149.5912; Globulin 2.9 g/dL (1.3-4.6); Glomerular Filtration Rate 126.3 mL/min (90-130); Glucose 117 mg/dL (65-115); Lipase 11 U/L (13-60); Osmolality Calculated 277 mOsm/kg (285-295); Sodium 134 mmol/L (136-145); Total Bilirubin 0.9 mg/dL (0.15-1.2); Total Protein 6.4 g/dL (6.6-8.7)
[2023-05-08 19:09] LABS: Anion Gap 11.3 (5-19); Aspartate Amino Transferase 10 U/L (0-32); Potassium 4.3 mmol/L (3.5-5.1)
[2023-05-08] MEDS: acetaminophen 500 mg Tablet 1000 MG PO (19:16)
[2023-05-08] MEDS: ondansetron 2 mg/ML SDV 2 mL 4 MG IVP (19:17)
[2023-05-08] MEDS: morphine 4 mg/mL SDV 1 mL IVP (19:17)
[2023-05-08 19:35] LABS: Add Urine Microscopic? YES; Bilirubin Urine Neg (Negative); Blood Urine 3+ (Negative); Glucose Urine UA Norm (Normal); Ketones Urine Negative (Negative); Leukocyte Esterase Urine 2+ (Negative); Nitrate Urine Positive (Negative); Protein Urine Neg (Negative); Specific Gravity, Urine 1.005 (1.005-1.030); Urine Appearance Hazy (CLEAR); Urine Color Yellow (Yellow); Urobilinogen Urine 1 mg/dL (Negative); pH Urine 8 (5-7)
[2023-05-08] MEDS: iohexol 350 mg/mL 500 mL Btl (per mL) IV (19:35)
[2023-05-08 19:36] LABS: Add Urine Culture? Yes; Bacteria Urine 4+ /hpf; RBC Urine 0-4 /hpf (0-2); Squamous Epithelial Cell Urine 0-4 /hpf (0-5)
[2023-05-08] MEDS: cefTRIAXone 1,000 MG in sodium chloride 0.9% (plus) 50 ML 100 MG IV (20:52)
== END 2023-05-08 21:49 | disposition home or self-care (01) ==
PROVIDERS: Emergency Provider Emergency Medicine; PCP Family Medicine
DX: N30.00 Acute cystitis without hematuria (principal); J44.9 Chronic obstructive pulmonary disease, unspecified; E11.9 Type 2 diabetes mellitus without complications; Z86.19 Personal history of other infectious and parasitic diseases; E78.5 Hyperlipidemia, unspecified; I10 Essential (primary) hypertension
CPT/HCPCS: 71045; 74177; 80053; 81001; 83690; 85025; 87077; 87086; 87186; 96374; 96375; 99285; J0696; J2270; J2405

== ENCOUNTER → 2023-05-22 15:13 | Outpatient (BNVA) | payer MEDICARE, MEDICAID, SELFPAY ==
[2020-07-18 17:32] VITALS: BP 115/65; BMI 41.0
== END ==
PROVIDERS: PCP Family Medicine; Visit Provider Specialist
DX: G47.33 Obstructive sleep apnea (adult) (pediatric) (principal); F17.209 Nicotine dependence, unspecified, with unspecified nicotine-induced disorders
CPT/HCPCS: 99214

== ENCOUNTER 2023-06-30 20:20 | Observation (INO) | payer MEDICARE, MEDICAID, SELFPAY ==
[2020-07-18 17:32] VITALS: BP 115/65; BMI 41.0
[2023-06-30] VITALS (8 sets, daily range): BP systolic 145–165; BP diastolic 85–100; PULSE 7–92; RESP 18–20; TEMP 36.9; O2SAT 87–94; BMI 37.9
--- NOTE | 2023-06-30 20:27 | XRR_ITS ---
PROCEDURE INFORMATION: Exam: XR Chest Exam date and time: 06/30/2023 8:55 PM Age: 57 years old Clinical indication: Shortness of breath; Patient HX: C/O SOB. History of copd. TECHNIQUE: Imaging protocol: Radiologic exam of the chest. Views: 1 view. COMPARISON: CR XR chest 1V portable [id number] 05/08/2023 6:17 PM FINDINGS: Lungs: Lungs are mildly hyperinflated. No focal consolidation. No pulmonary edema. Pleural spaces: No pleural effusion. No pneumothorax. Heart/Mediastinum: Stable moderate enlargement of the cardiac silhouette. Mediastinal contours are unremarkable. Bones/joints: Bones are diffusely osteopenic. Degenerative changes in the spine and shoulders. Mild scoliosis in the visualized spine. XR/XR chest 1V portable [id number] IMPRESSION: 1. No acute cardiopulmonary process. 2. Incidental/nonacute findings are listed in the report.
--- NOTE | 2023-06-30 20:30 | ECG_ITS ---
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 Measurements Intervals [place] Rate: 81 P: 74 GA: 165 QRS: 87 QRSD: 111 T: 63 QT: 376 QTc: 437 Interpretive Statements SINUS RHYTHM MODERATE INTRAVENTRICULAR CONDUCTION DELAY [110+ ms QRS DURATION] Compared to ECG 04/22/2023 16:07:18 Intraventricular conduction delay now present Sinus bradycardia no longer present Electronically Signed On 07-01-2023 16:02:25 CDT by Tre Lott M.D. [id number]
[2023-06-30] MEDS: ipratropium-albuterol 3 mL Neb INHALATION ×2 (20:35→23:22)
[2023-06-30 20:52] LABS: ABG PH Result 7.35 (7.35-7.45); Arterial Blood Gas Hematocrit 40.7 % (37-47); Base Excess ABG 11.7 mmol/L (-2.0-2.0); Blood Gas Sample Type Arterial; HCO3 ABG 40.5 mmol/L (22-26); Methemoglobin 0.4 % (0.4-1.5); PO2 ABG 57.7 mmHg (80.0-100.0); Total Hemoglobin 13.3 g/dL (12-16)
[2023-06-30 20:53] LABS: Blood Gas Sample Site Brachial, left; Oxygen Device OXY MASK
--- NOTE | 2023-06-30 21:02 | ED_ITS ---
HPI - SOB/Dyspnea General: Chief Complaint: Shortness of Breath/Dyspnea Stated Complaint: SOB Time Seen by Provider: 06/30/23 20:25 History of Present Illness: HPI Narrative: 57-year-old female history of COPD. She presents with shortness of breath, cough with yellow sputum production, low-grade temperatures she says. She is usually on home oxygen at 4, and was hypoxic on this. She denies significant chest discomfort. Associated symptoms: Reports fever(s) and nausea; Deny abdominal pain, chest pain, palpitations or vomiting Review of Systems Const: Reports: fever(s) and chills ENMT: Denies: throat pain Card: Denies: chest pain or palpitations Resp: Reports: dyspnea and productive cough GI: Reports: nausea; Denies: abdominal pain or vomiting Musc: Reports: back pain Skin/Breast: Reports: rash and erythema PFSH ED PFSH: Medical History Acute exacerbation of chronic obstructive airways disease Acute hypercapnic respiratory failure Acute on chronic respiratory failure with hypoxemia Anxiety and depression Bilateral pulmonary embolism -on AC with Eliquis Bipolar 2 disorder Chronic pain Chronic post-traumatic stress disorder (PTSD) COPD (chronic obstructive pulmonary disease) Chronic COPD. Chronic smoking. She is aware of the risks of cigarette smoking with COPD. COPD exacerbation Diabetes Fracture of distal end of right fibula GERD (gastroesophageal reflux disease) Hepatitis C virus infection cured after antiviral drug therapy Hyperlipidemia Hypertension Hypothyroidism Insomnia Left lower lobe pneumonia Narcolepsy with cataplexy Non-insulin dependent type 2 diabetes mellitus Obstructive sleep apnea Obstructive sleep apnea hypopnea, severe Ovarian cyst Pneumonia Pneumonia Psychiatric care Smoking Smoking addiction Spinal stenosis Tobacco use disorder, continuous Surgical History H/O section Status post left foot surgery Family History Mother Cancer Breast cancer Social History Smoking and tobacco status: never smoked Quit status (tobacco): considering quitting Second hand smoke exposure: No Alcohol intake: never Counseling given: No Substance/Drug Use: never Last substance use date: 10/26/19 Household members: children Current occupational status: unemployed Physical Exam Const: GENERAL APPEARANCE: cooperative and ill appearing; not frail appearing HENMT: COMMON NORMALS: normocephalic and Normal external nose present HEAD & SCALP: normocephalic FACE & SINUS: normal facial exam and face symmetric NOSE: Normal external nose present Eye: COMMON NORMALS: Equal, round and reactive pupils present and EOMs intact bilaterally PUPIL: Yes Equal, round and reactive pupils present Neck/C-Spine: GENERAL: Yes trachea midline Chest: CHEST: Yes Symmetrical chest wall rise Resp: EFFORT & INSPECTION: Yes tachypneic and Yes labored AUSCULTATION: rales, wheezes and diminished lung sounds Cardio: COMMON NORMALS: regular rate and regular rhythm RATE: regular rate RHYTHM: regular rhythm GI: COMMON NORMALS: Normal to inspection, nondistended, normoactive bowel jeferson nds present Extremity: COMMON NORMALS: no pedal edema Neuro: NAZIA COMA SCALE: document GCS findings Nazia coma scale eye opening: Spontaneous Nazia coma scale verbal response: Orientated Nazia coma scale motor response: Obey commands [place] coma scale total score: 15 SENSORY EXAM: Yes extremities (intact) Psych: COMMON NORMALS: speech normal SPEECH: Yes normal speech Skin: COMMON NORMALS: no rashes or lesions noted GENERAL SKIN EXAM: no rashes or lesions noted Course Vital Signs: Vital signs: Vital Signs Temperature 98.4 F 06/30/23 20:20 Pulse Rate 81 06/30/23 20:39 Respiratory Rate 18 06/30/23 23:15 Blood Pressure 145/85 06/30/23 20:33 Pulse Oximetry 93 06/30/23 20:39 Oxygen Delivery Me thod Nasal Cannula 06/30/23 20:39 Oxygen Flow Rate 5 06/30/23 20:39 MDM - SOB/Dyspnea Medical Decision Making Patient received DuoNeb treatment and Solu-Medrol with some improvement, although not much. She is on oxy mask oxygenation at 5 L satting 92%. ABG shows a pH of 7.35 with a PCO2 of 74, most of which appears chronic. Laboratory is not otherwise terribly remarkable. Lactic acid is normal. COVID swab is normal. Chest x-ray does not reveal an acute process. She will be admitted for hypoxic hypercapnic respiratory failure with COPD exacerbation to observation. Hospitalist will see the patient in the ER. Lab Data 06/30/23 20:39 06/30/23 20:39 Labs/Radiology: Radiology Impressions Chest X-Ray 06/30/23 20:27 IMPRESSION: 1. No acute cardiopulmonary process. 2. Incidental/nonacute findings are listed in the report. Laboratory Results WBC 8.61 10^3/uL (3.29-11.43) 06/30/23 20:39 RBC 4.34 10^6/uL (3.85-5.65) 06/30/23 20:39 Hgb 13.30 g/dL (11.27-16.99) 06/30/23 20:39 Hct 42.1 % (36-47) 06/30/23 20:39 MCV 97.0 fl (85-98) 06/30/23 20: MCH 30.6 pg (27-33) 06/30/23 20: MCHC 31.6 g/dL (30-55) 06/30/23 20:39 RDW 12.6 % (12.1-15.1) 06/30/23 20:39 Plt Count 151 10^3/cmm (157-399) L 06/30/23 20:39 MPV 10.6 fL (7.4-10.4) H 06/30/23 20:39 Neut % (Auto) 82.3 % 06/30/23 20:39 Lymph % (Auto) 9.8 % 06/30/23 20:39 [place] % (Auto) 6.9 % 06/30/23 20:39 Eos % (Auto) 0.5 % 06/30/23 20:39 Baso % (Auto) 0.3 % 06/30/23 20:39 Neut # (Auto) 7.09 10^3/uL (1.8-7.7) 06/30/23 20:39 Lymph # (Auto) 0.8 10^3/uL (0.8-4.8) 06/30/23 20:39 [place] # (Auto) 0.6 10^3/uL (0.2-0.9) 06/30/23 20: Eos # (Auto) 0.0 10^3/uL (0.0-0.8) 06/30/23 20:39 Baso # (Auto) 0.0 10^3/uL (0.0-0.1) 06/30/23 20: Nucleated RBC % (auto) 0 % 06/30/23 20:39 Nucleated RBCs # 0.0 /100WBC 06/30/23 20:39 Specimen Type Arterial 06/30/23 20:45 Sample Site Brachial, left 06/30/23 20:45 ABG pH 7.35 (7.35-7.45) 06/30/23 20:45 ABG pCO2 73.6 mmHg (35-45) H* 06/30/23 20:45 ABG pO2 57.7 mmHg (80.0-100.0) L 06/30/23 20:45 ABG HCO3 40.5 mmol/L (22-26) H 06/30/23 20:45 ABG Base Excess 11.7 mmol/L (-2.0-2.0) H 06/30/23 20:45 Glenn Test N/a 06/30/23 20:45 Hematocrit 40.7 % (37-47) 06/30/23 20:45 Hgb O2 Saturation 87.0 % (95-100) L 06/30/23 20:45 Carboxyhemoglobin 4.0 %THgb (0.4-20.1) 06/30/23 20:45 Methemoglobin 0.4 % (0.4-1.5) 06/30/23 20:45 Total Hemoglobin 13.3 g/dL (12-16) 06/30/23 20:45 O2 Delivery Device Oxy mask 06/30/23 20:45 O2 Liters/Min 5.0 % 06/30/23 20:45 FiO2 40.0 % 06/30/23 20:45 Mobile Product Manager ID [email or web address] 06/30/23 20:45 Sodium 141 mmol/L (136-145) 06/30/23 20:39 Potassium 3.8 mmol/L (3.5-5.1) 06/30/23 20:39 Chloride 97 mmol/L (98-107) L 06/30/23 20:39 Carbon Dioxide 37 mmol/L (22-29) H 06/30/23 20:39 Anion Gap 10.8 (5-19) 06/30/23 20:39 BUN 5 mg/dL (6-20) L 06/30/23 20:39 Creatinine 0.4 mg/dL (0.5-0.9) L 06/30/23 20:39 GFR Calculation 163.4 mL/min (90-130) H 06/30/23 20:39 Glucose 121 mg/dL (65-115) H 06/30/23 20:39 Calculated Osmolality 291 mOsm/kg (285-295) 06/30/23 20:39 Lactic Acid 0.8 mmol/L (0.5-2.2) 06/30/23 20:39 Calcium 9.1 mg/dL (8.5-10.5) 06/30/23 20:39 Total Bilirubin 0.7 mg/dL (0.15-1.2) 06/30/23 20:39 AST 10 U/L (0-32) 06/30/23 20:39 ALT 13 U/L (0-33) 06/30/23 20:39 Alkaline Phosphatase 89 U/L (35-105) 06/30/23 20:39 Troponin T Baseline 7 ng/L (0-10) 06/30/23 20:39 Troponin T 120 Minute 7.03 ng/L (0-10) 06/30/23 22:38 NT-Pro-B Natriuret Pep 36 pg/mL (0-125) 06/30/23 20:39 Total Protein 6.7 g/dL (6.6-8.7) 06/30/23 20:39 Albumin 4.1 g/dL (3.5-5.2) 06/30/23 20:39 Globulin 2.6 g/dL (1.3-4.6) 06/30/23 20:39 SARS-CoV-2 Ag (Rapid) negative (Negative) 06/30/23 21:50 Discharge Plan Discharge Patient Disposition: Placed in Observation Clinical Impression: Acute on chronic respiratory failure with hypoxemia, Acute exacerbation of chronic obstructive airways disease Condition: Stable Prescriptions: No Action Eliquis 5 mg tablet 5 mg PO BID (DME) cam boot See Rx Instructions .Route .MEDSUPPLY Qty: 1 0RF Rx Instructions: As directed (DME) CPAP Machine/Supplies See Rx Instructions .Route .MEDSUPPLY Qty: 1 0RF Rx Instructions: Order for CPAP Machine and Supplies (DME) CPAP w/Humidifier, Headgear See Rx Instructions .Route .MEDSUPPLY Qty: 1 0RF Rx Instructions: As directed quetiapine 150 mg tablet extended release 24 hr 150 mg PO BEDTIME Qty: 30 0RF lamotrigine 100 mg tablet 100 mg PO BID Qty: 60 0RF duloxetine [Cymbalta] 60 mg capsule,delayed release(DR/EC) 120 mg PO QAM Qty: 60 0RF ipratropium-albuterol 0.5 mg-3 mg(2.5 mg base)/3 mL solution for nebulization 3 ml inhalation Q6H PRN (Reason: wheezing) Qty: 90 3RF montelukast 10 mg tablet 10 mg PO DAILY albuterol sulfate 90 mcg/actuation HFA aerosol inhaler 2 inh INHALATION Q4H PRN (Reason: shortness of breath or wheezing) Qty: 18 0RF omeprazole 40 mg Capsule,Delayed Release(Dr/Ec) 40 mg PO DAILY gabapentin 300 mg Capsule 300 mg PO TID acetaminophen 500 mg Tablet 1,500 mg PO Q4H PRN (Reason: Pain) ibuprofen 200 mg Tablet 600 mg PO Q4H PRN (Reason: Pain) levothyroxine 88 mcg tablet 88 mcg PO DAILY trazodone 50 mg tablet 100 mg PO BEDTIME PRN (Reason: insomnia) valsartan 80 mg tablet 80 mg PO DAILY azelastine 137 mcg (0.1 %) aerosol,spray 1 spray INTRANASAL DAILY bupropion HCl 150 mg tablet extended release 24 hr 150 mg PO DAILY methylprednisolone [Medrol (Wilber)] 4 mg tablets,dose pack See Rx Instructions .ROUTE .COMPLEX Qty: 21 0RF Rx Instructions: orally per package directions amoxicillin-pot clavulanate 875-125 mg tablet 1 tab PO BID Qty: 14 0RF Trelegy Ellipta 100-62.5-25 mcg blister with device 1 inh inhalation DAILY 30 Days Qty: 28 3RF Referrals: Bandar Cloud MD [Primary Care Provider] - Coding Level of Care Code ED Applied Exercise Physiologist for Parmjit Colin
[2023-06-30 21:09] LABS: Basophils % 0.3 %; Eosinophils % 0.5 %; Hematocrit 42.1 % (36-47); Lymphocytes # 0.8 10^3/uL (0.8-4.8); Lymphocytes % 9.8 %; Mean Corpuscular HGB Conc 31.6 g/dL (30-55); Mean Corpuscular Hemoglobin 30.6 pg (27-33); Mean Platelet Volume 10.6 fL (7.4-10.4); Monocytes # 0.6 10^3/uL (0.2-0.9); Monocytes % 6.9 %; Neutrophils # 7.09 10^3/uL (1.8-7.7); Neutrophils % 82.3 %; Nucleated Red Blood Cells % 0 %; Platelet Count 151 10^3/cmm (157-399); Red Blood Count 4.34 10^6/uL (3.85-5.65); Red Cell Distribution Width 12.6 % (12.1-15.1); White Blood Count 8.61 10^3/uL (3.29-11.43)
[2023-06-30] MEDS: methylPREDNISolone sod succ 125 MG in water for injection-sterile 2 ML 24 MG IVP (21:29)
[2023-06-30 21:32] LABS: Lactic Sepsis W/Reflex 0.8 mmol/L (0.5-2.2)
[2023-06-30 21:33] LABS: Troponin(5th) Baseline 7 ng/L (0-10)
[2023-06-30 21:37] LABS: Alanine Aminotransferase 13 U/L (0-33); Albumin Level 4.1 g/dL (3.5-5.2); Alkaline Phosphatase 89 U/L (35-105); Anion Gap 10.8 (5-19); Aspartate Amino Transferase 10 U/L (0-32); Blood Urea Nitrogen 5 mg/dL (6-20); Calcium 9.1 mg/dL (8.5-10.5); Carbon Dioxide 37 mmol/L (22-29); Chloride 97 mmol/L (98-107); Globulin 2.6 g/dL (1.3-4.6); Glomerular Filtration Rate 163.4 mL/min (90-130); Glucose 121 mg/dL (65-115); NT Pro B Type Natriuretic Pept 36 pg/mL (0-125); Osmolality Calculated 291 mOsm/kg (285-295); Potassium 3.8 mmol/L (3.5-5.1); Sodium 141 mmol/L (136-145); Total Bilirubin 0.7 mg/dL (0.15-1.2); Total Protein 6.7 g/dL (6.6-8.7)
--- NOTE | 2023-06-30 22:30 | ECG_ITS ---
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 Measurements Intervals [place] Rate: 81 P: 74 [place]: 165 QRS: 87 QRSD: 97 T: 87 QT: 373 QTc: 435 Interpretive Statements SINUS RHYTHM LOW QRS VOLTAGE IN PRECORDIAL LEADS [QRS DEFLECTION < 1.0 mV IN CHEST LEADS] Compared to ECG 06/30/2023 20:24:10 Low QRS voltage now present Intraventricular conduction delay no longer present Electronically Signed On 07-01-2023 16:04:04 CDT by Tre Lott M.D. [id number]
[2023-06-30 22:33] LABS: ABG PCO2 73.6 mmHg (35-45)
[2023-06-30 23:08] LABS: SARS Covid-2 Antigen negative (Negative)
[2023-06-30 23:13] LABS: Troponin 5 2HR 7.03 ng/L (0-10)
[2023-06-30] MEDS: oxyCODONE-APAP 5-325 mg Tablet 1 TAB PO (23:15)
[2023-06-30 23:30] LABS: Troponin 5 2HR Delta 0.03 ABS# (0-10)
[2023-07-01] VITALS (14 sets, daily range): BP systolic 131–160; BP diastolic 79–91; PULSE 71–88; RESP 17–20; TEMP 36.5–37; O2SAT 89–96
--- NOTE | 2023-07-01 00:19 | PM.HP ---
Providers/Chief Complaint Admitting Physician: Teresa Hargrove MD Primary Care Provider: Bandar Cloud MD Chief Complaint: SOB History of Present Illness Tomeka Marshall is a 57 year old female with history of COPD chronic respiratory failure with hypoxemia on home oxygen at 2 L nasal cannula hypothyroidism depression hypertension pulmonary embolism on Eliquis bipolar disorder PTSD, obstructive sleep apnea was brought in by EMS with complaint of shortness of breath and cough productive of yellow sputum since 2 to 3 days. She denies any fever chest pain nausea vomiting diarrhea or urinary complaints. She reports history of sick contact at home. In ER she was found to be hypoxic and was saturating 91% on 5 L nasal cannula. She received 1 dose of IV methylprednisolone and DuoNeb. Review of Systems Narrative: As per HPI Medications/Allergies Home Medications Medication Instructions Recorded Confirmed Last Taken Type apixaban 5 mg tablet (Eliquis) 5 mg PO BID 02/12/20 05/22/23 04/22/23 History albuterol sulfate 90 mcg/actuation 2 inh inhalation Q4H PRN shortness 05/28/20 05/22/23 09/04/20 Rx aerosol inhaler of breath or wheezing #18 grams montelukast 10 mg tablet 10 mg PO DAILY 05/28/20 05/22/23 04/22/23 History gabapentin 300 mg capsule 300 mg PO TID 08/25/21 05/22/23 04/22/23 History omeprazole 40 mg capsule,delayed 40 mg PO DAILY 08/25/21 05/22/23 04/22/23 History release acetaminophen 500 mg tablet 1,500 mg PO Q4H PRN Pain 10/03/21 05/22/23 Unknown History ibuprofen 200 mg tablet 600 mg PO Q4H PRN Pain 10/03/21 05/22/23 10/03/21 History CPAP Machine/Supplies #1 ea 07/11/22 05/22/23 Unknown Rx CPAP w/Humidifier, Headgear #1 ea 07/11/22 05/22/23 Unknown Rx cam boot #1 ea 08/14/22 05/22/23 Unknown Rx duloxetine 60 mg capsule,delayed 120 mg PO QAM #60 caps 01/24/23 05/22/23 04/22/23 Rx release (Cymbalta) lamotrigine 100 mg tablet 100 mg PO BID #60 tabs 01/24/23 05/22/23 04/22/23 Rx quetiapine 150 mg tablet,extended 150 mg PO BEDTIME #30 tabs 01/24/23 05/22/23 04/21/23 Rx release 24 hr ipratropium 0.5 mg-albuterol 3 mg 3 ml inhalation Q6H PRN wheezing 02/19/23 05/22/23 04/22/23 Rx (2.5 mg base)/3 mL nebulization #90 mL soln azelastine 137 mcg (0.1 %) nasal 1 spray intranasal DAILY 04/19/23 05/22/23 04/22/23 History spray aerosol bupropion HCl 150 mg 24 hr tablet, 150 mg PO DAILY 04/19/23 05/22/23 04/22/23 History extended release levothyroxine 88 mcg tablet 88 mcg PO DAILY 04/19/23 05/22/23 04/22/23 History trazodone 50 mg tablet 100 mg PO BEDTIME PRN insomnia 04/19/23 05/22/23 04/21/23 History valsartan 80 mg tablet 80 mg PO DAILY 04/19/23 05/22/23 04/22/23 History amoxicillin 875 mg-potassium 1 tab PO BID #14 tabs 04/21/23 05/22/23 Unknown Rx clavulanate 125 mg tablet fluticasone fur. 100 mcg-umeclid 1 inh inhalation DAILY 1 month #28 04/21/23 05/22/23 Unknown Rx 62.5 mcg-vilant 25 mcg ea inhalat.powder (Trelegy Ellipta) methylprednisolone 4 mg tablets in See Rx Instructions PO .COMPLEX 04/21/23 05/22/23 Unknown Rx a dose pack (Medrol (Wilber)) #21 ea Allergies Allergy/AdvReac Type Severity Reaction Status Date / Time levofloxacin [From Levaquin] Allergy Intermediate ADR-Abdominal Verified 05/22/23 15:26 Pain Sulfa (Sulfonamide Allergy Intermediate ADR-Blurry Verified 05/22/23 15:26 Antibiotics) Vision nitrofurantoin Allergy Unknown Verified 05/22/23 15:26 PFSH Acute PFSH: Medical History Acute exacerbation of chronic obstructive airways disease Acute hypercapnic respiratory failure Acute on chronic respiratory failure with hypoxemia Anxiety and depression Bilateral pulmonary embolism -on AC with Eliquis Bipolar 2 disorder Chronic pain Chronic post-traumatic stress disorder (PTSD) COPD (chronic obstructive pulmonary disease) Chronic COPD. Chronic smoking. She is aware of the risks of cigarette smoking with COPD. COPD exacerbation Diabetes Fracture of distal end of right fibula GERD (gastroesophageal reflux disease) Hepatitis C virus infection cured after antiviral drug therapy Hyperlipidemia Hypertension Hypothyroidism Insomnia Left lower lobe pneumonia Narcolepsy with cataplexy Non-insulin dependent type 2 diabetes mellitus Obstructive sleep apnea Obstructive sleep apnea hypopnea, severe Ovarian cyst Pneumonia Pneumonia Psychiatric care Smoking Smoking addiction Spinal stenosis Tobacco use disorder, continuous Surgical History H/O section Status post left foot surgery Family History Mother Cancer Breast cancer Social History Smoking and tobacco status: never smoked Quit status (tobacco): considering quitting Second hand smoke exposure: No Alcohol intake: never Counseling given: No Substance/Drug Use: never Last substance use date: 10/26/19 Household members: children Current occupational status: unemployed Vitals/I&O/Wt Last Vital Signs Temp 98.4 F 06/30/23 20:20 Pulse 82 06/30/23 23:56 Resp 20 H 06/30/23 23:26 BP 165/100 06/30/23 23:56 Pulse Ox 91 06/30/23 23:56 O2 Del Method Oxymask 06/30/23 23:26 O2 Flow Rate 5 06/30/23 23:26 06/30/23 06/30/23 07/01/23 14:59 22:59 06:59 Intake Total 2 / 2 Balance 2 / 2 Weight last 48 hrs Weight 106.594 kg Physical Exam Narrative: She is alert awake oriented x3, in moderate respiratory distress due to hypoxia, unable to speak in full sentences, she is morbidly obese Chest bilateral coarse rhonchi and wheezing present Cardiovascular normal heart sounds regular rhythm Abdomen NAD Extremity 1+ bilateral lower extremity edema present Data 06/30/23 20:39 06/30/23 20:39 Micro: Microbiology 06/30/23 20:43 Blood Culture - Preliminary Blood SPECIMEN COLLECTED 06/30/23 20:39 Blood Culture - Preliminary Blood SPECIMEN COLLECTED CXR: Radiologist's impression: Lungs: Lungs are mildly hyperinflated. No focal consolidation. No pulmonary edema. Pleural spaces: No pleural effusion. No pneumothorax. Heart/Mediastinum: Stable moderate enlargement of the cardiac silhouette. Mediastinal contours are unremarkable. Bones/joints: Bones are diffusely osteopenic. Degenerative changes in the spine and shoulders. Mild scoliosis in the visualized spine. EKG 1: My Interpretation: Normal sinus rhythm normal axis, no acute ST-T changes, A&P Assessment and plan (1) Acute exacerbation of chronic obstructive airways disease: (2) Acute on chronic respiratory failure with hypoxemia: Plan 57-year-old female with history of COPD, chronic hypercarbic hypoxemic respiratory failure on supplemental oxygen at home presented with shortness of breath and cough productive of yellow sputum history of sick contact likely secondary to COPD exacerbation causing acute on chronic hypercarbic hypoxemic respiratory failure. Will give IV ceftriaxone 1 g daily IV methylprednisolone 80 mg every 8 hours DuoNeb every 6 hours Continue supplemental oxygen to keep saturation 90 to 92% Resume home medications IV Pepcid 20 mg every 12 for stress ulcer prophylaxis She is on Eliquis for PE no further need for DVT prophylaxis She is DNR/DNI. Attestations Medical Necessity Statement*: She needs continued hospitalization for 2 midnights for management of COPD exacerbation and acute on chronic respiratory failure Time Spent in Patient Care: 35 minutes Coding Level of Care Code Critical Care >/= 30 minutes Diagnoses Acute exacerbation of chronic obstructive airways disease J44.1 Acute on chronic respiratory failure with hypoxemia J96.21 Time Spent (min) 35
[2023-07-01] MEDS: sodium chloride 0.9% 1,000 ML 50 ML IV (00:36)
[2023-07-01] MEDS: trazodone 50 mg Tablet 100 MG PO (01:41)
[2023-07-01] MEDS: ibuprofen 200 mg Tablet 600 MG PO (01:41)
--- NOTE | 2023-07-01 02:54 | ECG_ITS ---
[facility] Test Date: 2023-07-01 Pat Name: Tomeka Marshall Department: Room: 251 Gender: Female Artist Scientific: : 1965 Requested By: Fredis Parikh Order Number: [id number] Umer MD: Tre Lott M.D. Measurements Intervals [place] Rate: 74 P: 2 LA: 148 QRS: -20 QRSD: 101 T: -8 QT: 393 QTc: 439 Interpretive Statements SINUS RHYTHM LOW QRS VOLTAGE IN PRECORDIAL LEADS [QRS DEFLECTION < 1.0 mV IN CHEST LEADS] Compared to ECG 06/30/2023 22:37:00 No significant changes Electronically Signed On 07-01-2023 16:04:17 CDT by Tre Lott M.D. [id number]
[2023-07-01 03:06] LABS: Troponin 5 6HR 6.16 ng/L (0-10)
[2023-07-01 03:09] LABS: Troponin 5 6HR Delta 0.16 ng/L (0-12)
[2023-07-01 03:13] LABS: NT Pro B Type Natriuretic Pept 78 pg/mL (0-125)
[2023-07-01] MEDS: duloxetine 60 mg Capsule 120 MG PO (05:50)
[2023-07-01] MEDS: methylPREDNISolone sod succ 60 MG in water for injection-sterile 0.96 ML 11.52 MG IVP (08:50)
[2023-07-01] MEDS: budesonide 0.5 mg/2 mL Neb INHALATION ×2 (08:52→21:09)
--- NOTE | 2023-07-01 09:01 | PC.PHAR ---
pt states she has home health [facility] [phone]-medications entered are from what was read to me over the phone from [facility]-phone lines were down and unable to get fax so meds were read over the phone
[2023-07-01] MEDS: buPROPion XL (24 HR) 150 mg Tablet PO (09:31)
[2023-07-01] MEDS: montelukast sodium 10 mg Tablet PO (09:31)
[2023-07-01] MEDS: lamoTRIgine 100 mg Tablet PO ×2 (09:31→17:34)
[2023-07-01] MEDS: apixaban 5 mg Tablet PO ×2 (09:31→17:34)
[2023-07-01] MEDS: losartan 50 mg Tablet 25 MG PO (09:31)
[2023-07-01] MEDS: levothyroxine 88 mcg Tablet PO (09:31)
[2023-07-01] MEDS: gabapentin 300 mg Capsule PO ×3 (09:31→20:13)
[2023-07-01] MEDS: cefTRIAXone 1,000 MG in sodium chloride 0.9% (plus) 50 ML 100 MG IV (09:32)
[2023-07-01] MEDS: pneumococcal (23 valent) SDV 0.5 mL IM (10:12)
--- NOTE | 2023-07-01 12:01 | PM.PN ---
Subjective Subjective: History and physical reviewed in detail. Patient reports she is breathing perhaps slightly better, but still very short of breath. Her normal oxygen requirement is 2 L, and she is currently on 5 per facemask. Medications: Reviewed: Yes Vitals/I&O/Wt Last Vital Signs Temp 98.3 F 07/01/23 07:13 Pulse 72 07/01/23 08:53 Resp 20 H 07/01/23 08:53 BP 137/79 07/01/23 07:13 Pulse Ox 93 07/01/23 08:53 O2 Del Method Nasal Cannula 07/01/23 08:53 O2 Flow Rate 5 07/01/23 08:53 06/30/23 07/01/23 07/01/23 22:59 06:59 14:59 Intake Total 452.627 / 452.627 Balance 452.627 / 452.627 Weight last 48 hrs Weight 106.594 kg Physical Exam Narrative: General exam tachypnea noted, able to carry on 3-4 word sentences Neck is supple Cardiovascular regular rate and rhythm without murmur Lungs bilateral expiratory wheezes. Diminished air movement bilaterally Abdomen is soft, positive bowel sounds. No obvious organomegaly Extremities no cyanosis clubbing edema Data 06/30/23 20:39 06/30/23 20:39 Micro: Microbiology 06/30/23 20:43 Blood Culture - Preliminary Blood SPECIMEN COLLECTED 06/30/23 20:39 Blood Culture - Preliminary Blood SPECIMEN COLLECTED A&P Assessment and plan (1) Acute exacerbation of chronic obstructive airways disease: Patient presents with significant COPD exacerbation. She is still wheezing and requiring a fair amount of oxygen over her baseline. DuoNeb every 4 hours, budesonide twice daily Change Solu-Medrol to 60 mg IV every 12 hours CBC, CMP, magnesium level in the morning Continue IV antibiotics currently. When improvement is noted consider changing to oral (2) Acute on chronic respiratory failure with hypoxemia: Still requiring 5 L of oxygen Wean oxygen as tolerated See above (3) Pulmonary embolism: Continue Eliquis 5 mg twice daily. This will suffice for DVT prophylaxis as well Plan Multiple other medical problems as outlined in past medical history Allow natural Eliquis will suffice for DVT prophylaxis Attestations Medical Necessity Statement*: He has continued hospitalization secondary to persistence of hypoxic respiratory failure with need for IV steroids, frequent nebs, oxygen above her norm Diagnoses Acute exacerbation of chronic obstructive airways disease J44.1 Acute on chronic respiratory failure with hypoxemia J96.21 Pulmonary embolism I26.99 Time Spent (min) 23
[2023-07-01] MEDS: ipratropium-albuterol 3 mL Neb INHALATION ×3 (12:13→21:09)
[2023-07-01] MEDS: acetaminophen 325 mg Tablet 650 MG PO (16:20)
[2023-07-01] MEDS: quetiapine XR (24HR) 50 mg Tablet 150 MG PO (20:13)
[2023-07-01] MEDS: methylPREDNISolone sod succ 60 MG in water for injection-sterile 0.96 ML 11.5 MG IVP (21:00)
[2023-07-02] VITALS (9 sets, daily range): BP systolic 140–159; BP diastolic 72–94; PULSE 64–74; RESP 17–20; TEMP 36.8–37.1; O2SAT 90–98
[2023-07-02] MEDS: ipratropium-albuterol 3 mL Neb INHALATION ×3 (00:18→08:08)
[2023-07-02 05:06] LABS: Hematocrit 43.4 % (36-47); Lymphocytes # 0.6 10^3/uL (0.8-4.8); Lymphocytes % 7.5 %; Mean Corpuscular HGB Conc 31.6 g/dL (30-55); Mean Corpuscular Hemoglobin 30.6 pg (27-33); Mean Corpuscular Volume 96.9 fl (85-98); Mean Platelet Volume 11.1 fL (7.4-10.4); Monocytes # 0.2 10^3/uL (0.2-0.9); Monocytes % 2.7 %; Neutrophils # 6.98 10^3/uL (1.8-7.7); Neutrophils % 89.3 %; Nucleated Red Blood Cells % 0 %; Platelet Count 156 10^3/cmm (157-399); Red Blood Count 4.48 10^6/uL (3.85-5.65); Red Cell Distribution Width 12.4 % (12.1-15.1); White Blood Count 7.82 10^3/uL (3.29-11.43)
[2023-07-02 05:31] LABS: Alanine Aminotransferase 12 U/L (0-33); Albumin Level 4.3 g/dL (3.5-5.2); Alkaline Phosphatase 91 U/L (35-105); Blood Urea Nitrogen 9 mg/dL (6-20); Calcium 9.4 mg/dL (8.5-10.5); Carbon Dioxide 37 mmol/L (22-29); Chloride 96 mmol/L (98-107); Creatinine Clr Calc Pharmacy 149.5912; Globulin 2.5 g/dL (1.3-4.6); Glomerular Filtration Rate 126.3 mL/min (90-130); Glucose 190 mg/dL (65-115); Magnesium 2.1 mg/dL (1.7-2.3); Osmolality Calculated 290 mOsm/kg (285-295); Sodium 138 mmol/L (136-145); Total Bilirubin 0.4 mg/dL (0.15-1.2); Total Protein 6.8 g/dL (6.6-8.7)
[2023-07-02 05:36] LABS: Aspartate Amino Transferase 12 U/L (0-32)
[2023-07-02] MEDS: aspirin 81 mg EC Tablet PO (06:07)
[2023-07-02] MEDS: duloxetine 60 mg Capsule 120 MG PO (06:07)
[2023-07-02] MEDS: pantoprazole DR 40 mg Tablet PO (06:07)
[2023-07-02] MEDS: budesonide 0.5 mg/2 mL Neb INHALATION (08:08)
[2023-07-02] MEDS: buPROPion XL (24 HR) 150 mg Tablet PO (09:16)
[2023-07-02] MEDS: doxycycline 100 mg Tablet PO (09:16)
[2023-07-02] MEDS: levothyroxine 88 mcg Tablet PO (09:16)
[2023-07-02] MEDS: apixaban 5 mg Tablet PO (09:16)
[2023-07-02] MEDS: lamoTRIgine 100 mg Tablet PO (09:17)
[2023-07-02] MEDS: montelukast sodium 10 mg Tablet PO (09:17)
[2023-07-02] MEDS: gabapentin 300 mg Capsule PO (09:17)
[2023-07-02] MEDS: predniSONE 20 mg Tablet 40 MG PO (09:17)
[2023-07-02] MEDS: losartan 50 mg Tablet 25 MG PO (09:17)
--- NOTE | 2023-07-02 09:38 | P.DS_ITS ---
Discharge Providers Date of Admission: 07/01/23 00:10 Date of Discharge: July 02, 2023 Attending Provider at Admission: Teresa Hargrove MD Attending Provider at Discharge: Hair Oropeza MD Primary Care Provider: Bandar Cloud MD Diagnoses at Discharge Discharge Diagnosis (1) Acute exacerbation of chronic obstructive airways disease: Status: Acute (2) Acute on chronic respiratory failure with hypoxemia: Status: Acute (3) Pulmonary embolism: Status: Acute Reason for Visit Reason for Visit: SOB Hospital Course Hospital Course Tomeka is a 57-year-old white female with known COPD who presented to the hospital with shortness of breath, and wheezing. She had no pneumonia on x-ray. She was found to have a COPD exacerbation. She was retaining CO2 on her initial ABG. She was given IV steroids, IV antibiotics, and pulmonary toilet with budesonide twice daily and DuoNeb every 4 hours. With this treatment, and being away from tobacco she significantly improved during her hospital stay where she could be discharged on July 02. At discharge she was back on her home oxygen, and feeling as if her breathing was near baseline. She was given an opportunity ask questions, and agreed with the plan of discharge and discharge medications. Other testing done in the hospital included normal troponins, normal BNP, and a negative rapid COVID. Physical Exam Narrative: General exam no distress Neck is supple Cardiovascular regular rate and rhythm Lungs improved aeration, and occasional expiratory wheeze Abdomen soft Extremities no cyanosis clubbing or edema Discharge Data Studies Completed and Pending Completed Studies During Hospitalization Category Date Time Status XR chest 1V portable [id number] Stat Exams 06/30/23 20:27 Completed Pending at discharge Category Date Time Status Blood Culture Stat Lab 06/30/23 20:43 Results Radiology Impressions Chest X-Ray 06/30/23 20:27 IMPRESSION: 1. No acute cardiopulmonary process. 2. Incidental/nonacute findings are listed in the report. Laboratory Results WBC 7.82 10^3/uL (3.29-11.43) 07/02/23 04:16 RBC 4.48 10^6/uL (3.85-5.65) 07/02/23 04:16 Hgb 13.70 g/dL (11.27-16.99) 07/02/23 04:16 Hct 43.4 % (36-47) 07/02/23 04:16 MCV 96.9 fl (85-98) 07/02/23 04:16 MCH 30.6 pg (27-33) 07/02/23 04:16 MCHC 31.6 g/dL (30-55) 07/02/23 04:16 RDW 12.4 % (12.1-15.1) 07/02/23 04:16 Plt Count 156 10^3/cmm (157-399) L 07/02/23 04:16 MPV 11.1 fL (7.4-10.4) H 07/02/23 04:16 Neut % (Auto) 89.3 % 07/02/23 04:16 Lymph % (Auto) 7.5 % 07/02/23 04:16 L[place] % (Auto) 2.7 % 07/02/23 04:16 Eos % (Auto) 0.0 % 07/02/23 04:16 Baso % (Auto) 0.0 % 07/02/23 04:16 Neut # (Auto) 6.98 10^3/uL (1.8-7.7) 07/02/23 04:16 Lymph # (Auto) 0.6 10^3/uL (0.8-4.8) L 07/02/23 04:16 [place] # (Auto) 0.2 10^3/uL (0.2-0.9) 07/02/23 04:16 Eos # (Auto) 0.0 10^3/uL (0.0-0.8) 07/02/23 04:16 Baso # (Auto) 0.0 10^3/uL (0.0-0.1) 07/02/23 04:16 Nucleated RBC % (auto) 0 % 07/02/23 04:16 Nucleated RBCs # 0.0 /100WBC 07/02/23 04:16 Specimen Type Arterial 06/30/23 20:45 Sample Site Brachial, left 06/30/23 20:45 ABG pH 7.35 (7.35-7.45) 06/30/23 20:45 ABG pCO2 73.6 mmHg (35-45) H* 06/30/23 20:45 ABG pO2 57.7 mmHg (80.0-100.0) L 06/30/23 20:45 ABG HCO3 40.5 mmol/L (22-26) H 06/30/23 20:45 ABG Base Excess 11.7 mmol/L (-2.0-2.0) H 06/30/23 20:45 Glenn Test N/a 06/30/23 20:45 Hematocrit 40.7 % (37-47) 06/30/23 20:45 Hgb O2 Saturation 87.0 % (95-100) L 06/30/23 20:45 Carboxyhemoglobin 4.0 %THgb (0.4-20.1) 06/30/23 20:45 Methemoglobin 0.4 % (0.4-1.5) 06/30/23 20:45 Total Hemoglobin 13.3 g/dL (12-16) 06/30/23 20:45 O2 Delivery Device Oxy mask 06/30/23 20:45 O2 Liters/Min 5.0 % 06/30/23 20:45 FiO2 40.0 % 06/30/23 20:45 Battery Charger Conveyor Line ID [email or web address] 06/30/23 20:45 Sodium 138 mmol/L (136-145) 07/02/23 04:16 Potassium 5.0 mmol/L (3.5-5.1) 07/02/23 04:16 Chloride 96 mmol/L (98-107) L 07/02/23 04:16 Carbon Dioxide 37 mmol/L (22-29) H 07/02/23 04:16 Anion Gap 10.0 (5-19) 07/02/23 04:16 BUN 9 mg/dL (6-20) 07/02/23 04:16 Creatinine 0.5 mg/dL (0.5-0.9) 07/02/23 04:16 GFR Calculation 126.3 mL/min (90-130) 07/02/23 04:16 Glucose 190 mg/dL (65-115) H 07/02/23 04:16 Calculated Osmolality 290 mOsm/kg (285-295) 07/02/23 04:16 Lactic Acid 0.8 mmol/L (0.5-2.2) 06/30/23 20:39 Calcium 9.4 mg/dL (8.5-10.5) 07/02/23 04:16 Magnesium 2.1 mg/dL (1.7-2.3) 07/02/23 04:16 Total Bilirubin 0.4 mg/dL (0.15-1.2) 07/02/23 04:16 AST 12 U/L (0-32) 07/02/23 04:16 ALT 12 U/L (0-33) 07/02/23 04:16 Alkaline Phosphatase 91 U/L (35-105) 07/02/23 04:16 Troponin T Baseline 7 ng/L (0-10) 06/30/23 20:39 Troponin T 120 Minute 7.03 ng/L (0-10) 06/30/23 22:38 Delta Troponin T 0.03 ABS# (0-10) 06/30/23 22:38 Troponin T Hi Sens 6Hr 6.16 ng/L (0-10) 07/01/23 02:26 Troponin T Hi Sens 6Hr Delta 0.16 ng/L (0-12) 07/01/23 02:26 NT-Pro-B Natriuret Pep 78 pg/mL (0-125) 07/01/23 02:26 Total Protein 6.8 g/dL (6.6-8.7) 07/02/23 04:16 Albumin 4.3 g/dL (3.5-5.2) 07/02/23 04:16 Globulin 2.5 g/dL (1.3-4.6) 07/02/23 04:16 SARS-CoV-2 Ag (Rapid) negative (Negative) 06/30/23 21:50 Vitals Last Vital Signs Temp 98.2 F 07/02/23 07:41 Pulse 73 07/02/23 08:09 Resp 18 07/02/23 08:09 BP 150/94 07/02/23 09:17 Pulse Ox 98 07/02/23 08:09 O2 Del Method Nasal Cannula 07/02/23 08:09 O2 Flow Rate 3 07/02/23 08:09 Discharge Plan Discharge Patient Disposition: Home Condition: Stable Prescriptions: New prednisone 20 mg Tablet 40 mg PO DAILY Qty: 8 0RF doxycycline monohydrate 100 mg Tablet 100 mg PO BID Qty: 14 0RF Continued Eliquis 5 mg tablet 5 mg PO BID (DME) cam boot See Rx Instructions .Route .MEDSUPPLY Qty: 1 0RF Rx Instructions: As directed (DME) CPAP Machine/Supplies See Rx Instructions .Route .MEDSUPPLY Qty: 1 0RF Rx Instructions: Order for CPAP Machine and Supplies (DME) CPAP w/Humidifier, Headgear See Rx Instructions .Route .MEDSUPPLY Qty: 1 0RF Rx Instructions: As directed quetiapine 150 mg tablet extended release 24 hr 150 mg PO BEDTIME Qty: 30 0RF lamotrigine 100 mg tablet 100 mg PO BID Qty: 60 0RF duloxetine [Cymbalta] 60 mg capsule,delayed release(DR/EC) 120 mg PO QAM Qty: 60 0RF montelukast 10 mg tablet 10 mg PO QAM albuterol sulfate 90 mcg/actuation HFA aerosol inhaler 2 inh INHALATION Q4H PRN (Reason: shortness of breath or wheezing) Qty: 18 0RF gabapentin 300 mg Capsule 300 mg PO TID acetaminophen 500 mg Tablet 1,000 - 1,500 mg PO Q4H PRN (Reason: Pain) levothyroxine 88 mcg tablet 88 mcg PO QAM valsartan 80 mg tablet 80 mg PO QAM azelastine 137 mcg (0.1 %) aerosol,spray 2 spray INTRANASAL BID bupropion HCl 150 mg tablet extended release 24 hr 150 mg PO QAM Trelegy Ellipta 100-62.5-25 mcg blister with device 1 inh inhalation DAILY 30 Days Qty: 28 3RF ipratropium-albuterol 0.5 mg-3 mg(2.5 mg base)/3 mL solution for nebulization 3 ml INHALATION QID omeprazole 20 mg capsule,delayed release(DR/EC) 40 mg PO QAM Aspir-81 81 mg Tablet,Delayed Release (Dr/Ec) 81 mg PO QAM Discontinued ibuprofen 200 mg Tablet 600 mg PO Q4H PRN (Reason: Pain) trazodone 50 mg tablet 100 mg PO BEDTIME PRN (Reason: insomnia) Discharge Orders: Discharge Order (Routine); Ordered 07/02/23 Ordered By: Hair Oropeza Referrals: Bandar Cloud MD [Primary Care Provider] - 4-7 days Discharge Diet: Cardiac Discharge Activity: Increase activity as tolerated Patient Instructions: Opioid Safety Activity Restrictions/Additional Instructions: Resume your oxygen at 3 L as you are using at home. Take all medicine as prescribed. Return for any concerns Stop smoking Visit with your physician regarding resumption of trazodone. You are on several different medications that are similar and how they work. Discharge Attestations Time Spent in Discharge Care*: greater than 30 min Status at Discharge: Cognitive status at discharge: cognitively intact , Behavioral status at discharge: cooperative , Quality Metrics Clinical Quality Measures [ No reported AMI, CVA or VTE this stay] Coding Level of Care Code 10245 Total time (in minutes) for Discharge: 35 Diagnoses Acute exacerbation of chronic obstructive airways disease J44.1 Acute on chronic respiratory failure with hypoxemia J96.21 Pulmonary embolism I26.99
== END 2023-07-02 10:45 | disposition home or self-care (01) ==
LOC: ER 23:22 → MEDSURG 07-01 01:31
PROVIDERS: Admitting Provider Internal Medicine; Emergency Provider Emergency Medicine; PCP Family Medicine; Visit Provider Internal Medicine
DX: J44.1 Chronic obstructive pulmonary disease with (acute) exacerbation (principal); J96.21 Acute and chronic respiratory failure with hypoxia; I26.99 Other pulmonary embolism without acute cor pulmonale; Z99.81 Dependence on supplemental oxygen; E03.9 Hypothyroidism, unspecified; I10 Essential (primary) hypertension; Z86.711 Personal history of pulmonary embolism; Z79.01 Long term (current) use of anticoagulants; G47.33 Obstructive sleep apnea (adult) (pediatric); E11.9 Type 2 diabetes mellitus without complications; E78.5 Hyperlipidemia, unspecified; Z86.19 Personal history of other infectious and parasitic diseases
CPT/HCPCS: 36415; 36600; 71045; 80053; 82805; 83605; 83735; 83880; 84484; 85025; 87040; 87426; 90471; 90732; 93005; 94640; 96365; 96374; 96375; 96376; 97110; 99285; G0378; J0696; J2930; J7030; J7512; J7626

== ENCOUNTER → 2023-08-20 08:42 | Outpatient (BNVA) | payer MEDICARE, MEDICAID, SELFPAY ==
[2020-07-18 17:32] VITALS: BP 115/65; BMI 41.0
== END ==
PROVIDERS: PCP Family Medicine; Visit Provider Specialist
DX: G47.33 Obstructive sleep apnea (adult) (pediatric) (principal); Z99.89 Dependence on other enabling machines and devices
CPT/HCPCS: 99213

== ENCOUNTER 2023-10-04 21:55 | Emergency (ER) | payer MEDICARE, MEDICAID, SELFPAY ==
[2020-07-18 17:32] VITALS: BP 115/65; BMI 41.0
[2023-10-04 22:01] VITALS: BP 110/73; PULSE 84; RESP 22; TEMP 36.8; O2SAT 93
--- NOTE | 2023-10-04 22:30 | XRR_ITS ---
PROCEDURE INFORMATION: Exam: XR Chest Exam date and time: 10/04/2023 10:59 PM Age: 58 years old Clinical indication: Shortness of breath; Patient HX: C/O SOB. History of copd. ; Additional info: Dyspnea TECHNIQUE: Imaging protocol: Radiologic exam of the chest. Views: 1 view. COMPARISON: CR XR chest 1V portable [id number] 06/30/2023 8:55 PM FINDINGS: Lungs: Subtle opacities in the right lung base laterally. Pleural spaces: Unremarkable. No pleural effusion. No pneumothorax. Heart/Mediastinum: Unremarkable. No cardiomegaly. Bones/joints: Unremarkable. XR/XR chest 1V portable [id number] IMPRESSION: Subtle opacities in the right lung base laterally.
[2023-10-05 00:37] LABS: Influenza A by IFA negative (Negative); Influenza B by IFA negative (Negative); SARS Covid-2 Antigen negative (Negative)
[2023-10-05 01:02] LABS: Basophils % 0.3 %; Eosinophils # 0.1 10^3/uL (0.0-0.8); Eosinophils % 1.5 %; Hematocrit 42.7 % (36-47); Lymphocytes # 1.4 10^3/uL (0.8-4.8); Lymphocytes % 15.4 %; Mean Corpuscular HGB Conc 31.4 g/dL (30-55); Mean Corpuscular Volume 95.7 fl (85-98); Mean Platelet Volume 11.2 fL (7.4-10.4); Monocytes # 0.6 10^3/uL (0.2-0.9); Monocytes % 6.4 %; Neutrophils # 6.78 10^3/uL (1.8-7.7); Neutrophils % 76.3 %; Nucleated Red Blood Cells % 0 %; Platelet Count 121 10^3/cmm (157-399); Red Blood Count 4.46 10^6/uL (3.85-5.65); Red Cell Distribution Width 12.9 % (12.1-15.1); White Blood Count 8.89 10^3/uL (3.29-11.43)
[2023-10-05 01:12] LABS: Alanine Aminotransferase 10 U/L (0-33); Albumin Level 3.9 g/dL (3.5-5.2); Alkaline Phosphatase 93 U/L (35-105); Aspartate Amino Transferase 13 U/L (0-32); Blood Urea Nitrogen 6 mg/dL (8-23); Calcium 9.1 mg/dL (8.5-10.5); Carbon Dioxide 33 mmol/L (22-29); Chloride 99 mmol/L (98-107); Globulin 2.8 g/dL (1.3-4.6); Glomerular Filtration Rate 162.8 mL/min (90-130); Glucose 114 mg/dL (65-115); Osmolality Calculated 284 mOsm/kg (285-295); Sodium 138 mmol/L (136-145); Total Bilirubin 0.6 mg/dL (0.15-1.2); Total Protein 6.7 g/dL (6.6-8.7)
[2023-10-05 01:30] LABS: Anion Gap 9.9 (5-19); Potassium 3.9 mmol/L (3.5-5.1)
[2023-10-05 02:03] VITALS: PULSE 87; RESP 18; O2SAT 92
[2023-10-05] MEDS: ipratropium-albuterol 3 mL Neb INHALATION (02:07)
[2023-10-05 02:10] VITALS: PULSE 84
--- NOTE | 2023-10-30 07:35 | W.ED.SOB ---
HPI - SOB/Dyspnea General: Chief Complaint: Shortness of Breath/Dyspnea Stated Complaint: Hard time breathing/sick Time Seen by Provider: 10/04/23 22:23 History of Present Illness: HPI Narrative: 58-year-old female who presents to the emergency department with complaints of nonproductive cough and increased shortness of breath over the previous 3 days. She states she has a longstanding history of COPD and has normally required 3 L of supplemental oxygen while at home. She states she has been recently exposed to sick contacts. She states she feels like she has worsening shortness of breath throughout the day today. She also has significant wheezing noted. Review of Systems General: Reports: 10 or more systems reviewed and unremarkable except in HPI and below Resp: Reports: dyspnea, non-productive cough and wheezing PFSH ED PFSH: Medical History Diabetes COPD exacerbation Pneumonia Left lower lobe pneumonia Fracture of distal end of right fibula Smoking Obstructive sleep apnea hypopnea, severe Narcolepsy with cataplexy Acute hypercapnic respiratory failure Acute exacerbation of chronic obstructive airways disease Psychiatric care Non-insulin dependent type 2 diabetes mellitus Pneumonia COPD (chronic obstructive pulmonary disease) Chronic COPD. Chronic smoking. She is aware of the risks of cigarette smoking with COPD. Tobacco use disorder, continuous Chronic post-traumatic stress disorder (PTSD) Bipolar 2 disorder Acute on chronic respiratory failure with hypoxemia Ovarian cyst Insomnia Smoking addiction Bilateral pulmonary embolism -on AC with Eliquis Hepatitis C virus infection cured after antiviral drug therapy Anxiety and depression Spinal stenosis GERD (gastroesophageal reflux disease) Hypothyroidism Chronic pain Obstructive sleep apnea Hyperlipidemia Hypertension Surgical History Status post left foot surgery H/O section Family History Mother Cancer Breast cancer Social History Smoking and tobacco/nicotine status: never used tobacco/nicotine Quit status (tobacco/nicotine): considering quitting Second hand smoke exposure: No Alcohol intake: never Substance/Drug Use: never Household members: children Current occupational status: unemployed Physical Exam Narrative: EXAM NARRATIVE: Constitutional: the patient appears well nourished and with normal development. Vital signs reviewed as documented. HENMT: Normocephalic, atraumatic. Extermal ears with normal appearance without drainage. Nose without drainage, normal appearance. Mucus membranes moist. Neck is supple, No jugular venous distension, trachea is midline, no appreciable carotid bruits. No lymphadenopathy. No meningeal signs. Flexion, extension and lateral rotation is without pain. Eyes: Pupils are equal, round, reactive to light and accommodation. No scleral icterus. Extra-ocular movement are intact. Thorax is symmetrical and with equal rise and fall with respirations. Resp: Scattered expiratory wheezing decreased bilaterally in the bases. No obvious increased work of breathing. Cardio: Regular rate and rhythm. Positive S1, S2. No appreciable murmurs, rubs or gallops. GI: Abdominal exam reveals normal bowel sounds to all quadrants. No organomegaly. No obvious palpable masses noted. No hepatomegally appreciated. Soft, nontender to palpation. Extremity: Extremities are non-edematous and both femoral and pedal pulses are 2+ and equal bilaterally. Moves all extremities well, sensation in all extremities. Neuro: Alert and oriented x4, person, place, time and situation. Cranial nerves II through XII are grossly intact, there is no focal neurological deficits that I can appreciate at present. Motor strength in the upper and lower extremities are equal and bilateral 5/5. Psych: Cooperative, calm, normal thought process, appropriate judgment. Skin: No lesions, rashes. No gross abnormalities noted. Back: Symmetrical, no obvious deformity, No CVA tenderness Course Vital Signs: Vital signs: Vital Signs Temperature 98.2 F 10/04/23 22:01 Pulse Rate 84 10/05/23 02:10 Respiratory Rate 18 10/05/23 02:03 Blood Pressure 110/73 10/04/23 22:01 Pulse Oximetry 92 10/05/23 02:03 Oxygen Delivery Me thod Nasal Cannula 10/05/23 02:03 Oxygen Flow Rate 4.5 10/05/23 02:03 MDM - SOB/Dyspnea Medical Decision Making Physical exam completed document I will obtain laboratory evaluation to include a CBC and CMP as well as a chest x-ray provide the patient steroids antibiotics and will reevaluate. Medical Records I reviewed the patient's medical records. Lab Data I reviewed the patient's lab results. 10/05/23 00:40 10/05/23 00:40 Labs/Radiology: Radiology Impressions Chest X-Ray 10/04/23 22:30 IMPRESSION: Subtle opacities in the right lung base laterally. Laboratory Results WBC 8.89 10^3/uL (3.29-11.43) 10/05/23 00:40 RBC 4.46 10^6/uL (3.85-5.65) 10/05/23 00:40 Hgb 13.40 g/dL (11.27-16.99) 10/05/23 00:40 Hct 42.7 % (36-47) 10/05/23 00:40 MCV 95.7 fl (85-98) 10/05/23 00:40 MCH 30.0 pg (27-33) 10/05/23 00:40 MCHC 31.4 g/dL (30-55) 10/05/23 00:40 RDW 12.9 % (12.1-15.1) 10/05/23 00:40 Plt Count 121 10^3/cmm (157-399) L 10/05/23 00:40 MPV 11.2 fL (7.4-10.4) H 10/05/23 00:40 Neut % (Auto) 76.3 % 10/05/23 00:40 Lymph % (Auto) 15.4 % 10/05/23 00:40 [place] % (Auto) 6.4 % 10/05/23 00:40 Eos % (Auto) 1.5 % 10/05/23 00:40 Baso % (Auto) 0.3 % 10/05/23 00:40 Neut # (Auto) 6.78 10^3/uL (1.8-7.7) 10/05/23 00:40 Lymph # (Auto) 1.4 10^3/uL (0.8-4.8) 10/05/23 00:40 [place] # (Auto) 0.6 10^3/uL (0.2-0.9) 10/05/23 00:40 Eos # (Auto) 0.1 10^3/uL (0.0-0.8) 10/05/23 00:40 Baso # (Auto) 0.0 10^3/uL (0.0-0.1) 10/05/23 00:40 Nucleated RBC % (auto) 0 % 10/05/23 00:40 Nucleated RBCs # 0.0 /100WBC 10/05/23 00:40 Sodium 138 mmol/L (136-145) 10/05/23 00:40 Potassium 3.9 mmol/L (3.5-5.1) 10/05/23 00:40 Chloride 99 mmol/L (98-107) 10/05/23 00:40 Carbon Dioxide 33 mmol/L (22-29) H 10/05/23 00:40 Anion Gap 9.9 (5-19) 10/05/23 00:40 BUN 6 mg/dL (8-23) L 10/05/23 00:40 Creatinine 0.4 mg/dL (0.5-0.9) L 10/05/23 00:40 GFR Calculation 162.8 mL/min (90-130) H 10/05/23 00:40 Glucose 114 mg/dL (65-115) 10/05/23 00:40 Calculated Osmolality 284 mOsm/kg (285-295) L 10/05/23 00:40 Calcium 9.1 mg/dL (8.5-10.5) 10/05/23 00:40 Total Bilirubin 0.6 mg/dL (0.15-1.2) 10/05/23 00:40 AST 13 U/L (0-32) 10/05/23 00:40 ALT 10 U/L (0-33) 10/05/23 00:40 Alkaline Phosphatase 93 U/L (35-105) 10/05/23 00:40 Total Protein 6.7 g/dL (6.6-8.7) 10/05/23 00:40 Albumin 3.9 g/dL (3.5-5.2) 10/05/23 00:40 Globulin 2.8 g/dL (1.3-4.6) 10/05/23 00:40 Influenza Type A Ag negative (Negative) 10/05/23 00:00 Influenza Type B Ag negative (Negative) 10/05/23 00:00 SARS-CoV-2 Ag (Rapid) negative (Negative) 10/05/23 00:00 All radiology interpretation(s) finalized by discharge Discharge Plan Discharge Patient Disposition: Home Clinical Impression: COPD exacerbation Condition: Stable Prescriptions: New azithromycin [Zithromax TRI-ALEXX] 500 mg tablet See Rx Instructions .ROUTE .COMPLEX Qty: 3 0RF Rx Instructions: For 250 mg dose pack: take 500 mg today (day 1), then 250 mg for 4 days (days 2-5) No Action Eliquis 5 mg tablet 5 mg PO BID (DME) cam boot See Rx Instructions .Route .MEDSUPPLY Qty: 1 0RF Rx Instructions: As directed varenicline 1 mg tablet 1 mg PO BID Qty: 56 3RF Rx Instructions: 1/2 tab AM 7 days then 1 tab in AM 7 days then 1 tab in AM & 1 in early afternoon.Take with food never after 4PM (DME) CPAP Machine/Supplies See Rx Instructions .Route .MEDSUPPLY Qty: 1 0RF Rx Instructions: Order for CPAP Machine and Supplies (DME) CPAP w/Humidifier, Headgear See Rx Instructions .Route .MEDSUPPLY Qty: 1 0RF Rx Instructions: As directed quetiapine 150 mg tablet extended release 24 hr 150 mg PO BEDTIME Qty: 30 0RF lamotrigine 100 mg tablet 100 mg PO BID Qty: 60 0RF duloxetine [Cymbalta] 60 mg capsule,delayed release(DR/EC) 120 mg PO QAM Qty: 60 0RF montelukast 10 mg tablet 10 mg PO QAM albuterol sulfate 90 mcg/actuation HFA aerosol inhaler 2 inh INHALATION Q4H PRN (Reason: shortness of breath or wheezing) Qty: 18 0RF gabapentin 300 mg Capsule 300 mg PO TID acetaminophen 500 mg Tablet 1,000 - 1,500 mg PO Q6H PRN (Reason: Pain) levothyroxine 88 mcg tablet 88 mcg PO QAM valsartan 80 mg tablet 80 mg PO QAM azelastine 137 mcg (0.1 %) aerosol,spray 2 spray INTRANASAL BID bupropion HCl 150 mg tablet extended release 24 hr 150 mg PO QAM Trelegy Ellipta 100-62.5-25 mcg blister with device 1 inh inhalation DAILY 30 Days Qty: 28 3RF trazodone 50 mg Tablet 100 mg PO BEDTIME ipratropium-albuterol 0.5 mg-3 mg(2.5 mg base)/3 mL solution for nebulization 3 ml INHALATION QID omeprazole 20 mg capsule,delayed release(DR/EC) 40 mg PO QAM aspirin 81 mg Tablet,Delayed Release (Dr/Ec) 81 mg PO QAM Discharge Orders: Discharge ED (Routine); Ordered 10/05/23 Ordered By: Nithin Lozada Referrals: Bandar Cloud MD [Primary Care Provider] - Discharge Diet: Advance as tolerated Discharge Activity: Resume usual activity Patient Instructions: Opioid Safety, Pain Management Activity Restrictions/Additional Instructions: Activity Restrictions/Additional Instructions: Thank you for choosing [facility] for your healthcare needs today. Please realize that you were seen in the Emergency Department and that we are providing you with an emergency medical screening exam and this may not be a complete and all inclusive of all the testing and or medical work-up that you may need to determine your ailment or severity of your illness. It is very important that you follow-up as instructed with your Primary care provider or Specialist for additional evaluation and to discuss your medical treatment plan. You may return to the Emergency Department should you have concerns or if your condition changes or worsens in any way. Coding Level of Care Code ED Palliative Care Specialist for Parmjit Colin
== END 2023-10-05 03:34 | disposition home or self-care (01) ==
PROVIDERS: Emergency Medicine; Emergency Provider Internal Medicine; PCP Family Medicine
DX: J44.1 Chronic obstructive pulmonary disease with (acute) exacerbation (principal); Z79.01 Long term (current) use of anticoagulants; Z79.82 Long term (current) use of aspirin; Z11.52 Encounter for screening for COVID-19; E11.9 Type 2 diabetes mellitus without complications; Z86.19 Personal history of other infectious and parasitic diseases; E78.5 Hyperlipidemia, unspecified; I10 Essential (primary) hypertension
CPT/HCPCS: 36415; 71045; 80053; 85025; 87426; 87804; 94640; 99284

== ENCOUNTER 2023-10-07 11:22 | Emergency (ER) | payer MEDICARE, MEDICAID, SELFPAY ==
[2020-07-18 17:32] VITALS: BP 115/65; BMI 41.0
[2023-10-07 11:23] VITALS: BP 139/84; PULSE 91; RESP 18; TEMP 36.7; O2SAT 96; BMI 37.9
--- NOTE | 2023-10-07 11:38 | XR_ITS ---
WS: [id number] Portable AP upright chest, 10/07/2023 Clinical Data: copd Comparison: Portable chest, 10/04/2023 Findings: There are bibasilar pulmonary opacities. These changes have occurred in the last 3 days. Th e heart is slightly enlarged. No pneumothorax is seen. The upper lobes are clear. The pulmonary vascu larity is not increased. No nodules or masses are seen. Impression: 1. Development of bibasilar pulmonary opacities which could represent pneumonia and/or atelectasis. 2. Cardiomegaly.
--- NOTE | 2023-10-07 11:40 | ED.C_ITS ---
HPI - Psych 2 General: Chief Complaint: Psychiatric Symptoms Stated Complaint: mhe eval Time Seen by Provider: 10/07/23 11:28 Source: patient and EMS Mode of arrival: EMS Limitations: no limitations History of Present Illness: 58-year-old female who has COPD she is o n 3 L oxygen at home. States she lives with her daughter usually helps take care of her but states that her daughter and left her home alone all weekend and her daughter showed up this morning and she is very upset she got an argument with her daughter. She had called EMS because she felt depressed and did make a statement that she just wants to but she states that now she is not suicidal or homicidal. I did inform I could transfer to geriatric psych facility and she is refusing at this time we will have Dr. Vázquez come and see Associated symptoms: Reports depression; Deny suicidal ideation Review of Systems 2 Const: Denies: fever(s), chills, body aches or change in appetite Eyes: Denies: blurry vision or eye discomfort ENMT: Denies: throat pain or dental pain Card: Denies: chest pain Resp: Denies: dyspnea GI: Denies: abdominal pain, nausea, vomiting or diarrhea : Denies: dysuria Musc: Denies: neck pain or back pain Skin/Breast: Denies: rash Neuro: Denies: headache(s) Psych: Reports: depression; Denies: suicidal ideation PFSH ED 2 PFSH: Medical History Diabetes COPD exacerbation Pneumonia Left lower lobe pneumonia Fracture of distal end of right fibula Smoking Obstructive sleep apnea hypopnea, severe Narcolepsy with cataplexy Acute hypercapnic respiratory failure Acute exacerbation of chronic obstructive airways disease Psychiatric care Non-insulin dependent type 2 diabetes mellitus Pneumonia COPD (chronic obstructive pulmonary disease) Chronic COPD. Chronic smoking. She is aware of the risks of cigarette smoking with COPD. Tobacco use disorder, continuous Chronic post-traumatic stress disorder (PTSD) Bipolar 2 disorder Acute on chronic respiratory failure with hypoxemia Ovarian cyst Insomnia Smoking addiction Bilateral pulmonary embolism -on AC with Eliquis Hepatitis C virus infection cured after antiviral drug therapy Anxiety and depression Spinal stenosis GERD (gastroesophageal reflux disease) Hypothyroidism Chronic pain Obstructive sleep apnea Hyperlipidemia Hypertension Surgical History Status post left foot surgery H/O section Family History Mother Cancer Breast cancer Social History Smoking and tobacco/nicotine status: never used tobacco/nicotine Quit status (tobacco/nicotine): considering quitting Second hand smoke exposure: No Alcohol intake: never Substance/Drug Use: never Household members: children Current occupational status: unemployed Physical Exam 2 Const: COMMON NORMALS: patient oriented x3 HENMT: COMMON NORMALS: normocephalic and atraumatic HEAD & SCALP: n ormocephalic and atraumatic Eye: COMMON NORMALS: Equal, round and reactive pupils present and EOMs intact bilaterally PUPIL: Yes Equal, round and reactive pupils present Neck/C-Spine: COMMON NORMALS: full ROM and supple Chest: COMMONS NORMALS: normal inspection of the chest and normal palpation of entire chest wall Resp: COMMON NORMALS: normal respiratory effort, No retractions, No use of accessory muscles and clear to auscultation bilaterally AUSCULTATION: clear to auscultation bilaterally Cardio: COMMON NORMALS: regular rate, regular rhythm and No murmurs present (Cardio) RATE: regular rate RHYTHM: regular rhythm GI: COMMON NORMALS: Normal to inspection, nondistended, normoactive bowel sounds present, Soft to palpation, non-tender and no masses PALPATION: Yes Soft to palpation Extremity: COMMON NORMALS: normal to inspection and full ROM Neuro: COMMON NORMALS: patient oriented x3, moves all extremities and no focal motor deficits Psych: COMMON NORMALS: mental status grossly normal, Normal thought process present and cooperative THOUGHT PROCESS: Normal thought process present Skin: COMMON NORMALS: no rashes or lesions noted and no wounds GENERAL SKIN EXAM: no rashes or lesions noted Course 2 Vital Signs: Vital signs: Vital Signs Temperature 98.1 F 10/07/23 11:23 Pulse Rate 91 10/07/23 11:23 Respiratory Rate 18 10/07/23 11:23 Blood Pressure 139/84 10/07/23 11:23 Pulse Oximetry 96 10/07/23 11:23 Oxygen Delivery Me thod Nasal Cannula 10/07/23 11:23 Oxygen Flow Rate 3 10/07/23 11:23 MDM - Psych Medical Decision Making Patient presents here with depression now she is here she is adamantly denying being suicidal patient was evaluated by her psychiatrist Dr. Vázquez who agrees she is not a threat to herself or others will discharge at this time. Medical Records I reviewed the patient's medical records. Lab Data I reviewed the patient's lab results. 10/07/23 11:55 10/07/23 11:55 Laboratory Results WBC 6.73 10^3/uL (3.29-11.43) 10/07/23 11:55 RBC 4.57 10^6/uL (3.85-5.65) 10/07/23 11:55 Hgb 13.80 g/dL (11.27-16.99) 10/07/23 11:55 Hct 43.4 % (36-47) 10/07/23 11:55 MCV 95.0 fl (85-98) 10/07/23 11:55 MCH 30.2 pg (27-33) 10/07/23 11:55 MCHC 31.8 g/dL (30-55) 10/07/23 11:55 RDW 13.0 % (12.1-15.1) 10/07/23 11:55 Plt Count 163 10^3/cmm (157-399) 10/07/23 11:55 MPV 10.6 fL (7.4-10.4) H 10/07/23 11:55 Neut % (Auto) 85.4 % 10/07/23 11:55 Lymph % (Auto) 8.0 % 10/07/23 11:55 [place] % (Auto) 6.1 % 10/07/23 11:55 Eos % (Auto) 0.0 % 10/07/23 11:55 Baso % (Auto) 0.1 % 10/07/23 11:55 Neut # (Auto) 5.74 10^3/uL (1.8-7.7) 10/07/23 11:55 Lymph # (Auto) 0.5 10^3/uL (0.8-4.8) L 10/07/23 11:55 [place] # (Auto) 0.4 10^3/uL (0.2-0.9) 10/07/23 11:55 Eos # (Auto) 0.0 10^3/uL (0.0-0.8) 10/07/23 11:55 Baso # (Auto) 0.0 10^3/uL (0.0-0.1) 10/07/23 11:55 Nucleated RBC % (auto) 0 % 10/07/23 11:55 Nucleated RBCs # 0.0 /100WBC 10/07/23 11:55 Sodium 135 mmol/L (136-145) L 10/07/23 11:55 Potassium 3.6 mmol/L (3.5-5.1) 10/07/23 11:55 Chloride 94 mmol/L (98-107) L 10/07/23 11:55 Carbon Dioxide 34 mmol/L (22-29) H 10/07/23 11:55 Anion Gap 10.6 (5-19) 10/07/23 11:55 BUN 12 mg/dL (8-23) 10/07/23 11:55 Creatinine 0.5 mg/dL (0.5-0.9) 10/07/23 11:55 GFR Calculation 125.9 mL/min (90-130) 10/07/23 11:55 Glucose 133 mg/dL (65-115) H 10/07/23 11:55 Calculated Osmolality 282 mOsm/kg (285-295) L 10/07/23 11:55 Calcium 9.7 mg/dL (8.5-10.5) 10/07/23 11:55 Total Bilirubin 0.5 mg/dL (0.15-1.2) 10/07/23 11:55 AST 13 U/L (0-32) 10/07/23 11:55 ALT 12 U/L (0-33) 10/07/23 11:55 Alkaline Phosphatase 90 U/L (35-105) 10/07/23 11:55 Total Protein 7.2 g/dL (6.6-8.7) 10/07/23 11:55 Albumin 4.1 g/dL (3.5-5.2) 10/07/23 11:55 Globulin 3.1 g/dL (1.3-4.6) 10/07/23 11:55 Salicylates < 0.3 mg/dL (3-10) L 10/07/23 11:55 Urine Opiates Screen Negative ng/mL (Negative) 10/07/23 11:58 Acetaminophen < 5.0 ug/mL (10-30) L 10/07/23 11:55 Ur Barbiturates Screen Negative ng/mL (Negative) 10/07/23 11:58 Ur Phencyclidine Scrn Negative ng/mL (Negative) 10/07/23 11:58 Ur Amphetamines Screen Negative ng/mL (Negative) 10/07/23 11:58 U Benzodiazepines Scrn Negative ng/mL (Negative) 10/07/23 11:58 Urine Cocaine Screen Negative ng/mL (Negative) 10/07/23 11:58 U Marijuana (THC) Screen Positive ng/mL (Negative) H 10/07/23 11:58 Ethyl Alcohol < 10 mg/dL (0-10) 10/07/23 11:55 SARS-CoV-2 Ag (Rapid) negative (Negative) 10/07/23 11:57 No radiology studies performed this visit EKG Data EKG 1: I personally reviewed and interpreted this EKG as follows: EKG interpretation date: 10/07/23 EKG interpretation time: 11:51 Interpretation: nsr hr [address] or t wave abnormalities qrs 96 qtc 400 Discharge Plan Discharge Patient Disposition: Home Clinical Impression: Depression Condition: Stable Prescriptions: No Action Eliquis 5 mg tablet 5 mg PO BID (DME) cam boot See Rx Instructions .Route .MEDSUPPLY Qty: 1 0RF Rx Instructions: As directed varenicline 1 mg tablet 1 mg PO BID Qty: 56 3RF Rx Instructions: 1/2 tab AM 7 days then 1 tab in AM 7 days then 1 tab in AM & 1 in early afternoon.Take with food never after 4PM (DME) CPAP Machine/Supplies See Rx Instructions .Route .MEDSUPPLY Qty: 1 0RF Rx Instructions: Order for CPAP Machine and Supplies (DME) CPAP w/Humidifier, Headgear See Rx Instructions .Route .MEDSUPPLY Qty: 1 0RF Rx Instructions: As directed quetiapine 150 mg tablet extended release 24 hr 150 mg PO BEDTIME Qty: 30 0RF lamotrigine 100 mg tablet 100 mg PO BID Qty: 60 0RF duloxetine [Cymbalta] 60 mg capsule,delayed release(DR/EC) 120 mg PO QAM Qty: 60 0RF montelukast 10 mg tablet 10 mg PO QAM albuterol sulfate 90 mcg/actuation HFA aerosol inhaler 2 inh INHALATION Q4H PRN (Reason: shortness of breath or wheezing) Qty: 18 0RF gabapentin 300 mg Capsule 300 mg PO TID acetaminophen 500 mg Tablet 1,000 - 1,500 mg PO Q6H PRN (Reason: Pain) levothyroxine 88 mcg tablet 88 mcg PO QAM valsartan 80 mg tablet 80 mg PO QAM azelastine 137 mcg (0.1 %) aerosol,spray 2 spray INTRANASAL BID bupropion HCl 150 mg tablet extended release 24 hr 150 mg PO QAM Trelegy Ellipta 100-62.5-25 mcg blister with device 1 inh inhalation DAILY 30 Days Qty: 28 3RF prednisone 20 mg tablet 40 mg PO DAILY 5 Days Qty: 10 0RF azithromycin [Zithromax TRI-ALEXX] 500 mg tablet See Rx Instructions .ROUTE .COMPLEX Qty: 3 0RF Rx Instructions: For 250 mg dose pack: take 500 mg today (day 1), then 250 mg for 4 days (days 2-5) trazodone 50 mg Tablet 100 mg PO BEDTIME ipratropium-albuterol 0.5 mg-3 mg(2.5 mg base)/3 mL solution for nebulization 3 ml INHALATION QID omeprazole 20 mg capsule,delayed release(DR/EC) 40 mg PO QAM aspirin 81 mg Tablet,Delayed Release (Dr/Ec) 81 mg PO QAM Discharge Orders: Discharge ED (Routine); Ordered 10/07/23 Ordered By: Mar Kirk Referrals: Bandar Cloud MD [Primary Care Provider] - Discharge Diet: Advance as tolerated Discharge Activity: Resume usual activity Patient Instructions: Depression (ED) Coding Level of Care Code ED Heel Burnisher for Parmjit Colin
--- NOTE | 2023-10-07 11:51 | ECG_ITS ---
[facility] Test Date: 2023-10-07 Pat Name: Tomeka Marshall Department: Room: Gender: Female Excel Expert: : 1965 Requested By: Mar Kirk Order Number: [id number] Umer MD: Tisha Wright M.D. Measurements Intervals Wilder Rate: 71 P: 77 OK: 157 QRS: 87 QRSD: 96 T: 80 QT: 377 QTc: 412 Interpretive Statements SINUS RHYTHM Compared to ECG 07/01/2023 02:54:47 No significant changes Electronically Signed On 10-07-2023 17:41:06 REMOTE ENCODING CENTER MANAGER by Tisha Wright M.D. [id number]
--- NOTE | 2023-10-07 11:55 | PC.PHAR ---
Addendum entered by Amirah Cortez 10/07/23 12:35: medication entered are from the pts [facility] med list and what was entered on previously entered med list-notes are made in the pharmacy comments Original Note: pt states she has in home health care nurse-called [facility] [phone]-per zoila from [facility] will fax med list
[2023-10-07 12:01] LABS: Basophils % 0.1 %; Hematocrit 43.4 % (36-47); Lymphocytes # 0.5 10^3/uL (0.8-4.8); Mean Corpuscular HGB Conc 31.8 g/dL (30-55); Mean Corpuscular Hemoglobin 30.2 pg (27-33); Mean Platelet Volume 10.6 fL (7.4-10.4); Monocytes # 0.4 10^3/uL (0.2-0.9); Monocytes % 6.1 %; Neutrophils # 5.74 10^3/uL (1.8-7.7); Neutrophils % 85.4 %; Nucleated Red Blood Cells % 0 %; Platelet Count 163 10^3/cmm (157-399); Red Blood Count 4.57 10^6/uL (3.85-5.65); White Blood Count 6.73 10^3/uL (3.29-11.43)
[2023-10-07 12:21] LABS: Alanine Aminotransferase 12 U/L (0-33); Albumin Level 4.1 g/dL (3.5-5.2); Alkaline Phosphatase 90 U/L (35-105); Anion Gap 10.6 (5-19); Aspartate Amino Transferase 13 U/L (0-32); Blood Urea Nitrogen 12 mg/dL (8-23); Calcium 9.7 mg/dL (8.5-10.5); Carbon Dioxide 34 mmol/L (22-29); Chloride 94 mmol/L (98-107); Globulin 3.1 g/dL (1.3-4.6); Glomerular Filtration Rate 125.9 mL/min (90-130); Glucose 133 mg/dL (65-115); Osmolality Calculated 282 mOsm/kg (285-295); Potassium 3.6 mmol/L (3.5-5.1); Sodium 135 mmol/L (136-145); Total Bilirubin 0.5 mg/dL (0.15-1.2); Total Protein 7.2 g/dL (6.6-8.7)
[2023-10-07 12:25] LABS: Acetaminophen < 5.0 ug/mL (10-30); Alcohol Level < 10 mg/dL (0-10); Salicylate < 0.3 mg/dL (3-10)
[2023-10-07 12:31] LABS: Amphetamines Screen Urine Negative (Negative); Barbiturates Screen Urine Negative (Negative); Benzodiazepines Screen Urine Negative (Negative); Cocaine Screen Urine Negative (Negative); Opiate Screen Urine Negative (Negative); PCP Screen Urine Negative (Negative); THC Screen Urine Positive (Negative)
[2023-10-07 12:39] LABS: SARS Covid-2 Antigen negative (Negative)
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
== END 2023-10-07 12:52 | disposition home or self-care (01) ==
PROVIDERS: Emergency Provider Emergency Medicine; PCP Family Medicine
DX: F32.A Depression, unspecified (principal); Z79.01 Long term (current) use of anticoagulants; Z79.82 Long term (current) use of aspirin; Z11.52 Encounter for screening for COVID-19; E11.9 Type 2 diabetes mellitus without complications; J44.9 Chronic obstructive pulmonary disease, unspecified; Z99.81 Dependence on supplemental oxygen; Z86.19 Personal history of other infectious and parasitic diseases; E78.5 Hyperlipidemia, unspecified; I10 Essential (primary) hypertension
CPT/HCPCS: 36415; 71045; 80053; 80306; 80307; 85025; 87426; 93005; 99285

== ENCOUNTER 2023-12-03 10:39 | Observation (INO) | payer MEDICARE, MEDICAID, SELFPAY ==
[2020-07-18 17:32] VITALS: BP 115/65; BMI 41.0
[2023-12-03] VITALS (15 sets, daily range): BP systolic 120–144; BP diastolic 73–96; PULSE 65–85; RESP 16–33; TEMP 36.5–36.8; O2SAT 91–97; BMI 37.9
--- NOTE | 2023-12-03 10:57 | XRR_ITS ---
PROCEDURE INFORMATION: Exam: XR Chest Exam date and time: 12/03/2023 11:27 AM Age: 58 years old Clinical indication: Shortness of breath; Additional info: SOB TECHNIQUE: Imaging protocol: Radiologic exam of the chest. Views: 1 view. COMPARISON: CR XR chest 1V portable [id number] 10/07/2023 11:43 AM FINDINGS: Lungs: Mildly increased diffuse bilateral pulmonary edema and/or pneumonitis. This may be superimposed upon some scarring. Pleural spaces: Unremarkable. No pleural effusion. No pneumothorax. Heart/Mediastinum: Unchanged mild cardiomegaly. Bones/joints: Unremarkable. XR/XR chest 1V portable [id number] IMPRESSION: 1. Slightly increased diffuse bilateral pulmonary edema and/or pneumonitis which may be superimposed upon some scarring. 2. Unchanged mild cardiomegaly.
--- NOTE | 2023-12-03 10:58 | ECG_ITS ---
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 Measurements Intervals [place] Rate: 67 P: 63 [place]: 162 QRS: 84 QRSD: 96 T: 88 QT: 406 QTc: 429 Interpretive Statements SINUS RHYTHM Compared to ECG 10/07/2023 11:51:49 No significant changes Electronically Signed On 12-03-2023 16:30:06 PORTFOLIO ARCHITECT by Loyd Joseph M.D. [id number]
--- NOTE | 2023-12-03 10:59 | ED_ITS ---
HPI - SOB/Dyspnea 2 General: Chief Complaint: Shortness of Breath/Dyspnea Stated Complaint: SOB Time Seen by Provider: 12/03/23 10:41 Source: patient, family and EMS Mode of arrival: EMS Limitations: no limitations History of Present Illness: HPI Narrative: Patient is a 58-year-old female with an extensive past medical history including diabetes, COPD, chronic smoking, JAS, psychiatric illness, hyperlipidemia, and HTN here for complaints of shortness of breath. Patient states she normally wears 3 L of oxygen continuously for her COPD. She arrives to the ED today requiring close to 4-5 and is still satting at 88%. She states she has been sick with cough and shortness of breath over the past 2 to 3 days. She reports low-grade fevers. No body aches. Denies rhinorrhea, nasal congestion, sinus pain/pressure. No sore throat. States she is not having chest pain. She has not noticed any swelling to her lower extremities. She has no known history of CHF. MD elicited complaint: shortness of breath Pertinent past history: COPD Onset (ago): day(s) Timing: constant Severity: severe Relieving factors: nothing Known history of: COPD Associated symptoms: Reports chest congestion and fever(s) (low grade fever); Deny abdominal pain, chest pain, extremity pain, hemoptysis, lightheadedness, nausea, orthopnea, palpitations, syncope or vomiting Treatment prior to arrival: oxygen and other (duo-neb) Related Data: Home oxygen amount: 3 liters Review of Systems 2 Const: Reports: fever(s) (low grade fever); Denies: chills, body aches, fatigue or malaise ENMT: Denies: throat pain, odynophagia, ear or mastoid pain, nasal discharge, nasal congestion or sinus pain Card: Denies: chest pain, palpitations, irregular heart rhythm, edema, swelling of feet/ankles, lightheadedness, syncope, pre-syncope, dyspnea on exertion, orthopnea, leg pain with exertion or acrocyanosis Resp: Reports: dyspnea, productive cough and chest congestion; Denies: wheezing, stridor or hemoptysis GI: Denies: abdominal pain, nausea, vomiting or diarrhea : Denies: flank pain, difficulty voiding, dysuria, urinary frequency, urinary urgency or urinary hesitancy Musc: Denies: neck pain, back pain, extremity pain, extremity swelling, joint pain or joint swelling Skin/Breast: Denies: rash Neuro: Denies: headache(s), numbness in extremities, weakness in extremities or sensory changes PFSH ED 2 PFSH: Medical History (Updated 12/03/23 @ 13:51 by COLIN Green) Hypothyroidism Left upper lobe pulmonary nodule Fracture of fifth metatarsal bone of right foot Mixed urinary incontinence due to female genital prolapse POP-Q stage 3 cystocele POP-Q stage 2 rectocele Chronic respiratory failure with hypoxia and hypercapnia Fracture of distal end of right fibula Obstructive sleep apnea hypopnea, severe Narcolepsy with cataplexy Non-insulin dependent type 2 diabetes mellitus Pneumonia COPD (chronic obstructive pulmonary disease) Chronic COPD. Chronic smoking. She is aware of the risks of cigarette smoking with COPD. Tobacco use disorder, continuous Chronic post-traumatic stress disorder (PTSD) Bipolar 2 disorder Ovarian cyst Insomnia Bilateral pulmonary embolism -on AC with Eliquis Hepatitis C virus infection cured after antiviral drug therapy Anxiety and depression Spinal stenosis GERD (gastroesophageal reflux disease) Chronic pain Obstructive sleep apnea home cpap but needs bipap Hyperlipidemia Hypertension Surgical History (Updated 12/03/23 @ 13:31 by Naya Acuña MD) H/O tubal ligation History of colonoscopy 2019 History of elbow surgery left-2017 Status post left foot surgery H/O section Family History Mother Cancer Breast cancer Diabetes Social History Smoking and tobacco/nicotine status: never used tobacco/nicotine Quit status (tobacco/nicotine): considering quitting Second hand smoke exposure: No Alcohol intake: never Substance/Drug Use: never Household members: children Current occupational status: unemployed Physical Exam 2 Const: COMMON NORMALS: patient oriented x3, no limitations, alert and well nourished GENERAL APPEARANCE: cooperative and in distress (acute respiratory failure with hypoxia and tachypnea) ORIENTATION/CONSCIOUSNESS: Yes awake, Yes oriented to person, Yes oriented to place and Yes oriented to time HENMT: COMMON NORMALS: normocephalic and atraumatic HEAD & SCALP: normal to inspection, normocephalic and atraumatic Eye: GENERAL EYE: appearance normal, both eyes and all related structures Neck/C-Spine: COMMON NORMALS: full ROM, no lymphadenopathy, no meningeal signs and no JVD Chest: COMMONS NORMALS: normal inspection of the chest and normal palpation of entire chest wall Resp: EFFORT & INSPECTION: Yes labored and Yes Actively coughing A USCULTATION: rhonchi Cardio: COMMON NORMALS: no JVD, regular rate and regular rhythm RATE: r egular rate RHYTHM: regular rhythm GI: COMMON NORMALS: Normal to inspection, nondistended, normoactive bowel sounds present, Soft to palpation and non-tender PALPATION: Yes Soft to palpation Extremity: COMMON NORMALS: no clubbing, cyanosis or edema, no calf tenderness and no pedal edema GENERAL: Yes normal exam except as noted Neuro: NAZIA COMA SCALE: document GCS findings Nazia coma scale eye opening: Spontaneous Nazia coma scale verbal response: Orientated Nazia coma scale motor response: Obey commands Nazia coma scale total score: 15 COMMON NORMALS: patient oriented x3, moves all extremities, no focal motor deficits, no sensory deficits noted and gait normal SENSORIUM/ORIENTATION: Yes alert, Yes oriented to person, Yes oriented to place and Yes oriented to time MENINGEAL SIGNS: Yes no meningeal signs Skin: COMMON NORMALS: no rashes or lesions noted GENERAL SKIN EXAM: no rashes or lesions noted Course 2 Consultations: Consultation #1: Dr. Acuña-accepts admission Vital Signs: Vital signs: Vital Signs Temperature 98.3 F 12/03/23 10:40 Pulse Rate 72 12/03/23 11:22 Respiratory Rate 28 H 12/03/23 11:21 Blood Pressure 139/96 12/03/23 10:40 Pulse Oximetry 94 12/03/23 11:22 Oxygen Delivery Me thod BiPAP 12/03/23 11:21 Oxygen Flow Rate 4 12/03/23 10:40 Fraction of Inspir ed Oxygen 40 12/03/23 11:22 MDM - SOB/Dyspnea Medical Decision Making Patient is a 58-year-old female with a history of COPD here for increased dyspnea from her baseline as well as a cough and low-grade fevers. Patient was requiring increased amounts of oxygen above baseline upon arrival. She eventually required BiPAP for hypercapnia respiratory failure although this is chronic for her. Dr. Kirk is aware of patient and agrees with workup here in the emergency department and plan for admission. I spoke with Dr. Acuña/hospitalist who will accept admission. Lab Data 12/03/23 11:33 12/03/23 11:33 Labs/Radiology: Radiology Impressions Chest X-Ray 12/03/23 10:57 IMPRESSION: 1. Slightly increased diffuse bilateral pulmonary edema and/or pneumonitis which may be superimposed upon some scarring. 2. Unchanged mild cardiomegaly. Laboratory Results WBC 3.94 10^3/uL (3.29-11.43) 12/03/23 11:33 RBC 4.72 10^6/uL (3.85-5.65) 12/03/23 11:33 Hgb 13.90 g/dL (11.27-16.99) 12/03/23 11:33 Hct 44.2 % (36-47) 12/03/23 11:33 MCV 93.6 fl (85-98) 12/03/23 11:33 MCH 29.4 pg (27-33) 12/03/23 11: MCHC 31.4 g/dL (30-55) 12/03/23 11: RDW 13.1 % (12.1-15.1) 12/03/23 11:33 Plt Count 162 10^3/cmm (157-399) 12/03/23 11: MPV 10.2 fL (7.4-10.4) 12/03/23 11:33 Neut % (Auto) 67.7 % 12/03/23 11:33 Lymph % (Auto) 18.0 % 12/03/23 11:33 [place] % (Auto) 12.2 % 12/03/23 11:33 Eos % (Auto) 0.8 % 12/03/23 11:33 Baso % (Auto) 0.8 % 12/03/23 11:33 Neut # (Auto) 2.67 10^3/uL (1.8-7.7) 12/03/23 11:33 Lymph # (Auto) 0.7 10^3/uL (0.8-4.8) L 12/03/23 11:33 [place] # (Auto) 0.5 10^3/uL (0.2-0.9) 12/03/23 11:33 Eos # (Auto) 0.0 10^3/uL (0.0-0.8) 12/03/23 11:33 Baso # (Auto) 0.0 10^3/uL (0.0-0.1) 12/03/23 11:33 Nucleated RBC % (auto) 0 % 12/03/23 11:33 Nucleated RBCs # 0.0 /100WBC 12/03/23 11:33 Specimen Type Arterial 12/03/23 13:00 Sample Site Radial, right 12/03/23 13:00 ABG pH 7.34 (7.35-7.45) L 12/03/23 13:00 ABG pCO2 64.8 mmHg (35-45) H* 12/03/23 13:00 ABG pO2 71.4 mmHg (80.0-100.0) L 12/03/23 13:00 ABG PO2/FiO2 Ratio 0 12/03/23 13:00 ABG HCO3 34.7 mmol/L (22-26) H 12/03/23 13:00 ABG O2 Saturation 94.4 12/03/23 13:00 ABG Base Excess 6.6 mmol/L (-2.0-2.0) H 12/03/23 13:00 Glenn Test Pos 12/03/23 13:00 A-a O2 Gradient 17.8 mmHg (5-10) H 12/03/23 13:00 Hematocrit 41.6 % (37-47) 12/03/23 13:00 Hgb O2 Saturation 89.8 % (95-100) L 12/03/23 13:00 Carboxyhemoglobin 4.2 %THgb (0.4-20.1) 12/03/23 13:00 Methemoglobin 0.8 % (0.4-1.5) 12/03/23 13:00 Total Hemoglobin 13.6 g/dL (12-16) 12/03/23 13:00 Sodium 140.0 mmol/L (131-143) 12/03/23 13:00 Potassium 3.6 mmol/L (3.5-5.0) 12/03/23 13:00 Glucose 119.0 mg/dL (70-115) H 12/03/23 13:00 Ionized Calcium 1.2 mmol/L (1.1-1.4) 12/03/23 13:00 O2 Delivery Device Bipap 12/03/23 13:00 O2 Liters/Min 4.0 % 12/03/23 10:57 FiO2 40.0 % 12/03/23 13:00 [employer] Vadim 12/03/23 13:00 Sodium 136 mmol/L (136-145) 12/03/23 11:33 Potassium 4.1 mmol/L (3.5-5.1) 12/03/23 11:33 Chloride 97 mmol/L (98-107) L 12/03/23 11:33 Carbon Dioxide 28 mmol/L (22-29) 12/03/23 11:33 Anion Gap 15.1 (5-19) 12/03/23 11:33 BUN 5 mg/dL (8-23) L 12/03/23 11:33 Creatinine 0.4 mg/dL (0.5-0.9) L 12/03/23 11:33 GFR Calculation 162.8 mL/min (90-130) H 12/03/23 11:33 Glucose 125 mg/dL (65-115) H 12/03/23 11:33 Calculated Osmolality 281 mOsm/kg (285-295) L 12/03/23 11:33 Calcium 8.8 mg/dL (8.5-10.5) 12/03/23 11:33 Total Bilirubin 0.4 mg/dL (0.15-1.2) 12/03/23 11:33 AST 12 U/L (0-32) 12/03/23 11:33 ALT 11 U/L (0-33) 12/03/23 11:33 Alkaline Phosphatase 97 U/L (35-105) 12/03/23 11:33 Troponin T Baseline < 6 ng/L (0-10) 12/03/23 11:33 Troponin T 120 Minute 6.00 ng/L (0-10) 12/03/23 13:02 Delta Troponin T [id number] ABS# (0-10) 12/03/23 13:02 NT-Pro-B Natriuret Pep 88 pg/mL (0-125) 12/03/23 11:33 Total Protein 6.8 g/dL (6.6-8.7) 12/03/23 11:33 Albumin 4.0 g/dL (3.5-5.2) 12/03/23 11:33 Globulin 2.8 g/dL (1.3-4.6) 12/03/23 11:33 Procalcitonin 0.07 ng/mL (0-0.5) 12/03/23 11:33 All radiology interpretation(s) finalized by discharge Discharge Plan Discharge Patient Disposition: Placed in Observation Clinical Impression: Acute exacerbation of chronic obstructive airways disease Acute and chronic respiratory failure Qualifiers: Respiratory failure complication: hypercapnia Qualified Code(s): J96.22 - Acute and chronic respiratory failure with hypercapnia Coding Level of Care Code ED Curriculum Specialist for Parmjit Colin
[2023-12-03 11:08] LABS: ABG PH Result 7.36 (7.35-7.45); Alveolar-Arterial Oxygen Gradi 0.1 mmHg (5-10); Arterial Blood Gas Hematocrit 42.9 % (37-47); Base Excess ABG 7.1 mmol/L (-2.0-2.0); Blood Gas Allen Test Pos; Blood Gas Operator Identificat WALCI; Blood Gas Sample Site Radial, right; Blood Gas Sample Type Arterial; Carboxyhemoglobin 5.1 %THgb (0.4-20.1); HCO3 ABG 34.8 mmol/L (22-26); HGB O2 Sat 89.5 % (95-100); Ionized Calcium Level - ABG 1.3 mmol/L (1.1-1.4); Methemoglobin 0.9 % (0.4-1.5); Oxygen Device NC; Oxygen Saturation ABG 95.3; PO2 ABG 74.4 mmHg (80.0-100.0); Potassium Level - ABG 3.6 mmol/L (3.5-5.0)
[2023-12-03 11:09] LABS: ABG PCO2 61.8 mmHg (35-45)
[2023-12-03] MEDS: ipratropium-albuterol 3 mL Neb INHALATION ×2 (11:25→20:01)
[2023-12-03 11:42] LABS: Basophils % 0.8 %; Eosinophils % 0.8 %; Hematocrit 44.2 % (36-47); Lymphocytes # 0.7 10^3/uL (0.8-4.8); Mean Corpuscular HGB Conc 31.4 g/dL (30-55); Mean Corpuscular Hemoglobin 29.4 pg (27-33); Mean Corpuscular Volume 93.6 fl (85-98); Mean Platelet Volume 10.2 fL (7.4-10.4); Monocytes # 0.5 10^3/uL (0.2-0.9); Monocytes % 12.2 %; Neutrophils # 2.67 10^3/uL (1.8-7.7); Neutrophils % 67.7 %; Nucleated Red Blood Cells % 0 %; Platelet Count 162 10^3/cmm (157-399); Red Blood Count 4.72 10^6/uL (3.85-5.65); Red Cell Distribution Width 13.1 % (12.1-15.1); White Blood Count 3.94 10^3/uL (3.29-11.43)
[2023-12-03 12:00] LABS: Troponin(5th) Baseline < 6 ng/L (0-10)
[2023-12-03 12:11] LABS: Alanine Aminotransferase 11 U/L (0-33); Alkaline Phosphatase 97 U/L (35-105); Anion Gap 15.1 (5-19); Aspartate Amino Transferase 12 U/L (0-32); Blood Urea Nitrogen 5 mg/dL (8-23); Calcium 8.8 mg/dL (8.5-10.5); Carbon Dioxide 28 mmol/L (22-29); Chloride 97 mmol/L (98-107); Globulin 2.8 g/dL (1.3-4.6); Glomerular Filtration Rate 162.8 mL/min (90-130); Glucose 125 mg/dL (65-115); Osmolality Calculated 281 mOsm/kg (285-295); Potassium 4.1 mmol/L (3.5-5.1); Sodium 136 mmol/L (136-145); Total Bilirubin 0.4 mg/dL (0.15-1.2); Total Protein 6.8 g/dL (6.6-8.7)
[2023-12-03 12:55] LABS: Procalcitonin 0.07 ng/mL (0-0.5)
[2023-12-03 13:11] LABS: ABG PH Result 7.34 (7.35-7.45); Alveolar-Arterial Oxygen Gradi 17.8 mmHg (5-10); Arterial Blood Gas Hematocrit 41.6 % (37-47); Base Excess ABG 6.6 mmol/L (-2.0-2.0); Blood Gas Allen Test Pos; Blood Gas Operator Identificat WALCI; Blood Gas Sample Site Radial, right; Blood Gas Sample Type Arterial; Carboxyhemoglobin 4.2 %THgb (0.4-20.1); HCO3 ABG 34.7 mmol/L (22-26); HGB O2 Sat 89.8 % (95-100); Ionized Calcium Level - ABG 1.2 mmol/L (1.1-1.4); Methemoglobin 0.8 % (0.4-1.5); Oxygen Device BIPAP; Oxygen Saturation ABG 94.4; PO2 ABG 71.4 mmHg (80.0-100.0); PO2 FiO2 Ratio Arterial Blood 0; Potassium Level - ABG 3.6 mmol/L (3.5-5.0); Total Hemoglobin 13.6 g/dL (12-16)
[2023-12-03 13:14] LABS: ABG PCO2 64.8 mmHg (35-45)
--- NOTE | 2023-12-03 13:17 | ECG_ITS ---
[facility] Test Date: 2023-12-03 Pat Name: Tomeka Marshall Department: Room: Gender: Female Network Systems Operator: : 1965 Requested By: Susana Singh Order Number: [id number] Owusu MD: Loyd Joseph M.D. Measurements Intervals [place] Rate: 65 P: 57 [place]: 161 QRS: 83 QRSD: 89 T: 82 QT: 400 QTc: 419 Interpretive Statements SINUS RHYTHM MINIMAL ST DEPRESSION [0.025+ mV ST DEPRESSION] Compared to ECG 12/03/2023 11:31:40 ST (T wave) deviation now present Electronically Signed On 12-03-2023 16:32:30 DIRECTOR INSTITUTION by Loyd Joseph M.D. [id number]
[2023-12-03 13:26] LABS: Troponin 5 2HR Delta 0.00001 ABS# (0-10)
[2023-12-03 13:28] LABS: NT Pro B Type Natriuretic Pept 88 pg/mL (0-125)
--- NOTE | 2023-12-03 13:31 | P.HP_ITS ---
Providers/Chief Complaint 2 Admitting Physician: Naya Acuña MD Primary Care Provider: Bandar Cloud MD Chief Complaint: SOB History of Present Illness Tomeka Marshall is a 58 year old female who presented to the emergency room with chief complaint of difficulty breathing. She came in by EMS. She normally wears 3 L of oxygen by nasal cannula for her COPD. Lately she has had increased cough productive of some increased sputum and general malaise. She has had some proximal-isms of coughing. Unsure if she has had any fevers but she has not felt well. She noted that her oxygen saturations were lower and she was requiring more oxygen than usual. This prompted the visit to the ER. She has had wheezing at rest and with any exertion. No reports of runny nose or sinus congestion. No sore throat. No known sick contacts. She lives with her daughter. No complaints of chest pain, palpitations or lower extremity edema. No pleuritic type pain. She does have a history of PE and is on Eliquis for that. She does not sleep well generally. She is on CPAP at home but has been told that she needs BiPAP. She recently missed a titration study to facilitate this. The order has been reentered by Dr. Leon recently but sleep study has not yet been scheduled. Vital signs on arrival showed that she was afebrile, pulse 65, respirations mid to upper 20s and pulse oximetry 90-91% on 4 L. Blood pressures 130s over 80s. Chest x-ray showed slightly increased diffuse bilateral pulmonary edema or pneumonitis superimposed upon some scarring and unchanged cardiomegaly per radiology. Initial ABG showed 7.3 6/62/74/35 on 4 L. proBNP was normal at 88, procalcitonin was normal at 0.07, white count was not elevated. Patient was started on BiPAP and received Solu-Medrol, breathing treatment and Rocephin plus azithromycin. Given increased oxygen requirement, continued wheezing, complaints of shortness of breath request was made for admission. Review of Systems 2 General: Reports: Other (ROS as per HPI or as otherwise noted here) Const: Denies: fever(s) or change in weight Card: Reports: dyspnea on exertion; Denies: chest pain, palpitations, edema or orthopnea Resp: Reports: dyspnea, productive cough, non-productive cough, wheezing and chest congestion; Denies: stridor, pain on inspiration, change in phlegm color or hemoptysis GI: Denies: nausea, vomiting or change in bowel habits : Reports: other (been on macrobid for uti prescribed on 11/27) Musc: Reports: extremity pain (right leg/knee pain with walking, no warmth or erythema, no known injury) Memo/Lymph: Reports: other (No reports of any bleeding) Medications/Allergies Home Medications Medication Instructions Recorded Confirmed Last Taken Type apixaban 5 mg tablet (Eliquis) 5 mg PO BID 02/12/20 12/03/23 04/22/23 History albuterol sulfate 90 mcg/actuation 2 inh inhalation Q4H PRN shortness 05/28/20 12/03/23 09/04/20 Rx aerosol inhaler of breath or wheezing #18 grams montelukast 10 mg tablet 10 mg PO QAM 05/28/20 12/03/23 04/22/23 History gabapentin 300 mg capsule 300 mg PO TID 08/25/21 12/03/23 04/22/23 History acetaminophen 500 mg tablet 1,000 - 1,500 mg PO Q6H PRN Pain 10/03/21 12/03/23 Unknown History CPAP Machine/Supplies #1 ea 07/11/22 12/03/23 Unknown Rx CPAP w/Humidifier, Headgear #1 ea 07/11/22 12/03/23 Unknown Rx cam boot #1 ea 08/14/22 12/03/23 Unknown Rx duloxetine 60 mg capsule,delayed 120 mg (2 x 60 mg) PO QAM #60 caps 01/24/23 12/03/23 04/22/23 Rx release (Cymbalta) quetiapine 150 mg tablet,extended 150 mg PO BEDTIME #30 tabs 01/24/23 12/03/23 04/21/23 Rx release 24 hr azelastine 137 mcg (0.1 %) nasal 2 spray intranasal BID 04/19/23 12/03/23 04/22/23 History spray aerosol levothyroxine 88 mcg tablet 88 mcg PO QAM 04/19/23 12/03/23 04/22/23 History valsartan 80 mg tablet 80 mg PO QAM 06/30/23 02/13/24 07/03/23 History aspirin 81 mg tablet,delayed 81 mg PO QAM 07/01/23 12/03/23 Unknown History release ipratropium 0.5 mg-albuterol 3 mg 3 ml inhalation QID 07/01/23 12/03/23 Unknown History (2.5 mg base)/3 mL nebulization soln omeprazole 20 mg capsule,delayed 40 mg PO QAM 07/01/23 12/03/23 Unknown History release trazodone 50 mg tablet 100 mg PO BEDTIME 10/07/23 12/03/23 12/02/23 History oxybutynin chloride 5 mg 5 mg PO DAILY #30 tabs 11/21/23 12/03/23 Unknown Rx tablet,extended release 24 hr nitrofurantoin 100 mg PO BID 12/03/23 12/03/23 Unknown History monohydrate/macrocrystals 100 mg capsule varenicline 1 mg tablet 1 mg PO BID 12/03/23 12/03/23 Unknown History Allergies Allergy/AdvReac Type Severity Reaction Status Date / Time levofloxacin [From Levaquin] Allergy Intermediate ADR-Abdominal Verified 12/03/23 10:40 Pain Sulfa (Sulfonamide Allergy Intermediate ADR-Blurry Verified 12/03/23 10:40 Antibiotics) Vision nitrofurantoin Allergy Unknown Verified 12/03/23 10:40 PFSH Acute 2 PFSH: Medical History (Updated 12/03/23 @ 19:42 by Naya Acuña MD) Hypertension Hypothyroidism Left upper lobe pulmonary nodule Fracture of fifth metatarsal bone of right foot Mixed urinary incontinence due to female genital prolapse POP-Q stage 3 cystocele POP-Q stage 2 rectocele Chronic respiratory failure with hypoxia and hypercapnia Fracture of distal end of right fibula Obstructive sleep apnea hypopnea, severe Narcolepsy with cataplexy Non-insulin dependent type 2 diabetes mellitus Pneumonia COPD (chronic obstructive pulmonary disease) Chronic COPD. Chronic smoking. She is aware of the risks of cigarette smoking with COPD. Tobacco use disorder, continuous Chronic post-traumatic stress disorder (PTSD) Bipolar 2 disorder Ovarian cyst Insomnia Bilateral pulmonary embolism -on AC with Eliquis Hepatitis C virus infection cured after antiviral drug therapy Anxiety and depression Spinal stenosis GERD (gastroesophageal reflux disease) Chronic pain Obstructive sleep apnea home cpap but needs bipap Hyperlipidemia Surgical History (Updated 12/03/23 @ 13:31 by Naya Acuña MD) H/O tubal ligation History of colonoscopy 2019 History of elbow surgery left-2017 Status post left foot surgery H/O section Family History Mother Cancer Breast cancer Diabetes Social History Smoking and tobacco/nicotine status: never used tobacco/nicotine Quit status (tobacco/nicotine): considering quitting Second hand smoke exposure: No Alcohol intake: never Substance/Drug Use: never Household members: children Current occupational status: unemployed Vitals/I&O/Wt Last Vital Signs Temp 98.3 F 12/03/23 10:40 Pulse 72 12/03/23 11:22 Resp 28 H 12/03/23 11:21 BP 139/96 12/03/23 10:40 Pulse Ox 94 12/03/23 11:22 O2 Del Method BiPAP 12/03/23 11:21 O2 Flow Rate 4 12/03/23 10:40 FiO2 40 12/03/23 11:22 Weight last 48 hrs Weight 106.594 kg Physical Exam 2 Narrative: Patient is resting with her eyes closed, easily arousable. On BiPAP. Able to answer questions and follow commands. Extraocular movements are intact. Dry oral mucosa. No posterior pharyngeal drainage is noted. Neck is large but supple. Lungs are remarkable for inspiratory and expiratory wheezes bilaterally. Cardiovascular exam reveals a regular rate and rhythm. Abdomen is soft, nontender. Extremities no pitting edema. Both knees palpated. Similar size. No warmth, erythema, areas of point tenderness. Not ballotable. Range of motion is similar bilaterally. Has a scratch on the right knee a couple of millimeters. Data 12/03/23 11:33 12/03/23 11:33 Other Labs: Radiology Impressions Chest X-Ray 12/03/23 10:57 IMPRESSION: 1. Slightly increased diffuse bilateral pulmonary edema and/or pneumonitis which may be superimposed upon some scarring. 2. Unchanged mild cardiomegaly. Laboratory Results WBC 3.94 10^3/uL (3.29-11.43) 12/03/23 11:33 RBC 4.72 10^6/uL (3.85-5.65) 12/03/23 11:33 Hgb 13.90 g/dL (11.27-16.99) 12/03/23 11:33 Hct 44.2 % (36-47) 12/03/23 11:33 MCV 93.6 fl (85-98) 12/03/23 11:33 MCH 29.4 pg (27-33) 12/03/23 11: MCHC 31.4 g/dL (30-55) 12/03/23 11: RDW 13.1 % (12.1-15.1) 12/03/23 11:33 Plt Count 162 10^3/cmm (157-399) 12/03/23 11: MPV 10.2 fL (7.4-10.4) 12/03/23 11:33 Neut % (Auto) 67.7 % 12/03/23 11: Lymph % (Auto) 18.0 % 12/03/23 11:33 Slope % (Auto) 12.2 % 12/03/23 11:33 Eos % (Auto) 0.8 % 12/03/23 11: Baso % (Auto) 0.8 % 12/03/23 11:33 Neut # (Auto) 2.67 10^3/uL (1.8-7.7) 12/03/23 11:33 Lymph # (Auto) 0.7 10^3/uL (0.8-4.8) L 12/03/23 11:33 Slope # (Auto) 0.5 10^3/uL (0.2-0.9) 12/03/23 11:33 Eos # (Auto) 0.0 10^3/uL (0.0-0.8) 12/03/23 11:33 Baso # (Auto) 0.0 10^3/uL (0.0-0.1) 12/03/23 11:33 Nucleated RBC % (auto) 0 % 12/03/23 11: Nucleated RBCs # 0.0 /100WBC 12/03/23 11:33 Specimen Type Arterial 12/03/23 13:00 Sample Site Radial, right 12/03/23 13:00 ABG pH 7.34 (7.35-7.45) L 12/03/23 13:00 ABG pCO2 64.8 mmHg (35-45) H* 12/03/23 13:00 ABG pO2 71.4 mmHg (80.0-100.0) L 12/03/23 13:00 ABG PO2/FiO2 Ratio 0 12/03/23 13:00 ABG HCO3 34.7 mmol/L (22-26) H 12/03/23 13:00 ABG O2 Saturation 94.4 12/03/23 13:00 ABG Base Excess 6.6 mmol/L (-2.0-2.0) H 12/03/23 13:00 Glenn Test Pos 12/03/23 13:00 A-a O2 Gradient 17.8 mmHg (5-10) H 12/03/23 13:00 Hematocrit 41.6 % (37-47) 12/03/23 13:00 Hgb O2 Saturation 89.8 % (95-100) L 12/03/23 13:00 Carboxyhemoglobin 4.2 %THgb (0.4-20.1) 12/03/23 13:00 Methemoglobin 0.8 % (0.4-1.5) 12/03/23 13:00 Total Hemoglobin 13.6 g/dL (12-16) 12/03/23 13:00 Sodium 140.0 mmol/L (131-143) 12/03/23 13:00 Potassium 3.6 mmol/L (3.5-5.0) 12/03/23 13:00 Glucose 119.0 mg/dL (70-115) H 12/03/23 13:00 Ionized Calcium 1.2 mmol/L (1.1-1.4) 12/03/23 13:00 O2 Delivery Device Bipap 12/03/23 13:00 O2 Liters/Min 4.0 % 12/03/23 10:57 FiO2 40.0 % 12/03/23 13:00 Payroll Accountant ID [employer] 12/03/23 13:00 Sodium 136 mmol/L (136-145) 12/03/23 11:33 Potassium 4.1 mmol/L (3.5-5.1) 12/03/23 11:33 Chloride 97 mmol/L (98-107) L 12/03/23 11:33 Carbon Dioxide 28 mmol/L (22-29) 12/03/23 11:33 Anion Gap 15.1 (5-19) 12/03/23 11:33 BUN 5 mg/dL (8-23) L 12/03/23 11:33 Creatinine 0.4 mg/dL (0.5-0.9) L 12/03/23 11:33 GFR Calculation 162.8 mL/min (90-130) H 12/03/23 11:33 Glucose 125 mg/dL (65-115) H 12/03/23 11:33 Calculated Osmolality 281 mOsm/kg (285-295) L 12/03/23 11:33 Calcium 8.8 mg/dL (8.5-10.5) 12/03/23 11:33 Total Bilirubin 0.4 mg/dL (0.15-1.2) 12/03/23 11:33 AST 12 U/L (0-32) 12/03/23 11:33 ALT 11 U/L (0-33) 12/03/23 11:33 Alkaline Phosphatase 97 U/L (35-105) 12/03/23 11:33 Troponin T Baseline < 6 ng/L (0-10) 12/03/23 11:33 Troponin T 120 Minute 6.00 ng/L (0-10) 12/03/23 13:02 Delta Troponin T 0.91903 ABS# (0-10) 12/03/23 13:02 NT-Pro-B Natriuret Pep 88 pg/mL (0-125) 12/03/23 11:33 Total Protein 6.8 g/dL (6.6-8.7) 12/03/23 11:33 Albumin 4.0 g/dL (3.5-5.2) 12/03/23 11:33 Globulin 2.8 g/dL (1.3-4.6) 12/03/23 11:33 Procalcitonin 0.07 ng/mL (0-0.5) 12/03/23 11:33 Micro: Microbiology 12/03/23 11:33 Blood Culture - Preliminary Blood SPECIMEN COLLECTED 12/03/23 11:46 Blood Culture - Preliminary Blood SPECIMEN COLLECTED Other data: SLEEP STUDY 07/22/2017 1. CPAP titration found the optimal pressure setting to be 15 cm, however, hypoxemia persisted. 2. Elevated periodic limb movement index with a normal PLM-arousal index. ? 3. No arrhythmias were recorded. 4. Abnormal sleep architecture related to first night effect, CPAP titration, and medications. Recommendation: 1. BIPAP titration. (NOTE: The patient awoke at 4 am and demanded to smoke a cigarette. MSLT was canceled due to this, although would have been invalid anyway due to inadequate titration results.) 2. Patient should be advised not to drive or operate hazardous machinery until the sleep disorder breathing is treated and sleepiness has resolved. ECHO 01/2021 1-Normal left ventricular cavity size. Normal left ventricular systolic function. No regional wall motion abnormalities. Left ventricular ejection fraction is estimated at 68 %. Grade I/IV diastolic dysfunction (abnormal relaxation filling pattern), normal to mildly elevated filling pressures. 2-No significant valve abnormalities. 3-There is no pericardial effusion. 4-Pulmonary artery systolic pressure is within normal limits. 5-Right atrial pressure is around 5 mm of mercury. PFTs 06/2017 Spirometry indicates a combined obstructive and restrictive ventilatory defect. The overall impairment in lung mechanics is severe. There is a significant bronchodilator response. The diffusing capacity is normal. Clinical correlation is recommended. A&P Assessment and plan (1) Acute exacerbation of chronic obstructive airways disease: In a patient with chronic respiratory failure with hypoxemia and hypercapnia. Currently requiring a little bit more oxygen than baseline and feels more short of breath than baseline, coughing a lot more with increased sputum production. Hypercapnic on initial ABG but I suspect that she has had progressive worsening of baseline respiratory function over time given compensation. Exacerbation secondary to #2 as well. 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 (2) Viral respiratory illness: Coronavirus 229e positive (3) Obstructive sleep apnea: Has home CPAP. BiPAP titration study has been recommended but she has not kept that appointment. That sleep study has been reordered recently but is not yet scheduled. (4) Chronic anticoagulation: Due to a history of previous pulmonary embolism, on chronic anticoagulation with Eliquis. Reports compliance with medication and external records do indicate that it was filled at the end of October. No pleuritic or other chest pain nor hemoptysis. (5) Hypertension: Chronically on valsartan Qualifiers: Hypertension type: primary hypertension Qualified Code(s): I10 - Essential (primary) hypertension (6) Hypothyroidism: Chronically on levothyroxine Qualifiers: Hypothyroidism type: acquired Qualified Code(s): E03.9 - Hypothyroidism, unspecified (7) Narcolepsy with cataplexy: Follows with Dr. Leon, not on stimulant therapy (8) Mixed urinary incontinence due to female genital prolapse: Recently identified, oxybutynin started November 21. Is complaining of a dry mouth but that could also impart be from CPAP/BiPAP therapy. Cough associated with oxybutynin can be considered if patient's symptoms do not improve with usual treatment for respiratory exacerbations. (9) Chronic pain: Chronic pain documented in medical record. Currently complaining of pain in her right knee. She has a very superficial scratch on her right knee. Bony hypertrophy is noted of both knees with some mild crepitus. Appears to be likely chronic arthritic pain. Chronically takes gabapentin and as needed Tylenol. (10) BMI 37.0-37.9, adult: May be an element of obesity hypoventilation contributing (11) Tobacco use disorder, continuous: Continues to smoke about a pack a day. Has recently been prescribed Chantix but it does not appear that it has helped her cut back much yet. (12) History of psychiatric care: History of PTSD, anxiety, depression, bipolar 2 for which patient is on duloxetine quetiapine and trazodone. Plan Recent urinary tract infection treated with nitrofurantoin, patient is now reporting allergy to this medication and has not completed course prescribed Allergies on azelastine and Singulair Chronically on PPI Elevated blood sugar, may be related to steroids, patient denies history of diabetes, last A1c in 2020 5.5 Observation admission Scheduled and as needed breathing treatments Continue steroids with prednisone Add inhaled steroids Wean oxygen back to baseline as able Flutter device Have not continued antibiotics though she did receive empiric Rocephin and azithromycin in the emergency room BiPAP with sleep Has an order for repeat sleep study for BiPAP titration already placed by Dr. Leon though not yet scheduled Patient is close to meeting criteria for home BiPAP with presenting ABG, utilization of CPAP at home, though the acute illness may preclude that being able to be arranged, will see if case management can look into Will continue home Singulair Continue home Eliquis Continue home valsartan Continue home levothyroxine Continue home oxybutynin Continue home gabapentin along with Tylenol for pain control Monitor right knee for worsening Discussed with patient that we do not have Chantix on formulary in the hospital Continuing home duloxetine, quetiapine and trazodone Check urinalysis Sliding scale insulin if needed for hyperglycemia given steroid administration VTE prophylaxis: Eliquis GI Prophylaxis: Continue home PPI Antibiotics: Status post a dose of Rocephin and azithromycin in the emergency room empirically Pending studies: Urinalysis not yet collected, blood cultures Telemetry: ordered currently secondary to respiratory illness, history of PE and current need for Bipap [place]: not currently indicated Line(s): peripheral IVs Disposition plan: Home with outpatient follow up to primary care provider Dr Cloud, likely with steroids course. Has order for repeat sleep study to get bipap titration though not yet scheduled Code Status: Full code Supportive care otherwise Findings, concerns and plans were discussed with patient and she was given an opportunity to ask questions Attestations 2 Medical Necessity Statement*: Currently anticipate a stay less than two midnights in patient with known severe obstructive and restrictive pulmonary disease presenting with increased cough, shortness of breath and increased oxygen requirement. She has been found to have coronavirus 229 E+ on respiratory panel. No evidence of pneumonia. Clinically does not look volume overloaded. Has a history of PE but is on chronic Eliquis and reports compliance with medication. Receiving steroids, breathing treatments and currently on BiPAP with close monitoring for worsening symptoms. Diagnoses Acute exacerbation of chronic obstructive airways disease J44.1 Viral respiratory illness J98.8; B97.89 Obstructive sleep apnea G47.33 Chronic anticoagulation Z79.01 Primary hypertension I10 Hypertension type: primary hypertension Acquired hypothyroidism E03.9 Hypothyroidism type: acquired Narcolepsy with cataplexy G47.411 Mixed urinary incontinence due to female genital prolapse N39.46; N81.9 Chronic pain G89.29 BMI 37.0-37.9, adult Z68.37 Tobacco use disorder, continuous F17.209 History of psychiatric care Z92.89
[2023-12-03 13:46] LABS: Adenovirus Not Detected (NOT DETECT); Chlamydia Pneumoniae Not Detected (NOT DETECT); Coronavirus 229E,HKU1,NL63,OC4 Detected (NOT DETECT); Human Metapneumovirus Not Detected (NOT DETECT); Human Rhinovirus/Enterovirus Not Detected (NOT DETECT); Influenza A Not Detected (NOT DETECT); Influenza A H1 Not Detected (NOT DETECT); Influenza A H1-2009 Not Detected (NOT DETECT); Influenza A H3 Not Detected (NOT DETECT); Influenza B Not Detected (NOT DETECT); Mycoplasma Pneumoniae Not Detected (NOT DETECT); Parainfluenza Virus Type 1 Not Detected (NOT DETECT); Parainfluenza Virus Type 2 Not Detected (NOT DETECT); Parainfluenza Virus Type 3 Not Detected (NOT DETECT); Parainfluenza Virus Type 4 Not Detected (NOT DETECT); Respiratory Syncytial Virus A Not Detected (NOT DETECT); Respiratory Syncytial Virus B Not Detected (NOT DETECT); SARS-COV-2 Not Detected (NOT DETECT)
[2023-12-03] MEDS: cefTRIAXone 1,000 MG in sodium chloride 0.9% (plus) 50 ML 100 MG IV (13:56)
[2023-12-03] MEDS: azithromycin 500 MG in sodium chloride 0.9% 250 ML 250 MG IV (14:26)
[2023-12-03] MEDS: methylPREDNISolone sod succ 125 mg/2 mL INJ IVP (14:51)
[2023-12-03 18:20] LABS: Glucose Point of Care 130 mg/dL (70-110)
--- NOTE | 2023-12-03 18:31 | PC.NURSE ---
Medication Refusal: Pt denied being diabetic or taking medication for diabetes. Pt stated, I am not diabetic and I will not take insulin. When this nurse attempted to give pt home medication of Eliquis, pt refused. Dr. Acuña notified and aware.
--- NOTE | 2023-12-03 18:33 | PC.NURSE ---
Telemetry Refusal: Pt refused to wear telemetry.
[2023-12-03 18:38] LABS: Troponin 5 6HR Delta 0.00001 ng/L (0-12)
[2023-12-03] MEDS: budesonide 0.5 mg/2 mL Neb INHALATION (20:01)
[2023-12-03 21:34] LABS: Glucose Point of Care 178 mg/dL (70-110)
[2023-12-03] MEDS: insulin lispro 100 unit/1 mL SUBCUT (22:05)
[2023-12-03] MEDS: gabapentin 300 mg Capsule PO (22:06)
[2023-12-03] MEDS: quetiapine 300 mg Tablet 150 MG PO (22:06)
[2023-12-03] MEDS: trazodone 100 mg Tablet PO (22:06)
[2023-12-04] VITALS (14 sets, daily range): BP systolic 105–140; BP diastolic 67–81; PULSE 53–86; RESP 16–28; TEMP 36.3–37.1; O2SAT 90–98
[2023-12-04] MEDS: losartan 50 mg Tablet 25 MG PO (05:46)
[2023-12-04] MEDS: aspirin 81 mg EC Tablet PO (05:46)
[2023-12-04] MEDS: levothyroxine 88 mcg Tablet PO (05:46)
[2023-12-04] MEDS: duloxetine 60 mg Capsule 120 MG PO (05:46)
[2023-12-04] MEDS: montelukast sodium 10 mg Tablet PO (05:46)
[2023-12-04 05:59] LABS: Basophils % 0.5 %; Hematocrit 42.6 % (36-47); Lymphocytes # 0.8 10^3/uL (0.8-4.8); Lymphocytes % 18.3 %; Mean Corpuscular HGB Conc 30.8 g/dL (30-55); Mean Corpuscular Hemoglobin 29.3 pg (27-33); Mean Corpuscular Volume 95.3 fl (85-98); Mean Platelet Volume 10.1 fL (7.4-10.4); Monocytes # 0.5 10^3/uL (0.2-0.9); Monocytes % 10.6 %; Neutrophils # 3.11 10^3/uL (1.8-7.7); Neutrophils % 70.4 %; Nucleated Red Blood Cells % 0 %; Platelet Count 174 10^3/cmm (157-399); Red Blood Count 4.47 10^6/uL (3.85-5.65); Red Cell Distribution Width 13.2 % (12.1-15.1); White Blood Count 4.42 10^3/uL (3.29-11.43)
[2023-12-04 06:06] LABS: INR 0.96 (0.8-1.2)
[2023-12-04 06:07] LABS: Partial Thromboplastin Time 24.1 SECONDS (23.9-36.7)
[2023-12-04 06:17] LABS: Anion Gap 10.2 (5-19); Blood Urea Nitrogen 8 mg/dL (8-23); Calcium 8.8 mg/dL (8.5-10.5); Carbon Dioxide 33 mmol/L (22-29); Chloride 99 mmol/L (98-107); Glomerular Filtration Rate 125.9 mL/min (90-130); Glucose 106 mg/dL (65-115); Magnesium 1.9 mg/dL (1.7-2.3); Osmolality Calculated 285 mOsm/kg (285-295); Potassium 4.2 mmol/L (3.5-5.1); Sodium 138 mmol/L (136-145)
[2023-12-04 06:34] LABS: Glucose Point of Care 96 mg/dL (70-110)
[2023-12-04] MEDS: budesonide 0.5 mg/2 mL Neb INHALATION ×2 (07:20→20:26)
[2023-12-04] MEDS: ipratropium-albuterol 3 mL Neb INHALATION ×4 (07:20→23:01)
[2023-12-04] MEDS: pantoprazole DR 40 mg Tablet PO (07:38)
[2023-12-04] MEDS: gabapentin 300 mg Capsule PO ×3 (07:38→21:26)
[2023-12-04] MEDS: predniSONE 20 mg Tablet 40 MG PO (07:39)
[2023-12-04] MEDS: apixaban 5 mg Tablet PO ×2 (07:39→17:30)
[2023-12-04] MEDS: oxybutynin chloride XL 5 MG TABLET PO (07:39)
--- NOTE | 2023-12-04 08:41 | P.PN_ITS ---
Documented by User: IAN Maciel STDSARY 12/04/23 09:25 Subjective 2 Subjective: Tomeka hernandez is a 58-year-old female who presents hospital with COPD exacerbation 12/03/2023. Today patient is awake and oriented, stable on BiPAP, has cough minimally productive of sputum. She reports belly pain with coughing. No other pain reported. No syncope or presyncope, no vomiting or other symptoms reported. Vitals/I&O/Wt Last Vital Signs Temp 98 F 12/04/23 04:00 Pulse 86 12/04/23 07:21 Resp 27 H 12/04/23 07:21 BP 126/67 12/04/23 05:46 Pulse Ox 96 12/04/23 07:21 O2 Del Method BiPAP 12/04/23 07:21 O2 Flow Rate 4 12/03/23 10:40 FiO2 40 12/04/23 07:21 12/03/23 12/04/23 12/04/23 22:59 06:59 14:59 Intake Total 250 / 300 240 / 540 Balance 250 / 300 240 / 540 Weight last 48 hrs Weight 233 lb Weight 232 lb 4.8 oz Weight 235 lb Physical Exam 2 Narrative: General alert and oriented to person place time and situation pleasant HEENT normocephalic atraumatic EOMI PERRL Cardiac heart sounds difficult to auscultate due to body habitus and lung sounds with BiPAP, no edema, regular pulses 2+ upper and lower extremity Pulmonary, tachypneic significant expiratory wheezes throughout, mild inspiratory wheeze and crackles in bilateral bases patient on BiPAP 4 L O2 FiO2 40 Abdomen obese, no organomegaly appreciated, bowel sounds normal, nontender, pain reported in left lower quadrant with coughing not present with palpation, no superficial defect deferred Extremities no edema, capillary refill brisk, normal movement and sensation Neuro no focal deficit Psych normal mood and affect Data 12/04/23 05:47 12/04/23 05:47 Other Labs: Virus PCR panel positive for coronavirus 229E, all other viruses negative Mild respiratory acidosis with metabolic alkalosis compensation on ABG with hypercapnia, and mild hypoxia, pH 7.34, pCO2 64.8, bicarb 34.7, pO2 71.4, base excess 6.6 Micro: Microbiology 12/03/23 11:33 Blood Culture - Preliminary Blood SPECIMEN COLLECTED 12/03/23 11:46 Blood Culture - Preliminary Blood SPECIMEN COLLECTED Virus panel positive for coronavirus 229 E All other viruses negative A&P Assessment and plan (1) Acute exacerbation of chronic obstructive airways disease: chronic respiratory failure with hypoxemia and hypercapnia, likely secondary to viral URI coronavirus 229 E positive. 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 Continue BiPAP 4 L O2 FiO2 40, currently O2 saturation on pulse ox 96 Continue DuoNeb scheduled every 4 hours Continue prednisone 40 mg p.o. daily Continue budesonide 0.5 mg twice daily Continue montelukast 10 mg p.o. every morning (2) Viral respiratory illness: Coronavirus 229e positive Continue treatment for COPD exacerbation as above (3) Obstructive sleep apnea: Has home CPAP. BiPAP titration study has been recommended but she has not kept that appointment. That sleep study has been reordered recently for bipap titration by Dr. Leon, but is not yet scheduled. (4) Chronic anticoagulation: Chronic anticoagulation with Eliquis for previous pulmonary embolism, patient compliant with medication No pleuritic or other chest pain nor hemoptysis. Continue 5 mg Eliquis p.o. twice daily Continue aspirin 81 mg p.o. every morning (5) Hypertension: Continue losartan potassium 25 mg p.o. daily Qualifiers: Hypertension type: primary hypertension Qualified Code(s): I10 - Essential (primary) hypertension (6) Hypothyroidism: Chronically on levothyroxine 88mcg PO daily Qualifiers: Hypothyroidism type: acquired Qualified Code(s): E03.9 - Hypothyroidism, unspecified (7) Narcolepsy with cataplexy: Follows with Dr. Leon, not on stimulant therapy (8) Mixed urinary incontinence due to female genital prolapse: Recently identified, oxybutynin started November 21. Is complaining of a dry mouth but that could also impart be from CPAP/BiPAP therapy. Cough associated with oxybutynin can be considered if patient's symptoms do not improve with usual treatment for respiratory exacerbations. (9) Chronic pain: Chronic pain documented in medical record. Appears to be likely chronic arthritic pain, particularly in R knee Continue gabapentin 300mg PO TID and as needed Tylenol. (10) BMI 37.0-37.9, adult: May be an element of obesity hypoventilation contributing (11) Tobacco use disorder, continuous: Continues to smoke about a pack a day. Has recently been prescribed Chantix but it does not appear that it has helped her cut back much yet. (12) History of psychiatric care: History of PTSD, anxiety, depression, bipolar 2 continue duloxetine 120mg PO qam continue quetiapine 150mg PO bedtime continue trazodone 100mg PO bedtime Plan Recent urinary tract infection treated with nitrofurantoin, patient is now reporting allergy to this medication and has not completed course prescribed Allergies on azelastine and Singulair Elevated blood sugar, may be related to steroids, patient denies history of diabetes, last A1c in 2019 5.5 Wean oxygen back to baseline as able Flutter device Patient is close to meeting criteria for home BiPAP with presenting ABG, utilization of CPAP at home, though the acute illness may preclude that being able to be arranged, will see if case management can look into Discussed with patient that we do not have Chantix on formulary in the hospital Sliding scale insulin if needed for hyperglycemia given steroid administration VTE prophylaxis: Eliquis GI Prophylaxis: Continue home PPI Antibiotics: Status post a dose of Rocephin and azithromycin in the emergency room empirically Pending studies: Urinalysis not yet collected, blood cultures Telemetry: ordered currently secondary to respiratory illness, history of PE and current need for Bipap [place]: not currently indicated Line(s): peripheral IVs Disposition plan: Home with outpatient follow up to primary care provider Dr Cloud, likely with steroids course. Has order for repeat sleep study to get bipap titration though not yet scheduled Code Status: Full code Supportive care otherwise Findings, concerns and plans were discussed with patient and she was given an opportunity to ask questions Coding Level of Care Code 29849 Diagnoses Acute exacerbation of chronic obstructive airways disease J44.1 Viral respiratory illness J98.8; B97.89 Obstructive sleep apnea G47.33 Chronic anticoagulation Z79.01 Primary hypertension I10 Hypertension type: primary hypertension Acquired hypothyroidism E03.9 Hypothyroidism type: acquired Narcolepsy with cataplexy G47.411 Mixed urinary incontinence due to female genital prolapse N39.46; N81.9 Chronic pain G89.29 BMI 37.0-37.9, adult Z68.37 Tobacco use disorder, continuous F17.209 History of psychiatric care Z92.89 Time Spent (min) 24 Documented by User: Hair Oropeza MD 12/04/23 09:42 Subjective 2 Subjective: Tomeka hernandez is a 58-year-old female who presents hospital with COPD exacerbation 12/03/2023. Has cough minimally productive of sputum. She reports belly pain with coughing. No other pain reported. No syncope or presyncope, no vomiting or other symptoms reported. Patient reports to me that her breathing is still significantly giving her trouble. She is not for sure if she has better than when she came in. I discussed with her that I would Dr. Miguel had backend, when she was off BiPAP. Medications: Reviewed: Yes Physical Exam 2 Narrative: General: Today patient is awake and oriented, stable on BiPAP HEENT normocephalic atraumatic EOMI PERRL Cardiac heart sounds difficult to auscultate due to body habitus and lung sounds with BiPAP, no edema, regular pulses 2+ upper and lower extremity Pulmonary, tachypneic significant expiratory wheezes throughout, mild inspiratory wheeze and crackles in bilateral bases patient on BiPAP FiO2 40 Abdomen obese, no organomegaly appreciated, bowel sounds normal, nontender, pain reported in left lower quadrant with coughing not present with palpation, no superficial defect deferred Extremities no edema, capillary refill brisk, normal movement and sensation Neuro no focal deficit Psych normal mood and affect Data 12/04/23 05:47 12/04/23 05:47 A&P Assessment and plan (1) Acute exacerbation of chronic obstructive airways disease: Acute on chronic respiratory failure with hypoxemia and hypercapnia, likely secondary to viral URI coronavirus 229 E positive. 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 Wean BiPAP as tolerated. She has CPAP at home she sleeps with. There is concern of her failing CPAP secondary to this admission. Will see if she qualifies for BiPAP secondary to her CO2 retention, low pH, failing CPAP. Will obtain an overnight oximetry to try to facilitate this. Continue DuoNeb, changed to scheduled every 4 hours Continue prednisone 40 mg p.o. daily Continue budesonide 0.5 mg twice daily Continue montelukast 10 mg p.o. every morning Note that she uses approximately 3 L of oxygen chronically. CBC, BMP tomorrow Add doxycycline p.o. (2) Viral respiratory illness: (3) Obstructive sleep apnea: Has home CPAP. BiPAP titration study has been recommended but she has not kept that appointment. That sleep study has been reordered recently for bipap titration by Dr. Leon, but is not yet scheduled. (4) Chronic anticoagulation: (5) Hypertension: Continue losartan 25 mg p.o. daily Qualifiers: Hypertension type: primary hypertension Qualified Code(s): I10 - Essential (primary) hypertension (6) Hypothyroidism: Qualifiers: Hypothyroidism type: acquired Qualified Code(s): E03.9 - Hypothyroidism, unspecified (7) Narcolepsy with cataplexy: (8) Mixed urinary incontinence due to female genital prolapse: (9) Chronic pain: (10) BMI 37.0-37.9, adult: (11) Tobacco use disorder, continuous: Continues to smoke about a pack a day. Has recently been prescribed Chantix but it does not appear that it has helped her cut back much yet. Offered nicotine patch, which she refused (12) History of psychiatric care: Plan Recent urinary tract infection treated with nitrofurantoin, patient is now reporting allergy to this medication and has not completed course prescribed. This has been discontinued. Urinalysis ordered on admission has not yet been obtained. Will try to obtain this today. Elevated blood sugar, may be related to steroids, patient denies history of diabetes, last A1c in 2020 5.5 Sliding scale insulin if needed for hyperglycemia given steroid administration Full code Eliquis will suffice for DVT prophylaxis Attestations 2 Medical Necessity Statement*: Needs continued hospitalization, for frequent breathing treatments which are moved to every 4 hours, continue prednisone, weaning off BiPAP, evaluating whether BiPAP can be initiated on discharge. Diagnoses Acute exacerbation of chronic obstructive airways disease J44.1 Viral respiratory illness J98.8; B97.89 Obstructive sleep apnea G47.33 Chronic anticoagulation Z79.01 Primary hypertension I10 Hypertension type: primary hypertension Acquired hypothyroidism E03.9 Hypothyroidism type: acquired Narcolepsy with cataplexy G47.411 Mixed urinary incontinence due to female genital prolapse N39.46; N81.9 Chronic pain G89.29 BMI 37.0-37.9, adult Z68.37 Tobacco use disorder, continuous F17.209 History of psychiatric care Z92.89 Time Spent (min) 24
[2023-12-04 12:04] LABS: Glucose Point of Care 148 mg/dL (70-110)
[2023-12-04] MEDS: insulin lispro 100 unit/1 mL SUBCUT (12:38)
[2023-12-04 15:08] LABS: Add Urine Microscopic? NO; Charge for UA Resulting for Rev
[2023-12-04 15:19] LABS: Bilirubin Urine Neg (Negative); Blood Urine Neg (Negative); Glucose Urine UA Norm (Normal); Ketones Urine Negative (Negative); Leukocyte Esterase Urine Negative (Negative); Nitrate Urine Negative (Negative); Protein Urine Neg (Negative); Urine Appearance Clear (CLEAR); Urine Color Yellow (Yellow); Urobilinogen Urine Norm (Negative); pH Urine 6 (5-7)
[2023-12-04 16:57] LABS: Glucose Point of Care 125 mg/dL (70-110)
[2023-12-04] MEDS: doxycycline 100 mg Tablet PO (17:30)
[2023-12-04 21:07] LABS: Glucose Point of Care 111 mg/dL (70-110)
[2023-12-04] MEDS: quetiapine 300 mg Tablet 150 MG PO (21:26)
[2023-12-04] MEDS: trazodone 100 mg Tablet PO (21:26)
[2023-12-05] VITALS (8 sets, daily range): BP systolic 130–143; BP diastolic 81–83; PULSE 56–79; RESP 18–25; TEMP 36.5–36.8; O2SAT 91–95
[2023-12-05] MEDS: ipratropium-albuterol 3 mL Neb INHALATION ×2 (03:27→07:32)
[2023-12-05 05:46] LABS: Basophils % 0.6 %; Eosinophils % 0.6 %; Hematocrit 40.4 % (36-47); Lymphocytes # 1.3 10^3/uL (0.8-4.8); Lymphocytes % 36.1 %; Mean Corpuscular HGB Conc 32.2 g/dL (30-55); Mean Corpuscular Hemoglobin 30.2 pg (27-33); Mean Platelet Volume 10.2 fL (7.4-10.4); Monocytes # 0.5 10^3/uL (0.2-0.9); Neutrophils # 1.71 10^3/uL (1.8-7.7); Neutrophils % 49.4 %; Nucleated Red Blood Cells % 0 %; Platelet Count 151 10^3/cmm (157-399); Red Cell Distribution Width 13.2 % (12.1-15.1); White Blood Count 3.46 10^3/uL (3.29-11.43)
[2023-12-05] MEDS: montelukast sodium 10 mg Tablet PO (06:01)
[2023-12-05] MEDS: duloxetine 60 mg Capsule 120 MG PO (06:01)
[2023-12-05] MEDS: aspirin 81 mg EC Tablet PO (06:01)
[2023-12-05] MEDS: losartan 50 mg Tablet 25 MG PO (06:01)
[2023-12-05] MEDS: levothyroxine 88 mcg Tablet PO (06:01)
[2023-12-05 06:04] LABS: Anion Gap 9.7 (5-19); Blood Urea Nitrogen 11 mg/dL (8-23); Calcium 8.6 mg/dL (8.5-10.5); Carbon Dioxide 35 mmol/L (22-29); Chloride 97 mmol/L (98-107); Glomerular Filtration Rate 125.9 mL/min (90-130); Glucose 96 mg/dL (65-115); Osmolality Calculated 285 mOsm/kg (285-295); Potassium 3.7 mmol/L (3.5-5.1); Sodium 138 mmol/L (136-145)
[2023-12-05 06:39] LABS: Glucose Point of Care 122 mg/dL (70-110)
[2023-12-05] MEDS: budesonide 0.5 mg/2 mL Neb INHALATION (07:32)
[2023-12-05] MEDS: oxybutynin chloride XL 5 MG TABLET PO (08:22)
[2023-12-05] MEDS: gabapentin 300 mg Capsule PO (08:22)
[2023-12-05] MEDS: pantoprazole DR 40 mg Tablet PO (08:22)
[2023-12-05] MEDS: apixaban 5 mg Tablet PO (08:22)
[2023-12-05] MEDS: predniSONE 20 mg Tablet 40 MG PO (08:23)
[2023-12-05] MEDS: doxycycline 100 mg Tablet PO (08:27)
--- NOTE | 2023-12-05 09:51 | P.DS_ITS ---
Discharge Providers Date of Admission: 12/03/23 14:33 Date of Discharge: December 05, 2023 Attending Provider at Admission: Naya Acuña MD Attending Provider at Discharge: Hair Oropeza MD Primary Care Provider: Bandar Cloud MD Diagnoses at Discharge Discharge Diagnosis (1) Acute exacerbation of chronic obstructive airways disease: Status: Acute (2) Viral respiratory illness: Status: Acute (3) Obstructive sleep apnea: Status: Chronic Permanent problem details: home cpap but needs bipap (4) Chronic anticoagulation: Status: Chronic (5) Hypertension: Status: Acute Qualifiers: Hypertension type: primary hypertension Qualified Code(s): I10 - Essential (primary) hypertension (6) Hypothyroidism: Status: Chronic Qualifiers: Hypothyroidism type: acquired Qualified Code(s): E03.9 - Hypothyroidism, unspecified (7) Narcolepsy with cataplexy: Status: Chronic (8) Mixed urinary incontinence due to female genital prolapse: Status: Acute (9) Chronic pain: Status: Chronic (10) BMI 37.0-37.9, adult: Status: Acute (11) Tobacco use disorder, continuous: Status: Chronic (12) History of psychiatric care: Status: Acute Reason for Visit Reason for Visit: SOB Hospital Course Hospital Course Tomeka is a 58-year-old white female with severe COPD who presented to the hospital with increased shortness of breath and wheezing. There is no obvious pneumonia on chest x-ray. ABG indicated acute on chronic respiratory failure with hypoxia and hypercarbia. She was placed on BiPAP, steroids, nebulized treatments including inhaled steroids. Viral testing demonstrated positive coronavirus 229 E. With the above treatment by December 04 she was slightly better, but still significantly short of breath and it was thought further pulmonary toilet was needed. By December 05 she was feeling closer to baseline. There were attempts to get BiPAP approved in the hospital, unfortunately the patient refused overnight oximetry. She will discharge home with a short course of prednisone, doxycycline. She will use budesonide twice daily. She was encouraged not to smoke. She will follow-up with her primary care provider in 4 to 7 days, and can review with them whether or not BiPAP would be indicated. She was given an opportunity to ask questions, and agreed with the plan. Physical Exam Narrative: General exam no distress Neck is supple Cardiovascular regular rate and rhythm Lungs improved expansion but still some wheezing is noted Abdomen is soft Extremities no cyanosis clubbing or edema Discharge Data Studies Completed and Pending Completed Studies During Hospitalization Category Date Time Status XR chest 1V portable [id number] Urgent Exams 12/03/23 10:57 Completed Pending at discharge Category Date Time Status Blood Culture Stat Lab 12/03/23 11:33 Results Radiology Impressions Chest X-Ray 12/03/23 10:57 IMPRESSION: 1. Slightly increased diffuse bilateral pulmonary edema and/or pneumonitis which may be superimposed upon some scarring. 2. Unchanged mild cardiomegaly. Laboratory Results WBC 3.46 10^3/uL (3.29-11.43) 12/05/23 05:31 RBC 4.30 10^6/uL (3.85-5.65) 12/05/23 05:31 Hgb 13.00 g/dL (11.27-16.99) 12/05/23 05:31 Hct 40.4 % (36-47) 12/05/23 05:31 MCV 94.0 fl (85-98) 12/05/23 05:31 MCH 30.2 pg (27-33) 12/05/23 05:31 MCHC 32.2 g/dL (30-55) 12/05/23 05:31 RDW 13.2 % (12.1-15.1) 12/05/23 05:31 Plt Count 151 10^3/cmm (157-399) L 12/05/23 05:31 MPV 10.2 fL (7.4-10.4) 12/05/23 05:31 Neut % (Auto) 49.4 % 12/05/23 05:31 Lymph % (Auto) 36.1 % 12/05/23 05:31 Crisp % (Auto) 13.0 % 12/05/23 05:31 Eos % (Auto) 0.6 % 12/05/23 05:31 Baso % (Auto) 0.6 % 12/05/23 05:31 Neut # (Auto) 1.71 10^3/uL (1.8-7.7) L 12/05/23 05:31 Lymph # (Auto) 1.3 10^3/uL (0.8-4.8) 12/05/23 05:31 Crisp # (Auto) 0.5 10^3/uL (0.2-0.9) 12/05/23 05:31 Eos # (Auto) 0.0 10^3/uL (0.0-0.8) 12/05/23 05:31 Baso # (Auto) 0.0 10^3/uL (0.0-0.1) 12/05/23 05:31 Nucleated RBC % (auto) 0 % 12/05/23 05:31 Nucleated RBCs # 0.0 /100WBC 12/05/23 05:31 PT 13.10 SECONDS (12.1-14.9) 12/04/23 05:47 INR 0.96 (0.8-1.2) 12/04/23 05:47 APTT 24.1 SECONDS (23.9-36.7) 12/04/23 05:47 Specimen Type Arterial 12/03/23 13:00 Sample Site Radial, right 12/03/23 13:00 ABG pH 7.34 (7.35-7.45) L 12/03/23 13:00 ABG pCO2 64.8 mmHg (35-45) H* 12/03/23 13:00 ABG pO2 71.4 mmHg (80.0-100.0) L 12/03/23 13:00 ABG PO2/FiO2 Ratio 0 12/03/23 13:00 ABG HCO3 34.7 mmol/L (22-26) H 12/03/23 13:00 ABG O2 Saturation 94.4 12/03/23 13:00 ABG Base Excess 6.6 mmol/L (-2.0-2.0) H 12/03/23 13:00 Glenn Test Pos 12/03/23 13:00 A-a O2 Gradient 17.8 mmHg (5-10) H 12/03/23 13:00 Hematocrit 41.6 % (37-47) 12/03/23 13:00 Hgb O2 Saturation 89.8 % (95-100) L 12/03/23 13:00 Carboxyhemoglobin 4.2 %THgb (0.4-20.1) 12/03/23 13:00 Methemoglobin 0.8 % (0.4-1.5) 12/03/23 13:00 Total Hemoglobin 13.6 g/dL (12-16) 12/03/23 13:00 Sodium 140.0 mmol/L (131-143) 12/03/23 13:00 Potassium 3.6 mmol/L (3.5-5.0) 12/03/23 13:00 Glucose 119.0 mg/dL (70-115) H 12/03/23 13:00 Ionized Calcium 1.2 mmol/L (1.1-1.4) 12/03/23 13:00 O2 Delivery Device Bipap 12/03/23 13:00 O2 Liters/Min 4.0 % 12/03/23 10:57 FiO2 40.0 % 12/03/23 13:00 Reverse Engineer ID [place] 12/03/23 13:00 Sodium 138 mmol/L (136-145) 12/05/23 05:31 Potassium 3.7 mmol/L (3.5-5.1) 12/05/23 05:31 Chloride 97 mmol/L (98-107) L 12/05/23 05:31 Carbon Dioxide 35 mmol/L (22-29) H 12/05/23 05:31 Anion Gap 9.7 (5-19) 12/05/23 05:31 BUN 11 mg/dL (8-23) 12/05/23 05:31 Creatinine 0.5 mg/dL (0.5-0.9) 12/05/23 05:31 GFR Calculation 125.9 mL/min (90-130) 12/05/23 05:31 Glucose 96 mg/dL (65-115) 12/05/23 05:31 POC Glucose 122 mg/dL (70-110) H 12/05/23 06:36 Calculated Osmolality 285 mOsm/kg (285-295) 12/05/23 05:31 Calcium 8.6 mg/dL (8.5-10.5) 12/05/23 05:31 Magnesium 1.9 mg/dL (1.7-2.3) 12/04/23 05:47 Total Bilirubin 0.4 mg/dL (0.15-1.2) 12/03/23 11:33 AST 12 U/L (0-32) 12/03/23 11:33 ALT 11 U/L (0-33) 12/03/23 11:33 Alkaline Phosphatase 97 U/L (35-105) 12/03/23 11:33 Troponin T Baseline < 6 ng/L (0-10) 12/03/23 11:33 Troponin T 120 Minute 6.00 ng/L (0-10) 12/03/23 13:02 Delta Troponin T 0.70236 ABS# (0-10) 12/03/23 13:02 Troponin T Hi Sens 6Hr 6.00 ng/L (0-10) 12/03/23 18:13 Troponin T Hi Sens 6Hr Delta 0.89573 ng/L (0-12) 12/03/23 18:13 NT-Pro-B Natriuret Pep 88 pg/mL (0-125) 12/03/23 11:33 Total Protein 6.8 g/dL (6.6-8.7) 12/03/23 11:33 Albumin 4.0 g/dL (3.5-5.2) 12/03/23 11:33 Globulin 2.8 g/dL (1.3-4.6) 12/03/23 11:33 Procalcitonin 0.07 ng/mL (0-0.5) 12/03/23 11:33 Urine Color Yellow (Yellow) 12/04/23 14:36 Urine Appearance Clear (CLEAR) 12/04/23 14:36 Urine pH 6 (5-7) 12/04/23 14:36 Ur Specific [place] 1.020 (1.005-1.030) 12/04/23 14:36 Urine Protein Neg (Negative) 12/04/23 14:36 Urine Glucose (UA) Norm (Normal) 12/04/23 14:36 Urine Ketones Negative (Negative) 12/04/23 14:36 Urine Blood Neg (Negative) 12/04/23 14:36 Urine Nitrate Negative (Negative) 12/04/23 14:36 Urine Bilirubin Neg (Negative) 12/04/23 14:36 Urine Urobilinogen Norm mg/dL (Negative) 12/04/23 14:36 Ur Leukocyte Esterase Negative (Negative) 12/04/23 14:36 Adenovirus (PCR) Not detected (NOT DETECT) 12/03/23 11:55 C. pneumoniae DNA (PCR) Not detected (NOT DETECT) 12/03/23 11:55 Coronavirus 229E (PCR) Detected (NOT DETECT) A 12/03/23 11:55 Human Metapneumovir PCR Not detected (NOT DETECT) 12/03/23 11:55 Influenza A (H1) PCR Not detected (NOT DETECT) 12/03/23 11:55 Influ A (H1/09) PCR Not detected (NOT DETECT) 12/03/23 11:55 Influenza A (H3) PCR Not detected (NOT DETECT) 12/03/23 11:55 Influenza Type A (PCR) Not detected (NOT DETECT) 12/03/23 11:55 Influenza Type B (PCR) Not detected (NOT DETECT) 12/03/23 11:55 M. pneumoniae (PCR) Not detected (NOT DETECT) 12/03/23 11:55 Parainfluenza 1 (PCR) Not detected (NOT DETECT) 12/03/23 11:55 Parainfluenza 2 (PCR) Not detected (NOT DETECT) 12/03/23 11:55 Parainfluenza 3 (PCR) Not detected (NOT DETECT) 12/03/23 11:55 Parainfluenza 4 (PCR) Not detected (NOT DETECT) 12/03/23 11:55 RSV Type A (PCR) Not detected (NOT DETECT) 12/03/23 11:55 RSV Type B (PCR) Not detected (NOT DETECT) 12/03/23 11:55 Entero/Rhino (PCR) Not detected (NOT DETECT) 12/03/23 11:55 SARS-CoV-2 (PCR) Not detected (NOT DETECT) 12/03/23 11:55 Vitals Last Vital Signs Temp 97.7 F 12/05/23 07:56 Pulse 77 12/05/23 07:56 Resp 18 12/05/23 07:56 BP 143/81 12/05/23 07:56 Pulse Ox 95 12/05/23 07:56 O2 Del Method BiPAP 12/05/23 07:32 O2 Flow Rate 35 12/05/23 03:49 FiO2 35 12/05/23 07:32 Discharge Plan Discharge Patient Disposition: Home Condition: Stable Prescriptions: New prednisone 20 mg Tablet 40 mg PO DAILY Qty: 8 0RF doxycycline monohydrate 100 mg Tablet 100 mg PO BID Qty: 14 0RF budesonide 0.5 mg/2 mL Suspension For Nebulization 0.5 mg inhalation BID.RESPIRATORY Qty: 120 0RF Continued Eliquis 5 mg tablet 5 mg PO BID (DME) cam boot See Rx Instructions .Route .MEDSUPPLY Qty: 1 0RF Rx Instructions: As directed oxybutynin chloride 5 mg tablet extended release 24hr 5 mg PO DAILY Qty: 30 0RF (DME) CPAP Machine/Supplies See Rx Instructions .Route .MEDSUPPLY Qty: 1 0RF Rx Instructions: Order for CPAP Machine and Supplies (DME) CPAP w/Humidifier, Headgear See Rx Instructions .Route .MEDSUPPLY Qty: 1 0RF Rx Instructions: As directed quetiapine 150 mg tablet extended release 24 hr 150 mg PO BEDTIME Qty: 30 0RF duloxetine [Cymbalta] 60 mg capsule,delayed release(DR/EC) 120 mg PO QAM Qty: 60 0RF montelukast 10 mg tablet 10 mg PO QAM albuterol sulfate 90 mcg/actuation HFA aerosol inhaler 2 inh INHALATION Q4H PRN (Reason: shortness of breath or wheezing) Qty: 18 0RF gabapentin 300 mg Capsule 300 mg PO TID acetaminophen 500 mg Tablet 1,000 - 1,500 mg PO Q6H PRN (Reason: Pain) levothyroxine 88 mcg tablet 88 mcg PO QAM valsartan 80 mg tablet 80 mg PO QAM azelastine 137 mcg (0.1 %) aerosol,spray 2 spray INTRANASAL BID trazodone 50 mg Tablet 100 mg PO BEDTIME ipratropium-albuterol 0.5 mg-3 mg(2.5 mg base)/3 mL solution for nebulization 3 ml INHALATION QID omeprazole 20 mg capsule,delayed release(DR/EC) 40 mg PO QAM aspirin 81 mg Tablet,Delayed Release (Dr/Ec) 81 mg PO QAM varenicline 1 mg tablet 1 mg PO BID Discontinued nitrofurantoin monohyd/m-cryst 100 mg capsule 100 mg PO BID Discharge Orders: Discharge Order (Routine); Ordered 12/05/23 Ordered By: Hair Oropeza Other Ambulatory Orders: DME: BIPAP (Order) Location: None Selected Ordered By: Hair Oropeza Referrals: Bandar Cloud MD [Primary Care Provider] - 12/10/23 1:00 pm (Discussed with your primary care provider possibility of BiPAP, treatment of elevated sugar) Discharge Diet: Diabetic Discharge Activity: Increase activity as tolerated Patient Instructions: Doxycycline (By mouth), Prednisone (By mouth), Budesonide (By breathing), COPD (Chronic Obstructive Pulmonary Disease) (DC), COPD Stoplight, Opioid Safety Activity Restrictions/Additional Instructions: Take all medicine as prescribed Initiate budesonide twice daily Use your DuoNeb 4 times daily at home No smoking Discussed with your primary care provider your elevated sugar, possibility of BiPAP Keep your appointment with pulmonary that you have already scheduled Return for any concerns Discharge Attestations Time Spent in Discharge Care*: greater than 30 min Status at Discharge: Cognitive status at discharge: cognitively intact , Behavioral status at discharge: cooperative , Quality Metrics Clinical Quality Measures [ No reported AMI, CVA or VTE this stay] Coding Level of Care Code Acute Code for Chg Fwd Diagnoses Acute exacerbation of chronic obstructive airways disease J44.1 Viral respiratory illness J98.8; B97.89 Obstructive sleep apnea G47.33 Chronic anticoagulation Z79.01 Primary hypertension I10 Hypertension type: primary hypertension Acquired hypothyroidism E03.9 Hypothyroidism type: acquired Narcolepsy with cataplexy G47.411 Mixed urinary incontinence due to female genital prolapse N39.46; N81.9 Chronic pain G89.29 BMI 37.0-37.9, adult Z68.37 Tobacco use disorder, continuous F17.209 History of psychiatric care Z92.89
[2023-12-05 11:09] LABS: Glucose Point of Care 164 mg/dL (70-110)
[2023-12-05] MEDS: insulin lispro 100 unit/1 mL SUBCUT (12:09)
--- NOTE | 2023-12-05 12:26 | PC.NURSE ---
Discussed discharge instructions with patient. Went over the COPD Stoplight and encouraged patient to place on the refrigerator for quick reference and to stop smoking especially with the oxygen in use. Discussed new medications, follow up medications along with stopped medications. Patient verbalized understanding.
--- NOTE | 2023-12-05 12:30 | PC.NURSE ---
Patient had to wait on brother to bring oxygen to go home.
== END 2023-12-05 11:59 | disposition home or self-care (01) ==
LOC: ER 13:51 → MEDSURG 14:34
PROVIDERS: Admitting Provider Hospitalist; Emergency Provider Physician Assistant; PCP Family Medicine; Visit Provider Internal Medicine
DX: J44.1 Chronic obstructive pulmonary disease with (acute) exacerbation (principal); J98.8 Other specified respiratory disorders; B97.89 Other viral agents as the cause of diseases classified elsewhere; G47.33 Obstructive sleep apnea (adult) (pediatric); Z79.01 Long term (current) use of anticoagulants; I10 Essential (primary) hypertension; E03.9 Hypothyroidism, unspecified; G47.411 Narcolepsy with cataplexy; N39.46 Mixed incontinence; N81.9 Female genital prolapse, unspecified; G89.29 Other chronic pain; Z68.37 Body mass index [BMI] 37.0-37.9, adult; F17.209 Nicotine dependence, unspecified, with unspecified nicotine-induced disorders; Z92.89 Personal history of other medical treatment; Z99.81 Dependence on supplemental oxygen; Z79.82 Long term (current) use of aspirin
CPT/HCPCS: 36415; 36416; 36600; 71045; 80048; 80051; 80053; 81003; 82330; 82805; 82962; 83735; 83880; 84145; 84484; 85025; 85610; 85730; 87040; 87486; 87581; 87633; 93005; 94640; 94660; 94762; 96365; 96366; 96367; 96372; 96375; 99285; G0378; J0456; J0696; J1815; J2930; J7050; J7512; J7626

== ENCOUNTER → 2024-01-07 10:22 | Outpatient (BNVA) | payer MEDICARE, MEDICAID, SELFPAY ==
[2020-07-18 17:32] VITALS: BP 115/65; BMI 41.0
== END ==
PROVIDERS: PCP Family Medicine; Visit Provider Obstetrics & Gynecology
DX: N81.4 Uterovaginal prolapse, unspecified (principal); N83.202 Unspecified ovarian cyst, left side
CPT/HCPCS: 76830

== ENCOUNTER → 2024-02-25 08:18 | Outpatient (BNVA) | payer MEDICARE, MEDICAID, SELFPAY ==
[2020-07-18 17:32] VITALS: BP 115/65; BMI 41.0
== END ==
PROVIDERS: PCP Family Medicine; Visit Provider Specialist
DX: R29.90 Unspecified symptoms and signs involving the nervous system (principal); G47.33 Obstructive sleep apnea (adult) (pediatric); F17.209 Nicotine dependence, unspecified, with unspecified nicotine-induced disorders; F31.81 Bipolar II disorder; G47.00 Insomnia, unspecified
CPT/HCPCS: 99213

== ENCOUNTER → 2024-02-26 07:57 | Outpatient (BNVA) | payer MEDICARE, MEDICAID, SELFPAY ==
[2020-07-18 17:32] VITALS: BP 115/65; BMI 41.0
== END ==
PROVIDERS: PCP Family Medicine; Visit Provider Internal Medicine Pulmonary Disease
DX: R91.1 Solitary pulmonary nodule (principal); J44.1 Chronic obstructive pulmonary disease with (acute) exacerbation; J96.21 Acute and chronic respiratory failure with hypoxia; F17.200 Nicotine dependence, unspecified, uncomplicated; I26.99 Other pulmonary embolism without acute cor pulmonale; J44.9 Chronic obstructive pulmonary disease, unspecified; G47.33 Obstructive sleep apnea (adult) (pediatric); Z99.81 Dependence on supplemental oxygen
CPT/HCPCS: 71046; 99214

== ENCOUNTER 2024-03-17 20:00 | Outpatient (CLI) | payer MEDICARE, MEDICAID, SELFPAY ==
[2020-07-18 17:32] VITALS: BP 115/65; BMI 41.0
== END 2024-03-17 20:01 | disposition home or self-care (01) ==
LOC: SLEEP 03-18 05:12
PROVIDERS: PCP Family Medicine; Visit Provider Specialist
DX: G47.33 Obstructive sleep apnea (adult) (pediatric) (principal)
CPT/HCPCS: 95811

== ENCOUNTER 2024-03-31 17:05 | Outpatient (CLI) | payer MEDICARE, MEDICAID, SELFPAY ==
[2020-07-18 17:32] VITALS: BP 115/65; BMI 41.0
--- NOTE | 2024-03-31 17:00 | CT_ITS ---
WS: [id number] LDCT LUNG CANCER SCREENING HISTORY: Cancer Screen TECHNIQUE: Axial imaging performed from the apices to 1 cm below the costophrenic angles. Coronal and sagittal reformats are submitted with axial MIP series. All CT scans at [facility] use at least one of these dose optimization techniques: automated exposure control; mA and/or kV adjustment per patient size (includes targeted exams where dose is matched to clinical indication); or iterativ e reconstruction. DLP: 137.61 mGy.cm DIvol: Mean CTDIvol: 3.00 (mGy) COMPARISON: 04/20/2023 Diagnostic quality: Satisfactory Lungs: Moderate pulmonary hyperexpansion. There are bilateral pleural and subpleural opacifications t hroughout both lungs. Subsolid nodule 7 mm LEFT upper lobe, image 121 series 5. Tree-in-bud airspace disease with associated 5 mm nodules RIGHT middle lobe. There are a few scattered granulomata. Focal areas of scarring and atelectasis. 4 mm nodule LEFT lower lobe, image 175 of series 5. Heart: Normal size heart with no pericardial effusion.. Other findings: Dilated pulmonary artery to 3.7 cm. Mild atherosclerosis aorta. Benign-appearing medi astinal and hilar lymph nodes. Hilar adenopathy would be difficult to exclude without contrast. No ad renal mass. Hepatic steatosis. T11, T12 and L1 compression fractures. 3 mm retrolisthesis superior en dplate of T11. Similar to 04/20/2023. CT/CT lung screening [id number] IMPRESSION: LUNG-RADS: 3S-Probably Benign with Significant Findings FOLLOW UP: 6 Month LDCT OTHER FINDINGS (S MODIFIER): Pulmonary hypertension.
== END 2024-03-31 17:06 | disposition home or self-care (01) ==
LOC: RAD 17:08
PROVIDERS: PCP Family Medicine; Visit Provider Internal Medicine Pulmonary Disease
DX: Z12.2 Encounter for screening for malignant neoplasm of respiratory organs (principal); F17.210 Nicotine dependence, cigarettes, uncomplicated; J98.4 Other disorders of lung; J84.10 Pulmonary fibrosis, unspecified; J98.11 Atelectasis; R91.8 Other nonspecific abnormal finding of lung field; K76.0 Fatty (change of) liver, not elsewhere classified; S22.080A Wedge compression fracture of T11-T12 vertebra, initial encounter for closed fracture; S32.010A Wedge compression fracture of first lumbar vertebra, initial encounter for closed fracture; M43.14 Spondylolisthesis, thoracic region; I27.20 Pulmonary hypertension, unspecified
CPT/HCPCS: 71271

== ENCOUNTER 2024-06-09 12:26 | Outpatient (RCR) | payer MEDICARE, MEDICAID, SELFPAY ==
[2020-07-18 17:32] VITALS: BP 115/65; BMI 41.0
== END 2024-06-20 18:00 | disposition home or self-care (01) ==
LOC: SPT 12:26
PROVIDERS: PCP Nurse Practitioner Family; Visit Provider Nurse Practitioner Family
DX: G89.29 Other chronic pain (principal)
CPT/HCPCS: 97110; 97161

== ENCOUNTER 2024-06-17 13:53 | Outpatient (CLI) | payer MEDICARE, MEDICAID, SELFPAY ==
[2020-07-18 17:32] VITALS: BP 115/65; BMI 41.0
--- NOTE | 2024-06-17 14:00 | MM_ITS ---
WS: [id number] VIEWS: MLO and CC views both breasts. 3D digital tomosynthesis is also included in this exam. Comparison made with prior exam of VIEWS: MLO and CC views both breasts. 3D digital tomosynthesis is also included in this exam. Comparison made with prior exam of 04/04/2016, 10/08/2017, 12/16/2018, 05/30/2021,. Findings: There was no sign of mass, architectural distortion or suspicious calcification in either breast. The breasts are extremely dense which lowers the sensitivity of mammography. MM/[place] [id number] Impression: BI-RADS: 2-Benign finding. FOLLOW-UP: 1 Year Follow-up This mammogram was also analyzed by the Computer Aided Detection System R2 Imag e Culinary Art Teacher. .
--- NOTE | 2024-06-17 14:00 | XR_ITS ---
WS: [id number] DEXA (DUAL ENERGY X-RAY ABSORPTIOMETRY) Bone mineral density was performed using a [employer] machine. HISTORY: POSTMENOPAUSAL COMPARISON: 08/13/2016 Lumbar spine BMD (L1-L4): 0.948 g/cm2 T score: -1.9 Z score: -1.8 Total hip BMD: Left: 0.807 g/cm2. T score: -1.6 Z score: -1.5 Right: 0.754 g/cm2. T score: -2.0 Z score: -1.9 Compared to the prior study from 08/13/2060. Lumbar spine bone mineral density has decreased by 0.6%. Bilateral hips bone mineral density has decreased by 7.6%. XR/XR DEXA axial skeleton* [id number] IMPRESSION: OSTEOPENIA based upon the WHO classification for females. Significant decrease in bone mineral density within the hips since the prior .
== END 2024-06-17 13:54 | disposition home or self-care (01) ==
LOC: RAD 13:57
PROVIDERS: PCP Nurse Practitioner Family; Visit Provider Nurse Practitioner Family
DX: Z78.0 Asymptomatic menopausal state (principal); Z12.31 Encounter for screening mammogram for malignant neoplasm of breast; R92.343 Mammographic extreme density, bilateral breasts; M85.80 Other specified disorders of bone density and structure, unspecified site
CPT/HCPCS: 77063; 77067; 77080

== ENCOUNTER 2024-07-02 15:49 | Inpatient (IN) | payer MEDICARE, MEDICAID, SELFPAY ==
[2020-07-18 17:32] VITALS: BP 115/65; BMI 41.0
[2024-07-02] VITALS (9 sets, daily range): BP systolic 92–131; BP diastolic 59–88; PULSE 72–92; RESP 17–22; TEMP 36.4–36.6; O2SAT 92–99; BMI 37.9
--- NOTE | 2024-07-02 16:02 | XRR_ITS ---
PROCEDURE INFORMATION: Exam: XR Chest Exam date and time: 07/02/2024 4:12 PM Age: 58 years old Clinical indication: Cough and dyspnea; Patient HX: Flu like symptoms for approx 5 days; Additional info: Dyspnea/cough TECHNIQUE: Imaging protocol: Radiologic exam of the chest. Views: 1 view. COMPARISON: CT lung screening [id number] 03/31/2024 5:14 PM FINDINGS: Lungs: Lingular/left basilar airspace opacity suggestive of pneumonia. Pleural spaces: No evidence of pneumothorax. No evidence of pleural effusion. Heart/Mediastinum: Cardiomediastinal silhouette is within normal limits. Bones/joints: No evidence of acute osseous abnormality. XR/XR chest 1V portable [id number] IMPRESSION: 1. Lingular/left lower lobe pneumonia.
[2024-07-02 16:27] LABS: Basophils % 0.3 %; Eosinophils % 0.2 %; Hematocrit 41.7 % (36-47); Lymphocytes # 0.9 10^3/uL (0.8-4.8); Mean Corpuscular HGB Conc 32.4 g/dL (30-55); Mean Corpuscular Hemoglobin 30.9 pg (27-33); Mean Corpuscular Volume 95.4 fl (85-98); Mean Platelet Volume 11.1 fL (7.4-10.4); Monocytes % 8.1 %; Neutrophils # 10.22 10^3/uL (1.8-7.7); Neutrophils % 84.1 %; Nucleated Red Blood Cells % 0 %; Platelet Count 168 10^3/cmm (157-399); Red Blood Count 4.37 10^6/uL (3.85-5.65); Red Cell Distribution Width 12.7 % (12.1-15.1); White Blood Count 12.15 10^3/uL (3.29-11.43)
--- NOTE | 2024-07-02 16:58 | PC.NURSE ---
antibiotics ordered @1636 delayed d/t blood cultures not being obtained
--- NOTE | 2024-07-02 17:02 | ED_ITS ---
HPI - COVID 2 General: Chief Complaint: COVID symptoms Stated Complaint: flu like symptoms Time Seen by Provider: 07/02/24 15:57 History of Present Illness: 58-year-old female who presents to the e mergency room with complaints of shortness of breath myalgias headache nausea. Symptoms began 6 days ago. She has had 1 episode of diarrhea. She denies headache chest pain or shortness of breath she has had a mildly productive cough. Denies abdominal pain. Patient is chronically on oxygen at 3 L/min COVID 19 common symptoms: positive productive cough, dyspnea and headache(s); negative fever(s) or chills COVID 19 other sytmptoms: negative chest pain COVID Results: 2 SARS-CoV-2 Antigen (Rapid) negative (Negative) 10/07/23 11:57 SARS-CoV-2 RNA (RT-PCR) Not detected (NOT DETECTED) 10/31/21 1 5:30 Nasal/Oral Coronavirus 2019 PCR Negative 07/15/20 09:20 SARS-CoV-2 (PCR) Not detected (NOT DETECT) 12/03/23 11:55 Coronavirus Type 229E (PCR) Detected (NOT DETECT) A 12/03/23 1 1:55 Coronavirus (PCR) Negative (Negative) 07/02/24 16:43 Related Data Home Medications Medication Instructions Recorded Confirmed apixaban 5 mg tablet (Eliquis) 5 mg PO BID 02/12/20 02/26/24 montelukast 10 mg tablet 10 mg PO QAM 05/28/20 02/26/24 gabapentin 300 mg capsule 300 mg PO TID 08/25/21 02/26/24 acetaminophen 500 mg tablet 1,000 - 1,500 mg PO Q6H PRN Pain 10/03/21 02/26/24 azelastine 137 mcg (0.1 %) nasal 2 spray intranasal BID 04/19/23 02/26/24 spray levothyroxine 88 mcg tablet 88 mcg PO QAM 04/19/23 02/26/24 valsartan 80 mg tablet 80 mg PO QAM 04/19/23 02/26/24 aspirin 81 mg tablet,delayed 81 mg PO QAM 07/01/23 02/26/24 release ipratropium 0.5 mg-albuterol 3 mg 3 ml inhalation QID 07/01/23 02/26/24 (2.5 mg base)/3 mL nebulization soln omeprazole 20 mg capsule,delayed 40 mg PO QAM 07/01/23 02/26/24 release trazodone 50 mg tablet 100 mg PO BEDTIME 10/07/23 02/26/24 Previous Rx's Medication Instructions Recorded albuterol sulfate 90 mcg/actuation 2 inh inhalation Q4H PRN shortness 05/28/20 aerosol inhaler of breath or wheezing #18 grams CPAP Machine/Supplies #1 ea 07/11/22 CPAP w/Humidifier, [employer]gear #1 ea 07/11/22 cam boot #1 ea 08/14/22 duloxetine 60 mg capsule,delayed 120 mg (2 x 60 mg) PO QAM #60 caps 01/24/23 release (Cymbalta) quetiapine 150 mg tablet,extended 150 mg PO BEDTIME #30 tabs 01/24/23 release 24 hr oxybutynin chloride 5 mg 5 mg PO DAILY #30 tabs 11/21/23 tablet,extended release 24 hr varenicline 1 mg tablet 1 mg PO BID #60 tabs 12/10/23 amoxicillin 500 mg-potassium 1 tab PO Q12H #14 tabs 02/26/24 clavulanate 125 mg tablet (Augmentin) fluticasone fur. 100 mcg-umeclid 1 inh inhalation DAILY #60 ea 02/26/24 62.5 mcg-vilant 25 mcg inhalat.powder (Trelegy Ellipta) prednisone 10 mg tablet 10 mg PO DAILY #11 tabs 02/26/24 Allergies Allergy/AdvReac Type Severity Reaction Status Date / Time levofloxacin [From Levaquin] Allergy Intermediate ADR-Abdominal Verified 02/26/24 08:20 Pain Sulfa (Sulfonamide Allergy Intermediate ADR-Blurry Verified 02/26/24 08:20 Antibiotics) Vision nitrofurantoin Allergy Unknown Verified 02/26/24 08:20 Review of Systems 2 Const: Denies: fever(s) or chills Card: Denies: chest pain Resp: Reports: dyspnea and productive cough GI: Denies: abdominal pain : Denies: dysuria, urinary frequency or urinary urgency Musc: Denies: neck pain or back pain Skin/Breast: Denies: rash Neuro: Reports: headache(s) PFSH ED 2 PFSH: Medical History Hypertension Hypothyroidism Left upper lobe pulmonary nodule Fracture of fifth metatarsal bone of right foot Mixed urinary incontinence due to female genital prolapse POP-Q stage 3 cystocele POP-Q stage 2 rectocele Chronic respiratory failure with hypoxia and hypercapnia Fracture of distal end of right fibula Obstructive sleep apnea hypopnea, severe Narcolepsy with cataplexy Non-insulin dependent type 2 diabetes mellitus Pneumonia COPD (chronic obstructive pulmonary disease) Chronic COPD. Chronic smoking. She is aware of the risks of cigarette smoking with COPD. Tobacco use disorder, continuous Chronic post-traumatic stress disorder (PTSD) Bipolar 2 disorder Ovarian cyst Insomnia Bilateral pulmonary embolism -on AC with Eliquis Hepatitis C virus infection cured after antiviral drug therapy Anxiety and depression Spinal stenosis GERD (gastroesophageal reflux disease) Chronic pain Obstructive sleep apnea home cpap but needs bipap Hyperlipidemia Surgical History H/O tubal ligation History of colonoscopy 2019 History of elbow surgery left-2017 Status post left foot surgery H/O section Family History Mother Cancer Breast cancer Diabetes Social History Smoking and tobacco/nicotine status: current every day tobacco/nicotine user (3-4 cigarettes) cigarettes Packs smoked per day: 2.5 Years cigarettes smoked: 41 [ Other cigarette details: started age 9, regular smoker by age 13; currently 1ppd ] Quit status (tobacco/nicotine): considering quitting Second hand smoke exposure: No Alcohol intake: never Substance/Drug Use: never Household members: children Current occupational status: unemployed Physical Exam 2 Const: GENERAL APPEARANCE: cooperative ORIENTATION/CONSCIOUSNESS: Yes awake, Yes oriented to person, Yes oriented to place and Yes oriented to time HENMT: COMMON NORMALS: normocephalic, atraumatic and hearing grossly normal bilaterally HEAD & SCALP: normocephalic and atraumatic Resp: AUSCULTATION: rhonchi and wheezes Cardio: COMMON NORMALS: regular rate, regular rhythm and No murmurs present (Cardio) RATE: regular rate RHYTHM: regular rhythm GI: COMMON NORMALS: Soft to palpation and No hepatosplenomegaly present A USCULTATION: Yes normoactive bowel sounds PALPATION: Yes Soft to palpation, No Tenderness to palpation present (GI), No Guarding due to palpation present (GI) and Yes No hepatosplenomegaly present Extremity: COMMON NORMALS: normal to inspection, capillary refill normal, no clubbing, cyanosis or edema, no calf tenderness and no pedal edema Neuro: SENSORIUM/ORIENTATION: Yes oriented to person, Yes oriented to place and Yes oriented to time Skin: COMMON NORMALS: no rashes or lesions noted GENERAL SKIN EXAM: no rashes or lesions noted Course 2 Vital Signs: Vital signs: Vital Signs Temperature 97.9 F 07/02/24 15:51 Pulse Rate 82 07/02/24 17:46 Respiratory Rate 22 H 07/02/24 17:46 Blood Pressure 92/59 07/02/24 17:46 Pulse Oximetry 92 07/02/24 17:46 Oxygen Delivery Me thod Nasal Cannula 07/02/24 17:46 Oxygen Flow Rate 3 07/02/24 17:46 [facility] - COVID Medical Decision Making Patient's had an episode of hypotension while here she is having fairly severe difficulty with her COPD as well she has a left lower lobe pneumonia COVID was negative. Will admit the patient discussed Dr. Gomes orders written started on ceftriaxone and Zithromax she is also receiving steroids and nebulizers. Medical Records I reviewed the patient's medical records. Lab Data I reviewed the patient's lab results. 07/02/24 16:23 07/02/24 17:05 Radiology Impressions Chest X-Ray 07/02/24 16:02 IMPRESSION: 1. Lingular/left lower lobe pneumonia. ADDENDUM: 07/02/24 [id number] The findings were verbally communicated by telephone with Dr. MOYA at 4:43 PM CDT on 07/02/2024. Laboratory Results WBC 12.15 10^3/uL (3.29-11.43) H 07/02/24 16:23 RBC 4.37 10^6/uL (3.85-5.65) 07/02/24 16:23 Hgb 13.50 g/dL (11.27-16.99) 07/02/24 16:23 Hct 41.7 % (36-47) 07/02/24 16:23 MCV 95.4 fl (85-98) 07/02/24 16:23 MCH 30.9 pg (27-33) 07/02/24 16:23 MCHC 32.4 g/dL (30-55) 07/02/24 16:23 RDW 12.7 % (12.1-15.1) 07/02/24 16:23 Plt Count 168 10^3/cmm (157-399) 07/02/24 16:23 MPV 11.1 fL (7.4-10.4) H 07/02/24 16:23 Neut % (Auto) 84.1 % 07/02/24 16:23 Lymph % (Auto) 7.0 % 07/02/24 16:23 [place] % (Auto) 8.1 % 07/02/24 16:23 Eos % (Auto) 0.2 % 07/02/24 16:23 Baso % (Auto) 0.3 % 07/02/24 16:23 Neut # (Auto) 10.22 10^3/uL (1.8-7.7) H 07/02/24 16:23 Lymph # (Auto) 0.9 10^3/uL (0.8-4.8) 07/02/24 16:23 [place] # (Auto) 1.0 10^3/uL (0.2-0.9) H 07/02/24 16:23 Eos # (Auto) 0.0 10^3/uL (0.0-0.8) 07/02/24 16:23 Baso # (Auto) 0.0 10^3/uL (0.0-0.1) 07/02/24 16:23 Nucleated RBC % (auto) 0 % 07/02/24 16:23 Nucleated RBCs # 0.0 /100WBC 07/02/24 16:23 Sodium 135 mmol/L (136-145) L 07/02/24 17:05 Potassium 4.1 mmol/L (3.5-5.1) 07/02/24 17:05 Chloride 100 mmol/L (98-107) 07/02/24 17:05 Carbon Dioxide 22 mmol/L (22-29) 07/02/24 17:05 Anion Gap 17.1 (5-19) 07/02/24 17:05 BUN 8 mg/dL (8-23) 07/02/24 17:05 Creatinine 0.3 mg/dL (0.5-0.9) L 07/02/24 17:05 GFR Calculation 226.9 mL/min (90-130) H 07/02/24 17:05 Glucose 108 mg/dL (65-115) 07/02/24 17:05 Calculated Osmolality 279 mOsm/kg (285-295) L 07/02/24 17:05 Lactic Acid 0.9 mmol/L (0.5-2.2) 07/02/24 17:05 Calcium 8.9 mg/dL (8.5-10.5) 07/02/24 17:05 Total Bilirubin 1.3 mg/dL (0.15-1.2) H 07/02/24 17:05 AST 13 U/L (0-32) 07/02/24 17:05 ALT 12 U/L (0-33) 07/02/24 17:05 Alkaline Phosphatase 84 U/L (35-105) 07/02/24 17:05 Total Protein 6.6 g/dL (6.6-8.7) 07/02/24 17:05 Albumin 3.5 g/dL (3.5-5.2) 07/02/24 17:05 Globulin 3.1 g/dL (1.3-4.6) 07/02/24 17:05 Coronavirus (PCR) Negative (Negative) 07/02/24 16:43 Influenza A (PCR) Negative (Negative) 07/02/24 16:43 Influenza Type B (PCR) Negative (Negative) 07/02/24 16:43 RSV (PCR) Negative (Negative) 07/02/24 16:43 2 SARS-CoV-2 Antigen (Rapid) negative (Negative) 10/07/23 11:57 SARS-CoV-2 RNA (RT-PCR) Not detected (NOT DETECTED) 10/31/21 1 5:30 Nasal/Oral Coronavirus 2019 PCR Negative 07/15/20 09:20 SARS-CoV-2 (PCR) Not detected (NOT DETECT) 12/03/23 11:55 Coronavirus Type 229E (PCR) Detected (NOT DETECT) A 12/03/23 1 1:55 Coronavirus (PCR) Negative (Negative) 07/02/24 16:43 All radiology interpretation(s) finalized by discharge Discharge Plan Discharge Patient Disposition: Admitted As Inpatient Clinical Impression: Pneumonia, Acute exacerbation of chronic obstructive pulmonary disease Condition: Stable Coding Level of Care Code ED Rental Manager for Parmjit Colin
[2024-07-02] MEDS: dexamethasone 10 mg/mL INJ IM (17:30)
[2024-07-02] MEDS: cefTRIAXone 1,000 mg SDV 1000 MG IVP (17:30)
[2024-07-02] MEDS: azithromycin 500 MG in sodium chloride 0.9% 250 ML 250 MG IV (17:35)
[2024-07-02 17:36] LABS: Albumin Level 3.5 g/dL (3.5-5.2); Alkaline Phosphatase 84 U/L (35-105); Blood Urea Nitrogen 8 mg/dL (8-23); Calcium 8.9 mg/dL (8.5-10.5); Carbon Dioxide 22 mmol/L (22-29); Chloride 100 mmol/L (98-107); Creatinine Clr Calc Pharmacy 246.2406; Globulin 3.1 g/dL (1.3-4.6); Glomerular Filtration Rate 226.9 mL/min (90-130); Glucose 108 mg/dL (65-115); Osmolality Calculated 279 mOsm/kg (285-295); Sodium 135 mmol/L (136-145); Total Bilirubin 1.3 mg/dL (0.15-1.2); Total Protein 6.6 g/dL (6.6-8.7)
[2024-07-02 17:37] LABS: Lactic Sepsis W/Reflex 0.9 mmol/L (0.5-2.2)
[2024-07-02 17:39] LABS: Alanine Aminotransferase 12 U/L (0-33); Anion Gap 17.1 (5-19); Aspartate Amino Transferase 13 U/L (0-32); Potassium 4.1 mmol/L (3.5-5.1)
[2024-07-02 17:49] LABS: Covid PCR NEGATIVE (Negative); Influenza A NEGATIVE (Negative); Influenza B NEGATIVE (Negative); Respiratory Syncytial Virus Ce NEGATIVE (Negative)
--- NOTE | 2024-07-02 19:10 | P.HP_ITS ---
Providers/Chief Complaint 2 Admitting Physician: Willard Gomes Primary Care Provider: OSCAR Hassan Chief Complaint: flu like symptoms History of Present Illness Tomeka Marshall is a 58 year old female Review of Systems 2 Const: Reports: fever(s), chills, body aches and malaise ENMT: Denies: throat pain, oral sores or ear or mastoid pain Card: Denies: chest pain, edema, pre-syncope or dyspnea on exertion Resp: Reports: dyspnea and productive cough; Denies: hemoptysis GI: Reports: diarrhea (1 episode 5 days ago); Denies: abdominal pain, nausea, vomiting, constipation, hematochezia or melena : Denies: flank pain, urinary frequency or hematuria Musc: Denies: back pain, joint swelling or joint redness Skin/Breast: Denies: rash or new lesions Neuro: Reports: headache(s); Denies: dizziness Endo: Denies: polyuria Medications/Allergies Home Medications Medication Instructions Recorded Confirmed Last Taken Type apixaban 5 mg tablet (Eliquis) 5 mg PO BID 02/12/20 02/26/24 04/22/23 History albuterol sulfate 90 mcg/actuation 2 inh inhalation Q4H PRN shortness 05/28/20 02/26/24 09/04/20 Rx aerosol inhaler of breath or wheezing #18 grams montelukast 10 mg tablet 10 mg PO QAM 05/28/20 02/26/24 04/22/23 History gabapentin 300 mg capsule 300 mg PO TID 08/25/21 02/26/24 04/22/23 History acetaminophen 500 mg tablet 1,000 - 1,500 mg PO Q6H PRN Pain 10/03/21 02/26/24 Unknown History CPAP Machine/Supplies #1 ea 07/11/22 02/26/24 Unknown Rx CPAP w/Humidifier, Headgear #1 ea 07/11/22 02/26/24 Unknown Rx cam boot #1 ea 08/14/22 02/26/24 Unknown Rx duloxetine 60 mg capsule,delayed 120 mg (2 x 60 mg) PO QAM #60 caps 01/24/23 02/26/24 04/22/23 Rx release (Cymbalta) quetiapine 150 mg tablet,extended 150 mg PO BEDTIME #30 tabs 01/24/23 02/26/24 04/21/23 Rx release 24 hr azelastine 137 mcg (0.1 %) nasal 2 spray intranasal BID 04/19/23 02/26/24 04/22/23 History spray levothyroxine 88 mcg tablet 88 mcg PO QAM 04/19/23 02/26/24 04/22/23 History valsartan 80 mg tablet 80 mg PO QAM 04/19/23 02/26/24 04/22/23 History aspirin 81 mg tablet,delayed 81 mg PO QAM 07/01/23 02/26/24 Unknown History release ipratropium 0.5 mg-albuterol 3 mg 3 ml inhalation QID 07/01/23 02/26/24 Unknown History (2.5 mg base)/3 mL nebulization soln omeprazole 20 mg capsule,delayed 40 mg PO QAM 07/01/23 02/26/24 Unknown History release trazodone 50 mg tablet 100 mg PO BEDTIME 10/07/23 02/26/24 12/02/23 History oxybutynin chloride 5 mg 5 mg PO DAILY #30 tabs 11/21/23 02/26/24 Unknown Rx tablet,extended release 24 hr varenicline 1 mg tablet 1 mg PO BID #60 tabs 12/10/23 02/26/24 Unknown Rx amoxicillin 500 mg-potassium 1 tab PO Q12H #14 tabs 02/26/24 02/26/24 Unknown Rx clavulanate 125 mg tablet (Augmentin) fluticasone fur. 100 mcg-umeclid 1 inh inhalation DAILY #60 ea 02/26/24 02/26/24 Unknown Rx 62.5 mcg-vilant 25 mcg inhalat.powder (Trelegy Ellipta) prednisone 10 mg tablet 10 mg PO DAILY #11 tabs 02/26/24 02/26/24 Unknown Rx Allergies Allergy/AdvReac Type Severity Reaction Status Date / Time levofloxacin [From Levaquin] Allergy Intermediate ADR-Abdominal Verified 02/26/24 08:20 Pain Sulfa (Sulfonamide Allergy Intermediate ADR-Blurry Verified 02/26/24 08:20 Antibiotics) Vision nitrofurantoin Allergy Unknown Verified 02/26/24 08:20 PFSH Acute 2 PFSH: Medical History Hypertension Hypothyroidism Left upper lobe pulmonary nodule Fracture of fifth metatarsal bone of right foot Mixed urinary incontinence due to female genital prolapse POP-Q stage 3 cystocele POP-Q stage 2 rectocele Chronic respiratory failure with hypoxia and hypercapnia Fracture of distal end of right fibula Obstructive sleep apnea hypopnea, severe Narcolepsy with cataplexy Non-insulin dependent type 2 diabetes mellitus Pneumonia COPD (chronic obstructive pulmonary disease) Chronic COPD. Chronic smoking. She is aware of the risks of cigarette smoking with COPD. Tobacco use disorder, continuous Chronic post-traumatic stress disorder (PTSD) Bipolar 2 disorder Ovarian cyst Insomnia Bilateral pulmonary embolism -on AC with Eliquis Hepatitis C virus infection cured after antiviral drug therapy Anxiety and depression Spinal stenosis GERD (gastroesophageal reflux disease) Chronic pain Obstructive sleep apnea home cpap but needs bipap Hyperlipidemia Surgical History H/O tubal ligation History of colonoscopy 2019 History of elbow surgery left-2017 Status post left foot surgery H/O section Family History Mother Cancer Breast cancer Diabetes Social History Smoking and tobacco/nicotine status: current every day tobacco/nicotine user (3-4 cigarettes) cigarettes Packs smoked per day: 2.5 Years cigarettes smoked: 41 [ Other cigarette details: started age 9, regular smoker by age 13; currently 1ppd ] Quit status (tobacco/nicotine): considering quitting Second hand smoke exposure: No Alcohol intake: never Substance/Drug Use: never Household members: children Current occupational status: unemployed Vitals/I&O/Wt Last Vital Signs Temp 97.9 F 07/02/24 15:51 Pulse 85 07/02/24 18:00 Resp 17 07/02/24 18:00 BP 92/59 07/02/24 17:46 Pulse Ox 96 07/02/24 18:00 O2 Del Method Nasal Cannula 07/02/24 17:46 O2 Flow Rate 3 07/02/24 17:46 Weight last 48 hrs Weight 106.594 kg Physical Exam 2 Const: COMMON NORMALS: patient oriented x3 and alert GENERAL APPEARANCE: c ooperative ORIENTATION/CONSCIOUSNESS: Yes awake HENMT: COMMON NORMALS: oropharynx normal Neck/C-Spine: COMMON NORMALS: no JVD Resp: AUSCULTATION: rhonchi, wheezes and diminished lung sounds Cardio: COMMON NORMALS: no JVD, regular rhythm, S1 normal heart sound present, S2 normal heart sound present and No murmurs present (Cardio) RHYTHM: regular rhythm HEART SOUNDS: S1 normal heart sound present and S2 normal heart sound present GI: COMMON NORMALS: Normal to inspection, nondistended, normoactive bowel sounds present, Soft to palpation and non-tender PALPATION: Yes Soft to palpation Extremity: COMMON NORMALS: no joint enlargement and no pedal edema Neuro: COMMON NORMALS: patient oriented x3 and moves all extremities S ENSORIUM/ORIENTATION: Yes alert Skin: COMMON NORMALS: no rashes or lesions noted GENERAL SKIN EXAM: no rashes or lesions noted Data 07/02/24 16:23 07/02/24 17:05 Micro: Microbiology 07/02/24 16:56 Blood Culture - Preliminary Blood SPECIMEN COLLECTED 07/02/24 17:05 Blood Culture - Preliminary Blood SPECIMEN COLLECTED A&P Assessment and plan (1) Pneumonia: Left-sided lingular pneumonia complicating COPD exacerbation, with dyspnea, malaise, body aches, fever, chills at home, here leukocytosis 12.15 for review of CBC, reviewed vitals, reviewed CMP, reviewed coronavirus PCR, influenza PCR, RSV PCR, chest x-ray, ER note, discussed with ER provider. Continue antibiotic coverage for pneumonia with ceftriaxone, azithromycin at current time. She is allergic to Levaquin. Collect sputum culture. Collect urine bacterial antigens, urine Legionella antigen. Treat COPD exacerbation. Oxygen support, breathing treatments with DuoNebs. RT assessment and treatment. Follow-up blood culture. (2) Acute exacerbation of chronic obstructive airways disease: COPD with chronic respiratory failure, need for 3 L nasal cannula oxygen at baseline. Need for BiPAP nightly and as needed at baseline. Moderate to severe exacerbation of COPD with cough productive of phlegm worse than usual, dyspnea, wheezing, decreased air entry on exam, complicated by pneumonia as above. Collect sputum culture. Reviewed respiratory viral panel. Continue oxygen support. Continue nightly BiPAP which she uses for COPD and JAS. IV steroids with Solu-Medrol, 30 mg every 6 hours, monitor for risk of hyperglycemia especially with diabetes, hypertension especially with history of hypertension, although blood pressure soft currently, possible adrenal insufficiency, 92/59. Monitor blood pressure with steroid. Monitor for risk of gastritis, encephalopathy. Plan History of PE: Eliquis HTN: Blood pressure soft. Hold antihypertensives. Confirm home medicines Hypothyroidism: Levothyroxine JAS: On nightly BiPAP Smoking addiction, has not smoked in 5 days. Discussed with her smoking cessation for 5 minutes. Encouraged to quit. Discussed risks. At the moment has not been needing nicotine replacement, and if having cravings. Bipolar disorder GERD: PPI DM2: POC glucose checks, sliding scale insulin, consistent carbohydrate diet HLD Attestations 2 Medical Necessity Statement*: Admission of over 2 midnights anticipated for assessment and management of moderate to severe exacerbation of COPD complicated by lingular pneumonia, and a lady with underlying chronic respiratory failure, chronic requirement of 3 L of oxygen, BiPAP requirement. and High MDM includes amount and/or complexity of data reviewed/ordered [ previous or external records, resulted lab(s)/test(s), ordered lab(s)/test(s), independent test interpretation and other healthcare professional discussion] and described risk of complication, morbidity or mortality of management as documented Diagnoses Pneumonia J18.9 Acute exacerbation of chronic obstructive airways disease J44.1
[2024-07-02] MEDS: apixaban 5 mg Tablet PO (21:22)
[2024-07-02] MEDS: sodium chloride 0.9% 1,000 ML 100 ML IV (21:22)
[2024-07-02] MEDS: methylPREDNISolone sod succ 40 mg/mL INJ 30 MG IVP (22:23)
[2024-07-03] VITALS (14 sets, daily range): BP systolic 119–141; BP diastolic 70–82; PULSE 62–86; RESP 16–19; TEMP 36.5–36.7; O2SAT 85–97
[2024-07-03] MEDS: trazodone 100 mg Tablet PO ×2 (00:32→21:20)
[2024-07-03] MEDS: quetiapine XR (24HR) 50 mg Tablet 150 MG PO ×2 (01:17→21:52)
[2024-07-03] MEDS: methylPREDNISolone sod succ 40 mg/mL INJ 30 MG IVP ×3 (04:16→21:20)
[2024-07-03 05:24] LABS: Basophils % 0.1 %; Lymphocytes # 0.6 10^3/uL (0.8-4.8); Lymphocytes % 7.1 %; Mean Corpuscular HGB Conc 31.5 g/dL (30-55); Mean Corpuscular Hemoglobin 30.6 pg (27-33); Mean Platelet Volume 10.7 fL (7.4-10.4); Monocytes # 0.2 10^3/uL (0.2-0.9); Monocytes % 1.7 %; Neutrophils # 8.13 10^3/uL (1.8-7.7); Neutrophils % 90.7 %; Nucleated Red Blood Cells % 0 %; Platelet Count 157 10^3/cmm (157-399); Red Blood Count 4.02 10^6/uL (3.85-5.65); Red Cell Distribution Width 12.4 % (12.1-15.1); White Blood Count 8.97 10^3/uL (3.29-11.43)
[2024-07-03] MEDS: aspirin 81 mg EC Tablet PO (05:31)
[2024-07-03] MEDS: levothyroxine 88 mcg Tablet PO (05:32)
[2024-07-03 05:52] LABS: Alanine Aminotransferase 10 U/L (0-33); Albumin Level 3.4 g/dL (3.5-5.2); Alkaline Phosphatase 84 U/L (35-105); Anion Gap 15.1 (5-19); Aspartate Amino Transferase 8 U/L (0-32); Blood Urea Nitrogen 8 mg/dL (8-23); Calcium 8.9 mg/dL (8.5-10.5); Carbon Dioxide 25 mmol/L (22-29); Chloride 101 mmol/L (98-107); Creatinine Clr Calc Pharmacy 243.6037; Glomerular Filtration Rate 226.9 mL/min (90-130); Glucose 164 mg/dL (65-115); Osmolality Calculated 286 mOsm/kg (285-295); Potassium 4.1 mmol/L (3.5-5.1); Sodium 137 mmol/L (136-145); Total Bilirubin 0.6 mg/dL (0.15-1.2); Total Protein 6.4 g/dL (6.6-8.7)
[2024-07-03] MEDS: apixaban 5 mg Tablet PO ×2 (08:25→21:20)
[2024-07-03] MEDS: pantoprazole DR 40 mg Tablet PO (08:25)
[2024-07-03] MEDS: ipratropium-albuterol 3 mL Neb INHALATION ×3 (08:55→20:22)
--- NOTE | 2024-07-03 10:11 | PC.SOCIAL ---
IMM Update pg 2 of IMM updated and reviewed w/ patient. Copy provided and copy dated, initialed and placed in chart.
--- NOTE | 2024-07-03 10:52 | PC.PHAR ---
pt uses [facility]-they are faxing med list 07/03/24
--- NOTE | 2024-07-03 13:24 | P.PN_ITS ---
Subjective 2 Subjective: She feels she has improved little bit but is not back to her baseline, still coughing, productive cough. Has not had much energy. Has not been getting up. Vitals/I&O/Wt Last Vital Signs Temp 97.7 F 07/03/24 11:15 Pulse 69 07/03/24 11:15 Resp 17 07/03/24 11:15 BP 119/78 07/03/24 11:15 Pulse Ox 94 07/03/24 11:15 O2 Del Method CPAP 07/03/24 11:15 O2 Flow Rate 3 07/03/24 08:56 07/02/24 07/03/24 07/03/24 22:59 06:59 14:59 Intake Total 250 / 250 1000 / 1000 Output Total 1200 / 1200 Balance 250 / 250 -200 / -200 Weight last 48 hrs Weight 104.598 kg Weight 104.5 kg Weight 106.594 kg Physical Exam 2 Const: COMMON NORMALS: patient oriented x3 and alert GENERAL APPEARANCE: c ooperative ORIENTATION/CONSCIOUSNESS: Yes awake HENMT: COMMON NORMALS: oropharynx normal Neck/C-Spine: COMMON NORMALS: no JVD Resp: AUSCULTATION: wheezes OTHER: Coarse wheezy breath sounds. Cardio: COMMON NORMALS: no JVD, regular rhythm, S1 normal heart sound present, S2 normal heart sound present and No murmurs present (Cardio) RHYTHM: regular rhythm HEART SOUNDS: S1 normal heart sound present and S2 normal heart sound present GI: COMMON NORMALS: Normal to inspection, nondistended, normoactive bowel sounds present, Soft to palpation and non-tender PALPATION: Yes Soft to palpation Extremity: COMMON NORMALS: no joint enlargement and no pedal edema Neuro: COMMON NORMALS: patient oriented x3 and moves all extremities S ENSORIUM/ORIENTATION: Yes alert Skin: COMMON NORMALS: no rashes or lesions noted GENERAL SKIN EXAM: no rashes or lesions noted Data 07/03/24 05:10 07/03/24 05:10 Micro: Microbiology 07/03/24 07:10 Legionella Urinary Antigen - Final Urine,Clean Catch Bacterial Antigens - Final 07/02/24 16:56 Blood Culture - Preliminary Blood SPECIMEN COLLECTED 07/02/24 17:05 Blood Culture - Preliminary Blood SPECIMEN COLLECTED A&P Assessment and plan (1) Acute exacerbation of chronic obstructive airways disease: She is feeling somewhat better. Still wheezing, still dyspnea, productive cough. Feeling weak, has not had energy to get up and get around. Reviewed vitals, CBC, CMP, urine bacterial antigens, urine Legionella antigen, negative. Afebrile. No leukocytosis. No sepsis. Continue treatment of COPD exacerbation, pneumonia. Continue IV steroid at current time, antibiotic coverage as below. Continue breathing treatments. Monitor for risk of hyperglycemia, hypertension, monitor blood glucose, blood pressure with IV steroid. Monitor for risk of gastritis, encephalopathy. Discussed with nursing, respiratory therapist, medical case manager. COPD with chronic respiratory failure, need for 3 L nasal cannula oxygen at baseline. Need for BiPAP nightly and as needed at baseline. Moderate to severe exacerbation of COPD with cough productive of phlegm worse than usual, dyspnea, wheezing, decreased air entry on exam, complicated by pneumonia as above. Collect sputum culture. Continue nightly BiPAP which she uses for COPD and JAS. (2) Pneumonia: Continue ceftriaxone, azithromycin. Add incentive spirometer. Add guaifenesin, flutter valve. Stop IV fluid. Left-sided lingular pneumonia complicating COPD exacerbation, with dyspnea, malaise, body aches, fever, chills at home, here leukocytosis 12.15 for review of CBC, reviewed vitals, reviewed CMP, reviewed coronavirus PCR, influenza PCR, RSV PCR, chest x-ray, ER note, discussed with ER provider. Continue antibiotic coverage for pneumonia with ceftriaxone, azithromycin at current time. She is allergic to Levaquin. Collect sputum culture. Collect urine bacterial antigens, urine Legionella antigen. Treat COPD exacerbation. Oxygen support, breathing treatments with DuoNebs. RT assessment and treatment. Follow-up blood culture. Plan Lost IV access, IV access could not be obtained even with ultrasound. Midline catheter requested. History of PE: Eliquis HTN: Blood pressure soft. Hold antihypertensives. Confirm home medicines Hypothyroidism: Levothyroxine JAS: On nightly BiPAP Smoking addiction, has not smoked in 5 days. Discussed with her smoking cessation for 5 minutes. Encouraged to quit. Discussed risks. At the moment has not been needing nicotine replacement, and if having cravings. Bipolar disorder GERD: PPI DM2: POC glucose checks, sliding scale insulin, consistent carbohydrate diet HLD Attestations 2 Medical Necessity Statement*: Continue admission for assessment management of COPD exacerbation, pneumonia. and High MDM includes amount and/or complexity of data reviewed/ordered [ resulted lab(s)/test(s), ordered lab(s)/test(s) and other healthcare professional discussion] and described risk of complication, morbidity or mortality of management as documented Diagnoses Acute exacerbation of chronic obstructive airways disease J44.1 Pneumonia J18.9
--- NOTE | 2024-07-03 14:57 | PICC.NOTE ---
Midline placed to right basilic vein. Referred to vascular access nurse for PICC placement due to poor access. Risks and benefits discussed and informed consent obtained. Right arm assessed with right basilic vein measuring 4.0 mm, straight, and apparent best choice for placement. Using sterile technique and MST, right basilic vein accessed x 1 stick. Mid-arm circumference measured 10 cm from right AC 32 cm. Trimmed cath 10 cm with 0 cm external length noted. Line secured with stat-lock. Insertion site covered with Biopatch, gazue, and TSM. Report given to bedside nurse, PARMJIT Alvarado.
--- NOTE | 2024-07-03 15:30 | PC.NURSE ---
No IV access for morning medication. Order for Midline placed. Rocephin and Solu Medrol was retimed via pharmacy after midline was placed.
[2024-07-03] MEDS: cefTRIAXone 1,000 mg SDV 1000 MG IVP (16:30)
[2024-07-03] MEDS: azithromycin 500 MG in sodium chloride 0.9% 250 ML 250 MG IV (16:36)
[2024-07-03] MEDS: guaiFENesin 600 mg Tablet 1200 MG PO (17:37)
[2024-07-04] VITALS (9 sets, daily range): BP systolic 124–151; BP diastolic 67–82; PULSE 53–87; RESP 15–21; TEMP 36.4–36.8; O2SAT 94–99
[2024-07-04 03:18] LABS: Hematocrit 35.8 % (36-47); Lymphocytes # 0.7 10^3/uL (0.8-4.8); Lymphocytes % 6.8 %; Mean Corpuscular HGB Conc 32.1 g/dL (30-55); Mean Corpuscular Hemoglobin 29.9 pg (27-33); Mean Corpuscular Volume 93.2 fl (85-98); Mean Platelet Volume 11.5 fL (7.4-10.4); Monocytes # 0.3 10^3/uL (0.2-0.9); Neutrophils # 8.76 10^3/uL (1.8-7.7); Neutrophils % 89.8 %; Nucleated Red Blood Cells % 0 %; Platelet Count 194 10^3/cmm (157-399); Red Blood Count 3.84 10^6/uL (3.85-5.65); Red Cell Distribution Width 12.5 % (12.1-15.1); White Blood Count 9.75 10^3/uL (3.29-11.43)
[2024-07-04 03:33] LABS: Anion Gap 11.1 (5-19); Blood Urea Nitrogen 11 mg/dL (8-23); Calcium 8.8 mg/dL (8.5-10.5); Carbon Dioxide 29 mmol/L (22-29); Chloride 101 mmol/L (98-107); Glomerular Filtration Rate 162.8 mL/min (90-130); Glucose 223 mg/dL (65-115); Osmolality Calculated 290 mOsm/kg (285-295); Potassium 4.1 mmol/L (3.5-5.1); Sodium 137 mmol/L (136-145)
[2024-07-04 03:39] LABS: Creatinine Clr Calc Pharmacy 182.7953
[2024-07-04] MEDS: methylPREDNISolone sod succ 40 mg/mL INJ 30 MG IVP ×2 (04:55→07:55)
[2024-07-04] MEDS: levothyroxine 88 mcg Tablet PO (05:00)
[2024-07-04] MEDS: aspirin 81 mg EC Tablet PO (05:00)
[2024-07-04] MEDS: guaiFENesin 600 mg Tablet 1200 MG PO (07:54)
[2024-07-04] MEDS: apixaban 5 mg Tablet PO (07:55)
[2024-07-04] MEDS: pantoprazole DR 40 mg Tablet PO (07:55)
[2024-07-04] MEDS: cefTRIAXone 1,000 mg SDV 1000 MG IVP (07:55)
[2024-07-04] MEDS: ipratropium-albuterol 3 mL Neb INHALATION (08:26)
--- NOTE | 2024-07-04 12:31 | P.DS_ITS ---
Discharge Providers Date of Admission: 07/02/24 17:58 Date of Discharge: July 04, 2024 Attending Provider at Admission: Willard Gomes Attending Provider at Discharge: Willard Gomes Primary Care Provider: OSCAR Hassan Diagnoses at Discharge Discharge Diagnosis (1) Acute exacerbation of chronic obstructive airways disease: Status: Acute (2) Pneumonia: Status: Acute Reason for Visit Reason for Visit: flu like symptoms Brief History: Pleasant 58-year-old lady presented due to persistent, worsening dyspnea, cough productive of phlegm, dyspnea on exertion. She has oxygen at home and uses CPAP at night. She also uses a nebulizer, she has not missed any of her medications, but has not had any improvement. She reports having fever at home. Has had malaise. In ER with tachypnea 22, dyspnea, productive cough, malaise, diminished air entry, rhonchi, wheezing, chest x-ray also with lingular/left lower lobe pneumonia. Hospital Course Hospital Course She was treated with IV Solu-Medrol, ceftriaxone, Zithromycin, breathing treatments, expectorant. COVID, flu, RSV PCR were negative. Sputum culture obtained and pending. Preliminary blood culture negative. Please follow-up pending cultures. Urine bacterial antigens, urine Legionella antigens negative. With treatment her condition gradually improved. Rhonchi resolved, air entry improved. Wheezing improved. She is feeling much better today. She has been able to ambulate in the room. Is at her baseline oxygen level. Feels comfortable returning home. Knows to seek medical attention in case of worsening. She has not seen pulmonology and is referred to establish care. Discharge Data Studies Completed and Pending Completed Studies During Hospitalization Category Date Time Status XR chest 1V portable [id number] Stat Exams 07/02/24 16:02 Completed Pending at discharge Category Date Time Status Basic Metabolic Panel AM LABS Lab 07/05/24 04:00 Ordered Basic Metabolic Panel AM LABS Lab 07/06/24 04:00 Ordered Blood Culture Stat Lab 07/02/24 16:56 Results Complete Blood Count w/Auto AM LABS Lab 07/05/24 04:00 Ordered Sputum Culture and Gram Stain Routine Lab 07/03/24 21:09 Received Radiology Impressions Chest X-Ray 07/02/24 16:02 IMPRESSION: 1. Lingular/left lower lobe pneumonia. ADDENDUM: 07/02/24 2549 The findings were verbally communicated by telephone with Dr. MOYA at 4:43 PM CDT on 07/02/2024. Laboratory Results WBC 9.75 10^3/uL (3.29-11.43) 07/04/24 02:09 RBC 3.84 10^6/uL (3.85-5.65) L 07/04/24 02:09 Hgb 11.50 g/dL (11.27-16.99) 07/04/24 02:09 Hct 35.8 % (36-47) L 07/04/24 02:09 MCV 93.2 fl (85-98) 07/04/24 02:09 MCH 29.9 pg (27-33) 07/04/24 02:09 MCHC 32.1 g/dL (30-55) 07/04/24 02:09 RDW 12.5 % (12.1-15.1) 07/04/24 02:09 Plt Count 194 10^3/cmm (157-399) 07/04/24 02:09 MPV 11.5 fL (7.4-10.4) H 07/04/24 02:09 Neut % (Auto) 89.8 % 07/04/24 02:09 Lymph % (Auto) 6.8 % 07/04/24 02:09 Mcculloch % (Auto) 3.0 % 07/04/24 02:09 Eos % (Auto) 0.0 % 07/04/24 02:09 Baso % (Auto) 0.0 % 07/04/24 02:09 Neut # (Auto) 8.76 10^3/uL (1.8-7.7) H 07/04/24 02:09 Lymph # (Auto) 0.7 10^3/uL (0.8-4.8) L 07/04/24 02:09 Mcculloch # (Auto) 0.3 10^3/uL (0.2-0.9) 07/04/24 02:09 Eos # (Auto) 0.0 10^3/uL (0.0-0.8) 07/04/24 02:09 Baso # (Auto) 0.0 10^3/uL (0.0-0.1) 07/04/24 02:09 Nucleated RBC % (auto) 0 % 07/04/24 02:09 Nucleated RBCs # 0.0 /100WBC 07/04/24 02:09 Sodium 137 mmol/L (136-145) 07/04/24 02:09 Potassium 4.1 mmol/L (3.5-5.1) 07/04/24 02:09 Chloride 101 mmol/L (98-107) 07/04/24 02:09 Carbon Dioxide 29 mmol/L (22-29) 07/04/24 02:09 Anion Gap 11.1 (5-19) 07/04/24 02:09 BUN 11 mg/dL (8-23) 07/04/24 02:09 Creatinine 0.4 mg/dL (0.5-0.9) L 07/04/24 02:09 GFR Calculation 162.8 mL/min (90-130) H 07/04/24 02:09 Glucose 223 mg/dL (65-115) H 07/04/24 02:09 Calculated Osmolality 290 mOsm/kg (285-295) 07/04/24 02:09 Lactic Acid 0.9 mmol/L (0.5-2.2) 07/02/24 17:05 Calcium 8.8 mg/dL (8.5-10.5) 07/04/24 02:09 Magnesium 2.0 mg/dL (1.7-2.3) 07/03/24 05:10 Total Bilirubin 0.6 mg/dL (0.15-1.2) 07/03/24 05:10 AST 8 U/L (0-32) 07/03/24 05:10 ALT 10 U/L (0-33) 07/03/24 05:10 Alkaline Phosphatase 84 U/L (35-105) 07/03/24 05:10 Total Protein 6.4 g/dL (6.6-8.7) L 07/03/24 05:10 Albumin 3.4 g/dL (3.5-5.2) L 07/03/24 05:10 Globulin 3.0 g/dL (1.3-4.6) 07/03/24 05:10 Coronavirus (PCR) Negative (Negative) 07/02/24 16:43 Influenza A (PCR) Negative (Negative) 07/02/24 16:43 Influenza Type B (PCR) Negative (Negative) 07/02/24 16:43 RSV (PCR) Negative (Negative) 07/02/24 16:43 Vitals Last Vital Signs Temp 98.3 F 07/04/24 11:48 Pulse 76 07/04/24 11:48 Resp 16 07/04/24 11:48 BP 136/82 07/04/24 11:48 Pulse Ox 96 07/04/24 11:48 O2 Del Method Nasal Cannula 07/04/24 11:48 O2 Flow Rate 3 07/04/24 08:26 Discharge Plan Discharge Patient Disposition: Home Condition: Stable Prescriptions: New azithromycin 250 mg tablet 250 mg PO DAILY 5 Days Qty: 5 0RF cefdinir 300 mg capsule 300 mg PO BID 5 Days Qty: 10 0RF prednisone 20 mg tablet 20 mg PO DAILY Qty: 19 0RF Rx Instructions: 3 tab daily for 3 days, then 2 tab for 3 days, then 1 tab for 3 days, then 1/2 tab for 2 days. Continued Eliquis 5 mg tablet 5 mg PO BID (DME) cam boot See Rx Instructions .Route .MEDSUPPLY Qty: 1 0RF Rx Instructions: As directed oxybutynin chloride 5 mg tablet extended release 24hr 5 mg PO DAILY Qty: 30 0RF Trelegy Ellipta 100-62.5-25 mcg blister with device 1 inh inhalation DAILY Qty: 60 3RF (DME) CPAP Machine/Supplies See Rx Instructions .Route .MEDSUPPLY Qty: 1 0RF Rx Instructions: Order for CPAP Machine and Supplies (DME) CPAP w/Humidifier, Headgear See Rx Instructions .Route .MEDSUPPLY Qty: 1 0RF Rx Instructions: As directed quetiapine 150 mg tablet extended release 24 hr 150 mg PO BEDTIME Qty: 30 0RF duloxetine [Cymbalta] 60 mg capsule,delayed release(DR/EC) 120 mg PO QAM Qty: 60 0RF varenicline 1 mg tablet 1 mg PO BID Qty: 60 3RF montelukast 10 mg tablet 10 mg PO QAM albuterol sulfate 90 mcg/actuation HFA aerosol inhaler 2 inh INHALATION Q4H PRN (Reason: shortness of breath or wheezing) Qty: 18 0RF gabapentin 300 mg Capsule 300 mg PO TID acetaminophen 500 mg Tablet 1,000 - 1,500 mg PO Q6H PRN (Reason: Pain) levothyroxine 88 mcg tablet 88 mcg PO QAM valsartan 80 mg tablet 80 mg PO QAM azelastine 137 mcg (0.1 %) aerosol,spray 2 spray INTRANASAL BID trazodone 50 mg Tablet 100 mg PO BEDTIME bupropion HCl 150 mg tablet extended release 24 hr 150 mg PO QAM ipratropium-albuterol 0.5 mg-3 mg(2.5 mg base)/3 mL solution for nebulization 3 ml INHALATION QID omeprazole 20 mg capsule,delayed release(DR/EC) 40 mg PO QAM aspirin 81 mg Tablet,Delayed Release (Dr/Ec) 81 mg PO QAM Discharge Orders: Discharge Order (Routine); Ordered 07/04/24 Ordered By: Willard Gomes Referrals: Pulmonary [Provider Group] - 2 weeks Nanette Bush FNP [Primary Care Provider] - 4-7 days Discharge Activity: Oxygen as instructed and Cpap/Bipap as instructed Patient Instructions: Prednisone (By mouth), Azithromycin (By mouth), Cefdinir (By mouth), COPD (Chronic Obstructive Pulmonary Disease) (GEN), Opioid Safety Activity Restrictions/Additional Instructions: Follow-up with your primary provider for reassessment of recovery from COPD, pneumonia. Complete antibiotic course and steroid course. Continue oxygen and CPAP, target oxygen saturation 88-92%. Seek medical attention in case of any worsening or new concerning symptoms. Discharge Attestations Time Spent in Discharge Care*: greater than 30 min Status at Discharge: Cognitive status at discharge: cognitively intact , Behavioral status at discharge: cooperative , Quality Metrics Clinical Quality Measures [ No reported AMI, CVA or VTE this stay] Coding Level of Care Code 40659 Total time (in minutes) for Discharge: 35 Diagnoses Acute exacerbation of chronic obstructive airways disease J44.1 Pneumonia J18.9
--- NOTE | 2024-07-04 13:24 | PC.NURSE ---
This RN went to remove pts midline for discharge. Upon entering the room pt said I removed the tape already because it hurts to bad This RN informed pt to never remove dressings without a nurse present because it is a big risk of infection. Pt verbalized understanding and apologized. This RN removed the midline and discussed dc instructions.
== END 2024-07-04 13:52 | disposition home or self-care (01) | DRG 190 ==
LOC: ER 17:38 → MEDSURG 18:56
PROVIDERS: Admitting Provider Internal Medicine; Emergency Provider Family Medicine; PCP Nurse Practitioner Family; Visit Provider Internal Medicine
DX: J44.0 Chronic obstructive pulmonary disease with (acute) lower respiratory infection (principal); J18.9 Pneumonia, unspecified organism; F31.81 Bipolar II disorder; J96.11 Chronic respiratory failure with hypoxia; J96.12 Chronic respiratory failure with hypercapnia; J44.1 Chronic obstructive pulmonary disease with (acute) exacerbation; Z99.81 Dependence on supplemental oxygen; Z79.899 Other long term (current) drug therapy; Z79.82 Long term (current) use of aspirin; Z79.890 Hormone replacement therapy; Z88.8 Allergy status to other drugs, medicaments and biological substances; I10 Essential (primary) hypertension; E03.9 Hypothyroidism, unspecified; G47.33 Obstructive sleep apnea (adult) (pediatric); E11.9 Type 2 diabetes mellitus without complications; K21.9 Gastro-esophageal reflux disease without esophagitis; E78.5 Hyperlipidemia, unspecified; Z86.711 Personal history of pulmonary embolism; Z79.01 Long term (current) use of anticoagulants; F17.210 Nicotine dependence, cigarettes, uncomplicated; Z11.52 Encounter for screening for COVID-19
CPT/HCPCS: 0241U; 36415; 36569; 71045; 80048; 80053; 83605; 83735; 85025; 86403; 87040; 87070; 87205; 87449; 94640; 94660; 94664; 96365; 96372; 96375; 99285; C1751; J0456; J0696; J1100; J2919; J7030; J7050

== ENCOUNTER 2024-07-21 06:30 | Outpatient (RCR) | payer MEDICARE, MEDICAID, SELFPAY ==
[2020-07-18 17:32] VITALS: BP 115/65; BMI 41.0
== END 2024-08-20 23:59 | disposition home or self-care (01) ==
LOC: SPT 06:30
PROVIDERS: PCP Nurse Practitioner Family; Visit Provider Nurse Practitioner Family
DX: G89.29 Other chronic pain (principal)
CPT/HCPCS: 97110

== ENCOUNTER 2025-05-31 13:28 | Outpatient (CLI) | payer MEDICARE, MEDICAID, SELFPAY ==
[2020-07-18 17:32] VITALS: BP 115/65; BMI 41.0
--- NOTE | 2025-05-31 13:33 | MR_ITS ---
WS: [id number] MRI LUMBAR SPINE NONCONTRAST HISTORY: LUMBAR BACK PAIN W/RADICULOPATHY COMPARISON: 04/21/2019 TECHNIQUE: Sagittal and axial multisequence imaging is submitted. Mild straightening and slight reversal of normal cervical lordosis. Mild anterior compression fractures involving T11, T12 and L1. Marrow edema is noted within the L1 fracture suggesting this is subacute. These fractures were all present on the prior CT of 03/31/2024. 2 mm retropulsion of the posterior superior endplate of T12. The remaining lumbar vertebral bodies are normally aligned. Conus terminates normally at L1-2 disc level. T11-12: Retropulsion superior endplate of T12 encroaching upon the ventral thecal sac. Very mild central, subarticular recess and foraminal stenosis. L1-L2: Diffuse annular disc bulging, mild ligamentum flavum and facet arthritis. No stenosis. L2-L3: Mild annular disc bulging with ligamentum flavum and facet arthritis. Mild disc encroachment upon the subarticular recesses and traversing L3 nerve roots. Disc bulging extends and into the foramina. Mild central, subarticular recess and foraminal stenosis. L3-L4: Diffuse annular disc bulging with ligamentum flavum and facet arthritis. Mild disc contact on the traversing L4 nerve roots. Mild central, subarticular recess and bilateral foraminal stenosis due to disc bulging. L4-L5: Diffuse annular disc bulging with marked ligamentum flavum and facet arthritis. Disc contacts the traversing L5 nerve roots in the subarticular recesses. Moderate central and bilateral foraminal stenosis. Similar to the prior study. L5-S1: Mild annular disc bulging with a central disc protrusion. Central protrusion is new and does contact the S1 nerve roots, LEFT greater than RIGHT. Mild osteophytic ridging. Mild ligamentum flavum and facet arthritis. Disc osteophyte contact also on the exiting L5 nerve roots bilaterally. Paravertebral soft tissues are negative. MR/MR lumbar spine wo con* [id number] IMPRESSION: 1. Progression of degenerative changes and stenoses and facet arthropathy in t he lumbar spine since 2019. 2. New compression fractures at T11, T12 and L1 since 2019. These fractures we re present on a prior CT of 03/31/2024. 3. There is marrow edema in the L1 compression fracture suggest there may be a subacute component. 4. 2 mm retrolisthesis posterior superior endplate of T12. 5. T11-12: Mild central and subarticular recess and foraminal stenosis. 6. L2-3 and L3-4: Mild central, subarticular recess and foraminal stenosis. 7. L4-5: Moderate central, subarticular recess and foraminal stenosis. Mild pr ogression since the prior study. 8. L5-S1: New central disc protrusion contacts the S1 nerve roots, LEFT greate r than RIGHT. Moderate bilateral foraminal stenosis due to disc osteophyte cont act also.
== END 2025-05-31 13:29 | disposition home or self-care (01) ==
LOC: RAD 13:29
PROVIDERS: PCP Family Medicine; Visit Provider Family Medicine
DX: M47.26 Other spondylosis with radiculopathy, lumbar region (principal); M47.896 Other spondylosis, lumbar region; M48.04 Spinal stenosis, thoracic region; M25.78 Osteophyte, vertebrae; M51.27 Other intervertebral disc displacement, lumbosacral region; M48.54XD Collapsed vertebra, not elsewhere classified, thoracic region, subsequent encounter for fracture with routine healing
CPT/HCPCS: 72148

== ENCOUNTER 2025-10-15 11:42 | Emergency (ER) | payer MEDICARE, MEDICAID, SELFPAY ==
[2020-07-18 17:32] VITALS: BP 115/65; BMI 41.0
--- OUTSIDE RECORDS SUMMARY | 2024-04-15 03:00 | XMS_ITS ---
Author Organization [facility] Address [address] [place] [address] Care Team Providers Care Visitor Services Technician Name Role Phone Susan Damon Primary Care Provider [phone] Noah Oakes Unavailable [phone] Migration, Provider Unavailable Unavailable REASON FOR VISIT EMR-Saad Encounters Encounter Location Date Provider Diagnosis Migrated_Facility 0 0 04/15/2024 Provider Migration Obesity, unspecified E66.9 ; Chronic pain due to trauma G89.21 ; Chronic pain syndrome G89.4 ; Other spondylosis with radiculopathy, lumbosacral region M47.27 ; Other cervical disc degeneration, unspecified cervical region M50.30 ; Other intervertebral disc degeneration, lumbar region M51.36 and Unspecified abnormalities of gait and mobility R26.9 Assessments Encounter Date Diagnosis (ICD Code) Assessment Notes Treatment Notes Treatment Clinical Notes Section Notes 04/15/2024 Obesity, unspecified (ICD-10 - E66.9) 04/15/2024 Chronic pain due to trauma (ICD-10 - G89.21) 04/15/2024 Chronic pain syndrome (ICD-10 - G89.4) 04/15/2024 Other spondylosis with radiculopathy, lumbosacral region (ICD-10 - M47.27) 04/15/2024 Other cervical disc degeneration, unspecified cervical region (ICD-10 - M50.30) 04/15/2024 Other intervertebral disc degeneration, lumbar region (ICD-10 - M51.36) 04/15/2024 Unspecified abnormalities of gait and mobility (ICD-10 - R26.9) Plan Of Treatment No Information Progress Notes * Tomeka MARSHALL ADOB:1965 (60 yo F)Acc No.[id number]:04/15/2024 Patient: Tomeka Cotto Provider: Alessio Mcdowell :1965 A ge:58 Y S ex:Female Date:04/15/2024 Address:[address] [place] [address], [id number] Pcp:Susan Damon Subjective: * Chief Complaints: * E MR-Saad Assessment: * Assessment: 1. O besity, unspecified - E66.9 2 . C hronic pain due to trauma - G89.21? 3. C hronic pain syndrome - G89.4 4 . O ther spondylosis with radiculopathy, lumbosacral region - M47.27 5 . O ther cervical disc degeneration, unspecified cervical region - M50.30 6 . O ther intervertebral disc degeneration, lumbar region - M51.36 7 . U nspecified abnormalities of gait and mobility - R26.9 * Electronic signature of Prov ider Migration on 10/15/2025 at 11:47 AM PHILOSOPHY INSTRUCTOR Sign off status: Pending * Provider: Alessio Mcdowell Date: 0 04/15/2024 Generated for Erlin hinton/Savanah/Yadiraitting on: 1 12/16/2024 11:47 AM PHILOSOPHY INSTRUCTOR
--- OUTSIDE RECORDS SUMMARY | 2024-08-15 03:00 | XMS_ITS ---
Author Organization [facility] Address [address] [place] [address] Care Team Providers Care Aluminizer Name Role Phone Susan Damon Primary Care Provider [phone] Noah Oakes Unavailable [phone] Migration, Provider Unavailable Unavailable REASON FOR VISIT EMR-Saad Encounters Encounter Location Date Provider Diagnosis Migrated_Facility 0 0 08/15/2024 Provider Migration Plan Of Treatment No Information Progress Notes * VERONIKATomeka ADOB:1965 (60 yo F)Acc No.[id number]:08/15/2024 Patient: Tomeka DAVENPORT :1965 A ge:58 Y S ex:Female Address:[address] [place] [address] Subjective: * Chief Complaints: * E MR-Saad * * Date:
--- OUTSIDE RECORDS SUMMARY | 2024-08-16 03:00 | XMS_ITS ---
Author Organization [facility] Address [address] [place] [address] Care Team Providers Care Business Services Specialist Sales Name Role Phone Susan Damon Primary Care Provider Noah Oakes Unavailable [phone] Migration, Provider Unavailable Unavailable Allergies Allergen (clinical drug ingredient) Drug/Non Drug Allergy documented on EMR Reaction Allergy Type Onset Date Status Substance with sulfonamide structure and antibacterial mechanism of action (substance) SULFA (SULFONAMIDE ANTIBIOTICS) (uncoded) Unknown Allergy Active Levaquin abdominal pain Drug Allergy Ac tive Substance with sulfonamide structure and antibacterial mechanism of action (substance) Sulfa Antibiotics Unknown Drug Allergy Active REASON FOR VISIT EMR-Saad Medications Medication SIG (Take, Route, Frequency, Duration) Notes Start Date End Date Status Ipratropium Wesley *Pick streng th-form from [facility] for eRX* Active Omeprazole *Pick strength-f orm from [facility] for eRX* Active azelastine *[facility] and Interaction Alerts* Active [facility]elukast *[facility]* Active Levothyroxine *[facility]* Active Eliquis *Pick strength-f orm from [facility] for eRX* Active Acetaminophen *Pick strength-f orm from [facility] for eRX* Active oxyBUTYnin Chloride *Pick streng th-form from [facility] for eRX* Active Calcium 500 *[facility] and Interaction Alerts* Active Arthritis Pain Reliever *Pick strength-form from [facility] for eRX* Active Gabapentin *Pick strength-f orm from [facility] for eRX* Active quetiapine *Reorder from [facility] for eRx and Interaction Alerts* Active Ibuprofen *Pick strength-f orm from [facility] for eRX* Active trazodone *Reorder from [facility] for eRx and Interaction Alerts* Active duloxetine *Reorder from [facility] for eRx and Interaction Alerts* Active Valsartan *Pick strength-f orm from [facility] for eRX* Active Original Nasal Enigma *Reorder fr om [facility] for eRx and Interaction Alerts* Active buPROPion HCl *Pick strength-f orm from [facility] for eRX* Active Social History Social History Additional Details Category Social Info Options Details Migrated Social History Migrated Social History Alcoholic beverages? - No, Currently on disability? - Yes, Involved in any legal proceedings or lawsuits? - No, Marital Status - single, Nonprescription drug use? - No, Participation in detoxification or rehabilitation - No, Smoked in the past? - Yes, Smoking - 1 PPD, Smoking status (MU) - Current everyday smoker, Working currently? - No Encounters Encounter Location Date Provider Diagnosis Migrated_Facility 0 0 08/16/2024 Provider Migration Plan Of Treatment No Information Progress Notes * Tomeka MARSHALL ADOB:1965 (60 yo F)Acc No.[id number]:08/16/2024 Patient: Tomeka DAVENPORT :1965 A ge:58 Y S ex:Female Address:[address] [place] [address] [place] [address] Subjective: * Chief Complaints: * E MR-Saad * Surgical History: Exploratory Since 1983 section Since 2002 Bladder surgery Since 2003 Foot surgery Since 2004 * Family History: M igrated Family History: : Diabetes. * Social History: M igrated Social History: M igrated Social History: Alcoholic beverages? - No, C urrently on disability? - Yes, I nvolved in any legal proceedings or lawsuits? - No, M arital Status - single, N onprescription drug use? - No, P articipation in detoxification or rehabilitation - No, S moked in the past? - Yes, S moking - 1 PPD, S moking status (MU) - Current everyday smoker, W orking currently? - No. * Medications: T akingLevothyroxine , Notes to Pharmacist: *Reorder from [facility] for eRx and Interaction Alerts*azelastine , Notes to Pharmacist: *Reorder from [facility] for eRx and Interaction Alerts*Omeprazole , Notes to Pharmacist: *Pick strength-form from [facility] for eRX*Ibuprofen , Notes to Pharmacist: *Pick strength-form from [facility] for eRX*oxyBUTYnin Chloride , Notes to Pharmacist: *Pick strength-form from [facility] for eRX*montelukast , Notes to Pharmacist: *Reorder from [facility] for eRx and Interaction Alerts*Calcium 500 , Notes to Pharmacist: *Reorder from [facility] for eRx and Interaction Alerts*trazodone , Notes to Pharmacist: *Reorder from [facility] for eRx and Interaction Alerts*Gabapentin , Notes to Pharmacist: *Pick strength-form from [facility] for eRX*quetiapine , Notes to Pharmacist: *Reorder from [facility] for eRx and Interaction Alerts*duloxetine , Notes to Pharmacist: *Reorder from [facility] for eRx and Interaction Alerts*Eliquis , Notes to Pharmacist: *Pick strength-form from [facility] for eRX*buPROPion HCl , Notes to Pharmacist: *Pick strength-form from [facility] for eRX*Acetaminophen , Notes to Pharmacist: *Pick strength-form from [facility] for eRX*Arthritis Pain Reliever , Notes to Pharmacist: *Pick strength- form from [facility] for eRX*Ipratropium Wesley , Notes to Pharmacist: *Pick strength- form from [facility] for eRX*Valsartan , Notes to Pharmacist: *Pick strength-form from [facility] for eRX*Original Nasal Enigma , Notes to Pharmacist: *Reorder from [facility] for eRx and Interaction Alerts*Taking Levothyroxine , Notes to Pharmacist: *Reorder from [facility] for eRx and Interaction Alerts*Taking azelastine , Notes to Pharmacist: *Reorder from [facility] for eRx and Interaction Alerts*Taking Omeprazole , Notes to Pharmacist: *Pick strength-form from [facility] for eRX*Taking Ibuprofen , Notes to Pharmacist: *Pick strength-form from [facility] for eRX*Taking oxyBUTYnin Chloride , Notes to Pharmacist: *Pick strength-form from [facility] for eRX*Taking montelukast , Notes to Pharmacist: *Reorder from [facility] for eRx and Interaction Alerts*Taking Calcium 500 , Notes to Pharmacist: *Reorder from [facility] for eRx and Interaction Alerts*Taking trazodone , Notes to Pharmacist: *Reorder from [facility] for eRx and Interaction Alerts*Taking Gabapentin , Notes to Pharmacist: *Pick strength-form from [facility] for eRX*Taking quetiapine , Notes to Pharmacist: *Reorder from [facility] for eRx and Interaction Alerts*Taking duloxetine , Notes to Pharmacist: *Reorder from [facility] for eRx and Interaction Alerts*Taking Eliquis , Notes to Pharmacist: *Pick strength-form from [facility] for eRX*Taking buPROPion HCl , Notes to Pharmacist: *Pick strength-form from [facility] for eRX*Taking Acetaminophen , Notes to Pharmacist: *Pick strength-form from [facility] for eRX*Taking Arthritis Pain Reliever , Notes to Pharmacist: *Pick strength-form from [facility] for eRX*Taking Ipratropium Wesley , Notes to Pharmacist: *Pick strength-form from [facility] for eRX*Taking Valsartan , Notes to Pharmacist: *Pick strength-form from [facility] for eRX*Taking Original Nasal Enigma , Notes to Pharmacist: *Reorder from [facility] for eRx and Interaction Alerts* * Allergies: S ULFA (SULFONAMIDE ANTIBIOTICS): AllergyLevaquin: abdominal pain - AllergySulfa Antibiotics: Allergy * * Date:
--- OUTSIDE RECORDS SUMMARY | 2024-08-26 07:20 | XMS_ITS ---
Author Organization [facility] Address [address] [place] [address] Care Team Providers Care Director Educational Radio Name Role Phone Susan Damon Primary Care Provider Noah Oakes Unavailable [phone] Santana Kumar Unavailable [phone] Encounters Encounter Location Date Provider Diagnosis [facility] [place] [address] [place] [address] 08/26/2024 Santana Kumar Plan Of Treatment No Information Progress Notes * Tomeka MARSHALL ADOB:1965 (60 yo F)Acc No.[id number]:08/26/2024 Progress Notes Patient: Tomeka Cotto Provider: Ashleigh Kumar D.O. :1965 A ge:58 Y S ex:Female Date:08/26/2024 Address:[address] [place] [address] [id number] Pcp:Susan Damon Billing Information: * Procedure Codes: Care Plan Details* * Electronic signature of aSntana Kumar DO on 10/15/2025 at 11:47 AM RECEIVING LEAD Sign off status: Pending * Provider: Ashleigh Kumar D.O. Date: 10/26/2023 Generated for Printi ng/Faxing/eTransmitting on: 12/16/2024 11:47 AM RECEIVING LEAD
--- OUTSIDE RECORDS SUMMARY | 2024-09-03 05:00 | XMS_ITS ---
Author Organization [facility] Address [address] [place] [address] Care Team Providers Care Strike Off Machine Operator Name Role Phone Susan Damon Primary Care Provider Noah Oakes Unavailable [phone] Elenita Oliva [phone] REASON FOR VISIT 1 month f/u Encounters Encounter Location Date Provider Diagnosis [facility] [address] [address] 09/03/2024 Elenita Oliva Plan Of Treatment No Information Progress Notes * Tomeka MARSHALL ADOB:1965 (60 yo F)Acc No.[id number]:09/03/2024 Progress Notes Patient: Tomeka Cotto Provider: WILL Ferraro :1965 A ge:59 Y S ex:Female Date:09/03/2024 Address:[address] [place] [address] [id number] Pcp:Susan Damon Subjective: * Chief Complaints: * 1 month f/u Billing Information: * Procedure Codes: Care Plan Details* * Electronic signature of Lauren Oliva APRN on 10/15/2025 at 11:47 AM ERP CONSULTANT Sign off status: Pending * Provider: WILL Ferraro Date: 11/03/2023 Generated for Erlin hinton/Savanah/eTransmitting on: 12/16/2024 11:47 AM ERP CONSULTANT
--- OUTSIDE RECORDS SUMMARY | 2025-07-23 02:40 | XMS_ITS ---
Author Organization [facility] Address [address] [place] [address] Care Team Providers Care Hospice Bereavement Coordinator Name Role Phone Susan Damon Primary Care Provider [phone] Noah Oakes Unavailable [phone] Elenita Oliva Unavailable [phone] REASON FOR VISIT [id number]; F/U in Encounters Encounter Location Date Provider Diagnosis On [facility] Of [facility] [address] [place] [address] 07/23/2025 Elenita Oliva Plan Of Treatment No Information Progress Notes * Tomeka MARSHALL ADOB:1965 (60 yo F)Acc No.[id number]:07/23/2025 Progress Notes Patient: Tomeka Cotto Provider: WILL Ferraro :1965 A ge:59 Y S ex:Female Date:07/23/2025 Address:[address] [place] [address] [id number] Pcp:Susan Damon Subjective: * Chief Complaints: * [id number]; F/U in MH Billing Information: * Procedure Codes: Care Plan Details* * Electronic signature of Lauren Oliva APRN on 10/15/2025 at 11:46 AM MEDICAL RECORD RETRIEVAL SPECIALIST Sign off status: Pending * Provider: WILL Ferraro Date: 1 Generated for Erlin hinton/Savanah/eTransmitting on: 1 12/16/2024 11:46 AM MEDICAL RECORD RETRIEVAL SPECIALIST
--- OUTSIDE RECORDS SUMMARY | 2025-10-15 11:47 | XMS_ITS | Patient Health Record ---
Author Organization [facility] Address [address] [place] [address] Care Team Providers Care National [employer]bed [employer] Driver Name Role Phone Susan Damon Primary Care Provider [phone] Noah Oakes Unavailable [phone] Cornel Vann Unavailable [phone] Elenita Oliva Unavailable [phone] Allergies Allergen (clinical drug ingredient) Drug/Non Drug Allergy documented on EMR Reaction Allergy Type Onset Date Status Substance with sulfonamide structure and antibacterial mechanism of action (substance) SULFA (SULFONAMIDE ANTIBIOTICS) (uncoded) Unknown Allergy Active Levaquin abdominal pain Drug Allergy Ac tive Substance with sulfonamide structure and antibacterial mechanism of action (substance) Sulfa Antibiotics Unknown Drug Allergy Active Results Component Value Reference Range Notes zzzMRI Outside CD Reviewed date:09/07/2025 10:47:08 AM Interpretation: Performing Lab: Notes/Report: [id number] Reason For Referral Reason NCV/EMG BUE Diagnosis 1 Numbness of upper ex tremity (R20.0) Referral Organization [facility] [place] Referring Provider First Name Noah Referring Provider Last Name Champ Referring Provider Speciality Neurosurge kamille Referred Provider [facility] ([facility]) Referred Provider Specialty Physical The rapist Referral Priority Routine Reason evaluate and treat b ilateral carpal tunnel - wants [place] location- EMG/NCV ordered Diagnosis 1 Numbness of upper ex tremity (R20.0) Referral Organization [facility] [place] Referring Provider First Name Noah Referring Provider Last Name Champ Referring Provider Speciality Neurosurge ry Referred Provider CORNEL VANN Referred Provider Specialty Orthopedic S urgery Referral Priority Routine Reason Eval and Treat with SCS trial for lumbar pain Diagnosis 1 Degeneration of inte rvertebral disc of lumbosacral region with discogenic back pain (M51.370) Diagnosis 2 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) Diagnosis 3 Lumbar radiculopathy (M54.16) Diagnosis 4 Lumbar facet arthrop athy (M12.88) Diagnosis 5 Lumbar foraminal joselo nosis (M48.061) Diagnosis 6 Bulging lumbar disc (M51.369) Referring Provider First Name Noah Referring Provider Last Name Champ Referring Provider Speciality Neurosurge ry Referred Organization [facility] Referred Provider Santana Kumar Referred Address [address],[address], General Notes Yue Lino 08/31 04:49:13 PM SWITCH[employer] WIRER > ATC not accepting calls at this time Referral Priority Routine Reason Eval and Treat with SCS trial for lumbar pain Diagnosis 1 Lumbar radiculopathy (M54.16) Diagnosis 2 Lumbar foraminal joselo nosis (M48.061) Diagnosis 3 Lumbar facet arthrop athy (M12.88) Diagnosis 4 Bulging lumbar disc (M51.369) Diagnosis 5 Degeneration of inte rvertebral disc of lumbosacral region with discogenic back pain (M51.370) Diagnosis 6 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) Referral Organization [facility] [place] Referring Provider First Name Noah Referring Provider Last Name Champ Referring Provider Speciality Neurosurge ry Referred Provider Santana Kumar Referred Provider Specialty Intervention al Pain Medicine Referral Priority Routine Medications Medication SIG (Take, Route, Frequency, Duration) Notes Start Date End Date Status Levothyroxine Sodium 100 MCG Tablet 1 tablet in the morning on an empty stomach Orally Once a day Active buPROPion HCl ER (XL) 150 MG Tablet Extended Release 24 Hour 1 tablet in the morning Orally Once a day Active Oxygen - Home Use 3L NC continuous Active oxyBUTYnin Chloride *Pick strength-form from [employer] for eRX* Active Original Nasal [place] *Reorder from [employer] for eRx and Interaction Alerts* Not-Taking Zepbound 2.5 MG/0.5ML Solution Auto-injector as directed Subcutaneous Active Ipratropium-Albuter ol 0.5-2.5 (3) MG/3ML Solution 3 ml as needed Inhalation every 6 hrs Not-Taking Ipratropium [place] *[facility]* Not-Taking Ibuprofen *Pick strength-form from [facility] for eRX* Not-Taking Omeprazole 40 mg Capsule Delayed Release TAKE 1 CAPSULE BY MOUTH EVERY DAY 30 MINUTES BEFORE MORNING MEALS; Duration: 30 Active Nebulizer - Device as directed inhalation daily; Duration: 30 days 11/15/2021 Not-Taking Montelukast Sodium 10 mg Tablet TAKE 1 TABLET BY MOUTH EVERY DAY; Duration: 30 Active Modafinil 200 MG Tablet 1 tablet in the morning Orally Once a day Dr. Leon Active Gabapentin 300 mg Capsule TAKE 1 CAPSULE BY MOUTH THREE TIMES DAILY; Duration: 30 Active Eliquis 5 mg Tablet TAKE 1 TABLET BY MOUTH TWO TIMES DAILY; Duration: 30 Active DULoxetine HCl 60 MG Capsule Delayed Release Sprinkle 2 capsule in AM Orally Once a day [facility] Active CPAP Machine By Mouth/Nose Nightly Active Acetaminophen *Pick strength-form [facility]* Not-Taking Valsartan 80 MG Tablet 1 tablet Orally Once a day; Duration: 30 day(s) 03/20/2022 Active Trelegy Ellipta 100-62.5-25 MCG/ACT Aerosol Powder Breath Activated 1 puff Inhalation twice a day Active traZODone HCl 50 mg Tablet TAKE 1 TABLET BY MOUTH EVERY DAY AT BEDTIME if needed FOR insomnia; Duration: 30 Active Spiriva Respimat 2.5 MCG/ACT Aerosol Solution USE TWO PUFFS ONCE A DAY; Duration: 30 Not-Taking QUEtiapine Fumarate 100 MG Tablet 1 tablet at bedtime Orally Once a day [facility] Active Calcium 500 *Reorder from [facility] for eRx and Interaction Alerts* Not-Taking azelastine *Reorder from [facility] for eRx and Interaction Alerts* Active Arthritis Pain Reliever *Pick strength-form from [facility] for eRX* Not-Taking metFORMIN HCl 500 mg Tablet TAKE 1 TABLET BY MOUTH TWO TIMES DAILY; Duration: 7 Not-Taking Albuterol Sulfate HFA 108 (90 Base) MCG/ACT Aerosol Solution 1 puff as needed for wheezing or SOB Inhalation every 4 hrs; Duration: 30 days Active Albuterol Sulfate (2.5 MG/3ML) 0.083% Nebulization Solution 1 vial prn for SOB Inhalation every 6 hrs; Duration: 30 days Not-Taking Social History Tobacco Use: Social History Observation Description Date Details (start date - stop date) Current Smoker NA - NA Social History Drugs/Alcohol: Social Info Question Answer Notes Alcohol Screen (Audit-C) Did you have a drink containing alcohol in the past year? No Points 0 Interpretation Negative Drugs Have you used drugs other than those for medical reasons in the past 12 months? No Tobacco Use: Social Info Question Answer Notes xTobacco Use/Smoking Are you a current smoker How often do you smoke cigarettes? every day How many cigarettes a day do you smoke? 21-30 Are you interested in quitting? Not ready to quit Additional Details Category Social Info Options Details Drugs/Alcohol: Do you smoke marijuana? Ad mits, Recreational use three times daily Migrated Social History Migrated Social History Alcoholic beverages? - No, Currently on disability? - Yes, Involved in any legal proceedings or lawsuits? - No, Marital Status - single, Nonprescription drug use? - No, Participation in detoxification or rehabilitation - No, Smoked in the past? - Yes, Smoking - 1 PPD, Smoking status (MU) - Current everyday smoker, Working currently? - No Section Notes: Onset smoking was 6 yo with 1 ppd average Onset smoking was 6 yo with 1 ppd average Problems Problem Type SNOMED Code ICD Code Onset Dates Problem Status W/U Status Risk Notes Problem Essential hypertension (44804350) Essential hypertension (I10) Active confirmed Problem Polyneuropathy associated with another disorder (518438813) Polyneuropathy associated with underlying disease (G63) Active confirmed Problem Neuropathy (038811815) Neuropathy (G62.9) Active confirmed Problem COPD - Chronic obstructive pulmonary disease (30069576) Chronic obstructive pulmonary disease, unspecified COPD type (J44.9) Active confirmed Problem Acute exacerbation of chronic obstructive airways disease (519279520) COPD exacerbation (J44.1) Active confirmed Problem Lumbar radiculopathy (523198529) Lumbar radiculopathy (M54.16) Active confirmed Problem Tobacco user (425764534) Cigarette nicotine dependence without complication (F17.210) Active confirmed Problem Type II diabetes mellitus without complication (721941822) Diabetes (E11.9) Active confirmed Problem Lumbar spinal stenosis (44922233) Lumbar foraminal stenosis (M48.061) Active confirmed Problem Arthropathy of lumbar facet joint (989126061) Lumbar facet arthropathy (M12.88) Active confirmed Problem Allergic rhinitis (67226445) Allergic rhinitis, unspecified seasonality, unspecified trigger (J30.9) Active confirmed Problem Gastroesophageal reflux disease (471345492) Gastroesophageal reflux disease, unspecified whether esophagitis present (K21.9) Active confirmed Problem Bulging lumbar disc (M51.369) Active confirmed Problem Degeneration of intervertebral disc of lumbosacral region with discogenic back pain (M51.370) Active confirmed Problem Laxity of ligament (62609194) 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) Active confirmed Vital Signs Heart Rate 64 /min 08/24/2025 Temperature 97.7 degrees Fahrenheit 08/24/2025 Respiratory Rate 18 /min 08/24/2025 Height-cm 167.64 cm 08/24/2025 Oximetry 94 % 08/24/2025 Blood pressure diastolic 78 mm Hg 08/24/2025 Weight-kg 122.47 kg 08/24/2025 Height 66.00 in 08/24/2025 Blood pressure systolic 144 mm Hg 08/24/2025 Weight 270 lbs 08/24/2025 BMI 43.57 kg/m2 08/24/2025 Encounters Encounter Location Date Provider Diagnosis [facility] [place] [address] [place] [id number] 08/24/2025 Noah Oakes Degeneration of intervertebral disc of lumbosacral region with discogenic back pain M51.370 ; Lumbar radiculopathy M54.16 ; Lumbar foraminal stenosis M48.061 ; Lumbar facet arthropathy M12.88 ; Bulging lumbar disc M51.369 ; Ligamentum flavum hypertrophy M24.28 and Numbness of upper extremity R20.0 [facility] [address] [place] [address] 08/30/2025 Noah Oakes Degeneration of intervertebral disc of lumbosacral region with discogenic back pain M51.370 ; Lumbar radiculopathy M54.16 ; Lumbar foraminal stenosis M48.061 ; Lumbar facet arthropathy M12.88 ; Bulging lumbar disc M51.369 and Ligamentum flavum hypertrophy M24.28 [facility] [address] [facility] [place] [address] 08/26/2025 Cornel Vann Assessments Encounter Date Diagnosis (ICD Code) Assessment Notes Treatment Notes Treatment Clinical Notes Section Notes 08/30/2025 Degeneration of intervertebral disc of lumbosacral region with discogenic back pain (ICD-10 - M51.370) 08/24/2025 Degeneration of intervertebral disc of lumbosacral region with discogenic back pain (ICD-10 - M51.370) Imaging, symptoms and clinical findings were reviewed. MRI L spine reveals previous compression fracture L1, T11, T12. L1-2 annular disc bulge, ligamentum flavum hypertrophy, facet arthropathy. L2-3 annular disc bulge, ligamentum flavum hypertrophy, facet arthropathy, disc encroachment upon the subarticular recesses and traversing L3 nerve roots, central and foraminal stenosis. L3-4 annular disc bulge, ligamentum flavum hypertrophy, facet arthropathy, disc contact on the traversing L4 nerve roots. central and bilateral foraminal stenosis. L4-5 annular disc bulge, ligamentum flavum hypertrophy, facet arthropathy, disc contacts the traversing L5 nerve roots in the subarticular recesses, moderate central and bilateral foraminal stenosis. L5-S1 annular disc bulge with central disc protrusion that does contact the S1 nerve roots left greater than right, osteophytic ridging, ligamentum flavum hypertrophy, facet arthropathy, bilateral foraminal stenosis. She has low back pain that radiates through bilateral hips to bilateral lower extremities. She has pain and numbness from posterior thigh to knees. Her disc disease is most pronounced at L5-S1. I suspect the bulk of her symptoms are from L3-S1. We discussed treatment options. She may leave things as they are and continue with symptomatic treatment. Other options include physical therapy, acupuncture, chiropractor and/or injections. She may benefit from a spinal cord stimulator. I explained how the stimulator works and the procedure for placement. Surgery option would be L3-S1 Laminectomy. Surgery was described to the patient along with risks of surgery and recovery expectations. Questions were asked and answered to the patient's satisfaction. She will go home and think about options and call back with a decision. ROS reviewed I Kirstin Smith RN am scribing for, and in the presence of Noah Oakes MD. I, Noah Oakes, personally performed the services described in this documentation, as scribed by Kirstin Smith RN in my presence, and it is both accurate and complete. 08/24/2025 Lumbar radiculopathy (ICD-10 - M54.16) 08/30/2025 Lumbar radiculopathy (ICD-10 - M54.16) 08/30/2025 Lumbar foraminal stenosis (ICD-10 - M48.061) 08/24/2025 Lumbar foraminal stenosis (ICD-10 - M48.061) 08/24/2025 Lumbar facet arthropathy (ICD-10 - M12.88) 08/30/2025 Lumbar facet arthropathy (ICD-10 - M12.88) 08/30/2025 Bulging lumbar disc (ICD-10 - M51.369) 08/24/2025 Bulging lumbar disc (ICD-10 - M51.369) 08/24/2025 Ligamentum flavum hypertrophy (ICD-10 - M24.28) 08/30/2025 Ligamentum flavum hypertrophy (ICD-10 - M24.28) 08/24/2025 Numbness of upper extremity (ICD-10 - R20.0) She mentions previous diagnosis of bilateral carpal tunnel. She is having numbness in bilateral upper extremities. I will order nerve study and refer her to Dr. Vann. She is in agreement. Plan Of Treatment No Information Insurance Providers Payer Name Payer Address Payer Phone Subscriber Number Group Number Insured Name Patient Relationship to Insured Coverage Start Date Coverage End Date [facility] Dual Complete [address] [place] [address] [id number] Tomeka Marshall Self - patient is the insured 4 [place] [address] [place] [address] [id number] Tomeka Marshall Self - patient is the insured [place] [employer] [address] [address] [place] [address] [id number] Tomeka Marshall Self - patient is the insured MD Medicare [address] [address] [place] [address] [id number] Tomeka Marshall Self - patient is the insured Medical (General) History Medical History History ICD Code DM2 Sleep apnea Narcalepsy Bipolar Depression High Blood Pressure Asthma bronchitis Chronic Obstructive Pulmonary Disease (C OPD) Emphysema Home Oxygen Use Anxiety Surgical History Surgery Date(Month/Year) Gallbladder Left foot surgery for plantar fasciitis Exploratory Since 1983 section Since 2002 Bladder surgery Since 2003 Foot surgery Since 2004
--- OUTSIDE RECORDS SUMMARY | 2025-10-15 11:47 | XMS_ITS | Continuity of Care Document ---
Author Organization [facility] Yany Velasquez, [facility] ([facility]) Address [address] [place] [address] Care Team Providers Care Railway Signal Technician Name Role Phone JSARLENE QUEVEDO Primary Care Provider Assessment Encounter Date Assessment Date Assessment LastModified by Organization Details LastModified Time 09/23/2025 09/23/2025 The patient is a 60-year-old female with a history of chronic obstructive pulmonary disease and depression presenting with symptoms of carpal tunnel syndrome and for medication management. Her primary concern is bilateral hand numbness and tingling, consistent with carpal tunnel syndrome, for which a nerve conduction study is indicated to confirm the diagnosis. Her depression remains symptomatic with highs and lows despite a complex regimen of duloxetine, bupropion, and Seroquel. Given the number of psychotropic medications, further adjustments are best managed by a specialist, and a referral back to her psychiatrist is appropriate. For her COPD, she requires albuterol for rescue therapy in addition to her maintenance Trelegy inhaler. Her request for two inhalers per month may face insurance limitations. Her request for nystatin cream for a rash under a skin fold is appropriate for likely intertrigo. A prior attempt to get Zepbound for weight management was denied by insurance, and the self-pay cost is prohibitive for the patient. A burn sustained three weeks prior is healing well without signs of complication. Burn: The burn is healing well and requires no acute intervention. The patient was advised to continue monitoring the area and to follow up if there are any issues. [email or web address] Not available 09/23/2025 15:13:48 Plan of Treatment Reminders Order Date Submit Date Provider Last Modified By Organization Details Last Modified Time Details Appointments None recorded. Lab None recorded. Referral None recorded. Procedures None recorded. Surgeries None recorded. Imaging None recorded. Medication Orders nystatin 100,000 unit/gram topical cream 2024 [facility], [address], [place], [place], [id number], 12:28:32 albuterol sulfate HFA 90 mcg/actuat ion aerosol inhaler 2024 025 [facility], [address], [place], [place], [id number], 12:28:31 Patient TargetsNo targets recorded. Patient Instructions Encounter Date Encounter Id Patient Instructions Last Modified By Organization Details Last Modified Time 09/23/2025 [id number] - We will set yo u up for a nerve conduction study to check the nerves in your hands. - Refills for your albuterol inhaler have been sent to your pharmacy. - Please let our office know if you have any issues getting your medicines from the pharmacy. - Continue to use your Trelegy inhaler every day. - I recommend that you make an appointment with your psychiatrist at [facility] to discuss your depression medications. - Keep watching the burn on your finger and let me know if you have any more problems with it. - Nystatin cream has been prescribed for your skin rash. [email or web address] Not available 09/23/2025 14:46:48 I have set the patient up for a nerve conduction study to evaluate her carpal tunnel symptoms. I sent refills for her albuterol inhaler and advised her to continue her daily Trelegy. I also informed her to contact us if there are any insurance problems with her medication refills. Regarding her depression, I explained that her current medication regimen is quite complex, and I recommended that she follow up with her psychiatrist at [facility] for medication management, as they are better equipped to handle such adjustments. We discussed the previous insurance denial for Zepbound and the high self-pay cost, as well as an alternative online service she could explore on her own. I also examined her finger burn and confirmed that it is healing well. [email or web address] Not available 09/23/2025 14:46:49 Reason for Referral None Reported. Problems Name Problem SNOMED Code Status Onset Date Resolution Date Notes Provider Name and Address Organization Details Recorded Time Viral hepatiti s C 64826370 Active 2022 Anushka zapata [facility] 4 13:32:10 Acquired hypothyr oidism 841796279 Completed 202212/31/2024 Removal Reason: duplicat e Magdalena zapata [facility] 5 14:25:55 Chronic obstruct ela pulmonar y disease 43841714 Active 2022 ROSENDA zapata [facility] 3 12:14:12 Chronic respirat ory failure 22537197 Active 2022 Arlene Cloud MD [address] [place] [address], [phone] , [facility] 5 21:42:24 Hypothyr oidism 86423320 Active 2022 Magdalena zapata [facility] 5 14:24:24 Morbid obesity 819129081 Active 2022 Magdalena zapata [facility] 5 14:24:30 Sleep apnea 35545684 Active 2022 Magdalena zapata [facility] 5 14:24:20 Depressi ve disorder 05626284 Active 2022 ROSENDA zapata [facility] 3 16:01:46 Bipolar disorder 42350764 Active 2022 ROSENDA zapata [facility] 3 16:00:37 Abnormal gait 65197512 Completed 202212/31/2024 Removal Reason: duplicat e Ruddy zapata, [facility] 5 14:15:10 Uterine prolapse 92514566 Completed 202212/31/2024 Magdalena Cobos jodi, [facility] 5 14:23:26 Chronic pain 55455174 Active 2023 Magdalena zapata, [facility] 5 14:22:11 Chronic recurren t major depressi ve disorder 3286310 Active 2023 Magdalena zapata, [facility] 5 14:22:18 Dementia 40201224 Active 2023 Magdalena zapata, [facility] 5 14:22:25 Neuropat hy 156709090 Active 2023 Magdalena zapata, [facility] 5 14:23:58 Incoordi nation 764703411 Active 2023 Ruddy zapata, [facility] 5 14:15:28 Overacti ve urinary bladder 526226253 Completed 202312/31/2024 Magdalena zapata [facility] 5 14:23:51 Hypergly cemia 11611545 Active 2024 Arlene Cloud MD [address] [place] [address], [phone], [facility] 5 11:02:31 Dysuria 15289051 Active 2024 Ruddy zapata [facility] 5 14:15:13 Low back pain 633143125 Active 2024 Arlene Cloud MD [address] [place] [address], [phone], [facility] 5 10:58:52 Abnormal gait 93752216 Active 2024 Ruddy zapata, [facility] 5 14:15:09 Function al gait abnormal ity 17432796655 103 Active 2024 Ruddy zapata, [facility] 5 14:15:17 Muscle pain 73578488 Active 2024 Arlene Cloud MD [address] [place] [address], [address] [place] [address] 5, [facility] 5 15:55:30 Body mass index 40+ - severely obese 345315156 Active 2024 Arlene Cloud MD [address] [place] [address], [phone], [facility] 10:12:28 Cramp 96544624 Active 2024 Arlene Cloud MD [address] [place] [address], [phone], [facility] 10:13:03 Primary gonbeatrizr shakeel gardiner 562067879 Active 2024 Arlene Cloud MD [address] [place] [address], [phone] 5, [facility] 10:16:22 Shakeel stout carpal tunnel syndrome 48043636373 921590 Active 2024 Arlene Cloud MD [address] [place] [address], [phone] 5, [facility] 14:36:56 Candidal intertri go 638302749 Active 2024 Arlene Cloud MD [address] [place] [address], [phone], [facility] 5 15:12:39 Problem Notes None recorded. Procedures Surgical History Date Name Laterality Status Provider Name and Address Organization Details Recorded Time 07/02/20 24 plain X-ray of chest completed [facility] 07/07/2024 11:12:06 06/17/20 24 bone density scan completed [facility] 06/25/2024 16:24:30 06/17/20 24 screening mammography completed [facility] 06/25/2024 16:25:09 section completed [facility] 05/13/2024 10:17:41 cholecystostomy completed [facility] 01/27/2025 11:34:21 procedure on foot completed [facility] 01/27/2025 11:34:38 procedure on elbow completed [facility] 01/27/2025 11:35:04 Imaging Results None recorded. Procedure Notes None recorded. Medical Equipment None Reported. Allergies Allergen ID Allergen Name Allergen Category Reaction Reaction Severity Criticality Documentation Date Start Date Code Code System Note Provider Name and Address Organization Details Recorded Time 24150 codeine sulfate medicatio n Not available Not available Not available 05/18/2023 83316 RxNorm Comme nt: Recor ded 11/29 12:41 PM by Roel Miller e Visit ; Kevin sabillon; Anu chung ce: *; Reaso n: Drug aller gy; ; ROSENDA zapata [facility] 3 09:59:19 89899 sulfameth oxazole / trimethop rim medicatio n Not available Not available Not available 05/18/2023 76945 RxNorm Comme nt: Recor ded 11/29 12:41 PM by Steve Grimm, Offic e Visit ; Kevin sabillon; Anu chung ce: *; Reaso n: Drug aller gy; ; ROSENDA MARROQUIN [facility] 3 09:59:26 653 codeine medicatio n Not available Not available Not available 01/16/2023 2670 RxNorm ROSENDA MARROQUIN [facility] 3 09:59:23 654 Levaquin medicatio n chest pain moderate low 01/16/2023 36225 2 RxNorm Anushka Alcazar [facility] 4 14:11:36 655 sulfabenz amide Not available Not available Not available Not available 01/16/2023 19431 RxNorm Anushkabenita Alcazar [facility] 4 14:11:45 52567 Substance with sulfonami de structure and antibacte rial mechanism of action (substanc e) medicatio n other mild low 12/27/2023 69978 8003 SNOMED pt repor ts going blind on this once and feeli ng weird Anushkabenita Alcazar [facility] 4 14:12:30 48137 levofloxa sánchez medicatio n Not available Not available Not available 09/07/2025 91219 RxNorm Sever e epiga stric pain Not Available radha - External Data Service - prod 5 17:48:21 94468 sulfameth oxazole / trimethop rim medicatio n hives Not available high 09/07/20252010 02393 RxNorm Not Available radha - External Data Service - prod 5 17:48:21 Medications Name Sig Start Date Stop Date Status Note LastModified by Organization Details LastModified Time metformin 500 mg tablet TAKE 1 TABLET BY MOUTH TWO TIMES DAILY 03/20 completed Not Available Not Available Not Available prednison e 10 mg tablet TAKE TWO TABLETS BY MOUTH FOR THREE DAYS, TAKE ONE TABLET BY MOUTH DAILY FOR FIVE DAYS 05/05 completed Not Available Not Available Not Available doxycycli ne hyclate 100 mg capsule TAKE ONE CAPSULE BY MOUTH TWICE DAILY FOR 10 DAYS 01/01 completed Not Available Not Available Not Available ipratropi um 0.5 mg-albute rol 3 mg (2.5 mg base)/3 mL nebulizat ion soln inhale THREE ML (content s of one vial) BY MOUTH via nebulize r FOUR TIMES DAILY 2024 active Not Available Not Available Not Avai lable tizanidin e 2 mg tablet TAKE ONE TABLET BY MOUTH EVERY EIGHT hours NEEDED active Not Available Not Available No t Available trazodone 50 mg tablet TAKE TWO TABLETS BY MOUTH EVERY DAY AT BEDTIME. active Not Available Not Available No t Available cetirizin e 10 mg tablet Take 1 tablet every day by oral route for 90 days. 01/01 completed Not Available Not Available Not Available azithromy sánchez 250 mg tablet TAKE ONE TABLET BY MOUTH DAILY FOR FIVE DAYS. 07/21 completed Not Available Not Available Not Available One Touch Fine Point Lancets 1 EVERYDAY FOR TESTING 03/20 completed Not Available Not Available Not Available fluconazo le 150 mg tablet TAKE 1 TABLET BY MOUTH EVERY DAY 05/05 completed Not Available Not Available Not Available hydrocodo ne 5 mg-acetam inophen 325 mg tablet Take 1 tablet every 6 hours by oral route as needed. 05/31 completed Not Available Not Available Not Available phenazopy ridine 200 mg tablet TAKE 1 TABLET BY MOUTH THREE TIMES DAILY NEEDED 03/20 completed Not Available Not Available Not Available prednison e 20 mg tablet TAKE ONE TABLET BY MOUTH DAILY FOR FIVE DAYS, THEN TAKE TABLET BY MOUTH DAILY FOR FIVE DAYS. 01/01 completed Not Available Not Available Not Available gabapenti n 400 mg capsule TAKE ONE CAPSULE BY MOUTH THREE TIMES DAILY. 2024 active Not Available Not Available Not Avai lable Wellbutri n SR 150 mg tablet, 12 hr sustained -release Take 1 tablet every day by oral route. 03/20 completed Not Available Not Available Not Available valsartan 80 mg tablet TAKE ONE TABLET BY MOUTH EVERY DAY. active Not Available Not Available No t Available Advair Diskus 100 mcg-50 mcg/dose powder for inhalatio n Inhale 1 puff every day by inhalati on route. 05/31 completed Not Available Not Available Not Available metronida zole 500 mg tablet TAKE 1 TABLET BY MOUTH TWICE DAILY 04/16 completed Not Available Not Available Not Available omeprazol e 40 mg capsule,d elayed release take 1 capsule BY MOUTH EVERY DAY 30 minutes before morning meal 07/04 completed Not Available Not Available Not Available doxycycli ne monohydra te 100 mg tablet TAKE ONE TABLET BY MOUTH TWICE DAILY 12/26 completed Not Available Not Available Not Available levothyro xine 100 mcg tablet TAKE ONE TABLET BY MOUTH every DAY active Not Available Not Available No t Available levothyro xine 88 mcg tablet TAKE ONE TABLET BY MOUTH DAILY 01/06 completed DOC, JR/tn Not Available Not Available Not Available modafinil 200 mg tablet TAKE ONE TABLET BY MOUTH TWICE DAILY. active Not Available Not Available No t Available cephalexi n 500 mg capsule TAKE ONE CAPSULE BY MOUTH THREE TIMES DAILY 05/31 completed Not Available Not Available Not Available Blood Glucose Test Strips in vitro test 1 STRIP EVERY DAY 03/20 completed Not Available Not Available Not Available nystatin 100,000 unit/gram topical cream apply TO affected area(s) TWICE DAILY active Not Available Not Available No t Available prednison e 50 mg tablet TAKE 1 TABLET BY MOUTH EVERY DAY 03/05 completed Not Available Not Available Not Available oxybutyni n chloride ER 5 mg tablet,ex tended release 24 hr TAKE ONE TABLET BY MOUTH EVERY DAY. active Not Available Not Available No t Available gabapenti n 300 mg capsule TAKE 1 CAPSULE BY MOUTH THREE TIMES DAILY 02/05 completed increase d to 400mg Not Available Not Available Not Available omeprazol e 20 mg capsule,d elayed release TAKE TWO CAPSULES BY MOUTH DAILY 2024 active Not Available Not Available Not Avai lable budesonid e 0.5 mg/2 mL suspensio n for nebulizat ion INHALE ONE vial via NEBULIZE R TWICE DAILY 01/01 completed Not Available Not Available Not Available monteluka st 10 mg tablet TAKE ONE TABLET BY MOUTH ONCE DAILY. active Not Available Not Available No t Available azelastin e 137 mcg (0.1 %) nasal spray SPRAY TWO SPRAYS TWICE DAILY by intranas al route. 2024 active Not Available Not Available Not Avai lable methylpre dnisolone 4 mg tablets in a dose pack Take as directed on package for 6 days 03/05 completed Not Available Not Available Not Available cefdinir 300 mg capsule TAKE ONE CAPSULE BY MOUTH TWICE DAILY FOR FIVE DAYS. 07/21 completed Not Available Not Available Not Available doxycycli ne hyclate 100 mg tablet TAKE 1 TABLET BY MOUTH TWICE DAILY 03/05 completed Not Available Not Available Not Available lamotrigi ne 100 mg tablet TAKE 1 TABLET BY MOUTH TWICE DAILY IN THE MORNING AND AT BEDTIME 05/05 completed Not Available Not Available Not Available amoxicill in 875 mg-potass ium clavulana te 125 mg tablet TAKE 1 TABLET BY MOUTH EVERY 12 HOURS FOR 7 DAYS 02/17 completed Not Available Not Available Not Available amoxicill in 500 mg-potass ium clavulana te 125 mg tablet TAKE ONE TABLET BY MOUTH EVERY 12 hours 05/05 completed Not Available Not Available Not Available Ventolin HFA 90 mcg/actua tion aerosol inhaler inhale ONE TO TWO puffs BY MOUTH EVERY FOUR TO SIX hours NEEDED active Not Available Not Available No t Available Antacid with Simethico ne 200 mg-200 mg-20 mg/5 mL oral suspensio n daily 05/31 completed Recorded 07/04/20 22 3:45PM by Arlene Cloud MD, Office Visit; Not Available Not Available Not Available bupropion HCl XL 150 mg 24 hr tablet, extended release TAKE ONE TABLET BY MOUTH DAILY EVERY MORNING. active Not Available Not Available No t Available Spiriva with HandiHale r 18 mcg and inhalatio n capsules Inhale 1 capsule every day by inhalati on route. 03/20 completed Not Available Not Available Not Available nitrofura ntoin monohydra te/macroc rystals 100 mg capsule TAKE ONE CAPSULE BY MOUTH EVERY 12 hours FOR SEVEN DAYS 05/05 completed Not Available Not Available Not Available duloxetin e 60 mg capsule,d elayed release take TWO CAPSULES BY MOUTH DAILY active Not Available Not Available No t Available Neurontin three times daily 05/30 completed 11005; Recorded 12/14/19 11:59AM by Rosenda Marroquin (Authori allyson through Arlene Cloud MD), Refill Request; Refill Quantity : 90; Capsule; Not Available Not Available Not Available Multivita mins daily 05/29 completed 0; Recorded 11/29/19 12:41PM by Jen Grimm, Office Visit; Not Available Not Available Not Available THSC Levothyro xine Sodium daily 05/29 completed VO CH/ab; Recorded 07/04/20 22 3:43PM by Arlene Cloud MD, Office Visit; Refill Quantity : 30; Tablet; Not Available Not Available Not Available multivita min 1 TAB EVERYDAY 05/05 completed Not Available Not Available Not Available Advair Diskus daily 05/29 completed Recorded 07/04/20 22 3:42PM by Arlene Cloud MD, Office Visit; Not Available Not Available Not Available Trazodone daily 05/31 completed Recorded 07/04/20 22 3:45PM by Arlene Cloud MD, Office Visit; Not Available Not Available Not Available varenicli ne tartrate 1 mg tablet TAKE ONE TABLET BY MOUTH TWICE DAILY. 01/01 completed Not Available Not Available Not Available diclofena c 1 % topical gel APPLY 4 GRAMS TO THE AFFECTED AREA(S) BY TOPICAL ROUTE 4 TIMES PER DAY 2024 active Not Available Not Available Not Avai lable quetiapin e ER 150 mg tablet,ex tended release 24 hr take ONE TABLET BY MOUTH AT BEDTIME active Not Available Not Available No t Available BillieTomitchell Tejada daily 05/31 completed VO CH/sf; Recorded 11/29/19 12:41PM by Jen Grimm, Office Visit; Refill Quantity : 30; Stick; Not Available Not Available Not Available trazodone ER 150 mg tablet,ex tended release 24 hr Take 1 tablet every day by oral route. 04/16 completed Not Available Not Available Not Available Eliquis 5 mg tablet take ONE TABLET BY MOUTH TWICE DAILY active Not Available Not Available No t Available Eliquis two times daily 05/29 completed Recorded 11/29/19 23 12:41PM by Jen Grimm, Office Visit; Refill Quantity : 60; Tablet; Not Available Not Available Not Available Embrace Blood Glucose daily 05/31 completed Diagnosi s : Diabetes Mellitus 250.00 VO /sf; 38992; Recorded 12/09/19 18 2:01PM by Samara Wolff MA (Authori allyson through Jason Beaulieu DO), Office Visit; Refill Quantity : 0; Not Available Not Available Not Available Spiriva Respimat 2.5 mcg/actua tion solution for inhalatio n INHALE TWO PUFFS ONCE a DAY 03/20 completed Not Available Not Available Not Available Trelegy Ellipta 100 mcg-62.5 mcg-25 mcg powder for inhalatio n Inhale ONE PUFF BY MOUTH EVERY DAY. active Not Available Not Available No t Available FreeStyle Cain 2 Sensor kit 1 patch every 2 weeks as directed 03/20 completed Not Available Not Available Not Available FreeStyle Cain 2 Renovo USE DIRECTED 03/20 completed Not Available Not Available Not Available FreeStyle Cain 2 Sensor every 2 weeks as directed 05/31 completed Recorded 08/06/20 22 1:31PM by Wali Atkinsic al Summary; Refill Quantity : 2; Patch; Not Available Not Available Not Available Zepbound 2.5 mg/0.5 mL subcutane ous pen injector Inject 0.5 ML under the skin EVERY SEVEN DAYS. active Not Available Not Available No t Available Vitals Date Recorded Body height Body mass index (BMI) Body weight Oxygen saturation Inhaled oxygen flow rate Heart rate Respiratory rate Body temperature Systolic And Diastolic Provider Name and Address Organization Details Last Updated DateTime 167.64 cm 44.9 kg/m2 645190. 68 g 94 % 4 L/min 86 /min 24 /min 98.5 [degF] 130/74 mm[Hg] Magdalena [facility] 14:12:02 Social History Question Answer Notes LastModified by Organizat ion Details LastModified Time Tobacco Smoking Status Former Smoker Ruddy zapata [facility] 01/27/2025 11:33:57 Do You Wear A Helmet When Biking? No Information not available 01/16/2023 Are You Blind Or Do You Have Difficulty Seeing? No Information not available 01/16/2023 What Is Your Level Of Caffeine Consumption? Moderate Information not available 01/16/2023 Are You Deaf Or Do You Have Serious Difficulty Hearing? No Information not available 01/16/2023 What Type Of Diet Are You Following? DIABETIC Information not available 01/16/2023 When Did You Quit Smoking? 1-5yearssince lastcigarette Information not available 05/05/2025 What Was The Date Of Your Most Recent Tobacco Screening? 05/05/2025 Information not available 05/05/2025 Do You Use Your Seat Belt Or Car Seat Routinely? Yes Information not available 01/16/2023 At What Age Did You Start Smoking Tobacco? 6 [email or web address] Information not available 07/12/2025 How Much Tobacco Do You Smoke? No [email or web address] Information not available 01/27/2025 Do You Participate In Social Media? Yes Information not available 01/16/2023 Have You Recently Traveled Abroad? No Information not available 01/16/2023 Do You Have Difficulty Walking Or Climbing Stairs? No Information not available 01/16/2023 Are You Currently In School? No Information not available 01/16/2023 Sex: Unknown Functional Status Question Answer Note LastModified by Organizat ion Details LastModified Time Do you use any illicit or recreational drugs? No Information not available 01/16/2023 What is your level of alcohol consumption? Occasional Information not available 01/16/2023 Are you currently employed? No Information not available 01/16/2023 Do you have transportation difficulties? No Information not available 01/16/2023 Are you able to walk independently without assistance or assistive devices? YESWOREST Information not available 01/16/2023 Do you have difficulty doing errands alone? No Information not available 01/16/2023 Are you able to care for yourself independently? Yes Information not available 01/16/2023 Do you have difficulty dressing, bathing, grooming, or toileting? No Information not available 01/16/2023 Mental Status Question Answer Note LastModified by Organization D etails LastModified Time Do you have difficulty concentrating, remembering or making decisions? No Information no t available 01/16/2023 Family History Relationship Description Onset Age of this Age Resolved Age Notes LastModified by Organization Details LastModified Time Brother Alcoholism [email or web address] Not availabl e 01/16/2023 12:16:51 Father Depressive disorder tgregg Not available 2022 12:17:21 Maternal Grandfather Type 2 diabetes mellitus tgregg Not available 2022 12:17:42 Mother Malignant neoplasm of breast tgregg Not available 2022 12:18:01 Medical History Condition Response COPD Y Reflux/GERD Y Hypertension Y Gynecological HistoryNo gynecological history recorded. Obstetrics History GPAL:G 0 P 0 0 0 0 Immunizations Vaccine Type Date Status Note Provider Nam e and Address Organization Details Recorded Time COVID-19, mRNA, LNP-S, PF, 100 mcg/0.5mL dose or 50 mcg/0.25mL dose 1 completed ROSENDA zapata [facility] 04/11/2023 08:45:43 COVID-19, mRNA, LNP-S, PF, 100 mcg/0.5mL dose or 50 mcg/0.25mL dose 1 completed ROSENDA zapata [facility] 04/11/2023 08:45:43 Pneumococcal conjugate PCV20, polysaccharide FBT189 conjugate, adjuvant, PF 3 completed ROSENDA zapata [facility], L[facility]LM[facility]elleCMarcelle 04/11/2023 08:45:43 pneumococcal polysaccharide PPV23 0 completed ROSENDA zapata [facility] 04/11/2023 08:45:43 Influenza, split virus, trivalent, preservative 0 completed ROSENDA zapata, [facility] 04/11/2023 08:45:43 Influenza, split virus, trivalent, preservative 1 completed ROSENDA zapata [facility] 04/11/2023 08:45:43 Influenza, split virus, quadrivalent, PF 3 completed ROSENDASA CARA zapata [facility] 04/11/2023 08:45:43 pneumococcal polysaccharide PPV23 3 completed JOSHUA SAM, [facility] [address] [place] [address], [phone], [facility] 05/13/2024 16:44:00 Influenza, split virus, trivalent, preservative 0 completed Not Available [employer] 05/31/2023 09:50:40 Past Encounters Encounter ID Performer Location Encounter Start Date Encounter Closed Date Diagnosis/Indication Diagnosis SNOMED-CT Code Diagnosis ICD10 Code Diagnosis IMO Codes Diagnosis Note [id number] Arlene Cloud MD [facility] ([facility]) [address] [place] [address] 09/23/2025 14:00:30 09/23/2025 14:57:42 Bilateral carpal tunnel syndrome [id number] G56.03 [id number] A nerve conduction study will be ordered to confirm the diagnosis and guide further management . Chronic ob structive pulmonary disease 21892533 J44.9 Continue Trelegy and oxygen.Ref ills for the albuterol inhaler will be sent to the pharmacy. The patient was advised to continue using her Trelegy inhaler daily. She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
--- OUTSIDE RECORDS SUMMARY | 2025-10-15 11:48 | XMS_ITS | Data Portability ---
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 Lab CMP, serum or plasma 2024 025 MAZIN [facility], [address], [address], [place], [address], 5 11:18:59 CBC 2024 025 [facility], [address], [address], [place], [address], 5 10:41:01 magnesium, serum or plasma 2024 025 [facility], [address] [place] [address] [address], [address], [place], [address], 5 05:30:59 hemoglobin A1C/hemoglo bin total, QN, blood 2024 025 MAZIN [facility], [address], [address], [place], [address], 11:50:13 urinalysis, complete 2024 025 MAZIN [facility], [address], [address], [place], [address], 13:37:18 culture, urine 2024 025 [facility], [address] [place] [address] [address], [address], [place], [address], 5 12:42:14 hemoglobin A1C/hemoglo bin total, QN, blood 2024 025 [facility], [address], [address], [place], [address], 5 15:36:50 lipid panel, blood 2024 025 [facility], [address], [address], [place], [address], 5 14:59:07 CMP, serum or plasma 2024 025 [facility], [address], [address], [place], [address], 5 14:59:11 CBC 2024 025 [facility], [address], [address], [place], [address], 5 14:46:57 thyrotropin , QN, serum or plasma 2024 025 [facility], [address], [address], [place], [address], 15:12:[address] referral 2024 025 [facility] , [address] [place], [address], 5 16:25:43 Procedures None recorded. Surgeries None recorded. Imaging MRI, lumbar spine, w/o contrast 2024 025 [facility] (Scheduling Orders), [address] [place], [address], 17:25:18 Medication Orders nystatin 100,000 unit/gram topical cream 2024 025 [facility], [address] [address], [place], [place], [id number], 12:28:32 albuterol sulfate HFA 90 mcg/actuati on aerosol inhaler 2024 025 [facility], [address] [facility] [address], [place], [place], [id number], 12:28:31 Zepbound 2.5 mg/0.5 mL subcutaneou s pen injector 2024 025 [facility], [address] [facility] [address], [place], [place], [id number], 17:57:51 diclofenac 1 % topical gel 2024 025 [facility], [address] [place] [address] [address], [place], [place], [id number], 12:49:34 tizanidine 2 mg tablet 2024 025 [facility], [address] [place] [address] 4, [place], [place], [id number], 09:32:44 modafinil 200 mg tablet 2024 025 [facility], [address] [place] [address] 4, [place], [place], [id number], 17:57:57 Trelegy Ellipta 100 mcg-62.5 mcg-25 mcg powder for inhalation 2024 025 [facility], [address] [place] [address] [address], [place], [place], [id number], 17:58:04 gabapentin 400 mg capsule 2024 025 [facility], [address] [place] [address] [address], [place], [place], [id number], 17:57:55 modafinil 200 mg tablet 2024 025 [facility], [address] [place] [address] [address], [place], [place], [id number], 14:25:01 Patient TargetsNo targets recorded. Patient Instructions Encounter Date Encounter Id Patient Instructions Last Modified By Organization Details Last Modified Time 09/23/2025 [id number] - We will set yo u up [...] make an appointment with your psychiatrist at [facility] to discuss your depression medications. - Keep [...] she follow up with her psychiatrist at [facility] for medication management, as they are better equipped to handle such adjustments. We discussed the previous insurance denial for [employer] and the high self-pay cost, as well as an alternative online service she could explore on her own. I also examined her finger burn and confirmed that it is healing well. 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, [place], [address], 01/01/2025 13:37:18 01/02/20 25 01/01/2025 URINA LYSIS WITH MICRO glu NEGATI VE Not Available [facility] [address], [place], [address], 01/01/2025 13:37:18 01/02/20 25 01/01/2025 URINA LYSIS WITH MICRO bili NEGATI VE Not Available [facility] [address], [place], [address], 01/01/2025 13:37:18 01/02/20 25 01/01/2025 URINA LYSIS WITH MICRO ket NEGATI VE Not Available [facility] [address], [place], [address], 01/01/2025 13:37:18 01/02/20 25 01/01/2025 URINA LYSIS WITH MICRO S.g 1.025 1.005- 1.025 Not Available [facility] [address], [place], [address], 01/01/2025 13:37:18 01/02/20 25 01/01/2025 URINA LYSIS WITH MICRO pH 7.0 5.0-7. 0 Not Available [facility] [address], [place], [address], 01/01/2025 13:37:18 01/02/20 25 01/01/2025 URINA LYSIS WITH MICRO pro TRACE abnormal Not Available [facility] [address], [place], [address], 01/01/2025 13:37:18 01/02/20 25 01/01/2025 URINA LYSIS WITH MICRO uro 2.0 E.U./D L Not Available [facility] [address], [place], [address], 01/01/2025 13:37:18 01/02/20 25 01/01/2025 URINA LYSIS WITH MICRO nit POSITI VE abnormal Not Available [facility] [address], [place], [address], 01/01/2025 13:37:18 01/02/20 25 01/01/2025 URINA LYSIS WITH MICRO blo NEGATI VE Not Available [facility] [address], [place], [address], 01/01/2025 13:37:18 01/02/20 25 01/01/2025 URINA LYSIS WITH MICRO crissy TRACE abnormal Not Available [facility] [address] [facility] [address], [place], [address], 01/01/2025 13:37:18 01/02/20 25 01/01/2025 URINA LYSIS WITH MICRO WBC 8-10 abnormal Not Available [facility] [address] [facility] [address], [place], [address], 01/01/2025 13:37:18 01/02/20 25 01/01/2025 URINA LYSIS WITH MICRO RBC 1-2 Not Available [facility] [address] [facility] [address], [place], [address], 01/01/2025 13:37:18 01/02/20 25 01/01/2025 URINA LYSIS WITH MICRO epi cells 12-15 abnormal Not Available [facility] [address] [facility] [address], [place], [address], 01/01/2025 13:37:18 01/02/20 25 01/01/2025 URINA LYSIS WITH MICRO bacteria 3+++ MIXED TEX abnormal Not Available [facility] [address] [facility] 1, [place], [address], 01/01/2025 13:37:18 01/02/20 25 01/01/2025 URINA LYSIS WITH MICRO other NG Not Available [facility] [address], [place], [address], 01/01/2025 13:37:18 01/02/20 25 01/01/2025 CBC WBC 4.4 x10 4.0-10 .5 Not Available [facility] [address], [place], [address], 01/01/2025 14:46:57 01/02/20 25 01/01/2025 CBC RBC 4.12 x10 3.50-5 .50 Not Available [facility] [address] [facility] [address], [place], [address], 01/01/2025 14:46:57 01/02/20 25 01/01/2025 CBC HGB 12.8 g/dL 12.0-1 6.0 Not Available [facility] [address] [facility] [address], [place], [address], 01/01/2025 14:46:57 01/02/20 25 01/01/2025 CBC HCT 39.2 % 37.0-4 7.0 Not Available [facility] [address], [place], [address], 01/01/2025 14:46:57 01/02/20 25 01/01/2025 CBC MCV 95.1 fL 80.0-9 9.9 Not Available [facility] [address], [place], [address], 01/01/2025 14:46:57 01/02/20 25 01/01/2025 CBC MCH 31.0 pg 27.0-3 2.0 Not Available [facility] [address] [facility], [place], [address], 01/01/2025 14:46:57 01/02/20 25 01/01/2025 CBC MCHC 32.6 g/dL 32.0-3 6.0 Not Available [facility] [address] [facility] 1, [place], [address], 01/01/2025 14:46:57 01/02/20 25 01/01/2025 CBC RDW 13.1 % 11.5-1 4.5 Not Available [facility] [address] [facility], [place], [address], 01/01/2025 14:46:57 01/02/20 25 01/01/2025 CBC plt 160.8 x10 140.0- 451.0 Not Available [facility] [address] [facility] 1, [place], [address], 01/01/2025 14:46:57 01/02/20 25 01/01/2025 CBC lymphocytes % 32.8 % 20.0-5 0.0 Not Available [facility] [address] [facility], [place], [address], 01/01/2025 14:46:57 01/02/20 25 01/01/2025 CBC granulcytes % 58.1 % 30.0-7 0.0 Not Available [facility] [address] [facility] 1, [place], [address], 01/01/2025 14:46:57 01/02/20 25 01/01/2025 CBC monocytes % 7.7 % 2.0-16 .0 Not Available [facility] [address] [facility] 1, [place], [address], 01/01/2025 14:46:57 01/02/20 25 01/01/2025 CBC granulcytes# 2.6 x10 Not Clair ilable [facility] [address] [facility] 1, [place], [address], 01/01/2025 14:46:57 01/02/20 25 01/01/2025 CBC lymphocytes # 1.5 x10 Not Available [facility] [address] [facility] 1, [place], [address], 01/01/2025 14:46:57 01/02/20 25 01/01/2025 CBC monocytes # 0.3 x10 Not Avai lable [facility] [address] [facility] 1, [place], [address], 01/01/2025 14:46:57 01/02/20 25 01/01/2025 LIPID PROFI LE (FEMA LE) cholesterol 232.0 mg/dL 0.0-20 0.0 high Not Available [facility] [address] [facility] 1, [place], [address], 01/01/2025 14:59:07 01/02/20 25 01/01/2025 LIPID PROFI LE (FEMA LE) trig 153.0 mg/dL 0.0-15 0.0 high Not Available [facility] [address] [facility] 1, [place], [address], 01/01/2025 14:59:07 01/02/20 25 01/01/2025 LIPID PROFI LE (FEMA LE) HDL - direct 43.0 mg/dL >40.0 Not Available [facility] [address] [facility] 1, [place], [address], 01/01/2025 14:59:07 01/02/20 25 01/01/2025 LIPID PROFI LE (FEMA LE) VLDL - direct 30.6 mg/dL Not Available [facility] [address] [facility] 1, [place], [address], 01/01/2025 14:59:07 01/02/20 25 01/01/2025 LIPID PROFI LE (FEMA LE) LDL - direct 158.4 mg/dL 0.0-13 0.0 high Not Available [facility] [address] [facility] 1, [place], [address], 01/01/2025 14:59:07 01/02/20 25 01/01/2025 CMP (FEMA LE) glucose 111.0 mg/dL 60.0-9 9.0 high Not Available [facility] [address] [facility] 1, [place], [address], 01/01/2025 14:59:11 01/02/20 25 01/01/2025 CMP (FEMA LE) BUN (blood urea nitrogen) 6.0 mg/dL 10.0-2 6.0 low Not Available [facility] [address] [facility] 1, [place], [address], 01/01/2025 14:59:11 01/02/20 25 01/01/2025 CMP (FEMA LE) creatinine (serum) 0.6 mg/dL 0.4-1. 5 Not Available [facility] [address] [facility] 1, [place], [address], 01/01/2025 14:59:11 01/02/20 25 01/01/2025 CMP (FEMA LE) BUN/creatini ne ratio 10.00 ratio Not Available [facility] [address] [facility] 1, [place], [address], 01/01/2025 14:59:11 01/02/20 25 01/01/2025 CMP (FEMA LE) eGFR calculated 108.0 Not Available [facility] [address] [facility] 1, [place], [address], 01/01/2025 14:59:11 01/02/20 25 01/01/2025 CMP (FEMA LE) total protein 7.2 g/dL 6.0-8. 5 Not Available [facility] [address] [facility], [place], [address], 01/01/2025 14:59:11 01/02/20 25 01/01/2025 CMP (FEMA LE) total bilirubin 0.7 mg/dL 0.2-1. 3 Not Available [facility] [address] [facility] 1, [place], [address], 01/01/2025 14:59:11 01/02/20 25 01/01/2025 CMP (FEMA LE) albumin 4.3 g/dL 3.5-5. 5 Not Available [facility] [address] [facility] 1, [place], [address], 01/01/2025 14:59:11 01/02/20 25 01/01/2025 CMP (FEMA LE) globulin 2.9 calc Not Available [facility] [address] [facility] 1, [place], [address], 01/01/2025 14:59:11 01/02/20 25 01/01/2025 CMP (FEMA LE) AST (SGOT) 41.0 U/L 0.0-46 .0 Not Available [facility] [address] [facility] 1, [place], [address], 01/01/2025 14:59:11 01/02/20 25 01/01/2025 CMP (FEMA LE) altv (SGPT) 62.0 U/L 13.0-6 9.0 normal Not Available [facility] [address] [facility], [place], [address], 01/01/2025 14:59:11 01/02/20 25 01/01/2025 CMP (FEMA LE) A/G ratio 1.5 ratio Not Available [facility] [address] [facility] [address] [facility] 1, [place], [address], 01/01/2025 14:59:11 01/02/20 25 01/01/2025 CMP (FEMA LE) ALP phos 87.0 U/L 30.0-1 40.0 normal Not Available [facility] [address] [facility], [place], [address], 01/01/2025 14:59:11 01/02/20 25 01/01/2025 CMP (FEMA LE) calcium 9.1 mg/dL 8.4-10 .5 Not Available [facility] [address] [facility], [place], [address], 01/01/2025 14:59:11 01/02/20 25 01/01/2025 CMP (FEMA LE) sodium 138.0 mmol/ L 136.0- 145.0 Not Available [facility] [address] [facility], [place], [address], 01/01/2025 14:59:11 01/02/20 25 01/01/2025 CMP (FEMA LE) potassium 3.9 mmol/ L 3.5-5. 1 Not Available [facility] [address] [facility] 1, [place], [address], 01/01/2025 14:59:11 01/02/20 25 01/01/2025 CMP (FEMA LE) chloride 102.0 mmol/ L 98.0-1 10.0 normal Not Available [facility] [address] [facility], [place], [address], 01/01/2025 14:59:11 01/02/20 25 01/01/2025 CMP (FEMA LE) C02 26.0 mmol/ L 22.0-3 1.0 Not Available [facility] [address] [facility] 1, [place], [address], 01/01/2025 14:59:11 01/02/20 25 01/01/2025 CMP (FEMA LE) anion gap 10.0 calc Not Available [facility] [address] [facility], [place], [address], 01/01/2025 14:59:11 01/02/20 25 01/01/2025 CMP (FEMA LE) osmolality 283.6 calc Not Available [facility] [address] [facility] 1, [place], [address], 01/01/2025 14:59:11 01/02/20 25 01/01/2025 TSH TSH 4.67 uIU/m L 0.49-3 .82 high Not Available [facility] [address] [facility] 1, [place], [address], 01/01/2025 15:12:18 01/02/20 25 01/01/2025 HBA1C hemaglobin A1C 5.4 4.2-6. 5 Not Available [facility] [address] [facility] 1, [place], [address], 01/01/2025 15:36:50 01/02/20 25 01/04/2025 CULTU RE, URINE , ROUTI NE culture, urine, routine SEE NOTE abnormal CULTU RE, URINE , ROUTI NE Micro Numbe r: [id number] Test Statu s: Final Speci men Sourc e: Urine Speci men Quali ty: Adequ ate Resul t: Great er than 100,0 00 CFU/m L of Esche ezekiel a coli E.col i ----- ----- ----- - INT MARYJANE AMOX/ CLAVU LANAT E S 4 AMP/S ULBAC NAYAK S 8 CEFAZ JOANNE NR <=4 2 CEFEP BREANA S <=0.1 2 CEFTA ZIDIM E S <=1 CEFTR IAXON E S <=0.2 5 CIPRO FLOXA SÁNCHEZ S <=0.0 6 GENTA MICIN S <=1 IMIPE NEM S <=0.2 5 LEVOF LOXAC IN S <=0.1 2 MEROP ENEM S <=0.2 5 NITRO FURAN TOIN S <=16 PIP/T AZOBA CTAM S <=4 TRIME THOPR IM/BERRIOS LFA R >=320 S = Susce ptibl e I = Inter media te R = Resis tant NS = Not susce ptibl e SDD = Susce ptibl e Dose Depen dent * = Not Teste d NR = Not Repor ramandeep NN = See Thera py Comme nts THERA PY COMME NTS Note 1: For infec tions other than uncom plica ramandeep UTI cause d by E. coli, K. pneum oniae or P. mirab ilis: Cefaz joanne is resis tant if MARYJANE > or = 8 mcg/m L. (Dist ingui shing susce ptibl e versu s inter media te for isola laura with MARYJANE < or = 4 mcg/m L requi res addit ional testi ng.) Note 2: For uncom plica ramandeep UTI cause d by E. coli, K. pneum oniae or P. mirab ilis: Cefaz joanne is susce ptibl e if MARYJANE <32 mcg/m L and predi cts susce ptibl e to the oral agent s cefac tess, cefdi loreta, cefpo doxim e, cefpr ozil, cefur oxime , cepha lexin and lorac arbef . Not Available [facility] [address] [place], [address], 01/04/2025 12:42:14 05/05/20 25 05/05/2025 HBA1C hemaglobin A1C 5.1 4.2-6. 5 Not Available [facility] [address] [facility] [address], [address], 05/05/2025 11:50:13 07/12/20 25 07/12/2025 CBC WBC 4.4 x10 4.0-10 .5 Not Available [facility] [facility], [place], [address], 07/12/2025 10:41:01 07/12/20 25 07/12/2025 CBC RBC 3.95 x10 3.50-5 .50 Not Available [facility] [address] [facility] 1, [place], [address], 07/12/2025 10:41:01 07/12/20 25 07/12/2025 CBC HGB 12.1 g/dL 12.0-1 6.0 Not Available [facility] [address] [facility] [address] [facility] 1, [place], [address], 07/12/2025 10:41:01 07/12/20 25 07/12/2025 CBC HCT 37.3 % 37.0-4 7.0 Not Available [facility] [address] [facility] [address] [facility] 1, [place], [address], 07/12/2025 10:41:01 07/12/20 25 07/12/2025 CBC MCV 94.5 fL 80.0-9 9.9 Not Available [facility] [address] [facility] 1, [place], [address], 07/12/2025 10:41:01 07/12/20 25 07/12/2025 CBC MCH 30.6 pg 27.0-3 2.0 Not Available [facility] [address] [facility] [address] [facility] 1, [place], [address], 07/12/2025 10:41:01 07/12/20 25 07/12/2025 CBC MCHC 32.4 g/dL 32.0-3 6.0 Not Available [facility] [address] [facility] 1, [place], [address], 07/12/2025 10:41:01 07/12/20 25 07/12/2025 CBC RDW 13.2 % 11.5-1 4.5 Not Available [facility] [address] [address], [place], [address], 07/12/2025 10:41:01 07/12/20 25 07/12/2025 CBC plt 237.2 x10 140.0- 451.0 Not Available [facility] [address] [address], [place], [address], 07/12/2025 10:41:01 07/12/20 25 07/12/2025 CBC lymphocytes % 27.8 % 20.0-5 0.0 Not Available [facility] [address] [address], [place], [address], 07/12/2025 10:41:01 07/12/20 25 07/12/2025 CBC granulcytes % 58.9 % 30.0-7 0.0 Not Available [facility] [address] [address], [place], [address], 07/12/2025 10:41:01 07/12/20 25 07/12/2025 CBC monocytes % 10.8 % 2.0-16 .0 Not Available [facility] [address] [address], [place], [address], 07/12/2025 10:41:01 07/12/20 25 07/12/2025 CBC granulcytes# 2.6 x10 Not Clair ilable [facility] [address] [address], [place], [address], 07/12/2025 10:41:01 07/12/20 25 07/12/2025 CBC lymphocytes # 1.2 x10 Not Available [facility] [address] [address], [place], [address], 07/12/2025 10:41:01 07/12/20 25 07/12/2025 CBC monocytes # 0.5 x10 Not Avai lable [facility] [address] [facility], [place], [address], 07/12/2025 10:41:01 07/12/20 25 07/12/2025 CMP (FEMA LE) glucose 135.0 mg/dL 60.0-9 9.0 high Not Available [facility] [address] [facility], [place], [address], 07/12/2025 11:18:59 07/12/20 25 07/12/2025 CMP (FEMA LE) BUN (blood urea nitrogen) 3.0 mg/dL 10.0-2 6.0 low Not Available [facility] [address] [facility], [place], [address], 07/12/2025 11:18:59 07/12/20 25 07/12/2025 CMP (FEMA LE) creatinine (serum) 0.5 mg/dL 0.4-1. 5 Not Available [facility] [address] [facility], [place], [address], 07/12/2025 11:18:59 07/12/20 25 07/12/2025 CMP (FEMA LE) BUN/creatini ne ratio 6.00 ratio Not Available [facility] [address] [facility] 1, [place], [address], 07/12/2025 11:18:59 07/12/20 25 07/12/2025 CMP (FEMA LE) eGFR calculated 133.3 Not Available [facility] [address] [facility], [place], [address], 07/12/2025 11:18:59 07/12/20 25 07/12/2025 CMP (FEMA LE) total protein 7.6 g/dL 6.0-8. 5 Not Available [facility] [address] [facility], [place], [address], 07/12/2025 11:18:59 07/12/20 25 07/12/2025 CMP (FEMA LE) total bilirubin 0.6 mg/dL 0.2-1. 3 Not Available [facility] [address] [facility] 1, [place], [address], 07/12/2025 11:18:59 07/12/20 25 07/12/2025 CMP (FEMA LE) albumin 4.6 g/dL 3.5-5. 5 Not Available [facility] [address] [facility], [place], [address], 07/12/2025 11:18:59 07/12/20 25 07/12/2025 CMP (FEMA LE) globulin 3.0 calc Not Available [facility] [address] [facility], [place], [address], 07/12/2025 11:18:59 07/12/20 25 07/12/2025 CMP (FEMA LE) AST (SGOT) 27.0 U/L 0.0-46 .0 Not Available [facility] [address] [facility], [place], [address], 07/12/2025 11:18:59 07/12/20 25 07/12/2025 CMP (FEMA LE) altv (SGPT) 25.0 U/L 13.0-6 9.0 normal Not Available [facility] [address] [facility], [place], [address], 07/12/2025 11:18:59 07/12/20 25 07/12/2025 CMP (FEMA LE) A/G ratio 1.5 ratio Not Available [facility] [address] [facility] [address], [place], [address], 07/12/2025 11:18:59 07/12/20 25 07/12/2025 CMP (FEMA LE) ALP phos 88.0 U/L 30.0-1 40.0 normal Not Available [facility] [address] [facility] [address], [place], [address], 07/12/2025 11:18:59 07/12/20 25 07/12/2025 CMP (FEMA LE) calcium 9.5 mg/dL 8.4-10 .5 Not Available [facility] [address] [facility] [address], [place], [address], 07/12/2025 11:18:59 07/12/20 25 07/12/2025 CMP (FEMA LE) sodium 133.0 mmol/ L 136.0- 145.0 low Not Available [facility] [address] [facility] [address], [place], [address], 07/12/2025 11:18:59 07/12/20 25 07/12/2025 CMP (FEMA LE) potassium 4.5 mmol/ L 3.5-5. 1 Not Available [facility] [address] [facility] [address], [place], [address], 07/12/2025 11:18:59 07/12/20 25 07/12/2025 CMP (FEMA LE) chloride 94.0 mmol/ L 98.0-1 10.0 abnormal Not Available [facility] [address] [facility] [address], [place], [address], 07/12/2025 11:18:59 07/12/20 25 07/12/2025 CMP (FEMA LE) C02 33.0 mmol/ L 22.0-3 1.0 high Not Available [facility] [address] [facility] [address], [place], [address], 07/12/2025 11:18:59 07/12/20 25 07/12/2025 CMP (FEMA LE) anion gap 6.0 calc Not Available [facility] [address] [facility] [address], [place], [address], 07/12/2025 11:18:59 07/12/20 25 07/12/2025 CMP (FEMA LE) osmolality 273.8 calc Not Available [facility] [address] [facility] [address], [place], [address], 07/12/2025 11:18:59 07/12/20 25 07/13/2025 MAGNE SIUM magnesium 2.2 mg/dL 1.5-2. 5 normal Not Available [facility] [address] [place], [address], 07/13/2025 05:30:59 05/31/20 25 05/31/2025 MRI, lumba r spine , w/o contr ast No observ ation record ed. [id number] [place] [address] [address] [place], [address], 06/03/2025 15:08:22 Result Notes None recorded. 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LFrancheska 4 13:32:10 Acquired hypothyr oidism 227269395 Completed 202212/31/2024 Removal Reason: Leonidas zapata [facility].L.CMarcelle 5 14:25:55 Chronic obstruct ela pulmonar y disease 86733009 Active [address] [facility].L.CaMrcelle 3 12:14:12 Chronic respirat ory failure 84443423 Active 2022 Arlene Cloud MD [address] [place], [address], [facility] 5 21:42:24 Hypothyr oidism 08219201 Active 2022 Magdalena zapata, [facility] 5 14:24:24 Morbid obesity 224355929 Active 2022 Magdalena zapata, [facility] 5 14:24:30 Sleep apnea 98731534 Active 2022 Magdalena zapata, [facility] 5 14:24:20 Depressi ve disorder 06285464 Active 2022 ROSENDA MARROQUIN [facility], [facility] 3 16:01:46 Bipolar disorder 37616178 Active 2022 ROSENDA MARROQUIN [facility] 3 16:00:37 Abnormal gait 09664135 Completed 202212/31/2024 Removal Reason: Tez Nguyen [facility] 5 14:15:10 Uterine prolapse 49085727 Completed 202212/31/[address] [facility] L.L.CMarcelle 5 14:23:26 Chronic pain 42547072 Active 2023 [facility] 5 14:22:11 Chronic recurren t major depressi ve disorder 1214046 Active 2023 Magdalena zapata, [facility] 5 14:22:18 Dementia 32605367 Active [address] [facility] L.L.CMarcelle 5 14:22:25 Neuropat hy 065685978 Active [address] [facility] 5 14:23:58 Incoor nation 041602917 Active [address] [facility] 5 14:15:28 Overacti ve urinary bladder 428709631 Completed 202312/31/[address] [facility] 14:23:51 Hypergly cemia 27119488 Active 2024 Arlene Cloud MD [address] [place] [address], [address], [facility] 5 11:02:31 Dysuria 60739685 Active [address] [facility] 5 14:15:13 Low back pain 980566388 Active 2024 Arlene Cloud MD [address] [place] [address], [address], [facility] 5 10:58:52 Abnormal gait 50518603 Active [address] [facility] 5 14:15:09 Function al gait abnormal ity 68146535460 103 Active [address] [facility] 5 14:15:17 Muscle pain 45262425 Active 2024 Arlene Cloud MD [address] [place] [address], [address], [facility] 5 15:55:30 Body mass index 40+ - severely obese 631467225 Active 2024 Arlene Cloud MD [address] [place] [address], [address], [facility], L.LMarcelleCMarcelle 10:12:28 Cradc 33953432 Active 2024 Arlene Cloud MD [address] [place] [address], [address], [facility], LWingCMarcelle 10:13:03 Primary gonarthr osis, bettyalix l 014095989 Active 2024 Arlene Cloud MD [address] [place] [address], [address] [place] [address] 5, [facility], Yany 10:16:22 Jason stout carpal tunnel syndrome 56856984763 929352 Active 2024 Arlene Cloud MD [address] [place] [address], [address] [place] [address] 5, [facility], LMarcelleLMarcelleCMarcelle 14:36:56 Candidal intertri go 436382594 Active 2024 Arlene Cloud MD [address] [place] [address], [phone], [facility], L.LMarcelleCMarcelle 15:12:39 Problem Notes None recorded. Procedures Surgical History Date Name Laterality Status Provider Name and Address Organization Details Recorded Time 07/02/20 24 plain X-[facility]/07/2024 11:12:06 06/17/20 24 bone density scan [facility] 06/25/2024 16:24:30 06/17/20 24 screening [facility] 06/25/2024 16:25:[address] 05/13/2024 10:17:41 cholecystostomy completed [facility] L.LMarcelleCMarcelle 01/27/2025 11:34:21 procedure on foot completed [facility], LMarcelleLMarcelleCMarcelle 01/27/2025 11:34:38 procedure on elbow completed [facility], LMarcelleLMarcelleCMarcelle 01/27/2025 11:35:04 Imaging Results None recorded. Procedure Notes None recorded. Medical Equipment None Reported. Allergies Allergen ID Allergen Name Allergen Category Reaction Reaction Severity Criticality Documentation Date Start Date Code Code System Note Provider Name and Address Organization Details Recorded Time 67129 codeine sulfate medicatio n Not available Not available Not available 05/18/2023 42631 RxNorm Comme nt: Recor ded 11/29 12:41 PM by Steve Grimm, Offic e Visit ; Promo ramandeep; Signi fican ce: *; Reaso n: Drug aller gy; ; ROSENDA MARROQUIN [facility] 3 09:59:19 63293 sulfameth oxazole / trimethop rim medicatio n Not available Not available Not available 05/18/2023 06188 RxNorm Comme nt: Recor ded 11/29 12:41 PM by Steve Grimm, Offic e Visit ; Promo ramandeep; Signi ficsteff ce: *; Reaso n: Drug aller gy; ; ROSENDA CARAMain zapata [facility] L.L.CMarcelle 3 09:59:26 653 codeine medicatio n Not available Not available Not available 01/16/2023 2670 RxNorm ROSENDA AVALOSMain zapata [facility] 3 09:59:23 654 Levaquin medicatio n chest pain moderate low 01/16/2023 [address] [facility] L.L.CMarcelle 4 14:11:36 655 sulfabenz amide Not available Not available Not available Not available 01/16/2023 [address] [facility] 4 14:11:45 28978 Substance with sulfonami de structure and antibacte rial mechanism of action (substanc e) medicatio n other mild low 12/27/2023 21767 8003 SNOMED pt repor ts going blind on this once and feeli ng weird Anushka zapata [facility] L.L.CMarcelle 4 14:12:30 25367 levofloxa sánchez medicatio n Not available Not available Not available 09/07/2025 18774 RxNorm Sever e epiga stric pain Not Available [employer] - prod 5 17:48:21 70542 sulfameth oxazole / trimethop rim medicatio n hives Not available high 09/07/20252010 67307 RxNorm Not Available [employer] - prod 5 17:48:21 Medications [...] day by oral route for 90 days. 01/015 completed Not Available Not Available Not Available [...] Available Neurontin three times daily 05/30 completed 32635; Recorded 12/14/19 23 11:59AM by Rosenda Marroquin (Authori zed through Arlene Cloud MD), Refill Request; Refill Quantity : 90; Capsule; Not Available Not Available Not Available Multivita mins daily 05/29 completed 0; Recorded 11/29/19 23 12:41PM by Jen Grimm, Office Visit; Not [...] Not Available Not Available No t Available OneTouch Delica Lancets daily 05/31 completed VO CH/sf; Recorded 11/29/19 23 12:41PM by Jen Grimm, [...] Diagnosi s : Diabetes Mellitus 250.00 VO CH/sf; 73917; Recorded 12/09/19 18 2:01PM by Samara Wolff [...] Not Available Not Available FreeStyle Cain 2 [place] USE DIRECTED 03/20 completed Not Available Not Available Not Available FreeStyle Cain 2 Sensor every 2 weeks as directed 05/31 completed Recorded 08/06/20 22 1:31PM by Dary Atkins Summary; Refill Quantity : 2; Patch; Not Available Not Available Not Available Zepbound 2.5 mg/0.5 mL subcutane ous pen injector Inject 0.5 ML under the skin EVERY SEVEN DAYS. active Not Available Not Available No t Available Vitals Date Recorded Body height Body mass index (BMI) Body weight Body temperature Respiratory rate Oxygen saturation Inhaled oxygen flow rate Heart rate Systolic And Diastolic Provider Name and Address Organization Details Last Updated DateTime 5 167.64 cm 39.6 kg/m2 429541. 93 g 97.2 [degF] 18 /min 91 % 3 L/min 73 /min 136/84 mm[Hg] [facility] 5 12:29:53 Date Recorded Body height Body mass index (BMI) Body weight Respiratory rate Body temperature Heart rate Oxygen saturation Inhaled oxygen flow rate Systolic And Diastolic Provider Name and Address Organization Details Last Updated DateTime 5 167.64 cm 40.5 kg/m2 290504. 38 g 18 /min 97.4 [degF] 80 /min 90 % 3 L/min 152/86 mm[Hg] [facility] 5 11:37:48 Date Recorded Body height Body mass index (BMI) Body weight Oxygen saturation Heart rate Systolic And Diastolic Provider Name and Address Organization Details Last Updated DateTime 5 167.64 cm 42.6 kg/m2 533960. 39 g 94 % 86 /min 118/60 mm[Hg] Mrieya Cobos [facility] L.L.CMarcelle 5 10:16:26 Date Recorded Body height Body mass index (BMI) Body weight Oxygen saturation Inhaled oxygen flow rate Heart rate Respiratory rate Body temperature Provider Name and Address Organization Details Last Updated DateTime 5 167.64 cm 45.5 kg/m2 640693. 05 g 98 % 3 L/min 76 /min 18 /min 97.4 [degF] Magdalena Cobos [facility] 5 09:45:41 Date Recorded Body height Body mass index (BMI) Body weight Oxygen saturation Inhaled oxygen flow rate Heart rate Respiratory rate Body temperature Systolic And Diastolic Provider Name and Address Organization Details Last Updated DateTime 5 167.64 cm 44.9 kg/m2 149522. 68 g 94 % 4 L/min 86 /min 24 /min 98.5 [degF] 130/74 mm[Hg] Magdalena Cobos [facility] 5 14:12:02 Social History Question Answer Notes LastModified by Organizat ion Details LastModified Time Tobacco Smoking Status Former Smoker [facility] 01/27/2025 11:33:57 Do You Wear A Helmet [...] Age Did You Start Smoking Tobacco? 6 Information not available 07/12/2025 How Much Tobacco Do You Smoke? No [email or web address] Information not available 01/27/2025 Do You Participate [...] available 2022 12:18:01 Medical History Condition Response Reflux/GERD Y Hypertension Y COPD Y Gynecological HistoryNo gynecological history recorded. Obstetrics History GPAL:G 0 P 0 0 0 0 Immunizations Vaccine Type Date Status Note Provider Nam e and Address Organization Details Recorded Time COVID-19, mRNA, LNP-S, PF, 100 mcg/0.5mL dose or 50 mcg/0.25mL dose [address] [facility] 04/11/2023 08:45:43 COVID-19, mRNA, LNP-S, PF, 100 mcg/0.5mL dose or 50 mcg/0.25mL dose [address] [facility] 04/11/2023 08:45:43 Pneumococcal conjugate PCV20, polysaccharide [id number] conjugate, adjuvant, PF [address] [facility] 04/11/2023 08:45:43 pneumococcal polysaccharide PPV23 [address] [facility] 04/11/2023 08:45:43 Influenza, split virus, trivalent, preservative [address] [facility] 04/11/2023 08:45:43 Influenza, split virus, trivalent, preservative [address] [facility] 04/11/2023 08:45:43 Influenza, split virus, quadrivalent, PF [address] [facility] 04/11/2023 08:45:43 pneumococcal polysaccharide PPV23 3 completed JOSHUA SAM, [address], [address], [facility] 05/13/2024 16:44:00 Influenza, split virus, trivalent, preservative 0 completed Not Available [facility] 05/31/2023 09:50:40 Past Encounters Encounter ID Performer Location Encounter Start Date Encounter Closed Date Diagnosis/Indication Diagnosis SNOMED-CT Code Diagnosis ICD10 Code Diagnosis IMO Codes Diagnosis Note [id number] Arlene Cloud MD [facility] ([facility]) [address] [place] [phone] 03/20/2023 10:23:24 03/20/2023 12:30:58 Chronic obstructive pulmonary disease 85858122 J44.9 refills provided Allergic rhinitis 051221 04 J30.9 sore throat related to post nasal drainage and underlying allergies Diabetes mellitus 425985 09 E11.42 check a1c off of medication . Chronic re spiratory failure 84322342 J96.10 continue current inhalers. Hypothyroidism 94531116 E03.9 Morbid obesity 588433308 E66.01 Sleep apnea 83622996 G47 .30 Depressive disorder 3548 9007 F32.A Bipolar disorder 6384922 4 F31.9 History of fall 94944608 9 Z91.81 Abnormal gait 75741402 R 26.2 script for walker provided today Long-term oxygen therapy 691673916 Z99.81 we will send order for new portable concentrat or Dependence on enabling machine or device 947843866 Z99.89 [id number] BONG REED [facility] ([facility]) [address] [place] [id number] 5 04/10/2023 16:29:09 04/10/2023 18:13:59 Dysuria 52556110 R30.0 Patient left before being seen for provider. UA was completed and culture collected. [id number] OSCAR MOLINA [facility] ([facility]) [address] [place] [id number] 5 04/15/2023 16:03:29 04/15/2023 19:53:20 Dysuria 26468223 R30.0 Acute cystitis 78012645 N30.00 Pain in right foot 61096 39495 55713 M79.741 [id number] Arlene Cloud MD [facility] ([facility]) [address] [place] [id number] 5 05/31/2023 09:50:23 06/06/2023 19:31:48 Chronic respiratory failure 02312162 J96.10 We will send order with the patient to go to home to obtain oxygen concentrat or. She is currently 88% at rest and improves with oxygen at 3 L. We will also send referral to pulmonary rehab. Abnormal gait 69457556 R 26.9 script for walker provided today Acquired hypothyroidism 020103383 E03.9 Continue current meds Chronic ob structive pulmonary disease 33355423 J44.9 Continue Trelegy Depressive disorder 3548 9007 F32.A Continue current meds [id number] Arlene Cloud MD [facility] ([facility]) [address] [place] [id number] 5 07/17/2023 09:48:15 07/25/2023 13:40:44 Chronic obstructive pulmonary disease 50000481 J44.9 Continue Trelegy. Refill provided for rescue inhaler Uterine prolapse 0934460 5 N81.4 Patient did have significan t uterine motion with Valsalva consistent with prolapsing uterus. We will send referral to Dr. Lanier to discuss options for treatment. Gynecologi c examination 40496966 Z01.419 Pap smear obtained during pelvic exam. Patient has not had 1 for many years. Patient denies abnormal Pap [id number] Arlene Cloud MD [facility] ([facility]) [address] [place] [id number] 5 10/23/2023 15:48:34 10/23/2023 18:47:24 Uterine prolapse 21599539 N81.4 New referral will be sent to gynecology as requested. Chronic pain 17212768 G8 9.29 Referral will be sent to pain management . Acute exac erbation of chronic obstructive pulmonary disease 307771042 J44.1 Treated for exacerbati on with steroids and antibiotic s. Chronic ob structive pulmonary disease 87378862 J44.9 Continue Trelegy. Refill provided for rescue inhaler Diabetes mellitus 486028 09 E11.42 Morbid obesity 275257394 E66.01 Bipolar disorder 8119490 4 F31.9 Chronic re spiratory failure 51790782 J96.10 We will send order with the patient to go to home to obtain oxygen concentrat or. She is currently 88% at rest and improves with oxygen at 3 L. We will also send referral to pulmonary rehab. Acquired hypothyroidism 809061292 E03.9 Depressive disorder 3548 9007 F32.A Sleep apnea 58594836 G47 .30 Chronic re current major depressive disorder 3410413 F33.3 Dementia 43648061 F03.90 Neuropathy 807548131 G63 Abnormal gait 68114895 R 26.2 script for walker provided today Incoordination 471903002 R26.9 History of fall 11735388 9 Z91.81 Long-term oxygen therapy 784733021 Z99.81 we will send order for new portable concentrat or Dependence on enabling machine or device 272181512 Z99.89 [id number] Arlene Cloud MD [facility] ([facility]) [address] [place] [id number] 5 11/27/2023 15:02:00 11/28/2023 09:19:53 Acute urinary tract infection 719406902 N39.0 UA was consistent with infection. Culture pending. Start antibiotic s. [id number] HARRIET CAUSEY PA-C [facility] ([facility]) [address] [place] [id number] 5 12/27/2023 13:34:00 12/27/2023 14:30:07 Dysuria 14912469 R30.0 Acute exac erbation of chronic obstructive pulmonary disease 747868693 J44.1 Acute urin corrie tract infection 735843098 N39.0 [id number] OSCAR HOLGUIN [facility] ([facility]) [address] [place] [id number] 5 02/18/2024 11:24:24 02/18/2024 11:50:50 Acute exacerbation of chronic obstructive pulmonary disease 726213136 J44.1 Continuous oxygen at 3 liters. Pulse ox remains 89-90% which is baseline for patient.Wi ll start on prednisone and z-mahesh.Pt states she has enough nebulizer solution to continue treatments at home.Take meds as prescribed . If you develop fever, increased sob, wheezing, or symptoms worsen then f/u in ER [id number] OSACR ARDON [facility] ([facility]) [address] [place] [id number] 5 05/13/2024 10:00:37 05/13/2024 17:12:10 Adult health examination 753741516 Z00.00 Screening for malignant neoplasm of breast 908288066 Z12.39 Postmenopausal state 764 05119 Z78.0 Acquired hypothyroidism 730186721 E03.9 Diabetes mellitus 209854 09 E11.42 Uterine prolapse 3195460 5 N81.4 Chronic pain 86216693 G8 9.[address] Kumar Smoker [id number] F17.200 She does not wish to quit. [id number] OSCAR ARDON [facility] ([facility]) [address] [place] [id number] 5 05/08/2024 10:49:49 05/08/2024 12:09:19 Dysuria 26948354 R30.0 Low back pain 303748705 M54.50 Tylenol/ib uprofen as needed. [id number] OSCAR ARDON [facility] ([facility]) [address] [place], [place] [address] 07/21/2024 15:03:08 07/27/2024 09:27:32 Pneumonia 937911670 J18.9 [id number] Arlene Cloud MD [facility] ([facility]) [address] [place] [id number] 5 07/28/2024 15:51:43 07/28/2024 16:25:28 Seasonal allergic rhinitis 494623798 J30.2 Patient has signs and symptoms suggestive of underlying allergies. This may be contribute d to the patient's symptoms and presentati on. Recommend starting cetirizine . Continue azelastine Acute exac erbation of chronic obstructive pulmonary disease 837043141 J44.1 Patient was treated appropriat tylor. Complete course of steroids. Chronic re spiratory failure 07053743 J96.10 No changes in the patient's oxygen requiremen t. [id number] OSCAR HOLGUIN [facility] ([facility]) [address] [place] [address] [id number] 5 09/14/2024 16:50:42 09/14/2024 18:47:07 Dysuria 60148573 R30.0 Acute urin corrie tract infection 942146100 N39.0 UA results reviewed and discussed with pt. We will start antibiotic s. Pt will increase oral fluids. Return to office with no improvemen t or any problems. Go to ER with severe worsening or severe problems.W e will obtain urine culture [id number] Arlene Cloud MD [facility] ([facility]) [address] [place] [address] [id number] 5 01/01/2025 12:18:55 01/01/2025 13:41:56 Sleep apnea 33494963 G47.30 Refill provided for modafinil as she has been doing well with this medication . Chronic ob structive pulmonary disease 62471946 J44.9 Continue Trelegy and oxygen. Hypothyroidism 20888196 E03.9 Check thyroid levels today. Morbid obesity 248397805 E66.01 Discussed healthy lifestyle including low-fat/hi gh-fiber diet and encouraged regular exercise. Neuropathy 712873075 G63 Continue gabapentin . Hyperglycemia 93844784 R 73.9 Patient has a history of elevations in her blood sugars we will check an A1c today. Dysuria 17585904 R30.0 Given her urinary symptoms we will obtain UA and culture to evaluate for UTI. Chronic re current major depressive disorder 3219971 F33.3 Continue current mental health medication s. Chronic re spiratory failure 94995032 J96.10 No changes in the patient's oxygen requiremen t. Low back pain 359120019 M54.50 Abnormal gait 64943244 R 26.2 Functional gait abnormality 6654144877 9103 R26.9 History of fall 50269772 9 Z91.81 Long-term oxygen therapy 597918784 Z99.81 Dependence on enabling machine or device 846636883 Z99.89 [id number] Arlene Cloud MD [facility] ([facility]) [address] [place] [address] [id number] 5 01/27/2025 10:58:10 01/27/2025 12:04:57 Muscle pain 06070043 M79.10 Will increase the gabapentin to 400 mg 3 times daily and see how she does with the increased dose. Chronic ob structive pulmonary disease 13683690 J44.9 Continue Trelegy and oxygen. Sleep apnea 14090631 G47 .30 Refill provided for modafinil as she has been doing well with this medication . [id number] Arlene Cloud MD [facility] ([facility]) [address] [place] [address] [id number] 5 05/05/2025 10:03:14 05/05/2025 11:52:03 Abnormal gait 84551973 R26.2 Patient is having difficulty ambulating and would benefit from walker the patient. Prescripti on provided for rollator with seat. Low back pain 434334159 M54.50 M54.16 [id number] Patient is having significan t back pain with some mild weakness noted on exam. Patient would benefit from an MRI for further evaluation . Hyperglycemia 12005279 R 73.9 [id number] Patient has a history of elevations in her blood sugars we will check an A1c today. [id number] Arlene Cloud MD [facility] ([facility]) [address] [place] [address] [id number] 5 07/12/2025 09:23:04 07/12/2025 10:22:53 Body mass index 40+ - severely obese 411233848 E66.01 63192959 Discussed healthy lifestyle including low-fat/hi gh-fiber diet and encouraged regular exercise. Patient would benefit from help with weight loss given her comorbidit ies and the fact that her weight does contribute to her medical issues. We will try to see if Zepbound will be covered by her insurance. Cramp 12687696 R25.2 94165 Check labs including a magnesium for. Will get muscle laxer help with pain. Primary go narthrosis, bilateral 943393663 M17.0 [id number] Utilize diclofenac gel up to 4 times daily to help with knee pain. Chronic re spiratory failure 58945046 J96.10 No changes in the patient's oxygen requiremen t, however she has been having this with breathing. Recommend that we go ahead and get her establishe d with pulmonolog ist [id number] Arlene Cloud MD [facility] ([facility]) [address] [place] [address] [id number] 5 09/23/2025 14:00:30 09/23/2025 14:57:42 Bilateral carpal tunnel syndrome 5720273862 8226380 G56.03 [id number] A nerve conduction study will be ordered to confirm the diagnosis and guide further management . Chronic ob structive pulmonary disease 13943894 J44.9 Continue Trelegy and oxygen.Ref ills for the albuterol inhaler will be sent to the pharmacy. The patient was advised to continue using her Trelegy inhaler daily. She was also told to notify the office if she encounters any issues with her insurance covering the requested quantity of inhalers. Depressive disorder [id number] F32.A The patient is on a complex medication regimen including duloxetine , bupropion, and Seroquel. Due to persistent symptoms and the complexity of her current treatment, the patient was advised to re-establi sh care with her psychiatri st at [facility] for any medication adjustment s. Candidal intertrigo [id number] B37.2 [id number] A prescripti on for nystatin cream will be sent to the pharmacy as requested for a rash located under a skin fold. Morbid obesity [id number] E66.01 Weight Management : The patient was informed that Zepbound was previously not covered by her insurance and remains expensive for self-pay. We discussed the possibilit y of re-trying for authorizat ion with her new insurance after October 21. An alternativ e self-pay option through a service called '[employer]' was mentioned, but it was clarified that the patient would need to pursue this independen tly. Health Concerns Section Related Observation LastModified by Organization Detai ls LastModified Time None Recorded Concern Status LastModified by Organization Details LastModified Time None Recorded Advance Directives Directive None Recorded Payers Insurance Date Sequence Insurance Name Policy Number Policy Saucedo Covered Member ID Saucedo Member ID Guarantor Name 09/21/2025 [place] [facility] ([facility] Tomeka Josue Rolando [id number] Tomeka Josue Rolando 09/07/2025 1 [facility]) Tomeka Josue Rolando [id number] Tomeka Josue Rolando 09/07/2025 1 [employer] (MEDICARE REPLACEMENT/A DVANTAGE - PPO) [id number] Tomeka Josue Rolando [id number] Tomeka Josue Rolando 09/21/2025 2 [place] Tomeka Josue Rolando [id number] Tomeka Josue Rolando 09/07/2025 1 [place] - [place] [id number] Tomeka Josue Rolando [id number] Tomeka Josue Rolando 09/20/2025 1 [facility]) [id number] Tomeka Josue Rolando [id number] Tomeka Josue Rolando Notes Date Note Type Note Provider Name and Address Organization Details Recorded Time 5 text/html This is a 59-year-old female who comes in today for routine follow-up. Patient needs lab work today. Patient has been having issues with pain with urination and increased urinary urgency and frequency. Patient is concerned about UTI today. Patient wants to review her medications. Patient states that overall she is doing fairly well and denies any recent falls. The patient utilizes her oxygen at all times. Patient states that she needs a refill on her potassium refill as it helps her with staying awake through the day. Arlene Cloud MD [address] [place] [address], [phone], [facility] 01/09/2025 10:57:39 5 text/html Here today for f/up to discuss the refill of some of her medicine. Patient feels that she needs to increase her gabapentin to help manage her symptoms. Needs refill on her inhaler for her COPD. Patient states it has been working well. Patient also reports that she never received her modafinil that she has been using for her daytime somnolence. Arlene Cloud MD [address] [place] [address], [phone], [facility] 01/28/2025 15:58:29 5 text/html Back PainReported by PatientHPIFor location, patient reportsradiation to leg rightbut reportslumbar rightandsacral right. For severity, patient reportsworseningandpain level 8/10. For quality, patient reportsdull.ROS as noted in the HPI Patient is here today due to chronic lower back pain. Patient states that she has been doing conservative therapy for greater than 6 weeks and she has not had any change in her symptoms. Patient reports leg weakness and is very concerned about her back.She states she has a constant ache is 4/10 When moving and walking 8/10Nothing relieves the pain. Arlene Cloud MD [address] [place] [address], [phone], [facility] 05/09/2025 20:33:44 5 text/html Musculoskeletal PainReported by PatientHPIFor location, patient reportspain radiating to the foot __andpain radiating to the ankle leftbut reportsbilateral knee. For quality, patient reportssharp(when is she is using her knees). For duration, patient reportspresent for 1-6 months. For context, patient reportsoveruse. For alleviating factors, patient reportschanging position. For aggravating factors, patient reportsmovement/positioning . For adls affected, patient reportswalking,sweeping,mop ping,bathing, andclimbing stairs. For severity, (doesn't drive). patient here for muscle cramps in both legs and abdomin and other parts of her body both knees are really hurting starting a few months ago and is getting worse. Patient is interested in trying to use GLP-1 to lose weight to see if that will help. she is having increased difficulty breathing. Patient is not currently seeing a damascener. Arlene Cloud MD [address] [place] [address], [phone], [facility], [place] 07/18/2025 21:43:31 5 text/html The patient is a 60 year [...] and Seroquel (quetiapine). She has not attended [facility] for therapy in a few years. The [...] noted to be good. Arlene Cloud MD [address] [place] [address], [phone], [facility], [place] 09/23/2025 15:15:27 OBGyn Episode No OBEpisode recorded.
--- NOTE | 2025-10-15 12:04 | CTR_ITS ---
PROCEDURE INFORMATION: Exam: CT Chest With Contrast; Diagnostic Exam date and time: 10/15/2025 1:45 PM Age: 60 years old Clinical indication: Abdominal tenderness; Shortness of breath; Additional Info: hypoxia, wheezing, lower abd pain, diarrhea TECHNIQUE: Imaging protocol: Diagnostic CT of the chest with contrast. Radiation optimization: All CT scans at this facility use at least one of these dose optimization techniques: automated exposure control; mA and/or kV adjustment per patient size (includes targeted exams where dose is matched to clinical indication); or iterative reconstruction. Contrast material: OMNI 350; Contrast volume: 100 ml; Contrast route: INTRAVENOUS (IV); COMPARISON: 1. CT lung screening [id number] 03/31/2024 5:[address] angio chest PE protcl [id number] 04/20/2023 10:47 AM RADIATION DOSE METRICS: Total DLP (mGy-cm): 1648.66 FINDINGS: Lungs: Lungs are adequately aerated. Centrilobular and paraseptal cystic emphysematous lucencies are seen in both upper lobes, worse on the right. Some minimal indeterminate patchy subpleural ground-glass opacities in the right upper lobe although there is some motion artifact. These changes however are not significantly different from March 2024. No suspicious pulmonary nodule/s. No focal consolidation is appreciated. Pleural spaces: Unremarkable. No pneumothorax. No pleural effusion. Heart: Cardiac size is borderline enlarged. Physiologic pericardial fluid. Coronary arteries: Mild three-vessel coronary artery calcifications. Lymph nodes: No supraclavicular, axillary or mediastinal adenopathy. Vasculature: No central pulmonary emboli however peripheral pulmonary emboli can not be evaluated on a 5 mm thick/study. Pulmonary vascularity is normal. Bones/joints: The spine demonstrates mild degenerative changes at multiple levels. There is no acute fracture or dislocation. Moderate to severe old compression fracture at T12, with mild compression at T11 and L1, all unchanged from prior study. No blastic or lytic bone lesions are present. Soft tissues: Soft tissues of the visible body wall demonstrate no masses, ectopic air or fluid collections. COMMENTS: The presence of pulmonary emphysema on CT is an independent risk factor for lung cancer. In the absence of a history or active diagnosis of lung cancer, it is recommended that this patient with emphysema be evaluated for enrollment in a low dose CT lung cancer screening program. PROCEDURE INFORMATION: Exam: CT Abdomen And Pelvis With Contrast Exam date and time: 10/15/2025 1:45 PM Age: 60 years old Clinical indication: Abdominal tenderness; Shortness of breath; Additional Info: hypoxia, wheezing, lower abd pain, diarrhea TECHNIQUE: Imaging protocol: CT of the abdomen and pelvis with contrast. Radiation optimization: All CT scans at this facility use at least one of these dose optimization techniques: automated exposure control; mA and/or kV adjustment per patient size (includes targeted exams where dose is matched to clinical indication); or iterative reconstruction. Contrast material: OMNI 350; Contrast volume: 100 ml; Contrast route: INTRAVENOUS (IV); COMPARISON: 1. CT abdomen pelvis w con* [id number] 05/08/2023 7:[address] abdomen pelvis w con* [id number] 09/02/2022 1:29 AM RADIATION DOSE METRICS: Total DLP (mGy-cm): 1648.66 FINDINGS: Limitations: Moderate respiratory motion artifact is present. Liver: Liver is normal in size. There are no masses. No intrahepatic duct dilatation. Gallbladder and biliary ducts: The gallbladder is surgically absent with some minimal prominence of the common bile duct, not uncommon. Pancreas: Pancreas is unremarkable. There are no masses. No pancreatic duct dilatation. Spleen: Spleen is normal in size and position. Subcentimeter splenic cyst at the inferior tip, unchanged from 2022. There are no solid splenic masses. Adrenal glands: Normal. No mass. Kidneys and ureters: Normal. No hydronephrosis. Stomach and bowel: There is no evidence of bowel obstruction. There is no small bowel wall thickening. There is no gastrointestinal diverticular disease. Possible bowel wall thickening throughout the large intestine, which is largely devoid of stool. Appendix: The appendix is visualized and appears normal. Intraperitoneal space: No free air. No significant fluid collection. Vasculature: Moderate aortic atherosclerosis. No evidence of aneurysm or dissection. There is some ectasia of the common iliac arteries. Lymph nodes: Unremarkable. No enlarged lymph nodes. Urinary bladder: Unremarkable as visualized. Reproductive: Uterus appears normal. Macrocalcifications are present that appear to be adjacent to the right ovary rather than the uterus. Etiology is indeterminate, likely dystrophic and unchanged since 2021. Not likely clinically significant. 2.4 cm cystic mass is seen in the left adnexa which has decreased in size compared with previous study. These can be seen when patient is on hormone replacement therapy however again, due to decreased size not likely clinically significant. Bones/joints: Compression fracture at L1 again noted. Severe degenerative disc disease at L5-S1. No acute fracture. Soft tissues: Soft tissues of the visible body wall demonstrate no masses, ectopic air or fluid collections. CT/CT chest abdpel w/*[id number] IMPRESSION: 1. No acute findings. Centrilobular and paraseptal cystic emphysema. Mild coronary artery disease, borderline cardiomegaly. 2. See separate report for abdomen findings. IMPRESSION: 1. Possible bowel wall thickening throughout the large intestine, which is largely devoid of stool. The lumen is nondistended and this may be due to artifact however mild colitis should be considered. Otherwise negative for acute findings. 2. See separate report for chest findings.
[2025-10-15 12:06] VITALS: BP 144/68; PULSE 69; RESP 18; TEMP 36.8; O2SAT 99; BMI 38.7
--- NOTE | 2025-10-15 12:10 | W.ED.ABDPA2 ---
HPI - Abdominal Pain General: Chief Complaint: Abdominal Pain Stated Complaint: abd pain, n/d Time Seen by Provider: 10/15/25 11:57 Source: patient Mode of arrival: EMS Limitations: no limitations History of Present Illness: Patient is a 60-year-old female with past medical history of anxiety and depression, cholecystectomy, chronic pain, hep C infection, type 2 diabetes, COPD who presents to the emergency department by ambulance complaining of lower abdominal pain beginning about 3 to 4 hours prior to presentation to the hospital. Patient wears oxygen at baseline, currently on 3 L. She is denying any shortness of breath at this time. No chest pain. States that her pain is lower abdomen, has been constant since onset. No urinary symptoms such as dysuria or hematuria. States that she has been having a few episodes of vomiting but mostly diarrhea, no blood reported. Pain does not radiate. Vital stable at this time, morbidly obese female at time of examination nontoxic-appearing. MD elicited complaint: abdominal pain Onset (ago): hour(s) Pain Consistency: constant Location: RLQ, LLQ and Suprapubic Severity: severe Quality: cramping Associated Symptoms: Reports diarrhea, nausea and vomiting; Denies bloating, change in stool character, chills, constipation, dysuria, fever(s) and hematochezia Related Data Home Medications ?Medication ?Instructions ?Recorded ?Confirmed apixaban 5 mg tablet (Eliquis) 5 mg PO BID 02/12/20 09/11/24 montelukast 10 mg tablet 10 mg PO QAM 05/28/20 09/11/24 gabapentin 300 mg capsule 300 mg PO TID 08/25/21 09/11/24 acetaminophen 500 mg tablet 1,000 - 1,500 mg PO Q6H PRN Pain 10/03/21 09/11/24 azelastine 137 mcg (0.1 %) nasal 2 spray intranasal BID 04/19/23 09/11/24 spray levothyroxine 88 mcg tablet 88 mcg PO QAM 04/19/23 09/11/24 valsartan 80 mg tablet 80 mg PO QAM 04/19/23 09/11/24 aspirin 81 mg tablet,delayed 81 mg PO QAM 07/01/23 09/11/24 release ipratropium 0.5 mg-albuterol 3 mg 3 ml inhalation QID 07/01/23 09/11/24 (2.5 mg base)/3 mL nebulization soln omeprazole 20 mg capsule,delayed 40 mg PO QAM 07/01/23 09/11/24 release trazodone 50 mg tablet 100 mg PO BEDTIME 10/07/23 09/11/24 bupropion HCl 150 mg 24 hr tablet, 150 mg PO QAM 07/03/24 09/11/24 extended release Previous Rx's ?Medication ?Instructions ?Recorded albuterol sulfate 90 mcg/actuation 2 inh inhalation Q4H PRN shortness 05/28/20 aerosol inhaler of breath or wheezing #18 grams CPAP Machine/Supplies #1 ea 07/11/22 CPAP w/Humidifier, Headgear #1 ea 07/11/22 cam boot #1 ea 08/14/22 duloxetine 60 mg capsule,delayed 120 mg (2 x 60 mg) PO QAM #60 caps 01/24/23 release (Cymbalta) quetiapine 150 mg tablet,extended 150 mg PO BEDTIME #30 tabs 01/24/23 release 24 hr oxybutynin chloride 5 mg 5 mg PO DAILY #30 tabs 11/21/23 tablet,extended release 24 hr varenicline tartrate 1 mg tablet 1 mg PO BID #60 tabs 12/10/23 fluticasone fur. 100 mcg-umeclid 1 inh inhalation DAILY #60 ea 02/26/24 62.5 mcg-vilant 25 mcg inhalat.powder (Trelegy Ellipta) prednisone 20 mg tablet 20 mg PO DAILY #19 tabs 07/04/24 ondansetron 4 mg disintegrating 4 mg PO TID PRN nausea and 10/15/25 tablet vomiting #30 tabs Allergies Allergy/AdvReac Type Severity Reaction Status Date / Time levofloxacin (From Levaquin) Allergy Intermediate ADR-Abdominal Verified 09/11/24 07:47 Pain Sulfa (Sulfonamide Allergy Intermediate ADR-Blurry Verified 09/11/24 07:47 Antibiotics) Vision nitrofurantoin Allergy Unknown Verified 09/11/24 07:47 Review of Systems General: Reports: 10 or more systems reviewed and unremarkable except in HPI and below Const: Denies: fever(s), chills, change in appetite, change in weight or diaphoresis ENMT: Denies: throat pain or hoarseness Card: Denies: chest pain, palpitations or lightheadedness Resp: Denies: dyspnea, productive cough or wheezing GI: Reports: abdominal pain, nausea, vomiting and diarrhea; Denies: constipation, bloating, change in stool character or hematochezia : Denies: flank pain, difficulty voiding, dysuria, urinary frequency or urinary urgency Musc: Denies: neck pain or back pain Skin/Breast: Denies: rash or new lesions Neuro: Denies: headache(s) or dizziness PFSH ED PFSH: Medical History Hypertension Hypothyroidism Left upper lobe pulmonary nodule Fracture of fifth metatarsal bone of right foot Mixed urinary incontinence due to female genital prolapse POP-Q stage 3 cystocele POP-Q stage 2 rectocele Chronic respiratory failure with hypoxia and hypercapnia Fracture of distal end of right fibula Obstructive sleep apnea hypopnea, severe Narcolepsy with cataplexy Non-insulin dependent type 2 diabetes mellitus Pneumonia COPD (chronic obstructive pulmonary disease) Chronic COPD. Chronic smoking. She is aware of the risks of cigarette smoking with COPD. Tobacco use disorder, continuous Chronic post-traumatic stress disorder (PTSD) Bipolar 2 disorder Ovarian cyst Insomnia Bilateral pulmonary embolism -on AC with Eliquis Hepatitis C virus infection cured after antiviral drug therapy Anxiety and depression Spinal stenosis GERD (gastroesophageal reflux disease) Chronic pain Obstructive sleep apnea home cpap but needs bipap Hyperlipidemia Surgical History H/O tubal ligation History of colonoscopy 2019 History of elbow surgery left-2017 Status post left foot surgery H/O section Family History Mother Cancer Breast cancer Diabetes Social History Smoking and tobacco/nicotine status: current every day tobacco/nicotine user (3-4 cigarettes) cigarettes Packs smoked per day: 2.5 Years cigarettes smoked: 41 [ Other cigarette details: started age 9, regular smoker by age 13; currently 1ppd ] Quit status (tobacco/nicotine): considering quitting Second hand smoke exposure: No Alcohol intake: never Substance/Drug Use: never Household members: children Current occupational status: unemployed Physical Exam Const: COMMON NORMALS: patient oriented x3, no limitations, alert and well nourished GENERAL APPEARANCE: cooperative ORIENTATION/CONSCIOUSNESS: Yes awake OTHER: Morbidly obese female, nontoxic appearing Neck/C-Spine: COMMON NORMALS: full ROM, supple, no meningeal signs and no JVD Resp: COMMON NORMALS: normal respiratory effort, No retractions, No use of accessory muscles and clear to auscultation bilaterally AUSCULTATION: clear to auscultation bilaterally, no crackles, no rales, no rhonchi and no wheezes Cardio: COMMON NORMALS: no JVD, regular rate, regular rhythm, No gallops present (Cardio), No clicks present (Cardio), No murmurs present (Cardio) and No rub (Cardio) RATE: regular rate RHYTHM: regular rhythm GI: COMMON NORMALS: Soft to palpation and no masses INSPECTION: Yes central obesity PALPATION: Yes Soft to palpation OTHER: Very large abdomen, endorsing tender to palpation to general lower abdomen : COMMON NORMALS: Yes no CVA tenderness BLADDER/KIDNEY EXAM: Yes no CVA tenderness Back/Pelvis: COMMON NORMALS: no CVA tenderness Extremity: COMMON NORMALS: normal to inspection and full ROM Neuro: COMMON NORMALS: patient oriented x3, moves all extremities, no focal motor deficits and no sensory deficits noted SENSORIUM/ORIENTATION: Yes alert MENINGEAL SIGNS: Yes no meningeal signs Psych: COMMON NORMALS: mental status grossly normal, cooperative and speech normal SPEECH: Yes normal speech Skin: COMMON NORMALS: no rashes or lesions noted GENERAL SKIN EXAM: no rashes or lesions noted Course Vital Signs: Vital signs: Vital Signs Temperature 98.2 F 10/15/25 12:06 Pulse Rate 69 10/15/25 12:06 Respiratory Rate 18 10/15/25 12:06 Blood Pressure 144/68 10/15/25 12:06 Pulse Oximetry 99 10/15/25 12:06 Oxygen Delivery Me thod Nasal Cannula 10/15/25 12:06 Oxygen Flow Rate 3 10/15/25 12:06 MDM - Abdominal Pain Medical Decision Making Patient presented for evaluation of lower abdominal pain associated with nausea vomiting diarrhea. Lab work is all reassuring, she was able to get a urinalysis here in the ED but did not report any urinary symptoms. Chest abdomen and pelvis CT, as there was mild hypoxia and wheezing on exam was unremarkable for any acute findings, other than colitis that is present. Reviewing her history she is chronically on oxygen so this is not new for her, and she has COPD. This is likely viral and she will treat at home symptomatically return with any worse. Lab Data 10/15/25 12:11 10/15/25 12:11 Labs/Radiology: Radiology Impressions Chest/Abdomen/Pelvis CT 10/15/25 12:04 IMPRESSION: 1. No acute findings. Centrilobular and paraseptal cystic emphysema. Mild coronary artery disease, borderline cardiomegaly. 2. See separate report for abdomen findings. IMPRESSION: 1. Possible bowel wall thickening throughout the large intestine, which is largely devoid of stool. The lumen is nondistended and this may be due to artifact however mild colitis should be considered. Otherwise negative for acute findings. 2. See separate report for chest findings. Laboratory Results WBC 7.59 10^3/uL (3.29-11.43) 10/15/25 12:11 RBC 4.10 10^6/uL (3.85-5.65) 10/15/25 12:11 Hgb 12.50 g/dL (11.27-16.99) 10/15/25 12:11 Hct 37.4 % (36-47) 10/15/25 12:11 MCV 91.2 fl (85-98) 10/15/25 12:11 MCH 30.5 pg (27-33) 10/15/25 12:11 MCHC 33.4 g/dL (30-55) 10/15/25 12:11 RDW 12.1 % (12.1-15.1) 10/15/25 12:11 Plt Count 225 10^3/cmm (157-399) 10/15/25 12:11 MPV 8.7 fL (7.4-10.4) 10/15/25 12:11 Neut % (Auto) 80.2 % 10/15/25 12:11 Lymph % (Auto) 12.8 % 10/15/25 12:11 [place] % (Auto) 5.4 % 10/15/25 12:11 Eos % (Auto) 0.9 % 10/15/25 12:11 Baso % (Auto) 0.4 % 10/15/25 12:11 Neut # (Auto) 6.09 10^3/uL (1.8-7.7) 10/15/25 12:11 Lymph # (Auto) 1.0 10^3/uL (0.8-4.8) 10/15/25 12:11 [place] # (Auto) 0.4 10^3/uL (0.2-0.9) 10/15/25 12:11 Eos # (Auto) 0.1 10^3/uL (0.0-0.8) 10/15/25 12:11 Baso # (Auto) 0.0 10^3/uL (0.0-0.1) 10/15/25 12:11 Nucleated RBC % (auto) 0 % 10/15/25 12:11 Nucleated RBCs # 0.0 /100WBC 10/15/25 12:11 Sodium 130 mmol/L (136-145) L 10/15/25 12:11 Potassium 4.1 mmol/L (3.5-5.1) 10/15/25 12:11 Chloride 92 mmol/L (98-107) L 10/15/25 12:11 Carbon Dioxide 28 mmol/L (22-29) 10/15/25 12:11 Anion Gap 14.1 (5-19) 10/15/25 12:11 BUN 5 mg/dL (8-23) L 10/15/25 12:11 Creatinine 0.5 mg/dL (0.5-0.9) 10/15/25 12:11 GFR Calculation 125.0 mL/min (90-130) 10/15/25 12:11 Glucose 169 mg/dL (65-115) H 10/15/25 12:11 Calculated Osmolality 271 mOsm/kg (285-295) L 10/15/25 12:11 Calcium 9.4 mg/dL (8.5-10.5) 10/15/25 12:11 Total Bilirubin 0.4 mg/dL (0.15-1.2) 10/15/25 12:11 AST 15 U/L (0-32) 10/15/25 12:11 ALT 17 U/L (0-33) 10/15/25 12:11 Alkaline Phosphatase 102 U/L (35-105) 10/15/25 12:11 Total Protein 7.3 g/dL (6.6-8.7) 10/15/25 12:11 Albumin 4.3 g/dL (3.5-5.2) 10/15/25 12:11 Globulin 3.0 g/dL (1.3-4.6) 10/15/25 12:11 Lipase 17 U/L (13-60) 10/15/25 12:11 All radiology interpretation(s) finalized by discharge Discharge Plan Discharge Patient Disposition: Home Clinical Impression: Gastroenteritis Condition: Stable Prescriptions: New ondansetron 4 mg tablet,disintegrating 4 mg PO TID PRN (Reason: nausea and vomiting) Qty: 30 0RF No Action Eliquis 5 mg tablet 5 mg PO BID (DME) cam boot See Rx Instructions .Route .MEDSUPPLY Qty: 1 0RF Rx Instructions: As directed oxybutynin chloride 5 mg tablet extended release 24hr 5 mg PO DAILY Qty: 30 0RF Trelegy Ellipta 100-62.5-25 mcg blister with device 1 inh inhalation DAILY Qty: 60 3RF (DME) CPAP Machine/Supplies See Rx Instructions .Route .MEDSUPPLY Qty: 1 0RF Rx Instructions: Order for CPAP Machine and Supplies (DME) CPAP w/Humidifier, Headgear See Rx Instructions .Route .MEDSUPPLY Qty: 1 0RF Rx Instructions: As directed quetiapine 150 mg tablet extended release 24 hr 150 mg PO BEDTIME Qty: 30 0RF duloxetine [Cymbalta] 60 mg capsule,delayed release(DR/EC) 120 mg PO QAM Qty: 60 0RF varenicline tartrate 1 mg tablet 1 mg PO BID Qty: 60 3RF montelukast 10 mg tablet 10 mg PO QAM albuterol sulfate 90 mcg/actuation HFA aerosol inhaler 2 inh INHALATION Q4H PRN (Reason: shortness of breath or wheezing) Qty: 18 0RF gabapentin 300 mg Capsule 300 mg PO TID acetaminophen 500 mg Tablet 1,000 - 1,500 mg PO Q6H PRN (Reason: Pain) levothyroxine 88 mcg tablet 88 mcg PO QAM valsartan 80 mg tablet 80 mg PO QAM azelastine 137 mcg (0.1 %) aerosol,spray 2 spray INTRANASAL BID trazodone 50 mg Tablet 100 mg PO BEDTIME bupropion HCl 150 mg tablet extended release 24 hr 150 mg PO QAM prednisone 20 mg tablet 20 mg PO DAILY Qty: 19 0RF Rx Instructions: 3 tab daily for 3 days, then 2 tab for 3 days, then 1 tab for 3 days, then 1/2 tab for 2 days. ipratropium-albuterol 0.5 mg-3 mg(2.5 mg base)/3 mL solution for nebulization 3 ml INHALATION QID omeprazole 20 mg capsule,delayed release(DR/EC) 40 mg PO QAM aspirin 81 mg Tablet,Delayed Release (Dr/Ec) 81 mg PO QAM Discharge Orders: Discharge ED (Routine); Ordered 10/15/25 Ordered By: Ruddy Moody Referrals: Bandar Cloud MD [Primary Care Provider, Family Practice] Patient Instructions: Patient Portal & Sheila Instructions Activity Restrictions/Additional Instructions: Discharge Instructions: Viral Gastroenteritis Your Diagnosis You have been diagnosed with viral gastroenteritis, commonly known as the stomach flu. This is an infection of the stomach and intestines caused by a virus. Your laboratory tests and CT scan were normal, which is reassuring. Most people recover completely within a few days with proper home care. What to Expect - Symptoms typically last 1-3 days but may persist up to a week - Diarrhea and vomiting should gradually improve - You may feel weak or tired for several days as you recover Home Care Instructions Hydration (Most Important) - Drink plenty of fluids to replace what you've lost through vomiting and diarrhea - Oral rehydration solutions (such as Pedialyte, CeraLyte, or Enfalyte) are best because they contain the right balance of salt, sugar, and electrolytes - Aim for 2-4 liters of fluid per day - Take small, frequent sips if you feel nauseated - Avoid beverages like apple juice, Gatorade, and soft drinks as they don't provide proper rehydration Diet - Resume eating as soon as you can tolerate it - this helps your intestines heal faster - Start with bland, [id number] foods like bananas, rice, toast, crackers, and broiled chicken - Return to your normal diet as tolerated - There is no need to follow a special diet Symptom Relief - For diarrhea: You may take loperamide (Imodium) as directed on the package to reduce diarrhea - For nausea: Take small sips of clear fluids; anti-nausea medication may help if prescribed - For cramping: Bismuth subsalicylate (Pepto-Bismol) may provide relief - Rest as needed Preventing Spread to Others - Wash your hands frequently with soap and water, especially after using the bathroom and before eating - Avoid preparing food for others until at least 48 hours after symptoms resolve - Clean and disinfect contaminated surfaces - Avoid close contact with others when possible When to Return to the Emergency Department Seek immediate medical attention if you develop any of the following: - Signs of severe dehydration: dizziness when standing, very dark urine or no urination for 8+ hours, extreme weakness, confusion - High fever of 101.3?F (38.5?C) or higher - Bloody stools or black, tarry stools - Severe abdominal pain that is worsening or different from cramping - Persistent vomiting that prevents you from keeping down any fluids for more than 12 hours - Symptoms that worsen instead of improve after 2-3 days - Signs of infection elsewhere (chest pain, difficulty breathing, severe headache) Follow-Up - You do not need a routine follow-up appointment if your symptoms improve as expected - Contact your primary care doctor if symptoms persist beyond 7 days - If you were given any prescriptions, take them as directed Questions? If you have questions or concerns about your recovery, contact your primary care physician or call our office. 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
[2025-10-15 12:17] LABS: Hematocrit 37.4 % (36-47); Hemoglobin 12.50 g/dL (11.27-16.99); Mean Corpuscular HGB Conc 33.4 g/dL (30-55); Mean Corpuscular Hemoglobin 30.5 pg (27-33); Mean Corpuscular Volume 91.2 fl (85-98); Nucleated Red Blood Cells % 0 %; Platelet Count 225 10^3/cmm (157-399); Red Blood Count 4.10 10^6/uL (3.85-5.65); White Blood Count 7.59 10^3/uL (3.29-11.43)
[2025-10-15 12:34] LABS: Alanine Aminotransferase 17 U/L (0-33); Albumin Level 4.3 g/dL (3.5-5.2); Alkaline Phosphatase 102 U/L (35-105); Anion Gap 14.1 (5-19); Aspartate Amino Transferase 15 U/L (0-32); Blood Urea Nitrogen 5 mg/dL (8-23); Calcium 9.4 mg/dL (8.5-10.5); Carbon Dioxide 28 mmol/L (22-29); Chloride 92 mmol/L (98-107); Globulin 3.0 g/dL (1.3-4.6); Glucose 169 mg/dL (65-115); Lipase 17 U/L (13-60); Osmolality Calculated 271 mOsm/kg (285-295); Potassium 4.1 mmol/L (3.5-5.1); Sodium 130 mmol/L (136-145); Total Protein 7.3 g/dL (6.6-8.7)
[2025-10-15] MEDS: iohexol 350 mg/mL 500 mL Btl (per mL) IV (13:50)
[2025-10-15] MEDS: HYDROmorphone 0.5 MG/0.5 ML INJ 1 MG IVP (15:00)
[2025-10-15] MEDS: ondansetron 2 mg/ML SDV 2 mL 4 MG IVP (15:00)
== END 2025-10-15 15:15 | disposition home or self-care (01) ==
PROVIDERS: Emergency Medicine; Emergency Provider Physician Assistant; PCP Family Medicine
DX: K52.9 Noninfective gastroenteritis and colitis, unspecified (principal); Z79.82 Long term (current) use of aspirin; Z79.01 Long term (current) use of anticoagulants; F17.210 Nicotine dependence, cigarettes, uncomplicated; E78.5 Hyperlipidemia, unspecified; J44.9 Chronic obstructive pulmonary disease, unspecified; I10 Essential (primary) hypertension
CPT/HCPCS: 36415; 71260; 74177; 80053; 83690; 85025; 96374; 96375; 99285; J1171; J2405